=== PATIENT | male | born 1955 | race Caucasian/White ===

== ENCOUNTER 2016-03-10 18:11 | Emergency (ER) | payer OTHER ==
[~2016-03-10] VITALS: Ht 167.6 cm; Wt 107.7 kg
[2016-03-10 18:14] VITALS: TEMP 36.7; Ht 167.6 cm; Wt 107.7 kg
[2016-03-10 19:00] LABS: BASO % 0.3 %; BASO ABS # 0.05 K/uL (0-0.2); COMPLETE YES; EOS % 0.8 %; HEMATOCRIT 40.5 % (42-52); IG% 0.2 %; LYMPH % 10.4 %; LYMPH ABS # 1.52 K/uL (1.2-3.4); MEAN CELL VOLUME 81.7 fL (80-100); MEAN CORPUSCULAR HEMOGLOBIN 29.2 pg (25-34); MEAN CORPUSCULAR HGB CONC 35.8 g/dl (32-36); MONO % 6.9 %; NEUT % 81.4 %; PLATELET COUNT 275 K/uL (130-400); RED BLOOD COUNT 4.96 M/uL (4.7-6.1); WHITE BLOOD COUNT 14.57 K/uL (4.8-10.8)
[2016-03-10 19:16] LABS: CREATININE 1.7 mg/dl (0.60-1.40)
[2016-03-10 19:17] LABS: C-REACTIVE PROTEIN 4.28 mg/dl (0-0.29); CALCIUM 9.1 mg/dl (8.5-10.1); POTASSIUM 4.6 mmol/L (3.5-5.1); URIC ACID 7.7 mg/dl (2.6-7.2)
[2016-03-10] MEDS ORDERED: OXYC-57 PO (19:38)
[2016-03-10] MEDS ORDERED: PERCOCET HOME PACK PO ONE (19:45)
[2016-03-10] MEDS ORDERED: OXYCODONE/ACETAMINOPHEN 5-325 TAB PO ONE (19:45)
--- NOTE | 2016-03-10 19:46 | DIAGNOSTIC IMAGING REPORT ---
RIGHT HAND MIN 3 VIEWS ROUTINE, RIGHT WRIST MIN 3 VIEWS ROUTINE, RIGHT FOREARM 2 VIEWS ROUTINE CLINICAL HISTORY: Right hand, wrist, and forearm pain. COMPARISON STUDY: None. FINDINGS: Soft tissue swelling at the posterior elbow. There does not appear to be a significant elbow effusion. There is also soft tissue swelling at the wrist. 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 No acute fracture or dislocation. There is also soft tissue swelling seen at the dominant and second and third fingers. There is soft tissue swelling at the fifth digit. IMPRESSION: 1. No fracture or dislocation within the right forearm, right wrist, right hand. 2. Soft tissue swelling at the olecranon, wrist, and hand. 3. Moderate degenerative changes. Electronically signed by: Harsha Roberts M.D. 03/10/2016 7:44 PM Dictated Date/Time: 03/10/2016 7:38 PM
[2016-03-10 20:27] VITALS: BP 101/67; PULSE 80; O2SAT 100
[2016-03-10] MEDS ORDERED: NAPR220T PO (22:03)
--- NOTE | 2016-03-11 11:07 | EMERGENCY ROOM VISIT NOTE ---
ED Visit Note First contact with patient: 18:21 Chief Complaint: Right wrist pain and swelling fingers. History of Present Illness: Mr. Moon is a 60-year-old white male who ambulates into the ED accompanied by his son complaining of pain extending from the mid forearm distally to his wrist, hands and fingers. Historically patient was seen in this emergency department on February 02 after 3 -4 days of wrist pain. At that time he denied any specific trauma. This was associated with paresthesias of the finger and he was diagnosed with carpal tunnel syndrome. He was discharged on NSAID medications and encouraged to follow-up with orthopedics. Patient does report he has been taking his NSAID medication without relief of his discomfort but he has not followed up with an sustainability specialist. Currently patient is complaining of a constant sharp pain extending from the mid forearm distally to the fingers in the right upper extremity. He rates his discomfort 10/10. His pain does not radiate superiorly. His pain worsens with palpations, all movements of the wrist and all movements of the MCP joints. He has not identified any alleviating factors related to the pain. As previously noted he reports he has been taken his Naprosyn without relief of his discomfort. Associated with his pain he continues to have paresthesias and weakness in all the fingers and thumb. 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 He denies fevers, chills, sweats, skin eruptions, shoulder pain, neck pain, elbow pain. Review of Systems: As noted above in history of present illness. 5 body systems were reviewed and found to be negative as noted above. Past Medical History: Gout, hypertension. Current Medications: Aleve. Allergies to Medications: Patient denies. Social History: Patient is not currently employed; he feels safe in his home environment; he demised tobacco and alcohol use. Physical Examination: Vital Signs: Date Time Temp Pulse Resp B/P Pulse Ox O2 Delivery O2 Flow Rate FiO2 03/10/16 20:27 80 18 101/67 100 Room Air 03/10/16 18:14 36.7 94 18 158/91 97 Room Air GENERAL: 60-year-old male in mild to moderate distress due to pain, nontoxic- appearing, afebrile and hemodynamically stable. NEUROLOGICAL: Awake, alert and oriented to person, place and time. Answering questions appropriately and following commands. SKIN: Warm, dry and pink. Right Hand: Patient has mild erythema over the posterior aspect of the right hand at the fourth and fifth MCP joints. This area does not appear cellulitic. The skin is not warm to palpation. There is no lymphangitis. RIGHT UPPER EXTREMITY: No gross bony deformity. No tenderness in the shoulder, elbow or proximal forearm. Moderate tenderness starting at the mid forearm and extending throughout the wrist, the hands and fingers. This is associated with mild to moderate swelling that starts at the level of the wrist and proceeds throughout the hand. I do not appreciate any bony crepitus or gross deformities. This entire area is tender to palpation and it is not one specific area. He does have slight prominence of pain over the distal radius and the fourth and fifth MCP joints. Decreased range of motion in pronation and supination of forearm, all movements of the wrist and flexion and extension of all MCP joints due to pain. Throughout the hand the skin was warm and pink and capillary refill was brisk. He was able to distinguish light sensations throughout the hand and fingers but did note there were paresthesias. ED Course: Patient is assessed as noted above. Right Hand X-Rays: Were read by myself and the radiologist showing no acute fractures or dislocations. Moderate osteoarthritis and the DIP and PIP joints with soft tissue swelling at the second, third and fifth fingers. Right Wrist X-Rays: Were read by myself and the radiologist showing no acute fractures or dislocations. There is moderate soft tissue swelling and moderate osteoarthritic changes throughout the wrist. Right Forearm X-Rays: Were read by myself and the radiologist showing no acute fractures or dislocations. Soft tissue swelling at the posterior elbow with no signs of joint effusion. Patient was given ice and one Percocet 5/325 mg tablet by mouth for pain. Patient was placed in an Ortho-Glass splint extending from the upper forearm through the wrist and hand similar to a volar splint. Patient's case was reviewed with Dr. Orta; we agreed on diagnostic approach, treatment, disposition and plan. Patient was educated about tonight's findings and instructed on his treatment plan; he verbalizes understanding and agreement with this plan. Clinical Impression: Right forearm, wrist and hand the pain. Moderate osteoarthritis changes. Decision-Making: Initially my differential diagnosis I considered gout, osteoarthritis, fracture, tendinitis, carpal tunnel syndrome and other causes. Disposition: Patient discharged home in stable condition accompanied by his son ; prior to departure he was reassessed and subjectively reported he was feeling better and rated his discomfort 5/10. Plan: Comfort measures were discussed with the patient including splint use, rest and a sliding pain medication scale of ibuprofen, acetaminophen and Percocet. Patient was encouraged [facility] care and treatment. Patient was encouraged return the ED for worsening/uncontrolled pain, uncontrolled swelling, worsening numbness/tingling, fevers or any new/ concerning symptoms.
== END 2016-03-10 20:28 | disposition home or self-care (01) ==
LOC: C.EDB 18:13 → C.EDD 20:28
DX: M79.631 Pain in right forearm (principal); M79.641 Pain in right hand; M25.531 Pain in right wrist; M19.041 Primary osteoarthritis, right hand; M19.031 Primary osteoarthritis, right wrist; M79.89 Other specified soft tissue disorders; I10 Essential (primary) hypertension

== ENCOUNTER → 2016-04-30 | Outpatient (CLI) | payer OTHER ==
[~2016-04-30] MED LIST: NAPR220T PO; OXYC-57 PO
[2016-04-30 17:25] LABS: BASO % 0.3 %; BASO ABS # 0.03 K/uL (0-0.2); COMPLETE YES; EOS % 1.3 %; HEMATOCRIT 38.6 % (42-52); IG% 0.2 %; LYMPH % 21.5 %; LYMPH ABS # 2.29 K/uL (1.2-3.4); MEAN CELL VOLUME 81.8 fL (80-100); MEAN CORPUSCULAR HEMOGLOBIN 28.4 pg (25-34); MEAN CORPUSCULAR HGB CONC 34.7 g/dl (32-36); MEAN PLATELET VOLUME 10.4 fL (7.4-10.4); MONO % 6.2 %; NEUT % 70.5 %; PLATELET COUNT 344 K/uL (130-400); RED BLOOD COUNT 4.72 M/uL (4.7-6.1); WHITE BLOOD COUNT 10.64 K/uL (4.8-10.8)
[2016-04-30 17:32] LABS: BLOOD UREA NITROGEN 25 mg/dl (7-18); BUN/CREATININE RATIO 14.4 (10-20); GLUCOSE 186 mg/dl (70-99); SODIUM 136 mmol/L (136-145)
[2016-04-30 17:33] LABS: ALT/SGPT 19 U/L (12-78); C-REACTIVE PROTEIN 1.01 mg/dl (0-0.29); CALCIUM 9.2 mg/dl (8.5-10.1); CARBON DIOXIDE 25 mmol/L (21-32); CHLORIDE 103 mmol/L (98-107); POTASSIUM 4.9 mmol/L (3.5-5.1)
[2016-04-30 17:36] LABS: ALB/GLOB RATIO 0.7 (0.9-2); ALKALINE PHOSPHATASE 130 U/L (45-117); AST/SGOT 14 U/L (15-37); CHOLESTEROL 225 mg/dl (0-200); CHOLESTEROL/HDL RATIO 5.6; HDL CHOLESTEROL 40 mg/dl; LDL CHOLESTEROL CALCULATED 122 mg/dl; RHEUMATOID FACTOR < 10.0 U/mL (0-15); TRIGLYCERIDES 313 mg/dl (0-150); VERY LOW DENSITY LIPOPROT CALC 63 mg/dl
[2016-04-30 17:52] LABS: ESTIMATED AVERAGE GLUCOSE 183 mg/dl; HA1C FLAG Normal (Normal)
== END | disposition home or self-care (01) ==
LOC: C.LABBFT 17:57
PROVIDERS: ATTEND Internal Medicine
DX: E78.5 Hyperlipidemia, unspecified (principal); I10 Essential (primary) hypertension; E11.9 Type 2 diabetes mellitus without complications; R70.0 Elevated erythrocyte sedimentation rate; R70.1 Abnormal plasma viscosity

== ENCOUNTER → 2016-05-07 | Outpatient (CLI) | payer OTHER ==
[2016-05-07 12:37] LABS: BASO % 0.1 %; BASO ABS # 0.02 K/uL (0-0.2); COMPLETE YES; EOS % 0.8 %; HEMATOCRIT 36.7 % (42-52); IG% 0.3 %; LYMPH % 11.5 %; LYMPH ABS # 1.56 K/uL (1.2-3.4); MEAN CELL VOLUME 81.2 fL (80-100); MEAN CORPUSCULAR HEMOGLOBIN 28.1 pg (25-34); MEAN CORPUSCULAR HGB CONC 34.6 g/dl (32-36); MEAN PLATELET VOLUME 10.7 fL (7.4-10.4); MONO % 10.1 %; NEUT % 77.2 %; PLATELET COUNT 294 K/uL (130-400); RED BLOOD COUNT 4.52 M/uL (4.7-6.1); WHITE BLOOD COUNT 13.61 K/uL (4.8-10.8)
[2016-05-07 12:42] LABS: BLOOD UREA NITROGEN 15 mg/dl (7-18); BUN/CREATININE RATIO 9.1 (10-20); CARBON DIOXIDE 21 mmol/L (21-32); CHLORIDE 103 mmol/L (98-107); GLUCOSE 254 mg/dl (70-99); PHOSPHORUS 2.9 mg/dl (2.5-4.9); POTASSIUM 4.4 mmol/L (3.5-5.1); SODIUM 135 mmol/L (136-145)
[2016-05-07 12:45] LABS: FERRITIN 261.4 ng/ml (8.0-388.0); TOTAL IRON BINDING CAPACITY 256 mcg/dl (250-450)
[2016-05-08 16:36] LABS: ALBUMIN 3.4 G/DL (3.8-4.8); GAMMA GLOBULIN 1.4 G/DL (0.8-1.7); TOTAL PROTEIN 7.1 G/DL (6.2-8.3)
== END | disposition home or self-care (01) ==
LOC: C.LABBFT 10:32
PROVIDERS: ATTEND Internal Medicine
DX: E11.29 Type 2 diabetes mellitus with other diabetic kidney complication (principal); D64.9 Anemia, unspecified; R77.1 Abnormality of globulin

== ENCOUNTER → 2016-05-08 | Outpatient (CLI) | payer OTHER ==
[2016-05-08 12:24] LABS: URINE APPEARANCE CLEAR (CLEAR); URINE BILIRUBIN NEG (NEG); URINE COLOR YELLOW; URINE NITRITE NEG (NEG); URINE SPECIFIC GRAVITY 1.018 (1.000-1.030); UROBILINOGEN NEG (NEG)
[2016-05-08 12:34] LABS: MANUAL MICROSCOPIC REQUIRED? NO; REVIEW REQ? NO
[2016-05-08 13:03] LABS: URINE TOTAL PROTEIN 165.2 mg/dl (0-11.9)
== END | disposition home or self-care (01) ==
LOC: C.LABBFT 10:19
PROVIDERS: ATTEND Internal Medicine
DX: E11.29 Type 2 diabetes mellitus with other diabetic kidney complication (principal)

== ENCOUNTER → 2016-05-09 | Outpatient (CLI) | payer OTHER ==
[2016-05-09 11:34] LABS: PATIENT HEIGHT 170.2 cm
[2016-05-09 15:50] LABS: CREATININE 1.5 mg/dl (0.6-1.4)
[2016-05-09 16:09] LABS: URINE TOTAL PROTEIN 140.1 mg/dl (0-11.9)
[2016-05-13 06:17] LABS: ALBUMIN % 76.66 %; ALPHA-2-GLOBULIN % 3.46 %; BETA GLOBULIN % 7.98 %; CREATININE UR 124 MG/DL (20-370); GAMMA GLOBULIN % 10.93 %
== END | disposition home or self-care (01) ==
LOC: C.LABBFT 11:24
PROVIDERS: ATTEND Internal Medicine
DX: E11.29 Type 2 diabetes mellitus with other diabetic kidney complication (principal); R77.1 Abnormality of globulin

== ENCOUNTER → 2016-05-19 | Outpatient (CLI) | payer OTHER ==
--- NOTE | 2016-05-19 09:00 | DIAGNOSTIC IMAGING REPORT ---
ULTRASOUND KIDNEYS AND BLADDER CLINICAL HISTORY: Diabetes mellitus. COMPARISON STUDY: Abdominal CT dated 04/05/12. TECHNIQUE: Real-time, grayscale, and color flow sonography of the kidneys and bladder is performed. Images are reviewed in the transverse and longitudinal planes. FINDINGS: Kidneys: The kidneys there is straightening mild cortical atrophy and are normal in echotexture. The right kidney measures 11.3 x 5.5 x 6.1 cm and the left kidney measures 10.3 x 6.1 x 6.0 cm. There is no hydronephrosis. No shadowing renal calculi are identified. 2 right-sided renal cysts measure up to 1.7 cm. There is no sonographic evidence of solid mass lesion. No perinephric fluid is identified. Bladder: The bladder is decompressed. The bladder wall appears thickened and trabeculated suggesting chronic outlet obstruction. There is median lobe hypertrophy of the prostate. Bilateral ureteral jets were seen. Upper abdomen: Survey images of the liver show evidence of steatosis. IMPRESSION: 1. The kidneys demonstrate mild cortical atrophy and are without hydronephrosis. 2. The appearance of the bladder wall suggests chronic outlet obstruction. There is median lobe hypertrophy of the prostate. Electronically signed by: Donnell Daniel M.D. 05/19/2016 8:59 AM Dictated Date/Time: 05/19/2016 8:56 AM
== END | disposition home or self-care (01) ==
LOC: C.ULTR 08:06
PROVIDERS: ATTEND Internal Medicine
DX: E11.29 Type 2 diabetes mellitus with other diabetic kidney complication (principal); E11.65 Type 2 diabetes mellitus with hyperglycemia

== ENCOUNTER → 2016-09-11 | Outpatient (CLI) | payer OTHER ==
[~2016-09-11] MED LIST changes: -OXYC-57 PO
[2016-09-11 12:41] LABS: BASO % 0.6 %; BASO ABS # 0.05 K/uL (0-0.2); COMPLETE YES; HEMATOCRIT 40.3 % (42-52); IG% 0.2 %; LYMPH % 20.6 %; LYMPH ABS # 1.84 K/uL (1.2-3.4); MEAN CELL VOLUME 83.3 fL (80-100); MEAN CORPUSCULAR HEMOGLOBIN 28.1 pg (25-34); MEAN CORPUSCULAR HGB CONC 33.7 g/dl (32-36); MONO % 9.4 %; NEUT % 67.2 %; PLATELET COUNT 272 K/uL (130-400); RED BLOOD COUNT 4.84 M/uL (4.7-6.1); WHITE BLOOD COUNT 8.92 K/uL (4.8-10.8)
[2016-09-11 13:22] LABS: ESTIMATED AVERAGE GLUCOSE 120 mg/dl; HA1C FLAG Normal (Normal)
[2016-09-11 17:27] LABS: BLOOD UREA NITROGEN 20 mg/dl (7-18); BUN/CREATININE RATIO 14.1 (10-20); CALCIUM 9.3 mg/dl (8.5-10.1); CARBON DIOXIDE 25 mmol/L (21-32); CHLORIDE 106 mmol/L (98-107); GLUCOSE 112 mg/dl (70-99); POTASSIUM 4.5 mmol/L (3.5-5.1); SODIUM 138 mmol/L (136-145)
[2016-09-11 17:32] LABS: FERRITIN 190.3 ng/ml (8.0-388.0); TOTAL IRON BINDING CAPACITY 253 mcg/dl (250-450); URIC ACID 7.7 mg/dl (2.6-7.2)
[2016-09-11 18:36] LABS: LYME DISEASE AB IGG NEG (NEG); LYME DISEASE AB IGM NEG (NEG)
== END | disposition home or self-care (01) ==
LOC: C.LABBFT 11:14
PROVIDERS: ATTEND Internal Medicine
DX: N18.2 Chronic kidney disease, stage 2 (mild) (principal); M10.9 Gout, unspecified; M25.442 Effusion, left hand; E11.29 Type 2 diabetes mellitus with other diabetic kidney complication; D64.9 Anemia, unspecified; E55.9 Vitamin D deficiency, unspecified

== ENCOUNTER 2017-06-04 17:03 | Inpatient (IN) | payer OTHER ==
[~2017-06-04] VITALS: Ht 170.2 cm; Wt 102.8 kg
[2017-06-04] MEDS ORDERED: SODIUM CHLORIDE 0.9% 1000ML 1,000 ML IV STA ×2 (17:39→19:12)
[2017-06-04] MEDS ORDERED: ONDANSETRON INJ 2 MG/ML 2 ML VIAL IV STA (17:39)
[2017-06-04 18:24] LABS: BASO % 0.1 %; BASO ABS # 0.02 K/uL (0-0.2); EOS % 0.2 %; EOS ABS # 0.03 K/uL (0-0.5); HEMATOCRIT 35.2 % (42-52); HEMOGLOBIN 12.3 g/dL (14.0-18.0); IG# 0.09 K/uL (0.00-0.02); LYMPH ABS # 0.61 K/uL (1.2-3.4); MEAN CELL VOLUME 80.4 fL (80-100); MEAN CORPUSCULAR HEMOGLOBIN 28.1 pg (25-34); MEAN CORPUSCULAR HGB CONC 34.9 g/dl (32-36); MEAN PLATELET VOLUME 11.1 fL (7.4-10.4); MONO % 7.4 %; MONO ABS # 1.12 K/uL (0.11-0.59); NEUT % 87.7 %; NEUT ABS # 13.27 K/uL (1.4-6.5); PLATELET COUNT 170 K/uL (130-400); RED CELL DISTRIBUTION WIDTH CV 13.5 % (11.5-14.5); RED CELL DISTRIBUTION WIDTH SD 39.7 fL (36.4-46.3); WHITE BLOOD COUNT 15.14 K/uL (4.8-10.8)
--- NOTE | 2017-06-04 18:24 | DIAGNOSTIC IMAGING REPORT ---
CHEST ONE VIEW PORTABLE CLINICAL HISTORY: 62 years-old Male presenting with coarse breath sounds. TECHNIQUE: Portable upright AP view of the chest was obtained. COMPARISON: None. FINDINGS: Atherosclerosis of aortic arch. Cardiac silhouette enlarged. Mild prominence of pulmonary vasculature. Minimal hazy opacity at the right lung base. Small right pleural effusion. No large pneumothorax Osseous structures normal. IMPRESSION: 1. Right basilar infiltrate concerning for pneumonia. 2. Associated small right pleural effusion, possibly parapneumonic effusion. 3. Cardiomegaly with mild volume overload. No parker pulmonary edema. Electronically signed by: Telly Sol M.D. 06/04/2017 6:23 PM Dictated Date/Time: 06/04/2017 6:20 PM
[2017-06-04] MEDS ORDERED: HYDR5SYP11 PO (18:28)
[2017-06-04] MEDS ORDERED: LSN5 PO (18:28)
[2017-06-04] MEDS ORDERED: BXN500 PO (18:28)
[2017-06-04] MEDS ORDERED: ROSU10TA35 PO (18:28)
[2017-06-04] MEDS ORDERED: ALLO100T PO (18:28)
[2017-06-04] MEDS ORDERED: FERR1TAB62 PO (18:28)
[2017-06-04] MEDS ORDERED: AMR2 PO (18:28)
[2017-06-04 18:30] LABS: INR 0.9 (0.9-1.1); PTT PATIENT 32.9 SECONDS (21.0-31.0)
[2017-06-04 18:44] LABS: INFLUENZA B ANTIGEN Neg for Influ B (NEG)
[2017-06-04 19:06] LABS: ALBUMIN 2.2 gm/dl (3.4-5.0); CALCIUM 8.6 mg/dl (8.5-10.1); CREATININE 5.29 mg/dl (0.60-1.40); POTASSIUM 4.4 mmol/L (3.5-5.1); TOTAL PROTEIN 7.5 gm/dl (6.4-8.2)
[2017-06-04] MEDS ORDERED: CEFTRIAXONE SOD INJ 1 GM ADDVIAL IV STA (19:12)
[2017-06-04] MEDS ORDERED: AZITHROMYCIN IV 500 MG in DEXTROSE 5% 250ML 250 ML IV ONE (19:15)
[2017-06-04] MEDS ORDERED: PIPERACILL/TAZOBAC CONSULT ACTIVE PRN (20:15)
[2017-06-04] MEDS ORDERED: ALUMINUM/MAGNESIUM/SIMETH (MAALOX MAX) 30 ML UDC PO PRN (20:15)
[2017-06-04] MEDS ORDERED: MAGNESIUM HYDROXIDE SUSP 30 ML UDC PO PRN (20:15)
[2017-06-04] MEDS ORDERED: POLYETHYLENE (MIRALAX) 17 GM PACK PO PRN (20:15)
[2017-06-04] MEDS ORDERED: ONDANSETRON INJ 2 MG/ML 2 ML VIAL IV PRN (20:15)
[2017-06-04 20:30] VITALS: O2SAT 94; BMI 35.9
--- NOTE | 2017-06-04 20:33 | History and Physical ---
History & Physical Date & Time of Service: Jun 04, 2017 at 20:04 Chief Complaint: Respiratory Issues, Light Headed, Not Eating Primary Care Physician: Jagdeep Turk M.D. History of Present Illness Source: patient, family (niece) 62M with a PMHx of DM2 on oral agents, Gout, HTN p/w worsening fatigue. Pt was diagnosed with pneumonia as outpatient several days ago and was given clarithromycin. Pt states that his fatigue has continued to worsen. Has had poor PO intake for the past few days. Pt is accompanied by niece who says his mental status has slightly decreased from baseline. Pt denies any pain. He has been coughing a lot. A close contact family member was diagnosed two weeks ago with Influenza B. Pt's normal is walking, talking, he helps out his buddies with work projects. ROS: No abdominal pain, no dysuria, no leg pain, no gout attacks, no chest pain , no blurry vision, no N&Tingling, no diarrhea. Did vomit once after coughing so much. PMHx: Gout (no recent attacks). DM2, well controlled on Glimepiride. Denies any history of liver or kidney issues. PT denies liver issues, never had hepatitis. HBA1C was 7's in late 2017. Takes Naproxen. SHx: Does not chew, non smoker, no aclohol, denies all IV drug use. 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 Lives in [place]. Past Medical/Surgical History Medical Problems: (1) Carpal tunnel syndrome of right wrist (2) Cellulitis of hand, right (3) Diabetes mellitus with hyperglycemia Family History Cancer Diabetes mellitus Heart disease Hypertension Kidney disease Kidney stones Social History Smoking Status: Never Smoker Smokeless Tobacco Use: No Alcohol Use: none Drug Use: none Marital Status: single Housing status: lives alone Occupational Status: employed Immunizations History of Influenza Vaccine: Yes History of Tetanus Vaccine?: Yes History of Pneumococcal: Yes History of Hepatitis B Vaccine: No Allergies Coded Allergies: No Known Allergies (Unverified , 06/04/17) Home Medications Scheduled Allopurinol (Zyloprim), 100 MG PO DAILY Clarithromycin (Clarithromycin), 500 MG PO Q12 Ferrous Sulfate (Ferrous Sulfate), 325 MG PO BID Glimepiride (Glimepiride), 2 MG PO DAILY Lisinopril (Lisinopril), 5 MG PO DAILY Rosuvastatin Calcium (Rosuvastatin Calcium), 10 MG PO HS Scheduled PRN Hydrocodone W/ Homatropine (Hycodan 5/1.5MG 5 Ml), 5 ML PO Q4-6HRS PRN for Cough Naproxen Sodium (Aleve), 220 MG PO UD PRN for Pain Review of Systems Respiratory: + cough, + shortness of breath Cardiovascular: No chest pain Abdomen: + vomiting, No pain, No nausea, No diarrhea, No constipation Genitourinary - Male: No hematuria, No dysuria, No urinary frequency Endocrine: + fatigue Integumentary: No rash Physical Exam Vital Signs Date Time Temp Pulse Resp B/P (MAP) Pulse Ox O2 Delivery O2 Flow Rate FiO2 06/04/17 18:33 91 18 95 06/04/17 18:03 92 12 06/04/17 18:00 103 06/04/17 17:50 95 Room Air 06/04/17 17:15 36.7 99 22 90/61 95 Room Air General Appearance: WD/WN, no apparent distress Head: normocephalic, atraumatic Eyes: PERRL Neck: supple, no adenopathy, thyroid normal Respiratory/Chest: chest non-tender, no respiratory distress, no accessory muscle use, + pertinent finding (right and left bibasilar crackles, worse on the right. 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, no motor/sensory deficits, alert, normal mood/affect, normal reflexes, oriented x 3 Skin: normal color, warm/dry, no rash Diagnostics Laboratory Results Results Past 24 Hours Test 06/04/17 17:56 06/04/17 17:59 Range/Units Influenza Type A Antigen Neg for Influ A NEG Influenza Type B Antigen Neg for Influ B NEG White Blood Count 15.14 4.8-10.8 K/uL Red Blood Count 4.38 4.7-6.1 M/uL Hemoglobin 12.3 14.0-18.0 g/dL Hematocrit 35.2 42-52 % Mean Corpuscular Volume 80.4 80-100 fL Mean Corpuscular Hemoglobin 28.1 25-34 pg Mean Corpuscular Hemoglobin Concent 34.9 32-36 g/dl Platelet Count 170 130-400 K/uL Mean Platelet Volume 11.1 7.4-10.4 fL Neutrophils (%) (Auto) 87.7 % Lymphocytes (%) (Auto) 4.0 % Monocytes (%) (Auto) 7.4 % Eosinophils (%) (Auto) 0.2 % Basophils (%) (Auto) 0.1 % Neutrophils # (Auto) 13.27 1.4-6.5 K/uL Lymphocytes # (Auto) 0.61 1.2-3.4 K/uL Monocytes # (Auto) 1.12 0.11-0.59 K/uL Eosinophils # (Auto) 0.03 0-0.5 K/uL Basophils # (Auto) 0.02 0-0.2 K/uL RDW Standard Deviation 39.7 36.4-46.3 fL RDW Coefficient of Variation 13.5 11.5-14.5 % Immature Granulocyte % (Auto) 0.6 % Immature Granulocyte # (Auto) 0.09 0.00-0.02 K/uL Prothrombin Time 9.7 9.0-12.0 SECONDS Prothromb Time International Ratio 0.9 0.9-1.1 Activated Partial Thromboplast Time 32.9 21.0-31.0 SECONDS Partial Thromboplastin Ratio 1.3 Sodium Level 127 136-145 mmol/L Potassium Level 4.4 3.5-5.1 mmol/L Chloride Level 94 98-107 mmol/L Carbon Dioxide Level 23 21-32 mmol/L Anion Gap 10.0 3-11 mmol/L Blood Urea Nitrogen 90 7-18 mg/dl Creatinine 5.29 0.60-1.40 mg/dl Est Creatinine Clear Calc Drug Dose 17.1 ml/min Estimated GFR () 12.6 Estimated GFR (Non- 10.9 BUN/Creatinine Ratio 17.0 10-20 Random Glucose 138 70-99 mg/dl Calcium Level 8.6 8.5-10.1 mg/dl Magnesium Level 2.2 1.8-2.4 mg/dl Total Bilirubin 2.7 0.2-1 mg/dl Direct Bilirubin 1.8 0-0.2 mg/dl Aspartate Amino Transf (AST/SGOT) 48 15-37 U/L Alanine Aminotransferase (ALT/SGPT) 33 12-78 U/L Alkaline Phosphatase 118 45-117 U/L Total Protein 7.5 6.4-8.2 gm/dl Albumin 2.2 3.4-5.0 gm/dl Lipase 68 73-393 U/L Thyroid Stimulating Hormone (TSH) 0.553 0.300-4.500 uIu/ml Diagnostic Radiology CHEST ONE VIEW PORTABLE CLINICAL HISTORY: 62 years-old Male presenting with coarse breath sounds. TECHNIQUE: Portable upright AP view of the chest was obtained. COMPARISON: None. FINDINGS: Atherosclerosis of aortic arch. Cardiac silhouette enlarged. Mild prominence of pulmonary vasculature. Minimal hazy opacity at the right lung base. Small right pleural effusion. No large pneumothorax Osseous structures normal. IMPRESSION: 1. Right basilar infiltrate concerning for pneumonia. 2. Associated small right pleural effusion, possibly parapneumonic effusion. 3. Cardiomegaly with mild volume overload. No parker pulmonary edema. ABD/PELVIS NO IV OR ORAL CONT CLINICAL HISTORY: 62 years-old Male presenting with acute renal failure. TECHNIQUE: Multidetector CT of the abdomen and pelvis was performed without the use of intravenous contrast. IV contrast: None. A dose lowering technique was used consistent with the principles of ALARA (as low as reasonably achievable). COMPARISON: 04/05/2012. CT DOSE (mGy.cm): The estimated cumulative dose is 1120.91 mGy.cm. FINDINGS: Head Of Data topogram: Unremarkable. Lung bases: Extensive solid and groundglass consolidation in the right lower lobe primarily in a central distribution. Is also involves the right middle lobe. Pleural fluid or pleural thickening noted in the right major fissure. Additional more peripheral solid consolidation in the right lower lobe. Less extensive groundglass opacity noted in the left lower lobe as well as a centrally cavitating lesion in the posterior basal segment with a wall that measures approximately 4 mm in thickness (series 3 image 50). Normal heart size. Trace right pleural effusion. Liver: Normal morphology. Density consistent with hepatic steatosis. Biliary: No gross biliary ductal dilatation allowing for noncontrast technique. Gallbladder contains gallstones. Pancreas: Moderate parenchymal atrophy. Spleen: Parenchymal calcifications in the spleen suggest a history of chronic granulomas infection. The spleen is also mildly enlarged. Adrenal glands: Normal noncontrast appearance. Kidneys and ureters: Ill-defined hypodense lesion in the interpolar region of the right kidney is indeterminate. No hydronephrosis. Questionable calcification in the medullary pyramids of the kidneys versus miniscule punctate renal calculi. Ureters normal. Bladder: Circumferential bladder wall thickening likely indicating chronic bladder outlet obstruction. Pelvic organs: Prostate enlargement likely secondary to benign prostatic hyperplasia. Bowel: Postsurgical changes of appendectomy. No bowel obstruction. Peritoneal cavity: No free fluid or intraperitoneal gas. Lymph nodes: No gross lymphadenopathy allowing for noncontrast technique. Vasculature: Atherosclerosis of the normal caliber abdominal aorta. Abdominal wall: Normal. Musculoskeletal: Degenerative changes of the spine. IMPRESSION: 1. Findings consistent with multifocal pneumonia most prominently involving the right lower and right middle lobes. The full extent of the pneumonia is not fully visualized. Small right parapneumonic effusion. 2. Cavitary lesion and limited groundglass opacity in the left lower lobe. This is worrisome for multifocal involvement of infection. Specifically, the cavitary lesion is worrisome for a pulmonary abscess or as a consequence of septic emboli. Full imaging of the chest is recommended with chest CT. Differential considerations for this cavitary lesion are considered less likely but include neoplasm such as squamous cell carcinoma or vasculitis. 3. No acute intra-abdominal pathology. 4. Evidence of chronic bladder outlet obstruction secondary to prostatomegaly. 5. Postsurgical changes of appendectomy. 6. Ill-defined indeterminate right renal lesion, which may represent a cyst as seen on prior ultrasound from 05/19/2016. The report will be called/faxed according to standard departmental protocol. EKG Normal sinus rhythm Possible Left atrial enlargement Possible Anterior infarct (cited on or before 05-APR-2012) Abnormal ECG When compared with ECG of 05-APR-2012 23:15, No significant change was found Impression Assessment and Plan 62M with a PMHx of DM2 on oral agents, Gout, HTN p/w worsening fatigue, dehydration likely secondary to pneumonia and LINDSEY. Not altered. No cardiac history. Giving Zosyn, IVF and checking panels. CT abdo and lactate pending on admission. Pneumonia Crackles in LLL and RLL. Confirmed by X-ray. No chronic pneumonias. Never smoker. CT Abdo showed multifocal pneumonia in the RLL and RML and a worriesome LLL cavitary lesion suggesting abscess or consequence of septic embolic. CT Chest pending - consider Pulmonary consult or thoracic surgery if needed. s/p Ceftriaxone and Azithromycin in the ED. IV Zosyn renally dosed. Will obtain Blood cultures (obtained after Ceftriaxone and Azithromycin given in the ER. FYI.) LINDSEY s/p 2L of NSS in the ER. IVF of 125mls/hr, NSS. Follow up UA and CT Scans. Hyponatremia (127) NSS as above, watch for too rapid correction. Hyperbilirubinemia & Elevated LFTs. Unknown Origin. Will follow up findings from CT Abdo and Pelvis. CMP in AM. Will get Hepatitis Panel, pt denies any Hepatitis History or IV drug use. HLD c/w Rosuvastatin Gout Hold Allopurinol due to LINDSEY Prostatomegaly Incidental finding on CT, consider starting Flomax or putting in a diaz if symptomatic - pt did have trouble producing urine sample in the ER. DVT Proph Hep SQ TID Admit Tele. DIET: NPO after midnight except meds and ice chips and sips. FULL CODE Attending addendum: I have physically seen this patient, have supervised the medical residents activities, and agree with the H&P unless as otherwise noted. Assessment and Plan: Multifocal pneumonia/left lower lobe cavitary lesion-- Given ceftriaxone in the ED, and azithromycin canceled. Vancomycin IV per pharmacokinetic monitoring Zosyn 3.375 mg IV every 8 hours Levofloxacin 500 mg IV every 24 hours Duonebs every 4 hours while awake and every 2 hours when necessary. Solu-Medrol 40 mg IV every 8 hours Guaifenesin extended release 600 mg by mouth twice a day Nasal cannula oxygen titrate to keep pulse ox greater than or equal to 92% Sputum Gram stain and culture Duonebs every 4 hours while awake and every 2 hours when necessary. Acute renal failure/hyponatremia-- Creatinine 5.29 and sodium 127. Received 2 L normal saline in the ED. Place on normal saline at 125 ML's per hour. Serial BMP and magnesium levels. Abnormal LFTs-- Serial chemistry profile Acute hepatitis profile, urine drug screen and alcohol levels. Advanced Directives Existing Advance Directive: No Existing Living Will: No Existing Power of Ramp Agent: No Resuscitation Status VTE Prophylaxis Will order VTE Prophylaxis: Yes Social Service Consult None Apply Resident Involvement: Resident Care Provided Care Provided: Adult Hospital Medicine
--- NOTE | 2017-06-04 20:48 | DIAGNOSTIC IMAGING REPORT ---
ABD/PELVIS NO IV OR ORAL CONT CLINICAL HISTORY: 62 years-old Male presenting with acute renal failure. TECHNIQUE: Multidetector CT of the abdomen and pelvis was performed without the use of intravenous contrast. IV contrast: None. A dose lowering technique was used consistent with the principles of ALARA (as low as reasonably achievable). COMPARISON: 04/05/2012. CT DOSE (mGy.cm): The estimated cumulative dose is 1120.91 mGy.cm. FINDINGS: [employer] Manager topogram: Unremarkable. Lung bases: Extensive solid and groundglass consolidation in the right lower lobe primarily in a central distribution. Is also involves the right middle lobe. Pleural fluid or pleural thickening noted in the right major fissure. Additional more peripheral solid consolidation in the right lower lobe. Less extensive groundglass opacity noted in the left lower lobe as well as a centrally cavitating lesion in the posterior basal segment with a wall that measures approximately 4 mm in thickness (series 3 image 50). Normal heart size. Trace right pleural effusion. Liver: Normal morphology. Density consistent with hepatic steatosis. Biliary: No gross biliary ductal dilatation allowing for noncontrast technique. Gallbladder contains gallstones. Pancreas: Moderate parenchymal atrophy. Spleen: Parenchymal calcifications in the spleen suggest a history of chronic granulomas infection. The spleen is also mildly enlarged. Adrenal glands: Normal noncontrast appearance. Kidneys and ureters: Ill-defined hypodense lesion in the interpolar region of the right kidney is indeterminate. No hydronephrosis. Questionable calcification in the medullary pyramids of the kidneys versus miniscule punctate renal calculi. Ureters normal. Bladder: Circumferential bladder wall thickening likely indicating chronic bladder outlet obstruction. Pelvic organs: Prostate enlargement likely secondary to benign prostatic hyperplasia. Bowel: Postsurgical changes of appendectomy. No bowel obstruction. Peritoneal cavity: No free fluid or intraperitoneal gas. Lymph nodes: No gross lymphadenopathy allowing for noncontrast technique. Vasculature: Atherosclerosis of the normal caliber abdominal aorta. Abdominal wall: Normal. Musculoskeletal: Degenerative changes of the spine. IMPRESSION: 1. Findings consistent with multifocal pneumonia most prominently involving the right lower and right middle lobes. The full extent of the pneumonia is not fully visualized. Small right parapneumonic effusion. 2. Cavitary lesion and limited groundglass opacity in the left lower lobe. This is worrisome for multifocal involvement of infection. Specifically, the cavitary lesion is worrisome for a pulmonary abscess or as a consequence of septic emboli. Full imaging of the chest is recommended with chest CT. Differential considerations for this cavitary lesion are considered less likely but include neoplasm such as squamous cell carcinoma or vasculitis. 3. No acute intra-abdominal pathology. 4. Evidence of chronic bladder outlet obstruction secondary to prostatomegaly. 5. Postsurgical changes of appendectomy. 6. Ill-defined indeterminate right renal lesion, which may represent a cyst as seen on prior ultrasound from 05/19/2016. The report will be called/faxed according to standard departmental protocol. Electronically signed by: Telly Sol M.D. 06/04/2017 8:47 PM Dictated Date/Time: 06/04/2017 8:39 PM
[2017-06-04 21:23] VITALS: BP 127/80; PULSE 89; TEMP 37; O2SAT 94
[2017-06-04] MEDS ORDERED: PIPERACILL/TAZOBAC IV 4.5 GM in DEXTROSE 5% 100ML 100 ML IV ONE (21:30)
[2017-06-04] MEDS ORDERED: NAPR220T PO (22:03)
--- NOTE | 2017-06-04 22:27 | DIAGNOSTIC IMAGING REPORT ---
(CHEST) THORAX WITHOUT CLINICAL HISTORY: 62 years-old Male presenting with Evaluate Multifocal lesions, as seen on CT [place]. TECHNIQUE: Multidetector CT imaging of the chest was performed without the use of intravenous contrast. IV contrast: None. A dose lowering technique was used consistent with the principles of ALARA (as low as reasonably achievable). COMPARISON: Chest x-ray from earlier today. CT DOSE (mGy.cm): The estimated cumulative dose is 791.54 mGy.cm. FINDINGS: [employer] Manager topogram: Right basilar opacity. On soft tissue windows, normal thyroid. Bilateral gynecomastia. Numerous subcentimeter prominent mediastinal lymph nodes likely reactive. Normal aorta. Normal heart size. Small right pleural effusion. Calcified right pleural plaques. Hepatic steatosis. Parenchymal calcifications in the liver and spleen suggest a history of chronic granulomatous infection. On lung windows, extensive solid and groundglass consolidation in the right lower lobe centrally as well as the adjacent posterior central portion of the right middle lobe. Extensive cystic changes evident in the right lower lobe, which may reflect bronchiectasis at least in part. Peripheral consolidation in the right lower lobe. Extensive interlobular septal thickening in the right lower lobe centrally. Consolidation also noted in the superior segment of the left lower lobe. Patchy minimal groundglass opacity in the right upper lobe. Cavitary thick-walled lesion noted in the posterior basal left lower lobe. Minimal aerated secretions or debris within the cavity noted. Central airways patent. On bone windows, degenerative changes of the spine. IMPRESSION: 1. Findings consistent with multifocal pneumonia most prominently involving the right lower lobe. Consolidation involves all but the left upper lobe to varying degrees. Small parapneumonic effusion. 2. The degree of cystic change and/or bronchiectasis in the right lower lobe could suggest chronicity of infection. 3. Cavitary lesion in the left lower lobe. This may also relate to infection although this does raise concern for septic embolus. Given the extent of infection, this is felt less likely to represent neoplasm or vasculitis. 4. Calcified right pleural plaques suggest a history of asbestos exposure. 5. Peripheral consolidation in the right lower lobe could suggest rounded atelectasis, although involvement with infection is also likely. 6. Hepatic steatosis. 7. Evidence of prior granulomatous infection. Electronically signed by: Telly Sol M.D. 06/04/2017 10:25 PM Dictated Date/Time: 06/04/2017 10:15 PM
[2017-06-04 23:11] LABS: HEP C IGG 13 YRS+OLDER_RFLX NEG (NEG)
[2017-06-04 23:12] VITALS: BP 120/72; PULSE 90; TEMP 37.1; O2SAT 92
[2017-06-04] MEDS: SODIUM CHLORIDE 0.9% 1000ML 1,000 ML IV SCH (23:54)
[2017-06-04] MEDS: ACETAMINOPHEN 325 MG TAB PO PRN (23:55)
[2017-06-04] MEDS: HEPARIN SOD 5000 UNIT/0.5 ML CARP SQ SCH (23:59)
[2017-06-05 04:53] VITALS: BP 116/74; PULSE 81; TEMP 36.4; O2SAT 92
[2017-06-05 05:32] LABS: BASO % 0.1 %; BASO ABS # 0.01 K/uL (0-0.2); EOS % 0.8 %; HEMATOCRIT 32.1 % (42-52); HEMOGLOBIN 11.4 g/dL (14.0-18.0); IG# 0.07 K/uL (0.00-0.02); LYMPH % 4.8 %; LYMPH ABS # 0.61 K/uL (1.2-3.4); MEAN CELL VOLUME 79.5 fL (80-100); MEAN CORPUSCULAR HEMOGLOBIN 28.2 pg (25-34); MEAN CORPUSCULAR HGB CONC 35.5 g/dl (32-36); MEAN PLATELET VOLUME 10.5 fL (7.4-10.4); MONO % 8.8 %; MONO ABS # 1.11 K/uL (0.11-0.59); NEUT % 84.9 %; NEUT ABS # 10.76 K/uL (1.4-6.5); PLATELET COUNT 166 K/uL (130-400); RED CELL DISTRIBUTION WIDTH CV 13.5 % (11.5-14.5); RED CELL DISTRIBUTION WIDTH SD 39.1 fL (36.4-46.3); WHITE BLOOD COUNT 12.66 K/uL (4.8-10.8)
[2017-06-05 05:57] LABS: CALCIUM 8.2 mg/dl (8.5-10.1); CREATININE 3.82 mg/dl (0.60-1.40)
[2017-06-05] MEDS: SODIUM CHLORIDE 0.9% 1000ML 1,000 ML IV SCH ×3 (05:58→21:38)
[2017-06-05] MEDS: HEPARIN SOD 5000 UNIT/0.5 ML CARP SQ SCH ×3 (05:59→21:36)
[2017-06-05 06:00] LABS: TOTAL PROTEIN 6.8 gm/dl (6.4-8.2)
[2017-06-05] MEDS ORDERED: PIPERACILL/TAZOBAC IV 4.5 GM in SODIUM CHLORIDE 0.9% 100ML 100 ML IV SCH ×2 (06:00→14:00)
[2017-06-05] MEDS: ACETAMINOPHEN 325 MG TAB PO PRN ×2 (06:02→15:29)
[2017-06-05 07:21] VITALS: BP 127/74; PULSE 92; TEMP 36.7; O2SAT 91
--- NOTE | 2017-06-05 08:59 | Family Medicine Progress Note ---
Progress Note Date of Service Jun 05, 2017. Subjective Pt evaluation today including: conversation w/ patient Found patient resting in bed. Says that his breathing seems to have improved overnight. Only current c/o is a mild generalized headache. Denies any CP, SOB , or abdominal pain. No other acute patient concerns. This afternoon, found patient conversing easily. Says he feels "pretty good", denies a headache, but has his cough with phlegm. Denies any SOB or interval concerns. Constitutional: No fever, No chills Respiratory: + cough, No shortness of breath Cardiovascular: No chest pain, No edema Abdomen: No pain, No nausea, No vomiting Medications Current Inpatient Medications Medications (Trade) Dose Ordered Sig/Camron Route Start Time Stop Time Status Last Admin Dose Admin Heparin Sodium (Porcine) (Heparin Sq 5000 Unit/0.5ml) 5,000 unit Q8 SQ 06/04/17 22:00 07/04/17 21:59 06/05/17 05:59 5,000 UNIT Sodium Chloride 1,000 ml @ 125 mls/hr Q8H IV 06/04/17 21:30 06/06/17 21:29 06/05/17 05:58 125 MLS/HR Acetaminophen (Tylenol Tab) 650 mg Q4H PRN PO 06/04/17 20:15 07/04/17 20:14 06/05/17 06:02 650 MG Al Hydrox/Mg Hydrox/Simethicone (Maalox Max Susp) 15 ml Q4H PRN PO 06/04/17 20:15 07/04/17 20:14 Magnesium Hydroxide (Milk Of Magnesia Susp) 30 ml Q12H PRN PO 06/04/17 20:15 07/04/17 20:14 Ondansetron HCl (Zofran Inj) 4 mg Q6H PRN IV 06/04/17 20:15 07/04/17 20:14 Polyethylene (Miralax Powder Packet) 17 gm DAILY PRN PO 06/04/17 20:15 07/04/17 20:14 Piperacillin Sod/ Tazobactam Sod 4.5 gm/Sodium Chloride 120 ml @ 28.75 mls/ hr Q12H IV 06/05/17 06:00 06/12/17 05:59 06/05/17 05:58 28.75 MLS/HR Miscellaneous Information (Consult) 1 ea UD PRN N/A 06/04/17 20:15 07/04/17 20:14 Objective Vital Signs Date Time Temp Pulse Resp B/P (MAP) Pulse Ox O2 Delivery O2 Flow Rate FiO2 06/05/17 07:21 36.7 92 18 127/74 (91) 91 Room Air 06/05/17 04:53 36.4 81 18 116/74 (88) 92 Room Air 06/05/17 04:05 Room Air 06/05/17 00:05 Room Air 06/04/17 23:12 37.1 90 18 120/72 (88) 92 Room Air 06/04/17 21:23 37.0 89 18 127/80 (96) 94 Room Air 06/04/17 20:59 97 22 144/72 94 06/04/17 20:30 94 Room Air 06/04/17 20:09 97 22 144/72 94 Room Air 06/04/17 18:33 91 18 95 06/04/17 18:03 92 12 06/04/17 18:00 103 06/04/17 17:50 95 Room Air 06/04/17 17:15 36.7 99 22 90/61 95 Room Air Physical Exam Notes: General Appearance: Awake, alert & oriented, comfortable in general, ongoing dry cough, but appears in NAD. CV: +S1S2 RRR, no murmur. No peripheral edema. Pulm: Bilateral basilar crackles. Abdomen: +BS, soft, non-tender, non-distended. Extremities: No pedal edema or calf tenderness. Moving all extremities naturally and easily. Neuro: No gross neuro deficits. Lines: PIV. Laboratory Results 06/05/17 05:14 Red Blood Count 4.04, Mean Corpuscular Volume 79.5, Mean Corpuscular Hemoglobin 28.2, Mean Corpuscular Hemoglobin Concent 35.5, Mean Platelet Volume 10.5, Neutrophils (%) (Auto) 84.9, Lymphocytes (%) (Auto) 4.8, Monocytes (%) (Auto) 8.8, Eosinophils (%) (Auto) 0.8, Basophils (%) (Auto) 0.1, Neutrophils # (Auto) 10.76, Lymphocytes # (Auto) 0.61, Monocytes # (Auto) 1.11, Eosinophils # (Auto) 0.10, Basophils # (Auto) 0.01 06/05/17 05:14 Test 06/04/17 17:56 06/04/17 17:59 06/04/17 20:04 06/04/17 21:40 Influenza Type A Antigen Neg for Influ A (NEG) Influenza Type B Antigen Neg for Influ B (NEG) Prothrombin Time 9.7 SECONDS (9.0-12.0) Prothromb Time International Ratio 0.9 (0.9-1.1) Activated Partial Thromboplast Time 32.9 SECONDS (21.0-31.0) Partial Thromboplastin Ratio 1.3 Magnesium Level 2.2 mg/dl (1.8-2.4) Direct Bilirubin 1.8 mg/dl (0-0.2) Lipase 68 U/L (73-393) Thyroid Stimulating Hormone (TSH) 0.553 uIu/ml (0.300-4.500) Urine Color DK YELLOW Urine Appearance CLOUDY (CLEAR) Urine pH 5.0 (4.5-7.5) Urine Specific Odell 1.019 (1.000-1.030) Urine Protein 1+ (NEG) Urine Glucose (UA) NEG (NEG) Urine Ketones NEG (NEG) Urine Occult Blood 2+ (NEG) Urine Nitrite POS (NEG) Urine Bilirubin NEG (NEG) Urine Urobilinogen NEG (NEG) Urine Leukocyte Esterase TRACE (NEG) Urine WBC (Auto) 10-30 /hpf (0-5) Urine RBC (Auto) 10-30 /hpf (0-4) Urine Hyaline Casts (Auto) 5-10 /lpf (0-5) Urine Epithelial Cells (Auto) 20-30 /lpf (0-5) Urine Bacteria (Auto) 1+ (NEG) Urine Pathogenic Casts 5-10 GRANULAR CASTS /lpf (0) Lactic Acid Level 1.3 mmol/L (0.4-2.0) Hepatitis B Surface Antigen NEG (NEG) Hepatitis C Antibody Screen NEG (NEG) Hepatitis C Antibody NEG (NEG) Test 06/05/17 05:14 White Blood Count 12.66 K/uL (4.8-10.8) Red Blood Count 4.04 M/uL (4.7-6.1) Hemoglobin 11.4 g/dL (14.0-18.0) Hematocrit 32.1 % (42-52) Mean Corpuscular Volume 79.5 fL (80-100) Mean Corpuscular Hemoglobin 28.2 pg (25-34) Mean Corpuscular Hemoglobin Concent 35.5 g/dl (32-36) Platelet Count 166 K/uL (130-400) Mean Platelet Volume 10.5 fL (7.4-10.4) Neutrophils (%) (Auto) 84.9 % Lymphocytes (%) (Auto) 4.8 % Monocytes (%) (Auto) 8.8 % Eosinophils (%) (Auto) 0.8 % Basophils (%) (Auto) 0.1 % Neutrophils # (Auto) 10.76 K/uL (1.4-6.5) Lymphocytes # (Auto) 0.61 K/uL (1.2-3.4) Monocytes # (Auto) 1.11 K/uL (0.11-0.59) Eosinophils # (Auto) 0.10 K/uL (0-0.5) Basophils # (Auto) 0.01 K/uL (0-0.2) RDW Standard Deviation 39.1 fL (36.4-46.3) RDW Coefficient of Variation 13.5 % (11.5-14.5) Immature Granulocyte % (Auto) 0.6 % Immature Granulocyte # (Auto) 0.07 K/uL (0.00-0.02) Anion Gap 9.0 mmol/L (3-11) Est Creatinine Clear Calc Drug Dose 23.6 ml/min Estimated GFR () 18.7 Estimated GFR (Non- 16.1 BUN/Creatinine Ratio 22.0 (10-20) Calcium Level 8.2 mg/dl (8.5-10.1) Total Bilirubin 3.2 mg/dl (0.2-1) Aspartate Amino Transf (AST/SGOT) 39 U/L (15-37) Alanine Aminotransferase (ALT/SGPT) 30 U/L (12-78) Alkaline Phosphatase 111 U/L (45-117) Total Protein 6.8 gm/dl (6.4-8.2) Albumin 2.0 gm/dl (3.4-5.0) Globulin 4.8 gm/dl (2.5-4.0) Albumin/Globulin Ratio 0.4 (0.9-2) Assessment and Plan 62 yo male admitted on [id number] for PNA and acute kidney injury. PMH: DM2 on oral agents, HTN, gout, s/p appendectomy. Multifocal pneumonia: Per patient, diagnosed with PNA around 30Mar, started on clarithromycin. Ongoing cough and fatigue. Negative influenza here. CT chest concerning for multifocal pneumonia of possible chronic nature. Also noted cavitary lesion, possible septic embolus, as well as calcified pleural plaques. Afebrile here, but did get some tylenol. WBC 15 to 12 this am. Lactate 1.3. 05Apr given single-doses of ceftriaxone 2 grams and azithromycin 500 mg in ED. 06Apr started on zosyn 4.5 grams q12h. 05Apr BCx x 2 pending. - Suspect current infection is a CAP that did not fully respond (? resistant) to saul clarithromycin). Will switch coverage from zosyn back to ceftriaxone and azithromycin. - Will add albuterol mdi prn to help encourage some coughing. - Would benefit from follow-up CXR (or even bronchoscopy) in one month, sooner depending on how he continues to respond to the above. Acute kidney injury: Arrival Cr 5.29, down to 3.82 with hydration. No prior lab to compare to in [facility] system. Question of pre-renal on top of some post- renal (prostate) source. On IVF. Question of UTI: UA sample very dirty. 05Apr UCx no growth thus far. Prostatomegaly seen on CT a/p. Record notes difficulty giving urine sample in ED. Hyponatremia: Arrival Na 127, improved to 131 with IVF. Likely due to dehydration. Correcting. Hyperbilirubinemia & Elevated LFTs: AST mildly elevated, but total bili and direct bili also elevated. Lipase normal. Hepatic steatosis seen on CT chest. Gallstones seen on CT a/p. Hepatitis C negative. Hepatitis A and B testing pending. Patient is not symptomatic from a cholelithiasis perspective. May have Gilbert's syndrome vs fatty liver disease to account for lab findings. Indeterminate right renal lesion: Seen on CT a/p, possibly cyst as seen on prior [id number] u/s. Recommended PCM f/u for same. Prior medical issues: - HLD: Continue rosuvastatin. - Gout: Holding allopurinol due to LINDSEY. Code status: Full code. Diet: DM2, renal. DVT prophy: Heparin q8h. PT/OT: Deferred. Dispo: Admit to telemetry, will transfer today to med/surg. Resident Physician Supervision Note: I interviewed and examined the patient. Discussed with Dr. Christiansen and agree with findings and plan as documented in the note. Any exceptions or clarifications are listed here: None Documented By: Michael Huitron feeling better just a cough no significant sob no f/c/s lungs scattered rales no wheeze good air entry, nontoxic appearing. vitals stable pneumonia - multifocal and cavitary, but most likely is partially treated CAP that "smoldered" into current appearance vs less likely septic emboli (blood cultures pending) or pneumonia and malignancy (treat, repeat imaging and bronch if doesn't clear) -- abx. sepsis was present on admission w SIRS being white count and HR - improving. otherwise as above Resident Tracking Resident Involvement: Resident Care Provided Care Provided: Adult Hospital Medicine (inpatient)
[2017-06-05 11:00] VITALS: BP 116/71; PULSE 86; TEMP 36.7; O2SAT 92
[2017-06-05 15:10] VITALS: BP 112/64; PULSE 91; TEMP 37; O2SAT 94
[2017-06-05] MEDS ORDERED: NURSING DECISION MEDICATION ORDER SCH (16:00)
[2017-06-05] MEDS ORDERED: COUGH DROP (SUGAR FREE) LOZ 24 LOZ/1 BOX LOZ PRN (16:00)
[2017-06-05] MEDS: CEFTRIAXONE SOD INJ 1,000 MG in DEXTROSE 5% 50ML 50 ML IV SCH (19:04)
[2017-06-05 19:12] VITALS: BP 149/82; PULSE 91; TEMP 36.8; O2SAT 92
[2017-06-05] MEDS: AZITHROMYCIN IV 500 MG in DEXTROSE 5% 250ML 250 ML IV SCH (19:39)
[2017-06-05 23:36] VITALS: BP 127/69; PULSE 96; TEMP 36.7; O2SAT 92
[2017-06-06] MEDS: SODIUM CHLORIDE 0.9% 1000ML 1,000 ML IV SCH ×2 (05:23→13:40)
[2017-06-06] MEDS: HEPARIN SOD 5000 UNIT/0.5 ML CARP SQ SCH ×3 (05:23→21:09)
[2017-06-06 05:37] LABS: BASO % 0.1 %; BASO ABS # 0.01 K/uL (0-0.2); EOS % 0.6 %; EOS ABS # 0.08 K/uL (0-0.5); HEMATOCRIT 32.4 % (42-52); HEMOGLOBIN 11.6 g/dL (14.0-18.0); IG# 0.11 K/uL (0.00-0.02); LYMPH % 4.9 %; LYMPH ABS # 0.67 K/uL (1.2-3.4); MEAN CELL VOLUME 79.6 fL (80-100); MEAN CORPUSCULAR HEMOGLOBIN 28.5 pg (25-34); MEAN CORPUSCULAR HGB CONC 35.8 g/dl (32-36); MEAN PLATELET VOLUME 10.1 fL (7.4-10.4); MONO % 13.1 %; NEUT % 80.5 %; NEUT ABS # 11.12 K/uL (1.4-6.5); PLATELET COUNT 207 K/uL (130-400); RED CELL DISTRIBUTION WIDTH CV 14.1 % (11.5-14.5); RED CELL DISTRIBUTION WIDTH SD 40.4 fL (36.4-46.3); WHITE BLOOD COUNT 13.79 K/uL (4.8-10.8)
[2017-06-06 06:12] LABS: ALBUMIN 1.9 gm/dl (3.4-5.0); CREATININE 2.26 mg/dl (0.60-1.40); POTASSIUM 4.2 mmol/L (3.5-5.1); TOTAL PROTEIN 6.9 gm/dl (6.4-8.2)
[2017-06-06 07:21] VITALS: BP 153/80; PULSE 104; TEMP 37.3; O2SAT 92
[2017-06-06] MEDS: ALBUTEROL HFA 8 GM INHALER INH PRN (08:18)
[2017-06-06] MEDS: ACETAMINOPHEN 325 MG TAB PO PRN ×2 (08:18→13:43)
[2017-06-06] MEDS: AZITHROMYCIN IV 500 MG in DEXTROSE 5% 250ML 250 ML IV SCH (08:56)
[2017-06-06] MEDS ORDERED: BENZONATATE 100MG CAP PO PRN (09:00)
[2017-06-06 09:04] LABS: HEPATITIS A IGM TC 51813E NON-REACTIVE (NON-REACTIVE); HEPATITIS B CORE IGM TC51854R NON-REACTIVE (NON-REACTIVE)
--- NOTE | 2017-06-06 09:34 | Family Medicine Progress Note ---
Progress Note Date of Service Jun 06, 2017. Subjective Pt evaluation today including: conversation w/ patient This morning, found patient sitting by the side of the bed. Says his breathing overall has improved but he still has the annoying cough. Denies any present CP , SOB, or other acute concerns. This afternoon, again found patient sitting on side of the bed, stating that it is a bit painful to cough. Requested a back heating pad. Was asking again how long he thinks this cough will last. Otherwise no new acute concerns. Constitutional: No fever Respiratory: + cough, + shortness of breath Cardiovascular: No chest pain, No edema Abdomen: No pain, No nausea, No vomiting Additional Comments: General Appearance: Awake, alert & oriented, comfortable in general, ongoing dry cough, but appears in NAD. CV: +S1S2 RRR, no murmur. No peripheral edema. Pulm: Bilateral basilar crackles (a little improved from yesterday). Abdomen: +BS, soft, non-tender, non-distended. Extremities: No pedal edema or calf tenderness. Moving all extremities naturally and easily. Neuro: No gross neuro deficits. Lines: PIV. Medications Current Inpatient Medications Medications (Trade) Dose Ordered Sig/Camron Route Start Time Stop Time Status Last Admin Dose Admin Heparin Sodium (Porcine) (Heparin Sq 5000 Unit/0.5ml) 5,000 unit Q8 SQ 06/04/17 22:00 07/04/17 21:59 06/05/17 21:36 5,000 UNIT Sodium Chloride 1,000 ml @ 125 mls/hr Q8H IV 06/04/17 21:30 06/06/17 21:29 06/06/17 05:23 125 MLS/HR Acetaminophen (Tylenol Tab) 650 mg Q4H PRN PO 06/04/17 20:15 07/04/17 20:14 06/06/17 08:18 650 MG Al Hydrox/Mg Hydrox/Simethicone (Maalox Max Susp) 15 ml Q4H PRN PO 06/04/17 20:15 07/04/17 20:14 Magnesium Hydroxide (Milk Of Magnesia Susp) 30 ml Q12H PRN PO 06/04/17 20:15 07/04/17 20:14 Ondansetron HCl (Zofran Inj) 4 mg Q6H PRN IV 06/04/17 20:15 07/04/17 20:14 Polyethylene (Miralax Powder Packet) 17 gm DAILY PRN PO 06/04/17 20:15 07/04/17 20:14 Menthol (Nice Melida) 1 melida PRN PRN MELIDA 06/05/17 16:00 07/05/17 15:59 06/05/17 17:02 24 MELIDA Azithromycin 500 mg/Dextrose 255 ml @ 125 mls/hr DAILY IV 06/05/17 19:00 06/12/17 18:59 06/06/17 08:56 125 MLS/HR Ceftriaxone Sodium 1000 mg/ Dextrose 60 ml @ 100 mls/hr Q24H IV 06/05/17 19:00 06/12/17 18:59 06/05/17 19:04 100 MLS/HR Albuterol (Ventolin Hfa Inhaler) 2 puffs Q4H PRN INH 06/05/17 18:00 07/05/17 17:59 06/06/17 08:18 2 PUFFS Objective Vital Signs Date Time Temp Pulse Resp B/P (MAP) Pulse Ox O2 Delivery O2 Flow Rate FiO2 06/06/17 07:21 37.3 104 20 153/80 (104) 92 Room Air 06/06/17 00:00 Room Air 06/05/17 23:36 36.7 96 18 127/69 (88) 92 Room Air 06/05/17 19:12 36.8 91 18 149/82 (104) 92 Room Air 06/05/17 16:00 Room Air 06/05/17 15:10 37.0 91 18 112/64 (80) 94 Room Air 06/05/17 12:00 Room Air 06/05/17 11:00 36.7 86 18 116/71 (86) 92 Room Air Physical Exam Notes: General Appearance: Awake, alert & oriented, sitting on the side of the bed, ongoing dry cough, appears in NAD. CV: +S1S2 RRR, no murmur. No peripheral edema. Pulm: Bilateral basilar crackles, perhaps a little improved. Abdomen: +BS, soft, non-tender, non-distended. Extremities: No pedal edema or calf tenderness. Moving all extremities naturally and easily. Neuro: No gross neuro deficits. Lines: PIV. Laboratory Results 06/06/17 05:28 Red Blood Count 4.07, Mean Corpuscular Volume 79.6, Mean Corpuscular Hemoglobin 28.5, Mean Corpuscular Hemoglobin Concent 35.8, Mean Platelet Volume 10.1, Neutrophils (%) (Auto) 80.5, Lymphocytes (%) (Auto) 4.9, Monocytes (%) (Auto) 13.1, Eosinophils (%) (Auto) 0.6, Basophils (%) (Auto) 0.1, Neutrophils # (Auto ) 11.12, Lymphocytes # (Auto) 0.67, Monocytes # (Auto) 1.80, Eosinophils # (Auto ) 0.08, Basophils # (Auto) 0.01 06/06/17 05:28 Test 06/06/17 05:28 06/06/17 07:35 White Blood Count 13.79 K/uL (4.8-10.8) Red Blood Count 4.07 M/uL (4.7-6.1) Hemoglobin 11.6 g/dL (14.0-18.0) Hematocrit 32.4 % (42-52) Mean Corpuscular Volume 79.6 fL (80-100) Mean Corpuscular Hemoglobin 28.5 pg (25-34) Mean Corpuscular Hemoglobin Concent 35.8 g/dl (32-36) Platelet Count 207 K/uL (130-400) Mean Platelet Volume 10.1 fL (7.4-10.4) Neutrophils (%) (Auto) 80.5 % Lymphocytes (%) (Auto) 4.9 % Monocytes (%) (Auto) 13.1 % Eosinophils (%) (Auto) 0.6 % Basophils (%) (Auto) 0.1 % Neutrophils # (Auto) 11.12 K/uL (1.4-6.5) Lymphocytes # (Auto) 0.67 K/uL (1.2-3.4) Monocytes # (Auto) 1.80 K/uL (0.11-0.59) Eosinophils # (Auto) 0.08 K/uL (0-0.5) Basophils # (Auto) 0.01 K/uL (0-0.2) RDW Standard Deviation 40.4 fL (36.4-46.3) RDW Coefficient of Variation 14.1 % (11.5-14.5) Immature Granulocyte % (Auto) 0.8 % Immature Granulocyte # (Auto) 0.11 K/uL (0.00-0.02) Anion Gap 4.0 mmol/L (3-11) Est Creatinine Clear Calc Drug Dose 39.7 ml/min Estimated GFR () 35.2 Estimated GFR (Non- 30.4 BUN/Creatinine Ratio 24.4 (10-20) Calcium Level 8.0 mg/dl (8.5-10.1) Total Bilirubin 5.0 mg/dl (0.2-1) Aspartate Amino Transf (AST/SGOT) 52 U/L (15-37) Alanine Aminotransferase (ALT/SGPT) 36 U/L (12-78) Alkaline Phosphatase 167 U/L (45-117) Total Protein 6.9 gm/dl (6.4-8.2) Albumin 1.9 gm/dl (3.4-5.0) Globulin 5.0 gm/dl (2.5-4.0) Albumin/Globulin Ratio 0.4 (0.9-2) Bedside Glucose 147 mg/dl (70-99) Assessment and Plan 62 yo male admitted on [id number] for PNA and acute kidney injury. PMH: DM2 on oral agents, HTN, gout, s/p appendectomy. Multifocal pneumonia: Per patient, diagnosed with PNA around 30Mar, started on clarithromycin. Ongoing cough and fatigue. CT chest concerning for multifocal pneumonia of possible chronic nature. Also noted cavitary lesion, possible septic embolus, as well as calcified pleural plaques. WBC stable around 13. 05Apr given single-doses of ceftriaxone 2 grams and azithromycin 500 mg in ED. 06Apr started on zosyn 4.5 grams q12h. 05Apr BCx x 2 with no growth to date. Suspect current infection is a CAP that did not fully respond (? resistant) to the clarithromycin). 06Apr switched back to ceftriaxone and azithromycin. Added albuterol mdi prn to help encourage some coughing. - Would benefit from follow-up CXR vs CT chest (or even bronchoscopy) in one month, sooner depending on how he continues to respond to the above. Acute kidney injury: Arrival Cr 5.29, down to 2.2 with hydration. No prior lab to compare to in [facility] system. Question of pre-renal on top of some post-renal ( prostate) source. On IVF. Question of UTI: UA sample very dirty. 05Apr UCx no growth (final). Prostatomegaly seen on CT a/p. Record notes difficulty giving urine sample in ED. Hyponatremia: Arrival Na 127, improved to 135 with IVF. Likely due to dehydration. Hyperbilirubinemia & Elevated LFTs: AST mildly elevated, but total bili and direct bili also elevated. Lipase normal. Hepatic steatosis seen on CT chest. Gallstones seen on CT a/p. Hepatitis C negative. Hepatitis A and B testing pending. Patient is not symptomatic from a cholelithiasis perspective. May have Gilbert's syndrome vs fatty liver disease to account for lab findings. - However, T bili lyla to 5 since yesterday, so will get RUQ u/s for further evaluation. Indeterminate right renal lesion: Seen on CT a/p, possibly cyst as seen on prior [id number] u/s. Recommended PCM f/u for same. Prior medical issues: - HLD: Continue rosuvastatin. - Gout: Holding allopurinol due to LINDSEY. Code status: Full code. Diet: DM2, renal. DVT prophy: Heparin q8h. PT/OT: Deferred. Dispo: Admit on med/surg. Ideally would like to see if Cr normalizes before discharge from hospital. Resident Physician Supervision Note: I interviewed and examined the patient. Discussed with Dr. Christiansen and agree with findings and plan as documented in the note. Any exceptions or clarifications are listed here: None Documented By: Michael Huitron feeling better just a cough no significant sob no f/c/s lungs scattered rales no wheeze good air entry, nontoxic appearing. vitals stable pneumonia - multifocal and cavitary, but most likely is partially treated CAP that "smoldered" into current appearance vs less likely septic emboli (blood cultures negative to date) or pneumonia and malignancy (treat, repeat imaging and bronch if doesn't clear) -- abx. sepsis was present on admission w SIRS being white count and HR - improving. continue current care ARF - due to above, improving with fluids, continue fluids otherwise as above Resident Tracking Resident Involvement: Resident Care Provided Care Provided: Adult Hospital Medicine (inpatient)
[2017-06-06 15:11] VITALS: BP 147/76; PULSE 64; TEMP 36.8; O2SAT 93
[2017-06-06] MEDS: CEFTRIAXONE SOD INJ 1,000 MG in DEXTROSE 5% 50ML 50 ML IV SCH (18:20)
[2017-06-06 20:04] VITALS: BP 158/74; PULSE 93; TEMP 36.8; O2SAT 94
[2017-06-06] MEDS: GUAIFENESIN/CODEINE 100MG/10MG 5ML UDC PO SCH ×2 (21:11→21:13)
--- NOTE | 2017-06-06 21:35 | EMERGENCY ROOM VISIT NOTE ---
History Report prepared by Tim: Jan Hanson Under the Supervision of: Dr. Akbar Pavon M.D. First contact with patient: 17:25 Chief Complaint: DIZZY Stated Complaint: RESPIRATORY ISSUES, LIGHT HEADED, NOT EATING History of Present Illness The patient is a 62 year old white male with a past medical history of diabetes , hypertension, gout, and appendectomy who presents to the Emergency Room with complaints of constant fatigue and shortness of breath that he has been experiencing for the past 3 days. The patient complains of multiple symptoms including dizziness, a dry cough, and lack of appetite. The patient was diagnosed with Pneumonia recently and prescribed Clarithromycin. He denies any recent long travel, sick contacts, or tick bites. Source of History: patient Onset: 3 days Position: chest Quality: other (Shortness of breath) Timing: constant Associated Symptoms: + cough, + fatigue Note: Pt complains of dizziness Review of Systems See HPI for pertinent positives and negatives. A total of ten systems were reviewed and were otherwise negative. Past Medical & Surgical Medical Problems: (1) LINDSEY (acute kidney injury) (2) Hyperbilirubinemia (3) Pneumonia Hx of Diabetes, Hypertension Family History Cancer Diabetes mellitus Heart disease Hypertension Kidney disease Kidney stones Social History Smoking Status: Never Smoker Alcohol Use: none Drug Use: none Marital Status: single Occupation Status: employed Current/Historical Medications Scheduled Allopurinol (Zyloprim), 100 MG PO DAILY Clarithromycin (Clarithromycin), 500 MG PO Q12 Ferrous Sulfate (Ferrous Sulfate), 325 MG PO BID Glimepiride (Glimepiride), 2 MG PO DAILY Lisinopril (Lisinopril), 5 MG PO DAILY Rosuvastatin Calcium (Rosuvastatin Calcium), 10 MG PO HS Scheduled PRN Hydrocodone W/ Homatropine (Hycodan 5/1.5MG 5 Ml), 5 ML PO Q4-6HRS PRN for Cough Naproxen Sodium (Aleve), 220 MG PO UD PRN for Pain Allergies Coded Allergies: No Known Allergies (Unverified , 06/04/17) Physical Exam Vital Signs Date Time Temp Pulse Resp B/P (MAP) Pulse Ox O2 Delivery O2 Flow Rate FiO2 06/04/17 20:09 97 22 144/72 94 Room Air 06/04/17 18:33 91 18 95 06/04/17 18:03 92 12 06/04/17 18:00 103 06/04/17 17:50 95 Room Air 06/04/17 17:15 36.7 99 22 90/61 95 Room Air Physical Exam GENERAL: Awake, alert, mildly ill-appearing, NAD HENT: Normocephalic, atraumatic. EYES: Normal conjunctiva. Sclera non-icteric. NECK: Supple. No nuchal rigidity. FROM. RESPIRATORY: Bibasilar crackles present. Rhonchi throughout, but worst in the right chest. CARDIAC: RRR, no MRG ABDOMEN: Soft, NTND, BS+ MSK: No chest wall TTP, no LE edema NEURO: GCS 15, CN 2-12 intact, moves all 4s on command SKIN: No rash or jaundice noted. Medical Decision & Procedures ER Provider Diagnostic Interpretation: Radiology results as stated below per my review and radiologist interpretation: CHEST ONE VIEW PORTABLE CLINICAL HISTORY: 62 years-old Male presenting with coarse breath sounds. TECHNIQUE: Portable upright AP view of the chest was obtained. COMPARISON: None. FINDINGS: Atherosclerosis of aortic arch. Cardiac silhouette enlarged. Mild prominence of pulmonary vasculature. Minimal hazy opacity at the right lung base. Small right pleural effusion. No large pneumothorax Osseous structures normal. IMPRESSION: 1. Right basilar infiltrate concerning for pneumonia. 2. Associated small right pleural effusion, possibly parapneumonic effusion. 3. Cardiomegaly with mild volume overload. No parker pulmonary edema. Electronically signed by: Telly Sol M.D. 06/04/2017 6:23 PM Dictated Date/Time: 06/04/2017 6:20 PM Laboratory Results Test 06/04/17 17:56 06/04/17 17:59 06/04/17 20:04 Influenza Type A Antigen Neg for Influ A (NEG) Influenza Type B Antigen Neg for Influ B (NEG) Prothrombin Time 9.7 SECONDS (9.0-12.0) Prothromb Time International Ratio 0.9 (0.9-1.1) Activated Partial Thromboplast Time 32.9 SECONDS (21.0-31.0) Partial Thromboplastin Ratio 1.3 Magnesium Level 2.2 mg/dl (1.8-2.4) Lipase 68 U/L (73-393) Thyroid Stimulating Hormone (TSH) 0.553 uIu/ml (0.300-4.500) Urine Color DK YELLOW Urine Appearance CLOUDY (CLEAR) Urine pH 5.0 (4.5-7.5) Urine Specific [place] 1.019 (1.000-1.030) Urine Protein 1+ (NEG) Urine Glucose (UA) NEG (NEG) Urine Ketones NEG (NEG) Urine Occult Blood 2+ (NEG) Urine Nitrite POS (NEG) Urine Bilirubin NEG (NEG) Urine Urobilinogen NEG (NEG) Urine Leukocyte Esterase TRACE (NEG) Urine WBC (Auto) 10-30 /hpf (0-5) Urine RBC (Auto) 10-30 /hpf (0-4) Urine Hyaline Casts (Auto) 5-10 /lpf (0-5) Urine Epithelial Cells (Auto) 20-30 /lpf (0-5) Urine Bacteria (Auto) 1+ (NEG) Urine Pathogenic Casts 5-10 GRANULAR CASTS /lpf (0) Date/Time Source Procedure Growth Status 06/04/17 20:04 Urine , Clean Catch Urine Culture - Final THREE TYPES OF ORGANISMS PRESENT, ALL... Complete Laboratory results reviewed by me Medications Administered Medications (Trade) Dose Ordered Sig/Camron Route Start Time Stop Time Status Last Admin Dose Admin Sodium Chloride 1,000 ml @ 999 mls/hr Q1H1M STAT IV 06/04/17 17:39 06/04/17 18:39 DC 06/04/17 18:11 999 MLS/HR Ondansetron HCl (Zofran Inj) 4 mg NOW STAT IV 06/04/17 17:39 06/04/17 17:40 DC 06/04/17 18:11 4 MG Ceftriaxone Sodium (Rocephin Inj) 2 gm NOW STAT IV 06/04/17 19:12 06/04/17 19:16 DC 06/04/17 19:34 2 GM Sodium Chloride 1,000 ml @ 999 mls/hr Q1H1M STAT IV 06/04/17 19:12 06/04/17 20:12 DC 06/04/17 19:33 999 MLS/HR Acetaminophen (Tylenol Tab) 650 mg Q4H PRN PO 06/04/17 20:15 07/04/17 20:14 06/06/17 13:43 650 MG ECG Per My Interpretation Indication: other (Dizziness) Rate (beats per minute): 92 Rhythm: normal sinus Findings: other (Normal intervals, normal axis, no STS chagnes or TWI) ED Course 1731: The patient was evaluated in room B8. A complete history and physical exam was performed. 1738: Ordered Zofran 4 mg IV, Sodium Chloride 1000 mL @ 999 mL/hr IV. 1911: Ordered Sodium Chloride 1000 mL @ 999 mL/hr IV, Rocephin 2 gm . 1914: Ordered Azithromycin 255 mL @ 125 mL/hr IV. 1940: I discussed the case with Dr. Ivan Low [facility] [place] Resident Hospitalist. He will evaluate the patient for further treatment. Medical Decision The patient is a 62 year old white male with a past medical history of diabetes , hypertension, gout, and appendectomy who presents to the Emergency Room with complaints of constant fatigue that he has been experiencing for the past 3 days. Nursing notes reviewed. Ancillary studies and prior records reviewed. Differential diagnosis: Etiologies such as infections, reactive airway disease, pneumonia, pneumothorax , COPD, CHF, cardiac ischemia, pulmonary embolism, musculoskeletal, gastrointestinal, as well as others were entertained. Patient was seen and evaluated at bedside. Patient states not feeling well, fatigued, lightheaded. Recently seen for PNA and trx'ed w/ clarithromycin. Patient does have coarse breath sounds on exam. Blood work, EKG, trop, CXR, IVF completed. CXR concerning for PNA. Patient given Rocephin/azithro and was appropriate per pharmacy in light of ARF. K WNL. Creat of 5. WBC 15. Sepsis w/ PNA as source. After speaking w/ hospitalist, pseudamonal coverage added. Flu neg. Mild hyperbili. Pending UA. CT A/P added by hospitalist. Admitted for further eval and trx. Medication Reconcilliation Current Medication List: was personally reviewed by me Blood Pressure Screening Patient's blood pressure: Low blood pressure Referred to hospitalist. Consults Time Called: 1940 Consulting Physician: Dr. Ivan Low [facility] [place] Resident Hospitalist Returned Call: 1940 I discussed the [facility] He will evaluate the patient for further treatment. Impression Primary Impression: Pneumonia Additional Impressions: Acute renal failure Anemia Hyperbilirubinemia Scribe Attestation The scribe's documentation has been prepared under my direction and personally reviewed by me in its entirety. I confirm that the note above accurately reflects all work, treatment, procedures, and medical decision making performed by me. Departure Information Dispostion Being Evaluated By Hospitalist Referrals Jagdeep Turk M.D. (PCP) Patient Instructions My [facility] Problem Qualifiers Primary Impression: Pneumonia Pneumonia type: due to unspecified organism Laterality: right Lung location : lower lobe of lung Qualified Codes: J18.1 - Lobar pneumonia, unspecified organism Additional Impressions: Acute renal failure Acute renal failure type: unspecified Qualified Codes: N17.9 - Acute kidney failure, unspecified Anemia Anemia type: unspecified type Qualified Codes: D64.9 - Anemia, unspecified
[2017-06-07 00:20] VITALS: BP 154/77; PULSE 98; TEMP 37.5; O2SAT 91
[2017-06-07 06:00] LABS: HEMATOCRIT 31.9 % (42-52); HEMOGLOBIN 11.1 g/dL (14.0-18.0); MEAN CORPUSCULAR HEMOGLOBIN 28.2 pg (25-34); MEAN CORPUSCULAR HGB CONC 34.8 g/dl (32-36); MEAN PLATELET VOLUME 10.6 fL (7.4-10.4); PLATELET COUNT 242 K/uL (130-400); RED CELL DISTRIBUTION WIDTH CV 14.3 % (11.5-14.5); RED CELL DISTRIBUTION WIDTH SD 42.4 fL (36.4-46.3); WHITE BLOOD COUNT 12.66 K/uL (4.8-10.8)
[2017-06-07] MEDS: HEPARIN SOD 5000 UNIT/0.5 ML CARP SQ SCH ×3 (06:25→21:23)
[2017-06-07 06:40] LABS: ALBUMIN 1.7 gm/dl (3.4-5.0); CALCIUM 7.8 mg/dl (8.5-10.1); CREATININE 1.64 mg/dl (0.60-1.40); POTASSIUM 3.6 mmol/L (3.5-5.1)
[2017-06-07 06:43] LABS: TOTAL PROTEIN 6.6 gm/dl (6.4-8.2)
[2017-06-07 07:10] LABS: BASO % 0.1 %; BASO ABS # 0.01 K/uL (0-0.2); EOS % 0.6 %; EOS ABS # 0.07 K/uL (0-0.5); IG# 0.22 K/uL (0.00-0.02); LYMPH % 5.5 %; LYMPH ABS # 0.69 K/uL (1.2-3.4); MONO % 13.4 %; NEUT % 78.7 %; NEUT ABS # 9.97 K/uL (1.4-6.5)
[2017-06-07 07:14] VITALS: BP 147/78; PULSE 99; TEMP 37.2; O2SAT 91
[2017-06-07] MEDS: AZITHROMYCIN IV 500 MG in DEXTROSE 5% 250ML 250 ML IV SCH (08:51)
--- NOTE | 2017-06-07 08:57 | DIAGNOSTIC IMAGING REPORT ---
BILIARY ULTRASOUND CLINICAL HISTORY: Elevated bilirubin COMPARISON STUDY: CT scan of the abdomen and pelvis dated 4 x 18 FINDINGS: No focal hepatic masses were visualized. There is no ductal dilatation. The common bile duct measures 3 mm. There is no right-sided hydronephrosis. Several gallstones were visualized. Only a small portion of the pancreas was visualized. No abnormalities were delineated. IMPRESSION: 1. Cholelithiasis 2. No ductal dilatation. Electronically signed by: Trino Benz M.D. 06/07/2017 8:56 AM Dictated Date/Time: 06/07/2017 8:54 AM
--- NOTE | 2017-06-07 09:13 | Family Medicine Progress Note ---
Progress Note Date of Service Jun 07, 2017. Subjective Pt evaluation today including: conversation w/ patient Found patient sitting in the bedside chair. Says he has his ongoing cough, perhaps slightly more productive, and that his entire lower chest and abdomen hurt if he has strong coughing spells. Otherwise he denies any focal CP, any SOB, or any focal abdominal pain. Beyond the cough, and perhaps some mild low back pain, he denies any other acute concerns. Constitutional: No fever, No chills Respiratory: + cough Cardiovascular: No chest pain, No edema Abdomen: No pain, No nausea, No vomiting Medications Current Inpatient Medications Medications (Trade) Dose Ordered Sig/Camron Route Start Time Stop Time Status Last Admin Dose Admin Heparin Sodium (Porcine) (Heparin Sq 5000 Unit/0.5ml) 5,000 unit Q8 SQ 06/04/17 22:00 07/04/17 21:59 06/07/17 06:25 5,000 UNIT Acetaminophen (Tylenol Tab) 650 mg Q4H PRN PO 06/04/17 20:15 07/04/17 20:14 06/06/17 13:43 650 MG Al Hydrox/Mg Hydrox/Simethicone (Maalox Max Susp) 15 ml Q4H PRN PO 06/04/17 20:15 07/04/17 20:14 Magnesium Hydroxide (Milk Of Magnesia Susp) 30 ml Q12H PRN PO 06/04/17 20:15 07/04/17 20:14 Ondansetron HCl (Zofran Inj) 4 mg Q6H PRN IV 06/04/17 20:15 07/04/17 20:14 Polyethylene (Miralax Powder Packet) 17 gm DAILY PRN PO 06/04/17 20:15 07/04/17 20:14 Menthol (Nice Melida) 1 melida PRN PRN MELIDA 06/05/17 16:00 07/05/17 15:59 06/05/17 17:02 24 MELIDA Azithromycin 500 mg/Dextrose 255 ml @ 125 mls/hr DAILY IV 06/05/17 19:00 06/12/17 18:59 06/07/17 08:51 125 MLS/HR Ceftriaxone Sodium 1000 mg/ Dextrose 60 ml @ 100 mls/hr Q24H IV 06/05/17 19:00 4/13/18 18:59 06/06/17 18:20 100 MLS/HR Albuterol (Ventolin Hfa Inhaler) 2 puffs Q4H PRN INH 06/05/17 18:00 07/05/17 17:59 06/06/17 08:18 2 PUFFS Codeine Phosphate/ Guaifenesin (Robitussin-AC Sugar Free Syrup) 10 ml HS PO 06/06/17 21:00 07/06/17 20:59 06/06/17 21:13 5 ML Objective Vital Signs Date Time Temp Pulse Resp B/P (MAP) Pulse Ox O2 Delivery O2 Flow Rate FiO2 06/07/17 08:00 Room Air 06/07/17 07:14 37.2 99 18 147/78 (101) 91 06/07/17 00:29 Room Air 06/07/17 00:20 37.5 98 18 154/77 (102) 91 Room Air 06/06/17 20:30 Room Air 06/06/17 20:04 36.8 93 18 158/74 (102) 94 Room Air 06/06/17 16:00 Room Air 06/06/17 15:11 36.8 64 16 147/76 (99) 93 Physical Exam Notes: General Appearance: Awake, alert & oriented, ongoing dry cough, now appears jaundiced, but is in NAD. CV: +S1S2 borderline but regular tachycardia, no murmur. No peripheral edema. Pulm: Bilateral basilar crackles, perhaps a little improved. Abdomen: +BS, soft, non-tender including in RUQ, non-distended. Extremities: Slight pedal edema but no calf tenderness. Moving all extremities naturally and easily. Neuro: No gross neuro deficits. Lines: PIV. Laboratory Results 06/07/17 05:21 Red Blood Count 3.94, Mean Corpuscular Volume 81.0, Mean Corpuscular Hemoglobin 28.2, Mean Corpuscular Hemoglobin Concent 34.8, Mean Platelet Volume 10.6, Neutrophils (%) (Auto) 78.7, Lymphocytes (%) (Auto) 5.5, Monocytes (%) (Auto) 13.4, Eosinophils (%) (Auto) 0.6, Basophils (%) (Auto) 0.1, Neutrophils # (Auto ) 9.97, Lymphocytes # (Auto) 0.69, Monocytes # (Auto) 1.70, Eosinophils # (Auto ) 0.07, Basophils # (Auto) 0.01 06/07/17 05:21 Test 06/06/17 17:52 06/07/17 05:21 Direct Bilirubin 4.3 mg/dl (0-0.2) White Blood Count 12.66 K/uL (4.8-10.8) Red Blood Count 3.94 M/uL (4.7-6.1) Hemoglobin 11.1 g/dL (14.0-18.0) Hematocrit 31.9 % (42-52) Mean Corpuscular Volume 81.0 fL (80-100) Mean Corpuscular Hemoglobin 28.2 pg (25-34) Mean Corpuscular Hemoglobin Concent 34.8 g/dl (32-36) Platelet Count 242 K/uL (130-400) Mean Platelet Volume 10.6 fL (7.4-10.4) Neutrophils (%) (Auto) 78.7 % Lymphocytes (%) (Auto) 5.5 % Monocytes (%) (Auto) 13.4 % Eosinophils (%) (Auto) 0.6 % Basophils (%) (Auto) 0.1 % Neutrophils # (Auto) 9.97 K/uL (1.4-6.5) Lymphocytes # (Auto) 0.69 K/uL (1.2-3.4) Monocytes # (Auto) 1.70 K/uL (0.11-0.59) Eosinophils # (Auto) 0.07 K/uL (0-0.5) Basophils # (Auto) 0.01 K/uL (0-0.2) RDW Standard Deviation 42.4 fL (36.4-46.3) RDW Coefficient of Variation 14.3 % (11.5-14.5) Immature Granulocyte % (Auto) 1.7 % Immature Granulocyte # (Auto) 0.22 K/uL (0.00-0.02) Red Blood Cell Morphology Unremarkable Anion Gap 9.0 mmol/L (3-11) Est Creatinine Clear Calc Drug Dose 54.7 ml/min Estimated GFR () 51.9 Estimated GFR (Non- 44.8 BUN/Creatinine Ratio 23.0 (10-20) Calcium Level 7.8 mg/dl (8.5-10.1) Total Bilirubin 5.9 mg/dl (0.2-1) Aspartate Amino Transf (AST/SGOT) 46 U/L (15-37) Alanine Aminotransferase (ALT/SGPT) 37 U/L (12-78) Alkaline Phosphatase 217 U/L (45-117) Total Protein 6.6 gm/dl (6.4-8.2) Albumin 1.7 gm/dl (3.4-5.0) Globulin 4.9 gm/dl (2.5-4.0) Albumin/Globulin Ratio 0.3 (0.9-2) Assessment and Plan 62 yo male admitted on [id number] for PNA and acute kidney injury. PMH: DM2 on oral agents, HTN, gout, s/p appendectomy. Multifocal pneumonia: Per patient, diagnosed with PNA around 30Mar, started on clarithromycin. Ongoing cough and fatigue. Met sepsis criteria on admission. CT chest concerning for multifocal pneumonia of possible chronic nature. Also noted cavitary lesion, possible septic embolus, as well as calcified pleural plaques. WBC stable around 13. 05Apr given single-doses of ceftriaxone 2 grams and azithromycin 500 mg in ED. 06Apr started on zosyn 4.5 grams q12h. 05Apr BCx x 2 with no growth to date. Suspect current infection is a CAP that did not fully respond (? resistant) to the clarithromycin. 06Apr switched back to ceftriaxone and azithromycin. Added albuterol mdi prn to help encourage some coughing. - Would benefit from follow-up CXR vs CT chest (or even bronchoscopy) in one month, sooner depending on how he continues to respond to the above. Acute kidney injury: Arrival Cr 5.29, down to 1.6 with hydration. Believe his baseline Cr is around 1.3-1.7. Question of pre-renal source on top of some post -renal (prostate) source. On IVF. Question of UTI: UA sample very dirty. 05Apr UCx no growth (final). Prostatomegaly seen on CT a/p. Record notes difficulty giving urine sample in ED. Hyponatremia: Arrival Na 127, improved to 137 with IVF. Likely due to dehydration. Hyperbilirubinemia & Elevated LFTs: AST mildly elevated, but total bili and direct bili also elevated. Lipase normal. Hepatic steatosis seen on CT chest. Gallstones seen on CT a/p. Hepatitis A, B, C negative. Potential sources include elevation from his zosyn, Gilbert's syndrome, or fatty liver disease. However, both total and direct bili continue to rise. 08Apr RUQ u/s showed gallstones without evidence of obstruction. Patient now appears a bit jaundiced but still abdominally asymptomatic. - Discussed the above with patient. Will check labs in the AM. If still rising , would recommend getting GI consult. If improving, may just continue to monitor symptomatically. Indeterminate right renal lesion: Seen on CT a/p, possibly cyst as seen on prior [id number] u/s. Recommended PCM f/u for same. Prior medical issues: - HLD: Continue rosuvastatin. - Gout: Holding allopurinol due to LINDSEY. Code status: Full code. Diet: DM2, renal. DVT prophy: Heparin q8h. PT/OT: Deferred. Dispo: Admit on med/surg. Ideally would like to see if Cr normalizes before discharge from hospital. Resident Physician Supervision Note: I interviewed and examined the patient. Discussed with Dr. Christiansen and agree with findings and plan as documented in the note. Any exceptions or clarifications are listed here: None Documented By: Michael Huitron feeling better overall family present, updated extensively no significant sob no f/c/s lungs scattered rales no wheeze good air entry, nontoxic appearing. vitals stable, jaundiced pneumonia - multifocal and cavitary, but most likely is partially treated CAP that "smoldered" into current appearance vs less likely septic emboli (blood cultures negative to date) or pneumonia and malignancy (treat, repeat imaging and bronch if doesn't clear) -- abx. sepsis was present on admission w SIRS being white count and HR - improving. continue current care, likely home once bili issue settled ARF - due to above, back to baseline jaundice - ?cholestasis from zosyn? no sx, no signs of hepatitis or biliary obstruction. follow - if doesn't crest and trend down by tomorrow will need to consult GI otherwise otherwise as above Resident Tracking Resident Involvement: Resident Care Provided Care Provided: Adult Hospital Medicine (inpatient)
[2017-06-07 16:04] VITALS: BP 115/72; PULSE 95; TEMP 36.8; O2SAT 95
[2017-06-07] MEDS: CEFTRIAXONE SOD INJ 1,000 MG in DEXTROSE 5% 50ML 50 ML IV SCH (18:32)
[2017-06-07] MEDS: GUAIFENESIN/CODEINE 100MG/10MG 5ML UDC PO SCH (21:20)
[2017-06-08 00:17] VITALS: BP 123/72; PULSE 89; TEMP 37; O2SAT 91
[2017-06-08] MEDS: ACETAMINOPHEN 325 MG TAB PO PRN (01:23)
[2017-06-08 04:56] LABS: BASO % 0.2 %; BASO ABS # 0.02 K/uL (0-0.2); EOS ABS # 0.11 K/uL (0-0.5); HEMATOCRIT 29.6 % (42-52); HEMOGLOBIN 10.2 g/dL (14.0-18.0); IG# 0.31 K/uL (0.00-0.02); LYMPH % 9.2 %; LYMPH ABS # 1.06 K/uL (1.2-3.4); MEAN CELL VOLUME 81.8 fL (80-100); MEAN CORPUSCULAR HEMOGLOBIN 28.2 pg (25-34); MEAN CORPUSCULAR HGB CONC 34.5 g/dl (32-36); MEAN PLATELET VOLUME 10.1 fL (7.4-10.4); MONO % 10.4 %; NEUT % 76.5 %; NEUT ABS # 8.86 K/uL (1.4-6.5); PLATELET COUNT 247 K/uL (130-400); RED CELL DISTRIBUTION WIDTH CV 14.3 % (11.5-14.5); RED CELL DISTRIBUTION WIDTH SD 43.1 fL (36.4-46.3); WHITE BLOOD COUNT 11.56 K/uL (4.8-10.8)
[2017-06-08 05:38] LABS: ALBUMIN 1.6 gm/dl (3.4-5.0); CALCIUM 8.1 mg/dl (8.5-10.1); CREATININE 1.61 mg/dl (0.60-1.40); POTASSIUM 3.8 mmol/L (3.5-5.1); TOTAL PROTEIN 6.5 gm/dl (6.4-8.2)
[2017-06-08] MEDS: HEPARIN SOD 5000 UNIT/0.5 ML CARP SQ SCH ×3 (06:03→21:26)
[2017-06-08 07:25] VITALS: BP 126/80; PULSE 85; TEMP 36.9; O2SAT 93
[2017-06-08] MEDS: AZITHROMYCIN IV 500 MG in DEXTROSE 5% 250ML 250 ML IV SCH (08:36)
--- NOTE | 2017-06-08 13:57 | Pulmonary Consultation ---
History General Date of Service: Jun 08, 2017. Stated Complaint: Lamont, Hyperbilirubinemia, Pneumonia HPI The patient is a 62 year old male who presents to [facility] with complaints of Lamont, Hyperbilirubinemia, Pneumonia. The patient's primary care provider is Jagdeep Turk M.D.. 62y/o male admitted 06/04/2017 for pneumonia with failure to respond to outpatient treatment. PmHx: DM2, GOUT, HTN, anemia, protuneria, BPH, CKD and Dyslipidemia. He was seen by his PCP and treated with clarithromycin 50mmg BID for diagnosed with LLL pna. The patient had progression of his fatigue, poor oral intake and possible change in baseline metal status (per family).He also noted coughing with associated vomiting x1 and recent contact with influenza B positive family members. During my exam today the patient notes no dyspnea at rest but notable dyspnea on exertion. He has had increasing dyspnea associated with intermittent coughing and fatigue for the past 3 weeks. Prior to this he notes he was within normal limits. He also admits to being mildly confused but currently denies: Fever, chills, productive cough, hemoptysis, unintentional weight loss, B type symptoms, pleurisy or classic cardiac chest pain. Inpatient Work-Up WBC: 15K---12K PLT: 170K--247K H/H: 12/29 Na: 980863 Cr: 5.291.61 BUN: 9036 T Bili: 2.75.0 D Bili: 1.85.1 Previous Work-UP SED Rate (09/11/2016): >31 24 Hours Urine Pro (05/09/2016): 2312mg/day Serum Ymte-2-Erxmvooj (05/07/2016): >0.6G/DL CRP (04/30/2016) >1.01 Active Problems 1. Acute appendicitis 2. Anemia ( 3. BPH (benign prostatic hyperplasia) 4. Carbuncle 5. Carpal tunnel syndrome 6. Cataract of both eyes 7. Cellulitis of finger 8. Cellulitis of hand 9. Chronic kidney disease, stage II (mild) 10. Diabetes mellitus with renal manifestations, uncontrolled 11. Dyslipidemia 12. Elevated erythrocyte sedimentation rate and abnormality of plasma viscosity 13. Elevated serum globulin level 14. Erectile dysfunction 15. Gout 16. Hypertension 17. Joint pain, knee 18. Proteinuria 19. Vitamin D deficiency Surgical History 1. Appendectomy 2. Incision And Drainage Of Skin Abscess, Complicated Family History 1. Family history of malignant neoplasm (Z80.9) 2. Family history of Family Health Status Of Mother - 3. Denied: Family history of colon cancer (Z80.0) 4. Denied: Family history of colonic polyps 5. Denied: Family history of prostate cancer Social History Denied: History of Alcohol Use (History) Caffeine use (F15.90) Denied: History of Chews tobacco Denied: History of Drug Use Marital History - Single Never smoker Occupation: Single Current Meds 1. Ferrous Sulfate 325 (65 Fe) MG Oral Tablet; TAKE 1 TABLET TWICE DAILY; 2. Glimepiride 2 MG Oral Tablet; Take 1 tablet daily; 3. Rosuvastatin Calcium 10 MG Oral Tablet; TAKE 1 TABLET Bedtime 4. Allopurinol 100 MG Oral Tablet; TAKE 1 TABLET DAILY 5. MethylPREDNISolone 4 MG Oral Tablet Therapy Pack; USE DIRECTED; 6. Lisinopril 5 MG Oral Tablet; Take 1 tablet daily; 7. Vitamin D (Ergocalciferol) 27579 UNIT Oral Capsule; TAKE 1 CAPSULE WEEKLY; Allergies 1. Lipitor TABS 2. Zocor TABS Historian: patient, EMS Review of Systems Constitutional: reports: malaise Eyes: reports: no symptoms ENT: reports: no symptoms Cardiovascular: reports: no symptoms Respiratory: reports: as stated in HPI Gastrointestinal: reports: other (Bloating) Genitourinary - Male: reports: no symptoms Musculoskeletal: reports: myalgias Integumentary: reports: no symptoms Neurologic: reports: as stated in HPI Psychiatric: reports: no symptoms Endocrine: no symptoms Hematologic / Lymphatic: no symptoms Allergic / Immunologic: no symptoms Past Medical History Past Medical History: Please refer to HPI Past Surgical History: Please refer to HPI Family History Cancer Diabetes mellitus Heart disease Hypertension Kidney disease Kidney stones Please refer to HPI Social History Please refer to HPI Hx Tobacco Use In Past Year?: No Smoking Status: Never Smoker Marital status: single Housing status: lives alone Occupational Status: employed Immunizations History of Influenza Vaccine: Yes History of Tetanus Vaccine?: Yes History of Pneumococcal: Yes History of Hepatitis B Vaccine: No History of MDRO History of MDRO: No Allergies Coded Allergies: No Known Allergies (Unverified , 06/04/17) Current Medications Reported Home Medications Medications Dose Route/Sig Max Daily Dose Days Date Category Dose Instructions Glimepiride 2 Mg Tab 2 Mg PO DAILY 06/04/17 Reported Ferrous Sulfate 325 Mg Tab 325 Mg PO BID 06/04/17 Reported Rosuvastatin Calcium 10 Mg Tab 10 Mg PO HS 06/04/17 Reported Zyloprim (Allopurinol) 100 Mg Tab 100 Mg PO DAILY 06/04/17 Reported Lisinopril 5 Mg Tab 5 Mg PO DAILY 06/04/17 Reported Hycodan 5/1.5MG 5 Ml (Hydrocodone W/ Homatropine) 1 Syp Syp 5 Ml PO Q4-6HRS PRN 06/04/17 Reported Clarithromycin 500 Mg Tab 500 Mg PO Q12 7 06/04/17 Reported PRESCRIBED 06/02/2017, TAKE DIRECTED UNTIL GONE Aleve (Naproxen Sodium) 220 Mg Tab 220 Mg PO UD PRN 02/03/16 Reported TAKE PER PACKAGE DIRECTIONS Physical Physical Exam Vital Signs: Date Time Temp Pulse Resp B/P (MAP) Pulse Ox O2 Delivery O2 Flow Rate FiO2 06/08/17 08:00 Room Air 06/08/17 07:25 36.9 85 16 126/80 (95) 93 Room Air 06/08/17 00:17 37.0 89 19 123/72 (89) 91 Room Air 06/08/17 00:05 Room Air 06/07/17 20:05 Room Air 06/07/17 16:04 36.8 95 18 115/72 (86) 95 06/07/17 16:00 Room Air General Appearance: other (Ill appearing male but no apparent distress) Head: NORMOCEPHALIC, ATRAUMATIC Eyes: other (Positive scleral icterus) ENT: NORMAL EAR EXAM, NORMAL NASAL EXAM, other (Signs of jaundice in the sublingual region) Neck: NORMAL RANGE OF MOTION, NO TENDERNESS, TRACHEA MIDLINE, NO STRIDOR Respiratory: other (Bilateral rhonchi best appreciated at the bases with some expiratory wheezing decreased breath sounds) Cardiovasular: other (Distant heart sounds but regular rate and rhythm S1-S2 no murmurs rubs or gallops appreciated) Abdomen: other (Distended with positive bowel sounds soft nontender no hepatosplenomegaly appreciated and no rebound) Genitourinary - Male: EXTERNAL GENITALIA NORMAL Back: NORMAL INSPECTION, NO MIDLINE TENDERNESS, NO CVA TENDERNESS, NO PARAVERTEBRAL TTP Upper Extremities: NO EDEMA, NO DEFORMITY Lower Extremities: edema Edema: Bilateral LE (1+) Pulses: carotid (R) (2+), carotid (L) (2+), dorsalis pedis (R) (2+), dorsalis pedis (L) (2+) Neuro: other (Orientated 3 but notably lethargic) Reflexes: biceps (R) (2+), bicpes (L) (2+), patellar (R) (2+), patellar (L) (2+ ) Babinski Testing: right (downgoing), left (downgoing) Psychiatric: flat affect Diagnostics Labs Results Past 24 Hours Test 06/08/17 04:21 Range/Units White Blood Count 11.56 4.8-10.8 K/uL Red Blood Count 3.62 4.7-6.1 M/uL Hemoglobin 10.2 14.0-18.0 g/dL Hematocrit 29.6 42-52 % Mean Corpuscular Volume 81.8 80-100 fL Mean Corpuscular Hemoglobin 28.2 25-34 pg Mean Corpuscular Hemoglobin Concent 34.5 32-36 g/dl Platelet Count 247 130-400 K/uL Mean Platelet Volume 10.1 7.4-10.4 fL Neutrophils (%) (Auto) 76.5 % Lymphocytes (%) (Auto) 9.2 % Monocytes (%) (Auto) 10.4 % Eosinophils (%) (Auto) 1.0 % Basophils (%) (Auto) 0.2 % Neutrophils # (Auto) 8.86 1.4-6.5 K/uL Lymphocytes # (Auto) 1.06 1.2-3.4 K/uL Monocytes # (Auto) 1.20 0.11-0.59 K/uL Eosinophils # (Auto) 0.11 0-0.5 K/uL Basophils # (Auto) 0.02 0-0.2 K/uL RDW Standard Deviation 43.1 36.4-46.3 fL RDW Coefficient of Variation 14.3 11.5-14.5 % Immature Granulocyte % (Auto) 2.7 % Immature Granulocyte # (Auto) 0.31 0.00-0.02 K/uL Sodium Level 136 136-145 mmol/L Potassium Level 3.8 3.5-5.1 mmol/L Chloride Level 107 98-107 mmol/L Carbon Dioxide Level 23 21-32 mmol/L Anion Gap 6.0 3-11 mmol/L Blood Urea Nitrogen 36 7-18 mg/dl Creatinine 1.61 0.60-1.40 mg/dl Est Creatinine Clear Calc Drug Dose 55.8 ml/min Estimated GFR () 53.1 Estimated GFR (Non- 45.8 BUN/Creatinine Ratio 22.6 10-20 Random Glucose 146 70-99 mg/dl Calcium Level 8.1 8.5-10.1 mg/dl Total Bilirubin 6.6 0.2-1 mg/dl Direct Bilirubin 5.1 0-0.2 mg/dl Aspartate Amino Transf (AST/SGOT) 37 15-37 U/L Alanine Aminotransferase (ALT/SGPT) 34 12-78 U/L Alkaline Phosphatase 243 45-117 U/L Total Protein 6.5 6.4-8.2 gm/dl Albumin 1.6 3.4-5.0 gm/dl Globulin 4.9 2.5-4.0 gm/dl Albumin/Globulin Ratio 0.3 0.9-[address] showing bilateral infiltrative process in the lower lobes and left lower lobe 4-5 mm cavitary nodule EKG Interpretation: NORMAL EKG Impression Assessment and Plan 62-year-old male admitted with bilateral lower lobe infiltrative process and cavitary nodule: #1 Abnormal CAT scan: Patient has notable infiltrative patterns in the bilateral lower lobes with a 45 mm thick rind cavitary nodule. He also has a history of elevated sed rate CRP and proteinuria. Etiology such as vasculitic disease (GPA, SLE, MPA), infections (MSSA, MRSA, TB), aspiration or even malignancy. At this time at like to send off vasculitic panel, obtain 24-hour urine creatinine, send sed rate, CRP, pro-calcitonin and sputum culture. I would like to move forward with a bronchoscopic evaluation of this patient but he is currently having elevated conjugated bilirubin and will monitor his mental status. Patient will most likely require transbronchial biopsy.
[2017-06-08] MEDS ORDERED: PIPERACILL/TAZOBAC CONSULT ACTIVE PRN (14:15)
[2017-06-08 15:01] VITALS: BP 117/73; PULSE 92; TEMP 37; O2SAT 92
[2017-06-08] MEDS ORDERED: PIPERACILL/TAZOBAC IV 4.5 GM in NSS 100 ML IV ONE (16:00)
[2017-06-08] MEDS ORDERED: PIPERACILL/TAZOBAC IV 3.375 GM in DEXTROSE 5% 100ML 100 ML IV ONE (16:00)
--- NOTE | 2017-06-08 17:18 | GASTROINTESTINAL CONSULTATION ---
DATE OF CONSULTATION: 06/08/2017 REASON FOR EVALUATION: Abnormal liver tests. HISTORY OF PRESENT ILLNESS: The patient is a 62-year-old who has been feeling sick for the last 3 weeks with increasing cough, shortness of breath, and fatigue. The patient was seen as an outpatient by his primary care physician and placed on clarithromycin, but he failed to improve and ended up coming in through the ER with bilateral pneumonia. His chest x-ray, chest CT showed bilateral involvement with the cavitation in one of his lungs. Abdominal CT shows fatty liver but a normal-sized bile duct and some small gallstones in his gallbladder. His liver tests were noted to be abnormal with an elevated bilirubin of between 5 and 6 and an elevated alkaline phosphatase of about 240. His aminotransferase levels were normal. The patient is having a little bit of anorexia, but no abdominal pain or prior history of liver disease. He was initially started on Zosyn and then switched to another antibiotic. PAST MEDICAL HISTORY: Remarkable for gout, diabetes, hyperlipidemia. He has had an umbilical hernia repair and appendix removed. MEDICATIONS: Allopurinol, clarithromycin, iron sulfate, glimepiride, lisinopril, rosuvastatin, Aleve, Hycodan. ALLERGIES: None. FAMILY HISTORY: Positive for diabetes, heart disease, hypertension, kidney disease, and cancer. SOCIAL HISTORY: The patient is single, lives alone, is employed, does not smoke. Does drink any alcohol. REVIEW OF SYSTEMS: Positive for weakness, nausea, vomiting, shortness of breath, fatigue. PHYSICAL EXAMINATION: GENERAL: The patient is overweight, in no acute distress. VITAL SIGNS: Blood pressure is 117/73, pulse 92, temperature is 37, O2 saturation is 92% on room air. ABDOMEN: Shows a right lower quadrant and umbilical scar. Bowel sounds are normal. There is no hepatosplenomegaly. No masses or tenderness. IMPRESSION: The patient has abnormal liver tests. I suspect that these are part of a systemic infection rather than an intrinsic specific liver disease. Gilbert's disease rarely goes above a bilirubin of 3 and his bilirubin is currently about 6. It is possible it may be an adverse reaction to his antibiotic, although his antibiotics have not been on board very long. He does have an underlying fatty liver which I am sure predated his current illness. I plan on testing him for some other intrinsic liver diseases including hemochromatosis, alpha 1 antitrypsin deficiency, primary biliary cirrhosis, and hemolysis. I suspect he should be able to proceed with a bronchoscopy to help assess his pulmonary condition. We will continue to follow this patient during his hospital stay.
--- NOTE | 2017-06-08 18:10 | Family Medicine Progress Note ---
Progress Note Date of Service Jun 08, 2017. Subjective Pt evaluation today including: conversation w/ patient, physical exam Pain: Denies pain PO Intake: Tolerating well Voiding: no voiding problems Patient upright and alert this AM. Reports feeling better overall but no real change from yesterday. States he is finally starting to notice yellow hue of skin and whites of eyes Constitutional: No fever, No chills Respiratory: + cough, + sputum, No shortness of breath Abdomen: No pain, No nausea, No vomiting, No diarrhea Skin: + color change, No itch All Other Systems: Reviewed and Negative Medications Current Inpatient Medications Medications (Trade) Dose Ordered Sig/Camron Route Start Time Stop Time Status Last Admin Dose Admin Heparin Sodium (Porcine) (Heparin Sq 5000 Unit/0.5ml) 5,000 unit Q8 SQ 06/04/17 22:00 07/04/17 21:59 06/08/17 13:49 5,000 UNIT Acetaminophen (Tylenol Tab) 650 mg Q4H PRN PO 06/04/17 20:15 07/04/17 20:14 06/08/17 01:23 650 MG Al Hydrox/Mg Hydrox/Simethicone (Maalox Max Susp) 15 ml Q4H PRN PO 06/04/17 20:15 07/04/17 20:14 Magnesium Hydroxide (Milk Of Magnesia Susp) 30 ml Q12H PRN PO 06/04/17 20:15 07/04/17 20:14 Ondansetron HCl (Zofran Inj) 4 mg Q6H PRN IV 06/04/17 20:15 07/04/17 20:14 Polyethylene (Miralax Powder Packet) 17 gm DAILY PRN PO 06/04/17 20:15 07/04/17 20:14 Menthol (Nice Melida) 1 melida PRN PRN MELIDA 06/05/17 16:00 07/05/17 15:59 06/05/17 17:02 24 MELIDA Albuterol (Ventolin Hfa Inhaler) 2 puffs Q4H PRN INH 06/05/17 18:00 07/05/17 17:59 06/06/17 08:18 2 PUFFS Codeine Phosphate/ Guaifenesin (Robitussin-AC Sugar Free Syrup) 10 ml HS PO 06/06/17 21:00 07/06/17 20:59 06/07/17 21:20 10 ML Azithromycin (Zithromax Tab) 500 mg DAILY PO 06/09/17 09:00 06/11/17 08:59 Miscellaneous Information (Consult) 1 ea UD PRN N/A 06/08/17 14:15 07/08/17 14:14 Piperacillin Sod/ Tazobactam Sod 4.5 gm/Sodium Chloride 120 ml @ 30 mls/hr Q8H IV 06/09/17 00:00 06/16/17 00:00 Objective Vital Signs Date Time Temp Pulse Resp B/P (MAP) Pulse Ox O2 Delivery O2 Flow Rate FiO2 06/08/17 15:01 37.0 92 18 117/73 (88) 92 06/08/17 08:00 Room Air 06/08/17 07:25 36.9 85 16 126/80 (95) 93 Room Air 06/08/17 00:17 37.0 89 19 123/72 (89) 91 Room Air 06/08/17 00:05 Room Air 06/07/17 20:05 Room Air Physical Exam General Appearance: WD/WN, no apparent distress, + pertinent finding (Jaundice) Eyes: + abnormal sclerae exam (Icteric sclerae) ENT: hearing grossly normal Respiratory/Chest: chest non-tender, no respiratory distress, no accessory muscle use, + crackles Cardiovascular: regular rate, rhythm, no edema, no murmur Abdomen: normal bowel sounds, non tender, soft, no organomegaly Extremities: normal range of motion, non-tender, normal inspection, no pedal edema, no calf tenderness Neurologic/Psychiatric: no motor/sensory deficits, alert, normal mood/affect Skin: warm/dry, no rash, + jaundice Laboratory Results Last Resulted 06/08/17 04:21 Red Blood Count 3.62, Mean Corpuscular Volume 81.8, Mean Corpuscular Hemoglobin 28.2, Mean Corpuscular Hemoglobin Concent 34.5, Mean Platelet Volume 10.1, Neutrophils (%) (Auto) 76.5, Lymphocytes (%) (Auto) 9.2, Monocytes (%) (Auto) 10.4, Eosinophils (%) (Auto) 1.0, Basophils (%) (Auto) 0.2, Neutrophils # (Auto ) 8.86, Lymphocytes # (Auto) 1.06, Monocytes # (Auto) 1.20, Eosinophils # (Auto ) 0.11, Basophils # (Auto) 0.02 Last Resulted 06/08/17 04:21 Assessment and Plan 62 yo male admitted on [id number] for PNA and acute kidney injury. PMH: DM2 on oral agents, HTN, gout, s/p appendectomy. Sepsis secondary to Multifocal pneumonia: Per patient, diagnosed with PNA around 30Mar, started on clarithromycin. Ongoing cough and fatigue. Met sepsis criteria on admission. CT chest concerning for multifocal pneumonia of possible chronic nature. Also noted cavitary lesion, possible septic embolus, as well as calcified pleural plaques. WBC stable, decreasing to 11.5. 05Apr given single-doses of ceftriaxone 2 grams and azithromycin 500 mg in ED. 06Apr started on zosyn 4.5 grams q12h. 05Apr BCx x 2 with no growth to date. Suspect current infection is a CAP that did not fully respond (? resistant) to the clarithromycin. 06Apr switched back to ceftriaxone and azithromycin. Added albuterol mdi prn to help encourage some coughing. Patient reports he worked in [employer] x 30 years - Would benefit from follow-up CXR vs CT chest (or even bronchoscopy) in one month, sooner depending on how he continues to respond to the above. - Pulm consult: Converted ceftriaxone to zosyn again, continue azithromycin, for bronchoscopy/transbronchial biopsy. TB labs ordered. Vasculitic panel ordered Acute kidney injury: Arrival Cr 5.29, down to 1.6 with hydration. Baseline Cr is around 1.3-1.7. Question of pre-renal source on top of some post-renal ( prostate) source. On IVF. Hyponatremia: Arrival Na 127, improved to 137 with IVF. Likely due to dehydration. Hyperbilirubinemia & Elevated LFTs: AST mildly elevated, but total bili and direct bili also elevated and continue to rise. Lipase normal. Hepatic steatosis seen on CT chest. Gallstones seen on CT a/p. Hepatitis A, B, C negative. Potential sources include elevation from his zosyn, Gilbert's syndrome, or fatty liver disease. However, both total and direct bili continue to rise. 08Apr RUQ u/s showed gallstones without evidence of obstruction. Patient now appears jaundiced but still abdominally asymptomatic. - GI consulted: ordering intrinsic liver labs - Will order coag panel tomorrow am Indeterminate right renal lesion: Seen on CT a/p, possibly cyst as seen on prior [id number] u/s. Recommended PCM f/u for same. Prior medical issues: - HLD: Continue rosuvastatin. - Gout: Holding allopurinol due to LINDSEY. Code status: Full code. Diet: DM2, renal. DVT prophy: Heparin q8h. PT/OT: Deferred. Dispo: Admit on med/surg. Resident Tracking Resident Involvement: Resident Care Provided Care Provided: Adult Hospital Medicine Reviewed: Pt Seen/Exam by Me History breathing is good. appetite has been low. Constitutional: denies: fever Respiratory: negative: short of breath Cardiovascular: denies chest pain General Appearance: no apparent distress Respiratory: lungs clear, no respiratory distress Cardiovascular: regular rate, rhythm Gastrointestinal: soft Neurologic/Psychiatric: alert, oriented x 3 Skin Characteristics: warm/dry Assessment/Plan Resident Physician Supervision Note: I independently interviewed and examined the patient and verified the cervantes history and physical, reviewed labs and image studies, discussed the case with the resident Dr. Hancock and agree with the findings and care plan.
[2017-06-08] MEDS: GUAIFENESIN/CODEINE 100MG/10MG 5ML UDC PO SCH (21:28)
[2017-06-08 22:49] VITALS: BP 118/71; PULSE 93; TEMP 37.2; O2SAT 92
[2017-06-09] MEDS: PIPERACILL/TAZOBAC IV 4.5 GM in NSS 100 ML IV SCH ×4 (00:05→23:44)
[2017-06-09 04:46] LABS: HEMATOCRIT 29.5 % (42-52); HEMOGLOBIN 10.2 g/dL (14.0-18.0); MEAN CELL VOLUME 81.7 fL (80-100); MEAN CORPUSCULAR HEMOGLOBIN 28.3 pg (25-34); MEAN CORPUSCULAR HGB CONC 34.6 g/dl (32-36); PLATELET COUNT 284 K/uL (130-400); RED CELL DISTRIBUTION WIDTH CV 14.5 % (11.5-14.5); RED CELL DISTRIBUTION WIDTH SD 43.5 fL (36.4-46.3); WHITE BLOOD COUNT 14.25 K/uL (4.8-10.8)
[2017-06-09 04:55] LABS: INR 1.1 (0.9-1.1); PTT PATIENT 27.5 SECONDS (21.0-31.0)
[2017-06-09 05:20] LABS: ALBUMIN 1.5 gm/dl (3.4-5.0); CREATININE 1.73 mg/dl (0.60-1.40); TOTAL PROTEIN 6.7 gm/dl (6.4-8.2)
[2017-06-09 05:46] LABS: BASO % 0.1 %; BASO ABS # 0.01 K/uL (0-0.2); EOS % 1.1 %; EOS ABS # 0.16 K/uL (0-0.5); IG# 0.31 K/uL (0.00-0.02); LYMPH ABS # 1.14 K/uL (1.2-3.4); MONO % 7.8 %; MONO ABS # 1.11 K/uL (0.11-0.59); NEUT % 80.8 %; NEUT ABS # 11.52 K/uL (1.4-6.5)
[2017-06-09] MEDS: HEPARIN SOD 5000 UNIT/0.5 ML CARP SQ SCH ×3 (05:51→21:11)
[2017-06-09 07:09] VITALS: BP 99/64; PULSE 93; TEMP 37.4; O2SAT 94
[2017-06-09] MEDS: ACETAMINOPHEN 325 MG TAB PO PRN (08:16)
[2017-06-09] MEDS ORDERED: AZITHROMYCIN 250 MG TAB PO SCH (09:00)
--- NOTE | 2017-06-09 09:10 | Pulmonology Progress Note ---
Pulmonary Progress Note Date of Service Jun 09, 2017. Attending Dr. Mtz Subjective Patient notes his fatigue and coughing if improved over the last 24 hours but continues to have some thick white sputum production Objective Patient sitting up in bed no signs of respiratory insufficiency: Patient notes some mild thick white sputum for suction but denies fever, chills, pleurisy or classic cardiac chest pain Vital signs: Stable on room air Respiratory: Mild rhonchi appreciated at the bases bilaterally Cardiac: S1-S2 regular rate and rhythm Abdomen: Positive bowel sounds HEENT: Scleral icterus [employer]: Cranial nerves II through XII grossly intact, strength 5 out of 5 bilaterally PmHx: DM2, GOUT, HTN, anemia, protuneria, BPH, CKD and Dyslipidemia. He was seen by his PCP and treated with clarithromycin 50mmg BID for diagnosed with LLL pna. Labs WBC: 14K ESR: >90 INR: 1.1 PT: 11.5 aPTT: 27.5 Cr: 5.29---1.61---1.73 T Bili: 6.9 CRP: 16.60 Pro-calcitonin: 2.88 Albumin: 2.21.5 Hepatitis C antibody: Negative Pending Alpha-1 antitrypsin level 24 hour urine protein collection CHANEL screen Antimitochondrial antibody HIV QuantiFERON gold Sputum culture Medications: 1. Azithromycin 500 mg daily 2. Zosyn IV 3. Robitussin-AC 10 mL 4. Ventolin HFA every 4 as needed 5. Heparin subcu 5000 units every 8 hours Assessment & Plan 62-year-old male admitted with bilateral lower lobe infiltrative process and cavitary nodule: #1 Abnormal CAT scan: Serum workup still pending for rheumatologic, vasculitic and infectious etiologies. Will speak to the patient about performing bronchoscopic evaluation to be set up hopefully within the next 24-28 hours. We will repeat coags in the morning as bronchoscopic evaluation may require biopsies. Data Medications: Current Inpatient Medications Medications (Trade) Dose Ordered Sig/Camron Route Start Time Stop Time Status Last Admin Dose Admin Heparin Sodium (Porcine) (Heparin Sq 5000 Unit/0.5ml) 5,000 unit Q8 SQ 06/04/17 22:00 07/04/17 21:59 06/09/17 05:51 5,000 UNIT Acetaminophen (Tylenol Tab) 650 mg Q4H PRN PO 06/04/17 20:15 07/04/17 20:14 06/09/17 08:16 650 MG Al Hydrox/Mg Hydrox/Simethicone (Maalox Max Susp) 15 ml Q4H PRN PO 06/04/17 20:15 07/04/17 20:14 Magnesium Hydroxide (Milk Of Magnesia Susp) 30 ml Q12H PRN PO 06/04/17 20:15 07/04/17 20:14 Ondansetron HCl (Zofran Inj) 4 mg Q6H PRN IV 06/04/17 20:15 07/04/17 20:14 Polyethylene (Miralax Powder Packet) 17 gm DAILY PRN PO 06/04/17 20:15 07/04/17 20:14 Menthol (Nice Melida) 1 melida PRN PRN MELIDA 06/05/17 16:00 07/05/17 15:59 06/05/17 17:02 24 MELIDA Albuterol (Ventolin Hfa Inhaler) 2 puffs Q4H PRN INH 06/05/17 18:00 07/05/17 17:59 06/06/17 08:18 2 PUFFS Codeine Phosphate/ Guaifenesin (Robitussin-AC Sugar Free Syrup) 10 ml HS PO 06/06/17 21:00 07/06/17 20:59 06/08/17 21:28 10 ML Azithromycin (Zithromax Tab) 500 mg DAILY PO 06/09/17 09:00 06/11/17 08:59 06/09/17 08:16 500 MG Miscellaneous Information (Consult) 1 ea UD PRN N/A 06/08/17 14:15 07/08/17 14:14 Piperacillin Sod/ Tazobactam Sod 4.5 gm/Sodium Chloride 120 ml @ 30 mls/hr Q8H IV 06/09/17 00:00 06/16/17 00:00 06/09/17 08:15 30 MLS/HR Vital Signs: Date Time Temp Pulse Resp B/P (MAP) Pulse Ox O2 Delivery O2 Flow Rate FiO2 06/09/17 07:09 37.4 93 16 99/64 (76) 94 Room Air 06/09/17 00:05 Room Air 06/08/17 22:49 37.2 93 18 118/71 (87) 92 Room Air 06/08/17 16:00 Room Air 06/08/17 15:01 37.0 92 18 117/73 (88) 92 Laboratory Results: Last 24 Hours Test 06/08/17 14:15 06/08/17 16:43 06/09/17 04:24 Erythrocyte Sedimentation Rate > 90 mm/hr C-Reactive Protein 16.60 mg/dl Procalcitonin 2.88 ng/ml Iron Level 18 mcg/dl Total Iron Binding Capacity 132 mcg/dl White Blood Count 14.25 K/uL Red Blood Count 3.61 M/uL Hemoglobin 10.2 g/dL Hematocrit 29.5 % Mean Corpuscular Volume 81.7 fL Mean Corpuscular Hemoglobin 28.3 pg Mean Corpuscular Hemoglobin Concent 34.6 g/dl Platelet Count 284 K/uL Mean Platelet Volume 10.0 fL Neutrophils (%) (Auto) 80.8 % Lymphocytes (%) (Auto) 8.0 % Monocytes (%) (Auto) 7.8 % Eosinophils (%) (Auto) 1.1 % Basophils (%) (Auto) 0.1 % Neutrophils # (Auto) 11.52 K/uL Lymphocytes # (Auto) 1.14 K/uL Monocytes # (Auto) 1.11 K/uL Eosinophils # (Auto) 0.16 K/uL Basophils # (Auto) 0.01 K/uL RDW Standard Deviation 43.5 fL RDW Coefficient of Variation 14.5 % Immature Granulocyte % (Auto) 2.2 % Immature Granulocyte # (Auto) 0.31 K/uL Prothrombin Time 11.5 SECONDS Prothromb Time International Ratio 1.1 Activated Partial Thromboplast Time 27.5 SECONDS Partial Thromboplastin Ratio 1.1 Sodium Level 133 mmol/L Potassium Level 4.0 mmol/L Chloride Level 104 mmol/L Carbon Dioxide Level 23 mmol/L Anion Gap 6.0 mmol/L Blood Urea Nitrogen 34 mg/dl Creatinine 1.73 mg/dl Est Creatinine Clear Calc Drug Dose 51.9 ml/min Estimated GFR () 48.7 Estimated GFR (Non- 42.0 BUN/Creatinine Ratio 19.9 Random Glucose 144 mg/dl Calcium Level 8.0 mg/dl Total Bilirubin 6.9 mg/dl Aspartate Amino Transf (AST/SGOT) 40 U/L Alanine Aminotransferase (ALT/SGPT) 35 U/L Alkaline Phosphatase 307 U/L Total Protein 6.7 gm/dl Albumin 1.5 gm/dl Globulin 5.2 gm/dl Albumin/Globulin Ratio 0.3
--- NOTE | 2017-06-09 13:12 | ECHOCARDIOGRAM REPORT ---
*NOTICE TO RECEIVING REPUBLICAN AGENCY This information is strictly Confidential and protected under [place] law. [place] law prohibits you from making any further disclosure of this information unless further disclosure is expressly permitted by the written consent of the person to whom it pertains or is authorized by law. A general authorization for the release of medical or other information is not sufficient for this purpose. Hospital accepts no responsibility if the information is made available to any other person, INCLUDING THE PATIENT. Interpretation Summary * Name: JYOTI HARRISON Study Date: 06/09/2017 10:41 AM BP: 99/64 mmHg * Patient Location: [facility]\S\N288\S\2 HR: 85 * : 1955 (M/d/yyyy) Gender: Male Height: 67 in * Age: 62 yrs Ethnicity: [place] Weight: 226 lb * Ordering Physician: Ramón Wu * Referring Physician: Self, Referred * Performed By: Kiersten Kent RCS * * Reason For Study: ENDOCARDITIS * BSA: 2.1 m2 * -- Conclusions -- * 1. Normal LV size. Mild concentric LVH. * 2. Normal LV systolic function. LVEF 60-65%. No regional wall motion abnormalities. * 3. Mildly dilated RA. Mildly dilated RV. Normal RV function. * 4. No significant valvular pathology. No clear vegetations noted. * 5. Normal estimated PA and RA pressures. * 6. Doppler suggests left to right interatrial shunt. * 7. No prior studies for comparison. Procedure Details * A complete two-dimensional transthoracic echocardiogram was performed (2D, M-mode, Doppler and color flow Doppler). Left Ventricle * The left ventricle is grossly normal size. * There is mild concentric left ventricular hypertrophy. * Ejection Fraction = 60-65%. * No regional wall motion abnormalities noted. Right Ventricle * The right ventricle is mildly dilated. * The right ventricular systolic function is normal as assessed by tricuspid annular plane systolic excursion (TAPSE) (normal >1.5 cm). Atria * The left atrial size is normal. * The right atrium is mildly dilated. * Doppler suggests left to right interatrial shunt. Mitral Valve * The mitral valve is grossly normal. * There is no vegetation seen on the mitral valve. * There is no mitral valve stenosis. * Significant mitral regurgitation is absent. Tricuspid Valve * The tricuspid valve is not well visualized, but is grossly normal. * There is no tricuspid valve vegetation. * There is trace tricuspid regurgitation. Aortic Valve * The aortic valve opens well. * No hemodynamically significant valvular aortic stenosis. * There is no significant aortic regurgitation. Great Vessels * The aortic root and proximal ascending aorta are normal sized. Pericardium/Pleural * There is no pericardial effusion. Great Vessels * Normal inferior vena cava size and collapsability with sniff indicates a normal right atrial pressure of 3 mmHg MMode 2D Measurements and Calculations IVSd 1.4 cm IVSs 1.7 cm LVIDd 4.9 cm LVIDs 3.0 cm LVPWd 1.2 cm LVPWs 1.7 cm IVS/LVPW 1.2 FS 38.2 % EDV(Teich) 113.1 ml ESV(Teich) 36.0 ml EF(Teich) 68.2 % EDV(cubed) 118.1 ml ESV(cubed) 27.9 ml EF(cubed) 76.4 % % IVS thick 18.2 % % LVPW thick 38.4 % LV mass(C)d 261.9 grams LV mass(C)dI 123.0 grams/m\S\2 LV mass(C)s 197.1 grams LV mass(C)sI 92.5 grams/m\S\2 SV(Teich) 77.2 ml SI(Teich) 36.2 ml/m\S\2 SV(cubed) 90.2 ml SI(cubed) 42.3 ml/m\S\2 Ao root diam 3.3 cm Ao root area 8.4 cm\S\2 LVOT diam 2.0 cm LVOT area 3.2 cm\S\2 Doppler Measurements and Calculations MV E max jose 88.4 cm/sec MV A max jose 69.6 cm/sec MV E/A 1.3 MV P1/2t max jose 89.7 cm/sec MV P1/2t 70.5 msec MVA(P1/2t) 3.1 cm\S\2 MV dec slope 372.7 cm/sec\S\2 MV dec time 0.18 sec Ao V2 max 122.5 cm/sec Ao max PG 6.0 mmHg Ao max PG (full) 0.85 mmHg BRENDA(V,A) 3.0 cm\S\2 BRENDA(V,D) 3.0 cm\S\2 LV V1 max PG 5.2 mmHg LV V1 max 113.5 cm/sec PA V2 max 109.6 cm/sec PA max PG 4.8 mmHg
[2017-06-09 13:57] VITALS: BP 106/67; PULSE 84
--- NOTE | 2017-06-09 15:29 | Anesthesiology Progress Note ---
Anesthesia Progress Note Date of Service Jun 09, 2017. Progress Notes This is a 62 y/o obese w male w/ a multifocal pneumonia presenting for an EBUS and flexible bronchoscopy.PMHx is sig. for ASCVD,HTN,Hyperlipidemia,NIDDM,Gout, and ARF on admission.PT is jaundiced secondary to increased LFT's and is severely hypoalbuminemic. Discussed anesthesia w/ pt. ,risks vs benefits,all questions answered.Informed consent obtained. ASA 4
[2017-06-09 15:32] VITALS: BP 114/67; PULSE 90; TEMP 36.9; O2SAT 93
--- NOTE | 2017-06-09 15:52 | Family Medicine Progress Note ---
Progress Note Date of Service Jun 09, 2017. Subjective Pt evaluation today including: conversation w/ patient, physical exam, chart review, lab review Pain: Continues to deny pain PO Intake: Tolerating well Voiding: no voiding problems Patient reports no change to symptoms from yesterday. Continues to feel a bit "wheezy". Constitutional: + fatigue, No fever, No chills Eyes: + problem reported (scleral icterus) Respiratory: + cough, + sputum, + wheezing, No dyspnea at rest Cardiovascular: No chest pain Abdomen: No nausea, No vomiting, No diarrhea, No constipation Musculoskeletal: No joint pain Heme: No abnormal bleeding/bruising Skin: + color change All Other Systems: Reviewed and Negative Medications Current Inpatient Medications Medications (Trade) Dose Ordered Sig/Camron Route Start Time Stop Time Status Last Admin Dose Admin Heparin Sodium (Porcine) (Heparin Sq 5000 Unit/0.5ml) 5,000 unit Q8 SQ 06/04/17 22:00 07/04/17 21:59 06/09/17 14:00 5,000 UNIT Acetaminophen (Tylenol Tab) 650 mg Q4H PRN PO 06/04/17 20:15 07/04/17 20:14 06/09/17 08:16 650 MG Al Hydrox/Mg Hydrox/Simethicone (Maalox Max Susp) 15 ml Q4H PRN PO 06/04/17 20:15 07/04/17 20:14 Magnesium Hydroxide (Milk Of Magnesia Susp) 30 ml Q12H PRN PO 06/04/17 20:15 07/04/17 20:14 Ondansetron HCl (Zofran Inj) 4 mg Q6H PRN IV 06/04/17 20:15 07/04/17 20:14 Polyethylene (Miralax Powder Packet) 17 gm DAILY PRN PO 06/04/17 20:15 07/04/17 20:14 Menthol (Nice Melida) 1 melida PRN PRN MELIDA 06/05/17 16:00 07/05/17 15:59 06/05/17 17:02 24 MELIDA Albuterol (Ventolin Hfa Inhaler) 2 puffs Q4H PRN INH 06/05/17 18:00 07/05/17 17:59 06/06/17 08:18 2 PUFFS Codeine Phosphate/ Guaifenesin (Robitussin-AC Sugar Free Syrup) 10 ml HS PO 06/06/17 21:00 07/06/17 20:59 06/08/17 21:28 10 ML Azithromycin (Zithromax Tab) 500 mg DAILY PO 06/09/17 09:00 06/11/17 08:59 06/09/17 08:16 500 MG Miscellaneous Information (Consult) 1 ea UD PRN N/A 06/08/17 14:15 07/08/17 14:14 Piperacillin Sod/ Tazobactam Sod 4.5 gm/Sodium Chloride 120 ml @ 30 mls/hr Q8H IV 06/09/17 00:00 06/16/17 00:00 06/09/17 08:15 30 MLS/HR Objective Vital Signs Date Time Temp Pulse Resp B/P (MAP) Pulse Ox O2 Delivery O2 Flow Rate FiO2 06/09/17 13:57 84 106/67 (80) 06/09/17 08:00 Room Air 06/09/17 07:09 37.4 93 16 99/64 (76) 94 Room Air 06/09/17 00:05 Room Air 06/08/17 22:49 37.2 93 18 118/71 (87) 92 Room Air 06/08/17 16:00 Room Air Physical Exam General Appearance: WD/WN, no apparent distress Eyes: + abnormal sclerae exam (icteric) ENT: hearing grossly normal Respiratory/Chest: no respiratory distress, no accessory muscle use, + decreased breath sounds Cardiovascular: regular rate, rhythm, no edema, no murmur Abdomen: normal bowel sounds, non tender, no organomegaly Extremities: normal inspection, no pedal edema, no calf tenderness 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, no motor/sensory deficits, alert, normal mood/affect, oriented x 3 Skin: + jaundice Laboratory Results Last Resulted 06/09/17 04:24 Red Blood Count 3.61, Mean Corpuscular Volume 81.7, Mean Corpuscular Hemoglobin 28.3, Mean Corpuscular Hemoglobin Concent 34.6, Mean Platelet Volume 10.0, Neutrophils (%) (Auto) 80.8, Lymphocytes (%) (Auto) 8.0, Monocytes (%) (Auto) 7.8, Eosinophils (%) (Auto) 1.1, Basophils (%) (Auto) 0.1, Neutrophils # (Auto) 11.52, Lymphocytes # (Auto) 1.14, Monocytes # (Auto) 1.11, Eosinophils # (Auto) 0.16, Basophils # (Auto) 0.01 Last Resulted 06/09/17 04:24 Past 24 Hours Test 06/09/17 04:24 Range/Units Prothromb Time International Ratio 1.1 0.9-1.1 Prothrombin Time 11.5 9.0-12.0 SECONDS Assessment and Plan 62 yo male admitted on [id number] for sepsis 2/2 multifocal PNA with cavitary lesion unresponsive to outpatient therapy and acute kidney injury. Admission has been complicated by Hyperbilirubinemia/abnormal LFTs. PMH includes T2DM on oral agents, HTN, gout, s/p appendectomy. Sepsis secondary to Multifocal pneumonia: - Per patient, diagnosed with PNA around 30Mar, started on clarithromycin, but had ongoing cough and fatigue. - CT chest showed multifocal pneumonia, cavitary lesion, possible septic embolus , as well as calcified pleural plaques. - Current antibiotics include: zosyn day #4. Azithromycin held today for potential contribution to abnormal LFTs - Negative blood cultures. - Pulm consult: for bronchoscopy/transbronchial biopsy in next 24-48 hrs. TB labs ordered. Vasculitic panel ordered - Would benefit from follow-up CXR vs CT chest (or even bronchoscopy) in one month from discharge, sooner depending on how he continues to respond to the above. Hyperbilirubinemia & Elevated LFTs: -AST mildly elevated, but tbili and dbili also elevated and continue to rise. Lipase normal. Hepatitis A, B, C negative. Coags normal -Hepatic steatosis seen on CT chest. Gallstones seen on CT a/p. -Patient appears jaundiced but still abdominally asymptomatic. -GI consulted: ordering intrinsic liver labs -Echo ordered, ruled out vegetations as possible source of emboli -Potential sources include elevation from his zosyn, Gilbert's syndrome, or fatty liver disease. RUQ u/s showed gallstones without evidence of obstruction. -Other probable cause includes adverse reaction to macrolide antibiotics Acute kidney injury, resolved - Arrival Cr 5.29, down to 1.6 with hydration. Baseline Cr is around 1.3-1.7. Question of pre-renal source on top of some post-renal (prostate) source. Hyponatremia, resolved - Arrival Na 127, improved to 137 with IVF. Likely due to dehydration. Indeterminate right renal lesion: S -Seen on CT a/p, possibly cyst as seen on prior [id number] u/s. Recommended PCP f/u for same. HLD: Continue rosuvastatin. Gout: Holding allopurinol due to LINDSEY. Code: Full code. DVTP: Heparin q8h. Dispo: med/surg. Resident Tracking Resident Involvement: Resident Care Provided Care Provided: Adult Hospital Medicine Reviewed: Pt Seen/Exam by Me History no concerns. Constitutional: denies: fever Respiratory: negative: short of breath Cardiovascular: denies chest pain General Appearance: no apparent distress Respiratory: lungs clear, no respiratory distress Cardiovascular: regular rate, rhythm Gastrointestinal: soft Neurologic/Psychiatric: alert, oriented x 3 Skin Characteristics: jaundice Assessment/Plan Resident Physician Supervision Note: I independently interviewed and examined the patient and verified the cervantes history and physical, reviewed labs and image studies, discussed the case with the resident Dr. Hancock and agree with the findings and care plan.
--- NOTE | 2017-06-09 17:41 | GASTROENTEROLOGY PROGRESS NOTE ---
DATE: 06/09/2017 Chart reviewed, patient examined. Patient was seen by Dr. Domingo yesterday in consultation for abnormal liver tests in the setting of acute pneumonia. Patient's abdominal CT showed a fatty liver but no evidence for bile duct dilation. Cholelithiasis was present. The patient although having normal transaminases and elevated bilirubin and mild elevation in alkaline phosphatase. Several chronic liver markers were obtained, currently many of these are pending. However, to date, there is no evidence for acute hepatitis A or acute B. Hepatitis C antibody is negative. Other markers including TB testing, HIV status are pending, CHANEL and antimitochondrial are pending as well as alpha 1 antitrypsin. MEDICATIONS: Reviewed and include Zosyn, albuterol, heparin subQ q. 8, mag ox. IMAGING: CT imaging suggests a right lower lobe pneumonia as well as in the left lower lobe and right middle lobe. There is also a cavitating lesion in the left lower lobe. REVIEW OF SYSTEMS: Otherwise noncontributory based on 13-point exam except for mentioned above. PHYSICAL EXAMINATION: VITAL SIGNS: Afebrile at 36.9, blood pressure 114/67, respirations 18, heart rate 93% on room air. HEART: Normal S1, S2. LUNGS: Show decreased breath sounds at both bases, anteriorly the upper half of the lung hicks are normal, without wheezes or rhonchi. ABDOMEN: Soft, obese, nontender, nondistended with positive bowel sounds. There is no rebound or guarding. There is no evidence of ascites or shifting dullness. EXTREMITIES: With trace to +1 edema bilaterally. RECTAL: Deferred. Patient's liver test panel shows a total bilirubin today of 6.9, AST 40, ALT 35 and alkaline phosphatase of 307. This is slightly higher than yesterday at bilirubin of 6.6 and direct of 5.1. Alkaline phosphatase is also up from 243 although transaminases were normal. IMPRESSION: Source of the patient's liver tests at this point are unclear and may reflect a multifactorial source including the antibiotics use, the right lower lobe pneumonia which can sometimes cause elevations in liver tests, particularly alkaline phosphatase and bilirubin. This is mostly a direct hyperbilirubinemia without evidence of biliary ductal dilatation. Would follow LFTs serially. Patient was treated initially for pneumonia as an outpatient with clarithromycin several days prior to admission. There is no report of use of Augmentin or a sulfa agent. We will follow with you. Further recommendations once additional blood tests are available as well. Patient encouraged to ambulate as much as tolerated and could consider incentive spirometry if not currently being performed. MTDD
[2017-06-09 19:41] VITALS: BP 111/69; PULSE 92; TEMP 37; O2SAT 93
[2017-06-09] MEDS: GUAIFENESIN/CODEINE 100MG/10MG 5ML UDC PO SCH (21:05)
[2017-06-09 23:40] VITALS: BP 111/68; PULSE 91; TEMP 37.4; O2SAT 90
[2017-06-10] VITALS (10 sets, daily range): BP systolic 114–134; BP diastolic 68–81; PULSE 81–99; TEMP 36.6–37.3; O2SAT 90–98
[2017-06-10] MEDS: HEPARIN SOD 5000 UNIT/0.5 ML CARP SQ SCH ×2 (05:54→20:35)
[2017-06-10 07:38] LABS: HEMATOCRIT 28.8 % (42-52); HEMOGLOBIN 9.9 g/dL (14.0-18.0); MEAN CELL VOLUME 81.4 fL (80-100); MEAN CORPUSCULAR HGB CONC 34.4 g/dl (32-36); MEAN PLATELET VOLUME 9.3 fL (7.4-10.4); PLATELET COUNT 337 K/uL (130-400); RED CELL DISTRIBUTION WIDTH CV 14.5 % (11.5-14.5); RED CELL DISTRIBUTION WIDTH SD 43.3 fL (36.4-46.3); WHITE BLOOD COUNT 18.25 K/uL (4.8-10.8)
[2017-06-10 08:14] LABS: ALBUMIN 1.4 gm/dl (3.4-5.0); CALCIUM 7.9 mg/dl (8.5-10.1); CREATININE 1.83 mg/dl (0.60-1.40); POTASSIUM 3.9 mmol/L (3.5-5.1); TOTAL PROTEIN 6.6 gm/dl (6.4-8.2)
[2017-06-10] MEDS ORDERED: FENTANYL CITRATE INJ 50 MCG/1 ML 2 ML VIAL IV PRN (08:45)
[2017-06-10] MEDS ORDERED: LABETALOL HCL IV 5 MG/ML 20ML IV PRN (08:45)
[2017-06-10] MEDS ORDERED: EpHEDrine SULFATE INJ 50 MG/ML AMP IV PRN (08:45)
[2017-06-10] MEDS ORDERED: ONDANSETRON INJ 2 MG/ML 2 ML VIAL IV PRN (08:45)
[2017-06-10] MEDS ORDERED: NALOXONE HCL 0.4 MG/1 ML VIAL/CARP IV PRN (08:45)
[2017-06-10] MEDS ORDERED: FLUMAZENIL 0.1 MG/1 ML 10 ML VIAL IV PRN (08:45)
[2017-06-10] MEDS ORDERED: PHENYLEPHRINE 100MCG/ML 5ML SYR IV PRN (08:45)
[2017-06-10] MEDS ORDERED: ATROPINE SULFATE 0.1 MG/ML 5ML SYR IV PRN (08:45)
[2017-06-10] MEDS ORDERED: HYDROmorphone INJ 2 MG/ML SYR/VIAL IV PRN (08:45)
[2017-06-10] MEDS ORDERED: MEPERIDINE HCL 25 MG/ML CARP IV PRN (08:45)
[2017-06-10] MEDS: PIPERACILL/TAZOBAC IV 4.5 GM in NSS 100 ML IV SCH ×2 (08:57→16:27)
[2017-06-10] MEDS ORDERED: GLYCOPYRROLATE INJ 0.2 MG/ML VIAL ONE (10:03)
[2017-06-10] MEDS ORDERED: MIDAZOLAM HCL 1 MG/ML 2ML VIAL ONE (10:03)
[2017-06-10] MEDS ORDERED: DEXAMETHASONE SOD INJ 4 MG/ML VIAL ONE (10:03)
[2017-06-10] MEDS ORDERED: ONDANSETRON INJ 2 MG/ML 2 ML VIAL ONE (10:03)
[2017-06-10] MEDS ORDERED: EpHEDrine SULFATE INJ 50 MG/ML AMP ONE (10:03)
[2017-06-10] MEDS ORDERED: PROPOFOL IV EMULSION 10 MG/ML 20 ML VIAL IV ONE ×2 (10:03→12:19)
[2017-06-10] MEDS ORDERED: FENTANYL CITRATE INJ 50 MCG/1 ML 2 ML VIAL ONE (10:03)
[2017-06-10] MEDS ORDERED: SUCCINYLCHOLINE CHLORIDE 20 MG/ML 10 ML VIAL IV ONE ×2 (10:03→10:28)
[2017-06-10] MEDS ORDERED: NEOSTIGMINE METHYLSULFATE 5 MG/5 ML SYR ONE (10:03)
[2017-06-10] MEDS ORDERED: LIDOCAINE HCL 2% 2 ML VIAL (20MG/ML) ONE (10:03)
[2017-06-10] MEDS ORDERED: PHENYLEPHRINE HCL INJ 10 MG/ML VIAL ONE (10:03)
[2017-06-10] MEDS ORDERED: ROCURONIUM BROMIDE 10 MG/ML 5 ML VIAL IV ONE (10:06)
--- NOTE | 2017-06-10 11:50 | History & Physical Bridge Note ---
H&P Re-Evaluation Bridge Note: I have examined the patient, reviewed the History & Physical and in the interval since the performance of the History & Physical I have noted the following changes of clinical significance: No changes noted
--- NOTE | 2017-06-10 12:48 | Bronchoscopy Procedure Note ---
Bronchoscopy Procedure Note Procedure: Flexible-Bronchoscopy, EBUS, FNA, BAL Consent: Obtained through the patient placed into the chart Pre-Procedural Dx: Bilateral necrotizing pneumonia Post-Procedural Dx: Aspiration pneumonia Analgesia: GETA Sedation: GETA Procedure: The Olympus video bronchoscope and EBUS scope were used for this procedure Initially the flexible bronchoscope was used for evaluation of the airways. The ET tube was notably 5cm above the level of the sunshine. Trachea: Visualized portion of the trachea was anatomically within normal limits , gastric secretions noted Sunshine: Anatomically within normal limits, gastric secretions noted Right bronchial tree: Right mainstem bronchus: Anatomically within normal limits Right upper lobe: Anatomically within normal limits Bronchus intermedius: Anatomically within normal limits Right middle lobe: Anatomically within normal limits Right lower lobe: Anatomically within normal limits Findings: Gastric secretions noted Left bronchial tree: Left mainstem bronchus: Anatomically within normal limits Left upper lobe: Anatomically within normal limits Lingula: Anatomically within normal limits Left lower lobe: Anatomically within normal limits Findings: Gastric secretions noted EBUS/OTIS: FNA Valerie Stations: 7: # of passes 3 11L: # of passes 3 BAL: Left lower and right lower lobe EBL: None Complications: None Follow-up: PACU
[2017-06-10 13:45] LABS: QUANTIF MITOGEN-NIL 1.58 IU/ML; QUANTIFERON NEGATIVE (NEGATIVE); QUANTIFERON NIL 0.04 IU/ML
--- NOTE | 2017-06-10 13:47 | Anesthesiology Progress Note ---
Anesthesia Post Op Note Date & Time Jun 10, 2017 at 13:47 Vital Signs Pain Intensity: 0 Vital Signs Past 12 Hours Date Time Temp Pulse Resp B/P (MAP) Pulse Ox O2 Delivery O2 Flow Rate FiO2 06/10/17 13:40 36.4 88 16 128/72 96 Nasal Cannula 3 06/10/17 13:30 93 16 122/74 96 Nasal Cannula 3 06/10/17 13:20 95 16 134/69 96 Nasal Cannula 3 06/10/17 13:10 92 16 118/68 94 Nasal Cannula 3 06/10/17 13:00 90 16 107/62 96 Oxymask 5 06/10/17 12:53 36.6 91 17 113/75 95 Oxymask 10 06/10/17 08:00 Room Air 06/10/17 07:16 37.3 94 20 119/76 (90) 90 Room Air Notes Mental Status: alert / awake / arousable, participated in evaluation Pt Amnestic to Procedure: Yes Nausea / Vomiting: adequately controlled Pain: adequately controlled Airway Patency, RR, SpO2: stable & adequate BP & HR: stable & adequate Hydration State: stable & adequate Anesthetic Complications: no major complications apparent
[2017-06-10 13:56] LABS: HAPTOGLOBIN TC 45427W 380 MG/DL (43-212)
--- NOTE | 2017-06-10 17:39 | GASTROENTEROLOGY PROGRESS NOTE ---
DATE: 06/10/2017 HISTORY OF PRESENT ILLNESS: Chart reviewed, patient examined. The patient underwent EBUS today for multifocal pneumonia and cavitating lesion. Specimens pending. Lymph nodes were sampled today along with bronchial washing. The patient's liver tests show a mixed pattern of changes. His white count is up to 18.25 today with a hemoglobin of 9.9, MCV 81. His serum chemistry, BUN and creatinine are 34 and 1.83, potassium 3.9, AST 39, ALT 33, and bilirubin is down to 5.7 from 6.9 yesterday. However, alkaline phosphatase is slightly elevated at 335. Alpha 1 antitrypsin is elevated at 379 which is satisfactory. His other serologies show a negative hepatitis C antibody, B surface antigen, and TB testing was negative. Antimitochondrial antibody was less than 120. CHANEL pending. MEDICATIONS: Include Zosyn, Robitussin-AC, albuterol, menthol Tylenol, Zofran. ALLERGIES: No known drug allergies. REVIEW OF SYSTEMS: Otherwise noncontributory based on 13-point exam except for mentioned above. PHYSICAL EXAMINATION: VITAL SIGNS: Today, the patient is afebrile at 36.8, blood pressure 114/70, respirations 18, heart rate 89 and 94% on room air. GENERAL: The patient is awake, alert and oriented x3, sitting comfortably in the bed. EYES: Sclerae mildly icteric, conjunctivae moist. HEART: Normal S1, S2. LUNGS: Overall clear to auscultation without wheezes. ABDOMEN: Soft, flat, nontender, nondistended with good bowel sounds. EXTREMITIES: With trace edema. RECTAL: Deferred. IMPRESSION AND PLAN: A mixed pattern changes of his liver function tests with a slow decline in bilirubin, essentially normal transaminases, but a mild increase from yesterday's alkaline phosphatase which is now at 335. This may reflect the right lower lobe pneumonic process. Would continue to follow his LFTs serially. Imaging has not identified any abnormalities in the hepatobiliary system otherwise. Await bronchial washing and lymph node biopsies.
--- NOTE | 2017-06-10 20:11 | Family Medicine Progress Note ---
Progress Note Date of Service Jun 10, 2017. Subjective Pt evaluation today including: conversation w/ patient, physical exam, review of studies Pain: Denies pain PO Intake: NPO for procedure Voiding: no voiding problems Patient states he is feeling a little better compared to yesterday. Is anxious about bronchoscopy Constitutional: No fever, No chills Respiratory: + cough, + sputum, + wheezing Abdomen: No pain, No nausea, No vomiting All Other Systems: Reviewed and Negative Medications Current Inpatient Medications Medications (Trade) Dose Ordered Sig/Camron Route Start Time Stop Time Status Last Admin Dose Admin Heparin Sodium (Porcine) (Heparin Sq 5000 Unit/0.5ml) 5,000 unit Q8 SQ 06/04/17 22:00 07/04/17 21:59 Future hold 06/09/17 21:11 5,000 UNIT Acetaminophen (Tylenol Tab) 650 mg Q4H PRN PO 06/04/17 20:15 07/04/17 20:14 06/09/17 08:16 650 MG Al Hydrox/Mg Hydrox/Simethicone (Maalox Max Susp) 15 ml Q4H PRN PO 06/04/17 20:15 07/04/17 20:14 Magnesium Hydroxide (Milk Of Magnesia Susp) 30 ml Q12H PRN PO 06/04/17 20:15 07/04/17 20:14 Ondansetron HCl (Zofran Inj) 4 mg Q6H PRN IV 06/04/17 20:15 07/04/17 20:14 Polyethylene (Miralax Powder Packet) 17 gm DAILY PRN PO 06/04/17 20:15 07/04/17 20:14 Menthol (Nice Melida) 1 melida PRN PRN MELIDA 06/05/17 16:00 07/05/17 15:59 06/05/17 17:02 24 MELIDA Albuterol (Ventolin Hfa Inhaler) 2 puffs Q4H PRN INH 06/05/17 18:00 07/05/17 17:59 06/06/17 08:18 2 PUFFS Codeine Phosphate/ Guaifenesin (Robitussin-AC Sugar Free Syrup) 10 ml HS PO 06/06/17 21:00 07/06/17 20:59 06/09/17 21:05 10 ML Azithromycin (Zithromax Tab) 500 mg DAILY PO 06/09/17 09:00 06/11/17 08:59 Future Hold 06/09/17 08:16 500 MG Miscellaneous Information (Consult) 1 ea UD PRN N/A 06/08/17 14:15 07/08/17 14:14 Piperacillin Sod/ Tazobactam Sod 4.5 gm/Sodium Chloride 120 ml @ 30 mls/hr Q8H IV 06/09/17 00:00 06/16/17 00:00 06/10/17 16:27 30 MLS/HR Objective Vital Signs Current Inpatient Medications Medications (Trade) Dose Ordered Sig/Camron Route Start Time Stop Time Status Last Admin Dose Admin Heparin Sodium (Porcine) (Heparin Sq 5000 Unit/0.5ml) 5,000 unit Q8 SQ 06/04/17 22:00 07/04/17 21:59 Future hold 06/09/17 21:11 5,000 UNIT Acetaminophen (Tylenol Tab) 650 mg Q4H PRN PO 06/04/17 20:15 07/04/17 20:14 06/09/17 08:16 650 MG Al Hydrox/Mg Hydrox/Simethicone (Maalox Max Susp) 15 ml Q4H PRN PO 06/04/17 20:15 07/04/17 20:14 Magnesium Hydroxide (Milk Of Magnesia Susp) 30 ml Q12H PRN PO 06/04/17 20:15 07/04/17 20:14 Ondansetron HCl (Zofran Inj) 4 mg Q6H PRN IV 06/04/17 20:15 07/04/17 20:14 Polyethylene (Miralax Powder Packet) 17 gm DAILY PRN PO 06/04/17 20:15 07/04/17 20:14 Menthol (Nice Melida) 1 melida PRN PRN MELIDA 06/05/17 16:00 07/05/17 15:59 06/05/17 17:02 24 MELIDA Albuterol (Ventolin Hfa Inhaler) 2 puffs Q4H PRN INH 06/05/17 18:00 07/05/17 17:59 06/06/17 08:18 2 PUFFS Codeine Phosphate/ Guaifenesin (Robitussin-AC Sugar Free Syrup) 10 ml HS PO 06/06/17 21:00 07/06/17 20:59 06/09/17 21:05 10 ML Azithromycin (Zithromax Tab) 500 mg DAILY PO 06/09/17 09:00 06/11/17 08:59 Future Hold 06/09/17 08:16 500 MG Miscellaneous Information (Consult) 1 ea UD PRN N/A 06/08/17 14:15 07/08/17 14:14 Piperacillin Sod/ Tazobactam Sod 4.5 gm/Sodium Chloride 120 ml @ 30 mls/hr Q8H IV 06/09/17 00:00 06/16/17 00:00 06/10/17 16:27 30 MLS/HR Physical Exam General Appearance: WD/WN, no apparent distress Eyes: PERRL, + abnormal sclerae exam (icteric) ENT: hearing grossly normal Respiratory/Chest: no respiratory distress, + wheezing (expiratory ) Cardiovascular: no edema, no JVD, no murmur Abdomen: non tender, soft Extremities: non-tender, normal inspection, no pedal edema, no calf tenderness Neurologic/Psychiatric: no motor/sensory deficits, alert, normal mood/affect, oriented x 3 Skin: + jaundice Laboratory Results Last Resulted 06/10/17 07:04 Last Resulted 06/10/17 07:04 Assessment and Plan 62 yo male admitted on [id number] for sepsis 2/2 multifocal PNA with cavitary lesion unresponsive to outpatient therapy and acute kidney injury. Admission has been complicated by Hyperbilirubinemia/abnormal LFTs. PMH includes T2DM on oral agents, HTN, gout, s/p appendectomy. Sepsis secondary to Multifocal pneumonia: - Per patient, diagnosed with PNA around 30Mar, started on clarithromycin, but had ongoing cough and fatigue. - CT chest showed multifocal pneumonia, cavitary lesion, possible septic embolus , as well as calcified pleural plaques. - Current antibiotics include: zosyn day #5. Azithromycin held today for potential contribution to abnormal LFTs - Negative blood cultures. - Pulm consult: bronch showed aspiration of gastric contents. Speech eval ordered. - TB labs negative. Vasculitic panel ordered - Would benefit from follow-up CXR vs CT chest (or even bronchoscopy) in one month from discharge, sooner depending on how he continues to respond to the above. Hyperbilirubinemia & Elevated LFTs: -AST mildly elevated, but tbili and dbili also elevated. Lipase normal. Hepatitis A, B, C negative. Coags normal -Hepatic steatosis seen on CT chest. Gallstones seen on CT a/p. -Patient appears jaundiced but still abdominally asymptomatic. -GI consulted: ordering intrinsic liver labs -Echo ordered, ruled out vegetations as possible source of emboli -Potential sources include elevation from his zosyn, Gilbert's syndrome, or fatty liver disease. RUQ u/s showed gallstones without evidence of obstruction. -Other possible cause includes adverse reaction to macrolide antibiotics Acute kidney injury, - Arrival Cr 5.29, decreased to baseline with hydration, however slight bump in Cr to 1.8 today - Baseline Cr is around 1.3-1.7. Question of pre-renal source due to hypovolemia on top of some post-renal (prostate) source. Hyponatremia, resolved - Arrival Na 127, improved to 137 with IVF. Likely due to dehydration. Indeterminate right renal lesion: -Seen on CT a/p, possibly cyst as seen on prior [id number] u/s. Recommended PCP f/u for same. HLD: Continue rosuvastatin. Gout: Holding allopurinol due to LINDSEY. Code: Full code. DVTP: Heparin q8h. Dispo: med/surg. Resident Tracking Resident Involvement: Resident Care Provided Care Provided: Adult Hospital Medicine Reviewed: Pt Seen/Exam by Me History decreased appetite Constitutional: denies: fever Respiratory: negative: short of breath Cardiovascular: denies chest pain Gastrointestinal/Abdominal: negative: abdominal pain General Appearance: no apparent distress Respiratory: lungs clear, no respiratory distress Cardiovascular: regular rate, rhythm Gastrointestinal: normal bowel sounds, non tender, soft Neurologic/Psychiatric: alert, oriented x 3 Skin Characteristics: jaundice Assessment/Plan Resident Physician Supervision Note: I independently interviewed and examined the patient and verified the cervantes history and physical, reviewed labs and image studies, discussed the case with the resident Dr. Hancock and agree with the findings and care plan.
[2017-06-10] MEDS: GUAIFENESIN/CODEINE 100MG/10MG 5ML UDC PO SCH (20:34)
[2017-06-10] MEDS ORDERED: INSULIN HUMAN REGULAR PER UNIT 8 UNITS in SYRINGE 7.92 ML IV ONE (23:15)
[2017-06-11] VITALS: O2SAT 96
[2017-06-11] MEDS: PIPERACILL/TAZOBAC IV 4.5 GM in NSS 100 ML IV SCH ×3 (00:19→16:28)
[2017-06-11] MEDS: INSULIN ASPART 100 UNITS/ML 3 ML PEN SC SCH ×5 (00:26→20:47)
[2017-06-11 06:03] LABS: BASO % 0.1 %; BASO ABS # 0.01 K/uL (0-0.2); HEMATOCRIT 27.3 % (42-52); HEMOGLOBIN 9.4 g/dL (14.0-18.0); IG# 0.26 K/uL (0.00-0.02); LYMPH % 4.2 %; LYMPH ABS # 0.71 K/uL (1.2-3.4); MEAN CELL VOLUME 80.8 fL (80-100); MEAN CORPUSCULAR HEMOGLOBIN 27.8 pg (25-34); MEAN CORPUSCULAR HGB CONC 34.4 g/dl (32-36); MEAN PLATELET VOLUME 9.5 fL (7.4-10.4); MONO % 2.8 %; MONO ABS # 0.46 K/uL (0.11-0.59); NEUT % 91.3 %; NEUT ABS # 15.28 K/uL (1.4-6.5); PLATELET COUNT 384 K/uL (130-400); RED CELL DISTRIBUTION WIDTH CV 14.5 % (11.5-14.5); RED CELL DISTRIBUTION WIDTH SD 42.8 fL (36.4-46.3); WHITE BLOOD COUNT 16.72 K/uL (4.8-10.8)
[2017-06-11] MEDS: HEPARIN SOD 5000 UNIT/0.5 ML CARP SQ SCH ×3 (06:26→20:48)
[2017-06-11 06:49] LABS: ALBUMIN 1.4 gm/dl (3.4-5.0); CALCIUM 7.8 mg/dl (8.5-10.1); CREATININE 1.96 mg/dl (0.60-1.40); POTASSIUM 4.5 mmol/L (3.5-5.1); TOTAL PROTEIN 7.1 gm/dl (6.4-8.2)
[2017-06-11 07:23] VITALS: BP 147/81; PULSE 78; TEMP 36.3; O2SAT 94
[2017-06-11] MEDS ORDERED: GLUCOSE 40% GEL 15 GM TUBE PO PRN (09:00)
[2017-06-11] MEDS ORDERED: GLUCOSE 10 TABS/TUBE PO PRN (09:00)
[2017-06-11] MEDS ORDERED: GLUCAGON FOR INJ 1 MG VIAL SQ PRN (09:00)
[2017-06-11] MEDS ORDERED: DEXTROSE 50% 50 ML SYR IV PRN (09:00)
--- NOTE | 2017-06-11 11:21 | Nephrology Consultation ---
Nephrology Consultation Date & Providers Date of Consultation: Jun 11, 2017. Primary Care Provider: Jagdeep Turk M.D. Referring Provider: Reason for Consultation LINDSEY / CKD History of Present Illness Mr. Moon is a 62 year old white male who is seen at the request of Dr. Wu for evaluation of acute on chronic kidney injury. Medical records in the EMR were reviewed and are summarized as follows: Mr. Moon has CKD w/ basline creatinine 1.6. Previous Nephrology evaluation revealed proteinuria 2.2 g / day. UIEP negative. Renal US w/ mild asymmetry and simple renal cysts. Bladder wall was thick c/w chronic RODRIGUEZ. Mr. Moon was only seen once in the Nephrology office in 06/16. He was then lost to follow up. PMH is significant for AODM > 10 years without retinopathy, HTN, gout, vitamin D deficiency, iron deficiency anemia, BPH w/ RODRIGUEZ. Mr. Moon was admitted to the hospital 06/04/17 due to mental status changes and weakness. Evaluation has revealed RML, RLL consolidation and LLL cavitary lesion. Bronchoscopy 06/10/17 was c/w aspiration pneumonia. He is now on broad spectrum antibiotic therapy. Patient has been jaundiced. Hepatitis studies are pending. Bilirubin is trending down off statin therapy. Serum creatinine was 5.2 on admission. This has improved to 1.9 with IV hydration and antibiotic therapy. Urinalysis shows hematuria and granular casts. Serum sodium has been gradually trending down. Past Medical/Surgical History Medical: # AODM > 10 years without retinopathy # HTN # Gout # Vitamin D deficiency # Iron deficiency anemia # BPH w/ RODRIGUEZ. Allergies Coded Allergies: No Known Allergies (Unverified , 06/04/17) Inpatient Medications Current Inpatient Medications Medications (Trade) Dose Ordered Sig/Camron Route Start Time Stop Time Status Last Admin Dose Admin Heparin Sodium (Porcine) (Heparin Sq 5000 Unit/0.5ml) 5,000 unit Q8 SQ 06/04/17 22:00 07/04/17 21:59 Future hold 06/11/17 06:26 5,000 UNIT Acetaminophen (Tylenol Tab) 650 mg Q4H PRN PO 06/04/17 20:15 07/04/17 20:14 06/09/17 08:16 650 MG Al Hydrox/Mg Hydrox/Simethicone (Maalox Max Susp) 15 ml Q4H PRN PO 06/04/17 20:15 07/04/17 20:14 Magnesium Hydroxide (Milk Of Magnesia Susp) 30 ml Q12H PRN PO 06/04/17 20:15 07/04/17 20:14 Ondansetron HCl (Zofran Inj) 4 mg Q6H PRN IV 06/04/17 20:15 07/04/17 20:14 Polyethylene (Miralax Powder Packet) 17 gm DAILY PRN PO 06/04/17 20:15 07/04/17 20:14 Menthol (Nice Melida) 1 melida PRN PRN MELIDA 06/05/17 16:00 07/05/17 15:59 06/05/17 17:02 24 MELIDA Albuterol (Ventolin Hfa Inhaler) 2 puffs Q4H PRN INH 06/05/17 18:00 07/05/17 17:59 06/06/17 08:18 2 PUFFS Codeine Phosphate/ Guaifenesin (Robitussin-AC Sugar Free Syrup) 10 ml HS PO 06/06/17 21:00 07/06/17 20:59 06/10/17 20:34 10 ML Miscellaneous Information (Consult) 1 ea UD PRN N/A 06/08/17 14:15 07/08/17 14:14 Piperacillin Sod/ Tazobactam Sod 4.5 gm/Sodium Chloride 120 ml @ 30 mls/hr Q8H IV 06/09/17 00:00 06/16/17 00:00 06/11/17 07:58 30 MLS/HR Insulin Aspart (novoLOG ASPART) SLIDING SCALE G... ACHS SC 06/10/17 23:15 07/10/17 23:14 06/11/17 08:53 12 UNITS Glucose (Glucose 40% Gel) 15-30 GRAMS 15 GRAMS... UD PRN PO 06/11/17 09:00 07/11/17 08:59 Glucose (Glucose Chew Tab) 4-8 Tablets 4 Tabl... UD PRN PO 06/11/17 09:00 07/11/17 08:59 Dextrose (Dextrose 50% 50ML Syringe) 25-50ML OF 50% DW IV FOR... UD PRN IV 06/11/17 09:00 07/11/17 08:59 Glucagon (Glucagon Inj) 1 mg UD PRN SQ 06/11/17 09:00 07/11/17 08:59 Family History Cancer Diabetes mellitus Heart disease Hypertension Kidney disease Kidney stones Negative for CKD/ESRD Social History Smoking Status: Never Smoker Smokeless Tobacco Use: No Alcohol Use: none Drug Use: none Marital Status: single Housing Status: lives alone Occupation: employed Single. 3 sons in good health. Unemployed. Previously worked in [employer]. Denies tobacco or alcohol use. Review of Systems Constitutional: No fever Respiratory: No cough, No sputum Cardiovascular: No chest pain Abdomen: No pain, No nausea, No vomiting Genitourinary - Male: + urinary hesitancy, No dysuria A complete review of systems was performed. Pertinent positives are noted above. All other systems are negative. Physical Exam Date Time Temp Pulse Resp B/P (MAP) Pulse Ox O2 Delivery O2 Flow Rate FiO2 06/11/17 08:00 Room Air 06/11/17 07:23 36.3 78 18 147/81 (103) 94 Room Air 06/11/17 00:00 96 Room Air 06/10/17 22:52 36.6 84 20 115/68 (84) 92 Room Air 06/10/17 17:30 36.7 89 20 125/76 (92) 93 Room Air 06/10/17 16:30 36.9 81 20 126/76 (93) 91 Room Air 06/10/17 16:00 Room Air 06/10/17 15:30 36.8 89 18 114/70 (85) 94 Room Air 06/10/17 15:10 36.6 93 18 117/68 (84) 92 Room Air 06/10/17 14:50 96 Room Air 06/10/17 14:30 37.0 99 20 134/81 (98) 92 Room Air 06/10/17 14:06 98 Nasal Cannula 4.0 06/10/17 14:05 36.9 88 16 128/73 (91) 98 Nasal Cannula 4.0 06/10/17 13:40 36.4 88 16 128/72 96 Nasal Cannula 3 06/10/17 13:30 93 16 122/74 96 Nasal Cannula 3 06/10/17 13:20 95 16 134/69 96 Nasal Cannula 3 06/10/17 13:10 92 16 118/68 94 Nasal Cannula 3 06/10/17 13:00 90 16 107/62 96 Oxymask 5 06/10/17 12:53 36.6 91 17 113/75 95 Oxymask 10 General Appearance: no apparent distress, + obese Head: normocephalic, atraumatic Eyes: PERRL, EOMI Neck: no adenopathy Respiratory/Chest: + rales (bilaterally) Cardiovascular: regular rate, rhythm Abdomen/GI: normal bowel sounds, non tender, soft, + distended Extremities/Musculoskelatal: no pedal edema Neurologic/Psych: alert, oriented x 3 Laboratory Results Last 24 Hours Test 06/10/17 13:21 06/10/17 16:48 06/10/17 20:22 06/10/17 22:23 Bedside Glucose 99 mg/dl 193 mg/dl 373 mg/dl 396 mg/dl Test 06/11/17 00:21 06/11/17 05:18 06/11/17 07:36 06/11/17 10:40 Bedside Glucose 360 mg/dl 227 mg/dl White Blood Count 16.72 K/uL Red Blood Count 3.38 M/uL Hemoglobin 9.4 g/dL Hematocrit 27.3 % Mean Corpuscular Volume 80.8 fL Mean Corpuscular Hemoglobin 27.8 pg Mean Corpuscular Hemoglobin Concent 34.4 g/dl Platelet Count 384 K/uL Mean Platelet Volume 9.5 fL Neutrophils (%) (Auto) 91.3 % Lymphocytes (%) (Auto) 4.2 % Monocytes (%) (Auto) 2.8 % Eosinophils (%) (Auto) 0.0 % Basophils (%) (Auto) 0.1 % Neutrophils # (Auto) 15.28 K/uL Lymphocytes # (Auto) 0.71 K/uL Monocytes # (Auto) 0.46 K/uL Eosinophils # (Auto) 0.00 K/uL Basophils # (Auto) 0.01 K/uL RDW Standard Deviation 42.8 fL RDW Coefficient of Variation 14.5 % Immature Granulocyte % (Auto) 1.6 % Immature Granulocyte # (Auto) 0.26 K/uL Sodium Level 128 mmol/L Potassium Level 4.5 mmol/L Chloride Level 101 mmol/L Carbon Dioxide Level 20 mmol/L Anion Gap 7.0 mmol/L Blood Urea Nitrogen 45 mg/dl Creatinine 1.96 mg/dl Est Creatinine Clear Calc Drug Dose 45.8 ml/min Estimated GFR () 41.8 Estimated GFR (Non- 36.1 BUN/Creatinine Ratio 23.0 Random Glucose 228 mg/dl Calcium Level 7.8 mg/dl Total Bilirubin 3.9 mg/dl Direct Bilirubin 3.0 mg/dl Aspartate Amino Transf (AST/SGOT) 31 U/L Alanine Aminotransferase (ALT/SGPT) 34 U/L Alkaline Phosphatase 342 U/L Total Protein 7.1 gm/dl Albumin 1.4 gm/dl Impression (1) LINDSEY (acute kidney injury) (2) Chronic kidney disease, stage 3 (moderate) (3) Pneumonia (4) Hyponatremia (5) Hyperbilirubinemia (6) Anemia (7) Diabetes mellitus with hyperglycemia (8) Proteinuria Recommendations ACUTE KIDNEY INJURY: -- Kidney function recovering with medical management (IV antibiotics and hydration). Electrolyte balance is acceptable. No acute indication for HD -- Pulmonology has ordered immunologic testing. Hepatitis/HIV/TB are negative. CHANEL is pending. Will add ANCA and AGBM. -- Abdominal CT 06/04/17 negative for obstruction. Patient may have renal cysts. Cysts were noted on previous renal US studies -- Monitor serial PRP CHRONIC KIDNEY DISEASE: -- Baseline creatinine has been ~ 1.6. Patient likely has underlying diabetic nephropathy HYPONATREMIA: -- Clinically euvolemic. Will check serum and urine osmolality. Monitor PRP. May have an element of SIADH associated w/ pulmonary infection PULMONARY: -- RML, RLL consolidation and LLL cavitary lesion. Possible aspiration pneumonia. Currently on Zosyn therapy. Pulmonology is managing
--- NOTE | 2017-06-11 12:19 | Pulmonology Progress Note ---
Pulmonary Progress Note Date of Service Jun 11, 2017. Attending Dr. Mtz Subjective Patient sitting up in chair doing well today with only mild/minimally productive sputum. Objective Patient sitting up in a chair with no signs of respiratory insufficiency: mild/ minimal sputum production for suction but denies fever, chills, pleurisy or classic cardiac chest pain Vital signs: Stable on room air Respiratory: Mild rhonchi appreciated at the bases bilaterally Cardiac: S1-S2 regular rate and rhythm Abdomen: Positive bowel sounds HEENT: Scleral icterus [employer] INSPECTOR: Cranial nerves II through XII grossly intact, strength 5 out of 5 bilaterally PmHx: DM2, GOUT, HTN, anemia, protuneria, BPH, CKD and Dyslipidemia. He was seen by his PCP and treated with clarithromycin 50mmg BID for diagnosed with LLL pna. Work-Up WBC: 16K ESR: >90 Cr: 5.29---1.61---1.731.96 T Bili: 6.93.9 CRP: 16.60 Pro-calcitonin: 2.88 Albumin: 2.21.4 Hepatitis C antibody: Negative Haptaglobin: >380 Alpha-1 antitrypsin level: >379 Anti-Aftab: <1:20 24 hour urine protein: 1140 mg/24hrs QuantiFERON gold: Negative Pending: CHANEL screen HIV Sputum culture Medications: -1-.- - - -[id number]-c-i-n- -5-0-0- -m-g- -d-a-i-l-y- 2. Zosyn IV 3. Robitussin-AC 10 mL 4. Ventolin HFA every 4 as needed 5. Heparin subcu 5000 units every 8 hours Assessment & Plan 62-year-old male admitted with bilateral lower lobe infiltrative process and cavitary nodule: 1. Aspiration Pna: Flexible/EBUS bronchoscopy is consistent with aspiration pna but the microbiology also notes Staph Aureus with cultures pending. At this time I suggest Vancomycin is added until the Staph resistance comes back. I also agree with a swallow study. I suggest a 10 day course of abx for the patient's aspiration as there are some cavitary changes which can be completed with Augmentin. Pulmonary will sign-off at this time Data Medications: Current Inpatient Medications Medications (Trade) Dose Ordered Sig/Camron Route Start Time Stop Time Status Last Admin Dose Admin Heparin Sodium (Porcine) (Heparin Sq 5000 Unit/0.5ml) 5,000 unit Q8 SQ 06/04/17 22:00 07/04/17 21:59 Future hold 06/11/17 06:26 5,000 UNIT Acetaminophen (Tylenol Tab) 650 mg Q4H PRN PO 06/04/17 20:15 07/04/17 20:14 06/09/17 08:16 650 MG Al Hydrox/Mg Hydrox/Simethicone (Maalox Max Susp) 15 ml Q4H PRN PO 06/04/17 20:15 07/04/17 20:14 Magnesium Hydroxide (Milk Of Magnesia Susp) 30 ml Q12H PRN PO 06/04/17 20:15 07/04/17 20:14 Ondansetron HCl (Zofran Inj) 4 mg Q6H PRN IV 06/04/17 20:15 07/04/17 20:14 Polyethylene (Miralax Powder Packet) 17 gm DAILY PRN PO 06/04/17 20:15 07/04/17 20:14 Menthol (Nice Melida) 1 melida PRN PRN MELIDA 06/05/17 16:00 07/05/17 15:59 06/05/17 17:02 24 MELIDA Albuterol (Ventolin Hfa Inhaler) 2 puffs Q4H PRN INH 06/05/17 18:00 07/05/17 17:59 06/06/17 08:18 2 PUFFS Codeine Phosphate/ Guaifenesin (Robitussin-AC Sugar Free Syrup) 10 ml HS PO 06/06/17 21:00 07/06/17 20:59 06/10/17 20:34 10 ML Miscellaneous Information (Consult) 1 ea UD PRN N/A 06/08/17 14:15 07/08/17 14:14 Piperacillin Sod/ Tazobactam Sod 4.5 gm/Sodium Chloride 120 ml @ 30 mls/hr Q8H IV 06/09/17 00:00 06/16/17 00:00 06/11/17 07:58 30 MLS/HR Insulin Aspart (novoLOG ASPART) SLIDING SCALE G... ACHS SC 06/10/17 23:15 07/10/17 23:14 06/11/17 08:53 12 UNITS Glucose (Glucose 40% Gel) 15-30 GRAMS 15 GRAMS... UD PRN PO 06/11/17 09:00 07/11/17 08:59 Glucose (Glucose Chew Tab) 4-8 Tablets 4 Tabl... UD PRN PO 06/11/17 09:00 07/11/17 08:59 Dextrose (Dextrose 50% 50ML Syringe) 25-50ML OF 50% DW IV FOR... UD PRN IV 06/11/17 09:00 07/11/17 08:59 Glucagon (Glucagon Inj) 1 mg UD PRN SQ 06/11/17 09:00 07/11/17 08:59 Vital Signs: Date Time Temp Pulse Resp B/P (MAP) Pulse Ox O2 Delivery O2 Flow Rate FiO2 06/11/17 08:00 Room Air 06/11/17 07:23 36.3 78 18 147/81 (103) 94 Room Air 06/11/17 00:00 96 Room Air 06/10/17 22:52 36.6 84 20 115/68 (84) 92 Room Air 06/10/17 17:30 36.7 89 20 125/76 (92) 93 Room Air 06/10/17 16:30 36.9 81 20 126/76 (93) 91 Room Air 06/10/17 16:00 Room Air 06/10/17 15:30 36.8 89 18 114/70 (85) 94 Room Air 06/10/17 15:10 36.6 93 18 117/68 (84) 92 Room Air 06/10/17 14:50 96 Room Air 06/10/17 14:30 37.0 99 20 134/81 (98) 92 Room Air 06/10/17 14:06 98 Nasal Cannula 4.0 06/10/17 14:05 36.9 88 16 128/73 (91) 98 Nasal Cannula 4.0 06/10/17 13:40 36.4 88 16 128/72 96 Nasal Cannula 3 06/10/17 13:30 93 16 122/74 96 Nasal Cannula 3 06/10/17 13:20 95 16 134/69 96 Nasal Cannula 3 06/10/17 13:10 92 16 118/68 94 Nasal Cannula 3 06/10/17 13:00 90 16 107/62 96 Oxymask 5 06/10/17 12:53 36.6 91 17 113/75 95 Oxymask 10 Laboratory Results: Last 24 Hours Test 06/10/17 13:21 06/10/17 16:48 06/10/17 20:22 06/10/17 22:23 Bedside Glucose 99 mg/dl 193 mg/dl 373 mg/dl 396 mg/dl Test 06/11/17 00:21 06/11/17 05:18 06/11/17 07:36 06/11/17 10:40 Bedside Glucose 360 mg/dl 227 mg/dl White Blood Count 16.72 K/uL Red Blood Count 3.38 M/uL Hemoglobin 9.4 g/dL Hematocrit 27.3 % Mean Corpuscular Volume 80.8 fL Mean Corpuscular Hemoglobin 27.8 pg Mean Corpuscular Hemoglobin Concent 34.4 g/dl Platelet Count 384 K/uL Mean Platelet Volume 9.5 fL Neutrophils (%) (Auto) 91.3 % Lymphocytes (%) (Auto) 4.2 % Monocytes (%) (Auto) 2.8 % Eosinophils (%) (Auto) 0.0 % Basophils (%) (Auto) 0.1 % Neutrophils # (Auto) 15.28 K/uL Lymphocytes # (Auto) 0.71 K/uL Monocytes # (Auto) 0.46 K/uL Eosinophils # (Auto) 0.00 K/uL Basophils # (Auto) 0.01 K/uL RDW Standard Deviation 42.8 fL RDW Coefficient of Variation 14.5 % Immature Granulocyte % (Auto) 1.6 % Immature Granulocyte # (Auto) 0.26 K/uL Sodium Level 128 mmol/L Potassium Level 4.5 mmol/L Chloride Level 101 mmol/L Carbon Dioxide Level 20 mmol/L Anion Gap 7.0 mmol/L Blood Urea Nitrogen 45 mg/dl Creatinine 1.96 mg/dl Est Creatinine Clear Calc Drug Dose 45.8 ml/min Estimated GFR () 41.8 Estimated GFR (Non- 36.1 BUN/Creatinine Ratio 23.0 Random Glucose 228 mg/dl Calcium Level 7.8 mg/dl Total Bilirubin 3.9 mg/dl Direct Bilirubin 3.0 mg/dl Aspartate Amino Transf (AST/SGOT) 31 U/L Alanine Aminotransferase (ALT/SGPT) 34 U/L Alkaline Phosphatase 342 U/L Total Protein 7.1 gm/dl Albumin 1.4 gm/dl Osmolality 298 mOsm/kg Test 06/11/17 11:35 06/11/17 11:49 Urine Color DK YELLOW Urine Appearance CLEAR Urine pH 5.0 Urine Specific [place] 1.021 Urine Protein 1+ Urine Glucose (UA) NEG Urine Ketones NEG Urine Occult Blood NEG Urine Nitrite NEG Urine Bilirubin 1+ Urine Urobilinogen NEG Urine Leukocyte Esterase NEG Urine WBC (Auto) 1-5 /hpf Urine RBC (Auto) 10-30 /hpf Urine Hyaline Casts (Auto) 1-5 /lpf Urine Epithelial Cells (Auto) 5-10 /lpf Urine Bacteria (Auto) NEG Urine Osmolality 422 mOms/kg Bedside Glucose 317 mg/dl
[2017-06-11] MEDS ORDERED: VANCOMYCIN IV 2,500 MG in SODIUM CHLORIDE 0.9% 500ML 500 ML IV ONE (13:15)
[2017-06-11] MEDS ORDERED: VANCOMYCIN CONSULT ACTIVE PRN (13:15)
--- NOTE | 2017-06-11 13:52 | Pharmacy Progress Note ---
Pharmacy Antibiotic Consult Date of Service: Jun 11, 2017. Pharmacy Dosing Scope Pharmacy is consulted to initiate vancomycin IV dosing therapy, order appropriate labs and adjust drug dose/frequency. Subjective The patient is a 62 year old male admitted on Jun 04, 2017 at 20:19. Objective Height (Feet): 5 Height (Inches): 7.00 Weight (Kilograms): 102.800 Lab Results (24hrs): Test 06/11/17 05:18 06/11/17 07:36 06/11/17 10:40 06/11/17 11:35 White Blood Count 16.72 K/uL (4.8-10.8) Red Blood Count 3.38 M/uL (4.7-6.1) Hemoglobin 9.4 g/dL (14.0-18.0) Hematocrit 27.3 % (42-52) Mean Corpuscular Volume 80.8 fL (80-100) Mean Corpuscular Hemoglobin 27.8 pg (25-34) Mean Corpuscular Hemoglobin Concent 34.4 g/dl (32-36) Platelet Count 384 K/uL (130-400) Mean Platelet Volume 9.5 fL (7.4-10.4) Neutrophils (%) (Auto) 91.3 % Lymphocytes (%) (Auto) 4.2 % Monocytes (%) (Auto) 2.8 % Eosinophils (%) (Auto) 0.0 % Basophils (%) (Auto) 0.1 % Neutrophils # (Auto) 15.28 K/uL (1.4-6.5) Lymphocytes # (Auto) 0.71 K/uL (1.2-3.4) Monocytes # (Auto) 0.46 K/uL (0.11-0.59) Eosinophils # (Auto) 0.00 K/uL (0-0.5) Basophils # (Auto) 0.01 K/uL (0-0.2) RDW Standard Deviation 42.8 fL (36.4-46.3) RDW Coefficient of Variation 14.5 % (11.5-14.5) Immature Granulocyte % (Auto) 1.6 % Immature Granulocyte # (Auto) 0.26 K/uL (0.00-0.02) Sodium Level 128 mmol/L (136-145) Potassium Level 4.5 mmol/L (3.5-5.1) Chloride Level 101 mmol/L (98-107) Carbon Dioxide Level 20 mmol/L (21-32) Anion Gap 7.0 mmol/L (3-11) Blood Urea Nitrogen 45 mg/dl (7-18) Creatinine 1.96 mg/dl (0.60-1.40) Est Creatinine Clear Calc Drug Dose 45.8 ml/min Estimated GFR () 41.8 Estimated GFR (Non- 36.1 BUN/Creatinine Ratio 23.0 (10-20) Random Glucose 228 mg/dl (70-99) Calcium Level 7.8 mg/dl (8.5-10.1) Total Bilirubin 3.9 mg/dl (0.2-1) Direct Bilirubin 3.0 mg/dl (0-0.2) Aspartate Amino Transf (AST/SGOT) 31 U/L (15-37) Alanine Aminotransferase (ALT/SGPT) 34 U/L (12-78) Alkaline Phosphatase 342 U/L (45-117) Total Protein 7.1 gm/dl (6.4-8.2) Albumin 1.4 gm/dl (3.4-5.0) Bedside Glucose 227 mg/dl (70-99) Osmolality 298 mOsm/kg (280-300) Urine Color DK YELLOW Urine Appearance CLEAR (CLEAR) Urine pH 5.0 (4.5-7.5) Urine Specific [place] 1.021 (1.000-1.030) Urine Protein 1+ (NEG) Urine Glucose (UA) NEG (NEG) Urine Ketones NEG (NEG) Urine Occult Blood NEG (NEG) Urine Nitrite NEG (NEG) Urine Bilirubin 1+ (NEG) Urine Urobilinogen NEG (NEG) Urine Leukocyte Esterase NEG (NEG) Urine WBC (Auto) 1-5 /hpf (0-5) Urine RBC (Auto) 10-30 /hpf (0-4) Urine Hyaline Casts (Auto) 1-5 /lpf (0-5) Urine Epithelial Cells (Auto) 5-10 /lpf (0-5) Urine Bacteria (Auto) NEG (NEG) Urine Osmolality 422 mOms/kg (500-800) Test 06/11/17 11:49 Bedside Glucose 317 mg/dl (70-99) Micro Results: Date/Time Source Procedure Growth Status 06/04/17 21:45 Blood Blood Culture - Final NO GROWTH Complete 06/04/17 21:40 Blood Blood Culture - Final NO GROWTH Complete 06/10/17 12:16 Bronchial Washings Right Lower Lobe Fungal Smear - Final Resulted 06/10/17 12:16 Bronchial Washings Right Lower Lobe Fungal Culture Pending Resulted 06/10/17 12:16 Bronchial Washings Right Lower Lobe Acid Fast Stain Pending Received 06/10/17 12:16 Bronchial Washings Right Lower Lobe Mycobacterial Culture Pending Received 06/10/17 12:16 Bronchial Washings Right Lower Lobe Gram Stain - Final Resulted 06/10/17 12:16 Bronchoalveolar Lavage Culture - Preliminary Staphylococcus Aureus Resulted 06/09/17 06:00 Sputum Expectorated Sputum Acid Fast Stain - Final Resulted 06/09/17 06:00 Sputum Expectorated Sputum Mycobacterial Culture Pending Resulted 06/09/17 06:00 Sputum Expectorated Sputum Gram Stain - Final Complete 06/09/17 06:00 Sputum Expectorated Sputum Sputum Culture - Final LIGHT NORMAL MARTHA. Complete 06/04/17 20:04 Urine , Clean Catch Urine Culture - Final THREE TYPES OF ORGANISMS PRESENT, ALL... Complete Assessment & Plan Assessment: 62 yo male admitted with bilateral pneumonia and cavitary nodule WBC 17/ Afebrile, Procal on 06/08 2.88 Bronchoscopy on 06/10 growing S. aureus Starting vancomycin until sensitivities result, patient also on zosyn Plan: Loading dose: 2500 mg (25 mg/kg) IV X 1 dose then: 1250 mg IV every 20 hours. Population PK: SCr 1.96, CrCl 45.8, Ke 0.042, T1/2~ 16 hours Lower mg/kg given patients risk of accumulation with BMI >35 Goal trough level estimate: between 15-20 mcg/mL. Will wait to order trough pending continuation/renal function. Pharmacy will continue to follow and will adjust dose/frequency as necessary. Thank you
--- NOTE | 2017-06-11 14:12 | Anesthesiology Progress Note ---
Anesthesia Post Op Note Date & Time Jun 11, 2017 at 14:12 Vital Signs Pain Intensity: 0.0 Vital Signs Past 12 Hours Date Time Temp Pulse Resp B/P (MAP) Pulse Ox O2 Delivery O2 Flow Rate FiO2 06/11/17 08:00 Room Air 06/11/17 07:23 36.3 78 18 147/81 (103) 94 Room Air Notes Mental Status: alert / awake / arousable, participated in evaluation Pt Amnestic to Procedure: Yes Nausea / Vomiting: adequately controlled Pain: adequately controlled Airway Patency, RR, SpO2: stable & adequate BP & HR: stable & adequate Hydration State: stable & adequate Anesthetic Complications: no major complications apparent
[2017-06-11 14:21] VITALS: BP 118/70; PULSE 72; TEMP 37.2; O2SAT 92
[2017-06-11 15:02] VITALS: Ht 170.2 cm; Wt 102.8 kg
--- NOTE | 2017-06-11 18:12 | GASTROENTEROLOGY PROGRESS NOTE ---
DATE: 06/11/2017 HISTORY OF PRESENT ILLNESS: Chart reviewed, patient examined. The patient underwent bronchoscopy EBUS yesterday with FNA of lymph nodes which showed no malignant cells seen with lymph node tissue identified. Second lymph node sampling showed no malignant cells and mostly bloody. There were numerous inflammatory cells seen on bronchial washings, but no malignant cells seen. The patient actually is clinically feeling better without chest pain, shortness of breath. CURRENT MEDICATIONS: Include vancomycin, insulin, Zosyn, p.r.n. meds, albuterol inhaler p.r.n. ALLERGIES: No known drug allergies. PHYSICAL EXAMINATION: VITAL SIGNS: Today afebrile 37.2, heart rate 72, respirations 18, blood pressure 118/70, room air 92%. REVIEW OF SYSTEMS: Otherwise noncontributory based on 13-point exam. The patient has no abdominal pain, is tolerating oral intake well and did not have a bowel movement yesterday, but had a loose stool the day before that was nonbloody. PHYSICAL EXAMINATION: GENERAL: The patient is awake, alert and oriented x3. Sclerae are minimally icteric. HEART: Normal S1, S2. LUNGS: Clear to auscultation with decreased breath sounds noted at both bases. ABDOMEN: Soft, nontender, nondistended with good bowel sounds. EXTREMITIES: With trace edema. RECTAL: Deferred. IMPRESSION AND PLAN: The patient's laboratory studies today show a decreasing white count down to 16.7 from 18.2, hemoglobin remained stable at 9.4, although MCV is slightly low. Serum chemistries show that the bilirubin is decreasing and is down to 3.9 with direct of 3.0, AST 31, ALT 34, both normal, although alkaline phosphatase has slightly increased to 342 from 335 yesterday. Blood sugars remain elevated in the 200-300 range. BUN and creatinine 45 and 1.96. To-date AMA has been negative. CHANEL is pending. TB test negative. PLAN: The patient's liver tests are trending down over all with no specific chronic metabolic disorder identified or marker of viral infection to-date. I suspect that this is related to the patient's lower lobe pneumonia as well as his infectious state and would continue to observe these over time. Presently, there is no evidence to suggest biliary obstruction by way of abdominal pain, nausea, vomiting and imaging studies since admission failed to demonstrate ductal dilation. There are gallstones; however. Acute cholecystitis; however, is not suspected. Would follow LFTs daily for trend and we will follow with you. All questions answered.
--- NOTE | 2017-06-11 18:40 | Family Medicine Progress Note ---
Progress Note Date of Service Jun 11, 2017. Subjective Pt evaluation today including: conversation w/ patient, conversation w/ family , physical exam, chart review, lab review, review of studies Pain: Denies pain PO Intake: Toelrating well Voiding: no voiding problems Patient reports he is feeling much better today. He is sitting up, conversing with his brother and states he feels his energy is returning to him. He also notes he believes his jaundice is improving Constitutional: No fever, No chills Respiratory: + cough, + sputum, + wheezing Cardiovascular: No chest pain Abdomen: No pain, No nausea, No vomiting Neurologic: No memory loss All Other Systems: Reviewed and Negative Medications Current Inpatient Medications Medications (Trade) Dose Ordered Sig/Camron Route Start Time Stop Time Status Last Admin Dose Admin Heparin Sodium (Porcine) (Heparin Sq 5000 Unit/0.5ml) 5,000 unit Q8 SQ 06/04/17 22:00 07/04/17 21:59 Future hold 06/11/17 14:59 5,000 UNIT Acetaminophen (Tylenol Tab) 650 mg Q4H PRN PO 06/04/17 20:15 07/04/17 20:14 06/09/17 08:16 650 MG Al Hydrox/Mg Hydrox/Simethicone (Maalox Max Susp) 15 ml Q4H PRN PO 06/04/17 20:15 07/04/17 20:14 Magnesium Hydroxide (Milk Of Magnesia Susp) 30 ml Q12H PRN PO 06/04/17 20:15 07/04/17 20:14 Ondansetron HCl (Zofran Inj) 4 mg Q6H PRN IV 06/04/17 20:15 07/04/17 20:14 Polyethylene (Miralax Powder Packet) 17 gm DAILY PRN PO 06/04/17 20:15 07/04/17 20:14 06/11/17 17:23 17 GM Menthol (Nice Melida) 1 melida PRN PRN MELIDA 06/05/17 16:00 07/05/17 15:59 06/05/17 17:02 24 MELIDA Albuterol (Ventolin Hfa Inhaler) 2 puffs Q4H PRN INH 06/05/17 18:00 07/05/17 17:59 06/06/17 08:18 2 PUFFS Codeine Phosphate/ Guaifenesin (Robitussin-AC Sugar Free Syrup) 10 ml HS PO 06/06/17 21:00 07/06/17 20:59 06/10/17 20:34 10 ML Miscellaneous Information (Consult) 1 ea UD PRN N/A 06/08/17 14:15 07/08/17 14:14 Insulin Aspart (novoLOG ASPART) SLIDING SCALE G... ACHS SC 06/10/17 23:15 07/10/17 23:14 06/11/17 17:26 23 UNITS Glucose (Glucose 40% Gel) 15-30 GRAMS 15 GRAMS... UD PRN PO 06/11/17 09:00 07/11/17 08:59 Glucose (Glucose Chew Tab) 4-8 Tablets 4 Tabl... UD PRN PO 06/11/17 09:00 07/11/17 08:59 Dextrose (Dextrose 50% 50ML Syringe) 25-50ML OF 50% DW IV FOR... UD PRN IV 06/11/17 09:00 07/11/17 08:59 Glucagon (Glucagon Inj) 1 mg UD PRN SQ 06/11/17 09:00 07/11/17 08:59 Miscellaneous Information (Consult) 1 ea UD PRN N/A 06/11/17 13:15 07/11/17 13:14 Vancomycin HCl 1250 mg/Sodium Chloride 275 ml @ 125 mls/hr Q20H IV 06/12/17 07:00 06/19/17 06:59 Insulin Glargine (Lantus Solostar Pen) 15 units BID SC 06/11/17 20:00 07/11/17 19:59 UNV Amoxicillin/ Clavulanate Potassium (Augmentin Tab) 875 mg BIDM PO 06/12/17 08:00 06/19/17 07:59 UNV Objective Vital Signs Date Time Temp Pulse Resp B/P (MAP) Pulse Ox O2 Delivery O2 Flow Rate FiO2 06/11/17 15:30 Room Air 06/11/17 14:21 37.2 72 18 118/70 (86) 92 Room Air 06/11/17 08:00 Room Air 06/11/17 07:23 36.3 78 18 147/81 (103) 94 Room Air 06/11/17 00:00 96 Room Air 06/10/17 22:52 36.6 84 20 115/68 (84) 92 Room Air Physical Exam General Appearance: WD/WN, no apparent distress Eyes: PERRL, + abnormal sclerae exam (icterus) ENT: hearing grossly normal Respiratory/Chest: lungs clear, normal breath sounds, no respiratory distress Cardiovascular: regular rate, rhythm, no murmur Abdomen: normal bowel sounds, non tender, soft Extremities: normal range of motion, non-tender, normal inspection, no pedal edema Neurologic/Psychiatric: paper supervisor II-XII nml as tested, no motor/sensory deficits, alert, normal mood/affect, oriented x 3 Skin: + jaundice Laboratory Results Last Resulted 06/11/17 05:18 Red Blood Count 3.38, Mean Corpuscular Volume 80.8, Mean Corpuscular Hemoglobin 27.8, Mean Corpuscular Hemoglobin Concent 34.4, Mean Platelet Volume 9.5, Neutrophils (%) (Auto) 91.3, Lymphocytes (%) (Auto) 4.2, Monocytes (%) (Auto) 2.8, Eosinophils (%) (Auto) 0.0, Basophils (%) (Auto) 0.1, Neutrophils # (Auto) 15.28, Lymphocytes # (Auto) 0.71, Monocytes # (Auto) 0.46, Eosinophils # (Auto) 0.00, Basophils # (Auto) 0.01 Last Resulted 06/11/17 05:18 Assessment and Plan 62 yo male admitted on [id number] for sepsis 2/2 multifocal PNA with cavitary lesion unresponsive to outpatient therapy and acute kidney injury. Admission has been complicated by Hyperbilirubinemia/abnormal LFTs. PMH includes T2DM on oral agents, HTN, gout, s/p appendectomy. Sepsis secondary to Multifocal pneumonia: - Per patient, diagnosed with PNA around 30Mar, started on clarithromycin, but had ongoing cough and fatigue. - CT chest showed multifocal pneumonia, cavitary lesion, possible septic embolus , as well as calcified pleural plaques. - 6 days of zosyn completed. Azithromycin held for potential contribution to abnormal LFTs - Negative blood cultures. - Pulm consult: bronch showed aspiration of gastric contents. Speech eval ordered and normal. - Aspiration contents growing S. aureus-->started on Vancomycin until resistance is resulted. - 10 day course of augmentin to start tomorrow - Would benefit from follow-up CXR vs CT chest (or even bronchoscopy) in one month from discharge, sooner depending on how he continues to respond to the above. - TB labs negative. Vasculitic panel ordered Hyperbilirubinemia & Elevated LFTs: -AST mildly elevated, but tbili and dbili also elevated. Lipase normal. Hepatitis A, B, C negative. Coags normal -Hepatic steatosis seen on CT chest. Gallstones seen on CT a/p. -Patient appears jaundiced but still abdominally asymptomatic. -GI consulted: ordering intrinsic liver labs -Echo ordered, ruled out vegetations as possible source of emboli -Potential sources include elevation from his zosyn, Gilbert's syndrome, or fatty liver disease. RUQ u/s showed gallstones without evidence of obstruction. -Other possible cause includes adverse reaction to macrolide antibiotics Acute kidney injury, - Arrival Cr 5.29, decreased to baseline with hydration, however slight bump in Cr to 1.9 today - Baseline Cr is around 1.3-1.7. Question of pre-renal source due to hypovolemia on top of some post-renal (prostate) source. - Nephro consulted: Will add ANCA and AGBM. Patient may have renal cysts. Cysts were noted on previous renal US studies - Monitor serial PRP Hyponatremia, resolved - Arrival Na 127, improved to 137 with IVF. Likely due to dehydration. - Clinically euvolemic. Will check serum and urine osmolality. Monitor PRP. May have an element of SIADH associated w/ pulmonary infection Indeterminate right renal lesion: -Seen on CT a/p, possibly cyst as seen on prior [id number] u/s. Recommended PCP f/u for same. HLD: Continue rosuvastatin. Gout: Holding allopurinol due to LINDSEY. Code: Full code. DVTP: Heparin q8h. Dispo: med/surg. Resident Tracking Resident Involvement: Resident Care Provided Care Provided: Adult Hospital Medicine Reviewed: Pt Seen/Exam by Me History no new concerns Constitutional: denies: fever Respiratory: negative: short of breath Cardiovascular: denies chest pain Gastrointestinal/Abdominal: negative: abdominal pain General Appearance: no apparent distress Respiratory: lungs clear, no respiratory distress Cardiovascular: regular rate, rhythm Gastrointestinal: normal bowel sounds, non tender, soft Skin Characteristics: jaundice Assessment/Plan Resident Physician Supervision Note: I independently interviewed and examined the patient and verified the cervantes history and physical, reviewed labs and image studies, discussed the case with the resident Dr. Hancock and agree with the findings and care plan.
[2017-06-11] MEDS: AMOXICILLIN/CLAVULANATE TAB 875 MG TAB PO SCH (19:00)
[2017-06-11] MEDS: INSULIN GLARGINE SOLOSTAR 100 UNITS/ML 3 ML PEN SC SCH (20:46)
[2017-06-11] MEDS: GUAIFENESIN/CODEINE 100MG/10MG 5ML UDC PO SCH (20:51)
[2017-06-11 22:31] LABS: ANA SCREEN TC 249X POSITIVE (NEGATIVE)
[2017-06-11 23:14] VITALS: BP 149/76; PULSE 72; TEMP 36.5; O2SAT 94
[2017-06-12] MEDS: ACETAMINOPHEN 325 MG TAB PO PRN (02:17)
[2017-06-12] MEDS: HEPARIN SOD 5000 UNIT/0.5 ML CARP SQ SCH ×2 (05:36→15:13)
[2017-06-12 05:56] LABS: BASO % 0.1 %; BASO ABS # 0.02 K/uL (0-0.2); EOS % 0.3 %; EOS ABS # 0.05 K/uL (0-0.5); HEMATOCRIT 29.5 % (42-52); IG# 0.25 K/uL (0.00-0.02); LYMPH % 8.5 %; LYMPH ABS # 1.28 K/uL (1.2-3.4); MEAN CELL VOLUME 81.5 fL (80-100); MEAN CORPUSCULAR HEMOGLOBIN 27.6 pg (25-34); MEAN CORPUSCULAR HGB CONC 33.9 g/dl (32-36); MEAN PLATELET VOLUME 9.5 fL (7.4-10.4); MONO ABS # 0.76 K/uL (0.11-0.59); NEUT % 84.4 %; NEUT ABS # 12.76 K/uL (1.4-6.5); PLATELET COUNT 452 K/uL (130-400); RED CELL DISTRIBUTION WIDTH CV 14.5 % (11.5-14.5); RED CELL DISTRIBUTION WIDTH SD 43.4 fL (36.4-46.3); WHITE BLOOD COUNT 15.12 K/uL (4.8-10.8)
[2017-06-12 06:26] LABS: ALBUMIN 1.6 gm/dl (3.4-5.0); CALCIUM 7.6 mg/dl (8.5-10.1); CREATININE 1.97 mg/dl (0.60-1.40); POTASSIUM 4.5 mmol/L (3.5-5.1)
[2017-06-12 07:03] VITALS: BP 150/94; PULSE 72; TEMP 36.5; O2SAT 95
[2017-06-12] MEDS: AMOXICILLIN/CLAVULANATE TAB 875 MG TAB PO SCH (07:43)
[2017-06-12] MEDS: ALBUTEROL HFA 8 GM INHALER INH PRN (07:43)
[2017-06-12] MEDS: VANCOMYCIN IV 1,250 MG in SODIUM CHLORIDE 0.9% 250ML 250 ML IV SCH ×2 (07:43→08:14)
[2017-06-12] MEDS: INSULIN GLARGINE SOLOSTAR 100 UNITS/ML 3 ML PEN SC SCH (07:44)
[2017-06-12] MEDS: INSULIN ASPART 100 UNITS/ML 3 ML PEN SC SCH ×2 (08:15→12:20)
--- NOTE | 2017-06-12 10:03 | Nephrology Progress Note ---
Nephrology Progress Note Date of Service Jun 12, 2017. Chief Complaint LINDSEY / CKD Subjective Mr. Moon was seen & examined in his hospital room this morning. He reports that his cough and breathing are subjectively improved. He has been transitioned to an oral antibiotic and hopes to be discharged home soon. He voices no new medical concerns. Review of Systems Constitutional: No fever Cardiovascular: No chest pain Respiratory: No dyspnea at rest Abdomen: No pain, No nausea, No vomiting Extremities: No leg edema A complete review of systems was performed. Pertinent positives are noted above. All other systems are negative. Vital Signs Last 8 Hrs Date Time Temp Pulse Resp B/P (MAP) Pulse Ox O2 Delivery O2 Flow Rate FiO2 06/12/17 09:39 Room Air 06/12/17 07:03 36.5 72 20 150/94 (112) 95 Room Air Last Recorded Weight Weight (Kilograms): 102.800 Physical Exam General Appearance: no apparent distress Head: normocephalic, atraumatic Eyes: PERRL, EOMI Neck: no adenopathy Respiratory/Chest: + crackles Cardiovascular: regular rate, rhythm Abdomen/GI: normal bowel sounds, non tender, soft Extremities/Musculoskelatal: no calf tenderness, no pedal edema Neurologic/Psych: alert, oriented x 3 Family History Cancer Diabetes mellitus Heart disease Hypertension Kidney disease Kidney stones Negative for CKD/ESRD Social History Smoking Status: Never smoker Smokeless Tobacco Use: No Alcohol Use: none Drug Use: none Marital Status: single Housing Status: lives alone Occupation: employed Single. 3 sons in good health. Unemployed. 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 Denies tobacco or alcohol use. Laboratory Results Past 24 Hours 06/12/17 05:23 Red Blood Count 3.62, Mean Corpuscular Volume 81.5, Mean Corpuscular Hemoglobin 27.6, Mean Corpuscular Hemoglobin Concent 33.9, Mean Platelet Volume 9.5, Neutrophils (%) (Auto) 84.4, Lymphocytes (%) (Auto) 8.5, Monocytes (%) (Auto) 5.0, Eosinophils (%) (Auto) 0.3, Basophils (%) (Auto) 0.1, Neutrophils # (Auto) 12.76, Lymphocytes # (Auto) 1.28, Monocytes # (Auto) 0.76, Eosinophils # (Auto) 0.05, Basophils # (Auto) 0.02 06/12/17 05:23 Test 06/11/17 10:40 06/11/17 11:35 06/11/17 11:49 06/11/17 16:28 Osmolality 298 mOsm/kg (280-300) Urine Color DK YELLOW Urine Appearance CLEAR (CLEAR) Urine pH 5.0 (4.5-7.5) Urine Specific [place] 1.021 (1.000-1.030) Urine Protein 1+ (NEG) Urine Glucose (UA) NEG (NEG) Urine Ketones NEG (NEG) Urine Occult Blood NEG (NEG) Urine Nitrite NEG (NEG) Urine Bilirubin 1+ (NEG) Urine Urobilinogen NEG (NEG) Urine Leukocyte Esterase NEG (NEG) Urine WBC (Auto) 1-5 /hpf (0-5) Urine RBC (Auto) 10-30 /hpf (0-4) Urine Hyaline Casts (Auto) 1-5 /lpf (0-5) Urine Epithelial Cells (Auto) 5-10 /lpf (0-5) Urine Bacteria (Auto) NEG (NEG) Urine Osmolality 422 mOms/kg (500-800) Bedside Glucose 317 mg/dl (70-99) 276 mg/dl (70-99) Test 06/11/17 20:24 06/12/17 05:23 06/12/17 07:32 Bedside Glucose 191 mg/dl (70-99) 133 mg/dl (70-99) White Blood Count 15.12 K/uL (4.8-10.8) Red Blood Count 3.62 M/uL (4.7-6.1) Hemoglobin 10.0 g/dL (14.0-18.0) Hematocrit 29.5 % (42-52) Mean Corpuscular Volume 81.5 fL (80-100) Mean Corpuscular Hemoglobin 27.6 pg (25-34) Mean Corpuscular Hemoglobin Concent 33.9 g/dl (32-36) Platelet Count 452 K/uL (130-400) Mean Platelet Volume 9.5 fL (7.4-10.4) Neutrophils (%) (Auto) 84.4 % Lymphocytes (%) (Auto) 8.5 % Monocytes (%) (Auto) 5.0 % Eosinophils (%) (Auto) 0.3 % Basophils (%) (Auto) 0.1 % Neutrophils # (Auto) 12.76 K/uL (1.4-6.5) Lymphocytes # (Auto) 1.28 K/uL (1.2-3.4) Monocytes # (Auto) 0.76 K/uL (0.11-0.59) Eosinophils # (Auto) 0.05 K/uL (0-0.5) Basophils # (Auto) 0.02 K/uL (0-0.2) RDW Standard Deviation 43.4 fL (36.4-46.3) RDW Coefficient of Variation 14.5 % (11.5-14.5) Immature Granulocyte % (Auto) 1.7 % Immature Granulocyte # (Auto) 0.25 K/uL (0.00-0.02) Anion Gap 5.0 mmol/L (3-11) Est Creatinine Clear Calc Drug Dose 45.6 ml/min Estimated GFR () 41.6 Estimated GFR (Non- 35.9 BUN/Creatinine Ratio 24.6 (10-20) Calcium Level 7.6 mg/dl (8.5-10.1) Total Bilirubin 2.6 mg/dl (0.2-1) Direct Bilirubin 1.9 mg/dl (0-0.2) Aspartate Amino Transf (AST/SGOT) 48 U/L (15-37) Alanine Aminotransferase (ALT/SGPT) 46 U/L (12-78) Alkaline Phosphatase 386 U/L (45-117) Total Protein 7.0 gm/dl (6.4-8.2) Albumin 1.6 gm/dl (3.4-5.0) Allergies Coded Allergies: No Known Allergies (Unverified , 06/04/17) Medications Current Inpatient Medications Medications (Trade) Dose Ordered Sig/Camron Route Start Time Stop Time Status Last Admin Dose Admin Heparin Sodium (Porcine) (Heparin Sq 5000 Unit/0.5ml) 5,000 unit Q8 SQ 06/04/17 22:00 07/04/17 21:59 Future hold 06/12/17 05:36 5,000 UNIT Acetaminophen (Tylenol Tab) 650 mg Q4H PRN PO 06/04/17 20:15 07/04/17 20:14 06/12/17 02:17 650 MG Al Hydrox/Mg Hydrox/Simethicone (Maalox Max Susp) 15 ml Q4H PRN PO 06/04/17 20:15 07/04/17 20:14 Magnesium Hydroxide (Milk Of Magnesia Susp) 30 ml Q12H PRN PO 06/04/17 20:15 07/04/17 20:14 Ondansetron HCl (Zofran Inj) 4 mg Q6H PRN IV 06/04/17 20:15 07/04/17 20:14 Polyethylene (Miralax Powder Packet) 17 gm DAILY PRN PO 06/04/17 20:15 07/04/17 20:14 06/11/17 17:23 17 GM Menthol (Nice Melida) 1 melida PRN PRN MELIDA 06/05/17 16:00 07/05/17 15:59 06/05/17 17:02 24 MELIDA Albuterol (Ventolin Hfa Inhaler) 2 puffs Q4H PRN INH 06/05/17 18:00 07/05/17 17:59 06/12/17 07:43 2 PUFFS Codeine Phosphate/ Guaifenesin (Robitussin-AC Sugar Free Syrup) 10 ml HS PO 06/06/17 21:00 07/06/17 20:59 06/10/17 20:34 10 ML Insulin Aspart (novoLOG ASPART) SLIDING SCALE G... ACHS SC 06/10/17 23:15 07/10/17 23:14 06/12/17 08:15 13 UNITS Glucose (Glucose 40% Gel) 15-30 GRAMS 15 GRAMS... UD PRN PO 06/11/17 09:00 07/11/17 08:59 Glucose (Glucose Chew Tab) 4-8 Tablets 4 Tabl... UD PRN PO 06/11/17 09:00 07/11/17 08:59 Dextrose (Dextrose 50% 50ML Syringe) 25-50ML OF 50% DW IV FOR... UD PRN IV 06/11/17 09:00 07/11/17 08:59 Glucagon (Glucagon Inj) 1 mg UD PRN SQ 06/11/17 09:00 07/11/17 08:59 Insulin Glargine (Lantus Solostar Pen) 15 units BID SC 06/11/17 20:00 07/11/17 19:59 06/12/17 07:44 15 UNITS Amoxicillin/ Clavulanate Potassium (Augmentin Tab) 875 mg BIDM PO 06/11/17 19:00 06/18/17 18:59 06/12/17 07:43 875 MG Impression (1) LINDSEY (acute kidney injury) (2) Chronic kidney disease, stage 3 (moderate) (3) Pneumonia (4) Hyponatremia (5) Hyperbilirubinemia (6) Anemia (7) Diabetes mellitus with hyperglycemia (8) Proteinuria Recommendations ACUTE KIDNEY INJURY: -- Kidney function recovering with medical management (IV antibiotics and hydration). Electrolyte balance is acceptable. No acute indication for HD -- Pulmonology has ordered immunologic testing. Hepatitis/HIV/TB are negative. CHANEL is positive. Titer is pending. Will add ANCA and AGBM. -- Abdominal CT 06/04/17 negative for obstruction. Patient may have renal cysts. Cysts were noted on previous renal US studies -- Monitor serial PRP CHRONIC KIDNEY DISEASE: -- Baseline creatinine has been ~ 1.6. Patient likely has underlying diabetic nephropathy -- 24 hour urine protein 1400 mg. UIEP was negative for monoclonal band HYPONATREMIA: -- Clinically euvolemic. Elevated urine osmolality. Serum sodium is gradually correcting. May have an element of SIADH associated w/ pulmonary infection PULMONARY: -- RML, RLL consolidation and LLL cavitary lesion. Possible aspiration pneumonia. Currently on Zosyn therapy. Pulmonology is managing No further Nephrology evaluation indicated at this time. Will sign off. Please call if further Nephrology assistance is needed. Patient has not kept outpatient Nephrology appointments. Outpatient follow up can be provided by PCP.
[2017-06-12 11:24] LABS: ANA TITER > OR = 1:1280 TITER (<1:40)
[2017-06-12] MEDS ORDERED: AMOX1TAB43 PO (11:59)
--- NOTE | 2017-06-12 15:07 | Discharge Instructions ---
Discharge Instructions Date of Service Jun 12, 2017. Admission Reason for Admission: [place], Hyperbilirubinemia, Pneumonia Discharge Discharge Diagnosis / Problem: Pneumonia Discharge Goals Goal(s): Improve function, Improve disease control, Therapeutic intervention Activity Recommendations Activity Limitations: per Instructions/Follow-up section . Instructions / Follow-Up Instructions / Follow-Up During this admission you were treated for severe pneumonia. It was found that the source of your pneumonia may have been gastric contents that traveled to your lung, possibly when you had vomited about a month ago. You will need to take an antibiotic, augmentin, twice a day for 10 days. Please take the entire course of the antibiotic. This has been sent to your preferred pharmacy. Your primary care physician will help set up an appointment to have a chest xray performed in about 1 month While in the hospital you developed irritation to your liver, causing your skin to turn a yellow hue. The cause of this is unknown at this time, but may be related to the proximity of the pneumonia to your liver. Your primary care physician will determine if you need any further follow up with the gastroenterology doctors. While in hospital, you also showed some signs of irritation to your kidneys. You will need to have some labwork done, which your primary care doctor will set up. Continue all of your home medications as prescribed, but do not take the remaining clarithromycin that was prescribed to you prior to admission. You will have a new antibiotic as mentioned above. Please call your family doctor KELLY to set up an appointment with him in 7-10 days If your symptoms worsen or return, please see your PCP or return to the ED. Current Hospital Diet Patient's current hospital diet: Diabetes Type 2 Diet, Renal Diet Discharge Diet Recommended Diet: Diabetes Type 2 Diet, Renal Diet Procedures Procedures Performed: Flexible bronchoscopy,Endobronchial Ultrasound; fine needle aspiration, bronchial lavage Pending Studies Studies pending at discharge: no Medical Emergencies . Who to Call and When: Medical Emergencies: If at any time you feel your situation is an emergency, please call 911 immediately. . Non-Emergent Contact Non-Emergency issues call your: Primary Care Provider . . "Provider Documentation" section prepared by Inga Hancock. .
[2017-06-12 15:20] VITALS: BP 150/94; PULSE 72; TEMP 36.5; O2SAT 95
--- NOTE | 2017-06-12 19:59 | Discharge Summary ---
Discharge Summary Date of Service Jun 12, 2017. Discharge Summary Admission Date: Jun 04, 2017 at 20:19 Discharge Date: Jun 12, 2017 Discharge Disposition: Home Principal Diagnosis: Multifocal pneumonia Problems/Secondary Diagnoses: T2DM on oral agents HTN Sepsis secondary to Multifocal pneumonia Hyperbilirubinemia & Elevated LFTs Acute kidney injury Hyponatremia Indeterminate right renal lesion HLD Gout Immunizations: Have You Had Influenza Vaccine: Yes History of Tetanus Vaccine?: Yes History of Pneumococcal: Yes History of Hepatitis B Vaccine: No Procedures: Bronchoscopy Consultations: Pulmonology Nephrology Gastroenterology Medication Reconciliation New Medications: Amoxicillin & Pot Clavulanate (Amoxicillin/Clavulanate P) 1 Tab Tab 875 MG PO BIDM for 10 Days, #20 TAB Continued Medications: Allopurinol (Zyloprim) 100 Mg Tab 100 MG PO DAILY Ferrous Sulfate (Ferrous Sulfate) 325 Mg Tab 325 MG PO BID Glimepiride (Glimepiride) 2 Mg Tab 2 MG PO DAILY Hydrocodone W/ Homatropine (Hycodan 5/1.5MG 5 Ml) 1 Syp Syp 5 ML PO Q4-6HRS PRN for Cough Lisinopril (Lisinopril) 5 Mg Tab 5 MG PO DAILY Naproxen Sodium (Aleve) 220 Mg Tab 220 MG PO UD PRN for Pain, TAB TAKE PER PACKAGE DIRECTIONS Rosuvastatin Calcium (Rosuvastatin Calcium) 10 Mg Tab 10 MG PO HS Discontinued Medications: Clarithromycin (Clarithromycin) 500 Mg Tab 500 MG PO Q12 for 7 Days PRESCRIBED 06/02/2017, TAKE DIRECTED UNTIL GONE Discharge Exam Review of Systems: Constitutional: No fever, No chills Respiratory: + cough Abdomen: No pain, No nausea, No vomiting Integumentary: No itch Physical Exam: General Appearance: WD/WN, no apparent distress Eyes: PERRL, EOMI, + abnormal sclerae exam (Resolving icterus) ENT: hearing grossly normal Respiratory/Chest: normal breath sounds, no respiratory distress, no accessory muscle use Cardiovascular: regular rate, rhythm, no murmur Abdomen / GI: normal bowel sounds, non tender, soft Extremities: normal inspection, normal range of motion, + pedal edema (1-2+ Bilaterally) Neurologic/Psychiatric: hollock maker II-XII nml as tested, no motor/sensory deficits , alert, normal mood/affect, oriented x 3 Skin: + jaundice Hospital Course 62 yo male admitted on [id number] for sepsis 2/2 multifocal PNA with cavitary lesion unresponsive to outpatient therapy, and acute kidney injury. Admission was complicated by Hyperbilirubinemia/abnormal LFTs. PMH includes T2DM on oral agents, HTN, gout, s/p appendectomy. Sepsis secondary to Multifocal pneumonia: - Per patient, diagnosed with PNA around 30Mar, started on clarithromycin, but had ongoing cough and fatigue. - CT chest showed multifocal pneumonia, cavitary lesion, possible septic embolus , as well as calcified pleural plaques. - Azithromycin held for potential contribution to abnormal LFTs - Negative blood cultures. TB labs negative. Vasculitic panel ordered - Pulm consult: bronch showed aspiration of gastric contents. Speech eval ordered and normal. Patient reports some vomiting about 1 month ago. - Aspiration contents growing S. aureus, not MRSA, covered with augmentin on discharge - 10 day course of augmentin BID - Would benefit from follow-up CXR in approximately 1 month Hyperbilirubinemia & Elevated LFTs: -AST mildly elevated, but tbili and dbili also elevated. Lipase normal. Hepatitis A, B, C negative. Coags normal -Hepatic steatosis seen on CT chest. Gallstones seen on CT a/p. -Patient appears jaundiced but still abdominally asymptomatic. -GI consulted--possibly related to proximity to pneumonia in RLL -Echo ordered, ruled out vegetations as possible source of emboli -Potential sources include elevation from his zosyn, Gilbert's syndrome, or fatty liver disease. RUQ u/s showed gallstones without evidence of obstruction. -Other possible cause includes adverse reaction to macrolide antibiotics -Recomend follow up labwork (CMP/liver panel) and referral to GI as outpatient as needed Acute kidney injury, - Arrival Cr 5.29, decreased to baseline with hydration, however slight bump in Cr to 1.9 prior to discharge - Baseline Cr is around 1.3-1.7. Question of pre-renal source due to hypovolemia on top of some post-renal (prostate) source. - Nephro consulted: Pending ANCA and AGBM. Patient may have renal cysts. Cysts were noted on previous renal US studies - Recommend follow up BMP. Patient has reportedly been set up with nephrology in past and was lost to follow up. Hyponatremia, resolved - Likely due to dehydration. - Clinically euvolemic. May have had an element of SIADH associated w/ pulmonary infection Indeterminate right renal lesion: -Seen on CT a/p, possibly cyst as seen on prior [id number] u/s. -Recommended PCP f/u for same. HLD: Continue rosuvastatin. Gout: Holding allopurinol due to LINDSEY. Code: Full code. Total Time Spent: Greater than 30 minutes This includes examination of the patient, discharge planning, medication reconciliation, and communication with other providers. Discharge Instructions Please refer to the electronic Patient Visit Report (Discharge Instructions) for additional information. Additional Copies To Jagdeep Turk M.D. Resident Tracking Resident Involvement: Resident Care Provided Care Provided: Adult [facility] Medicine Reviewed: Pt Seen/Exam by Me History no concerns eating well. Constitutional: denies: fever Respiratory: negative: short of breath Cardiovascular: denies chest pain General Appearance: no apparent distress Respiratory: lungs clear, no respiratory distress Cardiovascular: regular rate, rhythm Neurologic/Psychiatric: alert, oriented x 3 Skin Characteristics: jaundice (improving) Assessment/Plan Resident Physician Supervision Note: I independently interviewed and examined the patient and verified the cervantes history and physical, reviewed labs and image studies, discussed the case with the resident Dr. Hancock and agree with the findings and care plan. Time spent in discharge 35 min
== END 2017-06-12 16:01 | disposition home or self-care (01) | DRG 853 ==
LOC: C.EDB 17:05 → C.MED 20:19 → ENRESERV 20:43 → C.4E 06-10 11:09 → CANBEDREQ 06-10 13:28
PROVIDERS: ADMIT Hospitalist; ATTEND Family Medicine
PROC: 0B9J8ZZ Drainage of Left Lower Lung Lobe, Via Natural or Artificial Opening Endoscopic (ICD-10-PCS; principal; 2017-06-10 11:00)
PROC: 07B74ZX Excision of Thorax Lymphatic, Percutaneous Endoscopic Approach, Diagnostic (ICD-10-PCS; principal; 2017-06-10 11:00)
PROC: 0B9F8ZZ Drainage of Right Lower Lung Lobe, Via Natural or Artificial Opening Endoscopic (ICD-10-PCS; principal; 2017-06-10 11:00)
DX: A41.9 Sepsis, unspecified organism (principal); J69.0 Pneumonitis due to inhalation of food and vomit; I26.90 Septic pulmonary embolism without acute cor pulmonale; N17.9 Acute kidney failure, unspecified; E22.2 Syndrome of inappropriate secretion of antidiuretic hormone; B95.61 Methicillin susceptible Staphylococcus aureus infection as the cause of diseases classified elsewhere; E80.6 Other disorders of bilirubin metabolism; N28.1 Cyst of kidney, acquired; R74.8 Abnormal levels of other serum enzymes; E11.22 Type 2 diabetes mellitus with diabetic chronic kidney disease; E11.21 Type 2 diabetes mellitus with diabetic nephropathy; I12.9 Hypertensive chronic kidney disease with stage 1 through stage 4 chronic kidney disease, or unspecified chronic kidney disease; N18.3 Chronic kidney disease, stage 3 (moderate); M10.9 Gout, unspecified; D50.9 Iron deficiency anemia, unspecified; N40.0 Benign prostatic hyperplasia without lower urinary tract symptoms; K76.0 Fatty (change of) liver, not elsewhere classified; E78.5 Hyperlipidemia, unspecified; E55.9 Vitamin D deficiency, unspecified; Z51.81 Encounter for therapeutic drug level monitoring; Z79.899 Other long term (current) drug therapy; Z79.84 Long term (current) use of oral hypoglycemic drugs; Z88.8 Allergy status to other drugs, medicaments and biological substances; Z83.3 Family history of diabetes mellitus; Z82.49 Family history of ischemic heart disease and other diseases of the circulatory system; Z84.1 Family history of disorders of kidney and ureter

== ENCOUNTER → 2017-06-18 | Outpatient (CLI) | payer OTHER ==
[~2017-06-18] MED LIST changes: +ALLO100T PO; +AMOX1TAB43 PO; +AMR2 PO; +ERGO500037 PO; +FERR1TAB62 PO; +HYDR5SYP11 PO; +LSN5 PO; +ONDA4TAB46 PO; +PANT40TA PO; +ROSU10TA35 PO
[2017-06-18 17:48] LABS: BASO % 0.1 %; BASO ABS # 0.01 K/uL (0-0.2); EOS % 0.4 %; EOS ABS # 0.05 K/uL (0-0.5); HEMATOCRIT 29.4 % (42-52); HEMOGLOBIN 9.4 g/dL (14.0-18.0); IG# 0.08 K/uL (0.00-0.02); LYMPH % 8.4 %; LYMPH ABS # 0.98 K/uL (1.2-3.4); MEAN CELL VOLUME 85.7 fL (80-100); MEAN CORPUSCULAR HEMOGLOBIN 27.4 pg (25-34); MEAN PLATELET VOLUME 9.3 fL (7.4-10.4); MONO % 4.9 %; MONO ABS # 0.57 K/uL (0.11-0.59); NEUT % 85.5 %; NEUT ABS # 10.03 K/uL (1.4-6.5); PLATELET COUNT 715 K/uL (130-400); RED CELL DISTRIBUTION WIDTH CV 14.9 % (11.5-14.5); RED CELL DISTRIBUTION WIDTH SD 46.7 fL (36.4-46.3); WHITE BLOOD COUNT 11.72 K/uL (4.8-10.8)
[2017-06-18 18:10] LABS: ALBUMIN 1.6 gm/dl (3.4-5.0); ALT/SGPT 51 U/L (12-78); AST/SGOT 37 U/L (15-37); BLOOD UREA NITROGEN 27 mg/dl (7-18); CARBON DIOXIDE 21 mmol/L (21-32); CREATININE 1.77 mg/dl (0.60-1.40); GLUCOSE 142 mg/dl (70-99); POTASSIUM 4.4 mmol/L (3.5-5.1); SODIUM 135 mmol/L (136-145)
[2017-06-18 18:20] LABS: ALKALINE PHOSPHATASE 466 U/L (45-117); TOTAL PROTEIN 7.6 gm/dl (6.4-8.2)
[2017-06-19 06:45] LABS: HEMOGLOBIN A1C 6.4 % (4.5-5.6)
== END | disposition home or self-care (01) ==
LOC: C.LABBFT 15:17
PROVIDERS: ATTEND Internal Medicine
DX: D64.9 Anemia, unspecified (principal); N52.9 Male erectile dysfunction, unspecified; E11.29 Type 2 diabetes mellitus with other diabetic kidney complication; E55.9 Vitamin D deficiency, unspecified; J18.9 Pneumonia, unspecified organism; E80.6 Other disorders of bilirubin metabolism

== ENCOUNTER 2017-06-21 10:01 | Emergency (ER) | payer OTHER ==
[~2017-06-21 10:01] MED LIST changes: -ERGO500037 PO; -ONDA4TAB46 PO; -PANT40TA PO
[2017-06-21 10:15] VITALS: Ht 170.2 cm
[2017-06-21 10:45] VITALS: O2SAT 96
--- NOTE | 2017-06-21 10:56 | EMERGENCY ROOM VISIT NOTE ---
History Report prepared by Tim: Lakshmi Marcos Under the Supervision of: Dr. Akbar Pavon M.D. First contact with patient: 10:31 Chief Complaint: ABDOMINAL PAIN Stated Complaint: STOMACH PAIN WAS IN HOSPTIAL FOR 8 DAYS Nursing Triage Summary: pt c/o vomiting after coughing since yesterday, has had cough for a while. Denies Diarrhea. Cough is productive. Pt c/o pain in lower mid abdomen all the way up to throat, acid coming up and he's spitting it out. Rash all over since Thursday, doesn't itch or hurt per patient. Pt discharged from [facility] on 06/12/14, had a cough while hospitalized. Had pneumonia. Also had liver and kidney problems with jaundice. History of Present Illness The patient is a 62 year old white male with a past medical history of Hyperbilirubinemia and Chronic kidney disease who presents to the ED with a cc of waxing and waning lower to mid abdominal pain beginning yesterday. Positive productive cough, swollen feet, acid reflux, and rash. The rash is on his arms, back, and legs. Negative urinary symptoms or diarrhea. He states lying down is a worsening factor and describes his pain as "burning." He was recently admitted and discharged on June 12, for pneumonia, ARF, and hyperbilirubinemia. Source of History: patient Onset: yesterday Position: abdomen (lower to mid) Quality: burning Modifying Factors (Worsening): other (lying down) Associated Symptoms: + cough (productive), No diarrhea, No urinary symptoms Note: Positive swollen feet, acid reflux, and rash. Review of Systems See HPI for pertinent positives and negatives. A total of ten systems were reviewed and were otherwise negative. Past Medical & Surgical Medical Problems: (1) LINDSEY (acute kidney injury) (2) Chronic kidney disease (CKD) stage G3b/A3, moderately decreased glomerular filtration rate (GFR) between 30-44 mL/min/1.73 square meter and albuminuria creatinine ratio greater than 300 mg/g (3) Chronic kidney disease, stage 3 (moderate) (4) Hyperbilirubinemia (5) Hyponatremia (6) Pneumonia (7) Proteinuria Family History Cancer Diabetes mellitus Heart disease Hypertension Kidney disease Kidney stones Social History Smoking Status: Never Smoker Alcohol Use: none Drug Use: none Marital Status: single Occupation Status: employed Current/Historical Medications Scheduled Allopurinol (Zyloprim), 100 MG PO DAILY Amoxicillin & Pot Clavulanate (Amoxicillin/Clavulanate P), 875 MG PO BIDM Ergocalciferol (Vitamin D 55813 Unit), 50,000 UNIT PO WK Ferrous Sulfate (Ferrous Sulfate), 325 MG PO BID Glimepiride (Glimepiride), 2 MG PO DAILY Lisinopril (Lisinopril), 5 MG PO DAILY Pantoprazole (Protonix), 40 MG PO DAILY Rosuvastatin Calcium (Rosuvastatin Calcium), 10 MG PO HS Scheduled PRN Ondansetron Hcl (Zofran), 4 MG PO Q8H PRN for Nausea Allergies Coded Allergies: Codeine (Unverified Adverse Reaction, Intermediate, Nausea, 06/21/17) Physical Exam Vital Signs Date Time Temp Pulse Resp B/P (MAP) Pulse Ox O2 Delivery O2 Flow Rate FiO2 06/21/17 14:51 36.6 96 26 185/92 95 06/21/17 14:01 95 189/89 94 06/21/17 13:31 95 192/87 94 06/21/17 13:21 99 06/21/17 13:01 97 192/109 92 06/21/17 12:31 91 30 173/97 93 06/21/17 12:16 182/99 06/21/17 12:15 97 18 182/99 92 Room Air 06/21/17 12:01 97 92 06/21/17 11:49 200/89 06/21/17 11:31 92 95 06/21/17 11:01 95 22 96 06/21/17 10:45 96 Room Air 06/21/17 10:38 95 06/21/17 10:15 36.6 100 16 161/81 97 Room Air Physical Exam GENERAL: Awake, alert, well-appearing, NAD. Obese. HENT: Normocephalic, atraumatic. EYES: Normal conjunctiva. Sclera non-icteric. NECK: Supple. No nuchal rigidity. FROM. RESPIRATORY: CTAB, no rhonchi, wheezing, crackles CARDIAC: RRR, no MRG ABDOMEN: Soft, NTND, BS+ MSK: No chest wall TTP, no LE edema NEURO: GCS 15, CN 2-12 intact, moves all 4s on command SKIN: Nonblanching macular rash that is not confluent over the bilateral lower extremities, bilateral upper extremities Medical Decision & Procedures Laboratory Results 06/21/17 12:35 Red Blood Count 3.54, Mean Corpuscular Volume 83.9, Mean Corpuscular Hemoglobin 27.4, Mean Corpuscular Hemoglobin Concent 32.7, Mean Platelet Volume 8.6, Neutrophils (%) (Auto) 86.1, Lymphocytes (%) (Auto) 8.5, Monocytes (%) (Auto) 4.3, Eosinophils (%) (Auto) 0.4, Basophils (%) (Auto) 0.2, Neutrophils # (Auto) 8.05, Lymphocytes # (Auto) 0.80, Monocytes # (Auto) 0.40, Eosinophils # (Auto) 0.04, Basophils # (Auto) 0.02 06/21/17 12:35 Test 06/21/17 12:00 06/21/17 12:35 Urine Color HEATHER Urine Appearance CLOUDY (CLEAR) Urine pH 5.0 (4.5-7.5) Urine Specific [place] 1.020 (1.000-1.030) Urine Protein 3+ (NEG) Urine Glucose (UA) NEG (NEG) Urine Ketones NEG (NEG) Urine Occult Blood 3+ (NEG) Urine Nitrite NEG (NEG) Urine Bilirubin NEG (NEG) Urine Urobilinogen NEG (NEG) Urine Leukocyte Esterase SMALL (NEG) Urine WBC (Auto) 10-30 /hpf (0-5) Urine RBC (Auto) >30 /hpf (0-4) Urine Hyaline Casts (Auto) 1-5 /lpf (0-5) Urine Epithelial Cells (Auto) >30 /lpf (0-5) Urine Bacteria (Auto) NEG (NEG) Urine Renal Epithelial Cells /lpf (0-5) Urine Pathogenic Casts /lpf (0) White Blood Count 9.36 K/uL (4.8-10.8) Red Blood Count 3.54 M/uL (4.7-6.1) Hemoglobin 9.7 g/dL (14.0-18.0) Hematocrit 29.7 % (42-52) Mean Corpuscular Volume 83.9 fL (80-100) Mean Corpuscular Hemoglobin 27.4 pg (25-34) Mean Corpuscular Hemoglobin Concent 32.7 g/dl (32-36) Platelet Count 593 K/uL (130-400) Mean Platelet Volume 8.6 fL (7.4-10.4) Neutrophils (%) (Auto) 86.1 % Lymphocytes (%) (Auto) 8.5 % Monocytes (%) (Auto) 4.3 % Eosinophils (%) (Auto) 0.4 % Basophils (%) (Auto) 0.2 % Neutrophils # (Auto) 8.05 K/uL (1.4-6.5) Lymphocytes # (Auto) 0.80 K/uL (1.2-3.4) Monocytes # (Auto) 0.40 K/uL (0.11-0.59) Eosinophils # (Auto) 0.04 K/uL (0-0.5) Basophils # (Auto) 0.02 K/uL (0-0.2) RDW Standard Deviation 44.2 fL (36.4-46.3) RDW Coefficient of Variation 14.2 % (11.5-14.5) Immature Granulocyte % (Auto) 0.5 % Immature Granulocyte # (Auto) 0.05 K/uL (0.00-0.02) Prothrombin Time 10.8 SECONDS (9.0-12.0) Prothromb Time International Ratio 1.0 (0.9-1.1) Activated Partial Thromboplast Time 26.3 SECONDS (21.0-31.0) Partial Thromboplastin Ratio 1.0 Anion Gap 7.0 mmol/L (3-11) Estimated GFR () 32.8 Estimated GFR (Non- 28.3 BUN/Creatinine Ratio 14.4 (10-20) Calcium Level 8.1 mg/dl (8.5-10.1) Total Bilirubin 1.5 mg/dl (0.2-1) Direct Bilirubin 0.9 mg/dl (0-0.2) Aspartate Amino Transf (AST/SGOT) 24 U/L (15-37) Alanine Aminotransferase (ALT/SGPT) 30 U/L (12-78) Alkaline Phosphatase 403 U/L (45-117) Total Protein 7.7 gm/dl (6.4-8.2) Albumin 1.6 gm/dl (3.4-5.0) Lipase 203 U/L (73-393) Laboratory results reviewed by me Medications Administered Medications (Trade) Dose Ordered Sig/Camron Route Start Time Stop Time Status Last Admin Dose Admin Miscellaneous Medication (Gi Cocktail) 24 ml ONE STAT PO 06/21/17 10:57 06/21/17 10:58 DC 06/21/17 10:57 24 ML Famotidine (Pepcid Tab) 40 mg NOW ONCE PO 06/21/17 11:00 06/21/17 11:01 DC 06/21/17 11:07 40 MG Lidocaine HCl (Viscous Lidocaine 2% Soln) 20 ml STK-MED ONCE .ROUTE 06/21/17 11:05 06/21/17 11:06 DC 06/21/17 11:07 20 ML Al Hydroxide/Mg Hydroxide (Maalox Susp) 30 ml STK-MED ONCE .ROUTE 06/21/17 11:05 06/21/17 11:06 DC 06/21/17 11:07 30 ML Ondansetron HCl (Zofran Odt) 4 mg NOW STAT PO 06/21/17 13:12 06/21/17 13:13 DC 06/21/17 13:39 4 MG Calcium Carbonate (Tums Chew Tab) 1,500 mg ONE STAT PO 06/21/17 13:16 06/21/17 13:17 DC 06/21/17 13:38 1,500 MG ED Course 1047: The patient was evaluated in room C8. A complete history and physical exam was performed. 1427: I checked on the patient at this time. I reevaluated the patient. Discussed results and discharge instructions: He verbalized understanding and agreement. The patient is ready for discharge. Medical Decision The patient is a 62 year old white male with a past medical history of Hyperbilirubinemia and Chronic kidney disease who presents to the ED with a cc of waxing and waning lower to mid abdominal pain beginning yesterday. Positive productive cough, acid reflux, and rash. Negative diarrhea. Nursing notes reviewed. Ancillary studies and prior records reviewed. Differential diagnosis: Etiologies such as appendicitis, diverticulitis, PUD, biliary pathology, UTI, pancreatitis, obstruction, mesenteric ischemia, aortic pathology, infections, inflammatory bowel disease, renal colic, rash, cellulitis, abscess, MRSA infection, DVT, necrotizing fasciitis, dermatitis, drug eruption, as well as others were entertained. Patient was seen and evaluated the bedside. Patient did have a recent admission and discharge for acute renal failure, pneumonia, and hyperbilirubinemia. Patient was discharged several days prior. Patient was presenting with some GI upset, reflux symptoms as well as a rash. Patient was still taking some Augmentin which she been discharged on for 10 day course. Patient did only recently noticed his skin rash. Patient denies any recent changes in creams detergents or lotions. The antibiotics are new. The patient denies any itchiness. Patient did have blood work completed, and he was given medications for symptom control. Patient's blood work showed normal white blood cell count. At 9000. Patient does have chronic but stable anemia. Patient has some thrombocytosis and some mild kidney dysfunction compared to baseline likely related to some dehydration. Patient did tolerate p.o. without issue. Patient does have elevated LFTs but they are essentially the same during his prior discharge. Upon reassessment the patient is feeling improved. Given the patient's recent rash this may be a delayed drug eruption to the patient was told to stop taking this medicine. Patient was told to follow-up as an outpatient. This may be a vasculitic type rash given that it is nonblanching however less likely ITP or TTP given the patient's relatively normal chronic anemia, chronic kidney dysfunction, and lack of thrombocytopenia. Given the patient's reflux type symptoms the patient was told to continue a PPI , bland diet, clear liquids for his dehydration as well as his reflux type symptoms. Patient was deemed suitable for outpatient follow-up and treatment at this time. Patient was given strict follow-up, discharge, and return precautions. All questions were answered. Patient was deemed suitable for outpatient follow- up at this time. Patient agreed with the plan of care and was safely discharged home. Medication Reconcilliation Current Medication List: was personally reviewed by me Blood Pressure Screening Patient's blood pressure: Elevated blood pressure Blood pressure disposition: Referred to PCP Impression Primary Impression: GERD (gastroesophageal reflux disease) Additional Impressions: CKD (chronic kidney disease) Anemia Hyperbilirubinemia Scribe Attestation The scribe's documentation has been prepared under my direction and personally reviewed by me in its entirety. I confirm that the note above accurately reflects all work, treatment, procedures, and medical decision making performed by me. Departure Information Dispostion Home / Self-Care Prescriptions Ondansetron Hcl (ZOFRAN) 4 Mg Tab 4 MG PO Q8H Y for Nausea, #12 TAB Prov: Akbar Pavon M.D. 06/21/17 Pantoprazole (Protonix) 40 Mg Tab 40 MG PO DAILY for 30 Days, #30 TAB Prov: Akbar Pavon M.D. 06/21/17 Referrals No Doctor, Assigned (PCP) Patient Instructions ED GERD, My Tosha Quiñones, [facility] Additional Instructions Please return to the emergency department if you have worsening or recurrent symptoms not amenable to at-home treatment. Please call for a follow-up appointment with her primary care physician. Please take your medications as prescribed. If you have other concerns and/or complaints please feel free to also call your primary care physician's office or return the ED for further evaluation, management, and treatment. You were found to have an elevated blood pressure today (>120 sytolic or >90 diastolic). Per medicare guidelines, you need to follow up with this blood pressure screening with your Primary Care Physician (PCP). For a new PCP call [phone]. To help with your reflux type symptoms please consider smaller more frequent meals. Please do not lay down after eating. Consider avoiding spicy, citrus, peppermint, chocolate. Consider taking a PPI or an antihistamine like Zantac or Pepcid to help with your discomfort. Please stop taking your antibiotic medication. Please monitor your rash and make a follow-up appointment with your primary care physician. Re-return if your symptoms worsen. You have been examined and treated today on an emergency basis only. This is not a substitute for, or an effort to provide, complete comprehensive medical care. It is impossible to recognize and treat all injuries or illnesses in a single emergency department visit. It is therefore important that you follow up closely with [facility], your PCP, and/or your specialist(s). Call as soon as possible for an appointment. Thank you for your time and consideration. I look forward to speaking with you again soon. Please don't hesitate to call us if you have any questions. Problem Qualifiers Primary Impression: GERD (gastroesophageal reflux disease) Esophagitis presence: esophagitis presence not specified Qualified Codes: K21.9 - Gastro-esophageal reflux disease without esophagitis Additional Impressions: CKD (chronic kidney disease) Chronic kidney disease stage: stage 3 (moderate) Qualified Codes: N18.3 - Chronic kidney disease, stage 3 (moderate) Anemia Anemia type: unspecified type Qualified Codes: D64.9 - Anemia, unspecified
[2017-06-21] MEDS ORDERED: GI COCKTAIL PO STA (10:57)
[2017-06-21] MEDS ORDERED: FAMOTIDINE 20 MG TAB PO ONE (11:00)
[2017-06-21] MEDS ORDERED: ALUMINUM/MAGNESIUM SUSP 30 ML UDC ONE (11:05)
[2017-06-21] MEDS ORDERED: LIDOCAINE HCL 2% VISC SOLN 20 ML UDC ONE (11:05)
[2017-06-21] MEDS ORDERED: ERGO500037 PO (11:21)
[2017-06-21 12:45] LABS: BASO % 0.2 %; BASO ABS # 0.02 K/uL (0-0.2); EOS % 0.4 %; EOS ABS # 0.04 K/uL (0-0.5); HEMATOCRIT 29.7 % (42-52); HEMOGLOBIN 9.7 g/dL (14.0-18.0); IG# 0.05 K/uL (0.00-0.02); LYMPH % 8.5 %; MEAN CELL VOLUME 83.9 fL (80-100); MEAN CORPUSCULAR HEMOGLOBIN 27.4 pg (25-34); MEAN CORPUSCULAR HGB CONC 32.7 g/dl (32-36); MEAN PLATELET VOLUME 8.6 fL (7.4-10.4); MONO % 4.3 %; NEUT % 86.1 %; NEUT ABS # 8.05 K/uL (1.4-6.5); PLATELET COUNT 593 K/uL (130-400); RED CELL DISTRIBUTION WIDTH CV 14.2 % (11.5-14.5); RED CELL DISTRIBUTION WIDTH SD 44.2 fL (36.4-46.3); WHITE BLOOD COUNT 9.36 K/uL (4.8-10.8)
[2017-06-21 12:56] LABS: PTT PATIENT 26.3 SECONDS (21.0-31.0)
[2017-06-21 13:01] LABS: ALBUMIN 1.6 gm/dl (3.4-5.0); ALT/SGPT 30 U/L (12-78); AST/SGOT 24 U/L (15-37); BLOOD UREA NITROGEN 35 mg/dl (7-18); CALCIUM 8.1 mg/dl (8.5-10.1); CARBON DIOXIDE 25 mmol/L (21-32); GLUCOSE 114 mg/dl (70-99); LIPASE 203 U/L (73-393); POTASSIUM 4.7 mmol/L (3.5-5.1); SODIUM 138 mmol/L (136-145)
[2017-06-21 13:04] LABS: ALKALINE PHOSPHATASE 403 U/L (45-117); TOTAL PROTEIN 7.7 gm/dl (6.4-8.2)
[2017-06-21] MEDS ORDERED: ONDANSETRON 4MG OD TAB PO STA (13:12)
[2017-06-21] MEDS ORDERED: CALCIUM CARBONATE 500 MG CHEWABLE PO STA (13:16)
[2017-06-21] MEDS ORDERED: ONDA4TAB46 PO (14:22)
[2017-06-21] MEDS ORDERED: PANT40TA PO (14:22)
[2017-06-21 14:51] VITALS: BP 185/92; PULSE 96; TEMP 36.6; O2SAT 95
== END 2017-06-21 14:52 | disposition home or self-care (01) ==
LOC: C.EDB 10:02 → C.EDC 14:52
DX: R10.30 Lower abdominal pain, unspecified (principal); R21 Rash and other nonspecific skin eruption; N18.3 Chronic kidney disease, stage 3 (moderate); K21.9 Gastro-esophageal reflux disease without esophagitis; E80.6 Other disorders of bilirubin metabolism; D64.9 Anemia, unspecified; E86.0 Dehydration; R03.0 Elevated blood-pressure reading, without diagnosis of hypertension; E66.9 Obesity, unspecified; Z87.01 Personal history of pneumonia (recurrent); Z88.6 Allergy status to analgesic agent

== ENCOUNTER 2020-04-08 21:08 | Inpatient (IN) ==
[2020-04-08] MEDS ORDERED: NITROGLYCERIN 2% OINTMENT 30GM TUBE EXT STA ×2 (21:18→23:20)
[2020-04-08] MEDS ORDERED: ACETAMINOPHEN 1000 MG/100 ML IV IV STA (21:18)
[2020-04-08] MEDS ORDERED: CEFEPIME 2,000 MG/20 ML VIAL IV STA (21:21)
--- NOTE | 2020-04-08 21:26 | Emergency Department Note ---
Impression & Plan Hypoxia, ARF (acute renal failure), Fluid overload, Respiratory distress, Acidosis, Hypocalcemia, COVID-19, Anemia ED Provider Note NAME: JYOTI HARRISON AGE: 64 SEX: M : 1955 ARRIVES VIA: Ambulance INFORMANT: [Patient][ems] ED PROVIDER(S): [Donnell Hilliard MD] CHIEF COMPLAINT: Shortness of breath HISTORY OF PRESENT ILLNESS: The patient is a 64-year-old male who states he ran of his meds about a week ago. He has noticed for over a week that he has been increasingly short of breath. He has been coughing. He has felt lousy and today, going up the stairs, became very short of breath and developed moderate chest discomfort. The patient received nitroglycerin x2, he was given oral aspirin, he was placed on CPAP. He does feel improved and his chest pain has been relieved. The patient did not notice a fever at home, he was noted by our nursing staff to be febrile at around 38 degrees. Patient states that he had no known Covid or influenza exposures. No one sick at his home. The patient has noticed increasing edema of his legs. Patient states he is urinating at least 3 times a day, no burning to urinate. He states he has no known lung or heart disease. He is diabetic and has a history of hypertension. REVIEW OF SYSTEMS: See HPI for pertinent positives and negatives. A total of ten systems were reviewed and were otherwise negative. PMHx/PSHx: See Below SOCIAL HISTORY: See Below. PHYSICAL EXAM: GENERAL: Patient is in moderate respiratory distress. HEENT: No acute trauma, normocephalic atraumatic, mucous membranes moist, no nasal congestion, no scleral icterus. NECK: No stridor, no adenopathy, no meningismus, trachea is midline. LUNGS: Coarse breath sounds bilaterally, crackles heard bilaterally. No wheezing. Increased respiratory rate, moderate respiratory distress. HEART: Mildly tachycardic, regular rhythm, no obvious murmur although, it is hard to hear the heart tones because of the lung sounds. ABDOMEN: Soft, nontender, bowel sounds positive, no hernias, no peritonitis. EXTREMITIES: No cyanosis, significant bilateral pedal edema, full range of motion of all the joints without pain or difficulty, no signs for acute trauma. NEUROLOGIC: Oriented x 3, no acute motor or sensory deficits, no focal weakness. SKIN: No rash, no jaundice, no diaphoresis. DIFFERENTIAL DIAGNOSIS: Sepsis, UTI, pneumonia, COVID-19, influenza, CHF, renal failure, fluid overload, metabolic abnormality, electrolyte abnormalities, cardiac sources, cellulitis, UTI, bacteremia, intracerebral event, toxicologic etiology, neurologic event, as well as other pathologies. EMERGENCY DEPARTMENT COURSE/PROCEDURES: ECG: Indication was chest pain and shortness of breath. The ECG shows a sinus rhythm with some PACs. The rate is 100. There is some baseline artifact. The QTc is 497. There is some subtle ST depression laterally. No ST elevation, no PVCs. Compared to an ECG from 04 June 2017, PACs are now present, the ST change is now present. Continuous Cardiac Monitoring: An order was placed for continuous cardiac monitoring. The monitor shows a rate of 97 with sinus rhythm with PACs. Critical Care Note: I have personally spent 54 minutes of critical care time in the direct management of this patient. This includes bedside care, interpretation of diagnostic studies, and testing, discussion with consultants, patient, and family members, and other required patient management activities. This 54 minutes is in excess of all separately billable procedures. MEDICAL DECISION MAKING: There is a mild leukocytosis, this could be consistent with infection. The patient is quite anemic with a hemoglobin of 7. This is a significant drop for him. Platelet count was normal. No concerning coagulopathy. ABG shows a metabolic acidosis with a pH of 7.28. The bicarb was 14. No hypoxia. Renal panel testing showed a normal potassium however, the creatinine was quite high at 16. BUN was high at 125. There was an anion gap of 19 and a CO2 of 15. Lactic acid level was not elevated making sepsis less likely. Calcium was critically low at 5.3. Magnesium was low at 1.6. Alk phos was elevated at 481, the remaining liver enzymes were unremarkable. BNP was quite elevated at 16,000, consistent with fluid overload. Procalcitonin level was elevated at 1.15. Chest film showed fluid overload/CHF plus bilateral infiltrates consistent with potential viral pneumonia. ECG showed a sinus rhythm with PACs, no acute ischemia. Cardiac troponin was somewhat elevated at 0.060, consistent with cardiac injury or strain. Covid testing returned positive. Chest and abdominal CT scans are pending. The patient presented in respiratory distress. He was reportedly hypoxic. He had noted chest pain earlier which had resolved after nitroglycerin administered by EMS. The patient was aggressively managed. He was given 2 inches of nitroglycerin paste which was eventually increased to 3 inches. He received 40 mg of IV Lasix, he was maintained on BiPAP. He received 6 mg of Decadron IV as he was hypoxic with Covid pneumonia. He was given IV cefepime as empiric antibiotic coverage. He received IV Tylenol for his fever. After discussing his renal panel results with nephrology, he received a dose of IV calcium gluconate, IV sodium bicarbonate, 4 mg of IV Bumex. The patient had a [place] catheter placed to monitor his urine output. The patient feels markedly improved. He looks better. His heart rate has decreased, his blood pressure is improved, his oxygenation is adequate on BiPAP, his respiratory rate has decreased and he no longer seems to be in respiratory distress. The patient is going to be hospitalized in our ICU. He may require dialysis in the morning if things are not improving overnight. He has multiple issues found on work-up that explain his presentation. I did discuss my findings with him. I did speak with case management. The on-call hospitalist was consulted. The ICU physician was consulted. Past Med/Surg History Medical History LINDSEY (acute kidney injury) Diabetes mellitus with hyperglycemia Surgical History (Updated 07/04/19 @ 14:15 by Anne Roman LPN) History of appendectomy History of incision and drainage Family History (Updated 06/13/19 @ 13:41 by Donna Kay MA) Mother Cancer Denies family history of Ovarian cancer Prostate cancer Myocardial infarction Breast cancer Colorectal cancer Social History Smoking Status: Never smoker Hx Alcohol Use: No Preferred Language: Indonesian marital status: single current occupational status: employed Feels Safe at Home: Yes Allergies Allergies Allergy/AdvReac Type Severity Reaction Status Date / Time atorvastatin [From Lipitor] Allergy Verified 06/13/19 13:35 simvastatin [From Zocor] Allergy Verified 06/13/19 13:35 codeine AdvReac Intermediate Nausea Unverified 11/13/17 13:04 Home Meds Home Medications Medication Instructions Recorded Confirmed ferrous sulfate 325 mg (65 mg 325 mg PO tab 06/13/19 06/13/19 iron) tablet pantoprazole 40 mg tablet,delayed 40 mg PO tab 06/13/19 06/13/19 release Previous Rx's Medication Instructions Recorded indomethacin 50 mg PO BID #10 cap 11/13/17 rosuvastatin 10 mg tablet 10 mg PO DAILY #30 tab 11/03/18 glimepiride 2 mg tablet 2 mg PO QAM #30 tab 06/03/19 lisinopril 5 mg tablet 5 mg PO DAILY #30 tab 06/03/19 allopurinol 100 mg tablet 100 mg PO DAILY #30 tab 06/06/19 Results & Data (ED) Vital Signs Vital Signs - 24 hr 04/08/20 21:17 04/08/20 21:25 04/08/20 21:30 Temperature 38.1 C H Temperature Source Oral Pulse Rate 103 H 103 H 97 H Pulse Rate from SpO2 Sensor 99 H Respiratory Rate 30 H 33 H 37 H Respiratory Effort / Characteristics Short of Breath Spontaneous Short of Breath SOB on Exertion Spontaneous Respiratory Depth Deep Deep Respiratory Pattern Tachypnea Blood Pressure 227/112 H 220/102 H Blood Pressure Mean 150 141 Pulse Oximetry 100 100 100 Oxygen Delivery Method BiPAP BiPAP Fraction of Inspired Oxygen 40 40 Sepsis Recent Fever Within 48 Hours Yes Sepsis New/Unexplained Change in Mental Status No Sepsis Action Taken by Nursing Physician Notified 04/08/20 21:34 04/08/20 21:45 04/08/20 21:50 Temperature Temperature Source Pulse Rate 96 H Pulse Rate from SpO2 Sensor 96 H Respiratory Rate 30 H Respiratory Effort / Characteristics Spontaneous Respiratory Depth Respiratory Pattern Blood Pressure 207/107 H Blood Pressure Mean 140 Pulse Oximetry 100 Oxygen Delivery Method BiPAP BiPAP BiPAP Fraction of Inspired Oxygen Sepsis Recent Fever Within 48 Hours Sepsis New/Unexplained Change in Mental Status Sepsis Action Taken by Nursing 04/08/20 22:00 04/08/20 22:15 04/08/20 22:20 Temperature Temperature Source Pulse Rate 92 H 90 Pulse Rate from SpO2 Sensor 92 H 90 Respiratory Rate 22 25 H Respiratory Effort / Characteristics Spontaneous Respiratory Depth Respiratory Pattern Blood Pressure 205/96 H 197/92 H Blood Pressure Mean 132 127 Pulse Oximetry 100 100 Oxygen Delivery Method BiPAP BiPAP BiPAP Fraction of Inspired Oxygen Sepsis Recent Fever Within 48 Hours Sepsis New/Unexplained Change in Mental Status Sepsis Action Taken by Nursing 04/08/20 22:30 04/08/20 22:45 04/08/20 23:00 Temperature Temperature Source Pulse Rate 87 85 87 Pulse Rate from SpO2 Sensor 87 86 87 Respiratory Rate 28 H 23 20 Respiratory Effort / Characteristics Spontaneous Spontaneous Respiratory Depth Respiratory Pattern Blood Pressure 188/94 H 177/88 H 196/97 H Blood Pressure Mean 125 117 130 Pulse Oximetry 100 100 100 Oxygen Delivery Method BiPAP BiPAP BiPAP Fraction of Inspired Oxygen Sepsis Recent Fever Within 48 Hours Sepsis New/Unexplained Change in Mental Status Sepsis Action Taken by Nursing 04/08/20 23:15 04/08/20 23:30 04/08/20 23:45 Temperature Temperature Source Pulse Rate 83 86 84 Pulse Rate from SpO2 Sensor 83 87 84 Respiratory Rate 25 H 31 H 28 H Respiratory Effort / Characteristics Spontaneous Respiratory Depth Respiratory Pattern Blood Pressure 179/99 H 200/104 H 201/112 H Blood Pressure Mean 125 136 141 Pulse Oximetry 100 100 100 Oxygen Delivery Method BiPAP BiPAP BiPAP Fraction of Inspired Oxygen Sepsis Recent Fever Within 48 Hours Sepsis New/Unexplained Change in Mental Status Sepsis Action Taken by Nursing 04/09/20 00:00 Temperature Temperature Source Pulse Rate 84 Pulse Rate from SpO2 Sensor 84 Respiratory Rate 23 Respiratory Effort / Characteristics Spontaneous Respiratory Depth Respiratory Pattern Blood Pressure 203/98 H Blood Pressure Mean 133 Pulse Oximetry 100 Oxygen Delivery Method BiPAP Fraction of Inspired Oxygen Sepsis Recent Fever Within 48 Hours Sepsis New/Unexplained Change in Mental Status Sepsis Action Taken by [facility]irement Medications Current Medication List: was personally reviewed by me Laboratory Data Attestation: I reviewed the patient's lab results. Result diagrams: 04/08/20 21:49 04/08/20 21:49 Lab Results 04/08/20 04/08/20 04/08/20 Range/Units 21:49 21:49 21:49 WBC 11.33 H (4.8-10.8) K/uL RBC 2.55 L (4.7-6.1) M/uL Hgb 7.1 L (14.0-18.0) g/dL Hct 21.5 L (42-52) % MCV 84.3 (80-100) fL MCH 27.8 (25-34) pg MCHC 33.0 (32-36) g/dL RDW Std Deviation 46.1 (36.4-46.3) fL RDW Coeff of Inderjit 14.8 H (11.5-14.5) % Plt Count 247 (130-400) K/uL MPV 9.2 (7.4-10.4) fL Immature Gran % (Auto) 0.4 % Neut % (Auto) 89.2 % Lymph % (Auto) 4.9 % [place] % (Auto) 4.8 % Eos % (Auto) 0.6 % Baso % (Auto) 0.1 % Neut # (Auto) 10.11 H (1.4-6.5) K/uL Lymph # (Auto) 0.56 L (1.2-3.4) K/uL [place] # (Auto) 0.54 (0.11-0.59) K/uL Eos # (Auto) 0.07 (0-0.5) K/uL Baso # (Auto) 0.01 (0-0.2) K/uL Immature Gran # (Auto) 0.04 H (0.00-0.02) K/uL RBC Morphology Unremarkable PT (9.0-12.0) Seconds INR (0.9-1.1) APTT (21.0-31.0) Seconds PTT Ratio ABG pH (7.35-7.45) ABG pCO2 (35-46) mmHg ABG pO2 (80-95) mmHg ABG HCO3 (19-24) mmol/L ABG O2 Saturation (90-95) % ABG Base Excess (-9-1.8) mEq/L Kennedy Test (Pos) Barometric Pressure mm/Hg Oxygen Given Sodium 136 (136-145) mmol/L Potassium 4.7 (3.5-5.1) mmol/L Chloride 101 (98-107) mmol/L Carbon Dioxide 15 L (21-32) mmol/L Anion Gap 19.0 H (3-11) BUN 125 H (7-18) mg/dl Creatinine 16.10 H* (0.6-1.4) mg/dl Est Cr Clr Drug Dosing 6.0 ml/min Est GFR ( Amer) 3.2 Est GFR (Non-Af Amer) 2.8 BUN/Creatinine Ratio 7.6 L (10-20) Glucose 176 H (70-99) mg/dl Lactate (0.4-2.0) mmol/L Calcium 5.3 L* (8.5-10.1) mg/dl Magnesium 1.6 L (1.8-2.4) mg/dl Total Bilirubin 0.4 (0.2-1) mg/dl AST 22 (15-37) U/L ALT 26 (12-78) U/L Alkaline Phosphatase 481 H (45-117) U/L Troponin I 0.060 H* (0-0.045) ng/ml NT-Pro-B Natriuret Pep 68263 H (0-900) pg/ml Total Protein 6.5 (6.4-8.2) gm/dl Albumin 2.1 L (3.4-5.0) gm/dl Globulin 4.4 H (2.5-4.0) gm/dl Albumin/Globulin Ratio 0.5 L (0.9-2) Procalcitonin 1.15 H (0-0.5) ng/ml Urine Color Urine Appearance (Clear) Urine pH (4.5-7.5) Ur Specific Cobb (1.000-1.030) Urine Protein (Negative) Urine Glucose (UA) (Negative) Urine Ketones (Negative) Urine Blood (Negative) Urine Nitrite (Negative) Urine Bilirubin (Negative) Urine Urobilinogen (Negative) Ur Leukocyte Esterase (Negative) Urine WBC (Auto) (0-5) /hpf Urine RBC (Auto) (0-4) /hpf U Hyaline Cast (Auto) (0-5) /lpf U Epithel Cells (Auto) (0-5) /lpf Urine Bacteria (Auto) (Negative) Ur Renal Epithelial Cell (0-5) /lpf Amorphous Sediment (None Prsent) COVID-19 Eval Order SARS-CoV-2 (PCR) (Negative) Influenza Type A (PCR) (Neg) Influenza Type B (PCR) (Neg) RSV (RT-PCR) (Neg) Blood Type Antibody Screen Crossmatch 04/08/20 04/08/20 04/08/20 Range/Units 21:49 21:49 21:53 WBC (4.8-10.8) K/uL RBC (4.7-6.1) M/uL Hgb (14.0-18.0) g/dL Hct (42-52) % MCV (80-100) fL MCH (25-34) pg MCHC (32-36) g/dL RDW Std Deviation (36.4-46.3) fL RDW Coeff of Inderjit (11.5-14.5) % Plt Count (130-400) K/uL MPV (7.4-10.4) fL Immature Gran % (Auto) % Neut % (Auto) % Lymph % (Auto) % [place] % (Auto) % Eos % (Auto) % Baso % (Auto) % Neut # (Auto) (1.4-6.5) K/uL Lymph # (Auto) (1.2-3.4) K/uL [place] # (Auto) (0.11-0.59) K/uL Eos # (Auto) (0-0.5) K/uL Baso # (Auto) (0-0.2) K/uL Immature Gran # (Auto) (0.00-0.02) K/uL RBC Morphology PT 11.9 (9.0-12.0) Seconds INR 1.2 H (0.9-1.1) APTT 28.9 (21.0-31.0) Seconds PTT Ratio 1.1 ABG pH (7.35-7.45) ABG pCO2 (35-46) mmHg ABG pO2 (80-95) mmHg ABG HCO3 (19-24) mmol/L ABG O2 Saturation (90-95) % ABG Base Excess (-9-1.8) mEq/L Kennedy Test (Pos) Barometric Pressure mm/Hg Oxygen Given Sodium (136-145) mmol/L Potassium (3.5-5.1) mmol/L Chloride (98-107) mmol/L Carbon Dioxide (21-32) mmol/L Anion Gap (3-11) BUN (7-18) mg/dl Creatinine (0.6-1.4) mg/dl Est Cr Clr Drug Dosing ml/min Est GFR ( Amer) Est GFR (Non-Af Amer) BUN/Creatinine Ratio (10-20) Glucose (70-99) mg/dl Lactate 0.7 (0.4-2.0) mmol/L Calcium (8.5-10.1) mg/dl Magnesium (1.8-2.4) mg/dl Total Bilirubin (0.2-1) mg/dl AST (15-37) U/L ALT (12-78) U/L Alkaline Phosphatase (45-117) U/L Troponin I (0-0.045) ng/ml NT-Pro-B Natriuret Pep (0-900) pg/ml Total Protein (6.4-8.2) gm/dl Albumin (3.4-5.0) gm/dl Globulin (2.5-4.0) gm/dl Albumin/Globulin Ratio (0.9-2) Procalcitonin (0-0.5) ng/ml Urine Color Urine Appearance (Clear) Urine pH (4.5-7.5) Ur Specific Cobb (1.000-1.030) Urine Protein (Negative) Urine Glucose (UA) (Negative) Urine Ketones (Negative) Urine Blood (Negative) Urine Nitrite (Negative) Urine Bilirubin (Negative) Urine Urobilinogen (Negative) Ur Leukocyte Esterase (Negative) Urine WBC (Auto) (0-5) /hpf Urine RBC (Auto) (0-4) /hpf U Hyaline Cast (Auto) (0-5) /lpf U Epithel Cells (Auto) (0-5) /lpf Urine Bacteria (Auto) (Negative) Ur Renal Epithelial Cell (0-5) /lpf Amorphous Sediment (None Prsent) COVID-19 Eval Order CovFluRsv at [facility] SARS-CoV-2 (PCR) (Negative) Influenza Type A (PCR) (Neg) Influenza Type B (PCR) (Neg) RSV (RT-PCR) (Neg) Blood Type Antibody Screen Crossmatch 04/08/20 04/08/20 04/08/20 Range/Units 21:53 22:41 22:41 WBC (4.8-10.8) K/uL RBC (4.7-6.1) M/uL Hgb (14.0-18.0) g/dL Hct (42-52) % MCV (80-100) fL MCH (25-34) pg MCHC (32-36) g/dL RDW Std Deviation (36.4-46.3) fL RDW Coeff of Inderjit (11.5-14.5) % Plt Count (130-400) K/uL MPV (7.4-10.4) fL Immature Gran % (Auto) % Neut % (Auto) % Lymph % (Auto) % [place] % (Auto) % Eos % (Auto) % Baso % (Auto) % Neut # (Auto) (1.4-6.5) K/uL Lymph # (Auto) (1.2-3.4) K/uL [place] # (Auto) (0.11-0.59) K/uL Eos # (Auto) (0-0.5) K/uL Baso # (Auto) (0-0.2) K/uL Immature Gran # (Auto) (0.00-0.02) K/uL RBC Morphology PT (9.0-12.0) Seconds INR (0.9-1.1) APTT (21.0-31.0) Seconds PTT Ratio ABG pH 7.28 L (7.35-7.45) ABG pCO2 30 L (35-46) mmHg ABG pO2 156 H (80-95) mmHg ABG HCO3 14 L (19-24) mmol/L ABG O2 Saturation 97.7 H (90-95) % ABG Base Excess -12.1 L (-9-1.8) mEq/L Kennedy Test Pos (Pos) Barometric Pressure 736.1 mm/Hg Oxygen Given FIO2 40% Sodium (136-145) mmol/L Potassium (3.5-5.1) mmol/L Chloride (98-107) mmol/L Carbon Dioxide (21-32) mmol/L Anion Gap (3-11) BUN (7-18) mg/dl Creatinine (0.6-1.4) mg/dl Est Cr Clr Drug Dosing ml/min Est GFR ( Amer) Est GFR (Non-Af Amer) BUN/Creatinine Ratio (10-20) Glucose (70-99) mg/dl Lactate (0.4-2.0) mmol/L Calcium (8.5-10.1) mg/dl Magnesium (1.8-2.4) mg/dl Total Bilirubin (0.2-1) mg/dl AST (15-37) U/L ALT (12-78) U/L Alkaline Phosphatase (45-117) U/L Troponin I (0-0.045) ng/ml NT-Pro-B Natriuret Pep (0-900) pg/ml Total Protein (6.4-8.2) gm/dl Albumin (3.4-5.0) gm/dl Globulin (2.5-4.0) gm/dl Albumin/Globulin Ratio (0.9-2) Procalcitonin (0-0.5) ng/ml Urine Color Urine Appearance (Clear) Urine pH (4.5-7.5) Ur Specific [place] (1.000-1.030) Urine Protein (Negative) Urine Glucose (UA) (Negative) Urine Ketones (Negative) Urine Blood (Negative) Urine Nitrite (Negative) Urine Bilirubin (Negative) Urine Urobilinogen (Negative) Ur Leukocyte Esterase (Negative) Urine WBC (Auto) (0-5) /hpf Urine RBC (Auto) (0-4) /hpf U Hyaline Cast (Auto) (0-5) /lpf U Epithel Cells (Auto) (0-5) /lpf Urine Bacteria (Auto) (Negative) Ur Renal Epithelial Cell (0-5) /lpf Amorphous Sediment (None Prsent) COVID-19 Eval Order SARS-CoV-2 (PCR) POSITIVE A* (Negative) Influenza Type A (PCR) Negative (Neg) Influenza Type B (PCR) Negative (Neg) RSV (RT-PCR) Negative (Neg) Blood Type O Positive Antibody Screen NEGATIVE Crossmatch See Detail 04/08/20 Range/Units 23:37 WBC (4.8-10.8) K/uL RBC (4.7-6.1) M/uL Hgb (14.0-18.0) g/dL Hct (42-52) % MCV (80-100) fL MCH (25-34) pg MCHC (32-36) g/dL RDW Std Deviation (36.4-46.3) fL RDW Coeff of Inderjit (11.5-14.5) % Plt Count (130-400) K/uL MPV (7.4-10.4) fL Immature Gran % (Auto) % Neut % (Auto) % Lymph % (Auto) % [place] % (Auto) % Eos % (Auto) % Baso % (Auto) % Neut # (Auto) (1.4-6.5) K/uL Lymph # (Auto) (1.2-3.4) K/uL [place] # (Auto) (0.11-0.59) K/uL Eos # (Auto) (0-0.5) K/uL Baso # (Auto) (0-0.2) K/uL Immature Gran # (Auto) (0.00-0.02) K/uL RBC Morphology PT (9.0-12.0) Seconds INR (0.9-1.1) APTT (21.0-31.0) Seconds PTT Ratio ABG pH (7.35-7.45) ABG pCO2 (35-46) mmHg ABG pO2 (80-95) mmHg ABG HCO3 (19-24) mmol/L ABG O2 Saturation (90-95) % ABG Base Excess (-9-1.8) mEq/L Kennedy Test (Pos) Barometric Pressure mm/Hg Oxygen Given Sodium (136-145) mmol/L Potassium (3.5-5.1) mmol/L Chloride (98-107) mmol/L Carbon Dioxide (21-32) mmol/L Anion Gap (3-11) BUN (7-18) mg/dl Creatinine (0.6-1.4) mg/dl Est Cr Clr Drug Dosing ml/min Est GFR ( Amer) Est GFR (Non-Af Amer) BUN/Creatinine Ratio (10-20) Glucose (70-99) mg/dl Lactate (0.4-2.0) mmol/L Calcium (8.5-10.1) mg/dl Magnesium (1.8-2.4) mg/dl Total Bilirubin (0.2-1) mg/dl AST (15-37) U/L ALT (12-78) U/L Alkaline Phosphatase (45-117) U/L Troponin I (0-0.045) ng/ml NT-Pro-B Natriuret Pep (0-900) pg/ml Total Protein (6.4-8.2) gm/dl Albumin (3.4-5.0) gm/dl Globulin (2.5-4.0) gm/dl Albumin/Globulin Ratio (0.9-2) Procalcitonin (0-0.5) ng/ml Urine Color Yellow Urine Appearance Cloudy A (Clear) Urine pH 5.5 (4.5-7.5) Ur Specific [place] 1.020 (1.000-1.030) Urine Protein 4+ H (Negative) Urine Glucose (UA) 1+ H (Negative) Urine Ketones Negative (Negative) Urine Blood 2+ H (Negative) Urine Nitrite Negative (Negative) Urine Bilirubin Negative (Negative) Urine Urobilinogen Negative (Negative) Ur Leukocyte Esterase Trace H (Negative) Urine WBC (Auto) 10-30 H (0-5) /hpf Urine RBC (Auto) >30 H (0-4) /hpf U Hyaline Cast (Auto) 0 (0-5) /lpf U Epithel Cells (Auto) >30 H (0-5) /lpf Urine Bacteria (Auto) Negative (Negative) Ur Renal Epithelial Cell 0-5 (0-5) /lpf Amorphous Sediment Present A (None Prsent) COVID-19 Eval Order SARS-CoV-2 (PCR) (Negative) Influenza Type A (PCR) (Neg) Influenza Type B (PCR) (Neg) RSV (RT-PCR) (Neg) Blood Type Antibody Screen Crossmatch Administered Medications Discontinued Medications Acetaminophen (Acetaminophen 1000 Mg/100 Ml Iv) 1,000 mg IV NOW STA Stop: 04/08/20 21:19 Last Admin: 04/08/20 21:44 Dose: 1,000 mg Documented by: [id number] Dexamethasone (Dexamethasone Sod Inj 10 Mg/Ml Vial) 6 mg IV NOW ONE Stop: 04/08/20 22:32 Last Admin: 04/08/20 22:49 Dose: 6 mg Documented by: [id number] Furosemide (Furosemide 40 Mg/4 Ml Vial) 40 mg IV NOW STA Stop: 04/08/20 22:30 Last Admin: 04/08/20 22:50 Dose: 40 mg Documented by: [id number] Cefepime HCl (Maxipime) 2,000 mg in 20 mls @ 5 mls/min IV NOW STA; Protocol Stop: 04/08/20 21:24 Last Admin: 04/08/20 22:13 Dose: 5 mls/min Documented by: [id number] Calcium Gluconate () 1,000 mg in 60 mls @ 240 mls/hr IV NOW STA Stop: 04/08/20 23:31 Last Infusion: 04/09/20 00:02 Dose: 0 mls/hr Documented by: [id number] Admin: 04/08/20 23:47 Dose: 240 mls/hr Documented by: [id number] Bumetanide 4 mg/ Syringe 16 mls @ 4 mls/min IV ONE ONE Stop: 04/08/20 23:20 Last Admin: 04/08/20 23:39 Dose: 4 mls/min Documented by: [id number] Nitroglycerin (Nitroglycerin 2% Ointment 30gm Tube) 2 inch EXT NOW STA Stop: 04/08/20 21:19 Last Admin: 04/08/20 21:43 Dose: 2 inch Documented by: [id number] Nitroglycerin (Nitroglycerin 2% Ointment 30gm Tube) 3 inch EXT NOW STA Stop: 04/08/20 23:21 Last Admin: 04/08/20 23:41 Dose: 3 inch Documented by: [id number] Sodium Bicarbonate (Sodium Bicarbonate 8.4% Inj 50 Meq/50 Ml Vial) 50 meq IV NOW STA Stop: 04/08/20 23:18 Last Admin: 04/08/20 23:45 Dose: Not Given Documented by: [id number] Sodium Bicarbonate (Sodium Bicarb 8.4% Inj 50 Meq/50 Ml Syr) Confirm Administered Dose 50 meq IV .STK-MED ONE Stop: 04/08/20 23:36 Last Admin: 04/08/20 23:44 Dose: 50 meq Documented by: [id number] Imaging Data Attestation: I personally reviewed and interpreted this imaging study as follows: My Impression: Chest ray: There are bilateral pulmonary infiltrates consistent with a viral pneumonia. CHF is present, cardiomegaly was noted. No pneumothorax. Radiologist's Impression: Chest and abdominal CT scans without contrast are pending. Discharge Plan Visit Data Chief Complaint: Shortness of Breath/Dyspnea Stated Complaint: SOB, HTN ED Provider: Donnell Hilliard Discharge Problem: Hypoxia, ARF (acute renal failure), Fluid overload, Respiratory distress, Acidosis, Hypocalcemia, COVID-19, Anemia Patient Disposition: Admitted As Inpatient Condition: Serious Forms Stand Alone Forms: My [facility] Prescriptions Prescriptions: No Action rosuvastatin [Crestor] 10 mg tablet 10 mg PO DAILY Qty: 30 RF: 5 glimepiride [Amaryl] 2 mg tablet 2 mg PO QAM Qty: 30 RF: 5 lisinopril [Zestril] 5 mg tablet 5 mg PO DAILY Qty: 30 RF: 5 allopurinol [Zyloprim] 100 mg tablet 100 mg PO DAILY Qty: 30 RF: 1 pantoprazole 40 mg tablet,delayed release (DR/EC) 40 mg PO RF: 0 ferrous sulfate 325 mg (65 mg iron) tablet 325 mg PO RF: 0 indomethacin 50 mg capsule 50 mg PO BID Qty: 10 RF: 0 Referrals Referrals: Martín Turk MD [Primary Care Provider] - Discharge Problem: ARF (acute renal failure) Qualifiers: Acute renal failure type: unspecified Qualified Code(s): N17.9 - Acute kidney failure, unspecified Fluid overload Qualifiers: Hypervolemia type: unspecified Qualified Code(s): E87.70 - Fluid overload, unspecified Anemia Qualifiers: Anemia type: unspecified type Qualified Code(s): D64.9 - Anemia, unspecified
[2020-04-08 22:13] LABS: Basophils # (auto) 0.01 K/uL (0-0.2); Basophils % (auto) 0.1 %; Eosinophils # (auto) 0.07 K/uL (0-0.5); Eosinophils % (auto) 0.6 %; Hematocrit (blood only) 21.5 % (42-52); Hemoglobin 7.1 g/dL (14.0-18.0); Immature Granulocytes # (auto) 0.04 K/uL (0.00-0.02); Immature Granulocytes % (auto) 0.4 %; Lymphocytes # (auto) 0.56 K/uL (1.2-3.4); Lymphocytes % (auto) 4.9 %; Mean Corpuscular Hemoglobin 27.8 pg (25-34); Mean Corpuscular Volume 84.3 fL (80-100); Mean Platelet Volume 9.2 fL (7.4-10.4); Monocytes # (auto) 0.54 K/uL (0.11-0.59); Monocytes % (auto) 4.8 %; Neutrophils # (auto) 10.11 K/uL (1.4-6.5); Neutrophils % (auto) 89.2 %; Platelet Count 247 K/uL (130-400); RDW Coefficient of Variation 14.8 % (11.5-14.5); RDW Standard Deviation 46.1 fL (36.4-46.3); Red Blood Count 2.55 M/uL (4.7-6.1); White Blood Count 11.33 K/uL (4.8-10.8)
[2020-04-08] MEDS ORDERED: SODIUM CHLORIDE 0.9% 250 ML IV PRN (22:16)
[2020-04-08 22:24] LABS: INR 1.2 (0.9-1.1); Partial Thromboplastin Ratio 1.1; Partial Thromboplastin Time 28.9 Seconds (21.0-31.0); Prothrombin Time 11.9 Seconds (9.0-12.0)
[2020-04-08] MEDS ORDERED: FUROSEMIDE 40 MG/4 ML VIAL IV STA (22:29)
[2020-04-08] MEDS ORDERED: DEXAMETHASONE SOD INJ 10 MG/ML VIAL IV ONE (22:31)
[2020-04-08 22:36] LABS: RBC Morphology Unremarkable
[2020-04-08 22:46] LABS: Albumin Globulin Ratio 0.5 (0.9-2); Albumin Level 2.1 gm/dl (3.4-5.0); BUN Creatinine Ratio 7.6 (10-20); Bilirubin,Total 0.4 mg/dl (0.2-1); Calcium 5.3 mg/dl (8.5-10.1); Est GFR (African American) 3.2; Est GFR (Non-African American) 2.8; Globulin 4.4 gm/dl (2.5-4.0); Magnesium 1.6 mg/dl (1.8-2.4); Potassium 4.7 mmol/L (3.5-5.1); Total Protein 6.5 gm/dl (6.4-8.2); Troponin I 0.06 ng/ml (0-0.045)
[2020-04-08 22:53] LABS: Base Excess ABG -12.1 mEq/L (-9-1.8); HCO3 ABG 14 mmol/L (19-24); Oxygen Saturation ABG 97.7 % (90-95); PCO2 ABG 30 mmHg (35-46); PO2 ABG 156 mmHg (80-95); pH ABG 7.28 (7.35-7.45)
[2020-04-08 22:54] LABS: Allen Test Pos (Pos)
[2020-04-08 22:58] LABS: Influenza A virus by PCR Negative (Neg); Influenza B virus by PCR Negative (Neg); RSV by PCR Negative (Neg)
[2020-04-08 23:06] LABS: SARS CoV2 RNA(COVID-19) InHosp POSITIVE (Negative)
[2020-04-08] MEDS ORDERED: BUMETANIDE 4 MG in SYRINGE 0 ML IV ONE (23:17)
[2020-04-08] MEDS ORDERED: SODIUM BICARBONATE 8.4% INJ 50 MEQ/50 ML VIAL IV STA (23:17)
[2020-04-08] MEDS ORDERED: CALCIUM GLUCONATE 1,000 MG/60 ML BAG IV STA (23:17)
[2020-04-08] MEDS ORDERED: SODIUM BICARB 8.4% INJ 50 MEQ/50 ML SYR IV ONE (23:35)
[2020-04-09 00:01] LABS: Appearance Urine Cloudy (Clear); Bacteria Urine Automated Negative (Negative); Bilirubin Urine Negative (Negative); Blood Urine 2+ (Negative); Color Urine Yellow; Epithelial Cell Urine Auto >30 /lpf (0-5); Glucose Urine UA 1+ (Negative); Ketones Urine Negative (Negative); Leukocyte Esterase Urine Trace (Negative); Nitrite Urine Negative (Negative); Protein Urine 4+ (Negative); RBC Urine Automated >30 /hpf (0-4); Urobilinogen Urine Negative (Negative); pH Urine 5.5 (4.5-7.5)
[2020-04-09 00:21] LABS: Amorphous Sediment Urine Present (None Prsent); Cast Urine Automated 0 /lpf (0-5); Renal Epithelial Cells Urine 0-5 /lpf (0-5)
[2020-04-09] MEDS ORDERED: GLUCOSE 10 TABS/TUBE PO PRN (01:58)
[2020-04-09] MEDS ORDERED: GLUCAGON FOR INJ 1 MG VIAL SQ PRN (01:58)
[2020-04-09] MEDS ORDERED: CARBOHYDRATES FOR HYPOGLYCEMIA PO PRN (01:58)
[2020-04-09] MEDS ORDERED: MAGNESIUM HYDROXIDE SUSP 30 ML UDC PO PRN (01:58)
[2020-04-09] MEDS ORDERED: GLUCOSE 40% GEL 15 GM TUBE PO PRN (01:58)
[2020-04-09] MEDS ORDERED: DEXTROSE 50% 50 ML SYRINGE IV PRN (01:58)
[2020-04-09] MEDS ORDERED: INFLUENZA VIRUS QUAD VACCINE 0.5 ML SYR IM ONE (02:44)
[2020-04-09] MEDS ORDERED: INFLUENZA ADMINISTRATION CHARGE ONE (02:44)
[2020-04-09] MEDS ORDERED: FUROSEMIDE 80 MG in SYRINGE 0 ML IV ONE (03:03)
--- NOTE | 2020-04-09 04:35 | History & Physical Report ---
Date of Service April 09, 2020 Assessment & Plan (1) Pneumonia due to COVID-19 virus: Pneumonia due to COVID-19 virus with hypoxia- Continue BiPAP, titrate downward as symptoms improve Dexamethasone 6 mg IV every morning Zinc sulfate 2020 mg p.o. every morning Duonebs every 4 hours while awake and every 2 hours when necessary. Azithromycin 500 mg IV daily Zosyn 3.375 mg IV every 12 hours Present on Admission?: Yes (2) Hypoxia: See above Present on Admission?: Yes (3) ARF (acute renal failure): Creatinine 16.10, calcium 5.3, magnesium 1.6 and BUN 125 upon admission. Consult nephrology Dr. Pinon, or probable dialysis in the a.m. Follow serial laboratories Present on Admission?: Yes (4) Diabetes mellitus with hyperglycemia: Hold glimepiride Placed on Accu-Cheks before meals and at bedtime with NovoLog coverage per scale check hemoglobin A1c Present on Admission?: Yes (5) Hypocalcemia: See above Given calcium gluconate 1 g IV in the ED Present on Admission?: Yes (6) Hypomagnesemia: See above Present on Admission?: Yes (7) Elevated troponin I level: The patient will be admitted to telemetry for serial cardiac enzymes, serial EKG's, cardiac rhythm monitoring and a 2-D echocardiogram with Dopplers. Likely type II TX, supply demand mismatch Present on Admission?: Yes (8) Hypoalbuminemia: Albumin IV to help with fluid balance in combination with Lasix IV Present on Admission?: Yes Admission and Anticipated Discharge Date Admission Date: April 09, 2020 History of Present Illness Chief Complaint: The patient presents to the emergency department with complaint of feeling generally weak, short of breath, coughing, generalized myalgias and arthralgias over the past few weeks, and developed chest discomfort with shortness of breath going up the stairs at home. Primary Care Provider: Jagdeep Turk MD The patient is a 64-year-old male with a past medical history including diabetes mellitus, right carpal tunnel syndrome, right hand cellulitis, CKD stage III, hyperbilirubinemia, hyponatremia, pneumonia, proteinuria, gout, iron deficiency, GERD, morbid obesity and hyperlipidemia. In addition to the symptoms noted above, patient reports that he remembers medications at least a week ago. Significant laboratories in the ED: Calcium 5.3, magnesium 1.6, troponin 0 0.06, BNP 20467, albumin 2.1, pro-Victor Manuel 1.15, BUN 125 and creatinine 16.10. COVID-19 test was positive. Chest x-ray showed ARDS/viral pneumonia picture. Patient arrived to the ED on CPAP due to severe hypoxia in the field, and was changed to BiPAP upon arrival. Allergies Allergy/AdvReac Type Severity Reaction Status Date / Time atorvastatin [From Lipitor] Allergy Unknown Verified 04/09/20 01:01 simvastatin [From Zocor] Allergy Unknown Verified 04/09/20 01:01 codeine AdvReac Intermediate Nausea Unverified 04/09/20 01:01 Home Medications Medication Instructions Recorded Confirmed Type rosuvastatin 10 mg tablet 10 mg PO DAILY #30 tab 11/03/18 Rx glimepiride 2 mg tablet 2 mg PO QAM #30 tab 06/03/19 Rx lisinopril 5 mg tablet 5 mg PO DAILY #30 tab 06/03/19 Rx allopurinol 100 mg tablet 100 mg PO DAILY #30 tab 06/06/19 Rx ferrous sulfate 325 mg (65 mg 325 mg PO UD tab 06/13/19 04/09/20 History iron) tablet pantoprazole 40 mg tablet,delayed 40 mg PO tab 06/13/19 06/13/19 History release Past Med/Surg History Medical History LINDSEY (acute kidney injury) Diabetes mellitus with hyperglycemia Surgical History (Updated 07/04/19 @ 14:15 by Anne Roman LPN) History of appendectomy History of incision and drainage Family History (Updated 06/13/19 @ 13:41 by Donna Kay MA) Mother Cancer Denies family history of Ovarian cancer Prostate cancer Myocardial infarction Breast cancer Colorectal cancer Social History Smoking Status: Never smoker Second Hand Exposure: Yes; Do You Dip or Chew Tobacco: No; Tobacco Cessation Education Requested by Patient: No Hx Alcohol Use: No Hx Substance Use: No Preferred Language: Mauritian Communication Ability: Effective Exterminator Required: No Beliefs That Will Affect Care: None marital status: single Current Living Situation: Family current occupational status: employed Other Information That Helps Us Care for You: No Feels Safe at Home: Yes Safety Concerns: Feels Safe At This Time Assistive Devices: None Review of Systems Review of Systems: The patient denies palpitations, lower extremity swelling, sore throat, fevers, chills, sweats, nausea, vomiting, diarrhea , constipation, abdominal pain, pelvic pain, blood in urine or stool, dysuria, urinary frequency or urgency, lightheadedness, dizziness, headache, memory loss, loss of consciousness, rash, abnormal bruising or bleeding, imbalance, focal weakness, numbness or tingling in arms or legs, back or neck pain, or night sweats. The review of systems is otherwise negative other than for that already noted above, and at least 10 systems have been reviewed. Physical Exam Physical Exam: The patient is awake, alert and oriented 3, well developed and well nourished, normocephalic and atraumatic, lying in bed and in mild to moderate distress, improving on BiPAP HEENT--PERRL, EOMI, mucous membranes and oropharynx dry. Neck--supple. No JVD. No bruits. Thyroid normal, trachea midline, no adenopathy. Heart--normal S1 and S2. No murmurs, rubs or gallops. Lungs--coarse breath sounds bilaterally. Mild to moderate respiratory distress, no accessory muscle use. Abdomen--normal bowel sounds and soft. Nontender. Nondistended. Morbid obesity Extremities--no cyanosis or clubbing. No edema. Dermatologic--normal skin turgor, normal color, no abnormal lymph nodes, no rash. Neurologic--cranial nerves II through XII grossly intact. Rheumatologic--limited exam due to respiratory status Psychiatric--normal affect. Results & Data Results & Data ([facility]) Vital Signs (Past 12 Hours) Vital Signs Temp Pulse Pulse Pulse Resp BP BP 04/09/20 04:02 97.7 F 80 22 04/09/20 03:12 83 04/09/20 02:31 85 16 04/09/20 02:05 98.4 F 88 22 191/110 H 04/09/20 01:00 84 25 H 04/09/20 00:45 82 21 193/96 H 04/09/20 00:30 85 27 H 201/96 H 04/09/20 00:26 89 23 208/100 H 04/09/20 00:00 84 23 203/98 H 04/08/20 23:45 84 28 H 201/112 H 04/08/20 23:30 86 31 H 200/104 H 04/08/20 23:15 83 25 H 179/99 H 04/08/20 23:00 87 20 196/97 H 04/08/20 22:45 85 23 177/88 H 04/08/20 22:30 87 28 H 188/94 H 04/08/20 22:15 90 25 H 197/92 H 04/08/20 22:00 92 H 22 205/96 H 04/08/20 21:45 96 H 30 H 207/107 H 04/08/20 21:30 97 H 37 H 220/102 H 04/08/20 21:25 103 H 33 H 04/08/20 21:17 100.6 F H 103 H 30 H 227/112 H BP Pulse Ox 04/09/20 04:02 181/98 H 98 04/09/20 03:12 04/09/20 02:31 97 04/09/20 02:05 100 04/09/20 01:00 99 04/09/20 00:45 100 04/09/20 00:30 100 04/09/20 00:26 100 04/09/20 00:00 100 04/08/20 23:45 100 04/08/20 23:30 100 04/08/20 23:15 100 04/08/20 23:00 100 04/08/20 22:45 100 04/08/20 22:30 100 04/08/20 22:15 100 04/08/20 22:00 100 04/08/20 21:45 100 04/08/20 21:30 100 04/08/20 21:25 100 04/08/20 21:17 100 Laboratory Results Laboratory Results WBC 11.33 K/uL (4.8-10.8) H 04/08/20 21:49 RBC 2.55 M/uL (4.7-6.1) L 04/08/20 21:49 Hgb 7.1 g/dL (14.0-18.0) L 04/08/20 21:49 Hct 21.5 % (42-52) L 04/08/20 21:49 MCV 84.3 fL (80-100) 04/08/20 21:49 MCH 27.8 pg (25-34) 04/08/20 21:49 MCHC 33.0 g/dL (32-36) 04/08/20 21:49 RDW Std Deviation 46.1 fL (36.4-46.3) 04/08/20 21:49 RDW Coeff of Inderjit 14.8 % (11.5-14.5) H 04/08/20 21:49 Plt Count 247 K/uL (130-400) 04/08/20 21:49 MPV 9.2 fL (7.4-10.4) 04/08/20 21:49 Immature Gran % (Auto) 0.4 % 04/08/20 21:49 Neut % (Auto) 89.2 % 04/08/20 21:49 Lymph % (Auto) 4.9 % 04/08/20 21:49 [place] % (Auto) 4.8 % 04/08/20 21:49 Eos % (Auto) 0.6 % 04/08/20 21:49 Baso % (Auto) 0.1 % 04/08/20 21:49 Neut # (Auto) 10.11 K/uL (1.4-6.5) H 04/08/20 21:49 Lymph # (Auto) 0.56 K/uL (1.2-3.4) L 04/08/20 21:49 [place] # (Auto) 0.54 K/uL (0.11-0.59) 04/08/20 21:49 Eos # (Auto) 0.07 K/uL (0-0.5) 04/08/20 21:49 Baso # (Auto) 0.01 K/uL (0-0.2) 04/08/20 21:49 Immature Gran # (Auto) 0.04 K/uL (0.00-0.02) H 04/08/20 21:49 RBC Morphology Unremarkable 04/08/20 21:49 PT 11.9 Seconds (9.0-12.0) 04/08/20 21:49 INR 1.2 (0.9-1.1) H 04/08/20 21:49 APTT 28.9 Seconds (21.0-31.0) 04/08/20 21:49 PTT Ratio 1.1 04/08/20 21:49 ABG pH 7.28 (7.35-7.45) L 04/08/20 22:41 ABG pCO2 30 mmHg (35-46) L 04/08/20 22:41 ABG pO2 156 mmHg (80-95) H 04/08/20 22:41 ABG HCO3 14 mmol/L (19-24) L 04/08/20 22:41 ABG O2 Saturation 97.7 % (90-95) H 04/08/20 22:41 ABG Base Excess -12.1 mEq/L (-9-1.8) L 04/08/20 22:41 Kennedy Test Pos (Pos) 04/08/20 22:41 Barometric Pressure 736.1 mm/Hg 04/08/20 22:41 Oxygen Given FIO2 40% 04/08/20 22:41 Sodium 136 mmol/L (136-145) 04/08/20 21:49 Potassium 4.7 mmol/L (3.5-5.1) 04/08/20 21:49 Chloride 101 mmol/L (98-107) 04/08/20 21:49 Carbon Dioxide 15 mmol/L (21-32) L 04/08/20 21:49 Anion Gap 19.0 (3-11) H 04/08/20 21:49 BUN 125 mg/dl (7-18) H 04/08/20 21:49 Creatinine 16.10 mg/dl (0.6-1.4) H* 04/08/20 21:49 Est Cr Clr Drug Dosing 6.0 ml/min 04/08/20 21:49 Est GFR ( Amer) 3.2 04/08/20 21:49 Est GFR (Non-Af Amer) 2.8 04/08/20 21:49 BUN/Creatinine Ratio 7.6 (10-20) L 04/08/20 21:49 Glucose 176 mg/dl (70-99) H 04/08/20 21:49 Lactate 0.7 mmol/L (0.4-2.0) 04/08/20 21:49 Calcium 5.3 mg/dl (8.5-10.1) L* 04/08/20 21:49 Magnesium 1.6 mg/dl (1.8-2.4) L 04/08/20 21:49 Total Bilirubin 0.4 mg/dl (0.2-1) 02/07/21 21:49 AST 22 U/L (15-37) 04/08/20 21:49 ALT 26 U/L (12-78) 04/08/20 21:49 Alkaline Phosphatase 481 U/L (45-117) H 04/08/20 21:49 Troponin I 0.060 ng/ml (0-0.045) H* 04/08/20 21:49 NT-Pro-B Natriuret Pep 03325 pg/ml (0-900) H 04/08/20 21:49 Total Protein 6.5 gm/dl (6.4-8.2) 04/08/20 21:49 Albumin 2.1 gm/dl (3.4-5.0) L 04/08/20 21:49 Globulin 4.4 gm/dl (2.5-4.0) H 04/08/20 21:49 Albumin/Globulin Ratio 0.5 (0.9-2) L 04/08/20 21:49 Procalcitonin 1.15 ng/ml (0-0.5) H 04/08/20 21:49 Urine Color Yellow 04/08/20 23:37 Urine Appearance Cloudy (Clear) A 04/08/20 23:37 Urine pH 5.5 (4.5-7.5) 04/08/20 23:37 Ur Specific [place] 1.020 (1.000-1.030) 04/08/20 23:37 Urine Protein 4+ (Negative) H 04/08/20 23:37 Urine Glucose (UA) 1+ (Negative) H 04/08/20 23:37 Urine Ketones Negative (Negative) 04/08/20 23:37 Urine Blood 2+ (Negative) H 04/08/20 23:37 Urine Nitrite Negative (Negative) 04/08/20 23:37 Urine Bilirubin Negative (Negative) 04/08/20 23:37 Urine Urobilinogen Negative (Negative) 04/08/20 23:37 Ur Leukocyte Esterase Trace (Negative) H 04/08/20 23:37 Urine WBC (Auto) 10-30 /hpf (0-5) H 04/08/20 23:37 Urine RBC (Auto) >30 /hpf (0-4) H 04/08/20 23:37 U Hyaline Cast (Auto) 0 /lpf (0-5) 04/08/20 23:37 U Epithel Cells (Auto) >30 /lpf (0-5) H 04/08/20 23:37 Urine Bacteria (Auto) Negative (Negative) 04/08/20 23:37 Ur Renal Epithelial Cell 0-5 /lpf (0-5) 04/08/20 23:37 Amorphous Sediment Present (None Prsent) A 04/08/20 23:37 COVID-19 Eval Order CovFluRsv at [facility] 04/08/20 21:53 SARS-CoV-2 (PCR) POSITIVE (Negative) A* 04/08/20 21:53 Influenza Type A (PCR) Negative (Neg) 04/08/20 21:53 Influenza Type B (PCR) Negative (Neg) 04/08/20 21:53 RSV (RT-PCR) Negative (Neg) 04/08/20 21:53 Blood Type O Positive 04/08/20 22:41 Blood Type Recheck O Positive 04/08/20 22:42 Antibody Screen NEGATIVE 04/08/20 22:41 Crossmatch See Detail 04/08/20 22:41 Diagnostic Findings [facility] Patient: JYOTI HARRISON (Male) : 59 Status: ER Date: 04/09/20 00:48 Room #: History: POSSIBLE HYDRONEPHROSIS, COVID+ Slices: [phone] Priors: Tech: Luba Dipesh @ [phone] Exams: CT ABDOMEN & PELVIS Without Contrast Contrast: Accession Numbers: [id number] Preliminary Findings Only See Final Report For Complete Findings CT ABDOMEN & PELVIS Without Contrast: Liver appears normal. There are splenic calcifications suggesting old granulomas. Pancreas appears normal. There is cholelithiasis. Stomach, small bowel, colon appear normal. The adrenals and kidneys and ureters appear normal. There is a [place] catheter in the bladder. Prostate appears normal. Vascular structures appear normal. There is no free peritoneal air or fluid Radiologist: Luis Rivas MD Study ready at 00:51 and initial results transmitted at 00:56 *This report constitutes a preliminary interpretation only. Non-acute findings felt to be unrelated to the clinical presentation may not be discussed in this report. The study will be interpreted and a final report will be generated by the local Radiologist the following shift. To reach the hospital radiology department call [phone]. If a discrepancy is found between the preliminary and final interpretations of this study, please notify us via our Client Portal at [email or web address], under QA Exams.You can also fax this report with a description of the discrepancy, or include the final report, to our daytime fax number [phone].If faxing, please indicate the severity of discrepancy using one of the following categories: [ ] 1 - Agree/Informational [ ] 2 - Unlikely to Affect Management [ ] 3 - Possible Eventual Change of Management [ ] 4 - Probable Immediate Change of Management For all other patient related information, please fax us at [phone]. [id number] [facility] Patient: JYOTI HARRISON (Male) : 59 Status: ER Date: 04/09/20 00:43 Room #: History: SOB, COVID + Slices: [phone] Priors: Tech: Luba Dipesh @ [phone] Exams: CT CHEST Without Contrast Contrast: Accession Numbers: [id number] Preliminary Findings Only See Final Report For Complete Findings ADDENDUM - Added by Luis Rivas MD on 04/09/2020 12:58 AM (-08:00) There are some calcifications in the right hemidiaphragm likely related to previous trauma or inflammation CT CHEST Without Contrast: Heart is normal in size. There is some left ventricular distention. Thoracic aorta appears normal. Thoracic esophagus appears normal. There are enlarged mediastinal lymph nodes. The largest node is in the right paratracheal space measuring 13 x 13 mm. There are multifocal areas of airspace consolidation and groundglass density. There are bilateral pleural fluid collections. The left pleural fluid collection as a lobulated contour suggesting areas of loculation. Impression: Multifocal pneumonia with pleural fluid collections and mediastinal lymph node enlargement Radiologist: Luis Rivas MD Study ready at 00:49 and initial results transmitted at 00:53 *This report constitutes a preliminary interpretation only. Non-acute findings felt to be unrelated to the clinical presentation may not be discussed in this report. The study will be interpreted and a final report will be generated by the local Radiologist the following shift. To reach the hospital radiology department call [phone]. If a discrepancy is found between the preliminary and final interpretations of this study, please notify us via our Client Portal at [email or web address], under QA Exams.You can also fax this report with a description of the discrepancy, or include the final report, to our daytime fax number [phone].If faxing, please indicate the severity of discrepancy using one of the following categories: [ ] 1 - Agree/Informational [ ] 2 - Unlikely to Affect Management [ ] 3 - Possible Eventual Change of Management [ ] 4 - Probable Immediate Change of Management For all other patient related information, please fax us at [phone]. [id number] Code Status & VTE Plan Code Status Full code VTE Prophylaxis Plan VTE Prophylaxis will be ordered: Yes Critical Care Time Critical Care Time: Yes Total Critical Care Time: 40 PG Care Time/CCT Total # of Minutes Spent Total Time Spent with Patient: Total time spent is greater than 50% in coordination of care (as documented) at patient's floor/unit and/or counseling patient: Critical Care Time: Yes Total Critical Care Time: 40 Coding Level of Care Code 63206 Initial Inpt Care Lvl 3 Diagnoses Pneumonia due to COVID-19 virus U07.1; J12.82 Hypoxia R09.02 ARF (acute renal failure) N17.9 Acute renal failure type: unspecified Diabetes mellitus with hyperglycemia E11.65 Hypocalcemia E83.51 Hypomagnesemia E83.42 Elevated troponin I level R77.8 Hypoalbuminemia E88.09 Additional Codes Critical Care Time - Critical Care Time: Yes ([id number]) Time Spent (min) 40 (1) ARF (acute renal failure) Acute renal failure type: unspecified Qualified Code(s): N17.9 - Acute kidney failure, unspecified
[2020-04-09] MEDS: ALBUMIN 25% 12.5 GM/50 ML VIAL IV SCH ×2 (04:37→05:36)
[2020-04-09] MEDS: hydrALAZINE HCL 20 MG/ML VIAL IV PRN ×3 (04:40→19:37)
[2020-04-09] MEDS ORDERED: PIPERACILL/TAZOBAC CONSULT ACTIVE PRN (04:54)
[2020-04-09] MEDS: HEPARIN SOD 5,000 UNIT/0.5 ML VIAL SQ SCH ×3 (05:47→22:18)
[2020-04-09] MEDS: METOPROLOL TARTRATE 1 MG/ML VIAL IV PRN ×2 (06:00→20:17)
[2020-04-09] MEDS ORDERED: PIPERACILLIN/TAZOBACTAM 4.5 GM in DEXTROSE 5% 100 ML IV SCH (06:00)
[2020-04-09] MEDS ORDERED: ALBUT/IPRATROP 3MG/0.5MG NEB 3 ML VIAL NEB SCH (07:00)
[2020-04-09] MEDS: NITROGLYCERIN 2% OINTMENT 30GM TUBE EXT SCH ×3 (07:46→18:07)
[2020-04-09 07:47] LABS: Hematocrit (blood only) 20.9 % (42-52); Mean Corpuscular Hgb Conc 33.5 g/dL (32-36); Mean Corpuscular Volume 83.6 fL (80-100); Mean Platelet Volume 9.4 fL (7.4-10.4); Platelet Count 228 K/uL (130-400); RDW Coefficient of Variation 14.8 % (11.5-14.5); RDW Standard Deviation 46.3 fL (36.4-46.3); White Blood Count 8.21 K/uL (4.8-10.8)
[2020-04-09 07:50] LABS: Echinocytes 1+; Immature Granulocytes # (auto) 0.04 K/uL (0.00-0.02); Immature Granulocytes % (auto) 0.5 %; Lymphocytes # (auto) 0.28 K/uL (1.2-3.4); Lymphocytes % (auto) 3.4 %; Monocytes # (auto) 0.08 K/uL (0.11-0.59); Neutrophils # (auto) 7.81 K/uL (1.4-6.5); Neutrophils % (auto) 95.1 %; Schistocytes 1+; Tear Drop Cells 1+
[2020-04-09 07:55] LABS: Albumin Globulin Ratio 0.5 (0.9-2); Albumin Level 2.3 gm/dl (3.4-5.0); Bilirubin,Total 0.4 mg/dl (0.2-1); Calcium 5.5 mg/dl (8.5-10.1); Creatinine Clr Calc Pharmacy 5.8 ml/min; Est GFR (African American) 3.2; Est GFR (Non-African American) 2.8; Globulin 4.3 gm/dl (2.5-4.0); Magnesium 1.7 mg/dl (1.8-2.4); Total Protein 6.6 gm/dl (6.4-8.2); Troponin I 0.112 ng/ml (0-0.045)
--- NOTE | 2020-04-09 07:59 | CT Scan Report ---
CT SCAN OF THE ABDOMEN AND PELVIS WITHOUT IV CONTRAST CLINICAL HISTORY: Covid. Renal insufficiency. COMPARISON STUDY: Abdominal CT dated 06/04/2017. TECHNIQUE: CT scan of the abdomen and pelvis is performed from the lung bases to the proximal femora. Images are reviewed in the axial, sagittal, and coronal planes. IV contrast was not administered for this examination. A dose lowering technique was utilized adhering to the principles of ALARA. CT DOSE: 1025.62 mGycm FINDINGS: Lung bases: The heart is normal in size and without pericardial effusion. Calcified pleural plaque is seen in the right lung base. There are left larger than right pleural effusions. Patchy airspace con solidation is seen at both lung bases. There is a small hiatal hernia. Liver: The unenhanced liver is cirrhotic in morphology and heterogeneous in attenuation. There is nod ularity of the hepatic surface contour. There is no intrahepatic biliary ductal dilatation. Gallbladder: There are calcified gallstones with no CT evidence of acute cholecystitis. Spleen: Calcification of the splenic capsule may be related to remote trauma. There are numerous calc ified splenic granulomas. The spleen is mildly enlarged measuring 13.7 cm in length. Pancreas: The unenhanced pancreas is grossly unremarkable. Adrenal glands: Unremarkable. Kidneys: The unenhanced kidneys are atrophic and without hydronephrosis. There are no renal calculi i dentified. There is no evidence of contour deforming renal mass lesion. Abdominal vasculature: The abdominal aorta is normal in course and caliber noting moderate to advance d atherosclerotic calcification. Bowel: There is no bowel obstruction. The appendix is not visualized. Postoperative change in the ri ght lower quadrant suggests previous appendectomy. Peritoneum: There is no intraperitoneal free air or abdominal ascites. There is a small fat-containin g umbilical hernia. Lymphadenopathy: None. Pelvic viscera: The bladder is decompressed around a [place] catheter and not well evaluated. Intralumi nal gas is likely related to recent segmentation. The prostate and seminal vesicles are normal as alice ged. There are small bilateral fat-containing inguinal hernias. Skeletal structures: No lytic or blastic lesions are seen. There is mild to moderate lumbosacral spon dylosis. Degenerative change is also seen in the sacroiliac joints and pubic symphysis. Soft tissues: There is body wall edema. IMPRESSION: 1. There are left larger right pleural effusions with bibasilar patchy airspace consolidation. This i s consistent with the reported history of a viral pneumonia. Radiographic follow-up to resolution is recommended. 2. No acute infectious or inflammatory findings are seen in the abdomen or pelvis. 3. Cirrhotic liver morphology. 4. Mild splenomegaly. 5. The kidneys are atrophic and without hydronephrosis. 6. Cholelithiasis. 7. There is anasarca of the body wall. 8. Additional findings as above. ACT 112: Negative or not required by law. Electronically signed by: Donnell Daniel M.D. 04/09/2020 7:58 AM
[2020-04-09] MEDS: ROSUVASTATIN CALCIUM 10 MG TAB PO SCH (08:25)
[2020-04-09] MEDS: PANTOprazole 40 MG TAB PO SCH (08:25)
[2020-04-09] MEDS: FERROUS SULFATE 325 MG TAB PO SCH (08:25)
--- NOTE | 2020-04-09 08:25 | XRay Report ---
XR chest 1V portable HISTORY: SEPSIS COMPARISON: Chest 07/03/2017. FINDINGS: No pneumothorax. Small bilateral pleural effusions. The heart remains enlarged. There are n ear diffuse bilateral airspace opacities, right greater than left. This favors a pneumonia. Right bas ilar calcified pleural plaques. IMPRESSION: 1. Near diffuse bilateral airspace opacities likely representing a viral pneumonia. 2. Small bilateral pleural effusions. 3. Stable cardiomegaly. ACT 112: Negative or not required by law. Electronically signed by: Harsha Roberts M.D. 04/09/2020 8:24 AM
[2020-04-09] MEDS: ZINC SULFATE 220 MG CAPSULE PO SCH (08:26)
[2020-04-09] MEDS: AZITHROMYCIN 500 MG in DEXTROSE 5% 250 ML IV SCH (08:26)
[2020-04-09] MEDS: INSULIN ASPART 100 UNITS/ML 3 ML PEN SC SCH ×4 (08:27→20:36)
--- NOTE | 2020-04-09 08:33 | CT Scan Report ---
CT OF THE CHEST WITHOUT IV CONTRAST CLINICAL HISTORY: Infiltrates. Shortness of breath. COMPARISON STUDY: Chest CT June 04, 2017. Chest radiograph April 08, 2020. CT DOSE: 694.07 mGycm TECHNIQUE: Axial images of the chest were obtained without IV contrast. Images were reviewed in the axial, sagittal, and coronal planes. IV contrast was not administered for this examination. Automat ed exposure control was utilized for the study. A dose lowering technique was utilized adhering to t he principles of ALARA. FINDINGS: Bilateral gynecomastia is noted. Note is made of mildly enlarged bilateral axillary lymph nodes. There are also mildly enlarged mediastinal lymph nodes. The heart is mildly enlarged. There is no pericardial effusion. Small to moderate left pleural effusion is noted. There is a trace right pl eural effusion. The central airways are patent. Extensive multifocal consolidation with adjacent grou ndglass opacity is present throughout the lungs. There is no cavitation. There is no pneumothorax. No acute fracture or suspicious lesion is identified within the bony thorax. The abdomen and pelvis sarah l be reported separately. Anasarca is noted. IMPRESSION: 1. Extensive multifocal consolidation with adjacent groundglass opacities within the lungs. The findi ngs are consistent with an infectious process. 2. Small to moderate left and small right pleural effusions. 3. Mildly enlarged mediastinal and bilateral axillary lymph nodes. These are likely reactive. ACT 112: Negative or not required by law. Electronically signed by: Amos Pedraza M.D. 04/09/2020 8:32 AM
[2020-04-09] MEDS: allopurinoL 100 MG TAB PO SCH (08:40)
[2020-04-09] MEDS ORDERED: ALBUT/IPRATROP 3MG/0.5MG NEB 3 ML VIAL NEB PRN (08:46)
--- NOTE | 2020-04-09 09:02 | Electrocardiogram Report ---
Test Reason : Blood Pressure : / mmHG Vent. Rate : 100 BPM Atrial Rate : 100 BPM P-R Int : 116 ms QRS Dur : 084 ms QT Int : 386 ms P-R-T Axes : 037 036 060 degrees QTc Int : 497 ms Poor data quality, interpretation may be adversely affected Sinus rhythm with Premature atrial complexes Prolonged QT Abnormal ECG When compared with ECG of 04-JUN-2017 17:54, Premature atrial complexes are now Present Confirmed by Que May ([id number]) on 04/09/2020 9:02:14 AM Referred By: REFERRED SELF Confirmed By:Que May
[2020-04-09] MEDS: dexAMETHasone 6 MG in SYRINGE 0 ML IV SCH (09:25)
[2020-04-09] MEDS ORDERED: SODIUM CHLORIDE 0.9% 250 ML IV PRN (10:00)
--- NOTE | 2020-04-09 11:18 | Critical Care Consultation ---
Date of Consultation April 09, 2020 Assessment & Plan (1) ARF (acute renal failure): Impression: 64-year-old male presenting with acute renal failure. He is in need of dialysis catheter placement and is appropriate for temporary HD cath. He has no bleeding diathesis. Recommendations: 1. The patient will undergo ultrasound-guided right internal jugular dual-lumen hemodialysis catheter placement. Follow-up chest x-ray. Management will be per nephrology and the primary service. We will sign off once line is placed. Feel free to contact us if we can be of additional assistance. History of Present Illness Attending Physician: Emelyn Hilliard DO History of Present Illness Asked by carbon blocks press operator to provide temporary hemodialysis access in this patient admitted with acute on chronic kidney disease. History is obtained from review the medical record and discussion with the patient. The patient is a 64-year-old male who presented to the emergency room last night complaining of weakness shortness of breath cough and generalized myalgias. He does have baseline chronic kidney disease. He was noted to have a markedly elevated creatinine at 16. Nephrology was consulted. Initially consulted vascular surgery for placement of a tunneled catheter however due to the patient's Covid status it was elected to proceed with a temporary catheter placement for now. The patient does not report fevers chills or night sweats. Is never had a bleeding issue. He was consented to line placement Allergies Allergy/AdvReac Type Severity Reaction Status Date / Time atorvastatin [From Lipitor] Allergy Unknown Verified 04/09/20 01:01 simvastatin [From Zocor] Allergy Unknown Verified 04/09/20 01:01 codeine AdvReac Intermediate Nausea Unverified 04/09/20 01:01 Home Medications Medication Instructions Recorded Confirmed Type rosuvastatin 10 mg tablet 10 mg PO DAILY #30 tab 11/03/18 Rx glimepiride 2 mg tablet 2 mg PO QAM #30 tab 06/03/19 Rx lisinopril 5 mg tablet 5 mg PO DAILY #30 tab 06/03/19 Rx allopurinol 100 mg tablet 100 mg PO DAILY #30 tab 06/06/19 Rx ferrous sulfate 325 mg (65 mg 325 mg PO UD tab 06/13/19 04/09/20 History iron) tablet pantoprazole 40 mg tablet,delayed 40 mg PO tab 06/13/19 06/13/19 History release Patient History Medical History LINDSEY (acute kidney injury) Diabetes mellitus with hyperglycemia Surgical History (Updated 07/04/19 @ 14:15 by Anne Roman LPN) History of appendectomy History of incision and drainage Family History (Updated 06/13/19 @ 13:41 by Donna Kay MA) Mother Cancer Denies family history of Ovarian cancer Prostate cancer Myocardial infarction Breast cancer Colorectal cancer Social History Smoking Status: Never smoker Second Hand Exposure: Yes; Do You Dip or Chew Tobacco: No; Tobacco Cessation Education Requested by Patient: No Hx Alcohol Use: No Hx Substance Use: No Preferred Language: Uzbek Communication Ability: Effective Director Of Home 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 No additions or deletions Physical Exam Physical Exam: The patient is awake, alert and oriented 3, well developed and well nourished, normocephalic and atraumatic, lying in bed and in mild to moderate distress, improving on BiPAP HEENT--PERRL, EOMI, mucous membranes and oropharynx dry. Neck--supple. No JVD. No bruits. Thyroid normal, trachea midline, no adenopathy. Heart--normal S1 and S2. No murmurs, rubs or gallops. Lungs--coarse breath sounds bilaterally. Mild to moderate respiratory distress, no accessory muscle use. Abdomen--normal bowel sounds and soft. Nontender. Nondistended. Morbid obesity Extremities--no cyanosis or clubbing. No edema. Dermatologic--normal skin turgor, normal color, no abnormal lymph nodes, no rash. Neurologic--cranial nerves II through XII grossly intact. Rheumatologic--limited exam due to respiratory status Psychiatric--normal affect. Results & Data Results & Data ([facility]) Vital Signs (Past 12 Hours) Vital Signs Temp Pulse Pulse Pulse Resp BP BP 04/09/20 11:04 36.4 C L 80 23 04/09/20 07:40 36.6 C 79 20 04/09/20 07:27 67 04/09/20 07:15 74 20 04/09/20 06:00 82 196/102 H 04/09/20 04:02 36.5 C 80 22 04/09/20 03:12 83 04/09/20 02:31 85 16 04/09/20 02:05 36.9 C 88 22 191/110 H 04/09/20 01:00 84 25 H 04/09/20 00:45 82 21 193/96 H 04/09/20 00:30 85 27 H 201/96 H 04/09/20 00:26 89 23 208/100 H 04/09/20 00:00 84 23 203/98 H 04/08/20 23:45 84 28 H 201/112 H 04/08/20 23:30 86 31 H 200/104 H 04/08/20 23:15 83 25 H 179/99 H BP Pulse Ox 04/09/20 11:04 140/78 94 04/09/20 07:40 198/101 H 97 04/09/20 07:27 04/09/20 07:15 100 04/09/20 06:00 04/09/20 04:02 181/98 H 98 04/09/20 03:12 04/09/20 02:31 97 04/09/20 02:05 100 04/09/20 01:00 99 04/09/20 00:45 100 04/09/20 00:30 100 04/09/20 00:26 100 04/09/20 00:00 100 04/08/20 23:45 100 04/08/20 23:30 100 04/08/20 23:15 100 Laboratory Results 04/09/20 06:09 04/09/20 06:[address] of the chest from 04/09/2020 was reviewed. Bilateral pleural effusions are no tish with compressive basilar atelectasis as well as patchy parenchymal airspace opacities. Coding Level of Care Code 52532 Inpt Consult Level 3 Diagnoses ARF (acute renal failure) N17.9 Acute renal failure type: unspecified (1) ARF (acute renal failure) Acute renal failure type: unspecified Qualified Code(s): N17.9 - Acute kidney failure, unspecified
--- NOTE | 2020-04-09 11:21 | Procedure Note ---
Procedure Note Date of Service April 09, 2020 CENTRAL LINE PROCEDURE NOTE: Procedure: Central Line Placement/hemodialysis catheter Provider: Alfonso Mayberry MD Indication: Central Drug Administration, Poor Venous Access, Multiple Lab Draws Necessary, etc. Anesthesia: 5 ML lidocaine 1% Site: Right internal jugular Consent was signed and placed on the chart prior to procedure. Indication, risks, and benefits were explained at length. A time-out was completed verifying correct patient, procedure, site, positioning, and implants(s) or special equipment if applicable. Patients right neck was cleansed and draped in the typical sterile fashion using Chloraprep. The Internal Jugular Vein and Carotid Artery were identified using ultrasound. The superficial tissue was anesthetized using 5 mL of 1% lidocaine without epinephrine under direct visualization with the ultrasound. After adequate anesthetization was achieved, the Internal Jugular vein was cannulated under direct ultrasound guidance using an introducer needle on a syringe. Good venous blood return was maintained prior to removal of syringe from introducer needle. Using Seldinger Technique, a guide wire was advanced through the introducer needle without resistance. The introducer needle was removed and ultrasound images were obtained of the guide wire within the Internal Jugular Vein and saved to the patients medical record. A small incision was made in penetrating fashion at the guide wire insertion site utilizing an 11 blade scalpel. The dilator was advanced to the vessel without resistance. The dilator was exchanged for the triple lumen catheter which was advanced into the vessel without resistance. The guide wire was removed intact from the catheter without issue. Claves were placed on each catheter tip with confirmation of good blood flow from each lumen. Each port was easily flushed with sterile saline. The catheter was placed at 20 cm and sutured in place. BioPatch was applied to the catheter and a sterile Tegaderm dressing was applied over the catheter with careful attention to sterility. Patient tolerated procedure well. No immediate complications were met. Post procedure x-ray was ordered and is currently pending Images were not saved due to technical issues and the patient being on the [facility] unit. Coding CPT Codes Tubes, Drains, and Vasc Access - Tubes, Drains, and Vasc Access: [id number] Insertion of cannula for hemodialysis ([id number]) Tubes, Drains, and Vasc Access - Tubes, Drains, and Vasc Access: [id number] Ultrasound Guidance For Vascular ([id number]) [facility] [place] Procedure Codes (Charges) Tubes, Drains, and Vasc Access Procedure 1: Tubes, Drains, and Vasc Access: [id number] Insertion of cannula for hemodialysis Procedure 2: Tubes, Drains, and Vasc Access: [id number] Ultrasound Guidance For Vascular
--- NOTE | 2020-04-09 11:34 | Nephrology Consultation ---
Date of Consultation April 09, 2020 Assessment & Plan (1) ESRD needing dialysis: 64 y o m with history of baseline advanced CKD, admitted with COVID-19 pneumonia, generalized volume overload, LINDSEY, anemia and multiple critical electrolyte abnormality. With underlying baseline advanced CKD, anemia, hypocalcemia and electrolyte abnormality, all points towards end-stage renal disease instead of LINDSEY. Advanced CKD, end-stage renal disease most likely secondary to diabetic and hypertensive nephropathy, which progressively worsened rather rapidly as patient has been off of any medical care or medication for last more than a year. --discussed in detail with the patient regarding the current status of his kidney function and and other critical abnormalities including anemia and electrolyte abnormality. Recommended to start on dialysis. Considering COVID pneumonia, will have to go with temporary dialysis catheter at this time. After detailed discussion patient was agreeable to start on dialysis. Requested acquisition manager to help with temporary dialysis catheter placement. After 10 days, temporary dialysis catheter can be removed and a tunneled dialysis catheter can be placed. Eventually will need to evaluate for AV fistula. Will request social service to start preparation for outpatient dialysis placement at [facility]. --will plan for 2 hours dialysis with low blood flow this afternoon, will transfuse 1 unit PRBC --check iron study, PTH, phosphate --dose medications for GFR less than 10, left arm nephrology precaution for future AV fistula Will follow Thank you for allowing me to participate in your patient's care. It was a pleasure to see Librado (2) Acidosis: (3) Hypocalcemia: (4) Fluid overload: (5) Pneumonia due to COVID-19 virus: (6) Proteinuria: History of Present Illness Reason for Consultation: End-stage renal disease, volume overload, anemia Attending Physician: Emelyn Hilliard DO History of Present Illness Mr. Moon is a 64-year-old male admitted to the hospital with COVID pneumonia, LINDSEY and anemia. Nephrology consult was requested to evaluate for need for emergency dialysis. Electronic medical records are reviewed in detail during patient's visit. Librado has presented to the ER yesterday with 1 week history of progressive shortness of breath, cough, fever, generalized fatigue and weakness. She also noticed progressive lower extremity edema over last 2-3 weeks. In ER he was found to have hypertensive urgency and volume overload. COVID-19 rapid test was positive. Lab showed AK with creatinine 15, BUN 128, metabolic acidosis, hypocalcemia and anemia. Was given nitroglycerin x2 and was placed on CPAP. Respiratory status slightly improved. Given Bumex 4 mg IV with increased urine output and improvement in respiratory status. Hemoglobin was found to be 7.1, no history of any GI bleeding or hematuria. He reports voiding normally at home. Was given dexamethasone, empiric antibiotic. Record review shows he has advanced CKD, baseline creatinine around 2 with some variability. Urinalysis showed proteinuria and hematuria. CT abdomen pelvis was negative for hydronephrosis. He has history of hypertension and diabetes however he reports not taking any medication for last more than a year as he did not have any insurance, denied taking NSAID recently. No history of retinopathy. No known history of coronary artery disease or CHF. No family history of chronic kidney disease or end-stage renal disease. Allergies Allergy/AdvReac Type Severity Reaction Status Date / Time atorvastatin [From Lipitor] Allergy Unknown Verified 04/09/20 01:01 simvastatin [From Zocor] Allergy Unknown Verified 04/09/20 01:01 codeine AdvReac Intermediate Nausea Unverified 04/09/20 01:01 Home Medications Medication Instructions Recorded Confirmed Type rosuvastatin 10 mg tablet 10 mg PO DAILY #30 tab 11/03/18 Rx glimepiride 2 mg tablet 2 mg PO QAM #30 tab 06/03/19 Rx lisinopril 5 mg tablet 5 mg PO DAILY #30 tab 06/03/19 Rx allopurinol 100 mg tablet 100 mg PO DAILY #30 tab 06/06/19 Rx ferrous sulfate 325 mg (65 mg 325 mg PO UD tab 06/13/19 04/09/20 History iron) tablet pantoprazole 40 mg tablet,delayed 40 mg PO tab 06/13/19 06/13/19 History release Patient History Medical History LINDSEY (acute kidney injury) Diabetes mellitus with hyperglycemia Surgical History (Updated 07/04/19 @ 14:15 by Anne Roman LPN) History of appendectomy History of incision and drainage Family History (Updated 06/13/19 @ 13:41 by Donna Kay MA) Mother Cancer Denies family history of Ovarian cancer Prostate cancer Myocardial infarction Breast cancer Colorectal cancer Social History Smoking Status: Never smoker Second Hand Exposure: Yes; Do You Dip or Chew Tobacco: No; Tobacco Cessation Education Requested by Patient: No Hx Alcohol Use: No Hx Substance Use: No Preferred Language: Guamanian Communication Ability: Effective 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 Beliefs That Will Affect Care: None marital status: single Current Living Situation: Family current occupational status: employed Other Information That Helps Us Care for You: No Feels Safe at Home: Yes Safety Concerns: Feels Safe At This Time Assistive Devices: None Review of Systems Review of Systems: All systems reviewed & are unremarkable except as noted in Subjective Physical Exam Constitutional: WD/WN, vitals as above + ill appearing; no acute distress Eyes: PERRL, conjunctivae normal, anicteric sclerae ENMT: external ear and nose normal, oropharynx normal Ears: no hearing impairment Pallor Neck: normal visual inspection and trachea midline Respiratory: normal respiratory effort, lungs clear to auscultation + cough Auscultation: + crackles and + rales Cardiovascular: Rate/Rhythm: regular rate and regular rhythm Heart Sounds: normal S1 and normal S2 Extremities: + edema Gastrointestinal (Abdomen): normal bowel sounds, soft, nontender, no hepatosplenomegaly Inspection/Auscultation: normal bowel sounds and + abdominal edema Percussion/Palpation: abdomen soft; abdomen nontender, no guarding and abdomen not rigid Musculoskeletal: Head/Neck/Chest: head atraumatic Extremities: extremities normal to inspection Gait: normal gait Skin: no rashes, warm and dry Neurologic: moves all extremities and awake; no focal motor deficits and not confused Psychiatric: A+Ox3, euthymic affect Results & Data ([facility]) Vital Signs (Past 12 Hours) Vital Signs Temp Pulse Pulse Pulse Resp BP BP 04/09/20 11:04 36.4 C L 80 23 04/09/20 07:40 36.6 C 79 20 04/09/20 07:27 67 04/09/20 07:15 74 20 04/09/20 06:00 82 196/102 H 04/09/20 04:02 36.5 C 80 22 04/09/20 03:12 83 04/09/20 02:31 85 16 04/09/20 02:05 36.9 C 88 22 191/110 H 04/09/20 01:00 84 25 H 04/09/20 00:45 82 21 193/96 H 04/09/20 00:30 85 27 H 201/96 H 04/09/20 00:26 89 23 208/100 H 04/09/20 00:00 84 23 203/98 H 04/08/20 23:45 84 28 H 201/112 H 04/08/20 23:30 86 31 H 200/104 H BP Pulse Ox 04/09/20 11:04 140/78 94 04/09/20 07:40 198/101 H 97 04/09/20 07:27 04/09/20 07:15 100 04/09/20 06:00 04/09/20 04:02 181/98 H 98 04/09/20 03:12 04/09/20 02:31 97 04/09/20 02:05 100 04/09/20 01:00 99 04/09/20 00:45 100 04/09/20 00:30 100 04/09/20 00:26 100 04/09/20 00:00 100 04/08/20 23:45 100 04/08/20 23:30 100 PG Care Time/CCT Total # of Minutes Spent Total Time Spent with Patient: Total time spent is greater than 50% in coordination of care (as documented) at patient's floor/unit and/or counseling patient: Coding Level of Care Code 30863 Inpt Consult Level 5 Diagnoses ESRD needing dialysis N18.6; Z99.2 Acidosis E87.2 Hypocalcemia E83.51 Fluid overload E87.70 Hypervolemia type: unspecified Pneumonia due to COVID-19 virus U07.1; J12.82 Proteinuria R80.9 (1) Fluid overload Hypervolemia type: unspecified Qualified Code(s): E87.70 - Fluid overload, unspecified
[2020-04-09] MEDS: amLODIPine BESYLATE 5 MG TAB PO SCH (11:47)
--- NOTE | 2020-04-09 11:49 | XRay Report ---
XR chest 1V portable CLINICAL HISTORY: line placement COMPARISON STUDY: Chest radiograph April 08, 2020. Chest CT April 09, 2020. FINDINGS: There is no pneumothorax placement of a right internal jugular central line. Catheter tip p rojects over the cavoatrial junction and is partially obscured on this examination. Extensive bilater al airspace opacities have progressed since prior chest CT. Bilateral pleural effusions have increase d. Cardiomediastinal silhouette is stable. IMPRESSION: 1. No pneumothorax following placement of a right internal jugular central line. 2. Progression of extensive bilateral airspace opacities consistent with an infectious process. 3. Slight increase in bilateral pleural effusions, left larger than right. ACT 112: Negative or not required by law. Electronically signed by: Amos Pedraza M.D. 04/09/2020 11:47 AM
[2020-04-09 12:28] LABS: Hepatitis B Surface Ab Quant < 3.10 mIU/mL (>or=10mIU/mL Immune); Hepatitis B Surface Antibody Non-Immune
[2020-04-09 12:39] LABS: Hepatitis B Surf Ag Rflx Conf Neg (Neg)
--- NOTE | 2020-04-09 12:57 | Hospitalist Progress Note ---
Date of Service April 09, 2020 Assessment & Plan (1) Pneumonia due to COVID-19 virus: Pneumonia due to COVID-19 virus with hypoxia- Continue BiPAP, titrate downward as symptoms improve Dexamethasone 6 mg IV every morning Zinc sulfate 2020 mg p.o. every morning Duonebs every 4 hours while awake and every 2 hours when necessary. Azithromycin 500 mg IV daily Zosyn 3.375 mg IV every 12 hours (2) Hypoxia: See above (3) ARF (acute renal failure): Creatinine 16.10, calcium 5.3, magnesium 1.6 and BUN 125 upon admission. Consult nephrology Dr. Pinon, or probable dialysis in the a.m. Follow serial laboratories (4) Diabetes mellitus with hyperglycemia: Hold glimepiride Placed on Accu-Cheks before meals and at bedtime with NovoLog coverage per scale check hemoglobin A1c (5) Hypocalcemia: See above Given calcium gluconate 1 g IV in the ED As per renal (6) Hypomagnesemia: See above As per renal (7) Elevated troponin I level: The patient will be admitted to telemetry for serial cardiac enzymes, serial EKG's, cardiac rhythm monitoring and a 2-D echocardiogram with Dopplers. Likely type II TX, supply demand mismatch Repeat is minimally elevated over initial ECHO pending (8) Hypoalbuminemia: Albumin IV to help with fluid balance in combination with Lasix IV Admission and Anticipated Discharge Date Admission Date: April 09, 2020 Subjective Pt states he still feels SOB with ambulation. He is better at rest as long as he has on O2. No chest pain. Tolerating PO without issue. Pt denies fever, abd pain, n/v/c/d, LE pain or swelling. Review of Systems Review of Systems: Pertinent positives and negatives reviewed in HPI--all others negative Physical Exam Constitutional: WD/WN, vitals as above Eyes: normal visual hicks by confrontation and + anicteric sclerae Neck: normal visual inspection and trachea midline Respiratory: normal respiratory effort; no respiratory distress Auscultation: + crackles (with coarse lung sounds); no wheezes Cardiovascular: Rate/Rhythm: regular rate and regular rhythm Gastrointestinal (Abdomen): Inspection/Auscultation: abdomen not distended Percussion/Palpation: abdomen soft; abdomen nontender Musculoskeletal: Head/Neck/Chest: normocephalic and head atraumatic negative for edema, peripheral pulses intact Skin: no rashes, warm and dry Neurologic: awake; not confused Speech / Cognition: normal speech Psychiatric: A+Ox3, euthymic affect Results & Data Results & Data ([facility]) Vital Signs (Past 12 Hours) Vital Signs Temp Pulse Pulse Pulse Resp BP BP 04/09/20 11:04 36.4 C L 80 23 04/09/20 07:40 36.6 C 79 20 04/09/20 07:27 67 04/09/20 07:15 74 20 04/09/20 06:00 82 196/102 H 04/09/20 04:02 36.5 C 80 22 04/09/20 03:12 83 04/09/20 02:31 85 16 04/09/20 02:05 36.9 C 88 22 191/110 H 04/09/20 01:00 84 25 H BP Pulse Ox 04/09/20 11:04 140/78 94 04/09/20 07:40 198/101 H 97 04/09/20 07:27 04/09/20 07:15 100 04/09/20 06:00 04/09/20 04:02 181/98 H 98 04/09/20 03:12 04/09/20 02:31 97 04/09/20 02:05 100 04/09/20 01:00 99 PG Care Time/CCT Total # of Minutes Spent Total Time Spent with Patient: Total time spent is greater than 50% in coordination of care (as documented) at patient's floor/unit and/or counseling patient: Coding Level of Care Code 36450 Subseq Hosp Care Lvl 3 Diagnoses Pneumonia due to COVID-19 virus U07.1; J12.82 Hypoxia R09.02 ARF (acute renal failure) N17.9 Acute renal failure type: unspecified Diabetes mellitus with hyperglycemia E11.65 Hypocalcemia E83.51 Hypomagnesemia E83.42 Elevated troponin I level R77.8 Hypoalbuminemia E88.09 (1) ARF (acute renal failure) Acute renal failure type: unspecified Qualified Code(s): N17.9 - Acute kidney failure, unspecified
[2020-04-09 13:11] LABS: Phosphorus 12.2 mg/dl (2.5-4.9)
[2020-04-09] MEDS: PIPERACILLIN/TAZOBACTAM 4.5 GM in DEXTROSE 5% 100 ML IV SCH (14:47)
[2020-04-10] MEDS: NITROGLYCERIN 2% OINTMENT 30GM TUBE EXT SCH ×5 (00:24→23:45)
[2020-04-10] MEDS: PIPERACILLIN/TAZOBACTAM 4.5 GM in DEXTROSE 5% 100 ML IV SCH ×2 (01:53→14:10)
[2020-04-10 06:44] LABS: Hematocrit (blood only) 21.3 % (42-52); Hemoglobin 7.2 g/dL (14.0-18.0); Immature Granulocytes # (auto) 0.02 K/uL (0.00-0.02); Immature Granulocytes % (auto) 0.2 %; Lymphocytes # (auto) 0.71 K/uL (1.2-3.4); Lymphocytes % (auto) 7.5 %; Mean Corpuscular Hemoglobin 27.3 pg (25-34); Mean Corpuscular Hgb Conc 33.8 g/dL (32-36); Mean Corpuscular Volume 80.7 fL (80-100); Mean Platelet Volume 9.5 fL (7.4-10.4); Monocytes # (auto) 0.04 K/uL (0.11-0.59); Monocytes % (auto) 0.4 %; Neutrophils # (auto) 8.71 K/uL (1.4-6.5); Neutrophils % (auto) 91.9 %; Platelet Count 237 K/uL (130-400); RDW Coefficient of Variation 15.6 % (11.5-14.5); RDW Standard Deviation 46.6 fL (36.4-46.3); Red Blood Count 2.64 M/uL (4.7-6.1); White Blood Count 9.48 K/uL (4.8-10.8)
[2020-04-10 07:16] LABS: Tear Drop Cells 1+
[2020-04-10] MEDS: HEPARIN SOD 5,000 UNIT/0.5 ML VIAL SQ SCH ×3 (07:25→21:01)
[2020-04-10 07:27] LABS: Albumin Globulin Ratio 0.5 (0.9-2); BUN Creatinine Ratio 8.7 (10-20); Bilirubin,Total 0.3 mg/dl (0.2-1); Calcium 5.5 mg/dl (8.5-10.1); Est GFR (Non-African American) 3.5; Globulin 3.9 gm/dl (2.5-4.0); Magnesium 1.9 mg/dl (1.8-2.4); Total Protein 5.9 gm/dl (6.4-8.2)
[2020-04-10] MEDS ORDERED: SODIUM CHLORIDE 0.9% 250 ML IV PRN (08:12)
[2020-04-10] MEDS: INSULIN ASPART 100 UNITS/ML 3 ML PEN SC SCH ×4 (08:30→21:08)
[2020-04-10] MEDS ORDERED: CALCIUM GLUCONATE 10% 2,000 MG in SODIUM CHLORIDE 0.9% 50 ML IV ONE (08:30)
[2020-04-10 09:51] LABS: Folate (Folic Acid) 6.9 ng/ml (>5.38)
--- NOTE | 2020-04-10 10:27 | Nephrology Progress Note ---
Date of Service April 10, 2020 Assessment & Plan (1) ESRD needing dialysis: 64 y o m with history of baseline advanced CKD, admitted with COVID-19 pneumonia, generalized volume overload, LINDSEY, anemia and multiple critical electrolyte abnormality. With underlying baseline advanced CKD, anemia, hypocalcemia and electrolyte abnormality, all points towards end-stage renal disease instead of LINDSEY. Advanced CKD, end-stage renal disease most likely secondary to diabetic and hypertensive nephropathy, which progressively worsened rather rapidly as patient has been off of any medical care or medication for last more than a year. Started on hemodialysis on 04/09/2020 via temporary dialysis catheter considering COVID-19 pneumonia. --continue dialysis, 3 hours today via temporary dialysis catheter at this time. After detailed discussion patient was agreeable to start on dialysis. After 10 days, temporary dialysis catheter can be removed and a tunneled dialysis catheter can be placed. Eventually will need to evaluate for AV fistula. Requested social service to start preparation for outpatient dialysis placement at [facility]. --will transfuse 2 units PRBC today, Epogen 18138 units x 1 dose, start on Venofer 200 mg IV for total 5 doses. Check B12, folate, fecal occult blood test for any evidence of GI blood loss --start on Renvela 1 tab with each meal as phosphate binder --dose medications for GFR less than 10, left arm nephrology precaution for future AV fistula Will follow (2) Acidosis: (3) Hypocalcemia: (4) Fluid overload: (5) Pneumonia due to COVID-19 virus: (6) Proteinuria: Admission and Anticipated Discharge Date Admission Date: April 09, 2020 Subjective Ilbrado was seen and examined in his room this morning. He continues to feel tired and shortness of breath with activity but much better compared to prior to admission. Appetite still low but started to improve. Urine output has been low. Has been tolerating dialysis. Currently getting 2nd dialysis treatment for 3 hours. Hemoglobin remain low despite receiving 1 unit of blood transfusion yesterday. Review of Systems Review of Systems: All systems reviewed & are unremarkable except as noted in Subjective Physical Exam Constitutional: WD/WN, vitals as above + ill appearing; no acute distress Eyes: Pallor ENMT: external ear and nose normal, oropharynx normal Ears: no hearing impairment Neck: normal visual inspection and trachea midline Respiratory: normal respiratory effort, lungs clear to auscultation + cough Cardiovascular: Rate/Rhythm: regular rate and regular rhythm Heart Sounds: normal S1 and normal S2 Extremities: + edema Skin: no rashes, warm and dry Neurologic: moves all extremities and awake; no focal motor deficits and not confused Psychiatric: A+Ox3, euthymic affect Results & Data ([facility]) Vital Signs (Past 12 Hours) Vital Signs Temp Pulse Pulse Pulse Resp BP BP 04/10/20 10:00 36.6 C 85 16 171/86 H 04/10/20 09:53 36.6 C 81 16 151/78 H 04/10/20 09:40 80 159/70 H 04/10/20 09:20 81 159/79 H 04/10/20 09:08 36.6 C 82 04/10/20 07:32 36.6 C 73 20 143/73 H 04/10/20 07:15 77 04/10/20 03:54 37.0 C 79 20 145/79 H 04/09/20 23:32 36.9 C 76 19 157/74 H Pulse Ox 04/10/20 10:00 04/10/20 09:53 94 04/10/20 09:40 04/10/20 09:20 04/10/20 09:08 04/10/20 07:32 95 04/10/20 07:15 04/10/20 03:54 93 04/09/20 23:32 92 PG Care Time/CCT Total # of Minutes Spent Total Time Spent with Patient: Total time spent is greater than 50% in coordination of care (as documented) at patient's floor/unit and/or counseling patient: Coding Level of Care Code 56250 Subseq Hosp Care Lvl 3 Diagnoses ESRD needing dialysis N18.6; Z99.2 Acidosis E87.2 Hypocalcemia E83.51 Fluid overload E87.70 Hypervolemia type: unspecified Pneumonia due to COVID-19 virus U07.1; J12.82 Proteinuria R80.9 (1) Fluid overload Hypervolemia type: unspecified Qualified Code(s): E87.70 - Fluid overload, unspecified
[2020-04-10] MEDS: AZITHROMYCIN 500 MG in DEXTROSE 5% 250 ML IV SCH (10:29)
[2020-04-10] MEDS: FERROUS SULFATE 325 MG TAB PO SCH (10:30)
[2020-04-10] MEDS: ROSUVASTATIN CALCIUM 10 MG TAB PO SCH (10:30)
[2020-04-10] MEDS: allopurinoL 100 MG TAB PO SCH (10:30)
[2020-04-10] MEDS: ZINC SULFATE 220 MG CAPSULE PO SCH (10:30)
[2020-04-10] MEDS: PANTOprazole 40 MG TAB PO SCH (10:30)
[2020-04-10] MEDS: dexAMETHasone 6 MG in SYRINGE 0 ML IV SCH (10:31)
[2020-04-10] MEDS: amLODIPine BESYLATE 5 MG TAB PO SCH ×2 (10:31→12:42)
[2020-04-10] MEDS ORDERED: EPOETIN ALFA 40,000 UNITS/ML VIAL IV ONE (10:45)
[2020-04-10] MEDS: IRON SUCROSE 200 MG in 0.9 % SODIUM CHLORIDE 100 ML IV SCH (11:25)
[2020-04-10] MEDS: SEVELAMER HCL 800 MG TABLET PO SCH ×2 (12:38→17:30)
[2020-04-10] MEDS: ONDANSETRON INJ 2 MG/ML 2 ML VIAL IV PRN ×2 (13:58→21:01)
--- NOTE | 2020-04-10 15:48 | Hospitalist Progress Note ---
Date of Service April 10, 2020 Assessment & Plan (1) ESRD needing dialysis: Presented with a creatinine of 16, BUN 125 With a history of CKD stage IV-V in the past and no ongoing medical care for the last year due to having no insurance Had temporary dialysis catheter placed on 04/09 by cane stripper Has received hemodialysis on 04/09, and 04/10 Electrolytes are improving, remains hypertensive and volume overloaded with hypoxia and pulmonary edema. Remains with metabolic acidosis, hypocalcemia, and severe anemia as below. Appreciate nephrology consultation Plan for hemodialysis again tomorrow and has outpatient referrals to set up outpatient hemodialysis Follow renal panel in the morning along with CBC Continue sevelamer, start Nephrocaps, receiving IV iron and Epogen -Renally dose medications (2) Anemia: Hemoglobin remains at 7.2 despite 1 unit PRBCs on 04/09 No gross bleeding from anywhere. Most likely secondary to anemia of chronic kidney disease Transferrin saturation 20% B12 is normal, folate low normal at 6 Nephrology ordered 5 doses of IV Venofer Continue p.o. ferrous sulfate Transfused 2 more units of PRBCs with dialysis on 04/10 Hemoccult stool pending Start Nephrocaps with folate Follow CBC in the morning (3) Pneumonia due to COVID-19 virus: Pneumonia due to COVID-19 virus with hypoxia-initially required BiPAP and is now weaned down to 3 L nasal cannula after volume removal with IV Lasix as well as hemodialysis and starting dexamethasone Continue dexamethasone 6 mg IV every morning x10-day course Continue Duonebs every 4 hours while awake and every 2 hours when necessary. Procalcitonin was elevated at 1.1 so may be secondary bacterial involvement Continue azithromycin but reduce dose to 250 mg IV daily x5-day course Continue Zosyn x7-day course Follow chest x-ray to resolution (4) Hypoxia: See above, secondary to volume overload from renal failure as well as Covid-19 pneumonia Improving (5) Hypocalcemia: Calcium level severely low today at 5.5 however corrected for hypoalbuminemia is 7.1 Giving calcium gluconate 2 g IV today Follow calcium and albumin levels in the morning (6) Diabetes mellitus with hyperglycemia: Hold glimepiride from home Blood sugars are better controlled today Placed on Accu-Cheks before meals and at bedtime with NovoLog coverage per scale-we will lower goal range and tighten down correction factor check hemoglobin [id number] (7) Ileus: With mild abdominal distention today and some nausea with vomiting. He is passing flatus but has not moved his bowels in 2 days Likely secondary to uremia Antiemetics as needed for nausea Reduce diet down to clear liquids only If abdomen still distended in the morning, check KUB (8) Elevated troponin I level: Troponin mildly elevated at 0.06/0.112 Repeat is minimally elevated over initial He has no chest pain, ECG was without ischemic changes Most likely myocardial demand ischemia in the setting of renal failure and Covid-19 with profound hypoxia Cannot get echo and less urgent as he is a Covid patient and I do not feel this is urgent (9) Hypoalbuminemia: Albumin is 2.0 Secondary to acute illness and poor nutrition He was given IV albumin initially upon admission (10) Homelessness: He mostly lives out of his truck but does sleep at his sister's house although he reports his sister officially evicted him today while he was in the hospital Case management is involved (11) Hypomagnesemia: Replaced Resolved (12) GERD (gastroesophageal reflux disease): No acute issues Continue home Protonix (13) DVT prophylaxis: Heparin SQ Disposition-continued stay on PCU Admission and Anticipated Discharge Date Admission Date: April 09, 2020 Subjective Patient reports he had nausea and vomiting after dialysis today. But he was currently sleeping when I saw him and said that he was feeling better after he woke up. He denies any chest pain. He does feel short of breath at times. No abdominal pains. Telemetry with normal sinus rhythm with rates in the 70s to 80s with PACs Review of Systems Review of Systems: All systems reviewed & are unremarkable except as noted in HPI & below Physical Exam Constitutional: WD/WN, vitals as above + ill appearing; no acute distress Eyes: + anicteric sclerae Neck: trachea midline, no thyromegaly Respiratory: normal respiratory effort Auscultation: + crackles (At the bases) and + rhonchi; no wheezes Cardiovascular: Rate/Rhythm: regular rate and regular rhythm Heart Sounds: no murmur Extremities: + edema (1+ pitting edema of the legs bilaterally) and + vascular access device (Right IJ catheter without surrounding erythema) Chest (Breasts): Chest: normal inspection of chest Gastrointestinal (Abdomen): Inspection/Auscultation: + abdomen distended (Mildly) and normal bowel sounds Percussion/Palpation: abdomen soft; abdomen nontender Musculoskeletal: Extremities: extremities normal to inspection; no cyanosis and no clubbing Skin: no rashes, warm and dry Neurologic: moves all extremities and awake; no focal motor deficits Psychiatric: A+Ox3, euthymic affect Lymphatic: no lymphedema Results & Data Results & Data ([facility]) Vital Signs (Past 12 Hours) Vital Signs Temp Pulse Pulse Pulse Pulse Resp BP 04/10/20 15:18 36.7 C 89 87 22 04/10/20 12:20 36.7 C 81 04/10/20 12:00 86 167/90 H 04/10/20 11:40 87 178/85 H 04/10/20 11:20 36.7 C 82 16 180/93 H 04/10/20 11:00 36.7 C 89 16 170/88 H 04/10/20 10:53 36.7 C 81 16 158/80 H 04/10/20 10:40 89 160/78 H 04/10/20 10:20 36.6 C 82 16 114/53 L 04/10/20 10:00 36.6 C 85 16 171/86 H 04/10/20 09:53 36.6 C 81 16 151/78 H 04/10/20 09:40 80 159/70 H 04/10/20 09:20 81 159/79 H 04/10/20 09:08 36.6 C 82 04/10/20 07:32 36.6 C 73 20 04/10/20 07:15 77 04/10/20 03:54 37.0 C 79 20 BP Pulse Ox 04/10/20 15:18 184/93 H 93 04/10/20 12:20 172/86 H 04/10/20 12:00 04/10/20 11:40 04/10/20 11:20 94 04/10/20 11:00 94 04/10/20 10:53 04/10/20 10:40 04/10/20 10:20 04/10/20 10:00 04/10/20 09:53 94 04/10/20 09:40 04/10/20 09:20 04/10/20 09:08 04/10/20 07:32 143/73 H 95 04/10/20 07:15 04/10/20 03:54 145/79 H 93 Laboratory Results 04/10/20 04/10/20 04/10/20 Range/Units 16:18 12:01 08:43 WBC (4.8-10.8) K/uL RBC (4.7-6.1) M/uL Hgb (14.0-18.0) g/dL Hct (42-52) % MCV (80-100) fL MCH (25-34) pg MCHC (32-36) g/dL RDW Std Deviation (36.4-46.3) fL RDW Coeff of Inderjit (11.5-14.5) % Plt Count (130-400) K/uL MPV (7.4-10.4) fL Immature Gran % (Auto) % Neut % (Auto) % Lymph % (Auto) % Coffee % (Auto) % Eos % (Auto) % Baso % (Auto) % Neut # (Auto) (1.4-6.5) K/uL Lymph # (Auto) (1.2-3.4) K/uL Coffee # (Auto) (0.11-0.59) K/uL Eos # (Auto) (0-0.5) K/uL Baso # (Auto) (0-0.2) K/uL Immature Gran # (Auto) (0.00-0.02) K/uL Tear Drop Cells Sodium (136-145) mmol/L Potassium (3.5-5.1) mmol/L Chloride (98-107) mmol/L Carbon Dioxide (21-32) mmol/L Anion Gap (3-11) BUN (7-18) mg/dl Creatinine (0.6-1.4) mg/dl Est Cr Clr Drug Dosing ml/min Est GFR ( Amer) Est GFR (Non-Af Amer) BUN/Creatinine Ratio (10-20) Glucose (70-99) mg/dl POC Glucose 147 H 171 H (70-99) mg/dl Calcium (8.5-10.1) mg/dl Magnesium (1.8-2.4) mg/dl Total Bilirubin (0.2-1) mg/dl AST (15-37) U/L ALT (12-78) U/L Alkaline Phosphatase (45-117) U/L Total Protein (6.4-8.2) gm/dl Albumin (3.4-5.0) gm/dl Globulin (2.5-4.0) gm/dl Albumin/Globulin Ratio (0.9-2) Vitamin B12 651 (193-986) pg/ml Folate 6.90 (>5.38) ng/ml Blood Type Antibody Screen Crossmatch 04/10/20 04/10/20 04/10/20 Range/Units 07:55 05:58 05:58 WBC 9.48 (4.8-10.8) K/uL RBC 2.64 L (4.7-6.1) M/uL Hgb 7.2 L (14.0-18.0) g/dL Hct 21.3 L (42-52) % MCV 80.7 (80-100) fL MCH 27.3 (25-34) pg MCHC 33.8 (32-36) g/dL RDW Std Deviation 46.6 H (36.4-46.3) fL RDW Coeff of Inderjit 15.6 H (11.5-14.5) % Plt Count 237 (130-400) K/uL MPV 9.5 (7.4-10.4) fL Immature Gran % (Auto) 0.2 % Neut % (Auto) 91.9 % Lymph % (Auto) 7.5 % Coffee % (Auto) 0.4 % Eos % (Auto) 0.0 % Baso % (Auto) 0.0 % Neut # (Auto) 8.71 H (1.4-6.5) K/uL Lymph # (Auto) 0.71 L (1.2-3.4) K/uL Coffee # (Auto) 0.04 L (0.11-0.59) K/uL Eos # (Auto) 0.00 (0-0.5) K/uL Baso # (Auto) 0.00 (0-0.2) K/uL Immature Gran # (Auto) 0.02 (0.00-0.02) K/uL Tear Drop Cells 1+ Sodium 137 (136-145) mmol/L Potassium 4.0 D (3.5-5.1) mmol/L Chloride 101 (98-107) mmol/L Carbon Dioxide 19 L (21-32) mmol/L Anion Gap 17.0 H (3-11) BUN 116 H (7-18) mg/dl Creatinine 13.40 H* D (0.6-1.4) mg/dl Est Cr Clr Drug Dosing 7.0 ml/min Est GFR ( Amer) 4.0 Est GFR (Non-Af Amer) 3.5 BUN/Creatinine Ratio 8.7 L (10-20) Glucose 160 H (70-99) mg/dl POC Glucose 169 H (70-99) mg/dl Calcium 5.5 L* (8.5-10.1) mg/dl Magnesium 1.9 (1.8-2.4) mg/dl Total Bilirubin 0.3 (0.2-1) mg/dl AST 18 (15-37) U/L ALT 19 (12-78) U/L Alkaline Phosphatase 305 H (45-117) U/L Total Protein 5.9 L (6.4-8.2) gm/dl Albumin 2.0 L (3.4-5.0) gm/dl Globulin 3.9 (2.5-4.0) gm/dl Albumin/Globulin Ratio 0.5 L (0.9-2) Vitamin B12 (193-986) pg/ml Folate (>5.38) ng/ml Blood Type Antibody Screen Crossmatch 04/09/20 04/09/20 04/08/20 Range/Units 21:56 20:21 22:41 WBC (4.8-10.8) K/uL RBC (4.7-6.1) M/uL Hgb (14.0-18.0) g/dL Hct (42-52) % MCV (80-100) fL MCH (25-34) pg MCHC (32-36) g/dL RDW Std Deviation (36.4-46.3) fL RDW Coeff of Inderjit (11.5-14.5) % Plt Count (130-400) K/uL MPV (7.4-10.4) fL Immature Gran % (Auto) % Neut % (Auto) % Lymph % (Auto) % Coffee % (Auto) % Eos % (Auto) % Baso % (Auto) % Neut # (Auto) (1.4-6.5) K/uL Lymph # (Auto) (1.2-3.4) K/uL Coffee # (Auto) (0.11-0.59) K/uL Eos # (Auto) (0-0.5) K/uL Baso # (Auto) (0-0.2) K/uL Immature Gran # (Auto) (0.00-0.02) K/uL Tear Drop Cells Sodium (136-145) mmol/L Potassium (3.5-5.1) mmol/L Chloride (98-107) mmol/L Carbon Dioxide (21-32) mmol/L Anion Gap (3-11) BUN (7-18) mg/dl Creatinine (0.6-1.4) mg/dl Est Cr Clr Drug Dosing ml/min Est GFR ( Amer) Est GFR (Non-Af Amer) BUN/Creatinine Ratio (10-20) Glucose (70-99) mg/dl POC Glucose 240 H 257 H (70-99) mg/dl Calcium (8.5-10.1) mg/dl Magnesium (1.8-2.4) mg/dl Total Bilirubin (0.2-1) mg/dl AST (15-37) U/L ALT (12-78) U/L Alkaline Phosphatase (45-117) U/L Total Protein (6.4-8.2) gm/dl Albumin (3.4-5.0) gm/dl Globulin (2.5-4.0) gm/dl Albumin/Globulin Ratio (0.9-2) Vitamin B12 (193-986) pg/ml Folate (>5.38) ng/ml Blood Type O Positive Antibody Screen NEGATIVE Crossmatch See Detail PG Care Time/CCT Total # of Minutes Spent Total Time Spent with Patient: Total time spent is greater than 50% in coordination of care (as documented) at patient's floor/unit and/or counseling patient: Coding Level of Care Code 66833 Subseq Hosp Care Lvl 3 Diagnoses ESRD needing dialysis N18.6; Z99.2 Anemia D64.9 Anemia type: unspecified type Pneumonia due to COVID-19 virus U07.1; J12.82 Hypoxia R09.02 Hypocalcemia E83.51 Diabetes mellitus with hyperglycemia E11.65 Ileus K56.7 Elevated troponin I level R77.8 Hypoalbuminemia E88.09 Homelessness Z59.0 Hypomagnesemia E83.42 GERD (gastroesophageal reflux disease) K21.9 DVT prophylaxis Z29.9 (1) Anemia Anemia type: unspecified type Qualified Code(s): D64.9 - Anemia, unspecified
[2020-04-10] MEDS: METOPROLOL TARTRATE 1 MG/ML VIAL IV PRN (17:25)
[2020-04-11] MEDS: METOPROLOL TARTRATE 1 MG/ML VIAL IV PRN ×3 (00:55→22:45)
[2020-04-11] MEDS: PIPERACILLIN/TAZOBACTAM 4.5 GM in DEXTROSE 5% 100 ML IV SCH ×2 (01:00→14:27)
[2020-04-11 04:27] LABS: HA1C 5.4 (<5.7)
[2020-04-11] MEDS: HEPARIN SOD 5,000 UNIT/0.5 ML VIAL SQ SCH ×3 (05:18→21:00)
[2020-04-11] MEDS: NITROGLYCERIN 2% OINTMENT 30GM TUBE EXT SCH (05:20)
[2020-04-11 06:17] LABS: Basophils # (auto) 0.01 K/uL (0-0.2); Basophils % (auto) 0.1 %; Hematocrit (blood only) 29.4 % (42-52); Immature Granulocytes # (auto) 0.05 K/uL (0.00-0.02); Immature Granulocytes % (auto) 0.4 %; Lymphocytes % (auto) 2.5 %; Mean Corpuscular Hemoglobin 28.2 pg (25-34); Mean Corpuscular Volume 83.1 fL (80-100); Mean Platelet Volume 9.1 fL (7.4-10.4); Monocytes # (auto) 0.64 K/uL (0.11-0.59); Monocytes % (auto) 5.4 %; Neutrophils # (auto) 10.84 K/uL (1.4-6.5); Neutrophils % (auto) 91.6 %; Platelet Count 219 K/uL (130-400); RDW Coefficient of Variation 15.3 % (11.5-14.5); RDW Standard Deviation 46.7 fL (36.4-46.3); Red Blood Count 3.54 M/uL (4.7-6.1); White Blood Count 11.84 K/uL (4.8-10.8)
[2020-04-11 07:11] LABS: Albumin Globulin Ratio 0.4 (0.9-2); Albumin Level 1.9 gm/dl (3.4-5.0); Bilirubin,Total 0.4 mg/dl (0.2-1); Calcium 6.2 mg/dl (8.5-10.1); Creatinine Clr Calc Pharmacy 8.9 ml/min; Est GFR (African American) 5.5; Est GFR (Non-African American) 4.7; Globulin 4.4 gm/dl (2.5-4.0); Magnesium 1.8 mg/dl (1.8-2.4); Potassium 3.7 mmol/L (3.5-5.1); Total Protein 6.3 gm/dl (6.4-8.2)
[2020-04-11] MEDS ORDERED: MAGNESIUM SULFATE / D5W 1 GM/100 ML BAG IV ONE (07:37)
[2020-04-11] MEDS ORDERED: CALCIUM GLUCONATE 10% 1,000 MG in SODIUM CHLORIDE 0.9% 50 ML IV ONE (07:45)
[2020-04-11] MEDS: INSULIN ASPART 100 UNITS/ML 3 ML PEN SC SCH ×4 (08:25→21:05)
[2020-04-11] MEDS: dexAMETHasone 6 MG in SYRINGE 0 ML IV SCH (08:31)
[2020-04-11] MEDS: NEPHROCAPS PO SCH (08:31)
[2020-04-11] MEDS: SEVELAMER HCL 800 MG TABLET PO SCH ×3 (08:32→17:14)
[2020-04-11] MEDS: allopurinoL 100 MG TAB PO SCH (08:32)
[2020-04-11] MEDS: ROSUVASTATIN CALCIUM 10 MG TAB PO SCH (08:32)
[2020-04-11] MEDS: FERROUS SULFATE 325 MG TAB PO SCH (08:33)
[2020-04-11] MEDS: PANTOprazole 40 MG TAB PO SCH (08:34)
[2020-04-11] MEDS: ONDANSETRON INJ 2 MG/ML 2 ML VIAL IV PRN (09:20)
[2020-04-11] MEDS: IRON SUCROSE 200 MG in 0.9 % SODIUM CHLORIDE 100 ML IV SCH (09:20)
[2020-04-11] MEDS: AZITHROMYCIN 250 MG in DEXTROSE 5% 250 ML IV SCH (09:20)
[2020-04-11] MEDS: CALCITRIOL 0.25 MCG CAPSULE PO SCH (09:37)
[2020-04-11] MEDS: amLODIPine BESYLATE 5 MG TAB PO SCH ×2 (10:05→23:05)
--- NOTE | 2020-04-11 10:09 | Nephrology Progress Note ---
Date of Service April 11, 2020 Assessment & Plan (1) ESRD needing dialysis: 64 y o m with history of baseline advanced CKD, admitted with COVID-19 pneumonia, generalized volume overload, LINDSEY, anemia and multiple critical electrolyte abnormality. With underlying baseline advanced CKD, anemia, hypocalcemia and electrolyte abnormality, all points towards end-stage renal disease instead of LINDSEY. Advanced CKD, end-stage renal disease most likely secondary to diabetic and hypertensive nephropathy, which progressively worsened rather rapidly as patient has been off of any medical care or medication for last more than a year. Started on hemodialysis on 04/09/2020 via temporary dialysis catheter considering COVID-19 pneumonia. --continue dialysis, 4 hours today via temporary dialysis catheter at this time. Consulted Dr. Mayo, plan for TDC on Thursday04/13/20, keep NPO post midnight T hursday. Eventually will need to evaluate for AV fistula. Requested social service to start preparation for outpatient dialysis placement at [facility], but initially he will need to go to Isolation clinic at [place]. -- Epogen 23366 units given on 04/10/20, on Venofer 200 mg IV for total 5 doses, s/p 3 PRBC --start Calcitriol, on Renvela 1 tab with each meal as phosphate binder --dose medications for GFR less than 10, left arm nephrology precaution for future AV fistula Will follow (2) Acidosis: (3) Hypocalcemia: (4) Fluid overload: (5) Pneumonia due to COVID-19 virus: (6) Proteinuria: Admission and Anticipated Discharge Date Admission Date: April 09, 2020 Subjective Librado was seen and examined in his room this morning. He continues to feel tired and shortness of breath with activity but much better compared to prior to admission. Appetite still low but started to improve. Urine output has been low. Has been tolerating dialysis. Currently getting 2nd dialysis treatment for 3 hours. Hemoglobin remain low despite receiving 1 unit of blood transfusion yesterday. Review of Systems Review of Systems: All systems reviewed & are unremarkable except as noted in Subjective Physical Exam Constitutional: WD/WN, vitals as above + ill appearing; no acute distress Respiratory: normal respiratory effort, lungs clear to auscultation Cardiovascular: Rate/Rhythm: regular rate and regular rhythm Heart Sounds: normal S1 and normal S2 Extremities: + edema Skin: no rashes, warm and dry Neurologic: moves all extremities and awake; no focal motor deficits and not confused Psychiatric: A+Ox3, euthymic affect Results & Data ([facility]) Vital Signs (Past 12 Hours) Vital Signs Temp Pulse Pulse Resp BP BP Pulse Ox 04/11/20 07:26 36.7 C 73 22 152/83 H 93 04/11/20 05:27 64 137/78 04/11/20 05:19 77 162/84 H 04/11/20 03:16 72 153/80 H 93 04/11/20 03:01 36.8 C 78 24 163/71 H 93 04/11/20 01:10 70 146/76 H 04/11/20 01:05 69 139/78 04/11/20 01:00 69 144/87 H 04/11/20 00:55 81 156/79 H 04/11/20 00:54 81 156/79 H 04/10/20 23:42 36.7 C 80 24 152/77 H 93 04/10/20 23:11 82 PG Care Time/CCT Total # of Minutes Spent Total Time Spent with Patient: Total time spent is greater than 50% in coordination of care (as documented) at patient's floor/unit and/or counseling patient: Coding Level of Care Code 62451 Subseq Hosp Care Lvl 3 Diagnoses ESRD needing dialysis N18.6; Z99.2 Acidosis E87.2 Hypocalcemia E83.51 Fluid overload E87.70 Hypervolemia type: unspecified Pneumonia due to COVID-19 virus U07.1; J12.82 Proteinuria R80.9 (1) Fluid overload Hypervolemia type: unspecified Qualified Code(s): E87.70 - Fluid overload, unspecified
--- NOTE | 2020-04-11 10:46 | Hospitalist Progress Note ---
Date of Service April 11, 2020 Assessment & Plan (1) ESRD needing dialysis: Presented with a creatinine of 16, BUN 125 With a history of CKD stage IV-V in the past and no ongoing medical care for the last year due to having no insurance Had temporary dialysis catheter placed on 04/09 by studio sales associate Has received hemodialysis on 04/09, and 04/10 and will again today on 04/11 Electrolytes are improving, remains hypertensive and volume overloaded with hypoxia and pulmonary edema. Presented with metabolic acidosis, hypocalcemia, and severe anemia as below. All now improving Appreciate nephrology consultation Plan for hemodialysis again today and then will start 3 times a week- has outpatient referrals to set up outpatient hemodialysis -Plan for PermCath placement on Thursday with vascular surgery-make n.p.o. after midnight night Follow renal panel in the morning along with CBC Continue sevelamer, started Nephrocaps, receiving IV iron and Epogen -Started calcitriol today -Renally dose medications (2) Pneumonia due to COVID-19 virus: Pneumonia due to COVID-19 virus with hypoxia-initially required BiPAP and is now weaned down to 3 L nasal cannula after volume removal with IV Lasix as well as hemodialysis and starting dexamethasone Continue dexamethasone 6 mg IV every morning x10-day course Continue Duonebs every 4 hours while awake and every 2 hours when necessary. Procalcitonin was elevated at 1.1 so may be secondary bacterial involvement Continue azithromycin 250 mg IV daily x5-day course Continue Zosyn x7-day course Follow chest x-ray to resolution (3) Vertigo: With intermittent vertigo causing nausea and vomiting which comes on with changes in position. He reports this is a chronic issue May be worsened by volume overload currently -Give IV Benadryl as needed for nausea and vertigo Would avoid benzodiazepines given severe renal failure Antiemetics with Zofran as needed -We will discontinue Nitropaste in case this is contributing (4) Hypoxia: See above, secondary to volume overload from renal failure as well as Covid-19 pneumonia Improving (5) Nausea & vomiting: As above, likely secondary to BPPV as well as uremia and Covid-19 Ondansetron, Benadryl as needed Continue on clear liquids diet for today (6) Anemia: Hemoglobin remained at 7.2 despite 1 unit PRBCs on 04/09, but is now up to 10 after 2 more units of PRBCs on 04/10 No gross bleeding from anywhere. Most likely secondary to anemia of chronic kidney disease Transferrin saturation 20% B12 is normal, folate low normal at 6 Nephrology ordered 5 doses of IV Venofer Continue p.o. ferrous sulfate Hemoccult stool pending Started Nephrocaps with folate Follow CBC in the morning (7) Hypocalcemia: Calcium level severely low here but improved today and corrected calcium for hypoalbuminemia is up to 8.0 This is secondary to severe renal failure Giving calcium gluconate 1 g IV today Follow calcium and albumin levels in the morning (8) Diabetes mellitus with hyperglycemia: Hold glimepiride from home Blood sugars are better controlled today but still with some hyperglycemia Continue Accu-Cheks before meals and at bedtime with NovoLog coverage per scale- we will lower goal range again today and tighten down correction factor as well as carb ratio today Hemoglobin A1c 5.4% but is likely inaccurate in the setting of severe anemia and renal failure (9) Ileus: With mild abdominal distention here and nausea/vomiting Abdominal distention is now improved, moving his bowels Likely secondary to uremia Antiemetics as needed for nausea Continue clear liquids only (10) Elevated troponin I level: Troponin mildly elevated at 0.06/0.112 Repeat is minimally elevated over initial He has no chest pain, ECG was without ischemic changes Most likely myocardial demand ischemia in the setting of renal failure and Covid-19 with profound hypoxia Cannot get echo and less urgent as he is a Covid patient and I do not feel this is urgent (11) Hypoalbuminemia: Albumin is 2.0 Secondary to acute illness and poor nutrition He was given IV albumin initially upon admission (12) Homelessness: He mostly lives out of his truck but does sleep at his sister's house although he reports his sister officially evicted him today while he was in the hospital Case management is involved (13) Hypomagnesemia: Replaced Resolved (14) GERD (gastroesophageal reflux disease): No acute issues Continue home Protonix (15) Hypertension: Blood pressures remain quite elevated secondary to renal failure Continue amlodipine, IV hydralazine as needed Discontinue Nitropaste as may be causing dizziness (16) Elevated alkaline phosphatase level: Alkaline phosphatase is elevated at 278 but is down from 400 previously This is likely secondary to renal osteodystrophy Starting calcitriol, phosphate binders Follow LFTs (17) DVT prophylaxis: Heparin SQ Disposition-continued stay on PCU Admission and Anticipated Discharge Date Admission Date: April 09, 2020 Subjective Patient denies shortness of breath. He continues to have some nausea with vomiting and vertigo-like symptoms with the room spinning especially with changes in position. He did report a history of vertigo in the past as well. He denies any abdominal pain and feels his abdominal distention is improving. He had a large bowel movement this morning. Denies chest pain He was awaiting getting hemodialysis today when I saw him. I discussed his care with nephrology Telemetry with normal sinus rhythm with rates in the 70s Review of Systems Review of Systems: All systems reviewed & are unremarkable except as noted in HPI & below Physical Exam Constitutional: WD/WN, vitals as above + ill appearing; no acute distress Eyes: + anicteric sclerae Neck: trachea midline, no thyromegaly Respiratory: normal respiratory effort Auscultation: + crackles (At the bases) and + rhonchi; no wheezes Cardiovascular: Rate/Rhythm: regular rate and regular rhythm Heart Sounds: no murmur Extremities: + edema (1+ pitting edema of the legs bilaterally) and + vascular access device (Right IJ catheter without surrounding erythema) Chest (Breasts): Chest: normal inspection of chest Gastrointestinal (Abdomen): Inspection/Auscultation: + abdomen distended (Mildly but improved from yesterday) and normal bowel sounds Percussion/Palpation: abdomen soft; abdomen nontender Musculoskeletal: Extremities: extremities normal to inspection; no cyanosis and no clubbing Skin: no rashes, warm and dry Neurologic: CN's II-XI intact bilaterally, moves all extremities and awake; no focal motor deficits and not confused Cranial Nerves: no nystagmus Psychiatric: A+Ox3, euthymic affect Lymphatic: no lymphedema Results & Data Results & Data ([facility]) Vital Signs (Past 12 Hours) Vital Signs Temp Pulse Pulse Resp BP BP Pulse Ox 04/11/20 07:26 36.7 C 73 22 152/83 H 93 04/11/20 05:27 64 137/78 04/11/20 05:19 77 162/84 H 04/11/20 03:16 72 153/80 H 93 04/11/20 03:01 36.8 C 78 24 163/71 H 93 04/11/20 01:10 70 146/76 H 04/11/20 01:05 69 139/78 04/11/20 01:00 69 144/87 H 04/11/20 00:55 81 156/79 H 04/11/20 00:54 81 156/79 H 04/10/20 23:42 36.7 C 80 24 152/77 H 93 04/10/20 23:11 82 Laboratory Results 04/11/20 04/11/20 04/11/20 Range/Units 20:39 16:24 11:29 WBC (4.8-10.8) K/uL RBC (4.7-6.1) M/uL Hgb (14.0-18.0) g/dL Hct (42-52) % MCV (80-100) fL MCH (25-34) pg MCHC (32-36) g/dL RDW Std Deviation (36.4-46.3) fL RDW Coeff of Inderjit (11.5-14.5) % Plt Count (130-400) K/uL MPV (7.4-10.4) fL Immature Gran % (Auto) % Neut % (Auto) % Lymph % (Auto) % Swain % (Auto) % Eos % (Auto) % Baso % (Auto) % Neut # (Auto) (1.4-6.5) K/uL Lymph # (Auto) (1.2-3.4) K/uL Swain # (Auto) (0.11-0.59) K/uL Eos # (Auto) (0-0.5) K/uL Baso # (Auto) (0-0.2) K/uL Immature Gran # (Auto) (0.00-0.02) K/uL Sodium (136-145) mmol/L Potassium (3.5-5.1) mmol/L Chloride (98-107) mmol/L Carbon Dioxide (21-32) mmol/L Anion Gap (3-11) BUN (7-18) mg/dl Creatinine (0.6-1.4) mg/dl Est Cr Clr Drug Dosing ml/min Est GFR ( Amer) Est GFR (Non-Af Amer) BUN/Creatinine Ratio (10-20) Glucose (70-99) mg/dl POC Glucose 180 H 199 H 166 H (70-99) mg/dl Estimated Ave Glu mmol/L (calc) Estimated Ave Glu mg/dL (calc) Hemoglobin A1c (<5.7) Calcium (8.5-10.1) mg/dl Magnesium (1.8-2.4) mg/dl Total Bilirubin (0.2-1) mg/dl AST (15-37) U/L ALT (12-78) U/L Alkaline Phosphatase (45-117) U/L Total Protein (6.4-8.2) gm/dl Albumin (3.4-5.0) gm/dl Globulin (2.5-4.0) gm/dl Albumin/Globulin Ratio (0.9-2) 04/11/20 04/11/20 04/11/20 Range/Units 07:29 06:00 06:00 WBC 11.84 H (4.8-10.8) K/uL RBC 3.54 L (4.7-6.1) M/uL Hgb 10.0 L (14.0-18.0) g/dL Hct 29.4 L (42-52) % MCV 83.1 (80-100) fL MCH 28.2 (25-34) pg MCHC 34.0 (32-36) g/dL RDW Std Deviation 46.7 H (36.4-46.3) fL RDW Coeff of Inderjit 15.3 H (11.5-14.5) % Plt Count 219 (130-400) K/uL MPV 9.1 (7.4-10.4) fL Immature Gran % (Auto) 0.4 % Neut % (Auto) 91.6 % Lymph % (Auto) 2.5 % Swain % (Auto) 5.4 % Eos % (Auto) 0.0 % Baso % (Auto) 0.1 % Neut # (Auto) 10.84 H (1.4-6.5) K/uL Lymph # (Auto) 0.30 L (1.2-3.4) K/uL Swain # (Auto) 0.64 H (0.11-0.59) K/uL Eos # (Auto) 0.00 (0-0.5) K/uL Baso # (Auto) 0.01 (0-0.2) K/uL Immature Gran # (Auto) 0.05 H (0.00-0.02) K/uL Sodium 137 (136-145) mmol/L Potassium 3.7 (3.5-5.1) mmol/L Chloride 99 (98-107) mmol/L Carbon Dioxide 22 (21-32) mmol/L Anion Gap 16.0 H (3-11) BUN 84 H (7-18) mg/dl Creatinine 10.40 H* D (0.6-1.4) mg/dl Est Cr Clr Drug Dosing 8.9 ml/min Est GFR ( Amer) 5.5 Est GFR (Non-Af Amer) 4.7 BUN/Creatinine Ratio 8.0 L (10-20) Glucose 135 H (70-99) mg/dl POC Glucose 125 H (70-99) mg/dl Estimated Ave Glu mmol/L (calc) Estimated Ave Glu mg/dL (calc) Hemoglobin A1c (<5.7) Calcium 6.2 L (8.5-10.1) mg/dl Magnesium 1.8 (1.8-2.4) mg/dl Total Bilirubin 0.4 (0.2-1) mg/dl AST 26 (15-37) U/L ALT 20 (12-78) U/L Alkaline Phosphatase 278 H (45-117) U/L Total Protein 6.3 L (6.4-8.2) gm/dl Albumin 1.9 L (3.4-5.0) gm/dl Globulin 4.4 H (2.5-4.0) gm/dl Albumin/Globulin Ratio 0.4 L (0.9-2) 04/09/20 Range/Units 06:09 WBC (4.8-10.8) K/uL RBC (4.7-6.1) M/uL Hgb (14.0-18.0) g/dL Hct (42-52) % MCV (80-100) fL MCH (25-34) pg MCHC (32-36) g/dL RDW Std Deviation (36.4-46.3) fL RDW Coeff of Inderjit (11.5-14.5) % Plt Count (130-400) K/uL MPV (7.4-10.4) fL Immature Gran % (Auto) % Neut % (Auto) % Lymph % (Auto) % Swain % (Auto) % Eos % (Auto) % Baso % (Auto) % Neut # (Auto) (1.4-6.5) K/uL Lymph # (Auto) (1.2-3.4) K/uL Swain # (Auto) (0.11-0.59) K/uL Eos # (Auto) (0-0.5) K/uL Baso # (Auto) (0-0.2) K/uL Immature Gran # (Auto) (0.00-0.02) K/uL Sodium (136-145) mmol/L Potassium (3.5-5.1) mmol/L Chloride (98-107) mmol/L Carbon Dioxide (21-32) mmol/L Anion Gap (3-11) BUN (7-18) mg/dl Creatinine (0.6-1.4) mg/dl Est Cr Clr Drug Dosing ml/min Est GFR ( Amer) Est GFR (Non-Af Amer) BUN/Creatinine Ratio (10-20) Glucose (70-99) mg/dl POC Glucose (70-99) mg/dl Estimated Ave Glu mmol/L 6.0 (calc) Estimated Ave Glu mg/dL 108 (calc) Hemoglobin A1c 5.4 (<5.7) Calcium (8.5-10.1) mg/dl Magnesium (1.8-2.4) mg/dl Total Bilirubin (0.2-1) mg/dl AST (15-37) U/L ALT (12-78) U/L Alkaline Phosphatase (45-117) U/L Total Protein (6.4-8.2) gm/dl Albumin (3.4-5.0) gm/dl Globulin (2.5-4.0) gm/dl Albumin/Globulin Ratio (0.9-2) PG Care Time/CCT Total # of Minutes Spent Total Time Spent with Patient: Total time spent is greater than 50% in coordination of care (as documented) at patient's floor/unit and/or counseling patient: Coding Level of Care Code 92044 Subseq Hosp Care Lvl 3 Diagnoses ESRD needing dialysis N18.6; Z99.2 Pneumonia due to COVID-19 virus U07.1; J12.82 Vertigo R42 Hypoxia R09.02 Nausea & vomiting R11.2 Anemia D64.9 Anemia type: unspecified type Hypocalcemia E83.51 Diabetes mellitus with hyperglycemia E11.65 Ileus K56.7 Elevated troponin I level R77.8 Hypoalbuminemia E88.09 Homelessness Z59.0 Hypomagnesemia E83.42 GERD (gastroesophageal reflux disease) K21.9 Hypertension I10 Elevated alkaline phosphatase level R74.8 DVT prophylaxis Z29.9 (1) Anemia Anemia type: unspecified type Qualified Code(s): D64.9 - Anemia, unspecified
[2020-04-11] MEDS: diphenhydrAMINE 50 MG/ML VIAL IV PRN (11:16)
--- NOTE | 2020-04-11 11:59 | Communication Note ---
Date of Service: April 11, 2020 Will plan on permcath insertion in am on Thursday.
[2020-04-12] MEDS: PIPERACILLIN/TAZOBACTAM 4.5 GM in DEXTROSE 5% 100 ML IV SCH ×2 (01:20→14:04)
[2020-04-12] MEDS: HEPARIN SOD 5,000 UNIT/0.5 ML VIAL SQ SCH ×3 (05:56→20:23)
[2020-04-12 06:29] LABS: Basophils # (auto) 0.01 K/uL (0-0.2); Basophils % (auto) 0.1 %; Hematocrit (blood only) 30.6 % (42-52); Hemoglobin 10.3 g/dL (14.0-18.0); Immature Granulocytes % (auto) 0.9 %; Lymphocytes % (auto) 5.6 %; Mean Corpuscular Hemoglobin 28.3 pg (25-34); Mean Corpuscular Hgb Conc 33.7 g/dL (32-36); Mean Corpuscular Volume 84.1 fL (80-100); Mean Platelet Volume 9.9 fL (7.4-10.4); Monocytes # (auto) 0.64 K/uL (0.11-0.59); Neutrophils # (auto) 9.32 K/uL (1.4-6.5); Neutrophils % (auto) 87.4 %; Platelet Count 219 K/uL (130-400); RDW Coefficient of Variation 15.2 % (11.5-14.5); Red Blood Count 3.64 M/uL (4.7-6.1); White Blood Count 10.67 K/uL (4.8-10.8)
[2020-04-12 07:36] LABS: Albumin Globulin Ratio 0.5 (0.9-2); BUN Creatinine Ratio 6.4 (10-20); Bilirubin,Total 0.5 mg/dl (0.2-1); Creatinine Clr Calc Pharmacy 13.8 ml/min; Est GFR (African American) 9.4; Est GFR (Non-African American) 8.1; Globulin 4.2 gm/dl (2.5-4.0); Magnesium 2.1 mg/dl (1.8-2.4); Potassium 3.6 mmol/L (3.5-5.1); Total Protein 6.2 gm/dl (6.4-8.2)
[2020-04-12] MEDS: INSULIN ASPART 100 UNITS/ML 3 ML PEN SC SCH ×4 (09:03→21:24)
[2020-04-12] MEDS: CALCITRIOL 0.25 MCG CAPSULE PO SCH (09:05)
[2020-04-12] MEDS: ROSUVASTATIN CALCIUM 10 MG TAB PO SCH (09:05)
[2020-04-12] MEDS: FERROUS SULFATE 325 MG TAB PO SCH (09:06)
[2020-04-12] MEDS: allopurinoL 100 MG TAB PO SCH (09:06)
[2020-04-12] MEDS: NEPHROCAPS PO SCH (09:07)
[2020-04-12] MEDS: SEVELAMER HCL 800 MG TABLET PO SCH ×3 (09:07→17:47)
[2020-04-12] MEDS: amLODIPine BESYLATE 5 MG TAB PO SCH (09:07)
[2020-04-12] MEDS: dexAMETHasone 6 MG in SYRINGE 0 ML IV SCH (09:08)
[2020-04-12] MEDS: AZITHROMYCIN 250 MG in DEXTROSE 5% 250 ML IV SCH (09:11)
--- NOTE | 2020-04-12 10:30 | Nephrology Progress Note ---
Date of Service April 12, 2020 Assessment & Plan (1) ESRD needing dialysis: 64 y o m with history of baseline advanced CKD, admitted with COVID-19 pneumonia, generalized volume overload, LINDSEY, anemia and multiple critical electrolyte abnormality. With underlying baseline advanced CKD, anemia, hypocalcemia and electrolyte abnormality, all points towards end-stage renal disease instead of LINDSEY. Advanced CKD, end-stage renal disease most likely secondary to diabetic and hypertensive nephropathy, which progressively worsened rather rapidly as patient has been off of any medical care or medication for last more than a year. Started on hemodialysis on 04/09/2020 via temporary dialysis catheter considering COVID-19 pneumonia. --plan for tunneled dialysis catheter today tomorrow and removal of IgE temporary catheter. Dialysis tomorrow after tunneled dialysis catheter placement and then continue on intermittent dialysis -- Epogen [id number] units given on 04/10/20, on Venofer 200 mg IV for total 5 doses, s/p 3 PRBC --continue Calcitriol, on Renvela 1 tab with each meal as phosphate binder --dose medications for GFR less than 10, left arm nephrology precaution for future AV fistula Will follow (2) Acidosis: (3) Hypocalcemia: (4) Fluid overload: (5) Pneumonia due to COVID-19 virus: (6) Proteinuria: Admission and Anticipated Discharge Date Admission Date: April 09, 2020 Guilherme Pavon was seen and examined in his room this morning. He he is feeling better, denies any significant shortness of breath or chest pain. Appetite has been improving Urine output has been low. Has been tolerating dialysis. Hemoglobin improved. Had 4 hours dialysis treatment, tolerated well. Blood pressure remained elevated. Review of Systems Review of Systems: All systems reviewed & are unremarkable except as noted in Subjective Physical Exam Constitutional: WD/WN, vitals as above + ill appearing; no acute distress Respiratory: normal respiratory effort, lungs clear to auscultation + cough Auscultation: + crackles and + rales Cardiovascular: Rate/Rhythm: regular rate and regular rhythm Heart Sounds: normal S1 and normal S2 Extremities: + edema Skin: no rashes, warm and dry Neurologic: moves all extremities and awake; no focal motor deficits and not confused Psychiatric: A+Ox3, euthymic affect Results & Data ([facility]) Vital Signs (Past 12 Hours) Vital Signs Temp Pulse Pulse Resp BP BP Pulse Ox 04/12/20 09:57 86 04/12/20 06:50 36.8 C 82 23 178/85 H 92 04/12/20 04:18 78 159/81 H 04/12/20 03:23 37.2 C 81 23 167/85 H 94 04/12/20 03:00 75 158/87 H 04/12/20 01:20 78 160/85 H 04/12/20 00:40 80 04/11/20 23:43 36.6 C 77 19 181/92 H 96 04/11/20 22:55 36.5 C 62 24 172/83 H 96 04/11/20 22:50 64 170/94 H 04/11/20 22:45 78 185/94 H PG Care Time/CCT Total # of Minutes Spent Total Time Spent with Patient: Total time spent is greater than 50% in coordination of care (as documented) at patient's floor/unit and/or counseling patient: Coding Level of Care Code 99620 Subseq Hosp Care Lvl 3 Diagnoses ESRD needing dialysis N18.6; Z99.2 Acidosis E87.2 Hypocalcemia E83.51 Fluid overload E87.70 Hypervolemia type: unspecified Pneumonia due to COVID-19 virus U07.1; J12.82 Proteinuria R80.9 (1) Fluid overload Hypervolemia type: unspecified Qualified Code(s): E87.70 - Fluid overload, unspecified
[2020-04-12] MEDS: PANTOprazole 40 MG TAB PO SCH (11:33)
[2020-04-12] MEDS: IRON SUCROSE 200 MG in 0.9 % SODIUM CHLORIDE 100 ML IV SCH (11:33)
[2020-04-12] MEDS ORDERED: amLODIPine BESYLATE 5 MG TAB PO ONE (19:33)
--- NOTE | 2020-04-12 19:34 | Hospitalist Progress Note ---
Date of Service April 12, 2020 Assessment & Plan (1) ESRD needing dialysis: Presented with a creatinine of 16, BUN 125 With a history of CKD stage IV-V in the past and no ongoing medical care for the last year due to having no insurance Had temporary dialysis catheter placed on 04/09 by birthing nurse Has received hemodialysis on 04/09, and 04/10 and on 04/11-tolerated well except was having some nausea and vomiting Electrolytes are all much improved, remains hypertensive and volume overloaded w ith hypoxia and pulmonary edema but is also improving. Presented with metabolic acidosis, hypocalcemia, and severe anemia as below. All now improving Appreciate nephrology consultation Plan for hemodialysis tomorrow after PermCath placement and then to continue 3 times a week- has outpatient referrals to set up outpatient hemodialysis -Plan for PermCath placement tomorrow with vascular surgery-make n.p.o. after midnight night Follow renal panel in the morning along with CBC Continue sevelamer, started Nephrocaps, receiving IV iron and Epogen -Started calcitriol -Renally dose medications for GFR less than 10 (2) Pneumonia due to COVID-19 virus: Pneumonia due to COVID-19 virus with hypoxia-initially required BiPAP and is now weaned down to 2 L nasal cannula after volume removal with IV Lasix as well as hemodialysis and starting dexamethasone Continue dexamethasone 6 mg IV every morning x10-day course-last dose will be 04/17/2020 Continue Duonebs every 4 hours while awake and every 2 hours when necessary. Procalcitonin was elevated at 1.1 so may be secondary bacterial involvement Continue azithromycin 250 mg IV daily x5-day course-last dose will be 04/13 Continue Zosyn x7-day course-last dose will be 04/15 Follow chest x-ray to resolution as an outpatient (3) Vertigo: With intermittent vertigo causing nausea and vomiting which comes on with changes in position. He reports this is a chronic issue May be worsened by volume overload Now much improved, received 1 dose of IV Benadryl and stopped Nitropaste -Continue IV Benadryl as needed for nausea and vertigo Would avoid benzodiazepines given severe renal failure Antiemetics with Zofran as needed (4) Hypoxia: With acute respiratory failure with hypoxia See above, secondary to volume overload from renal failure as well as Covid-19 pneumonia Improving (5) Nausea & vomiting: As above, likely secondary to BPPV as well as uremia and Covid-19 Now much improved Ondansetron, Benadryl as needed Okay to advance back to regular diet (6) Anemia: Hemoglobin remained at 7.2 despite 1 unit PRBCs on 04/09, but is now up to 10 and stable after 2 more units of PRBCs on 04/10 No gross bleeding from anywhere. Most likely secondary to anemia of chronic kidney disease Transferrin saturation 20% B12 is normal, folate low normal at 6 Nephrology ordered 5 doses of IV Venofer Continue p.o. ferrous sulfate Hemoccult stool pending Started Nephrocaps with folate Follow CBC in the morning (7) Hypocalcemia: Calcium level severely low at 5.5 on admission here but now normal after several days of correction with IV calcium gluconate-corrected calcium for hypoalbuminemia today is up to 8.6 which is normal This is secondary to severe renal failure Follow calcium and albumin levels in the morning (8) Diabetes mellitus with hyperglycemia: Hold glimepiride from home Blood sugars were better controlled but now worsening hyperglycemia now that he is eating more and on dexamethasone Continue Accu-Cheks before meals and at bedtime with NovoLog coverage per scale -Add Lantus 5 units nightly Hemoglobin A1c 5.4% but is likely inaccurate in the setting of severe anemia and renal failure (9) Ileus: With mild abdominal distention here and nausea/vomiting which is now resolved Abdominal distention is now improved, moving his bowels Likely secondary to uremia Antiemetics as needed for nausea Advance diet to regular (10) Elevated troponin I level: Troponin mildly elevated at 0.06/0.112 Repeat is minimally elevated over initial He has no chest pain, ECG was without ischemic changes Most likely myocardial demand ischemia in the setting of renal failure and Covid-19 with profound hypoxia Cannot get echo and less urgent as he is a Covid patient and I do not feel this is urgent (11) Hypoalbuminemia: Albumin is stable at 2.0 Secondary to acute illness and poor nutrition He was given IV albumin initially upon admission (12) Homelessness: He mostly lives out of his truck but does sleep at his sister's house although he reports his sister officially evicted him today while he was in the hospital Case management is involved (13) Hypomagnesemia: Replaced Resolved (14) GERD (gastroesophageal reflux disease): No acute issues Continue home Protonix (15) Hypertension: Blood pressures remain quite elevated secondary to renal failure Continue amlodipine, IV hydralazine as needed Discontinued Nitropaste as may have been contributing to dizziness Will increase amlodipine to 10 mg (16) Elevated alkaline phosphatase level: Alkaline phosphatase is elevated at 245 but is down from 400 previously This is likely secondary to renal osteodystrophy, plus may have some fatty liver Started calcitriol, phosphate binders Follow LFTs (17) DVT prophylaxis: Heparin SQ Disposition-continued stay on PCU, slowly improving, expect discharge possibly to rehab after the weekend Admission and Anticipated Discharge Date Admission Date: April 09, 2020 Subjective Patient feeling much better today. He is out of bed to chair. He only had one short episode of dizziness today but reports the nausea and vomiting is much improved. He is ready to advance his diet. He is weaned down to 2 L nasal cannula and has a pulse ox of 97% when I saw him. He denies any shortness of breath and his cough is improved. He denies chest pain. He moved his bowels again today. He denies abdominal pain. Telemetry with normal sinus rhythm with rates in the 70s to 80s. Review of Systems Review of Systems: All systems reviewed & are unremarkable except as noted in HPI & below Physical Exam Constitutional: WD/WN, vitals as above + obese; no acute distress Eyes: + anicteric sclerae ENMT: Ears: no hearing impairment Nose: no external nose abnormality Neck: trachea midline, no thyromegaly Respiratory: normal respiratory effort Auscultation: + crackles (Mild at the bases, improved); no rhonchi and no wheezes Cardiovascular: Rate/Rhythm: regular rate and regular rhythm Heart Sounds: no murmur Extremities: + edema (1+ pitting edema of the legs bilaterally) and + vascular access device (Right IJ catheter without surrounding erythema) Chest (Breasts): Chest: normal inspection of chest Gastrointestinal (Abdomen): Inspection/Auscultation: + abdomen distended (Mildly but improved from yesterday) and normal bowel sounds Percussion/Palpation: abdomen soft; abdomen nontender Musculoskeletal: Extremities: extremities normal to inspection; no cyanosis and no clubbing Skin: no rashes, warm and dry Neurologic: moves all extremities and awake; no focal motor deficits and not confused Cranial Nerves: no nystagmus Psychiatric: A+Ox3, euthymic affect Genitourinary: [place] catheter in place draining clear yellow urine Results & Data Results & Data ([facility]) Vital Signs (Past 12 Hours) Vital Signs Temp Pulse Pulse Resp BP Pulse Ox Pulse Ox 04/12/20 15:32 36.9 C 85 20 172/90 H 95 04/12/20 12:08 96 04/12/20 11:31 36.9 C 79 20 153/86 H 95 04/12/20 09:57 86 Pulse Ox Pulse Ox 04/12/20 15:32 04/12/20 12:08 94 90 04/12/20 11:31 04/12/20 09:57 Laboratory Results 04/12/20 04/12/20 04/12/20 Range/Units 16:49 11:54 07:39 WBC (4.8-10.8) K/uL RBC (4.7-6.1) M/uL Hgb (14.0-18.0) g/dL Hct (42-52) % MCV (80-100) fL MCH (25-34) pg MCHC (32-36) g/dL RDW Std Deviation (36.4-46.3) fL RDW Coeff of Inderjit (11.5-14.5) % Plt Count (130-400) K/uL MPV (7.4-10.4) fL Immature Gran % (Auto) % Neut % (Auto) % Lymph % (Auto) % Greer % (Auto) % Eos % (Auto) % Baso % (Auto) % Neut # (Auto) (1.4-6.5) K/uL Lymph # (Auto) (1.2-3.4) K/uL Greer # (Auto) (0.11-0.59) K/uL Eos # (Auto) (0-0.5) K/uL Baso # (Auto) (0-0.2) K/uL Immature Gran # (Auto) (0.00-0.02) K/uL Sodium (136-145) mmol/L Potassium (3.5-5.1) mmol/L Chloride (98-107) mmol/L Carbon Dioxide (21-32) mmol/L Anion Gap (3-11) BUN (7-18) mg/dl Creatinine (0.6-1.4) mg/dl Est Cr Clr Drug Dosing ml/min Est GFR ( Amer) Est GFR (Non-Af Amer) BUN/Creatinine Ratio (10-20) Glucose (70-99) mg/dl POC Glucose 215 H 176 H 132 H (70-99) mg/dl Calcium (8.5-10.1) mg/dl Magnesium (1.8-2.4) mg/dl Total Bilirubin (0.2-1) mg/dl AST (15-37) U/L ALT (12-78) U/L Alkaline Phosphatase (45-117) U/L Total Protein (6.4-8.2) gm/dl Albumin (3.4-5.0) gm/dl Globulin (2.5-4.0) gm/dl Albumin/Globulin Ratio (0.9-2) 04/12/20 04/12/20 04/11/20 Range/Units 06:04 06:04 20:39 WBC 10.67 (4.8-10.8) K/uL RBC 3.64 L (4.7-6.1) M/uL Hgb 10.3 L (14.0-18.0) g/dL Hct 30.6 L (42-52) % MCV 84.1 (80-100) fL MCH 28.3 (25-34) pg MCHC 33.7 (32-36) g/dL RDW Std Deviation 47.0 H (36.4-46.3) fL RDW Coeff of Inderjit 15.2 H (11.5-14.5) % Plt Count 219 (130-400) K/uL MPV 9.9 (7.4-10.4) fL Immature Gran % (Auto) 0.9 % Neut % (Auto) 87.4 % Lymph % (Auto) 5.6 % Greer % (Auto) 6.0 % Eos % (Auto) 0.0 % Baso % (Auto) 0.1 % Neut # (Auto) 9.32 H (1.4-6.5) K/uL Lymph # (Auto) 0.60 L (1.2-3.4) K/uL Greer # (Auto) 0.64 H (0.11-0.59) K/uL Eos # (Auto) 0.00 (0-0.5) K/uL Baso # (Auto) 0.01 (0-0.2) K/uL Immature Gran # (Auto) 0.10 H (0.00-0.02) K/uL Sodium 137 (136-145) mmol/L Potassium 3.6 (3.5-5.1) mmol/L Chloride 99 (98-107) mmol/L Carbon Dioxide 27 (21-32) mmol/L Anion Gap 11.0 (3-11) BUN 43 H (7-18) mg/dl Creatinine 6.69 H* D (0.6-1.4) mg/dl Est Cr Clr Drug Dosing 13.8 ml/min Est GFR ( Amer) 9.4 Est GFR (Non-Af Amer) 8.1 BUN/Creatinine Ratio 6.4 L (10-20) Glucose 117 H (70-99) mg/dl POC Glucose 180 H (70-99) mg/dl Calcium 7.0 L (8.5-10.1) mg/dl Magnesium 2.1 (1.8-2.4) mg/dl Total Bilirubin 0.5 (0.2-1) mg/dl AST 27 (15-37) U/L ALT 22 (12-78) U/L Alkaline Phosphatase 245 H (45-117) U/L Total Protein 6.2 L (6.4-8.2) gm/dl Albumin 2.0 L (3.4-5.0) gm/dl Globulin 4.2 H (2.5-4.0) gm/dl Albumin/Globulin Ratio 0.5 L (0.9-2) PG Care Time/CCT Total # of Minutes Spent Total Time Spent with Patient: Total time spent is greater than 50% in coordination of care (as documented) at patient's floor/unit and/or counseling patient: Coding Level of Care Code 96787 Subseq Hosp Care Lvl 3 Diagnoses ESRD needing dialysis N18.6; Z99.2 Pneumonia due to COVID-19 virus U07.1; J12.82 Vertigo R42 Hypoxia R09.02 Nausea & vomiting R11.2 Anemia D64.9 Anemia type: unspecified type Hypocalcemia E83.51 Diabetes mellitus with hyperglycemia E11.65 Ileus K56.7 Elevated troponin I level R77.8 Hypoalbuminemia E88.09 Homelessness Z59.0 Hypomagnesemia E83.42 GERD (gastroesophageal reflux disease) K21.9 Hypertension I10 Elevated alkaline phosphatase level R74.8 DVT prophylaxis Z29.9 (1) Anemia Anemia type: unspecified type Qualified Code(s): D64.9 - Anemia, unspecified
[2020-04-12] MEDS ORDERED: INSULIN GLARGINE SOLOSTAR 100 UNITS/ML 3 ML PEN SC SCH (21:00)
[2020-04-13] MEDS: PIPERACILLIN/TAZOBACTAM 4.5 GM in DEXTROSE 5% 100 ML IV SCH ×2 (01:45→15:26)
[2020-04-13] MEDS: HEPARIN SOD 5,000 UNIT/0.5 ML VIAL SQ SCH ×3 (05:52→20:46)
[2020-04-13 07:06] LABS: Basophils # (auto) 0.01 K/uL (0-0.2); Basophils % (auto) 0.1 %; Hematocrit (blood only) 30.5 % (42-52); Hemoglobin 10.3 g/dL (14.0-18.0); Immature Granulocytes # (auto) 0.14 K/uL (0.00-0.02); Immature Granulocytes % (auto) 1.5 %; Lymphocytes % (auto) 5.3 %; Mean Corpuscular Hemoglobin 28.5 pg (25-34); Mean Corpuscular Hgb Conc 33.8 g/dL (32-36); Mean Corpuscular Volume 84.3 fL (80-100); Mean Platelet Volume 9.7 fL (7.4-10.4); Monocytes # (auto) 0.83 K/uL (0.11-0.59); Monocytes % (auto) 8.8 %; Neutrophils # (auto) 7.95 K/uL (1.4-6.5); Neutrophils % (auto) 84.3 %; Nucleated RBC # (auto) 0.04 K/uL (0-0); Nucleated RBC % (auto) 0.4 %; Platelet Count 185 K/uL (130-400); RDW Coefficient of Variation 14.5 % (11.5-14.5); RDW Standard Deviation 44.7 fL (36.4-46.3); Red Blood Count 3.62 M/uL (4.7-6.1); White Blood Count 9.43 K/uL (4.8-10.8)
[2020-04-13] MEDS ORDERED: HEPARIN SOD (PORCINE) 5,000 UNITS/ML VIAL ONE (07:56)
[2020-04-13] MEDS ORDERED: LIDOCAINE HCL 1% 20 ML VIAL ONE (07:57)
[2020-04-13 08:08] LABS: Albumin Globulin Ratio 0.5 (0.9-2); Albumin Level 1.8 gm/dl (3.4-5.0); BUN Creatinine Ratio 6.6 (10-20); Bilirubin,Total 0.4 mg/dl (0.2-1); Creatinine Clr Calc Pharmacy 11.5 ml/min; Est GFR (African American) 7.5; Est GFR (Non-African American) 6.5; Magnesium 2.1 mg/dl (1.8-2.4); Potassium 3.3 mmol/L (3.5-5.1); Total Protein 5.8 gm/dl (6.4-8.2)
--- NOTE | 2020-04-13 08:09 | Communication Note ---
Date of Service: April 13, 2020 Patient did not have his temporary dialysis catheter removed yesterday. Will have to have it removed on Thursday and will place a permcath Thursday in am.
[2020-04-13] MEDS: dexAMETHasone 6 MG in SYRINGE 0 ML IV SCH (09:03)
[2020-04-13] MEDS: CALCITRIOL 0.25 MCG CAPSULE PO SCH (09:04)
[2020-04-13] MEDS: ROSUVASTATIN CALCIUM 10 MG TAB PO SCH (09:04)
[2020-04-13] MEDS: PANTOprazole 40 MG TAB PO SCH (09:06)
[2020-04-13] MEDS: amLODIPine BESYLATE 5 MG TAB PO SCH (09:06)
[2020-04-13] MEDS: FERROUS SULFATE 325 MG TAB PO SCH (09:06)
[2020-04-13] MEDS: allopurinoL 100 MG TAB PO SCH (09:07)
[2020-04-13] MEDS: SEVELAMER HCL 800 MG TABLET PO SCH ×3 (09:08→16:31)
[2020-04-13] MEDS: NEPHROCAPS PO SCH (09:08)
[2020-04-13] MEDS: INSULIN ASPART 100 UNITS/ML 3 ML PEN SC SCH ×4 (09:09→20:30)
[2020-04-13] MEDS: AZITHROMYCIN 250 MG in DEXTROSE 5% 250 ML IV SCH (09:16)
[2020-04-13] MEDS: IRON SUCROSE 200 MG in 0.9 % SODIUM CHLORIDE 100 ML IV SCH (09:16)
--- NOTE | 2020-04-13 11:56 | Nephrology Progress Note ---
Date of Service April 13, 2020 Assessment & Plan (1) ESRD needing dialysis: 64 y o m with history of baseline advanced CKD, admitted with COVID-19 pneumonia, generalized volume overload, LINDSEY, anemia and multiple critical electrolyte abnormality. With underlying baseline advanced CKD, anemia, hypocalcemia and electrolyte abnormality, all points towards end-stage renal disease instead of LINDSEY. Advanced CKD, end-stage renal disease most likely secondary to diabetic and hypertensive nephropathy, which progressively worsened rather rapidly as patient has been off of any medical care or medication for last more than a year. Started on hemodialysis on 04/09/2020 via temporary dialysis catheter considering COVID-19 pneumonia. --plan to remove temporary dialysis catheter on Thursday and tunnel catheter placement Thursday morning. Plan for dialysis Thursday after tunneled dialysis catheter placement however if volume status and electrolyte acceptable he can be discharged after tunneled catheter placement on Thursday and have dialysis Thursday at the [facility] clinic considering COVID -- Epogen 37770 units given on 04/10/20, on Venofer 200 mg IV for total 5 doses, s/p 3 PRBC --continue Calcitriol, on Renvela 1 tab with each meal as phosphate binder --dose medications for GFR less than 10, left arm nephrology precaution for future AV fistula Will follow (2) Acidosis: (3) Hypocalcemia: (4) Fluid overload: (5) Pneumonia due to COVID-19 virus: (6) Proteinuria: Admission and Anticipated Discharge Date Admission Date: April 09, 2020 Guilherme Pavon was seen and examined in his room this morning. Overall he is doing well, denies any specific symptoms, denies any pain. No shortness of breath or chest pain. Currently tolerating dialysis, tolerating ultrafiltration, blood pressure stable. Review of Systems Review of Systems: All systems reviewed & are unremarkable except as noted in Subjective Physical Exam Constitutional: WD/WN, vitals as above + ill appearing; no acute distress Neck: normal visual inspection and trachea midline Respiratory: normal respiratory effort, lungs clear to auscultation + cough Cardiovascular: Rate/Rhythm: regular rate and regular rhythm Heart Sounds: normal S1 and normal S2 Extremities: + edema Gastrointestinal (Abdomen): normal bowel sounds, soft, nontender, no hepatosplenomegaly Inspection/Auscultation: normal bowel sounds and + abdominal edema Percussion/Palpation: abdomen soft; abdomen nontender, no guarding and abdomen not rigid Musculoskeletal: Head/Neck/Chest: head atraumatic Extremities: extremities normal to inspection Gait: normal gait Results & Data ([facility]) Vital Signs (Past 12 Hours) Vital Signs Temp Pulse Pulse Pulse Resp BP BP 04/13/20 11:40 84 144/91 H 04/13/20 11:20 83 130/79 04/13/20 11:00 86 154/81 H 04/13/20 10:40 84 144/83 H 04/13/20 10:20 90 138/78 04/13/20 10:00 81 153/85 H 04/13/20 09:40 72 150/78 H 04/13/20 09:20 82 133/79 04/13/20 09:10 36.7 C 77 04/13/20 08:49 72 04/13/20 08:02 36.8 C 76 19 167/85 H 04/13/20 04:35 36.8 C 69 16 BP Pulse Ox 04/13/20 11:40 04/13/20 11:20 04/13/20 11:00 04/13/20 10:40 04/13/20 10:20 04/13/20 10:00 04/13/20 09:40 04/13/20 09:20 04/13/20 09:10 04/13/20 08:49 04/13/20 08:02 97 04/13/20 04:35 156/84 H 93 PG Care Time/CCT Total # of Minutes Spent Total Time Spent with Patient: Total time spent is greater than 50% in coordination of care (as documented) at patient's floor/unit and/or counseling patient: Coding Level of Care Code 43384 Subseq Hosp Care Lvl 3 Diagnoses ESRD needing dialysis N18.6; Z99.2 Acidosis E87.2 Hypocalcemia E83.51 Fluid overload E87.70 Hypervolemia type: unspecified Pneumonia due to COVID-19 virus U07.1; J12.82 Proteinuria R80.9 (1) Fluid overload Hypervolemia type: unspecified Qualified Code(s): E87.70 - Fluid overload, unspecified
--- NOTE | 2020-04-13 17:13 | Hospitalist Progress Note ---
Date of Service April 13, 2020 Assessment & Plan (1) ESRD needing dialysis: Presented with a creatinine of 16, BUN 125 With a history of CKD stage IV-V in the past and no ongoing medical care for the last year due to having no insurance Had temporary dialysis catheter placed on 04/09 by general technician Has received hemodialysis on 04/09, and 04/10, 04/11, and 04/12-tolerated well except was having some nausea and vomiting initially now resolved Electrolytes are all much improved, remains hypertensive and volume overloaded with hypoxia and pulmonary edema but is also improving. Presented with metabolic acidosis, hypocalcemia, and severe anemia as below. All now improving Appreciate nephrology consultation PermCath placement pushed back till Thursday now -will continue on HD 3 times a week starting Thursday- has outpatient referrals to set up outpatient hemodialysis -needs to be NPO after midnight on Thursday for surgery Thursday Follow renal panel in the morning along with CBC Continue sevelamer, started Nephrocaps, receiving IV iron and Epogen -Started calcitriol -Renally dose medications for GFR less than 10 (2) Pneumonia due to COVID-19 virus: Pneumonia due to COVID-19 virus with hypoxia-initially required BiPAP and is now weaned down to 1 L nasal cannula after volume removal with IV Lasix as well as hemodialysis and starting dexamethasone Continue dexamethasone 6 mg IV every morning x10-day course-last dose will be 04/17/2020 Continue Duonebs every 4 hours while awake and every 2 hours when necessary. Procalcitonin was elevated at 1.1 so may be secondary bacterial involvement Continue azithromycin 250 mg IV daily x5-day course-last dose will be 04/13 Continue Zosyn x7-day course-last dose will be 04/15 Follow chest x-ray to resolution as an outpatient (3) Vertigo: With intermittent vertigo causing nausea and vomiting which comes on with changes in position. He reports this is a chronic issue May be worsened by volume overload Now resolved, received 1 dose of IV Benadryl and stopped Nitropaste -Continue IV Benadryl as needed for nausea and vertigo Would avoid benzodiazepines given severe renal failure Antiemetics with Zofran as needed (4) Hypoxia: With acute respiratory failure with hypoxia See above, secondary to volume overload from renal failure as well as Covid-19 pneumonia Improving (5) Nausea & vomiting: As above, likely secondary to BPPV as well as uremia and Covid-19 Now resolved, lauryn reg diet (6) Anemia: Hemoglobin remained at 7.2 despite 1 unit PRBCs on 04/09, but is now up to 10 and stable after 2 more units of PRBCs on 04/10 No gross bleeding from anywhere. Most likely secondary to anemia of chronic kidney disease Transferrin saturation 20% B12 is normal, folate low normal at 6 Nephrology ordered 5 doses of IV Venofer Continue p.o. ferrous sulfate Hemoccult stool pending Started Nephrocaps with folate Follow CBC in the morning (7) Hypocalcemia: Calcium level severely low at 5.5 on admission here but now normal after several days of correction with IV calcium gluconate-corrected calcium for hypoalbuminemia today is up to 8.8 which is normal This is secondary to severe renal failure Follow calcium and albumin levels in the morning (8) Diabetes mellitus with hyperglycemia: Hold glimepiride from home Blood sugars were better controlled but now worsening hyperglycemia now that he is eating more and on dexamethasone, persists today Continue Accu-Cheks before meals and at bedtime with NovoLog coverage per scale -Added Lantus and will increase to 10 units tonight and tighten down Novolog SSI Hemoglobin A1c 5.4% but is likely inaccurate in the setting of severe anemia and renal failure (9) Ileus: With mild abdominal distention here and nausea/vomiting which is now resolved Abdominal distention is now improved, moving his bowels Likely secondary to uremia Now lauryn reg diet (10) Elevated troponin I level: Troponin mildly elevated at 0.06/0.112 Repeat is minimally elevated over initial He has no chest pain, ECG was without ischemic changes Most likely myocardial demand ischemia in the setting of renal failure and Covid-19 with profound hypoxia Cannot get echo and less urgent as he is a Covid patient and I do not feel this is urgent (11) Hypoalbuminemia: Albumin is stable at 2.0 Secondary to acute illness and poor nutrition He was given IV albumin initially upon admission (12) Homelessness: He mostly lives out of his truck but does sleep at his sister's house although he reports his sister officially evicted him today while he was in the hospital Case management is involved (13) Hypomagnesemia: Replaced Resolved (14) GERD (gastroesophageal reflux disease): No acute issues Continue home Protonix (15) Hypertension: Blood pressures remained quite elevated secondary to renal failure and volume overload--> NOW much improved Continue amlodipine, IV hydralazine as needed -continue increased dose of amlodipine to 10 mg (16) Elevated alkaline phosphatase level: Alkaline phosphatase is elevated at 232 but is down from 400 previously This is likely secondary to renal osteodystrophy, plus may have some fatty liver Started calcitriol, phosphate binders Follow LFTs (17) DVT prophylaxis: Heparin SQ Disposition-continued stay on PCU, slowly improving, expect discharge possibly to rehab on Thursday after perm cath placemetn and HD on Thursday Admission and Anticipated Discharge Date Admission Date: April 09, 2020 Subjective Pt feeling better, not SOB, was ambulating in the room today, is weaned to 1 LNC. No further nausea or vomiting and is eating regular food. Has a low grade temp but no headache. No abd pain and had one loose stool today. Had HD today and removed 3 L Perm cath placement cancelled today as temp HD catheter not removed yesterday as ordered by Vascular [facility]. Plan to do now on Thursday Review of Systems Review of Systems: All systems reviewed & are unremarkable except as noted in HPI & below Physical Exam Constitutional: WD/WN, vitals as above + obese; no acute distress Eyes: + anicteric sclerae ENMT: Ears: no hearing impairment Nose: no external nose abnormality Neck: trachea midline, no thyromegaly Respiratory: normal respiratory effort Auscultation: + crackles (Mild at the bases, improved); no rhonchi and no wheezes Cardiovascular: Rate/Rhythm: regular rate and regular rhythm Heart Sounds: no murmur Extremities: + edema (1+ pitting edema of the legs bilaterally) and + vascular access device (Right IJ catheter without surrounding erythema) Chest (Breasts): Chest: normal inspection of chest Gastrointestinal (Abdomen): Inspection/Auscultation: + abdomen distended (Mildly but improved from yesterday) and normal bowel sounds Percussion/Palpation: abdomen soft; abdomen nontender Musculoskeletal: Extremities: extremities normal to inspection; no cyanosis and no clubbing Skin: no rashes, warm and dry Neurologic: moves all extremities and awake; no focal motor deficits and not confused Psychiatric: A+Ox3, euthymic affect Lymphatic: no lymphedema Results & Data Results & Data ([facility]) Vital Signs (Past 12 Hours) Vital Signs Temp Pulse Pulse Pulse Resp BP BP 04/13/20 16:12 97 H 04/13/20 15:53 37.2 C 83 21 04/13/20 13:24 36.6 C 90 04/13/20 13:00 97 H 138/82 04/13/20 12:40 104 H 127/85 04/13/20 12:20 91 H 117/99 04/13/20 12:00 54 L 110/87 04/13/20 11:40 84 144/91 H 04/13/20 11:20 83 130/79 04/13/20 11:00 86 154/81 H 04/13/20 10:40 84 144/83 H 04/13/20 10:20 90 138/78 04/13/20 10:00 81 153/85 H 04/13/20 09:40 72 150/78 H 04/13/20 09:20 82 133/79 04/13/20 09:10 36.7 C 77 04/13/20 08:49 72 04/13/20 08:02 36.8 C 76 19 167/85 H BP Pulse Ox 04/13/20 16:12 04/13/20 15:53 139/68 96 04/13/20 13:24 145/88 H 04/13/20 13:00 04/13/20 12:40 04/13/20 12:20 04/13/20 12:00 04/13/20 11:40 04/13/20 11:20 04/13/20 11:00 04/13/20 10:40 04/13/20 10:20 04/13/20 10:00 04/13/20 09:40 04/13/20 09:20 04/13/20 09:10 04/13/20 08:49 04/13/20 08:02 97 Laboratory Results 04/13/20 04/13/20 04/13/20 Range/Units 16:33 11:30 07:19 WBC (4.8-10.8) K/uL RBC (4.7-6.1) M/uL Hgb (14.0-18.0) g/dL Hct (42-52) % MCV (80-100) fL MCH (25-34) pg MCHC (32-36) g/dL RDW Std Deviation (36.4-46.3) fL RDW Coeff of Inderjit (11.5-14.5) % Plt Count (130-400) K/uL MPV (7.4-10.4) fL Immature Gran % (Auto) % Neut % (Auto) % Lymph % (Auto) % [place] % (Auto) % Eos % (Auto) % Baso % (Auto) % Neut # (Auto) (1.4-6.5) K/uL Lymph # (Auto) (1.2-3.4) K/uL [place] # (Auto) (0.11-0.59) K/uL Eos # (Auto) (0-0.5) K/uL Baso # (Auto) (0-0.2) K/uL Immature Gran # (Auto) (0.00-0.02) K/uL Absolute Nucleated RBC (0-0) K/uL Nucleated RBC % (auto) % Sodium (136-145) mmol/L Potassium (3.5-5.1) mmol/L Chloride (98-107) mmol/L Carbon Dioxide (21-32) mmol/L Anion Gap (3-11) BUN (7-18) mg/dl Creatinine (0.6-1.4) mg/dl Est Cr Clr Drug Dosing ml/min Est GFR ( Amer) Est GFR (Non-Af Amer) BUN/Creatinine Ratio (10-20) Glucose (70-99) mg/dl POC Glucose 211 H 151 H 141 H (70-99) mg/dl Calcium (8.5-10.1) mg/dl Magnesium (1.8-2.4) mg/dl Total Bilirubin (0.2-1) mg/dl AST (15-37) U/L ALT (12-78) U/L Alkaline Phosphatase (45-117) U/L Total Protein (6.4-8.2) gm/dl Albumin (3.4-5.0) gm/dl Globulin (2.5-4.0) gm/dl Albumin/Globulin Ratio (0.9-2) 04/13/20 04/13/20 04/12/20 Range/Units 06:06 06:06 20:36 WBC 9.43 (4.8-10.8) K/uL RBC 3.62 L (4.7-6.1) M/uL Hgb 10.3 L (14.0-18.0) g/dL Hct 30.5 L (42-52) % MCV 84.3 (80-100) fL MCH 28.5 (25-34) pg MCHC 33.8 (32-36) g/dL RDW Std Deviation 44.7 (36.4-46.3) fL RDW Coeff of Inderjit 14.5 (11.5-14.5) % Plt Count 185 (130-400) K/uL MPV 9.7 (7.4-10.4) fL Immature Gran % (Auto) 1.5 % Neut % (Auto) 84.3 % Lymph % (Auto) 5.3 % [place] % (Auto) 8.8 % Eos % (Auto) 0.0 % Baso % (Auto) 0.1 % Neut # (Auto) 7.95 H (1.4-6.5) K/uL Lymph # (Auto) 0.50 L (1.2-3.4) K/uL [place] # (Auto) 0.83 H (0.11-0.59) K/uL Eos # (Auto) 0.00 (0-0.5) K/uL Baso # (Auto) 0.01 (0-0.2) K/uL Immature Gran # (Auto) 0.14 H (0.00-0.02) K/uL Absolute Nucleated RBC 0.04 H (0-0) K/uL Nucleated RBC % (auto) 0.4 % Sodium 135 L (136-145) mmol/L Potassium 3.3 L (3.5-5.1) mmol/L Chloride 98 (98-107) mmol/L Carbon Dioxide 28 (21-32) mmol/L Anion Gap 9.0 (3-11) BUN 53 H (7-18) mg/dl Creatinine 8.02 H* D (0.6-1.4) mg/dl Est Cr Clr Drug Dosing 11.5 ml/min Est GFR ( Amer) 7.5 Est GFR (Non-Af Amer) 6.5 BUN/Creatinine Ratio 6.6 L (10-20) Glucose 127 H (70-99) mg/dl POC Glucose 228 H (70-99) mg/dl Calcium 7.0 L (8.5-10.1) mg/dl Magnesium 2.1 (1.8-2.4) mg/dl Total Bilirubin 0.4 (0.2-1) mg/dl AST 23 (15-37) U/L ALT 21 (12-78) U/L Alkaline Phosphatase 232 H (45-117) U/L Total Protein 5.8 L (6.4-8.2) gm/dl Albumin 1.8 L (3.4-5.0) gm/dl Globulin 4.0 (2.5-4.0) gm/dl Albumin/Globulin Ratio 0.5 L (0.9-2) PG Care Time/CCT Total # of Minutes Spent Total Time Spent with Patient: Total time spent is greater than 50% in coordination of care (as documented) at patient's floor/unit and/or counseling patient: Coding Level of Care Code 49429 Subseq Hosp Care Lvl 3 Diagnoses ESRD needing dialysis N18.6; Z99.2 Pneumonia due to COVID-19 virus U07.1; J12.82 Vertigo R42 Hypoxia R09.02 Nausea & vomiting R11.2 Anemia D64.9 Anemia type: unspecified type Hypocalcemia E83.51 Diabetes mellitus with hyperglycemia E11.65 Ileus K56.7 Elevated troponin I level R77.8 Hypoalbuminemia E88.09 Homelessness Z59.0 Hypomagnesemia E83.42 GERD (gastroesophageal reflux disease) K21.9 Hypertension I10 Elevated alkaline phosphatase level R74.8 DVT prophylaxis Z29.9 (1) Anemia Anemia type: unspecified type Qualified Code(s): D64.9 - Anemia, unspecified
[2020-04-13] MEDS: INSULIN GLARGINE SOLOSTAR 100 UNITS/ML 3 ML PEN SC SCH (20:30)
[2020-04-14] MEDS: PIPERACILLIN/TAZOBACTAM 4.5 GM in DEXTROSE 5% 100 ML IV SCH ×2 (00:58→13:30)
[2020-04-14] MEDS: METOPROLOL TARTRATE 1 MG/ML VIAL IV PRN (03:59)
[2020-04-14 06:09] LABS: Basophils # (auto) 0.01 K/uL (0-0.2); Basophils % (auto) 0.1 %; Eosinophils # (auto) 0.01 K/uL (0-0.5); Eosinophils % (auto) 0.1 %; Hematocrit (blood only) 31.2 % (42-52); Hemoglobin 10.4 g/dL (14.0-18.0); Immature Granulocytes # (auto) 0.28 K/uL (0.00-0.02); Immature Granulocytes % (auto) 2.5 %; Lymphocytes # (auto) 0.45 K/uL (1.2-3.4); Mean Corpuscular Hemoglobin 28.3 pg (25-34); Mean Corpuscular Hgb Conc 33.3 g/dL (32-36); Mean Corpuscular Volume 84.8 fL (80-100); Monocytes # (auto) 1.07 K/uL (0.11-0.59); Monocytes % (auto) 9.6 %; Neutrophils % (auto) 83.7 %; Nucleated RBC # (auto) 0.06 K/uL (0-0); Nucleated RBC % (auto) 0.6 %; Platelet Count 188 K/uL (130-400); RDW Coefficient of Variation 14.3 % (11.5-14.5); RDW Standard Deviation 44.7 fL (36.4-46.3); Red Blood Count 3.68 M/uL (4.7-6.1); White Blood Count 11.12 K/uL (4.8-10.8)
[2020-04-14] MEDS: HEPARIN SOD 5,000 UNIT/0.5 ML VIAL SQ SCH ×3 (06:25→21:34)
[2020-04-14 07:07] LABS: Albumin Globulin Ratio 0.5 (0.9-2); Albumin Level 1.9 gm/dl (3.4-5.0); BUN Creatinine Ratio 6.3 (10-20); Bilirubin,Total 0.6 mg/dl (0.2-1); Calcium 6.9 mg/dl (8.5-10.1); Creatinine Clr Calc Pharmacy 15.3 ml/min; Est GFR (African American) 10.8; Est GFR (Non-African American) 9.3; Globulin 4.1 gm/dl (2.5-4.0); Magnesium 1.9 mg/dl (1.8-2.4); Potassium 3.4 mmol/L (3.5-5.1)
[2020-04-14] MEDS: INSULIN ASPART 100 UNITS/ML 3 ML PEN SC SCH ×4 (08:36→21:27)
[2020-04-14] MEDS: SEVELAMER HCL 800 MG TABLET PO SCH (08:39)
[2020-04-14] MEDS: amLODIPine BESYLATE 5 MG TAB PO SCH (08:39)
[2020-04-14] MEDS: FERROUS SULFATE 325 MG TAB PO SCH (08:40)
[2020-04-14] MEDS: CALCITRIOL 0.25 MCG CAPSULE PO SCH (08:40)
[2020-04-14] MEDS: PANTOprazole 40 MG TAB PO SCH (08:40)
[2020-04-14] MEDS: allopurinoL 100 MG TAB PO SCH (08:41)
[2020-04-14] MEDS: ROSUVASTATIN CALCIUM 10 MG TAB PO SCH (08:41)
[2020-04-14] MEDS: NEPHROCAPS PO SCH (08:41)
[2020-04-14] MEDS: dexAMETHasone 6 MG in SYRINGE 0 ML IV SCH (08:42)
[2020-04-14] MEDS ORDERED: CALCIUM GLUCONATE 10% 1,000 MG in SODIUM CHLORIDE 0.9% 50 ML IV ONE (08:45)
[2020-04-14] MEDS: IRON SUCROSE 200 MG in 0.9 % SODIUM CHLORIDE 100 ML IV SCH (08:48)
--- NOTE | 2020-04-14 11:45 | Nephrology Progress Note ---
Date of Service April 14, 2020 Assessment & Plan (1) ESRD needing dialysis: Adequate clearance with HD yesterday. Volume status acceptable. Next anticipated dialysis treatment would be Thursday. Started on hemodialysis on 04/09/2020 via temporary dialysis catheter. Permcath placement scheduled with Dr. Mayo for Thursday. Due to COVID+, isolation precautions in place for 14 days post +test. This would require HD at isolation unit in [facility] if discharged prior. Otherwise, Librado plans to start HD at [facility] post discharge. Medications are appropriately dosed for kidney function. (2) Anemia: s/p PRBC transfusion support x 3 u. Venofer 200 mg IV x 5 doses completed. Epogen 64161 units given on 04/10/20. (3) Hypocalcemia: CKD/MBD with sPTH. Additional IV calcium provided this AM. Corrected calcium >8.5. Non calcium based PO4 binder switched to calcium acetate this AM. Calcitriol 0.5 QAM. Repeat metabolic profile + PO4 in the AM. (4) Fluid overload: Improving with HD. Low sodium diet and fluid restriction <1.5 L/d. (5) Pneumonia due to COVID-19 virus: Discharge planning considerations discussed with primary team. Admission and Anticipated Discharge Date Admission Date: April 09, 2020 Subjective No acute events overnight. Plan of care discussed with Dr. Romo and Dr. Mayo this AM. Tolerated HD yesterday without complications. Net UF 3 L. Edema improving. Dyspnea improving. Review of Systems Review of Systems: All systems reviewed & are unremarkable except as noted in HPI & below Physical Exam Physical Exam: Deferred due to COVID. Results & Data ([facility]) Vital Signs (Past 12 Hours) Vital Signs Temp Pulse Pulse Pulse Resp BP Pulse Ox 04/14/20 11:03 37.0 C 82 19 154/80 H 92 04/14/20 07:38 36.8 C 79 20 164/86 H 96 04/14/20 07:00 73 04/14/20 04:30 168/91 H 04/14/20 03:58 191/81 H 04/14/20 03:32 36.6 C 84 22 177/85 H 95 04/14/20 02:25 78 Laboratory Results Laboratory Results - last 24 hr 02/12/21 02/12/21 02/13/21 16:33 20:13 05:39 WBC 11.12 H RBC 3.68 L Hgb 10.4 L Hct 31.2 L MCV 84.8 MCH 28.3 MCHC 33.3 RDW Std Deviation 44.7 RDW Coeff of Inderjit 14.3 Plt Count 188 MPV 10.0 Immature Gran % (Auto) 2.5 Neut % (Auto) 83.7 Lymph % (Auto) 4.0 [place] % (Auto) 9.6 Eos % (Auto) 0.1 Baso % (Auto) 0.1 Neut # (Auto) 9.30 H Lymph # (Auto) 0.45 L [place] # (Auto) 1.07 H Eos # (Auto) 0.01 Baso # (Auto) 0.01 Immature Gran # (Auto) 0.28 H Absolute Nucleated RBC 0.06 H Nucleated RBC % (auto) 0.6 Sodium Potassium Chloride Carbon Dioxide Anion Gap BUN Creatinine Est Cr Clr Drug Dosing Est GFR ( Amer) Est GFR (Non-Af Amer) BUN/Creatinine Ratio Glucose POC Glucose 211 H 260 H Calcium Magnesium Total Bilirubin AST ALT Alkaline Phosphatase Total Protein Albumin Globulin Albumin/Globulin Ratio 04/14/20 04/14/20 05:39 08:12 WBC RBC Hgb Hct MCV MCH MCHC RDW Std Deviation RDW Coeff of Inderjit Plt Count MPV Immature Gran % (Auto) Neut % (Auto) Lymph % (Auto) [place] % (Auto) Eos % (Auto) Baso % (Auto) Neut # (Auto) Lymph # (Auto) [place] # (Auto) Eos # (Auto) Baso # (Auto) Immature Gran # (Auto) Absolute Nucleated RBC Nucleated RBC % (auto) Sodium 133 L Potassium 3.4 L Chloride 97 L Carbon Dioxide 28 Anion Gap 8.0 BUN 36 H Creatinine 5.95 H* D Est Cr Clr Drug Dosing 15.3 Est GFR ( Amer) 10.8 Est GFR (Non-Af Amer) 9.3 BUN/Creatinine Ratio 6.3 L Glucose 160 H POC Glucose 170 H Calcium 6.9 L Magnesium 1.9 Total Bilirubin 0.6 AST 34 ALT 35 Alkaline Phosphatase 292 H Total Protein 6.0 L Albumin 1.9 L Globulin 4.1 H Albumin/Globulin Ratio 0.5 L PG Care Time/CCT Total # of Minutes Spent Total Time Spent with Patient: Total time spent is greater than 50% in coordination of care (as documented) at patient's floor/unit and/or counseling patient: Coding Level of Care Code 76233 Subseq Hosp Care Lvl 3 Diagnoses ESRD needing dialysis N18.6; Z99.2 Anemia D64.9 Anemia type: unspecified type Hypocalcemia E83.51 Fluid overload E87.70 Hypervolemia type: unspecified Pneumonia due to COVID-19 virus U07.1; J12.82 (1) Fluid overload Hypervolemia type: unspecified Qualified Code(s): E87.70 - Fluid overload, unspecified (2) Anemia Anemia type: unspecified type Qualified Code(s): D64.9 - Anemia, unspecified
[2020-04-14] MEDS: CALCIUM ACETATE 667 MG CAP/TAB PO SCH ×2 (13:30→17:26)
--- NOTE | 2020-04-14 19:41 | Hospitalist Progress Note ---
Date of Service April 14, 2020 Assessment & Plan (1) ESRD needing dialysis: Presented with a creatinine of 16, BUN 125 with severe volume overload and respiratory failure as well as hypertensive urgency With a history of CKD stage IV-V in the past and no ongoing medical care for the last year due to having no insurance Had temporary dialysis catheter placed on 04/09 by daytime caregiver Has received hemodialysis on 04/09, and 04/10, 04/11, and 04/12-tolerated well except was having some nausea and vomiting initially now resolved Electrolytes are all much improved, remains hypertensive but much improved, volume overload also much improved -Hypoxia resolved and pulmonary edema much improved on examination Presented with metabolic acidosis, hypocalcemia, and severe anemia as below. All now improving Appreciate nephrology consultation PermCath placement pushed back till Thursday -will continue on HD 3 times a week starting Thursday- has outpatient referrals to set up outpatient hemodialysis -needs to be NPO after midnight on Thursday for surgery Thursday Follow renal panel in the morning along with CBC Due to hypocalcemia, nephrology changed sevelamer to PhosLo instead -Started Nephrocaps, receiving IV iron and Epogen -Started calcitriol 0.5 mcg once daily -Renally dose medications for GFR less than 10 He will need his temporary dialysis catheter removed on Thursday (2) Pneumonia due to COVID-19 virus: Pneumonia due to COVID-19 virus with hypoxia-initially required BiPAP and is now weaned to room air on 04/14 after volume removal with IV Lasix as well as hemodialysis and starting dexamethasone Continue dexamethasone 6 mg IV every morning x10-day course-last dose will be 04/17/2020 Continue Duonebs every 4 hours while awake and every 2 hours when necessary. Procalcitonin was elevated at 1.1 so may be secondary bacterial involvement- repeat procalcitonin in the morning Completed a 5-day course of azithromycin Continue Zosyn x7-day course-last dose will be 04/15 Follow chest x-ray to resolution as an outpatient (3) Vertigo: With intermittent vertigo causing nausea and vomiting which comes on with changes in position. He reports this is a chronic issue May be worsened by volume overload Now resolved, received 1 dose of IV Benadryl and stopped Nitropaste -Continue IV Benadryl as needed for nausea and vertigo Would avoid benzodiazepines given severe renal failure Antiemetics with Zofran as needed (4) Hypoxia: With acute respiratory failure with hypoxia See above, secondary to volume overload from renal failure as well as Covid-19 pneumonia Resolved (5) Nausea & vomiting: As above, likely secondary to BPPV as well as uremia and Covid-19 Now resolved, lauryn reg diet (6) Anemia: Hemoglobin remained at 7.2 despite 1 unit PRBCs on 04/09, but is now up to 10.4 and stable after 2 more units of PRBCs on 04/10 and IV iron as well as Epogen No gross bleeding from anywhere. Most likely secondary to anemia of chronic kidney disease Transferrin saturation 20% B12 is normal, folate low normal at 6 Nephrology ordered 5 doses of IV Venofer Continue p.o. ferrous sulfate Hemoccult stool pending Started Nephrocaps with folate Follow CBC in the morning (7) Hypocalcemia: Calcium level severely low at 5.5 on admission here but now normal after several days of correction with IV calcium gluconate Mildly low again today-give another gram of IV calcium gluconate Changing sevelamer to PhosLo which has calcium in it This is secondary to severe renal failure Follow calcium and albumin levels in the morning (8) Diabetes mellitus with hyperglycemia: Hold glimepiride from home and would not restart in the setting of ESRD Blood sugars were better controlled but now worsening hyperglycemia now that he is eating more and on dexamethasone, persists today despite adding Lantus Continue Accu-Cheks before meals and at bedtime with NovoLog coverage per scale -Continue Lantus 10 units at bedtime and tighten down Novolog SSI again today Hemoglobin A1c 5.4% but is likely inaccurate in the setting of severe anemia and renal failure (9) Ileus: With mild abdominal distention here and nausea/vomiting which is now resolved Abdominal distention is now improved, moving his bowels Likely secondary to uremia Now lauryn reg diet (10) Elevated troponin I level: Troponin mildly elevated at 0.06/0.112 Repeat is minimally elevated over initial He has no chest pain, ECG was without ischemic changes Most likely myocardial demand ischemia in the setting of renal failure and Covid-19 with profound hypoxia Cannot get echo and less urgent as he is a Covid patient and I do not feel this is urgent (11) Hypoalbuminemia: Albumin is stable at 1.9 Secondary to acute illness and poor nutrition He was given IV albumin initially upon admission (12) Homelessness: He mostly lives out of his truck but does sleep at his sister's house although he reports his sister officially evicted him today while he was in the hospital Case management is involved and he has been given information on emergency housing after discharge (13) Hypomagnesemia: Replaced Resolved (14) GERD (gastroesophageal reflux disease): No acute issues Continue home Protonix (15) Hypertension: Blood pressures were quite elevated secondary to renal failure and volume overload--> NOW much improved Continue amlodipine, IV hydralazine as needed -continue increased dose of amlodipine to 10 mg (16) Elevated alkaline phosphatase level: Alkaline phosphatase is elevated at 232 but is down from 400 previously This is likely secondary to renal osteodystrophy, plus may have some fatty liver Started calcitriol, phosphate binders Follow LFTs (17) DVT prophylaxis: Heparin SQ Disposition-continued stay on PCU, slowly improving, expect discharge possibly to rehab on Thursday after perm cath placemetn and HD on Thursday Admission and Anticipated Discharge Date Admission Date: April 09, 2020 Subjective Patient feels tired today, but no nausea or vomiting. He is tolerating p.o. He has a persistent cough and does not feel like he can get his mucus out. Denies chest pains or shortness of breath. He has been weaned to room air. The overnight nurse last night shaved his whole cruz off and he feels really good about that. He is moving his bowels and making urine. Telemetry with normal sinus rhythm and a 6-second run of SVT overnight I discussed his case with nephrology Review of Systems Review of Systems: All systems reviewed & are unremarkable except as noted in HPI & below Physical Exam Constitutional: WD/WN, vitals as above + obese; no acute distress Eyes: + anicteric sclerae ENMT: Ears: no hearing impairment Nose: no external nose abnormality Neck: trachea midline, no thyromegaly Respiratory: normal respiratory effort Auscultation: + rhonchi (A few scattered bibasilar); no crackles and no wheezes Cardiovascular: Rate/Rhythm: regular rate and regular rhythm Heart Sounds: no murmur Extremities: + edema (2+ pitting edema of the legs bilaterally to the knees) and + vascular access device (Right IJ catheter without surrounding erythema but dressing is falling off) Chest (Breasts): Chest: normal inspection of chest Gastrointestinal (Abdomen): normal bowel sounds, soft, nontender, no hepatosplenomegaly Musculoskeletal: Extremities: no cyanosis and no clubbing Skin: no rashes, warm and dry Neurologic: moves all extremities and awake; no focal motor deficits and not confused Psychiatric: A+Ox3, euthymic affect Genitourinary: [place] catheter in place Results & Data Results & Data ([facility]) Vital Signs (Past 12 Hours) Vital Signs Temp Pulse Pulse Resp BP Pulse Ox 04/14/20 15:09 36.7 C 79 18 141/70 H 96 04/14/20 15:00 75 04/14/20 11:03 37.0 C 82 19 154/80 H 92 Laboratory Results 04/14/20 04/14/20 04/14/20 Range/Units 16:37 11:47 08:12 WBC (4.8-10.8) K/uL RBC (4.7-6.1) M/uL Hgb (14.0-18.0) g/dL Hct (42-52) % MCV (80-100) fL MCH (25-34) pg MCHC (32-36) g/dL RDW Std Deviation (36.4-46.3) fL RDW Coeff of Inderjit (11.5-14.5) % Plt Count (130-400) K/uL MPV (7.4-10.4) fL Immature Gran % (Auto) % Neut % (Auto) % Lymph % (Auto) % [place] % (Auto) % Eos % (Auto) % Baso % (Auto) % Neut # (Auto) (1.4-6.5) K/uL Lymph # (Auto) (1.2-3.4) K/uL [place] # (Auto) (0.11-0.59) K/uL Eos # (Auto) (0-0.5) K/uL Baso # (Auto) (0-0.2) K/uL Immature Gran # (Auto) (0.00-0.02) K/uL Absolute Nucleated RBC (0-0) K/uL Nucleated RBC % (auto) % Sodium (136-145) mmol/L Potassium (3.5-5.1) mmol/L Chloride (98-107) mmol/L Carbon Dioxide (21-32) mmol/L Anion Gap (3-11) BUN (7-18) mg/dl Creatinine (0.6-1.4) mg/dl Est Cr Clr Drug Dosing ml/min Est GFR ( Amer) Est GFR (Non-Af Amer) BUN/Creatinine Ratio (10-20) Glucose (70-99) mg/dl POC Glucose 228 H 179 H 170 H (70-99) mg/dl Calcium (8.5-10.1) mg/dl Magnesium (1.8-2.4) mg/dl Total Bilirubin (0.2-1) mg/dl AST (15-37) U/L ALT (12-78) U/L Alkaline Phosphatase (45-117) U/L Total Protein (6.4-8.2) gm/dl Albumin (3.4-5.0) gm/dl Globulin (2.5-4.0) gm/dl Albumin/Globulin Ratio (0.9-2) 04/14/20 04/14/20 04/13/20 Range/Units 05:39 05:39 20:13 WBC 11.12 H (4.8-10.8) K/uL RBC 3.68 L (4.7-6.1) M/uL Hgb 10.4 L (14.0-18.0) g/dL Hct 31.2 L (42-52) % MCV 84.8 (80-100) fL MCH 28.3 (25-34) pg MCHC 33.3 (32-36) g/dL RDW Std Deviation 44.7 (36.4-46.3) fL RDW Coeff of Inderjit 14.3 (11.5-14.5) % Plt Count 188 (130-400) K/uL MPV 10.0 (7.4-10.4) fL Immature Gran % (Auto) 2.5 % Neut % (Auto) 83.7 % Lymph % (Auto) 4.0 % [place] % (Auto) 9.6 % Eos % (Auto) 0.1 % Baso % (Auto) 0.1 % Neut # (Auto) 9.30 H (1.4-6.5) K/uL Lymph # (Auto) 0.45 L (1.2-3.4) K/uL [place] # (Auto) 1.07 H (0.11-0.59) K/uL Eos # (Auto) 0.01 (0-0.5) K/uL Baso # (Auto) 0.01 (0-0.2) K/uL Immature Gran # (Auto) 0.28 H (0.00-0.02) K/uL Absolute Nucleated RBC 0.06 H (0-0) K/uL Nucleated RBC % (auto) 0.6 % Sodium 133 L (136-145) mmol/L Potassium 3.4 L (3.5-5.1) mmol/L Chloride 97 L (98-107) mmol/L Carbon Dioxide 28 (21-32) mmol/L Anion Gap 8.0 (3-11) BUN 36 H (7-18) mg/dl Creatinine 5.95 H* D (0.6-1.4) mg/dl Est Cr Clr Drug Dosing 15.3 ml/min Est GFR ( Amer) 10.8 Est GFR (Non-Af Amer) 9.3 BUN/Creatinine Ratio 6.3 L (10-20) Glucose 160 H (70-99) mg/dl POC Glucose 260 H (70-99) mg/dl Calcium 6.9 L (8.5-10.1) mg/dl Magnesium 1.9 (1.8-2.4) mg/dl Total Bilirubin 0.6 (0.2-1) mg/dl AST 34 (15-37) U/L ALT 35 (12-78) U/L Alkaline Phosphatase 292 H (45-117) U/L Total Protein 6.0 L (6.4-8.2) gm/dl Albumin 1.9 L (3.4-5.0) gm/dl Globulin 4.1 H (2.5-4.0) gm/dl Albumin/Globulin Ratio 0.5 L (0.9-2) PG Care Time/CCT Total # of Minutes Spent Total Time Spent with Patient: Total time spent is greater than 50% in coordination of care (as documented) at patient's floor/unit and/or counseling patient: Coding Level of Care Code 85921 Subseq Hosp Care Lvl 3 Diagnoses ESRD needing dialysis N18.6; Z99.2 Pneumonia due to COVID-19 virus U07.1; J12.82 Vertigo R42 Hypoxia R09.02 Nausea & vomiting R11.2 Anemia D64.9 Anemia type: unspecified type Hypocalcemia E83.51 Diabetes mellitus with hyperglycemia E11.65 Ileus K56.7 Elevated troponin I level R77.8 Hypoalbuminemia E88.09 Homelessness Z59.0 Hypomagnesemia E83.42 GERD (gastroesophageal reflux disease) K21.9 Hypertension I10 Elevated alkaline phosphatase level R74.8 DVT prophylaxis Z29.9 (1) Anemia Anemia type: unspecified type Qualified Code(s): D64.9 - Anemia, unspecified
[2020-04-14] MEDS: INSULIN GLARGINE SOLOSTAR 100 UNITS/ML 3 ML PEN SC SCH (21:26)
[2020-04-15] MEDS: PIPERACILLIN/TAZOBACTAM 4.5 GM in DEXTROSE 5% 100 ML IV SCH ×2 (02:58→14:20)
[2020-04-15 06:13] LABS: Hematocrit (blood only) 29.4 % (42-52); Hemoglobin 9.9 g/dL (14.0-18.0); Mean Corpuscular Hemoglobin 28.5 pg (25-34); Mean Corpuscular Hgb Conc 33.7 g/dL (32-36); Mean Corpuscular Volume 84.7 fL (80-100); Mean Platelet Volume 10.7 fL (7.4-10.4); Nucleated RBC # (auto) 0.05 K/uL (0-0); Nucleated RBC % (auto) 0.4 %; Platelet Count 213 K/uL (130-400); RDW Coefficient of Variation 14.4 % (11.5-14.5); RDW Standard Deviation 44.3 fL (36.4-46.3); Red Blood Count 3.47 M/uL (4.7-6.1); White Blood Count 13.21 K/uL (4.8-10.8)
[2020-04-15 06:56] LABS: Albumin Level 1.8 gm/dl (3.4-5.0); Calcium 7.2 mg/dl (8.5-10.1); Creatinine Clr Calc Pharmacy 12.9 ml/min; Est GFR (African American) 8.8; Est GFR (Non-African American) 7.6; Potassium 3.1 mmol/L (3.5-5.1)
[2020-04-15] MEDS: INSULIN ASPART 100 UNITS/ML 3 ML PEN SC SCH ×4 (08:41→20:52)
[2020-04-15] MEDS: guaiFENesin/DEXTROM SYRUP 100MG/10MG 5ML UDC PO PRN ×2 (08:46→19:51)
[2020-04-15] MEDS: HEPARIN SOD 5,000 UNIT/0.5 ML VIAL SQ SCH ×3 (08:47→21:36)
[2020-04-15] MEDS: dexAMETHasone 6 MG in SYRINGE 0 ML IV SCH (08:47)
[2020-04-15] MEDS: PANTOprazole 40 MG TAB PO SCH (08:58)
[2020-04-15] MEDS: ROSUVASTATIN CALCIUM 10 MG TAB PO SCH (08:58)
[2020-04-15] MEDS: CALCIUM ACETATE 667 MG CAP/TAB PO SCH ×3 (08:58→17:44)
[2020-04-15] MEDS: amLODIPine BESYLATE 5 MG TAB PO SCH (08:58)
[2020-04-15] MEDS: NEPHROCAPS PO SCH (08:58)
[2020-04-15] MEDS: CALCITRIOL 0.25 MCG CAPSULE PO SCH (08:58)
[2020-04-15] MEDS: allopurinoL 100 MG TAB PO SCH (08:58)
[2020-04-15] MEDS: FERROUS SULFATE 325 MG TAB PO SCH (08:58)
--- NOTE | 2020-04-15 12:23 | Nephrology Progress Note ---
Date of Service April 15, 2020 Assessment & Plan (1) ESRD needing dialysis: Volume status acceptable. Next anticipated dialysis treatment would be Thursday. Started on hemodialysis on 04/09/2020 via temporary dialysis catheter. Temporary catheter to be removed today for Permcath placement scheduled with Dr. Mayo for tomorrow. Due to COVID+, isolation precautions in place for 14 days post +test. This would require HD at isolation unit in [facility] if discharged prior. Otherwise, L[facility]ado plans to start HD at [facility] post discharge. Medications are appropriately dosed for kidney function. (2) Anemia: s/p PRBC transfusion support x 3 u. Venofer 200 mg IV x 5 doses completed. Epogen 80599 units given on 04/10/20. (3) Hypocalcemia: CKD/MBD with sPTH. Additional IV calcium provided this AM. Corrected calcium >8.5. Non calcium based PO4 binder switched to calcium acetate this AM. Calcitriol 0.5 QAM. Repeat metabolic profile + PO4 in the AM. (4) Fluid overload: Improving with HD. Low sodium diet and fluid restriction <1.5 L/d. (5) Pneumonia due to COVID-19 virus: Discharge planning considerations discussed with primary team. Admission and Anticipated Discharge Date Admission Date: April 09, 2020 Subjective No acute events overnight. Plan of care reviewed with Dr. Romo. Labs and records reviewed but patient not seen personally due to COVID. Physical Exam Physical Exam: Deferred due to COVID. Results & Data ([facility]) Vital Signs (Past 12 Hours) Vital Signs Temp Pulse Pulse Pulse Resp BP Pulse Ox 04/15/20 10:53 36.7 C 89 20 172/79 H 93 04/15/20 08:00 103 H 04/15/20 07:17 37.2 C 96 H 20 169/86 H 92 04/15/20 03:47 36.9 C 80 18 157/80 H 92 Laboratory Results Laboratory Results - last 24 hr 04/14/20 04/14/20 04/15/20 16:37 20:39 05:34 WBC RBC Hgb Hct MCV MCH MCHC RDW Std Deviation RDW Coeff of Inderjit Plt Count MPV Absolute Nucleated RBC Nucleated RBC % (auto) Sodium 133 L Potassium 3.1 L Chloride 94 L Carbon Dioxide 25 Anion Gap 14.0 H BUN 49 H Creatinine 7.05 H* D Est Cr Clr Drug Dosing 12.9 Est GFR ( Amer) 8.8 Est GFR (Non-Af Amer) 7.6 BUN/Creatinine Ratio 7.0 L Glucose 139 H POC Glucose 228 H 187 H Calcium 7.2 L Phosphorus 3.0 Albumin 1.8 L Procalcitonin 04/15/20 04/15/20 04/15/20 05:34 05:34 07:29 WBC 13.21 H RBC 3.47 L Hgb 9.9 L Hct 29.4 L MCV 84.7 MCH 28.5 MCHC 33.7 RDW Std Deviation 44.3 RDW Coeff of Inderjit 14.4 Plt Count 213 MPV 10.7 H Absolute Nucleated RBC 0.05 H Nucleated RBC % (auto) 0.4 Sodium Potassium Chloride Carbon Dioxide Anion Gap BUN Creatinine Est Cr Clr Drug Dosing Est GFR ( Amer) Est GFR (Non-Af Amer) BUN/Creatinine Ratio Glucose POC Glucose 145 H Calcium Phosphorus Albumin Procalcitonin 1.92 H 04/15/20 11:17 WBC RBC Hgb Hct MCV MCH MCHC RDW Std Deviation RDW Coeff of Inderjit Plt Count MPV Absolute Nucleated RBC Nucleated RBC % (auto) Sodium Potassium Chloride Carbon Dioxide Anion Gap BUN Creatinine Est Cr Clr Drug Dosing Est GFR ( Amer) Est GFR (Non-Af Amer) BUN/Creatinine Ratio Glucose POC Glucose 192 H Calcium Phosphorus Albumin Procalcitonin PG Care Time/CCT Total # of Minutes Spent Total Time Spent with Patient: Total time spent is greater than 50% in coordination of care (as documented) at patient's floor/unit and/or counseling patient: Coding Level of Care Code 92566 Subseq Hosp Care Lvl 2 Diagnoses ESRD needing dialysis N18.6; Z99.2 Anemia D64.9 Anemia type: unspecified type Hypocalcemia E83.51 Fluid overload E87.70 Hypervolemia type: unspecified Pneumonia due to COVID-19 virus U07.1; J12.82 (1) Anemia Anemia type: unspecified type Qualified Code(s): D64.9 - Anemia, unspecified (2) Fluid overload Hypervolemia type: unspecified Qualified Code(s): E87.70 - Fluid overload, unspecified
[2020-04-15] MEDS ORDERED: POTASSIUM CHLORIDE CRTAB 20 MEQ TABCR PO STA (17:03)
[2020-04-15] MEDS ORDERED: PHARMACY GLYCEMIC MGMT CONSULT PRN (17:13)
[2020-04-15] MEDS ORDERED: INSULIN HUMAN REGULAR PER UNIT 10 UNITS in SYRINGE 9.9 ML IV ONE (17:15)
--- NOTE | 2020-04-15 17:46 | Hospitalist Progress Note ---
Date of Service April 15, 2020 Assessment & Plan (1) ESRD needing dialysis: Presented with a creatinine of 16, BUN 125 with severe volume overload and respiratory failure as well as hypertensive urgency With a history of CKD stage IV-V in the past and no ongoing medical care for the last year due to having no insurance Had temporary dialysis catheter placed on 04/09 by telecommunications cable jointer Has received hemodialysis on 04/09, and 04/10, 04/11, and 04/12-tolerated well except was having some nausea and vomiting initially which is now resolved Electrolytes are all much improved, remains hypertensive but much improved, volume overload also much improved but persists with 2+ pitting edema of lower extremities and abdominal distention -Hypoxia resolved and pulmonary edema much improved on examination Presented with metabolic acidosis, hypocalcemia, and severe anemia as below. All now improving Appreciate nephrology consultation PermCath placement pushed back till Thursday with vascular surgery -will continue on HD 3 times a week starting Thursday- has outpatient referrals to set up outpatient hemodialysis -needs to be NPO after midnight on Thursday for surgery Thursday Follow renal panel in the morning along with CBC Due to hypocalcemia, nephrology changed sevelamer to PhosLo instead -Started Nephrocaps, receiving IV iron x5 doses and Epogen x1 -Started calcitriol 0.5 mcg once daily -Renally dose medications for GFR less than 10 -Temporary dialysis catheter was removed on 04/15 in preparation for tunneled dialysis catheter on 04/16 -Renal diet, fluid restrict to 1500 mL/day (2) Pneumonia due to COVID-19 virus: Pneumonia due to COVID-19 virus with hypoxia-initially required BiPAP and is now weaned to room air on 04/14 after volume removal with IV Lasix as well as hemodialysis and starting dexamethasone Continue dexamethasone 6 mg IV every morning x10-day course-last dose will be 04/17/2020-if has persistent severe hyperglycemia, may discontinue early He still has a mild cough at times but is improving. Remains afebrile. With leukocytosis secondary to steroid use at this point Continue Duonebs every 4 hours while awake and every 2 hours when necessary. Procalcitonin was elevated at 1.1 so may be secondary bacterial involvement- repeat procalcitonin on 04/15 remains elevated but may be due to renal failure. Clinically improved and can discontinue antibiotics Completed a 5-day course of azithromycin Completed Zosyn x7-day course-last dose on 04/15 Follow chest x-ray to resolution as an outpatient -Continue guaifenesin DM as needed for cough (3) Hypoxia: With acute respiratory failure with hypoxia See above, secondary to volume overload from renal failure as well as Covid-19 pneumonia Resolved (4) Hypokalemia: Potassium down to 3.1 today in the setting of increasing amounts of insulin use for hyperglycemia We will cautiously replace with 20 mEq of KCl in the setting of ESRD Check stat BMP this afternoon as giving IV insulin for glucose greater than 400 Follow BMP, magnesium in the morning (5) Diabetes mellitus with hyperglycemia: Hold glimepiride from home and would not restart in the setting of ESRD Blood sugars were better controlled but now with significantly worsening hyperglycemia now that he is eating more and on dexamethasone, persists despite adding Lantus Continue Accu-Cheks before meals and at bedtime with NovoLog coverage per scale Hemoglobin A1c 5.4% but is likely inaccurate in the setting of severe anemia and renal failure Glucose now 400 on the afternoon of 04/15-give regular insulin 10 units IV x1, potassium chloride 20 mill equivalents p.o. x1 as above, and consult pharmacy glycemic management-discussed care with pharmacist Continue basal and bolus insulin -Consider discontinuing dexamethasone if this persists (6) Anemia: Hemoglobin remained at 7.2 despite 1 unit PRBCs on 04/09, but is now up to 9-10 and stable after 2 more units of PRBCs on 04/10 and IV iron as well as Epogen No gross bleeding from anywhere. Most likely secondary to anemia of chronic kidney disease Transferrin saturation 20% B12 is normal, folate low normal at 6 Nephrology ordered 5 doses of IV Venofer Continue p.o. ferrous sulfate Hemoccult stool pending/not collected Started Nephrocaps with folate Follow CBC in the morning (7) Hypocalcemia: Calcium level severely low at 5.5 on admission here but now normal after several days of correction with IV calcium gluconate Changed sevelamer to PhosLo which has calcium in it This is secondary to severe renal failure Follow calcium and albumin levels in the morning (8) Nausea & vomiting: As above, likely secondary to BPPV as well as uremia and Covid-19 Now resolved, lauryn reg diet (9) Ileus: With mild abdominal distention here and nausea/vomiting which is now resolved Abdominal distention is now improved, moving his bowels Likely secondary to uremia Now lauryn reg diet (10) Elevated troponin I level: Troponin mildly elevated at 0.06/0.112 Repeat is minimally elevated over initial He has no chest pain, ECG was without ischemic changes Most likely myocardial demand ischemia in the setting of renal failure and Co vid-19 with profound hypoxia Cannot get echo and less urgent as he is a Covid patient and I do not feel this is urgent (11) Hypoalbuminemia: Albumin is stable at 1.9 Secondary to acute illness and poor nutrition He was given IV albumin initially upon admission (12) Homelessness: He mostly lives out of his truck but does sleep at his sister's house although he reports his sister officially evicted him today while he was in the hospital Case management is involved and he has been given information on emergency housing after discharge (13) Hypomagnesemia: Replaced Resolved (14) GERD (gastroesophageal reflux disease): No acute issues Continue home Protonix (15) Hypertension: Blood pressures were quite elevated secondary to renal failure and volume overload--> NOW much improved Continue amlodipine, IV hydralazine as needed -continue increased dose of amlodipine to 10 mg -Continue hemodialysis scheduled Thursday (16) Elevated alkaline phosphatase level: Alkaline phosphatase is elevated at 232 but is down from 400 previously This is likely secondary to renal osteodystrophy, plus may have some fatty liver Started calcitriol, phosphate binders Follow LFTs (17) Vertigo: With intermittent vertigo causing nausea and vomiting which comes on with changes in position. He reports this is a chronic issue May be worsened by volume overload Now resolved, received 1 dose of IV Benadryl and stopped Nitropaste -Continue IV Benadryl as needed for nausea and vertigo-has not needed any in many days Would avoid benzodiazepines given severe renal failure Antiemetics with Zofran as needed (18) DVT prophylaxis: Heparin SQ Disposition-continued stay on PCU, slowly improving, expect discharge possibly to rehab on Thursday after perm cath placement and HD on Thursday. Case management is following. Admission and Anticipated Discharge Date Admission Date: April 09, 2020 Subjective Patient feeling well today. Has no complaints. He is eating and drinking and moving his bowels, known nausea. Denies chest pain or shortness of breath and is weaned off oxygen to room air. His blood sugars have spiked up to 400 this afternoon as he is eating more and on steroids. Telemetry with normal sinus rhythm, rates in the 70s to 80s with a brief burst of atrial tachycardia Review of Systems Review of Systems: All systems reviewed & are unremarkable except as noted in HPI & below Still with leg swelling Was ambulating around the room without dyspnea or weakness Physical Exam Constitutional: WD/WN, vitals as above + obese; no acute distress Eyes: + anicteric sclerae ENMT: Ears: no hearing impairment Nose: no external nose abnormality Neck: trachea midline, no thyromegaly Respiratory: normal respiratory effort Auscultation: + rhonchi (A few scattered bibasilar); no crackles and no wheezes Cardiovascular: Rate/Rhythm: regular rate and regular rhythm Heart Sounds: no murmur Extremities: + edema (2+ pitting edema of the legs bilaterally to the knees); no vascular access device (Right IJ site removed and dressing clean and dry, no hematoma) Chest (Breasts): Chest: normal inspection of chest Gastrointestinal (Abdomen): normal bowel sounds, soft, nontender, no hepatosplenomegaly Inspection/Auscultation: + abdomen distended (Mild) Musculoskeletal: Extremities: + hand abnormality Right (Missing third finger middle and distal phalanges); no cyanosis and no clubbing Skin: no rashes, warm and dry Neurologic: moves all extremities and awake; no focal motor deficits and not confused Psychiatric: A+Ox3, euthymic affect Genitourinary: [place] catheter in place Results & Data Results & Data ([facility]) Vital Signs (Past 12 Hours) Vital Signs Temp Pulse Pulse Resp BP BP Pulse Ox 04/15/20 16:42 85 156/91 H 04/15/20 16:30 83 152/84 H 04/15/20 16:15 87 158/76 H 04/15/20 16:04 83 04/15/20 16:00 83 165/78 H 04/15/20 15:52 88 18 148/78 H 98 04/15/20 15:05 36.6 C 105 H 20 146/86 H 95 04/15/20 10:53 36.7 C 89 20 172/79 H 93 04/15/20 08:00 103 H 04/15/20 07:17 37.2 C 96 H 20 169/86 H 92 Laboratory Results 04/15/20 04/15/20 04/15/20 Range/Units 17:26 16:45 16:44 WBC (4.8-10.8) K/uL RBC (4.7-6.1) M/uL Hgb (14.0-18.0) g/dL Hct (42-52) % MCV (80-100) fL MCH (25-34) pg MCHC (32-36) g/dL RDW Std Deviation (36.4-46.3) fL RDW Coeff of Inderjit (11.5-14.5) % Plt Count (130-400) K/uL MPV (7.4-10.4) fL Absolute Nucleated RBC (0-0) K/uL Nucleated RBC % (auto) % Sodium Pending (136-145) mmol/L Potassium Pending (3.5-5.1) mmol/L Chloride Pending (98-107) mmol/L Carbon Dioxide Pending (21-32) mmol/L Anion Gap Pending (3-11) BUN Pending (7-18) mg/dl Creatinine Pending (0.6-1.4) mg/dl Est Cr Clr Drug Dosing Pending ml/min Est GFR ( Amer) Pending Est GFR (Non-Af Amer) Pending BUN/Creatinine Ratio Pending (10-20) Glucose Pending (70-99) mg/dl POC Glucose 381 H* 409 H* (70-99) mg/dl Calcium Pending (8.5-10.1) mg/dl Phosphorus (2.5-4.9) mg/dl Albumin (3.4-5.0) gm/dl Procalcitonin (0-0.5) ng/ml 04/15/20 04/15/20 04/15/20 Range/Units 11:17 07:29 05:34 WBC (4.8-10.8) K/uL RBC (4.7-6.1) M/uL Hgb (14.0-18.0) g/dL Hct (42-52) % MCV (80-100) fL MCH (25-34) pg MCHC (32-36) g/dL RDW Std Deviation (36.4-46.3) fL RDW Coeff of Inderjit (11.5-14.5) % Plt Count (130-400) K/uL MPV (7.4-10.4) fL Absolute Nucleated RBC (0-0) K/uL Nucleated RBC % (auto) % Sodium (136-145) mmol/L Potassium (3.5-5.1) mmol/L Chloride (98-107) mmol/L Carbon Dioxide (21-32) mmol/L Anion Gap (3-11) BUN (7-18) mg/dl Creatinine (0.6-1.4) mg/dl Est Cr Clr Drug Dosing ml/min Est GFR ( Amer) Est GFR (Non-Af Amer) BUN/Creatinine Ratio (10-20) Glucose (70-99) mg/dl POC Glucose 192 H 145 H (70-99) mg/dl Calcium (8.5-10.1) mg/dl Phosphorus (2.5-4.9) mg/dl Albumin (3.4-5.0) gm/dl Procalcitonin 1.92 H (0-0.5) ng/ml 04/15/20 04/15/20 04/14/20 Range/Units 05:34 05:34 20:39 WBC 13.21 H (4.8-10.8) K/uL RBC 3.47 L (4.7-6.1) M/uL Hgb 9.9 L (14.0-18.0) g/dL Hct 29.4 L (42-52) % MCV 84.7 (80-100) fL MCH 28.5 (25-34) pg MCHC 33.7 (32-36) g/dL RDW Std Deviation 44.3 (36.4-46.3) fL RDW Coeff of Inderjit 14.4 (11.5-14.5) % Plt Count 213 (130-400) K/uL MPV 10.7 H (7.4-10.4) fL Absolute Nucleated RBC 0.05 H (0-0) K/uL Nucleated RBC % (auto) 0.4 % Sodium 133 L (136-145) mmol/L Potassium 3.1 L (3.5-5.1) mmol/L Chloride 94 L (98-107) mmol/L Carbon Dioxide 25 (21-32) mmol/L Anion Gap 14.0 H (3-11) BUN 49 H (7-18) mg/dl Creatinine 7.05 H* D (0.6-1.4) mg/dl Est Cr Clr Drug Dosing 12.9 ml/min Est GFR ( Amer) 8.8 Est GFR (Non-Af Amer) 7.6 BUN/Creatinine Ratio 7.0 L (10-20) Glucose 139 H (70-99) mg/dl POC Glucose 187 H (70-99) mg/dl Calcium 7.2 L (8.5-10.1) mg/dl Phosphorus 3.0 (2.5-4.9) mg/dl Albumin 1.8 L (3.4-5.0) gm/dl Procalcitonin (0-0.5) ng/ml PG Care Time/CCT Total # of Minutes Spent Total Time Spent with Patient: Total time spent is greater than 50% in coordination of care (as documented) at patient's floor/unit and/or counseling patient: Coding Level of Care Code 99753 Subseq Hosp Care Lvl 3 Diagnoses ESRD needing dialysis N18.6; Z99.2 Pneumonia due to COVID-19 virus U07.1; J12.82 Hypoxia R09.02 Hypokalemia E87.6 Diabetes mellitus with hyperglycemia E11.65 Anemia D64.9 Anemia type: unspecified type Hypocalcemia E83.51 Nausea & vomiting R11.2 Ileus K56.7 Elevated troponin I level R77.8 Hypoalbuminemia E88.09 Homelessness Z59.0 Hypomagnesemia E83.42 GERD (gastroesophageal reflux disease) K21.9 Hypertension I10 Elevated alkaline phosphatase level R74.8 Vertigo R42 DVT prophylaxis Z29.9 (1) Anemia Anemia type: unspecified type Qualified Code(s): D64.9 - Anemia, unspecified
[2020-04-15 18:11] LABS: BUN Creatinine Ratio 7.5 (10-20); Calcium 7.2 mg/dl (8.5-10.1); Creatinine Clr Calc Pharmacy 11.7 ml/min; Est GFR (African American) 7.8; Est GFR (Non-African American) 6.7; Potassium 3.3 mmol/L (3.5-5.1)
[2020-04-15 18:22] LABS: Beta-Hydroxybutyrate 0.99 mg/dl (0.2-2.81)
[2020-04-15] MEDS: INSULIN GLARGINE SOLOSTAR 100 UNITS/ML 3 ML PEN SC SCH (20:51)
[2020-04-16] MEDS ORDERED: INSULIN ASPART 100 UNITS/ML 3 ML PEN SC SCH ×2
[2020-04-16] MEDS: INSULIN ASPART 100 UNITS/ML 3 ML PEN SC SCH ×6 (00:06→21:18)
[2020-04-16] MEDS: hydrALAZINE HCL 20 MG/ML VIAL IV PRN (00:13)
[2020-04-16] MEDS: PIPERACILLIN/TAZOBACTAM 4.5 GM in DEXTROSE 5% 100 ML IV SCH (02:23)
[2020-04-16] MEDS: HEPARIN SOD 5,000 UNIT/0.5 ML VIAL SQ SCH ×3 (05:01→21:15)
[2020-04-16 06:26] LABS: Hematocrit (blood only) 30.5 % (42-52); Hemoglobin 10.4 g/dL (14.0-18.0); Mean Corpuscular Hemoglobin 28.3 pg (25-34); Mean Corpuscular Hgb Conc 34.1 g/dL (32-36); Mean Corpuscular Volume 83.1 fL (80-100); Mean Platelet Volume 10.1 fL (7.4-10.4); Nucleated RBC # (auto) 0.03 K/uL (0-0); Nucleated RBC % (auto) 0.2 %; Platelet Count 225 K/uL (130-400); RDW Coefficient of Variation 14.5 % (11.5-14.5); RDW Standard Deviation 43.4 fL (36.4-46.3); Red Blood Count 3.67 M/uL (4.7-6.1); White Blood Count 14.94 K/uL (4.8-10.8)
[2020-04-16 07:01] LABS: Basophils # (auto) 0.02 K/uL (0-0.2); Basophils % (auto) 0.1 %; Eosinophils # (auto) 0.23 K/uL (0-0.5); Eosinophils % (auto) 1.5 %; Immature Granulocytes # (auto) 0.78 K/uL (0.00-0.02); Immature Granulocytes % (auto) 5.2 %; Lymphocytes # (auto) 1.06 K/uL (1.2-3.4); Lymphocytes % (auto) 7.1 %; Monocytes # (auto) 1.29 K/uL (0.11-0.59); Monocytes % (auto) 8.6 %; Neutrophils # (auto) 11.56 K/uL (1.4-6.5); Neutrophils % (auto) 77.5 %
[2020-04-16 07:16] LABS: Albumin Globulin Ratio 0.5 (0.9-2); Albumin Level 1.7 gm/dl (3.4-5.0); BUN Creatinine Ratio 7.7 (10-20); Bilirubin,Total 0.6 mg/dl (0.2-1); Calcium 7.1 mg/dl (8.5-10.1); Globulin 3.6 gm/dl (2.5-4.0); Magnesium 1.9 mg/dl (1.8-2.4); Potassium 3.1 mmol/L (3.5-5.1); Total Protein 5.3 gm/dl (6.4-8.2)
--- NOTE | 2020-04-16 08:15 | Consultation ---
Date of Consultation April 16, 2020 Assessment & Plan (1) ESRD (end stage renal disease) on dialysis: Insertion of a PermCath was recommended. I have discussed the risks options and benefits of the procedure with the patient. The patient understands the risks options and benefits and agrees to the procedure. History of Present Illness Reason for Consultation: Acute kidney injury Attending Physician: Luther Orpoeza DO History of Present Illness This is a 64-year-old male who was developed acute kidney injury. He has been admitted with pneumonia and positive Covid. He was placed on dialysis using a temporary catheter. He now needs a PermCath inserted for long-term dialysis at the time of discharge. Allergies Allergy/AdvReac Type Severity Reaction Status Date / Time atorvastatin [From Lipitor] Allergy Unknown Verified 04/09/20 01:01 simvastatin [From Zocor] Allergy Unknown Verified 04/09/20 01:01 codeine AdvReac Intermediate Nausea Unverified 04/09/20 01:01 Home Medications Medication Instructions Recorded Confirmed Type rosuvastatin 10 mg tablet 10 mg PO DAILY #30 tab 11/03/18 Rx glimepiride 2 mg tablet 2 mg PO QAM #30 tab 06/03/19 Rx lisinopril 5 mg tablet 5 mg PO DAILY #30 tab 06/03/19 Rx allopurinol 100 mg tablet 100 mg PO DAILY #30 tab 06/06/19 Rx ferrous sulfate 325 mg (65 mg 325 mg PO UD tab 06/13/19 04/09/20 History iron) tablet pantoprazole 40 mg tablet,delayed 40 mg PO tab 06/13/19 06/13/19 History release Patient History Medical History LINDSEY (acute kidney injury) Anemia Diabetes mellitus with hyperglycemia Elevated alkaline phosphatase level ESRD needing dialysis GERD (gastroesophageal reflux disease) Hypertension Vertigo Surgical History History of appendectomy History of incision and drainage Family History Mother Cancer Denies family history of Ovarian cancer Prostate cancer Myocardial infarction Breast cancer Colorectal cancer Social History Smoking Status: Never smoker Second Hand Exposure: Yes; Do You Dip or Chew Tobacco: No; Tobacco Cessation Education Requested by Patient: No Hx Alcohol Use: No Hx Substance Use: No Preferred Language: Citizen Of [place] Communication Ability: Effective Brush Filler Hand Required: No Beliefs That Will Affect Care: None marital status: single Current Living Situation: Family current occupational status: employed Other Information That Helps Us Care for You: No Feels Safe at Home: Yes Safety Concerns: Feels Safe At This Time Assistive Devices: None and Denture - Lower Review of Systems Review of Systems: All systems reviewed & are unremarkable except as noted in HPI & below Physical Exam Constitutional: well developed and well nourished Respiratory: normal respiratory effort Auscultation: + rhonchi Gastrointestinal (Abdomen): Inspection/Auscultation: abdomen normal to inspection Percussion/Palpation: abdomen soft; abdomen nontender Neurologic: CN's II-XI intact bilaterally, normal sensation to monofilament and moves all extremities Psychiatric: Orientation: alert and oriented x 3 Results & Data ([facility]) Vital Signs (Past 12 Hours) Vital Signs Temp Pulse Pulse Pulse Resp BP Pulse Ox 04/16/20 07:30 36.5 C 96 H 18 166/92 H 95 04/16/20 04:12 36.5 C 105 H 20 135/79 95 04/15/20 23:58 36.8 C 92 H 94 H 20 174/84 H 96 04/15/20 21:00 Pulse Ox 04/16/20 07:30 04/16/20 04:12 04/15/20 23:58 04/15/20 21:00 97
[2020-04-16] MEDS: CALCITRIOL 0.25 MCG CAPSULE PO SCH (08:52)
[2020-04-16] MEDS: ROSUVASTATIN CALCIUM 10 MG TAB PO SCH (08:52)
[2020-04-16] MEDS: NEPHROCAPS PO SCH (08:52)
[2020-04-16] MEDS: dexAMETHasone 6 MG in SYRINGE 0 ML IV SCH (08:52)
[2020-04-16] MEDS: allopurinoL 100 MG TAB PO SCH (08:52)
[2020-04-16] MEDS: PANTOprazole 40 MG TAB PO SCH (08:52)
[2020-04-16] MEDS: FERROUS SULFATE 325 MG TAB PO SCH (08:52)
[2020-04-16] MEDS: amLODIPine BESYLATE 5 MG TAB PO SCH (08:52)
[2020-04-16] MEDS: CALCIUM ACETATE 667 MG CAP/TAB PO SCH ×3 (08:52→18:14)
[2020-04-16] MEDS ORDERED: LIDOCAINE HCL 1% 20 ML VIAL ONE (09:27)
[2020-04-16] MEDS ORDERED: HEPARIN SOD (PORCINE) 5,000 UNITS/ML VIAL ONE (09:28)
[2020-04-16] MEDS ORDERED: MIDAZOLAM HCL 1 MG/ML 2ML VIAL ONE (09:30)
[2020-04-16] MEDS ORDERED: fentaNYL citrate 100 MCG/2 ML VIAL ONE (09:30)
--- NOTE | 2020-04-16 09:34 | Nephrology Progress Note ---
Date of Service April 16, 2020 Assessment & Plan (1) ESRD needing dialysis: Orders for HD today entered into EMR and reviewed with HD nurse. 3.5 hrs, 4 K bath for low potassium, 2-3 L UF (as tolerated). Started on hemodialysis on 04/09/[address] catheter[address]. Mayo to place permcath this AM. Due to COVID+, isolation precautions in place for 14 days post +test. This would require HD at isolation unit in [facility] if discharged prior. Otherwise, Librado plans to start HD at [facility] post discharge. Medications are appropriately dosed for kidney function. (2) Anemia: s/p PRBC transfusion support x 3 u. Venofer 200 mg IV x 5 doses completed. Epogen 75528 units given on 04/10/20. Additional Epogen 4000 units today. (3) Hypocalcemia: CKD/MBD with sPTH. Calcium acetate QAC for hyperphos. Calcitriol 0.5 QAM. (4) Fluid overload: Improving with HD. Low sodium diet and fluid restriction <1.5 L/d. (5) Pneumonia due to COVID-19 virus: Discharge planning considerations discussed with primary team. Admission and Anticipated Discharge Date Admission Date: April 09, 2020 Subjective No acute events overnight. Librado was taken to OR this AM for permcath placement. Patient was not personally seen this AM due to COVID pandemic. Review of Systems Review of Systems: All systems reviewed & are unremarkable except as noted in HPI & below Physical Exam Physical Exam: Deferred due to COVID. Results & Data ([facility]) Vital Signs (Past 12 Hours) Vital Signs Temp Pulse Pulse Pulse Pulse Resp BP 04/16/20 08:00 110 H 04/16/20 07:30 36.5 C 96 H 18 166/92 H 04/16/20 04:12 36.5 C 105 H 20 135/79 04/15/20 23:58 36.8 C 92 H 94 H 20 174/84 H Pulse Ox 04/16/20 08:00 04/16/20 07:30 95 04/16/20 04:12 95 04/15/20 23:58 96 Laboratory Results Laboratory Results - last 24 hr 04/15/20 04/15/20 04/15/20 11:17 16:44 16:45 WBC RBC Hgb Hct MCV MCH MCHC RDW Std Deviation RDW Coeff of Inderjit Plt Count MPV Immature Gran % (Auto) Neut % (Auto) Lymph % (Auto) [place] % (Auto) Eos % (Auto) Baso % (Auto) Neut # (Auto) Lymph # (Auto) [place] # (Auto) Eos # (Auto) Baso # (Auto) Immature Gran # (Auto) Absolute Nucleated RBC Nucleated RBC % (auto) Sodium Potassium Chloride Carbon Dioxide Anion Gap BUN Creatinine Est Cr Clr Drug Dosing Est GFR ( Amer) Est GFR (Non-Af Amer) BUN/Creatinine Ratio Glucose POC Glucose 192 H 409 H* 381 H* Calcium Magnesium Total Bilirubin AST ALT Alkaline Phosphatase Total Protein Albumin Globulin Albumin/Globulin Ratio Beta-Hydroxybutyric Acd 04/15/20 04/15/20 04/15/20 17:26 20:11 23:57 WBC RBC Hgb Hct MCV MCH MCHC RDW Std Deviation RDW Coeff of Inderjit Plt Count MPV Immature Gran % (Auto) Neut % (Auto) Lymph % (Auto) [place] % (Auto) Eos % (Auto) Baso % (Auto) Neut # (Auto) Lymph # (Auto) [place] # (Auto) Eos # (Auto) Baso # (Auto) Immature Gran # (Auto) Absolute Nucleated RBC Nucleated RBC % (auto) Sodium 129 L Potassium 3.3 L Chloride 92 L Carbon Dioxide 23 Anion Gap 14.0 H BUN 59 H Creatinine 7.81 H* D Est Cr Clr Drug Dosing 11.7 Est GFR ( Amer) 7.8 Est GFR (Non-Af Amer) 6.7 BUN/Creatinine Ratio 7.5 L Glucose 341 H* POC Glucose 244 H 160 H Calcium 7.2 L Magnesium Total Bilirubin AST ALT Alkaline Phosphatase Total Protein Albumin Globulin Albumin/Globulin Ratio Beta-Hydroxybutyric Acd 0.99 04/16/20 04/16/20 04/16/20 04:12 05:33 05:33 WBC 14.94 H RBC 3.67 L Hgb 10.4 L Hct 30.5 L MCV 83.1 MCH 28.3 MCHC 34.1 RDW Std Deviation 43.4 RDW Coeff of Inderjit 14.5 Plt Count 225 MPV 10.1 Immature Gran % (Auto) 5.2 Neut % (Auto) 77.5 Lymph % (Auto) 7.1 [place] % (Auto) 8.6 Eos % (Auto) 1.5 Baso % (Auto) 0.1 Neut # (Auto) 11.56 H Lymph # (Auto) 1.06 L [place] # (Auto) 1.29 H Eos # (Auto) 0.23 Baso # (Auto) 0.02 Immature Gran # (Auto) 0.78 H Absolute Nucleated RBC 0.03 H Nucleated RBC % (auto) 0.2 Sodium 132 L Potassium 3.1 L Chloride 95 L Carbon Dioxide 21 Anion Gap 15.0 H BUN 66 H Creatinine 8.53 H* D Est Cr Clr Drug Dosing 11.0 Est GFR ( Amer) 7.0 Est GFR (Non-Af Amer) 6.0 BUN/Creatinine Ratio 7.7 L Glucose 106 H POC Glucose 126 H Calcium 7.1 L Magnesium 1.9 Total Bilirubin 0.6 AST 42 H ALT 56 Alkaline Phosphatase 292 H Total Protein 5.3 L Albumin 1.7 L Globulin 3.6 Albumin/Globulin Ratio 0.5 L Beta-Hydroxybutyric Acd 04/16/20 07:32 WBC RBC Hgb Hct MCV MCH MCHC RDW Std Deviation RDW Coeff of Inderjit Plt Count MPV Immature Gran % (Auto) Neut % (Auto) Lymph % (Auto) [place] % (Auto) Eos % (Auto) Baso % (Auto) Neut # (Auto) Lymph # (Auto) [place] # (Auto) Eos # (Auto) Baso # (Auto) Immature Gran # (Auto) Absolute Nucleated RBC Nucleated RBC % (auto) Sodium Potassium Chloride Carbon Dioxide Anion Gap BUN Creatinine Est Cr Clr Drug Dosing Est GFR ( Amer) Est GFR (Non-Af Amer) BUN/Creatinine Ratio Glucose POC Glucose 98 Calcium Magnesium Total Bilirubin AST ALT Alkaline Phosphatase Total Protein Albumin Globulin Albumin/Globulin Ratio Beta-Hydroxybutyric Acd PG Care Time/CCT Total # of Minutes Spent Total Time Spent with Patient: Total time spent is greater than 50% in coordination of care (as documented) at patient's floor/unit and/or counseling patient: Coding Level of Care Code 77623 Subseq Hosp Care Lvl 3 Diagnoses ESRD needing dialysis N18.6; Z99.2 Anemia D64.9 Anemia type: unspecified type Hypocalcemia E83.51 Fluid overload E87.70 Hypervolemia type: unspecified Pneumonia due to COVID-19 virus U07.1; J12.82 (1) Anemia Anemia type: unspecified type Qualified Code(s): D64.9 - Anemia, unspecified (2) Fluid overload Hypervolemia type: unspecified Qualified Code(s): E87.70 - Fluid overload, unspecified
[2020-04-16] MEDS ORDERED: EPOETIN ALFA 4,000 UNIT/ML VIAL IV ONE (10:00)
--- NOTE | 2020-04-16 10:28 | Pre Anesthesia Assessment ---
Date of Service April 16, 2020 Pre Sedation Assessment Vital Signs Temp Pulse Pulse Pulse Pulse Resp BP 04/16/20 10:23 90 14 04/16/20 10:18 81 14 04/16/20 10:13 95 H 14 04/16/20 10:07 97 H 14 04/16/20 08:00 110 H 04/16/20 07:30 36.5 C 96 H 18 04/16/20 04:12 36.5 C 105 H 20 04/15/20 23:58 36.8 C 92 H 94 H 20 04/15/20 21:00 04/15/20 19:17 36.8 C 87 22 04/15/20 16:42 85 156/91 H 04/15/20 16:30 83 152/84 H 04/15/20 16:15 87 158/76 H 04/15/20 16:04 83 04/15/20 16:00 83 165/78 H 04/15/20 15:52 88 18 04/15/20 15:05 36.6 C 105 H 20 146/86 H 04/15/20 10:53 36.7 C 89 20 172/79 H BP Pulse Ox Pulse Ox 04/16/20 10:23 135/78 100 04/16/20 10:18 152/88 H 100 04/16/20 10:13 162/74 H 100 04/16/20 10:07 165/92 H 99 04/16/20 08:00 04/16/20 07:30 166/92 H 95 04/16/20 04:12 135/79 95 04/15/20 23:58 174/84 H 96 04/15/20 21:00 97 04/15/20 19:17 172/86 H 94 04/15/20 16:42 04/15/20 16:30 04/15/20 16:15 04/15/20 16:04 04/15/20 16:00 04/15/20 15:52 148/78 H 98 04/15/20 15:05 95 04/15/20 10:53 93 Cardiovascular RRR, no murmur, no edema Respiratory normal respiratory effort, lungs clear to auscultation Pre-Sedation Airway Assessment Smoking Status: Never smoker Hx Sleep Apnea: No Short, Thick Neck: No Thyromental Distance: > or= 3.5 Finger Breadths Oral Cavity: + WNL Mallampati Class: II ASA: ASA3 NPO Status Date of Last Intake of Fluids: 04/15/20 Time of Last Intake of Fluids: 07:00 Date of Last Intake of Solid Food: 04/15/20 Time of Last Intake of Solid Foods: 18:00 Procedure Planning Contraindications for Sedation: none Current Medications Reviewed: Yes Notes The planned sedation has been discussed with the patient. Informed Consent was obtained. I have identified the patient, determined the appropriateness of sedation and have assessed the patient immediately prior to the procedure. All medicine(s) and interventions are by my order.
--- NOTE | 2020-04-16 10:35 | Post Anesthesia Assessment ---
Date of Service April 16, 2020 Post Sedation Assessment Vital Signs Temp Pulse Pulse Pulse Pulse Resp BP 04/16/20 10:32 98 H 15 04/16/20 10:27 92 H 14 04/16/20 10:23 90 14 04/16/20 10:18 81 14 04/16/20 10:13 95 H 14 04/16/20 10:07 97 H 14 04/16/20 08:00 110 H 04/16/20 07:30 36.5 C 96 H 18 04/16/20 04:12 36.5 C 105 H 20 04/15/20 23:58 36.8 C 92 H 94 H 20 04/15/20 21:00 04/15/20 19:17 36.8 C 87 22 04/15/20 16:42 85 156/91 H 04/15/20 16:30 83 152/84 H 04/15/20 16:15 87 158/76 H 04/15/20 16:04 83 04/15/20 16:00 83 165/78 H 04/15/20 15:52 88 18 04/15/20 15:05 36.6 C 105 H 20 146/86 H 04/15/20 10:53 36.7 C 89 20 172/79 H BP Pulse Ox Pulse Ox 04/16/20 10:32 152/90 H 94 04/16/20 10:27 159/92 H 95 04/16/20 10:23 135/78 100 04/16/20 10:18 152/88 H 100 04/16/20 10:13 162/74 H 100 04/16/20 10:07 165/92 H 99 04/16/20 08:00 04/16/20 07:30 166/92 H 95 04/16/20 04:12 135/79 95 04/15/20 23:58 174/84 H 96 04/15/20 21:00 97 04/15/20 19:17 172/86 H 94 04/15/20 16:42 04/15/20 16:30 04/15/20 16:15 04/15/20 16:04 04/15/20 16:00 04/15/20 15:52 148/78 H 98 04/15/20 15:05 95 04/15/20 10:53 93 Recovery Score Activity: Moves 4 extremities Respiration: Deep Breath/Cough Circulation: +/-20% PreAnes Value Consciousness: Fully Awake Oxygen Saturation: > 92% On Room Air Post Anesthesia Score: 10 Discharge Sedation Level of Care: Fast Track Phase II Post Sedation Plan On clinical assessment, the patient appears to have tolerated the sedation without complications. Patient is recovering as anticipated. Patient will continue to be monitored by nursing and may be discharged when sedation discharge criteria are met per below protocol. Upon Completions of procedure up to 15 minutes continue every 5 minute vital signs and the P.A.R. score; then discharge to a Phase I or Fast Track to Phase II per the following guidelines: * Discharge Patient to appropriate Phase II area if PAR is 8 or greater or return to pre- procedure baseline. The post - procedure orders will be as directed. * If PAR score is less than 8 or not return to pre-procedure baseline then patie nt will follow Phase I monitoring till PAR is reached for Phase II. The Phase I may be done in procedure room or may call to secure a Phase I area. * If naloxone or flumazenil are used for reversal, hold in Phase I for continued monitoring from when last reversal dose was given for a minimum of 60 minutes or longer pending the nurse and/or physician discretion of patient condition before discharge to Phase II. Please call the Sedation Physician to re-evaluate and complete post-note for discharge to Phase II area. Do NOT discharge from procedure sedation or Phase 1 until post- sedation ev aluation note is complete by procedure /sedation MD Sedation Discharge Instructions to be given to the patient at discharge to home.
--- NOTE | 2020-04-16 10:35 | Operative Report ---
Post Operative Report Pre & Post Diagnosis Operation Date: 04/16/20 09:20 Pre-Op Diagnosis: acute kidney injury Post-Op Diagnosis: acute kidney injury I identified the patient and participated in the time-out.: Yes Procedure Operation Date: 04/16/20 09:20 Actual Procedures p Insertion Of Perm Cathter, Right Internal Jugular Approach, Ultrasound Loca lization Of Right Internal Jugular Vein, Moderate Concious Sedation 1013 to 1032(Right) - Miah Mayo MD Surgeon Miah Mayo MD Wire Threader none Estimated Blood Loss 0 Findings Consistent with Post-Op Diagnosis Specimens none Anesthesia Type RN Sedation Complications none Disposition Accompanied Patient To Recovery: No Disposition: Surgical ICU Indications This is a 64-year-old gentleman who is on dialysis via temporary catheter and was discontinued yesterday. He is still requiring dialysis. PermCath was recommended. I have discussed the risks options and benefits of the procedure with the patient. The patient understands the risks options and benefits and agrees to the procedure. Description of Procedure Patient was taken to the angio suite and placed in the supine position. The right side of the neck and chest wall were prepped and draped in a sterile manner. The patient was identified and a timeout performed. Local anesthesia was then administered to the appropriate areas of the neck and chest wall. Ultrasound was then used to locate the right internal jugular vein. The vein compressed easily, had no filing defects, and was patent. The vein was then punctured under direct ultrasound imaging. A guidewire was then passed centrally under fluoroscopic imaging. A stab wound was then made in the anterior chest wall and a 19 cm permcath was passed from the stab wound on the chest wall to the puncture site on the neck. The puncture site was then dilated till the 14Fr peel away sheath was inserted. The permcath was then inserted through the sheath to a central position in the distal superior vena cava. The peel away sheath was then removed. The catheter was then sutured in place using nylon sutures. The puncture was then closed using a 4-0 Vicryl subcuticular suture. Dermabond was used for a dressing on the puncture site. Both ports aspirated and flushed easily and were then packed with heparin. A sterile dressing was applied to the catheter. The patient left the operation room in satisfactory condition and tolerated the procedure well. All needle and sponge counts were correct at the end of the procedure. I attest to the content of the Intraoperative Record and any orders documented therein. Any exceptions are noted below.
--- NOTE | 2020-04-16 11:57 | Hospitalist Progress Note ---
Date of Service April 16, 2020 Assessment & Plan (1) ESRD needing dialysis: Presented with a creatinine of 16, BUN 125 with severe volume overload and respiratory failure as well as hypertensive urgency With a history of CKD stage IV-V in the past and no ongoing medical care for the last year due to having no insurance Had temporary dialysis catheter placed on 04/09 by pbx inspector Has received hemodialysis on 04/09, and 04/10, 04/11, and 04/12-tolerated well Electrolytes are all much improved, remains hypertensive but much improved, volume overload also much improved but persists with 2+ pitting edema of lower extremities and abdominal distention -Hypoxia resolved and pulmonary edema much improved on examination Presented with metabolic acidosis, hypocalcemia, and severe anemia as below. All now improving Appreciate nephrology consultation PermCath placement today, 04/16 -had HD afterwards, tolerated well Due to hypocalcemia, nephrology changed sevelamer to PhosLo instead -Started Nephrocaps, receiving IV iron x5 doses and Epogen x1 -Started calcitriol 0.5 mcg once daily -Renally dose medications for GFR less than 10 -Renal diet, fluid restrict to 1500 mL/day difficult social situation, he is essentially homeless, need to determine living arrangements prior to outpatient HD (2) Pneumonia due to COVID-19 virus: Pneumonia due to COVID-19 virus with hypoxia-initially required BiPAP and is now weaned to room air on 04/14 after volume removal with IV Lasix as well as hemodialysis and starting dexamethasone Continue dexamethasone 6 mg IV every morning x10-day course-last dose will be 04/17/2020 He still has a mild cough at times but is improving. Remains afebrile. With leukocytosis secondary to steroid use at this point Continue Duonebs every 4 hours while awake and every 2 hours when necessary. Procalcitonin was elevated at 1.1 so may be secondary bacterial involvement- repeat procalcitonin on 04/15 remains elevated but may be due to renal failure. Clinically improved and can discontinue antibiotics Completed a 5-day course of azithromycin Completed Zosyn x7-day course-last dose on 04/15 Follow chest x-ray to resolution as an outpatient -Continue guaifenesin DM as needed for cough (3) Hypoxia: With acute respiratory failure with hypoxia See above, secondary to volume overload from renal failure as well as Covid-19 pneumonia Resolved (4) Hypokalemia: Potassium slightly low will treat with HD with low K bath (5) Diabetes mellitus with hyperglycemia: Hold glimepiride from home and would not restart in the setting of ESRD Blood sugars were better controlled but now with significantly worsening hyperglycemia now that he is eating more and on dexamethasone, persists despite adding Lantus Continue Accu-Cheks before meals and at bedtime with NovoLog coverage per scale Hemoglobin A1c 5.4% but is likely inaccurate in the setting of severe anemia and renal failure Glucose better controlled today (6) Anemia: Hemoglobin remained at 7.2 despite 1 unit PRBCs on 04/09, but is now up to 9-10 and stable after 2 more units of PRBCs on 04/10 and IV iron as well as Epogen No gross bleeding from anywhere. Most likely secondary to anemia of chronic kidney disease Transferrin saturation 20% B12 is normal, folate low normal at 6 Nephrology ordered 5 doses of IV Venofer Continue p.o. ferrous sulfate Hemoccult stool pending/not collected Started Nephrocaps with folate Follow CBC in the morning (7) Hypocalcemia: Calcium level severely low at 5.5 on admission here but now normal after several days of correction with IV calcium gluconate Changed sevelamer to PhosLo which has calcium in it This is secondary to severe renal failure Follow calcium and albumin levels (8) Nausea & vomiting: As above, likely secondary to BPPV as well as uremia and Covid-19 Now resolved, lauryn reg diet (9) Ileus: With mild abdominal distention here and nausea/vomiting which is now resolved Abdominal distention is now improved, moving his bowels Likely secondary to uremia Now lauryn reg diet (10) Elevated troponin I level: Troponin mildly elevated at 0.06/0.112 Repeat is minimally elevated over initial He has no chest pain, ECG was without ischemic changes Most likely myocardial demand ischemia in the setting of renal failure and Covid-19 with profound hypoxia Cannot get echo and less urgent as he is a Covid patient and I do not feel this is urgent (11) Hypoalbuminemia: Secondary to acute illness and poor nutrition He was given IV albumin initially upon admission (12) Homelessness: He mostly lives out of his truck but does sleep at his sister's house although he reports his sister officially evicted him today while he was in the hospital Case management is involved and he has been given information on emergency housing after discharge (13) Hypomagnesemia: Replaced Resolved (14) GERD (gastroesophageal reflux disease): No acute issues Continue home Protonix (15) Hypertension: Blood pressures were quite elevated secondary to renal failure and volume overload--> NOW much improved Continue amlodipine, IV hydralazine as needed -continue increased dose of amlodipine to 10 mg -Continue hemodialysis scheduled Thursday (16) Elevated alkaline phosphatase level: Alkaline phosphatase is elevated at 232 but is down from 400 previously This is likely secondary to renal osteodystrophy, plus may have some fatty liver Started calcitriol, phosphate binders Follow LFTs (17) Vertigo: With intermittent vertigo causing nausea and vomiting which comes on with changes in position. He reports this is a chronic issue May be worsened by volume overload Now resolved, received 1 dose of IV Benadryl and stopped Nitropaste -Continue IV Benadryl as needed for nausea and vertigo-has not needed any in many days Would avoid benzodiazepines given severe renal failure Antiemetics with Zofran as needed (18) DVT prophylaxis: Heparin SQ Disposition-continued stay on PCU, slowly improving, expect discharge possibly to rehab on Thursday after perm cath placement and HD on Thursday. Case management is following. Admission and Anticipated Discharge Date Admission Date: April 09, 2020 Subjective patient feels great, a little drowsy and hungry but otherwise great had permanent HD catheter placed this morning with Dr. Mayo, some oozing from site, no major complications reviewed chart, reviewed labs plan for HD this afternoon, he is planning on eating lunch first d/w infection control, he can be removed from isolation precautions discussed with extension service specialist in charge, will move to medical status patient denies fever/chills, chest pain, dyspnea, GI symptoms very complicated social situation, he is essentially homeless CM working on temporary/emergency housing options but not promising he needs rehab but would need insurance authorization and would need outpatient HD set up anticipate this taking several days to work out Review of Systems Review of Systems: All systems reviewed & are unremarkable except as noted in Subjective Physical Exam Constitutional: WD/WN, vitals as above + overweight Neck: trachea midline, no thyromegaly Respiratory: normal respiratory effort, lungs clear to auscultation Cardiovascular: RRR, no murmur, no edema Gastrointestinal (Abdomen): normal bowel sounds, soft, nontender, no hepatosplenomegaly Musculoskeletal: no cyanosis or clubbing, extremities motor strength 5/5 Skin: no rashes, warm and dry Neurologic: patellar DTR's 2+ bilat, sensation intact and PERRL, EOMI, accommodation nl, no face palsy, no dysarthria Psychiatric: A+Ox3, euthymic affect Lymphatic: no cervical or axillary lymphadenopathy Results & Data Results & Data ([facility]) Vital Signs (Past 12 Hours) Vital Signs Temp Pulse Pulse Pulse Pulse Resp BP 04/16/20 11:45 36.6 C 04/16/20 11:30 87 18 148/76 H 04/16/20 11:15 98 H 18 140/87 04/16/20 10:56 36.6 C 94 H 20 113/74 04/16/20 10:32 98 H 15 04/16/20 10:27 92 H 14 04/16/20 10:23 90 14 04/16/20 10:18 81 14 04/16/20 10:13 95 H 14 04/16/20 10:07 97 H 14 04/16/20 08:00 110 H 04/16/20 07:30 36.5 C 96 H 18 04/16/20 04:12 36.5 C 105 H 20 04/15/20 23:58 36.8 C 92 H 94 H 20 BP Pulse Ox 04/16/20 11:45 04/16/20 11:30 92 04/16/20 11:15 96 04/16/20 10:56 130/82 94 04/16/20 10:32 152/90 H 94 04/16/20 10:27 159/92 H 95 04/16/20 10:23 135/78 100 04/16/20 10:18 152/88 H 100 04/16/20 10:13 162/74 H 100 04/16/20 10:07 165/92 H 99 04/16/20 08:00 04/16/20 07:30 166/92 H 95 04/16/20 04:12 135/79 95 04/15/20 23:58 174/84 H 96 Laboratory Results Laboratory Results - last 24 hr 04/15/20 04/15/20 04/15/20 16:44 16:45 17:26 WBC RBC Hgb Hct MCV MCH MCHC RDW Std Deviation RDW Coeff of Inderjit Plt Count MPV Immature Gran % (Auto) Neut % (Auto) Lymph % (Auto) [place] % (Auto) Eos % (Auto) Baso % (Auto) Neut # (Auto) Lymph # (Auto) [place] # (Auto) Eos # (Auto) Baso # (Auto) Immature Gran # (Auto) Absolute Nucleated RBC Nucleated RBC % (auto) Sodium 129 L Potassium 3.3 L Chloride 92 L Carbon Dioxide 23 Anion Gap 14.0 H BUN 59 H Creatinine 7.81 H* D Est Cr Clr Drug Dosing 11.7 Est GFR ( Amer) 7.8 Est GFR (Non-Af Amer) 6.7 BUN/Creatinine Ratio 7.5 L Glucose 341 H* POC Glucose 409 H* 381 H* Calcium 7.2 L Magnesium Total Bilirubin AST ALT Alkaline Phosphatase Total Protein Albumin Globulin Albumin/Globulin Ratio Beta-Hydroxybutyric Acd 0.99 04/15/20 04/15/20 04/16/20 20:11 23:57 04:12 WBC RBC Hgb Hct MCV MCH MCHC RDW Std Deviation RDW Coeff of Inderjit Plt Count MPV Immature Gran % (Auto) Neut % (Auto) Lymph % (Auto) [place] % (Auto) Eos % (Auto) Baso % (Auto) Neut # (Auto) Lymph # (Auto) [place] # (Auto) Eos # (Auto) Baso # (Auto) Immature Gran # (Auto) Absolute Nucleated RBC Nucleated RBC % (auto) Sodium Potassium Chloride Carbon Dioxide Anion Gap BUN Creatinine Est Cr Clr Drug Dosing Est GFR ( Amer) Est GFR (Non-Af Amer) BUN/Creatinine Ratio Glucose POC Glucose 244 H 160 H 126 H Calcium Magnesium Total Bilirubin AST ALT Alkaline Phosphatase Total Protein Albumin Globulin Albumin/Globulin Ratio Beta-Hydroxybutyric Acd 04/16/20 04/16/20 04/16/20 05:33 05:33 07:32 WBC 14.94 H RBC 3.67 L Hgb 10.4 L Hct 30.5 L MCV 83.1 MCH 28.3 MCHC 34.1 RDW Std Deviation 43.4 RDW Coeff of Inderjit 14.5 Plt Count 225 MPV 10.1 Immature Gran % (Auto) 5.2 Neut % (Auto) 77.5 Lymph % (Auto) 7.1 [place] % (Auto) 8.6 Eos % (Auto) 1.5 Baso % (Auto) 0.1 Neut # (Auto) 11.56 H Lymph # (Auto) 1.06 L [place] # (Auto) 1.29 H Eos # (Auto) 0.23 Baso # (Auto) 0.02 Immature Gran # (Auto) 0.78 H Absolute Nucleated RBC 0.03 H Nucleated RBC % (auto) 0.2 Sodium 132 L Potassium 3.1 L Chloride 95 L Carbon Dioxide 21 Anion Gap 15.0 H BUN 66 H Creatinine 8.53 H* D Est Cr Clr Drug Dosing 11.0 Est GFR ( Amer) 7.0 Est GFR (Non-Af Amer) 6.0 BUN/Creatinine Ratio 7.7 L Glucose 106 H POC Glucose 98 Calcium 7.1 L Magnesium 1.9 Total Bilirubin 0.6 AST 42 H ALT 56 Alkaline Phosphatase 292 H Total Protein 5.3 L Albumin 1.7 L Globulin 3.6 Albumin/Globulin Ratio 0.5 L Beta-Hydroxybutyric Acd 04/16/20 11:35 WBC RBC Hgb Hct MCV MCH MCHC RDW Std Deviation RDW Coeff of Inderjit Plt Count MPV Immature Gran % (Auto) Neut % (Auto) Lymph % (Auto) [place] % (Auto) Eos % (Auto) Baso % (Auto) Neut # (Auto) Lymph # (Auto) [place] # (Auto) Eos # (Auto) Baso # (Auto) Immature Gran # (Auto) Absolute Nucleated RBC Nucleated RBC % (auto) Sodium Potassium Chloride Carbon Dioxide Anion Gap BUN Creatinine Est Cr Clr Drug Dosing Est GFR ( Amer) Est GFR (Non-Af Amer) BUN/Creatinine Ratio Glucose POC Glucose 125 H Calcium Magnesium Total Bilirubin AST ALT Alkaline Phosphatase Total Protein Albumin Globulin Albumin/Globulin Ratio Beta-Hydroxybutyric Acd Medications Administered Current Inpatient Medications Acetaminophen (Acetaminophen 325 Mg Tab) 650 mg PO Q4H PRN PRN Reason: Pain or Fever Stop: 05/09/20 01:57 Albuterol (Albut/Ipratrop 3mg/0.5mg Neb 3 Ml Vial) 3 ml NEB Q4R PRN PRN Reason: Shortness Of Breath Or Wheezing Stop: 05/09/20 08:45 Allopurinol (Allopurinol 100 Mg Tab) 100 mg PO DAILY ELENI Stop: 05/09/20 08:59 Last Admin: 04/16/20 08:52 Dose: 100 mg Documented by: Amlodipine Besylate (Amlodipine Besylate 5 Mg Tab) 10 mg PO QAM ELENI Stop: 05/13/20 08:59 Last Admin: 04/16/20 08:52 Dose: 10 mg Documented by: Calcitriol (Calcitriol 0.25 Mcg Capsule) 0.5 mcg PO QAM ELENI Stop: 05/11/20 08:59 Last Admin: 04/16/20 08:52 Dose: 0.5 mcg Documented by: Calcium Acetate (Calcium Acetate 667 Mg Cap/Tab) 667 mg PO TIDM ELENI Stop: 05/14/20 11:59 Last Admin: 04/16/20 08:52 Dose: 667 mg Documented by: Dextrose (Dextrose 50% 50 Ml Syringe) 25 - 50 ml IV UD PRN; Protocol PRN Reason: Hypoglycemia Protocol Stop: 05/09/20 01:57 Diphenhydramine HCl (Diphenhydramine 50 Mg/Ml Vial) 12.5 mg IV Q6 PRN PRN Reason: nausea,vertigo Stop: 05/11/20 10:42 Last Admin: 04/11/20 11:16 Dose: 12.5 mg Documented by: Ferrous Sulfate (Ferrous Sulfate 325 Mg Tab) 325 mg PO DAILY ELENI Stop: 05/09/20 08:59 Last Admin: 04/16/20 08:52 Dose: 325 mg Documented by: Glucagon (Glucagon For Inj 1 Mg Vial) 1 mg SQ UD PRN; Protocol PRN Reason: Hypoglycemia Protocol Stop: 05/09/20 01:57 Glucose (Glucose 10 Tabs/Tube) 4 - 8 tabs PO UD PRN; Protocol PRN Reason: Hypoglycemia Protocol Stop: 05/09/20 01:57 Glucose (Glucose 40% Gel 15 Gm Tube) 15 - 30 gm PO UD PRN; Protocol PRN Reason: Hypoglycemia Protocol Stop: 05/09/20 01:57 Guaifenesin/Dextromethorphan (Guaifenesin/Dextrom Syrup 100mg/10mg 5ml Udc) 5 ml PO Q6H PRN PRN Reason: Cough Stop: 05/14/20 22:17 Last Admin: 04/15/20 19:51 Dose: 5 ml Documented by: Heparin Sodium (Porcine) (Heparin Sod 5,000 Unit/0.5 Ml Vial) 7,500 units SQ Q8 ELENI Stop: 05/09/20 05:59 Last Admin: 04/16/20 05:01 Dose: 7,500 units Documented by: Hydralazine HCl (Hydralazine Hcl 20 Mg/Ml Vial) 10 mg IV Q4H PRN PRN Reason: Blood Pressure - High Stop: 05/09/20 03:02 Last Admin: 04/16/20 00:13 Dose: 10 mg Documented by: Dexamethasone 6 mg/ Syringe 1.5 mls @ 1 mls/min IV QAM [facility] Stop: 04/18/20 09:02 Last Admin: 04/16/20 08:52 Dose: 1 mls/min Documented by: Piperacillin Sod/Tazobactam (Sod 4.5 gm/ Dextrose) 120 mls @ 30 mls/hr IV Q12H [facility] Stop: 04/16/20 13:59 Last Infusion: 04/16/20 06:25 Dose: Infused Documented by: Insulin Aspart (Insulin Aspart 100 Units/Ml 3 Ml Pen) 0 units SC Q4 [facility] Stop: 05/16/20 00:00 Last Admin: 04/16/20 08:54 Dose: Not Given Documented by: Insulin Glargine (Insulin Glargine Solostar 100 Units/Ml 3 Ml Pen) 10 units SC HS [facility] Stop: 05/13/20 20:59 Last Admin: 04/15/20 20:51 Dose: 10 units Documented by: Magnesium Hydroxide (Magnesium Hydroxide Susp 30 Ml Udc) 30 ml PO Q12H PRN PRN Reason: Constipation Stop: 05/09/20 01:57 Metoprolol Tartrate (Metoprolol Tartrate 1 Mg/Ml Vial) 5 mg IV Q4 PRN PRN Reason: Blood Pressure - High Stop: 05/09/20 03:59 Last Admin: 04/14/20 03:59 Dose: 5 mg Documented by: Miscellaneous (Carbohydrates For Hypoglycemia ) 15 - 30 gm PO UD PRN PRN Reason: Hypoglycemia Protocol Stop: 05/09/20 01:57 Miscellaneous Information (Piperacill/Tazobac Consult Active) 1 ea N/A UD PRN PRN Reason: Consult Stop: 04/16/20 13:59 Miscellaneous Information (Pharmacy Glycemic Mgmt Consult) 1 ea N/A UD PRN PRN Reason: Consult Stop: 05/15/20 17:12 Ondansetron HCl (Ondansetron Inj 2 Mg/Ml 2 Ml Vial) 4 mg IV Q6H PRN PRN Reason: Nausea Stop: 05/09/20 01:57 Last Admin: 04/11/20 09:20 Dose: 4 mg Documented by: Pantoprazole Sodium (Pantoprazole 40 Mg Tab) 40 mg PO DAILY [facility] Stop: 05/09/20 08:59 Last Admin: 04/16/20 08:52 Dose: 40 mg Documented by: Rosuvastatin Calcium (Rosuvastatin Calcium 10 Mg Tab) 10 mg PO DAILY ELENI Stop: 05/09/20 08:59 Last Admin: 04/16/20 08:52 Dose: 10 mg Documented by: Vitamin B Complex/Folic Acid (Nephrocaps) 1 cap PO QAM ELENI Stop: 05/11/20 08:59 Last Admin: 04/16/20 08:52 Dose: 1 cap Documented by: PG Care Time/CCT Total # of Minutes Spent Total Time Spent with Patient: Total time spent is greater than 50% in coordination of care (as documented) at patient's floor/unit and/or counseling patient: Coding Level of Care Code 53340 Subseq Hosp Care Lvl 2 Diagnoses ESRD needing dialysis N18.6; Z99.2 Pneumonia due to COVID-19 virus U07.1; J12.82 Hypoxia R09.02 Hypokalemia E87.6 Diabetes mellitus with hyperglycemia E11.65 Anemia D64.9 Anemia type: unspecified type Hypocalcemia E83.51 Nausea & vomiting R11.2 Ileus K56.7 Elevated troponin I level R77.8 Hypoalbuminemia E88.09 Homelessness Z59.0 Hypomagnesemia E83.42 GERD (gastroesophageal reflux disease) K21.9 Hypertension I10 Elevated alkaline phosphatase level R74.8 Vertigo R42 DVT prophylaxis Z29.9 (1) Anemia Anemia type: unspecified type Qualified Code(s): D64.9 - Anemia, unspecified
--- NOTE | 2020-04-16 14:48 | Pharmacy Report ---
Pharmacy Glycemic Short Note 2 - Date of Service April 16, 2020 - Glycemic Short BSG Results (Last 24 hours): 04/15/20 04/15/20 04/15/20 16:44 16:45 17:26 Glucose 341 H* POC Glucose 409 H* 381 H* 04/15/20 04/15/20 04/16/20 20:11 23:57 04:12 Glucose POC Glucose 244 H 160 H 126 H 04/16/20 04/16/20 04/16/20 05:33 07:32 11:35 Glucose 106 H POC Glucose 98 125 H OUTPATIENT ANTIDIABETIC REGIMEN: * Glimepiride 2mg daily ASSESSMENT: * Patient with COVID-19 pneumonia experiencing likely steroid induced hyperglycemia. Day 9 of dexamethasone. BSGs had been reasonable until yesterday at dinner time. Novolog changed to q4 and tightened. Given fasting excellent this morning, will continue with current basal regimen. Of note patient was NPO this morning until lunchtime and did receive HD today. PLAN FOR INPATIENT GLYCEMIC CONTROL: * Hold outpatient oral diabetes medications * Basal insulin * Lantus 10 units SQ HS * Bolus insulin * NovoLog per scale ACHS or Q4h * Goal Range: Low 120 mg/dL - High 150 mg/dL * Correction Factor: 20 mg/dL/unit * Nutritional / Prandial insulin per carb ratio of 1 unit per 6 grams CHO consumed
[2020-04-16] MEDS: INSULIN GLARGINE SOLOSTAR 100 UNITS/ML 3 ML PEN SC SCH (21:15)
[2020-04-16] MEDS: ACETAMINOPHEN 325 MG TAB PO PRN (23:09)
[2020-04-16] MEDS: guaiFENesin/DEXTROM SYRUP 100MG/10MG 5ML UDC PO PRN (23:10)
[2020-04-17] MEDS: INSULIN ASPART 100 UNITS/ML 3 ML PEN SC SCH ×6 (04:05→21:41)
[2020-04-17] MEDS: HEPARIN SOD 5,000 UNIT/0.5 ML VIAL SQ SCH ×3 (05:23→21:43)
[2020-04-17] MEDS: ACETAMINOPHEN 325 MG TAB PO PRN (08:15)
[2020-04-17] MEDS: amLODIPine BESYLATE 5 MG TAB PO SCH (08:17)
[2020-04-17] MEDS: CALCITRIOL 0.25 MCG CAPSULE PO SCH (08:18)
[2020-04-17] MEDS: NEPHROCAPS PO SCH (08:18)
[2020-04-17] MEDS: FERROUS SULFATE 325 MG TAB PO SCH (08:18)
[2020-04-17] MEDS: ROSUVASTATIN CALCIUM 10 MG TAB PO SCH (08:18)
[2020-04-17] MEDS: CALCIUM ACETATE 667 MG CAP/TAB PO SCH ×3 (08:19→18:14)
[2020-04-17] MEDS: PANTOprazole 40 MG TAB PO SCH (08:20)
[2020-04-17] MEDS: allopurinoL 100 MG TAB PO SCH (08:20)
[2020-04-17] MEDS: dexAMETHasone 6 MG in SYRINGE 0 ML IV SCH (08:22)
[2020-04-17] MEDS: diphenhydrAMINE 50 MG/ML VIAL IV PRN (08:24)
--- NOTE | 2020-04-17 12:02 | Nephrology Progress Note ---
Date of Service April 17, 2020 Assessment & Plan (1) ESRD needing dialysis: HD MWF schedule. Tolerating treatment well. Started on hemodialysis on 04/09/[address] catheter[address] Dr. Mayo placed permcath 04/16. Due to COVID+, isolation precautions in place for 14-21 days post +test. Special consideration will be necessary for coordinating continued isolation for IHD post discharge. I discussed the plan of care with Dr. Oropeza this AM. Medications are appropriately dosed for kidney function. (2) Anemia: s/p PRBC transfusion support x 3 u. Venofer 200 mg IV x 5 doses completed. Epogen 66293 units given on 04/10. Additional Epogen 4000 units 04/16. (3) Hypocalcemia: CKD/MBD with sPTH. Calcium acetate QAC for hyperphos. Calcitriol 0.5 QAM. (4) Fluid overload: Improving with HD. Low sodium diet and fluid restriction <1.5 L/d. (5) Pneumonia due to COVID-19 virus: Discharge planning considerations discussed with primary team. Admission and Anticipated Discharge Date Admission Date: April 09, 2020 Subjective No acute events overnight. No complaints this morning. Tolerated HD well yesterday without complications. Review of Systems Constitutional: no weight loss, no weight gain and no problem reported Eyes: no problem reported Ear, Nose, Mouth, Throat: no problem reported Respiratory: no problem reported Cardiovascular: no problem reported Gastrointestinal: no problem reported Musculoskeletal: no problem reported Integumentary: no problem reported Neurologic: no problem reported Psychiatric: no problem reported Endocrine: no problem reported Hematologic / Lymphatic: no problem reported Physical Exam Constitutional: well developed; no acute distress Eyes: no scleral abnormality and no corneal abnormality ENMT: Mouth: no oral mucosal abnormality and oral mucous membranes not dry Neck: normal visual inspection and trachea midline Respiratory: normal respiratory effort Auscultation: lungs clear to auscultation bilaterally Cardiovascular: Rate/Rhythm: regular rate Heart Sounds: normal S1 and normal S2 Extremities: no edema Musculoskeletal: Extremities: no cyanosis and no clubbing Skin: normal turgor; no lesions Neurologic: Motor/Sensory: no tremor and no asterixis Psychiatric: Orientation: alert and oriented x 3 Results & Data ([facility]) Vital Signs (Past 12 Hours) Vital Signs Temp Pulse Pulse Resp BP Pulse Ox 04/17/20 11:22 36.7 C 84 20 129/65 96 04/17/20 07:13 36.5 C 87 16 159/76 H 95 04/17/20 03:48 37 C 86 16 159/78 H 92 Laboratory Results Laboratory Results - last 24 hr 04/16/20 04/16/20 04/16/20 16:51 20:26 23:51 POC Glucose 193 H 276 H 201 H 04/17/20 04/17/20 03:50 08:15 POC Glucose 138 H 94 PG Care Time/CCT Total # of Minutes Spent Total Time Spent with Patient: Total time spent is greater than 50% in coordination of care (as documented) at patient's floor/unit and/or counseling patient: Coding Level of Care Code 34936 Subseq Hosp Care Lvl 3 Diagnoses ESRD needing dialysis N18.6; Z99.2 Anemia D64.9 Anemia type: unspecified type Hypocalcemia E83.51 Fluid overload E87.70 Hypervolemia type: unspecified Pneumonia due to COVID-19 virus U07.1; J12.82 (1) Anemia Anemia type: unspecified type Qualified Code(s): D64.9 - Anemia, unspecified (2) Fluid overload Hypervolemia type: unspecified Qualified Code(s): E87.70 - Fluid overload, unspecified
[2020-04-17] MEDS: traMADol HCL 50 MG TABLET PO PRN (13:01)
--- NOTE | 2020-04-17 15:55 | Hospitalist Progress Note ---
Date of Service April 17, 2020 Assessment & Plan (1) ESRD needing dialysis: Presented with a creatinine of 16, BUN 125 with severe volume overload and respiratory failure as well as hypertensive urgency With a history of CKD stage IV-V in the past and no ongoing medical care for the last year due to having no insurance Had temporary dialysis catheter placed on 04/09 by mercury cracking tester received hemodialysis on 04/09, and 04/10, 04/11, and 04/12-tolerated well Electrolytes are all much improved, remains hypertensive but much improved, volume overload also much improved but persists with 2+ pitting edema of lower extremities and abdominal distention -Hypoxia resolved and pulmonary edema much improved on examination Presented with metabolic acidosis, hypocalcemia, and severe anemia as below. All now improving/resolved Appreciate nephrology consultation PermCath placement on 04/[address] Mayo -had HD afterwards, tolerated well plan for HD tomorrow Due to hypocalcemia, nephrology changed sevelamer to PhosLo instead -Started Nephrocaps, receiving IV iron x5 doses and Epogen x1 -Started calcitriol 0.5 mcg once daily -Renally dose medications for GFR less than 10 -Renal diet, fluid restrict to 1500 mL/day difficult social situation, he is essentially homeless, need to determine living arrangements prior to outpatient HD plan to go to [facility], will get transport to outpatient HD clinic and then will transfer up to [facility] for continued rehab [facility] will help with trying to set up housing (2) Pneumonia due to COVID-19 virus: Pneumonia due to COVID-19 virus with hypoxia-initially required BiPAP and is now weaned to room air on 04/14 after volume removal with IV Lasix as well as hemodialysis and starting dexamethasone Continue dexamethasone 6 mg IV every morning x10-day course-last dose will be 04/17/2020 (today) He still has a mild cough at times but is improving. Remains afebrile. With leukocytosis secondary to steroid use at this point Continue Duonebs every 4 hours while awake and every 2 hours when necessary. Procalcitonin was elevated at 1.1 so may be secondary bacterial involvement- repeat procalcitonin on 04/15 remains elevated but may be due to renal failure. Clinically improved and can discontinue antibiotics Completed a 5-day course of azithromycin Completed Zosyn x7-day course-last dose on 04/15 Follow chest x-ray to resolution as an outpatient -Continue guaifenesin DM as needed for cough (3) Hypoxia: With acute respiratory failure with hypoxia See above, secondary to volume overload from renal failure as well as Covid-19 pneumonia Resolved, breathing room air well (4) Hypokalemia: Potassium slightly low will treat with HD with low K bath (5) Diabetes mellitus with hyperglycemia: Hold glimepiride from home and would not restart in the setting of ESRD Blood sugars were better controlled but now with significantly worsening hyperglycemia now that he is eating more and on dexamethasone, persists despite adding Lantus Continue Accu-Cheks before meals and at bedtime with NovoLog coverage per scale Hemoglobin A1c 5.4% but is likely inaccurate in the setting of severe anemia and renal failure Glucose better controlled past few days (6) Anemia: Hemoglobin remained at 7.2 despite 1 unit PRBCs on 04/09, but is now up to 9-10 and stable after 2 more units of PRBCs on 04/10 and IV iron as well as Epogen No gross bleeding from anywhere. Most likely secondary to anemia of chronic kid elena disease Transferrin saturation 20% B12 is normal, folate low normal at 6 Nephrology ordered 5 doses of IV Venofer Continue p.o. ferrous sulfate Hemoccult stool pending/not collected Started Nephrocaps with folate Follow CBC in the morning (7) Hypocalcemia: Calcium level severely low at 5.5 on admission here but now normal after several days of correction with IV calcium gluconate Changed sevelamer to PhosLo which has calcium in it This is secondary to severe renal failure Follow calcium and albumin levels (8) Nausea & vomiting: As above, likely secondary to BPPV as well as uremia and Covid-19 Now resolved, lauryn reg diet (9) Ileus: With mild abdominal distention here and nausea/vomiting which is now resolved Abdominal distention is now improved, moving his bowels Likely secondary to uremia Now lauryn reg diet (10) Elevated troponin I level: Troponin mildly elevated at 0.06/0.112 Repeat is minimally elevated over initial He has no chest pain, ECG was without ischemic changes Most likely myocardial demand ischemia in the setting of renal failure and Covid-19 with profound hypoxia Cannot get echo and less urgent as he is a Covid patient and I do not feel this is urgent (11) Hypoalbuminemia: Secondary to acute illness and poor nutrition He was given IV albumin initially upon admission (12) Homelessness: He mostly lives out of his truck but does sleep at his sister's house although he reports his sister officially evicted him today while he was in the hospital Case management is involved and he has been given information on emergency housing after discharge (13) Hypomagnesemia: Replaced Resolved (14) GERD (gastroesophageal reflux disease): No acute issues Continue home Protonix (15) Hypertension: Blood pressures were quite elevated secondary to renal failure and volume overload--> NOW much improved Continue amlodipine, IV hydralazine as needed -continue increased dose of amlodipine to 10 mg -Continue hemodialysis scheduled Thursday (16) Elevated alkaline phosphatase level: Alkaline phosphatase is elevated at 232 but is down from 400 previously This is likely secondary to renal osteodystrophy, plus may have some fatty liver Started calcitriol, phosphate binders Follow LFTs (17) Vertigo: With intermittent vertigo causing nausea and vomiting which comes on with changes in position. He reports this is a chronic issue May be worsened by volume overload Now resolved, received 1 dose of IV Benadryl and stopped Nitropaste -Continue IV Benadryl as needed for nausea and vertigo-has not needed any in many days Would avoid benzodiazepines given severe renal failure Antiemetics with Zofran as needed (18) DVT prophylaxis: Heparin SQ Disposition-continued stay on PCU, slowly improving, expect discharge possibly to rehab on Thursday after perm cath placement and HD on Thursday. Case management is following. Admission and Anticipated Discharge Date Admission Date: April 09, 2020 Subjective patient had some pain in right neck associated with the tunneled permacath, better after Ultram he is eating well, no fever, no chills, no chest pain he has some edema in his legs discussed d/c plans with CM, as of right now plan to go to [facility] in [place] for rehab, will transport to HD issue is that he cannot start new HD on Thursday and their clinic is Thu so will likely be here until Thursday he is on board with plan Review of Systems Review of Systems: All systems reviewed & are unremarkable except as noted in Subjective Cardiovascular: + edema and + problem reported (pain with right sided permacath) Physical Exam Constitutional: WD/WN, vitals as above + overweight Neck: trachea midline, no thyromegaly Respiratory: normal respiratory effort, lungs clear to auscultation Cardiovascular: Rate/Rhythm: regular rate and regular rhythm Heart Sounds: normal S1 and normal S2; no murmur Vessels: no JVD Extremities: normal capillary refill and + edema Gastrointestinal (Abdomen): normal bowel sounds, soft, nontender, no hepatosplenomegaly Musculoskeletal: no cyanosis or clubbing, extremities motor strength 5/5 Skin: no rashes, warm and dry Neurologic: patellar DTR's 2+ bilat, sensation intact and PERRL, EOMI, accommodation nl, no face palsy, no dysarthria Psychiatric: A+Ox3, euthymic affect Lymphatic: no cervical or axillary lymphadenopathy Results & Data Results & Data ([facility]) Vital Signs (Past 12 Hours) Vital Signs Temp Pulse Pulse Resp BP Pulse Ox 04/17/20 15:20 36.6 C 79 20 143/72 H 96 04/17/20 11:22 36.7 C 84 20 129/65 96 04/17/20 07:13 36.5 C 87 16 159/76 H 95 04/17/20 03:48 37 C 86 16 159/78 H 92 Laboratory Results Laboratory Results - last 24 hr 04/16/20 04/16/20 04/16/20 16:51 20:26 23:51 POC Glucose 193 H 276 H 201 H 04/17/20 04/17/20 04/17/20 03:50 08:15 12:00 POC Glucose 138 H 94 246 H Medications Administered Current Inpatient Medications Acetaminophen (Acetaminophen 325 Mg Tab) 650 mg PO Q4H PRN PRN Reason: Pain or Fever Stop: 05/09/20 01:57 Last Admin: 04/17/20 08:15 Dose: 650 mg Documented by: Albuterol (Albut/Ipratrop 3mg/0.5mg Neb 3 Ml Vial) 3 ml NEB Q4R PRN PRN Reason: Shortness Of Breath Or Wheezing Stop: 05/09/20 08:45 Allopurinol (Allopurinol 100 Mg Tab) 100 mg PO DAILY [facility] Stop: 05/09/20 08:59 Last Admin: 04/17/20 08:20 Dose: 100 mg Documented by: Amlodipine Besylate (Amlodipine Besylate 5 Mg Tab) 10 mg PO QAM [facility] Stop: 05/13/20 08:59 Last Admin: 04/17/20 08:17 Dose: 10 mg Documented by: Calcitriol (Calcitriol 0.25 Mcg Capsule) 0.5 mcg PO QAM [facility] Stop: 05/11/20 08:59 Last Admin: 04/17/20 08:18 Dose: 0.5 mcg Documented by: Calcium Acetate (Calcium Acetate 667 Mg Cap/Tab) 667 mg PO TIDM [facility] Stop: 05/14/20 11:59 Last Admin: 04/17/20 12:40 Dose: 667 mg Documented by: Dextrose (Dextrose 50% 50 Ml Syringe) 25 - 50 ml IV UD PRN; Protocol PRN Reason: Hypoglycemia Protocol Stop: 05/09/20 01:57 Diphenhydramine HCl (Diphenhydramine 50 Mg/Ml Vial) 12.5 mg IV Q6 PRN PRN Reason: nausea,vertigo Stop: 05/11/20 10:42 Last Admin: 04/17/20 08:24 Dose: 12.5 mg Documented by: Ferrous Sulfate (Ferrous Sulfate 325 Mg Tab) 325 mg PO DAILY [facility] Stop: 05/09/20 08:59 Last Admin: 04/17/20 08:18 Dose: 325 mg Documented by: Glucagon (Glucagon For Inj 1 Mg Vial) 1 mg SQ UD PRN; Protocol PRN Reason: Hypoglycemia Protocol Stop: 05/09/20 01:57 Glucose (Glucose 10 Tabs/Tube) 4 - 8 tabs PO UD PRN; Protocol PRN Reason: Hypoglycemia Protocol Stop: 05/09/20 01:57 Glucose (Glucose 40% Gel 15 Gm Tube) 15 - 30 gm PO UD PRN; Protocol PRN Reason: Hypoglycemia Protocol Stop: 05/09/20 01:57 Guaifenesin/Dextromethorphan (Guaifenesin/Dextrom Syrup 100mg/10mg 5ml Udc) 5 ml PO Q6H PRN PRN Reason: Cough Stop: 05/14/20 22:17 Last Admin: 04/16/20 23:10 Dose: 5 ml Documented by: Heparin Sodium (Porcine) (Heparin Sod 5,000 Unit/0.5 Ml Vial) 7,500 units SQ Q8 [facility] Stop: 05/09/20 05:59 Last Admin: 04/17/20 13:02 Dose: 7,500 units Documented by: Hydralazine HCl (Hydralazine Hcl 20 Mg/Ml Vial) 10 mg IV Q4H PRN PRN Reason: Blood Pressure - High Stop: 05/09/20 03:02 Last Admin: 04/16/20 00:13 Dose: 10 mg Documented by: Dexamethasone 6 mg/ Syringe 1.5 mls @ 1 mls/min IV QAM [facility] Stop: 04/18/20 09:02 Last Admin: 04/17/20 08:22 Dose: 1 mls/min Documented by: Insulin Aspart (Insulin Aspart 100 Units/Ml 3 Ml Pen) 0 units SC ACHS [facility] Stop: 05/16/20 00:00 Last Admin: 04/17/20 12:44 Dose: 10 units Documented by: Insulin Glargine (Insulin Glargine Solostar 100 Units/Ml 3 Ml Pen) 10 units SC HS [facility] Stop: 05/13/20 20:59 Last Admin: 04/16/20 21:15 Dose: 10 units Documented by: Magnesium Hydroxide (Magnesium Hydroxide Susp 30 Ml Udc) 30 ml PO Q12H PRN PRN Reason: Constipation Stop: 05/09/20 01:57 Metoprolol Tartrate (Metoprolol Tartrate 1 Mg/Ml Vial) 5 mg IV Q4 PRN PRN Reason: Blood Pressure - High Stop: 05/09/20 03:59 Last Admin: 04/14/20 03:59 Dose: 5 mg Documented by: Miscellaneous (Carbohydrates For Hypoglycemia ) 15 - 30 gm PO UD PRN PRN Reason: Hypoglycemia Protocol Stop: 05/09/20 01:57 Miscellaneous Information (Pharmacy Glycemic Mgmt Consult) 1 ea N/A UD PRN PRN Reason: Consult Stop: 05/15/20 17:12 Ondansetron HCl (Ondansetron Inj 2 Mg/Ml 2 Ml Vial) 4 mg IV Q6H PRN PRN Reason: Nausea Stop: 05/09/20 01:57 Last Admin: 04/11/20 09:20 Dose: 4 mg Documented by: Pantoprazole Sodium (Pantoprazole 40 Mg Tab) 40 mg PO DAILY [facility] Stop: 05/09/20 08:59 Last Admin: 04/17/20 08:20 Dose: 40 mg Documented by: Rosuvastatin Calcium (Rosuvastatin Calcium 10 Mg Tab) 10 mg PO DAILY [facility] Stop: 05/09/20 08:59 Last Admin: 04/17/20 08:18 Dose: 10 mg Documented by: Tramadol HCl (Tramadol Hcl 50 Mg Tablet) 50 mg PO Q4H PRN PRN Reason: Pain Stop: 05/17/20 11:23 Last Admin: 04/17/20 13:01 Dose: 50 mg Documented by: Vitamin B Complex/Folic Acid (Nephrocaps) 1 cap PO QAM [facility] Stop: 05/11/20 08:59 Last Admin: 04/17/20 08:18 Dose: 1 cap Documented by: PG Care Time/CCT Total # of Minutes Spent Total Time Spent with Patient: Total time spent is greater than 50% in coordination of care (as documented) at patient's floor/unit and/or counseling patient: Coding Level of Care Code 26006 Subseq Hosp Care Lvl 2 Diagnoses ESRD needing dialysis N18.6; Z99.2 Pneumonia due to COVID-19 virus U07.1; J12.82 Hypoxia R09.02 Hypokalemia E87.6 Diabetes mellitus with hyperglycemia E11.65 Anemia D64.9 Anemia type: unspecified type Hypocalcemia E83.51 Nausea & vomiting R11.2 Ileus K56.7 Elevated troponin I level R77.8 Hypoalbuminemia E88.09 Homelessness Z59.0 Hypomagnesemia E83.42 GERD (gastroesophageal reflux disease) K21.9 Hypertension I10 Elevated alkaline phosphatase level R74.8 Vertigo R42 DVT prophylaxis Z29.9 (1) Anemia Anemia type: unspecified type Qualified Code(s): D64.9 - Anemia, unspecified
[2020-04-17] MEDS: INSULIN GLARGINE SOLOSTAR 100 UNITS/ML 3 ML PEN SC SCH (21:40)
[2020-04-17] MEDS: guaiFENesin/DEXTROM SYRUP 100MG/10MG 5ML UDC PO PRN (22:14)
[2020-04-18] MEDS: HEPARIN SOD 5,000 UNIT/0.5 ML VIAL SQ SCH ×3 (05:28→21:23)
[2020-04-18 07:30] LABS: Hematocrit (blood only) 29.3 % (42-52); Hemoglobin 9.8 g/dL (14.0-18.0)
[2020-04-18 08:09] LABS: Albumin Globulin Ratio 0.5 (0.9-2); Albumin Level 1.9 gm/dl (3.4-5.0); BUN Creatinine Ratio 6.4 (10-20); Bilirubin,Total 0.5 mg/dl (0.2-1); Calcium 7.4 mg/dl (8.5-10.1); Creatinine Clr Calc Pharmacy 11.2 ml/min; Est GFR (African American) 7.1; Est GFR (Non-African American) 6.2; Globulin 3.8 gm/dl (2.5-4.0); Phosphorus 4.5 mg/dl (2.5-4.9); Potassium 3.3 mmol/L (3.5-5.1); Total Protein 5.7 gm/dl (6.4-8.2)
[2020-04-18] MEDS: amLODIPine BESYLATE 5 MG TAB PO SCH ×2 (08:17→13:30)
[2020-04-18] MEDS: INSULIN ASPART 100 UNITS/ML 3 ML PEN SC SCH ×4 (08:24→21:22)
[2020-04-18] MEDS: FERROUS SULFATE 325 MG TAB PO SCH (08:26)
[2020-04-18] MEDS: CALCITRIOL 0.25 MCG CAPSULE PO SCH (08:26)
[2020-04-18] MEDS: CALCIUM ACETATE 667 MG CAP/TAB PO SCH ×3 (08:27→18:17)
[2020-04-18] MEDS: ROSUVASTATIN CALCIUM 10 MG TAB PO SCH (08:27)
[2020-04-18] MEDS: NEPHROCAPS PO SCH (08:27)
[2020-04-18] MEDS: allopurinoL 100 MG TAB PO SCH (08:27)
[2020-04-18] MEDS: PANTOprazole 40 MG TAB PO SCH (08:28)
[2020-04-18] MEDS: dexAMETHasone 6 MG in SYRINGE 0 ML IV SCH (08:28)
--- NOTE | 2020-04-18 10:43 | Nephrology Progress Note ---
Date of Service April 18, 2020 Assessment & Plan (1) ESRD needing dialysis: Orders for HD today entered into EMR and reviewed with HD nurse. Librado was evaluated during HD. Qb at goal. BP acceptable. UF goal 2 L. Started on hemodialysis on 04/09/2020 via temporary dialysis catheter. Dr. Mayo placed permcath 04/16. Due to COVID+, isolation precautions in place for 14-21 days post +test. Special consideration will be necessary for coordinating continued isolation for IHD post discharge. Card coordination notes reviewed. I have been in contact with [facility] regarding anticipated outpatient needs. Medications are appropriately dosed for kidney function. (2) Anemia: s/p PRBC transfusion support x 3 u. Venofer 200 mg IV x 5 doses completed. Epogen 18403 units given on 04/10. Additional Epogen 4000 units 04/16. (3) Hypocalcemia: CKD/MBD with sPTH. Calcium acetate QAC for hyperphos. Calcitriol 0.5 QAM. (4) Fluid overload: Improving with HD. Low sodium diet and fluid restriction <1.5 L/d. (5) Pneumonia due to COVID-19 virus: Discharge planning considerations discussed with primary team. Admission and Anticipated Discharge Date Admission Date: April 09, 2020 Subjective Some discomfort and bleeding from permcath exit site overnight. Pressure dressing applied. Librado was seen and evaluated prior to and during HD this AM. He feels otherwise well. Tolerating HD without issues. Review of Systems Review of Systems: All systems reviewed & are unremarkable except as noted in HPI & below Physical Exam Physical Exam: Deferred due to COVID. Constitutional: well developed; no acute distress Eyes: no scleral abnormality and no corneal abnormality ENMT: Mouth: no oral mucosal abnormality and oral mucous membranes not dry Neck: normal visual inspection and trachea midline Respiratory: normal respiratory effort Auscultation: lungs clear to auscultation bilaterally Cardiovascular: Rate/Rhythm: regular rate Heart Sounds: normal S1 and normal S2 Extremities: no edema Musculoskeletal: Extremities: no cyanosis and no clubbing Skin: normal turgor; no lesions Neurologic: Motor/Sensory: no tremor and no asterixis Psychiatric: Orientation: alert and oriented x 3 Results & Data ([facility]) Vital Signs (Past 12 Hours) Vital Signs Temp Pulse Pulse Pulse Resp BP BP 04/18/20 10:20 78 140/82 04/18/20 10:00 93 H 162/102 H 04/18/20 09:40 85 143/77 H 04/18/20 09:20 88 134/84 04/18/20 09:04 36.5 C 94 H 94 H 179/87 H 04/18/20 07:39 36.6 C 82 18 139/68 Pulse Ox 04/18/20 10:20 04/18/20 10:00 04/18/20 09:40 04/18/20 09:20 04/18/20 09:04 04/18/20 07:39 96 Laboratory Results Laboratory Results - last 24 hr 04/17/20 04/17/20 04/17/20 12:00 17:07 20:33 Hgb Hct Sodium Potassium Chloride Carbon Dioxide Anion Gap BUN Creatinine Est Cr Clr Drug Dosing Est GFR ( Amer) Est GFR (Non-Af Amer) BUN/Creatinine Ratio Glucose POC Glucose 246 H 192 H 273 H Calcium Phosphorus Total Bilirubin AST ALT Alkaline Phosphatase Total Protein Albumin Globulin Albumin/Globulin Ratio 04/18/20 04/18/20 04/18/20 06:28 06:28 08:14 Hgb 9.8 L Hct 29.3 L Sodium 133 L Potassium 3.3 L Chloride 96 L Carbon Dioxide 23 Anion Gap 13.0 H BUN 53 H Creatinine 8.37 H* Est Cr Clr Drug Dosing 11.2 Est GFR ( Amer) 7.1 Est GFR (Non-Af Amer) 6.2 BUN/Creatinine Ratio 6.4 L Glucose 145 H POC Glucose 138 H Calcium 7.4 L Phosphorus 4.5 Total Bilirubin 0.5 AST 54 H ALT 78 Alkaline Phosphatase 302 H Total Protein 5.7 L Albumin 1.9 L Globulin 3.8 Albumin/Globulin Ratio 0.5 L PG Care Time/CCT Total # of Minutes Spent Total Time Spent with Patient: Total time spent is greater than 50% in coordination of care (as documented) at patient's floor/unit and/or counseling patient: Coding Level of Care Code 62553 Subseq Hosp Care Lvl 3 Diagnoses ESRD needing dialysis N18.6; Z99.2 Anemia D64.9 Anemia type: unspecified type Hypocalcemia E83.51 Fluid overload E87.70 Hypervolemia type: unspecified Pneumonia due to COVID-19 virus U07.1; J12.82 (1) Anemia Anemia type: unspecified type Qualified Code(s): D64.9 - Anemia, unspecified (2) Fluid overload Hypervolemia type: unspecified Qualified Code(s): E87.70 - Fluid overload, unspecified
--- NOTE | 2020-04-18 11:59 | Pharmacy Report ---
Pharmacy Glycemic Short Note 2 - Date of Service April 18, 2020 - Glycemic Short BSG Results (Last 24 hours): 04/17/20 04/17/20 04/17/20 12:00 17:07 20:33 Glucose POC Glucose 246 H 192 H 273 H 04/18/20 04/18/20 06:28 08:14 Glucose 145 H POC Glucose 138 H OUTPATIENT ANTIDIABETIC REGIMEN: * Glimepiride 2mg daily ASSESSMENT: Librado received a total of 44 units of insulin yesterday with poor BSG control (10 units basal and 34 units of bolus) * Fasting BSG of 138 mg/dL this morning is acceptable. Will continue Lantus 10 units tonight, then d/c on 04/19. Uncertain if patient will require basal insulin once off steroids. * Post prandial BSGs remain elevated due to steroids for COVID-19. Today is patient's last day of dexamethasone. I anticipate significant improvement once dex has worn off. I will tighten carb coverage for today only, then loosen both correction and prandial insulin on 04/19. PLAN FOR INPATIENT GLYCEMIC CONTROL: * Hold outpatient oral diabetes medications * Basal insulin * Continue Lantus 10 units SQ HS - will d/c on 04/19 * Bolus insulin * NovoLog per scale ACHS or Q4h * Goal Range: Low 120 mg/dL - High 150 mg/dL * Correction Factor: 20 mg/dL/unit * Nutritional / Prandial insulin per carb ratio of 1 unit per 5 grams CHO consumed * Starting 04/19: * Loosen correction factor to 25 mg/dL/unit * Loosen carb ratio to 1 unit per 9 grams CHO
[2020-04-18] MEDS ORDERED: PNEUMOCOCCAL ADMINISTRATION CHARGE ONE (15:05)
[2020-04-18] MEDS ORDERED: PNEUMOCOCCAL POLYSACCHARIDES 25 MCG/0.5 ML VIAL/SYR IM ONE (15:05)
--- NOTE | 2020-04-18 16:02 | Hospitalist Progress Note ---
Date of Service April 18, 2020 Assessment & Plan (1) ESRD needing dialysis: Presented with a creatinine of 16, BUN 125 with severe volume overload and respiratory failure as well as hypertensive urgency With a history of CKD stage IV-V in the past and no ongoing medical care for the last year due to having no insurance Had temporary dialysis catheter placed on 04/09 by milk receiver received hemodialysis on 04/09, and 04/10, 04/11, and 04/12-tolerated well Electrolytes are all much improved, remains hypertensive but much improved, volume overload also much improved but persists with 2+ pitting edema of lower extremities and abdominal distention -Hypoxia resolved and pulmonary edema much improved on examination Presented with metabolic acidosis, hypocalcemia, and severe anemia as below. All now improving/resolved Appreciate nephrology consultation PermCath placement on 04/[address] Mayo -had HD afterwards, tolerated well HD today, no issues Due to hypocalcemia, nephrology changed sevelamer to PhosLo instead -Started Nephrocaps, receiving IV iron x5 doses and Epogen x1 -Started calcitriol 0.5 mcg once daily -Renally dose medications for GFR less than 10 -Renal diet, fluid restrict to 1500 mL/day difficult social situation, he is essentially homeless, need to determine living arrangements prior to outpatient HD plan to go to [facility], will get transport to outpatient HD clinic and then will transfer up to [facility] for continued rehab office of aging will help with trying to set up housing plan for d/c on Thursday, will get HD on Thursday (2) Pneumonia due to COVID-19 virus: Pneumonia due to COVID-19 virus with hypoxia-initially required BiPAP and is now weaned to room air on 04/14 after volume removal with IV Lasix as well as hemodialysis and starting dexamethasone Continue dexamethasone 6 mg IV every morning x10-day course-last dose will be 04/17/2020 (today) He still has a mild cough at times but is improving. Remains afebrile. With leukocytosis secondary to steroid use at this point Continue Duonebs every 4 hours while awake and every 2 hours when necessary. Procalcitonin was elevated at 1.1 so may be secondary bacterial involvement- repeat procalcitonin on 04/15 remains elevated but may be due to renal failure. Clinically improved and can discontinue antibiotics Completed a 5-day course of azithromycin Completed Zosyn x7-day course-last dose on 04/15 Follow chest x-ray to resolution as an outpatient -Continue guaifenesin DM as needed for cough (3) Hypoxia: With acute respiratory failure with hypoxia See above, secondary to volume overload from renal failure as well as Covid-19 pneumonia Resolved, breathing room air well for several days (4) Hypokalemia: Potassium slightly low will treat with HD with low K bath allow more K in diet (5) Diabetes mellitus with hyperglycemia: Hold glimepiride from home and would not restart in the setting of ESRD Blood sugars were better controlled but now with significantly worsening hyperglycemia now that he is eating more and on dexamethasone, persists despite adding Lantus Continue Accu-Cheks before meals and at bedtime with NovoLog coverage per scale Hemoglobin A1c 5.4% but is likely inaccurate in the setting of severe anemia and renal failure Glucose better controlled past few days (6) Anemia: Hemoglobin remained at 7.2 despite 1 unit PRBCs on 04/09, but is now up to 9.9 and stable after 2 more units of PRBCs on 04/10 and IV iron as well as Epogen No gross bleeding from anywhere. Most likely secondary to anemia of chronic kidney disease Transferrin saturation 20% B12 is normal, folate low normal at 6 Nephrology ordered 5 doses of IV Venofer Continue p.o. ferrous sulfate Hemoccult stool pending/not collected Started Nephrocaps with folate (7) Hypocalcemia: Calcium level severely low at 5.5 on admission here but now normal after several days of correction with IV calcium gluconate Changed sevelamer to PhosLo which has calcium in it This is secondary to severe renal failure Follow calcium and albumin levels (8) Nausea & vomiting: As above, likely secondary to BPPV as well as uremia and Covid-19 Now resolved, lauryn reg diet (9) Hypoalbuminemia: Secondary to acute illness and poor nutrition He was given IV albumin initially upon admission (10) Homelessness: He mostly lives out of his truck but does sleep at his sister's house although he reports his sister officially evicted him today while he was in the hospital Case management is involved and he has been given information on emergency housing after discharge will go to SNF for rehab and outpatient HD services area office of aging will help with living situation (11) Hypomagnesemia: Replaced Resolved (12) GERD (gastroesophageal reflux disease): No acute issues Continue home Protonix (13) Hypertension: Blood pressures were quite elevated secondary to renal failure and volume overload--> NOW much improved Continue amlodipine, IV hydralazine as needed -continue increased dose of amlodipine to 10 mg -Continue hemodialysis scheduled Thursday (14) Vertigo: With intermittent vertigo causing nausea and vomiting which comes on with changes in position. He reports this is a chronic issue May be worsened by volume overload Now resolved, received 1 dose of IV Benadryl and stopped Nitropaste -Continue IV Benadryl as needed for nausea and vertigo-has not needed any in many days Would avoid benzodiazepines given severe renal failure Antiemetics with Zofran as needed (15) DVT prophylaxis: Heparin SQ Disposition-continued stay on PCU, slowly improving, expect discharge possibly to rehab on Thursday after perm cath placement and HD on Thursday. Case management is following. Admission and Anticipated Discharge Date Admission Date: April 09, 2020 Subjective patient tolerated HD today, no issues eating well, no nausea, moving his bowels still with lower extremity edema no dyspnea, occasional cough (dry), no chest pain, no fever Review of Systems Review of Systems: All systems reviewed & are unremarkable except as noted in Subjective Cardiovascular: + edema Physical Exam Constitutional: WD/WN, vitals as above + overweight Neck: trachea midline, no thyromegaly Respiratory: normal respiratory effort, lungs clear to auscultation Cardiovascular: RRR, no murmur, no edema Rate/Rhythm: regular rate and regular rhythm Heart Sounds: normal S1 and normal S2; no murmur Vessels: no JVD Extremities: normal capillary refill and + edema Gastrointestinal (Abdomen): normal bowel sounds, soft, nontender, no hepatosplenomegaly Musculoskeletal: no cyanosis or clubbing, extremities motor strength 5/5 Skin: no rashes, warm and dry Neurologic: patellar DTR's 2+ bilat, sensation intact and PERRL, EOMI, accommodation nl, no face palsy, no dysarthria Psychiatric: A+Ox3, euthymic affect Lymphatic: no cervical or axillary lymphadenopathy Results & Data Results & Data ([facility]) Vital Signs (Past 12 Hours) Vital Signs Temp Pulse Pulse Pulse Pulse Resp BP 04/18/20 15:54 36.8 C 83 16 04/18/20 12:55 37.0 C 87 16 04/18/20 12:35 36.5 C 83 83 153/83 H 04/18/20 12:20 79 142/73 H 04/18/20 12:00 79 156/79 H 04/18/20 11:40 86 165/77 H 04/18/20 11:20 84 155/86 H 04/18/20 11:00 87 147/78 H 04/18/20 10:40 86 135/73 04/18/20 10:20 78 140/82 04/18/20 10:00 93 H 162/102 H 04/18/20 09:40 85 143/77 H 04/18/20 09:20 88 134/84 04/18/20 09:04 36.5 C 94 H 94 H 179/87 H 04/18/20 07:39 36.6 C 82 18 BP BP Pulse Ox 04/18/20 15:54 158/72 H 96 04/18/20 12:55 160/70 H 95 04/18/20 12:35 153/83 H 04/18/20 12:20 04/18/20 12:00 04/18/20 11:40 04/18/20 11:20 04/18/20 11:00 04/18/20 10:40 04/18/20 10:20 04/18/20 10:00 04/18/20 09:40 04/18/20 09:20 04/18/20 09:04 04/18/20 07:39 139/68 96 Laboratory Results Laboratory Results - last 24 hr 04/17/20 04/17/20 04/18/20 17:07 20:33 06:28 Hgb 9.8 L Hct 29.3 L Sodium Potassium Chloride Carbon Dioxide Anion Gap BUN Creatinine Est Cr Clr Drug Dosing Est GFR ( Amer) Est GFR (Non-Af Amer) BUN/Creatinine Ratio Glucose POC Glucose 192 H 273 H Calcium Phosphorus Total Bilirubin AST ALT Alkaline Phosphatase Total Protein Albumin Globulin Albumin/Globulin Ratio 04/18/20 04/18/20 04/18/20 06:28 08:14 12:55 Hgb Hct Sodium 133 L Potassium 3.3 L Chloride 96 L Carbon Dioxide 23 Anion Gap 13.0 H BUN 53 H Creatinine 8.37 H* Est Cr Clr Drug Dosing 11.2 Est GFR ( Amer) 7.1 Est GFR (Non-Af Amer) 6.2 BUN/Creatinine Ratio 6.4 L Glucose 145 H POC Glucose 138 H 162 H Calcium 7.4 L Phosphorus 4.5 Total Bilirubin 0.5 AST 54 H ALT 78 Alkaline Phosphatase 302 H Total Protein 5.7 L Albumin 1.9 L Globulin 3.8 Albumin/Globulin Ratio 0.5 L Medications Administered Current Inpatient Medications Acetaminophen (Acetaminophen 325 Mg Tab) 650 mg PO Q4H PRN PRN Reason: Pain or Fever Stop: 05/09/20 01:57 Last Admin: 04/17/20 08:15 Dose: 650 mg Documented by: Albuterol (Albut/Ipratrop 3mg/0.5mg Neb 3 Ml Vial) 3 ml NEB Q4R PRN PRN Reason: Shortness Of Breath Or Wheezing Stop: 05/09/20 08:45 Allopurinol (Allopurinol 100 Mg Tab) 100 mg PO DAILY [facility] Stop: 05/09/20 08:59 Last Admin: 04/18/20 08:27 Dose: 100 mg Documented by: Amlodipine Besylate (Amlodipine Besylate 5 Mg Tab) 10 mg PO QAM [facility] Stop: 05/13/20 08:59 Last Admin: 04/18/20 13:30 Dose: 10 mg Documented by: Calcitriol (Calcitriol 0.25 Mcg Capsule) 0.5 mcg PO QAM [facility] Stop: 05/11/20 08:59 Last Admin: 04/18/20 08:26 Dose: 0.5 mcg Documented by: Calcium Acetate (Calcium Acetate 667 Mg Cap/Tab) 667 mg PO TIDM [facility] Stop: 05/14/20 11:59 Last Admin: 04/18/20 08:27 Dose: 667 mg Documented by: Dextrose (Dextrose 50% 50 Ml Syringe) 25 - 50 ml IV UD PRN; Protocol PRN Reason: Hypoglycemia Protocol Stop: 05/09/20 01:57 Diphenhydramine HCl (Diphenhydramine 50 Mg/Ml Vial) 12.5 mg IV Q6 PRN PRN Reason: nausea,vertigo Stop: 05/11/20 10:42 Last Admin: 04/17/20 08:24 Dose: 12.5 mg Documented by: Ferrous Sulfate (Ferrous Sulfate 325 Mg Tab) 325 mg PO DAILY [facility] Stop: 05/09/20 08:59 Last Admin: 04/18/20 08:26 Dose: 325 mg Documented by: Glucagon (Glucagon For Inj 1 Mg Vial) 1 mg SQ UD PRN; Protocol PRN Reason: Hypoglycemia Protocol Stop: 05/09/20 01:57 Glucose (Glucose 10 Tabs/Tube) 4 - 8 tabs PO UD PRN; Protocol PRN Reason: Hypoglycemia Protocol Stop: 05/09/20 01:57 Glucose (Glucose 40% Gel 15 Gm Tube) 15 - 30 gm PO UD PRN; Protocol PRN Reason: Hypoglycemia Protocol Stop: 05/09/20 01:57 Guaifenesin/Dextromethorphan (Guaifenesin/Dextrom Syrup 100mg/10mg 5ml Udc) 5 ml PO Q6H PRN PRN Reason: Cough Stop: 05/14/20 22:17 Last Admin: 04/17/20 22:14 Dose: 5 ml Documented by: Heparin Sodium (Porcine) (Heparin Sod 5,000 Unit/0.5 Ml Vial) 7,500 units SQ Q8 [facility] Stop: 05/09/20 05:59 Last Admin: 04/18/20 13:30 Dose: 7,500 units Documented by: Hydralazine HCl (Hydralazine Hcl 20 Mg/Ml Vial) 10 mg IV Q4H PRN PRN Reason: Blood Pressure - High Stop: 05/09/20 03:02 Last Admin: 04/16/20 00:13 Dose: 10 mg Documented by: Insulin Aspart (Insulin Aspart 100 Units/Ml 3 Ml Pen) 0 units SC [facility] Stop: 04/18/20 23:59 Last Admin: 04/18/20 13:31 Dose: 10 units Documented by: Insulin Aspart (Insulin Aspart 100 Units/Ml 3 Ml Pen) 0 units SC ACHS [facility] Stop: 05/19/20 07:29 Insulin Glargine (Insulin Glargine Solostar 100 Units/Ml 3 Ml Pen) 10 units SC [facility] Stop: 04/18/20 23:59 Last Admin: 04/17/20 21:40 Dose: 10 units Documented by: Magnesium Hydroxide (Magnesium Hydroxide Susp 30 Ml Udc) 30 ml PO Q12H PRN PRN Reason: Constipation Stop: 05/09/20 01:57 Metoprolol Tartrate (Metoprolol Tartrate 1 Mg/Ml Vial) 5 mg IV Q4 PRN PRN Reason: Blood Pressure - High Stop: 05/09/20 03:59 Last Admin: 04/14/20 03:59 Dose: 5 mg Documented by: Miscellaneous (Carbohydrates For Hypoglycemia ) 15 - 30 gm PO UD PRN PRN Reason: Hypoglycemia Protocol Stop: 05/09/20 01:57 Miscellaneous Information (Pharmacy Glycemic Mgmt Consult) 1 ea N/A UD PRN PRN Reason: Consult Stop: 05/15/20 17:12 Ondansetron HCl (Ondansetron Inj 2 Mg/Ml 2 Ml Vial) 4 mg IV Q6H PRN PRN Reason: Nausea Stop: 05/09/20 01:57 Last Admin: 04/11/20 09:20 Dose: 4 mg Documented by: Pantoprazole Sodium (Pantoprazole 40 Mg Tab) 40 mg PO DAILY [facility] Stop: 05/09/20 08:59 Last Admin: 04/18/20 08:28 Dose: 40 mg Documented by: Rosuvastatin Calcium (Rosuvastatin Calcium 10 Mg Tab) 10 mg PO DAILY [facility] Stop: 05/09/20 08:59 Last Admin: 04/18/20 08:27 Dose: 10 mg Documented by: Tramadol HCl (Tramadol Hcl 50 Mg Tablet) 50 mg PO Q4H PRN PRN Reason: Pain Stop: 05/17/20 11:23 Last Admin: 04/17/20 13:01 Dose: 50 mg Documented by: Vitamin B Complex/Folic Acid (Nephrocaps) 1 cap PO QAM [facility] Stop: 05/11/20 08:59 Last Admin: 04/18/20 08:27 Dose: 1 cap Documented by: PG Care Time/CCT Total # of Minutes Spent Total Time Spent with Patient: Total time spent is greater than 50% in coordination of care (as documented) at patient's floor/unit and/or counseling patient: Coding Level of Care Code 79410 Subseq Hosp Care Lvl 2 Diagnoses ESRD needing dialysis N18.6; Z99.2 Pneumonia due to COVID-19 virus U07.1; J12.82 Hypoxia R09.02 Hypokalemia E87.6 Diabetes mellitus with hyperglycemia E11.65 Anemia D64.9 Anemia type: unspecified type Hypocalcemia E83.51 Nausea & vomiting R11.2 Hypoalbuminemia E88.09 Homelessness Z59.0 Hypomagnesemia E83.42 GERD (gastroesophageal reflux disease) K21.9 Hypertension I10 Vertigo R42 DVT prophylaxis Z29.9 (1) Anemia Anemia type: unspecified type Qualified Code(s): D64.9 - Anemia, unspecified
[2020-04-18] MEDS: INSULIN GLARGINE SOLOSTAR 100 UNITS/ML 3 ML PEN SC SCH (21:20)
[2020-04-19] MEDS: HEPARIN SOD 5,000 UNIT/0.5 ML VIAL SQ SCH ×3 (05:08→21:19)
[2020-04-19] MEDS: ROSUVASTATIN CALCIUM 10 MG TAB PO SCH (08:19)
[2020-04-19] MEDS: PANTOprazole 40 MG TAB PO SCH (08:19)
[2020-04-19] MEDS: allopurinoL 100 MG TAB PO SCH (08:19)
[2020-04-19] MEDS: CALCIUM ACETATE 667 MG CAP/TAB PO SCH ×3 (08:19→17:23)
[2020-04-19] MEDS: amLODIPine BESYLATE 5 MG TAB PO SCH (08:19)
[2020-04-19] MEDS: NEPHROCAPS PO SCH (08:19)
[2020-04-19] MEDS: CALCITRIOL 0.25 MCG CAPSULE PO SCH (08:20)
[2020-04-19] MEDS: FERROUS SULFATE 325 MG TAB PO SCH (08:20)
[2020-04-19] MEDS: INSULIN ASPART 100 UNITS/ML 3 ML PEN SC SCH ×4 (08:26→21:24)
[2020-04-19] MEDS: ACETAMINOPHEN 325 MG TAB PO PRN ×2 (10:41→19:33)
[2020-04-19] MEDS: guaiFENesin/DEXTROM SYRUP 100MG/10MG 5ML UDC PO PRN ×2 (11:48→19:33)
--- NOTE | 2020-04-19 11:59 | Nephrology Progress Note ---
Date of Service April 19, 2020 Assessment & Plan (1) ESRD needing dialysis: Next anticipated HD tomorrow. Potential discharge to [facility] this weekend. Plan to start HD at [facility] in isolation unit next week. Librado was evaluated during HD. Qb at goal. BP acceptable. Started on hemodialysis on 04/09/[address] dialysis catheter[address] Dr. Mayo placed permcath 04/16. Medications are appropriately dosed for kidney function. (2) Anemia: s/p PRBC transfusion support x 3 u. Venofer 200 mg IV x 5 doses completed. Epogen 12892 units given on 04/10. Additional Epogen 4000 units 04/16. (3) Hypocalcemia: CKD/MBD with sPTH. Calcium acetate QAC for hyperphos. Calcitriol 0.5 QAM. (4) Fluid overload: Improving with HD. Low sodium diet and fluid restriction <1.5 L/d. (5) Pneumonia due to COVID-19 virus: Discharge plan discussed with Dr. Oropeza this AM. Admission and Anticipated Discharge Date Admission Date: April 09, 2020 Subjective No acute events overnight. Librado feels well this AM. HD completed yesterday without complications. Review of Systems Review of Systems: All systems reviewed & are unremarkable except as noted in HPI & below Physical Exam Constitutional: well developed; no acute distress Eyes: no scleral abnormality and no corneal abnormality ENMT: Mouth: no oral mucosal abnormality and oral mucous membranes not dry Neck: normal visual inspection and trachea midline Respiratory: normal respiratory effort Auscultation: lungs clear to auscultation bilaterally Cardiovascular: Rate/Rhythm: regular rate Heart Sounds: normal S1 and normal S2 Extremities: no edema Musculoskeletal: Extremities: no cyanosis and no clubbing Skin: normal turgor; no lesions Neurologic: Motor/Sensory: no tremor and no asterixis Psychiatric: Orientation: alert and oriented x 3 Results & Data ([facility]) Vital Signs (Past 12 Hours) Vital Signs Temp Pulse Resp BP Pulse Ox 04/19/20 08:26 36.6 C 92 H 18 172/87 H 91 Laboratory Results Laboratory Results - last 24 hr 04/18/20 04/18/20 04/18/20 12:55 16:55 17:01 POC Glucose 162 H 316 H* 269 H Stool Occult Bld Scrn 04/18/20 04/18/20 04/18/20 17:03 20:09 20:34 POC Glucose 272 H 197 H Stool Occult Bld Scrn Negative 04/19/20 08:16 POC Glucose 136 H Stool Occult Bld Scrn PG Care Time/CCT Total # of Minutes Spent Total Time Spent with Patient: Total time spent is greater than 50% in coordination of care (as documented) at patient's floor/unit and/or counseling patient: Coding Level of Care Code 12339 Subseq Hosp Care Lvl 3 Diagnoses ESRD needing dialysis N18.6; Z99.2 Anemia D64.9 Anemia type: unspecified type Hypocalcemia E83.51 Fluid overload E87.70 Hypervolemia type: unspecified Pneumonia due to COVID-19 virus U07.1; J12.82 (1) Anemia Anemia type: unspecified type Qualified Code(s): D64.9 - Anemia, unspecified (2) Fluid overload Hypervolemia type: unspecified Qualified Code(s): E87.70 - Fluid overload, unspecified
--- NOTE | 2020-04-19 14:12 | Hospitalist Progress Note ---
Date of Service April 19, 2020 Assessment & Plan (1) ESRD needing dialysis: Presented with a creatinine of 16, BUN 125 with severe volume overload and respiratory failure as well as hypertensive urgency With a history of CKD stage IV-V in the past and no ongoing medical care for the last year due to having no insurance Had temporary dialysis catheter placed on 04/09 by police booking officer received hemodialysis on 04/09, and 04/10, 04/11, and 04/12-tolerated well Electrolytes are all much improved, remains hypertensive but much improved, volume overload also much improved but persists with 2+ pitting edema of lower extremities and abdominal distention -Hypoxia resolved and pulmonary edema much improved on examination Presented with metabolic acidosis, hypocalcemia, and severe anemia as below. All now improving/resolved Appreciate nephrology consultation PermCath placement on 04/[address] Mayo HD on 04/16, 04/18 and plan for tomorrow with discharge on Thursday Due to hypocalcemia, nephrology changed sevelamer to PhosLo instead -Started Nephrocaps, receiving IV iron x5 doses and Epogen x1 -Started calcitriol 0.5 mcg once daily -Renally dose medications for GFR less than 10 -Renal diet, fluid restrict to 1500 mL/day difficult social situation, he is essentially homeless, need to determine living arrangements prior to outpatient HD plan to go to [facility], will get transport to outpatient HD clinic and then will transfer up to [facility] for continued rehab office of aging will help with trying to set up housing plan for d/c on Thursday, will get HD on Thursday (2) Pneumonia due to COVID-19 virus: Pneumonia due to COVID-19 virus with hypoxia-initially required BiPAP and is now weaned to room air on 04/14 after volume removal with IV Lasix as well as hemodialysis and starting dexamethasone Continue dexamethasone 6 mg IV every morning [id number], completed on 04/17/2020 breathing well, no cough Completed a 5-day course of azithromycin Completed Zosyn x7-day course-last dose on 04/15 (3) Hypoxia: With acute respiratory failure with hypoxia See above, secondary to volume overload from renal failure as well as Covid-19 pneumonia Resolved, breathing room air well for several days (4) Hypokalemia: Potassium slightly low allow more K in diet (5) Diabetes mellitus with hyperglycemia: Hold glimepiride from home and would not restart in the setting of ESRD Blood sugars were better controlled but now with significantly worsening hyperglycemia now that he is eating more and on dexamethasone, persists despite adding Lantus Continue Accu-Cheks before meals and at bedtime with NovoLog coverage per scale Hemoglobin A1c 5.4% but is likely inaccurate in the setting of severe anemia and renal failure some hyperglycemia today, on Lantus 10 and Novolog SS (6) Anemia: Hemoglobin remained at 7.2 despite 1 unit PRBCs on 04/09, but is now up to 9.9 on 04/18 and stable after 2 more units of PRBCs on 04/10 and IV iron as well as Epogen No gross bleeding from anywhere. Most likely secondary to anemia of chronic kidney disease Transferrin saturation 20% B12 is normal, folate low normal at 6 Nephrology ordered 5 doses of IV Venofer Continue p.o. ferrous sulfate Hemoccult stool pending/not collected Started Nephrocaps with folate (7) Hypocalcemia: Calcium level severely low at 5.5 on admission here but now normal after several days of correction with IV calcium gluconate Changed sevelamer to PhosLo which has calcium in it This is secondary to severe renal failure Follow calcium and albumin levels (8) Nausea & vomiting: As above, likely secondary to BPPV as well as uremia and Covid-19 Now resolved, lauryn reg diet (9) Hypoalbuminemia: Secondary to acute illness and poor nutrition He was given IV albumin initially upon admission (10) Homelessness: He mostly lives out of his truck but does sleep at his sister's house although he reports his sister officially evicted him today while he was in the hospital Case management is involved and he has been given information on emergency housing after discharge will go to SNF for rehab and outpatient HD services area office of aging will help with living situation (11) Hypomagnesemia: Replaced Resolved (12) GERD (gastroesophageal reflux disease): No acute issues Continue home Protonix (13) Hypertension: Blood pressures were quite elevated secondary to renal failure and volume overload--> NOW much improved Continue amlodipine, IV hydralazine as needed -continue increased dose of amlodipine to 10 mg -Continue hemodialysis scheduled Thursday (14) Vertigo: With intermittent vertigo causing nausea and vomiting which comes on with changes in position. He reports this is a chronic issue May be worsened by volume overload Now resolved, received 1 dose of IV Benadryl and stopped Nitropaste -Continue IV Benadryl as needed for nausea and vertigo-has not needed any in many days Would avoid benzodiazepines given severe renal failure Antiemetics with Zofran as needed (15) DVT prophylaxis: Heparin SQ Disposition-continued stay on PCU, slowly improving, expect discharge possibly to rehab on Thursday after perm cath placement and HD on Thursday. Case management is following. Admission and Anticipated Discharge Date Admission Date: April 09, 2020 Subjective patient doing well, eating well, no dyspnea c/o lower extremity edema no other issues Review of Systems Review of Systems: All systems reviewed & are unremarkable except as noted in Subjective Constitutional: no fever, no fatigue and no weakness Respiratory: no cough and no dyspnea Cardiovascular: + edema; no chest pain Physical Exam Constitutional: WD/WN, vitals as above + overweight Neck: trachea midline, no thyromegaly Respiratory: normal respiratory effort, lungs clear to auscultation Cardiovascular: RRR, no murmur, no edema Rate/Rhythm: regular rate and regular rhythm Heart Sounds: normal S1 and normal S2; no murmur Vessels: no JVD Extremities: normal capillary refill and + edema Gastrointestinal (Abdomen): normal bowel sounds, soft, nontender, no hepatosplenomegaly Musculoskeletal: no cyanosis or clubbing, extremities motor strength 5/5 Skin: no rashes, warm and dry Neurologic: patellar DTR's 2+ bilat, sensation intact and PERRL, EOMI, accommodation nl, no face palsy, no dysarthria Psychiatric: A+Ox3, euthymic affect Lymphatic: no cervical or axillary lymphadenopathy Results & Data Results & Data ([facility]) Vital Signs (Past 12 Hours) Vital Signs Temp Pulse Resp BP Pulse Ox 04/19/20 08:26 36.6 C 92 H 18 172/87 H 91 Laboratory Results Laboratory Results - last 24 hr 04/18/20 04/18/20 04/18/20 16:55 17:01 17:03 POC Glucose 316 H* 269 H 272 H Stool Occult Bld Scrn 04/18/20 04/18/20 04/19/20 20:09 20:34 08:16 POC Glucose 197 H 136 H Stool Occult Bld Scrn Negative 04/19/20 11:58 POC Glucose 162 H Stool Occult Bld Scrn Medications Administered Current Inpatient Medications Acetaminophen (Acetaminophen 325 Mg Tab) 650 mg PO Q4H PRN PRN Reason: Pain or Fever Stop: 05/09/20 01:57 Last Admin: 04/19/20 10:41 Dose: 650 mg Documented by: Albuterol (Albut/Ipratrop 3mg/0.5mg Neb 3 Ml Vial) 3 ml NEB Q4R PRN PRN Reason: Shortness Of Breath Or Wheezing Stop: 05/09/20 08:45 Allopurinol (Allopurinol 100 Mg Tab) 100 mg PO DAILY [facility] Stop: 05/09/20 08:59 Last Admin: 04/19/20 08:19 Dose: 100 mg Documented by: Amlodipine Besylate (Amlodipine Besylate 5 Mg Tab) 10 mg PO QAM [facility] Stop: 05/13/20 08:59 Last Admin: 04/19/20 08:19 Dose: 10 mg Documented by: Calcitriol (Calcitriol 0.25 Mcg Capsule) 0.5 mcg PO QAM ELENI Stop: 05/11/20 08:59 Last Admin: 04/19/20 08:20 Dose: 0.5 mcg Documented by: Calcium Acetate (Calcium Acetate 667 Mg Cap/Tab) 667 mg PO TIDM ELENI Stop: 05/14/20 11:59 Last Admin: 04/19/20 11:49 Dose: 667 mg Documented by: Dextrose (Dextrose 50% 50 Ml Syringe) 25 - 50 ml IV UD PRN; Protocol PRN Reason: Hypoglycemia Protocol Stop: 05/09/20 01:57 Diphenhydramine HCl (Diphenhydramine 50 Mg/Ml Vial) 12.5 mg IV Q6 PRN PRN Reason: nausea,vertigo Stop: 05/11/20 10:42 Last Admin: 04/17/20 08:24 Dose: 12.5 mg Documented by: Ferrous Sulfate (Ferrous Sulfate 325 Mg Tab) 325 mg PO DAILY ELENI Stop: 05/09/20 08:59 Last Admin: 04/19/20 08:20 Dose: 325 mg Documented by: Glucagon (Glucagon For Inj 1 Mg Vial) 1 mg SQ UD PRN; Protocol PRN Reason: Hypoglycemia Protocol Stop: 05/09/20 01:57 Glucose (Glucose 10 Tabs/Tube) 4 - 8 tabs PO UD PRN; Protocol PRN Reason: Hypoglycemia Protocol Stop: 05/09/20 01:57 Glucose (Glucose 40% Gel 15 Gm Tube) 15 - 30 gm PO UD PRN; Protocol PRN Reason: Hypoglycemia Protocol Stop: 05/09/20 01:57 Guaifenesin/Dextromethorphan (Guaifenesin/Dextrom Syrup 100mg/10mg 5ml Udc) 5 ml PO Q6H PRN PRN Reason: Cough Stop: 05/14/20 22:17 Last Admin: 04/19/20 11:48 Dose: 5 ml Documented by: Heparin Sodium (Porcine) (Heparin Sod 5,000 Unit/0.5 Ml Vial) 7,500 units SQ Q8 ELENI Stop: 05/09/20 05:59 Last Admin: 04/19/20 12:45 Dose: 7,500 units Documented by: Hydralazine HCl (Hydralazine Hcl 20 Mg/Ml Vial) 10 mg IV Q4H PRN PRN Reason: Blood Pressure - High Stop: 05/09/20 03:02 Last Admin: 04/16/20 00:13 Dose: 10 mg Documented by: Insulin Aspart (Insulin Aspart 100 Units/Ml 3 Ml Pen) 0 units SC ACHS [facility] Stop: 05/19/20 07:29 Last Admin: 04/19/20 12:43 Dose: 9 units Documented by: Magnesium Hydroxide (Magnesium Hydroxide Susp 30 Ml Udc) 30 ml PO Q12H PRN PRN Reason: Constipation Stop: 05/09/20 01:57 Metoprolol Tartrate (Metoprolol Tartrate 1 Mg/Ml Vial) 5 mg IV Q4 PRN PRN Reason: Blood Pressure - High Stop: 05/09/20 03:59 Last Admin: 04/14/20 03:59 Dose: 5 mg Documented by: Miscellaneous (Carbohydrates For Hypoglycemia ) 15 - 30 gm PO UD PRN PRN Reason: Hypoglycemia Protocol Stop: 05/09/20 01:57 Miscellaneous Information (Pharmacy Glycemic Mgmt Consult) 1 ea N/A UD PRN PRN Reason: Consult Stop: 05/15/20 17:12 Ondansetron HCl (Ondansetron Inj 2 Mg/Ml 2 Ml Vial) 4 mg IV Q6H PRN PRN Reason: Nausea Stop: 05/09/20 01:57 Last Admin: 02/10/21 09:20 Dose: 4 mg Documented by: Pantoprazole Sodium (Pantoprazole 40 Mg Tab) 40 mg PO DAILY [facility] Stop: 05/09/20 08:59 Last Admin: 04/19/20 08:19 Dose: 40 mg Documented by: Rosuvastatin Calcium (Rosuvastatin Calcium 10 Mg Tab) 10 mg PO DAILY [facility] Stop: 05/09/20 08:59 Last Admin: 04/19/20 08:19 Dose: 10 mg Documented by: Tramadol HCl (Tramadol Hcl 50 Mg Tablet) 50 mg PO Q4H PRN PRN Reason: Pain Stop: 05/17/20 11:23 Last Admin: 04/17/20 13:01 Dose: 50 mg Documented by: Vitamin B Complex/Folic Acid (Nephrocaps) 1 cap PO QAM [facility] Stop: 05/11/20 08:59 Last Admin: 04/19/20 08:19 Dose: 1 cap Documented by: PG Care Time/CCT Total # of Minutes Spent Total Time Spent with Patient: Total time spent is greater than 50% in coordination of care (as documented) at patient's floor/unit and/or counseling patient: Coding Level of Care Code 31583 Subseq Hosp Care Lvl 2 Diagnoses ESRD needing dialysis N18.6; Z99.2 Pneumonia due to COVID-19 virus U07.1; J12.82 Hypoxia R09.02 Hypokalemia E87.6 Diabetes mellitus with hyperglycemia E11.65 Anemia D64.9 Anemia type: unspecified type Hypocalcemia E83.51 Nausea & vomiting R11.2 Hypoalbuminemia E88.09 Homelessness Z59.0 Hypomagnesemia E83.42 GERD (gastroesophageal reflux disease) K21.9 Hypertension I10 Vertigo R42 DVT prophylaxis Z29.9 (1) Anemia Anemia type: unspecified type Qualified Code(s): D64.9 - Anemia, unspecified
[2020-04-20] MEDS: guaiFENesin/DEXTROM SYRUP 100MG/10MG 5ML UDC PO PRN ×2 (05:31→21:05)
[2020-04-20] MEDS: HEPARIN SOD 5,000 UNIT/0.5 ML VIAL SQ SCH ×3 (05:31→20:42)
[2020-04-20 07:03] LABS: Hemoglobin 9.3 g/dL (14.0-18.0)
[2020-04-20 07:43] LABS: BUN Creatinine Ratio 7.3 (10-20); Calcium 7.2 mg/dl (8.5-10.1); Creatinine Clr Calc Pharmacy 11.3 ml/min; Est GFR (African American) 7.4; Est GFR (Non-African American) 6.4; Potassium 4.5 mmol/L (3.5-5.1)
[2020-04-20] MEDS: CALCIUM ACETATE 667 MG CAP/TAB PO SCH ×3 (08:20→17:32)
[2020-04-20] MEDS: FERROUS SULFATE 325 MG TAB PO SCH (08:20)
[2020-04-20] MEDS: amLODIPine BESYLATE 5 MG TAB PO SCH (08:21)
[2020-04-20] MEDS: CALCITRIOL 0.25 MCG CAPSULE PO SCH (08:22)
[2020-04-20] MEDS: ROSUVASTATIN CALCIUM 10 MG TAB PO SCH (08:22)
[2020-04-20] MEDS: NEPHROCAPS PO SCH (08:22)
[2020-04-20] MEDS: PANTOprazole 40 MG TAB PO SCH (08:22)
[2020-04-20] MEDS: allopurinoL 100 MG TAB PO SCH (08:23)
[2020-04-20] MEDS: INSULIN ASPART 100 UNITS/ML 3 ML PEN SC SCH ×4 (08:26→21:13)
--- NOTE | 2020-04-20 14:55 | Hospitalist Progress Note ---
Date of Service April 20, 2020 Assessment & Plan (1) ESRD needing dialysis: Presented with a creatinine of 16, BUN 125 with severe volume overload and respiratory failure as well as hypertensive urgency With a history of CKD stage IV-V in the past and no ongoing medical care for the last year due to having no insurance Had temporary dialysis catheter placed on 04/09 by rubber mill operator received hemodialysis on 04/09, and 04/10, 04/11, and 04/12-tolerated well Electrolytes are all much improved, remains hypertensive but much improved, volume overload also much improved but persists with 2+ pitting edema of lower extremities and abdominal distention -Hypoxia resolved and pulmonary edema much improved on examination Presented with metabolic acidosis, hypocalcemia, and severe anemia as below. All now improving/resolved Appreciate nephrology consultation PermCath placement on 04/[address] Mayo HD on 04/16, 04/18 and 04/20 Due to hypocalcemia, nephrology changed sevelamer to PhosLo instead -Started Nephrocaps, receiving IV iron x5 doses and Epogen x1 -Started calcitriol 0.5 mcg once daily -Renally dose medications for GFR less than 10 -Renal diet, fluid restrict to 1500 mL/day difficult social situation, he is essentially homeless, need to determine living arrangements prior to outpatient HD [place] [facility] [place], will get transport to outpatient HD clinic and then will transfer up to [facility] for continued rehab office of aging will help with trying to set up housing plan for d/c on Thursday, will get HD on Monday 04/24 in [place] dialysis unit (2) Pneumonia due to COVID-19 virus: Pneumonia due to COVID-19 virus with hypoxia-initially required BiPAP and is now weaned to room air on 04/14 after volume removal with IV Lasix as well as hemodialysis and starting dexamethasone Continue dexamethasone 6 mg IV every morning [id number], completed on 04/17/2020 breathing well, no cough Completed a 5-day course of azithromycin Completed Zosyn x7-day course-last dose on 04/15 (3) Hypoxia: With acute respiratory failure with hypoxia See above, secondary to volume overload from renal failure as well as Covid-19 pneumonia Resolved, breathing room air for the past week (4) Hypokalemia: Potassium 4.5 today prior to HD allow more K in diet (5) Diabetes mellitus with hyperglycemia: Hold glimepiride from home and would not restart in the setting of ESRD Blood sugars were better controlled but now with significantly worsening hyperglycemia now that he is eating more and on dexamethasone, persists despite adding Lantus Continue Accu-Cheks before meals and at bedtime with NovoLog coverage per scale Hemoglobin A1c 5.4% but is likely inaccurate in the setting of severe anemia and renal failure sugars well controlled all day (6) Anemia: Hemoglobin remained at 7.2 despite 1 unit PRBCs on 04/09, but is now up to 9.9 on 04/18 and stable after 2 more units of PRBCs on 04/10 and IV iron as well as Epogen No gross bleeding from anywhere. Most likely secondary to anemia of chronic kidney disease Transferrin saturation 20% B12 is normal, folate low normal at 6 Nephrology ordered 5 doses of IV Venofer Continue p.o. ferrous sulfate Started Nephrocaps with folate (7) Hypocalcemia: Calcium level severely low at 5.5 on admission here but now normal after several days of correction with IV calcium gluconate Changed sevelamer to PhosLo which has calcium in it This is secondary to severe renal failure Follow calcium and albumin levels (8) Nausea & vomiting: As above, likely secondary to BPPV as well as uremia and Covid-19 Now resolved, lauryn reg diet (9) Hypoalbuminemia: Secondary to acute illness and poor nutrition He was given IV albumin initially upon admission (10) Homelessness: He mostly lives out of his truck but does sleep at his sister's house although he reports his sister officially evicted him today while he was in the hospital Case management is involved and he has been given information on emergency housing after discharge will go to SNF for rehab and outpatient HD services area office of aging will help with living situation (11) Hypomagnesemia: Replaced Resolved (12) GERD (gastroesophageal reflux disease): No acute issues Continue home Protonix (13) Hypertension: Blood pressures were quite elevated secondary to renal failure and volume overload--> NOW much improved Continue amlodipine, IV hydralazine as needed -continue increased dose of amlodipine to 10 mg -add Hydralazine 25mg TID starting today, may titrate up as needed (14) Vertigo: With intermittent vertigo causing nausea and vomiting which comes on with changes in position. He reports this is a chronic issue May be worsened by volume overload Now resolved, received 1 dose of IV Benadryl and stopped Nitropaste -Continue IV Benadryl as needed for nausea and vertigo-has not needed any in many days Would avoid benzodiazepines given severe renal failure Antiemetics with Zofran as needed (15) DVT prophylaxis: Heparin SQ Disposition-continued stay on PCU, slowly improving, expect discharge possibly to rehab on Thursday after perm cath placement and HD on Thursday. Case management is following. Admission and Anticipated Discharge Date Admission Date: April 09, 2020 Subjective patient feels well, completed HD this morning, edema in legs is decreased no dyspnea, no cough, no GI symptoms BP is elevated, 170-180 systolic will add Hydralazine 25mg TID, can titrate up as needed plan is to go to SNF on Thursday, he understands and agrees no other complaints Review of Systems Review of Systems: All systems reviewed & are unremarkable except as noted in Subjective Physical Exam Constitutional: WD/WN, vitals as above + overweight Neck: trachea midline, no thyromegaly Respiratory: normal respiratory effort, lungs clear to auscultation Cardiovascular: RRR, no murmur, no edema Rate/Rhythm: regular rate and regular rhythm Heart Sounds: normal S1 and normal S2; no murmur Vessels: no JVD Extremities: normal capillary refill and + edema Gastrointestinal (Abdomen): normal bowel sounds, soft, nontender, no hepatosplenomegaly Musculoskeletal: no cyanosis or clubbing, extremities motor strength 5/5 Skin: no rashes, warm and dry Neurologic: patellar DTR's 2+ bilat, sensation intact and PERRL, EOMI, accommodation nl, no face palsy, no dysarthria Psychiatric: A+Ox3, euthymic affect Lymphatic: no cervical or axillary lymphadenopathy Results & Data Results & Data ([facility]) Vital Signs (Past 12 Hours) Vital Signs Temp Pulse Pulse Pulse Resp BP BP 04/20/20 14:30 04/20/20 13:30 37.1 C 89 04/20/20 13:25 36.6 C 99 H 16 187/75 H 04/20/20 13:00 94 H 164/82 H 04/20/20 12:40 93 H 157/83 H 04/20/20 12:20 92 H 158/77 H 04/20/20 12:00 100 H 149/77 H 04/20/20 11:40 97 H 144/75 H 04/20/20 11:20 98 H 148/77 H 04/20/20 11:00 97 H 150/78 H 04/20/20 10:40 99 H 135/74 04/20/20 10:20 100 H 131/68 04/20/20 10:00 96 H 138/70 04/20/20 09:40 92 H 168/71 H 04/20/20 09:32 37.2 C 99 H 04/20/20 07:48 37.3 C 99 H 18 171/86 H BP Pulse Ox 04/20/20 14:30 174/82 H 04/20/20 13:30 174/83 H 04/20/20 13:25 95 04/20/20 13:00 04/20/20 12:40 04/20/20 12:20 04/20/20 12:00 04/20/20 11:40 04/20/20 11:20 04/20/20 11:00 04/20/20 10:40 04/20/20 10:20 04/20/20 10:00 04/20/20 09:40 04/20/20 09:32 04/20/20 07:48 93 Laboratory Results Laboratory Results - last 24 hr 04/19/20 04/19/20 04/20/20 17:07 20:30 06:21 Hgb 9.3 L Hct 28.0 L Sodium Potassium Chloride Carbon Dioxide Anion Gap BUN Creatinine Est Cr Clr Drug Dosing Est GFR ( Amer) Est GFR (Non-Af Amer) BUN/Creatinine Ratio Glucose POC Glucose 125 H 118 H Calcium 04/20/20 04/20/20 04/20/20 06:21 08:19 13:26 Hgb Hct Sodium 136 Potassium 4.5 D Chloride 102 Carbon Dioxide 21 Anion Gap 13.0 H BUN 60 H Creatinine 8.11 H* Est Cr Clr Drug Dosing 11.3 Est GFR ( Amer) 7.4 Est GFR (Non-Af Amer) 6.4 BUN/Creatinine Ratio 7.3 L Glucose 112 H POC Glucose 103 H 127 H Calcium 7.2 L Medications Administered Current Inpatient Medications Acetaminophen (Acetaminophen 325 Mg Tab) 650 mg PO Q4H PRN PRN Reason: Pain or Fever Stop: 05/09/20 01:57 Last Admin: 04/19/20 19:33 Dose: 650 mg Documented by: Albuterol (Albut/Ipratrop 3mg/0.5mg Neb 3 Ml Vial) 3 ml NEB Q4R PRN PRN Reason: Shortness Of Breath Or Wheezing Stop: 05/09/20 08:45 Allopurinol (Allopurinol 100 Mg Tab) 100 mg PO DAILY [facility], [facility]1983 Stop: 05/09/20 08:59 Last Admin: 04/20/20 08:23 Dose: 100 mg Documented by: Amlodipine Besylate (Amlodipine Besylate 5 Mg Tab) 10 mg PO QAM [facility], [facility]1983 Stop: 05/13/20 08:59 Last Admin: 04/20/20 08:21 Dose: Not Given Documented by: Calcitriol (Calcitriol 0.25 Mcg Capsule) 0.5 mcg PO QAM [facility], [facility]1983 Stop: 05/11/20 08:59 Last Admin: 04/20/20 08:22 Dose: 0.5 mcg Documented by: Calcium Acetate (Calcium Acetate 667 Mg Cap/Tab) 667 mg PO TIDM [facility], [facility]1983 Stop: 05/14/20 11:59 Last Admin: 04/20/20 11:52 Dose: Not Given Documented by: Dextrose (Dextrose 50% 50 Ml Syringe) 25 - 50 ml IV UD PRN; Protocol PRN Reason: Hypoglycemia Protocol Stop: 05/09/20 01:57 Diphenhydramine HCl (Diphenhydramine 50 Mg/Ml Vial) 12.5 mg IV Q6 PRN PRN Reason: nausea,vertigo Stop: 05/11/20 10:42 Last Admin: 04/17/20 08:24 Dose: 12.5 mg Documented by: Ferrous Sulfate (Ferrous Sulfate 325 Mg Tab) 325 mg PO DAILY [facility]1983 Stop: 05/09/20 08:59 Last Admin: 04/20/20 08:20 Dose: 325 mg Documented by: Glucagon (Glucagon For Inj 1 Mg Vial) 1 mg SQ UD PRN; Protocol PRN Reason: Hypoglycemia Protocol Stop: 05/09/20 01:57 Glucose (Glucose 10 Tabs/Tube) 4 - 8 tabs PO UD PRN; Protocol PRN Reason: Hypoglycemia Protocol Stop: 05/09/20 01:57 Glucose (Glucose 40% Gel 15 Gm Tube) 15 - 30 gm PO UD PRN; Protocol PRN Reason: Hypoglycemia Protocol Stop: 05/09/20 01:57 Guaifenesin/Dextromethorphan (Guaifenesin/Dextrom Syrup 100mg/10mg 5ml Udc) 5 ml PO Q6H PRN PRN Reason: Cough Stop: 05/14/20 22:17 Last Admin: 04/20/20 05:31 Dose: 5 ml Documented by: Heparin Sodium (Porcine) (Heparin Sod 5,000 Unit/0.5 Ml Vial) 7,500 units SQ Q8 ELENI Stop: 05/09/20 05:59 Last Admin: 04/20/20 13:14 Dose: Not Given Documented by: Hydralazine HCl (Hydralazine Hcl 20 Mg/Ml Vial) 10 mg IV Q4H PRN PRN Reason: Blood Pressure - High Stop: 05/09/20 03:02 Last Admin: 04/16/20 00:13 Dose: 10 mg Documented by: Hydralazine HCl (Hydralazine Hcl 25 Mg Tab) 25 mg PO TID [facility], [facility] Stop: 05/20/20 14:44 Insulin Aspart (Insulin Aspart 100 Units/Ml 3 Ml Pen) 0 units SC ACHS [facility], [facility] Stop: 05/19/20 07:29 Last Admin: 04/20/20 11:52 Dose: Not Given Documented by: Magnesium Hydroxide (Magnesium Hydroxide Susp 30 Ml Udc) 30 ml PO Q12H PRN PRN Reason: Constipation Stop: 05/09/20 01:57 Metoprolol Tartrate (Metoprolol Tartrate 1 Mg/Ml Vial) 5 mg IV Q4 PRN PRN Reason: Blood Pressure - High Stop: 05/09/20 03:59 Last Admin: 04/14/20 03:59 Dose: 5 mg Documented by: Miscellaneous (Carbohydrates For Hypoglycemia ) 15 - 30 gm PO UD PRN PRN Reason: Hypoglycemia Protocol Stop: 05/09/20 01:57 Miscellaneous Information (Pharmacy Glycemic Mgmt Consult) 1 ea N/A UD PRN PRN Reason: Consult Stop: 05/15/20 17:12 Ondansetron HCl (Ondansetron Inj 2 Mg/Ml 2 Ml Vial) 4 mg IV Q6H PRN PRN Reason: Nausea Stop: 05/09/20 01:57 Last Admin: 04/11/20 09:20 Dose: 4 mg Documented by: Pantoprazole Sodium (Pantoprazole 40 Mg Tab) 40 mg PO DAILY ELENI Stop: 05/09/20 08:59 Last Admin: 04/20/20 08:22 Dose: 40 mg Documented by: Rosuvastatin Calcium (Rosuvastatin Calcium 10 Mg Tab) 10 mg PO DAILY ELENI Stop: 05/09/20 08:59 Last Admin: 04/20/20 08:22 Dose: 10 mg Documented by: Tramadol HCl (Tramadol Hcl 50 Mg Tablet) 50 mg PO Q4H PRN PRN Reason: Pain Stop: 05/17/20 11:23 Last Admin: 04/17/20 13:01 Dose: 50 mg Documented by: Vitamin B Complex/Folic Acid (Nephrocaps) 1 cap PO QAM ELENI Stop: 05/11/20 08:59 Last Admin: 04/20/20 08:22 Dose: 1 cap Documented by: PG Care Time/CCT Total # of Minutes Spent Total Time Spent with Patient: Total time spent is greater than 50% in coordination of care (as documented) at patient's floor/unit and/or counseling patient: Coding Level of Care Code 63690 Subseq Hosp Care Lvl 2 Diagnoses ESRD needing dialysis N18.6; Z99.2 Pneumonia due to COVID-19 virus U07.1; J12.82 Hypoxia R09.02 Hypokalemia E87.6 Diabetes mellitus with hyperglycemia E11.65 Anemia D64.9 Anemia type: unspecified type Hypocalcemia E83.51 Nausea & vomiting R11.2 Hypoalbuminemia E88.09 Homelessness Z59.0 Hypomagnesemia E83.42 GERD (gastroesophageal reflux disease) K21.9 Hypertension I10 Vertigo R42 DVT prophylaxis Z29.9 (1) Anemia Anemia type: unspecified type Qualified Code(s): D64.9 - Anemia, unspecified
[2020-04-20] MEDS: hydrALAZINE HCL 25 MG TAB PO SCH ×2 (14:56→20:37)
--- NOTE | 2020-04-20 16:04 | Nephrology Progress Note ---
Date of Service April 20, 2020 Assessment & Plan (1) ESRD needing dialysis: HD MWF. Orders for today's treatment reviewed with HD nurse. Librado was evaluated during HD. Qb at goal. BP acceptable. Potential discharge to [facility] this or Thursday. Plan to start HD at [facility] in isolation unit next week. Started on hemodialysis on 04/09/[address] via temporary dialysis catheter. Dr. Mayo placed permcath 04/16. Medications are appropriately dosed for kidney function. (2) Anemia: s/p PRBC transfusion support x 3 u. Venofer 200 mg IV x 5 doses completed. Epogen 41810 units given on 04/10. Additional Epogen 4000 units 04/16. (3) Hypocalcemia: CKD/MBD with sPTH. Calcium acetate QAC for hyperphos. Calcitriol 0.5 QAM. (4) Fluid overload: Improving with HD. Low sodium diet and fluid restriction <1.5 L/d. (5) Pneumonia due to COVID-19 virus: Will require HD at [facility] in isolation for 21 days post + swab on 04/05. Admission and Anticipated Discharge Date Admission Date: April 09, 2020 Subjective No acute events overnight. Librado was seen and evaluated in his hospital room this AM. No complaints. I also reviewed potential discharge plan with the outpa tient [facility] unit in [place]. Review of Systems Review of Systems: All systems reviewed & are unremarkable except as noted in HPI & below Physical Exam Constitutional: well developed; no acute distress Eyes: no scleral abnormality and no corneal abnormality ENMT: Mouth: no oral mucosal abnormality and oral mucous membranes not dry Neck: normal visual inspection and trachea midline Respiratory: normal respiratory effort Auscultation: lungs clear to auscultation bilaterally Cardiovascular: Rate/Rhythm: regular rate Heart Sounds: normal S1 and normal S2 Extremities: no edema Musculoskeletal: Extremities: no cyanosis and no clubbing Skin: normal turgor; no lesions Neurologic: Motor/Sensory: no tremor and no asterixis Psychiatric: Orientation: alert and oriented x 3 Results & Data ([facility]) Vital Signs (Past 12 Hours) Vital Signs Temp Pulse Pulse Pulse Resp BP BP 04/20/20 15:26 37 C 98 H 18 147/62 H 04/20/20 14:30 04/20/20 13:30 37.1 C 89 04/20/20 13:25 36.6 C 99 H 16 187/75 H 04/20/20 13:00 94 H 164/82 H 04/20/20 12:40 93 H 157/83 H 04/20/20 12:20 92 H 158/77 H 04/20/20 12:00 100 H 149/77 H 04/20/20 11:40 97 H 144/75 H 04/20/20 11:20 98 H 148/77 H 04/20/20 11:00 97 H 150/78 H 04/20/20 10:40 99 H 135/74 04/20/20 10:20 100 H 131/68 04/20/20 10:00 96 H 138/70 04/20/20 09:40 92 H 168/71 H 04/20/20 09:32 37.2 C 99 H 04/20/20 07:48 37.3 C 99 H 18 171/86 H BP Pulse Ox 04/20/20 15:26 95 04/20/20 14:30 174/82 H 04/20/20 13:30 174/83 H 04/20/20 13:25 95 04/20/20 13:00 04/20/20 12:40 04/20/20 12:20 04/20/20 12:00 04/20/20 11:40 04/20/20 11:20 04/20/20 11:00 04/20/20 10:40 04/20/20 10:20 04/20/20 10:00 04/20/20 09:40 04/20/20 09:32 04/20/20 07:48 93 Laboratory Results Laboratory Results - last 24 hr 04/19/20 04/19/20 04/20/20 17:07 20:30 06:21 Hgb 9.3 L Hct 28.0 L Sodium Potassium Chloride Carbon Dioxide Anion Gap BUN Creatinine Est Cr Clr Drug Dosing Est GFR ( Amer) Est GFR (Non-Af Amer) BUN/Creatinine Ratio Glucose POC Glucose 125 H 118 H Calcium 04/20/20 04/20/20 04/20/20 06:21 08:19 13:26 Hgb Hct Sodium 136 Potassium 4.5 D Chloride 102 Carbon Dioxide 21 Anion Gap 13.0 H BUN 60 H Creatinine 8.11 H* Est Cr Clr Drug Dosing 11.3 Est GFR ( Amer) 7.4 Est GFR (Non-Af Amer) 6.4 BUN/Creatinine Ratio 7.3 L Glucose 112 H POC Glucose 103 H 127 H Calcium 7.2 L PG Care Time/CCT Total # of Minutes Spent Total Time Spent with Patient: Total time spent is greater than 50% in coordination of care (as documented) at patient's floor/unit and/or counseling patient: Coding Level of Care Code 93258 Subseq Hosp Care Lvl 3 Diagnoses ESRD needing dialysis N18.6; Z99.2 Anemia D64.9 Anemia type: unspecified type Hypocalcemia E83.51 Fluid overload E87.70 Hypervolemia type: unspecified Pneumonia due to COVID-19 virus U07.1; J12.82 (1) Anemia Anemia type: unspecified type Qualified Code(s): D64.9 - Anemia, unspecified (2) Fluid overload Hypervolemia type: unspecified Qualified Code(s): E87.70 - Fluid overload, unspecified
[2020-04-20] MEDS: ACETAMINOPHEN 325 MG TAB PO PRN (20:41)
[2020-04-21] MEDS: HEPARIN SOD 5,000 UNIT/0.5 ML VIAL SQ SCH ×3 (06:07→21:22)
[2020-04-21] MEDS: guaiFENesin/DEXTROM SYRUP 100MG/10MG 5ML UDC PO PRN ×3 (06:09→21:20)
[2020-04-21] MEDS: traMADol HCL 50 MG TABLET PO PRN ×2 (06:10→21:20)
[2020-04-21] MEDS: CALCITRIOL 0.25 MCG CAPSULE PO SCH (08:12)
[2020-04-21] MEDS: amLODIPine BESYLATE 5 MG TAB PO SCH (08:13)
[2020-04-21] MEDS: NEPHROCAPS PO SCH (08:13)
[2020-04-21] MEDS: ROSUVASTATIN CALCIUM 10 MG TAB PO SCH (08:13)
[2020-04-21] MEDS: FERROUS SULFATE 325 MG TAB PO SCH (08:13)
[2020-04-21] MEDS: CALCIUM ACETATE 667 MG CAP/TAB PO SCH ×3 (08:13→17:33)
[2020-04-21] MEDS: allopurinoL 100 MG TAB PO SCH (08:13)
[2020-04-21] MEDS: PANTOprazole 40 MG TAB PO SCH (08:13)
[2020-04-21] MEDS: hydrALAZINE HCL 25 MG TAB PO SCH ×3 (08:13→21:21)
[2020-04-21] MEDS: INSULIN ASPART 100 UNITS/ML 3 ML PEN SC SCH ×4 (09:24→20:56)
--- NOTE | 2020-04-21 10:08 | Nephrology Progress Note ---
Date of Service April 21, 2020 Assessment & Plan (1) ESRD needing dialysis: * Potential discharge to [facility] this or Thursday. Plan to start HD at [facility] in isolation unit next week. * Started on hemodialysis on 04/09/2020 via temporary dialysis catheter. Dr. Leonel parks placed permcath 04/16. (2) Anemia: * s/p 3 units PRBC this hospitalization * Venofer 200 mg IV x 5 doses recently completed * Epogen 58047 units given on 04/10. Additional Epogen 4000 units 04/16 (3) Hypocalcemia: * CKD/MBD with sPTH * Started Ca Acetate qAC for treatment of hyperphosphatemia * Started Calcitriol 0.5 QAM (4) Fluid overload: * Improving with HD * Recommend low sodium/HD diet and fluid restriction <1.5 L/d (5) Pneumonia due to COVID-19 virus: * Will require HD at [facility] in isolation for 21 days post + swab on 04/05 Admission and Anticipated Discharge Date Admission Date: April 09, 2020 Subjective Mr. Moon was seen & examined in his hospital room this morning. He is br eathing comfortably on room air. His only complaint is mild fatigue. Mr. Moon's last HD treatment was yesterday via IJ THC. There were no complications. 2 L UF obtained. Review of Systems Constitutional: + weakness; no fever Eyes: no problem reported Ear, Nose, Mouth, Throat: no problem reported Respiratory: no cough and no dyspnea Cardiovascular: + edema; no chest pain and no palpitations Gastrointestinal: no abdominal pain, no nausea and no diarrhea/loose stools Musculoskeletal: no back pain Integumentary: no rash Neurologic: no confusion Physical Exam Constitutional: no acute distress Eyes: no scleral abnormality and no corneal abnormality ENMT: Mouth: no oral mucosal abnormality and oral mucous membranes not dry Neck: normal visual inspection and trachea midline Respiratory: normal respiratory effort Auscultation: lungs clear to auscultation bilaterally Cardiovascular: Rate/Rhythm: regular rate Heart Sounds: normal S1 and normal S2 Extremities: + edema (1+ pretibial pitting edema) Psychiatric: Orientation: alert and oriented x 3 Results & Data ([facility]) Vital Signs (Past 12 Hours) Vital Signs Temp Pulse Resp BP Pulse Ox 04/21/20 07:15 36.7 C 96 H 18 130/71 95 04/20/20 22:39 36.9 C 89 18 129/71 97 PG Care Time/CCT Total # of Minutes Spent Total Time Spent with Patient: Total time spent is greater than 50% in coordination of care (as documented) at patient's floor/unit and/or counseling patient: Coding Level of Care Code 18608 Subseq Hosp Care Lvl 3 Diagnoses ESRD needing dialysis N18.6; Z99.2 Anemia D64.9 Anemia type: unspecified type Hypocalcemia E83.51 Fluid overload E87.70 Hypervolemia type: unspecified Pneumonia due to COVID-19 virus U07.1; J12.82 (1) Anemia Anemia type: unspecified type Qualified Code(s): D64.9 - Anemia, unspecified (2) Fluid overload Hypervolemia type: unspecified Qualified Code(s): E87.70 - Fluid overload, unspecified
--- NOTE | 2020-04-21 11:21 | Pharmacy Report ---
Pharmacy Glycemic Short Note 2 - Date of Service April 21, 2020 - Glycemic Short BSG Results (Last 24 hours): 04/20/20 04/20/20 04/20/20 13:26 16:57 20:32 POC Glucose 127 H 138 H 127 H 04/21/20 08:15 POC Glucose 110 H OUTPATIENT ANTIDIABETIC REGIMEN: * Glimepiride 2mg daily ASSESSMENT: 04/21/20 * Since dexamethasone discontinued, patient has required only prandial coverage. * Fasting BSG is 110 mg/dL which is within goal range. Continue no basal. * All BSGs below 140 mg/dL continue current Novolog. PLAN FOR INPATIENT GLYCEMIC CONTROL: * Hold outpatient oral diabetes medications * Bolus insulin * NovoLog per scale ACHS or Q4h * Goal Range: Low 110 mg/dL - High 140 mg/dL * Correction Factor: 25 mg/dL/unit * Nutritional / Prandial insulin per carb ratio of 1 unit per 8 grams CHO consumed Recommendations for discharge * Patient is on hemodialysis as an outpatient so HbA1C is not always indicative of true glycemic control. * Recommend monitoring BSGs as an outpatient and then adjusting regimen as appropriate.
--- NOTE | 2020-04-21 13:37 | Hospitalist Progress Note ---
Date of Service April 21, 2020 Assessment & Plan (1) ESRD needing dialysis: Presented with a creatinine of 16, BUN 125 with severe volume overload and respiratory failure as well as hypertensive urgency With a history of CKD stage IV-V in the past and no ongoing medical care for the last year due to having no insurance Had temporary dialysis catheter placed on 04/09 by cutter barrel drum received hemodialysis on 04/09, and 04/10, 04/11, and 04/12-tolerated well Electrolytes are all much improved, remains hypertensive but much improved, volume overload also much improved but persists with 2+ pitting edema of lower extremities and abdominal distention -Hypoxia resolved and pulmonary edema much improved on examination Presented with metabolic acidosis, hypocalcemia, and severe anemia as below. All now improving/resolved Appreciate nephrology consultation PermCath placement on 04/[address] Mayo HD on 04/16, 04/18 and 04/20 Due to hypocalcemia, nephrology changed sevelamer to PhosLo instead -Started Nephrocaps, receiving IV iron x5 doses and Epogen x1 -Started calcitriol 0.5 mcg once daily -Renally dose medications for GFR less than 10 -Renal diet, fluid restrict to 1500 mL/day difficult social situation, he is essentially homeless, need to determine living arrangements prior to outpatient HD plan to go to [facility], will get transport to outpatient HD clinic and then will transfer up to [facility] for continued rehab office of aging will help with trying to set up housing plan for d/c on Thursday, will get HD on Monday 04/24 in [facility] unit (2) Pneumonia due to COVID-19 virus: Pneumonia due to COVID-19 virus with hypoxia-initially required BiPAP and is now weaned to room air on 04/14 after volume removal with IV Lasix as well as hemodialysis and starting dexamethasone Continue dexamethasone 6 mg IV every morning [id number], completed on 04/17/2020 breathing well, no cough Completed a 5-day course of azithromycin Completed Zosyn x7-day course-last dose on 04/15 (3) Hypoxia: With acute respiratory failure with hypoxia See above, secondary to volume overload from renal failure as well as Covid-19 pneumonia Resolved, breathing room air for the past week (4) Hypokalemia: Potassium 4.5 yesterday allow more K in diet (5) Diabetes mellitus with hyperglycemia: Hold glimepiride from home and would not restart in the setting of ESRD Blood sugars were better controlled but now with significantly worsening hyperglycemia now that he is eating more and on dexamethasone, persists despite adding Lantus Continue Accu-Cheks before meals and at bedtime with NovoLog coverage per scale Hemoglobin A1c 5.4% but is likely inaccurate in the setting of severe anemia and renal failure sugars well controlled today (6) Anemia: Hemoglobin remained at 7.2 despite 1 unit PRBCs on 04/09, but is now up to 9.9 on 04/18 and stable after 2 more units of PRBCs on 04/10 and IV iron as well as Epogen No gross bleeding from anywhere. Most likely secondary to anemia of chronic kidney disease Transferrin saturation 20% B12 is normal, folate low normal at 6 Nephrology ordered 5 doses of IV Venofer Continue p.o. ferrous sulfate Started Nephrocaps with folate (7) Hypocalcemia: Calcium level severely low at 5.5 on admission here but now normal after several days of correction with IV calcium gluconate Changed sevelamer to PhosLo which has calcium in it This is secondary to severe renal failure Follow calcium and albumin levels (8) Nausea & vomiting: As above, likely secondary to BPPV as well as uremia and Covid-19 Now resolved, lauryn reg diet (9) Hypoalbuminemia: Secondary to acute illness and poor nutrition He was given IV albumin initially upon admission (10) Homelessness: He mostly lives out of his truck but does sleep at his sister's house although he reports his sister officially evicted him today while he was in the hospital Case management is involved and he has been given information on emergency housing after discharge will go to SNF for rehab and outpatient HD services area office of aging will help with living situation (11) Hypomagnesemia: Replaced Resolved (12) GERD (gastroesophageal reflux disease): No acute issues Continue home Protonix (13) Hypertension: Blood pressures were quite elevated secondary to renal failure and volume overload--> NOW much improved Continue amlodipine, IV hydralazine as needed -continue increased dose of amlodipine to 10 mg -add Hydralazine 25mg TID, good response today, continue on discharge (14) Vertigo: With intermittent vertigo causing nausea and vomiting which comes on with changes in position. He reports this is a chronic issue May be worsened by volume overload Now resolved, received 1 dose of IV Benadryl and stopped Nitropaste -Continue IV Benadryl as needed for nausea and vertigo-has not needed any in many days Would avoid benzodiazepines given severe renal failure Antiemetics with Zofran as needed (15) DVT prophylaxis: Heparin SQ Disposition-continued stay on PCU, slowly improving, expect discharge possibly to rehab on Thursday after perm cath placement and HD on Thursday. Case management is following. Admission and Anticipated Discharge Date Admission Date: April 09, 2020 Subjective no issues, resting comfortably awaiting discharge to SNF tomorrow Review of Systems Review of Systems: All systems reviewed & are unremarkable except as noted in Subjective Cardiovascular: + edema Physical Exam Constitutional: WD/WN, vitals as above + overweight Neck: trachea midline, no thyromegaly Respiratory: normal respiratory effort, lungs clear to auscultation Cardiovascular: RRR, no murmur, no edema Rate/Rhythm: regular rate and regular rhythm Heart Sounds: normal S1 and normal S2; no murmur Vessels: no JVD Extremities: normal capillary refill and + edema Gastrointestinal (Abdomen): normal bowel sounds, soft, nontender, no hepatosplenomegaly Musculoskeletal: no cyanosis or clubbing, extremities motor strength 5/5 Skin: no rashes, warm and dry Neurologic: patellar DTR's 2+ bilat, sensation intact and PERRL, EOMI, accommodation nl, no face palsy, no dysarthria Psychiatric: A+Ox3, euthymic affect Lymphatic: no cervical or axillary lymphadenopathy Results & Data Results & [facility] ([facility]) Vital Signs (Past 12 Hours) Vital Signs Temp Pulse Resp BP Pulse Ox 04/21/20 07:15 36.7 C 96 H 18 130/71 95 Laboratory Results Laboratory Results - last 24 hr 04/20/20 04/20/20 04/21/20 16:57 20:32 08:15 POC Glucose 138 H 127 H 110 H 04/21/20 11:57 POC Glucose 149 H Medications Administered Current Inpatient Medications Acetaminophen (Acetaminophen 325 Mg Tab) 650 mg PO Q4H PRN PRN Reason: Pain or Fever Stop: 05/09/20 01:57 Last Admin: 04/20/20 20:41 Dose: 650 mg Documented by: Albuterol (Albut/Ipratrop 3mg/0.5mg Neb 3 Ml Vial) 3 ml NEB Q4R PRN PRN Reason: Shortness Of Breath Or Wheezing Stop: 05/09/20 08:45 Allopurinol (Allopurinol 100 Mg Tab) 100 mg PO DAILY [facility] Stop: 05/09/20 08:59 Last Admin: 04/21/20 08:13 Dose: 100 mg Documented by: Amlodipine Besylate (Amlodipine Besylate 5 Mg Tab) 10 mg PO QAM [facility] Stop: 05/13/20 08:59 Last Admin: 04/21/20 08:13 Dose: 10 mg Documented by: Calcitriol (Calcitriol 0.25 Mcg Capsule) 0.5 mcg PO QAM [facility] Stop: 05/11/20 08:59 Last Admin: 04/21/20 08:12 Dose: 0.5 mcg Documented by: Calcium Acetate (Calcium Acetate 667 Mg Cap/Tab) 667 mg PO TIDM [facility] Stop: 05/14/20 11:59 Last Admin: 04/21/20 13:06 Dose: 667 mg Documented by: Dextrose (Dextrose 50% 50 Ml Syringe) 25 - 50 ml IV UD PRN; Protocol PRN Reason: Hypoglycemia Protocol Stop: 05/09/20 01:57 Diphenhydramine HCl (Diphenhydramine 50 Mg/Ml Vial) 12.5 mg IV Q6 PRN PRN Reason: nausea,vertigo Stop: 05/11/20 10:42 Last Admin: 04/17/20 08:24 Dose: 12.5 mg Documented by: Ferrous Sulfate (Ferrous Sulfate 325 Mg Tab) 325 mg PO DAILY [facility] Stop: 05/09/20 08:59 Last Admin: 04/21/20 08:13 Dose: 325 mg Documented by: Glucagon (Glucagon For Inj 1 Mg Vial) 1 mg SQ UD PRN; Protocol PRN Reason: Hypoglycemia Protocol Stop: 05/09/20 01:57 Glucose (Glucose 10 Tabs/Tube) 4 - 8 tabs PO UD PRN; Protocol PRN Reason: Hypoglycemia Protocol Stop: 05/09/20 01:57 Glucose (Glucose 40% Gel 15 Gm Tube) 15 - 30 gm PO UD PRN; Protocol PRN Reason: Hypoglycemia Protocol Stop: 05/09/20 01:57 Guaifenesin/Dextromethorphan (Guaifenesin/Dextrom Syrup 100mg/10mg 5ml Udc) 5 ml PO Q6H PRN PRN Reason: Cough Stop: 05/14/20 22:17 Last Admin: 04/21/20 06:09 Dose: 5 ml Documented by: Heparin Sodium (Porcine) (Heparin Sod 5,000 Unit/0.5 Ml Vial) 7,500 units SQ Q8 [facility] Stop: 05/09/20 05:59 Last Admin: 04/21/20 13:09 Dose: 7,500 units Documented by: Hydralazine HCl (Hydralazine Hcl 20 Mg/Ml Vial) 10 mg IV Q4H PRN PRN Reason: Blood Pressure - High Stop: 05/09/20 03:02 Last Admin: 04/16/20 00:13 Dose: 10 mg Documented by: Hydralazine HCl (Hydralazine Hcl 25 Mg Tab) 25 mg PO TID [facility] Stop: 05/20/20 14:44 Last Admin: 04/21/20 13:06 Dose: 25 mg Documented by: Insulin Aspart (Insulin Aspart 100 Units/Ml 3 Ml Pen) 0 units SC ACHS [facility] Stop: 05/19/20 07:29 Last Admin: 04/21/20 13:12 Dose: 11 units Documented by: Magnesium Hydroxide (Magnesium Hydroxide Susp 30 Ml Udc) 30 ml PO Q12H PRN PRN Reason: Constipation Stop: 05/09/20 01:57 Metoprolol Tartrate (Metoprolol Tartrate 1 Mg/Ml Vial) 5 mg IV Q4 PRN PRN Reason: Blood Pressure - High Stop: 05/09/20 03:59 Last Admin: 04/14/20 03:59 Dose: 5 mg Documented by: Miscellaneous (Carbohydrates For Hypoglycemia ) 15 - 30 gm PO UD PRN PRN Reason: Hypoglycemia Protocol Stop: 05/09/20 01:57 Miscellaneous Information (Pharmacy Glycemic Mgmt Consult) 1 ea N/A UD PRN PRN Reason: Consult Stop: 05/15/20 17:12 Ondansetron HCl (Ondansetron Inj 2 Mg/Ml 2 Ml Vial) 4 mg IV Q6H PRN PRN Reason: Nausea Stop: 05/09/20 01:57 Last Admin: 04/11/20 09:20 Dose: 4 mg Documented by: Pantoprazole Sodium (Pantoprazole 40 Mg Tab) 40 mg PO DAILY [facility] Stop: 05/09/20 08:59 Last Admin: 04/21/20 08:13 Dose: 40 mg Documented by: Rosuvastatin Calcium (Rosuvastatin Calcium 10 Mg Tab) 10 mg PO DAILY [facility] Stop: 05/09/20 08:59 Last Admin: 04/21/20 08:13 Dose: 10 mg Documented by: Tramadol HCl (Tramadol Hcl 50 Mg Tablet) 50 mg PO Q4H PRN PRN Reason: Pain Stop: 05/17/20 11:23 Last Admin: 04/21/20 06:10 Dose: 50 mg Documented by: Vitamin B Complex/Folic Acid (Nephrocaps) 1 cap PO QAM [facility] Stop: 05/11/20 08:59 Last Admin: 04/21/20 08:13 Dose: 1 cap Documented by: PG Care Time/CCT Total # of Minutes Spent Total Time Spent with Patient: Total time spent is greater than 50% in coordination of care (as documented) at patient's floor/unit and/or counseling patient: Coding Level of Care Code 11439 Subseq Hosp Care Lvl 2 Diagnoses ESRD needing dialysis N18.6; Z99.2 Pneumonia due to COVID-19 virus U07.1; J12.82 Hypoxia R09.02 Hypokalemia E87.6 Diabetes mellitus with hyperglycemia E11.65 Anemia D64.9 Anemia type: unspecified type Hypocalcemia E83.51 Nausea & vomiting R11.2 Hypoalbuminemia E88.09 Homelessness Z59.0 Hypomagnesemia E83.42 GERD (gastroesophageal reflux disease) K21.9 Hypertension I10 Vertigo R42 DVT prophylaxis Z29.9 (1) Anemia Anemia type: unspecified type Qualified Code(s): D64.9 - Anemia, unspecified
[2020-04-21] MEDS: ACETAMINOPHEN 325 MG TAB PO PRN (22:40)
[2020-04-21] MEDS ORDERED: FUROSEMIDE 20 MG in SYRINGE 0 ML IV ONE (23:46)
[2020-04-21] MEDS ORDERED: MoRPHine SULFATE 2 MG/ML CARP IV ONE (23:47)
--- NOTE | 2020-04-21 23:58 | Communication Note ---
Date of Service: April 21, 2020 message from nursing regarding patient: increased swelling in legs bilaterally with pain 5/10 and fever >38 X2 given Tylenol. I ordered a CXR, UA, blood cx. and gave Lasix and Morphine. I will continue to follow the vital signs and go to see the patient if he does not improve.
[2020-04-22 00:44] LABS: Appearance Urine Clear (Clear); Bacteria Urine Automated Negative (Negative); Bilirubin Urine Negative (Negative); Blood Urine 2+ (Negative); Color Urine Yellow; Epithelial Cell Urine Auto >30 /lpf (0-5); Glucose Urine UA Trace (Negative); Ketones Urine Negative (Negative); Leukocyte Esterase Urine 1+ (Negative); Nitrite Urine Negative (Negative); Protein Urine 4+ (Negative); Specific Gravity Urine 1.017 (1.000-1.030); Urobilinogen Urine Negative (Negative); WBC Urine Automated >30 /hpf (0-5)
[2020-04-22 05:53] LABS: Hematocrit (blood only) 25.3 % (42-52); Hemoglobin 8.1 g/dL (14.0-18.0); Mean Corpuscular Hemoglobin 28.7 pg (25-34); Mean Corpuscular Volume 89.7 fL (80-100); Mean Platelet Volume 9.1 fL (7.4-10.4); Platelet Count 168 K/uL (130-400); RDW Coefficient of Variation 17.8 % (11.5-14.5); RDW Standard Deviation 55.7 fL (36.4-46.3); Red Blood Count 2.82 M/uL (4.7-6.1); White Blood Count 10.23 K/uL (4.8-10.8)
[2020-04-22] MEDS: HEPARIN SOD 5,000 UNIT/0.5 ML VIAL SQ SCH ×3 (06:01→21:18)
[2020-04-22] MEDS: guaiFENesin/DEXTROM SYRUP 100MG/10MG 5ML UDC PO PRN ×2 (06:03→16:25)
[2020-04-22 06:49] LABS: BUN Creatinine Ratio 8.2 (10-20); Calcium 7.3 mg/dl (8.5-10.1); Est GFR (African American) 7.2; Est GFR (Non-African American) 6.2; Potassium 5.3 mmol/L (3.5-5.1)
--- NOTE | 2020-04-22 08:34 | XRay Report ---
XR chest 1V portable CLINICAL HISTORY: fever COMPARISON STUDY: Chest CT and chest radiograph April 09, 2020. FINDINGS: A right internal jugular dual lumen catheter remains in place. Cardiomegaly is unchanged. S mall to moderate left and small right pleural effusions are noted. Left pleural effusion has slightly decreased. Interstitial thickening is again noted. Bilateral airspace opacities have significantly i mproved since exam of April 09, 2020. There is no pneumothorax. IMPRESSION: 1. Significant interval improvement in airspace opacities since chest radiograph of April 09, 2020. 2. Persistent interstitial thickening which may reflect pulmonary edema or infectious process. 3. Small to moderate left and small right pleural effusions, slightly decreased. ACT 112: Negative or not required by law. Electronically signed by: Amos Pedraza M.D. 04/22/2020 8:32 AM
[2020-04-22] MEDS: hydrALAZINE HCL 25 MG TAB PO SCH ×3 (08:35→21:18)
[2020-04-22] MEDS: amLODIPine BESYLATE 5 MG TAB PO SCH (08:35)
[2020-04-22] MEDS: PANTOprazole 40 MG TAB PO SCH (08:35)
[2020-04-22] MEDS: CALCITRIOL 0.25 MCG CAPSULE PO SCH (08:35)
[2020-04-22] MEDS: ROSUVASTATIN CALCIUM 10 MG TAB PO SCH (08:35)
[2020-04-22] MEDS: CALCIUM ACETATE 667 MG CAP/TAB PO SCH ×3 (08:35→17:38)
[2020-04-22] MEDS: FERROUS SULFATE 325 MG TAB PO SCH (08:35)
[2020-04-22] MEDS: NEPHROCAPS PO SCH (08:35)
[2020-04-22] MEDS: allopurinoL 100 MG TAB PO SCH (08:35)
[2020-04-22] MEDS: INSULIN ASPART 100 UNITS/ML 3 ML PEN SC SCH ×4 (08:40→21:28)
[2020-04-22] MEDS ORDERED: SODIUM CHLORIDE 0.9% 1000ML 1,000 ML IV PRN (08:59)
[2020-04-22] MEDS ORDERED: EPOETIN ALFA 10,000 UNITS/ML VIAL IV SCH (09:00)
[2020-04-22] MEDS ORDERED: HEPARIN SOD (PORCINE) 1000 UNIT/ML IV SCH (09:00)
--- NOTE | 2020-04-22 10:12 | Nephrology Progress Note ---
Date of Service April 22, 2020 Assessment & Plan (1) ESRD needing dialysis: * Potential discharge to [facility] on Thursday. Plan to start HD at [facility] in isolation unit next week. * Started on hemodialysis on 04/09/[address] catheter[address]. Mayo placed permcath 04/16 * Will provide 2 hour HD treatment today to correct serum potassium (2K bath, 0 UF) (2) Anemia: * s/p 3 units PRBC this hospitalization * Venofer 200 mg IV x 5 doses recently completed * Epogen 69818 units given on 04/10. Additional Epogen 4000 units 04/16 (3) Hypocalcemia: * CKD/MBD with sPTH * Started Ca Acetate qAC for treatment of hyperphosphatemia * Started Calcitriol 0.5 QAM (4) Fluid overload: * Improving with HD * Recommend low sodium/HD diet and fluid restriction <1.5 L/d (5) Pneumonia due to COVID-19 virus: * Will require HD at [facility] in isolation for 21 days post + swab on 04/05 * Low grade fever overnight * WBC # trending down Admission and Anticipated Discharge Date Admission Date: April 09, 2020 Subjective Slept poorly last night. Low grade fever overnight. Currently denies dyspnea, angina or uremic symptoms Review of Systems Constitutional: + weakness; no fever Eyes: no worsening vision Respiratory: no cough and no dyspnea Cardiovascular: + edema; no chest pain and no palpitations Gastrointestinal: no abdominal pain, no vomiting and no diarrhea/loose stools Physical Exam Constitutional: no acute distress Eyes: PERRL, conjunctivae normal, anicteric sclerae Neck: trachea midline, no thyromegaly Respiratory: normal respiratory effort, lungs clear to auscultation Cardiovascular: Rate/Rhythm: regular rate and regular rhythm Extremities: + edema (1+ pretibial pitting edema) Gastrointestinal (Abdomen): normal bowel sounds, soft, nontender, no hepatosplenomegaly Skin: no rashes, warm and dry Results & Data ([facility]) Vital Signs (Past 12 Hours) Vital Signs Temp Pulse Resp BP BP Pulse Ox 04/22/20 07:45 37.2 C 102 H 18 126/97 96 04/22/20 06:03 36.8 C 04/22/20 00:42 37.8 C H 109 H 20 154/69 H 93 04/21/20 23:33 38.1 C H 04/21/20 22:34 37.6 C H 109 H 18 147/70 H 93 Laboratory Tests 04/22/20 04/22/20 05:39 05:39 WBC 10.23 Hgb 8.1 L Hct 25.3 L Plt Count 168 Sodium 136 Potassium 5.3 H D Chloride 105 Carbon Dioxide 23 BUN 67 H Creatinine 8.30 H* Glucose 79 PG Care Time/CCT Total # of Minutes Spent Total Time Spent with Patient: Total time spent is greater than 50% in coordination of care (as documented) at patient's floor/unit and/or counseling patient: Coding Level of Care Code 25302 Subseq Hosp Care Lvl 3 Diagnoses ESRD needing dialysis N18.6; Z99.2 Anemia D64.9 Anemia type: unspecified type Hypocalcemia E83.51 Fluid overload E87.70 Hypervolemia type: unspecified Pneumonia due to COVID-19 virus U07.1; J12.82 (1) Anemia Anemia type: unspecified type Qualified Code(s): D64.9 - Anemia, unspecified (2) Fluid overload Hypervolemia type: unspecified Qualified Code(s): E87.70 - Fluid overload, unspecified
--- NOTE | 2020-04-22 10:54 | Hospitalist Progress Note ---
Date of Service April 22, 2020 Assessment & Plan (1) ESRD needing dialysis: Presented with a creatinine of 16, BUN 125 with severe volume overload and respiratory failure as well as hypertensive urgency With a history of CKD stage IV-V in the past and no ongoing medical care for the last year due to having no insurance Had temporary dialysis catheter placed on 04/09 by vulnerability researcher received hemodialysis on 04/09, and 04/10, 04/11, and 04/12-tolerated well Electrolytes are all much improved, remains hypertensive but much improved, volume overload also much improved but persists with 2+ pitting edema of lower extremities and abdominal distention -Hypoxia resolved and pulmonary edema much improved on examination Presented with metabolic acidosis, hypocalcemia, and severe anemia as below. All now improving/resolved Appreciate nephrology consultation PermCath placement on 04/[address] Mayo HD on 04/16, 04/18 and 04/20 -Nephrocaps - PhosLo calcitriol 0.5 mcg once daily -Renally dose medications for GFR less than 10 -Renal diet, fluid restrict to 1500 mL/day difficult social situation, he is essentially homeless plan to go to [facility], will get transport to outpatient HD clinic and then will transfer up to [facility] for continued rehab office of aging will help with trying to set up housing once he is back in [place] plan for d/c on Thursday04/23/20, will get HD on Monday 04/24 in [place] dialysis unit (2) Pneumonia due to COVID-19 virus: Pneumonia due to COVID-19 virus with hypoxia-initially required BiPAP and is now weaned to room air on 04/14 after volume removal with IV Lasix as well as hemodialysis and starting dexamethasone Continue dexamethasone 6 mg IV every morning [id number], completed on 04/17/2020 breathing well, no cough, no hypoxia on room air Completed a 5-day course of azithromycin Completed Zosyn x7-day course-last dose on 04/15 (3) Hypoxia: With acute respiratory failure with hypoxia See above, secondary to volume overload from renal failure as well as Covid-19 pneumonia Resolved, breathing room air for the past week (4) Hypokalemia: Potassium 4.5 on 04/20 (5) Diabetes mellitus with hyperglycemia: Hold glimepiride from home and would not restart in the setting of ESRD Blood sugars were better controlled but now with significantly worsening hyperglycemia now that he is eating more and on dexamethasone, persists despite adding Lantus Continue Accu-Cheks before meals and at bedtime with NovoLog coverage per scale Hemoglobin A1c 5.4% but is likely inaccurate in the setting of severe anemia and renal failure sugars well controlled (6) Anemia: Hemoglobin remained at 7.2 despite 1 unit PRBCs on 04/09, but is now up to 9.9 on 04/18 and stable after 2 more units of PRBCs on 04/10 and IV iron as well as Epogen No gross bleeding from anywhere. Most likely secondary to anemia of chronic kidney disease Transferrin saturation 20% B12 is normal, folate low normal at 6 Nephrology ordered 5 doses of IV Venofer Continue p.o. ferrous sulfate Started Nephrocaps with folate (7) Hypocalcemia: Calcium level was low at 5.5 on admission here but now normal after several days of correction with IV calcium gluconate Changed sevelamer to PhosLo which has calcium in it This is secondary to severe renal failure Follow calcium and albumin levels (8) Nausea & vomiting: As above, likely secondary to BPPV as well as uremia and Covid-19 Now resolved, lauryn reg diet (9) Hypoalbuminemia: Secondary to acute illness and poor nutrition He was given IV albumin initially upon admission (10) Homelessness: He mostly lives out of his truck but does sleep at his sister's house although he reports his sister officially evicted him today while he was in the hospital Case management is involved and he has been given information on emergency housing after discharge will go to SNF for rehab and outpatient HD services area office of aging will help with living situation (11) Hypomagnesemia: Replaced Resolved (12) GERD (gastroesophageal reflux disease): No acute issues Continue home Protonix (13) Hypertension: Blood pressures were quite elevated secondary to renal failure and volume overload--> NOW much improved Continue amlodipine, IV hydralazine as needed -continue increased dose of amlodipine to 10 mg -add Hydralazine 25mg TID, good response, continue on discharge would hold anti-hypertensives in morning prior to HD as he tends to have low normal BP (14) Vertigo: With intermittent vertigo causing nausea and vomiting which comes on with changes in position. He reports this is a chronic issue May be worsened by volume overload Now resolved, will get PT/OT at SNF (15) DVT prophylaxis: Heparin SQ Disposition- will go to SNF on Sunday 04/23 with plans for HD on 04/24 in [place] HD clinic Admission and Anticipated Discharge Date Admission Date: April 09, 2020 Subjective patient doing well, no acute issues, breathing easy, eating well d/w CM, the insurance auth for SNF is effective tomorrow, so will discharge in the morning Review of Systems Review of Systems: All systems reviewed & are unremarkable except as noted in Subjective Cardiovascular: + edema Physical Exam Constitutional: WD/WN, vitals as above + overweight Neck: trachea midline, no thyromegaly Respiratory: normal respiratory effort, lungs clear to auscultation Cardiovascular: RRR, no murmur, no edema Rate/Rhythm: regular rate and regular rhythm Heart Sounds: normal S1 and normal S2; no murmur Vessels: no JVD Extremities: normal capillary refill and + edema Gastrointestinal (Abdomen): normal bowel sounds, soft, nontender, no hepatosplenomegaly Musculoskeletal: no cyanosis or clubbing, extremities motor strength 5/5 Skin: no rashes, warm and dry Neurologic: patellar DTR's 2+ bilat, sensation intact and PERRL, EOMI, accommodation nl, no face palsy, no dysarthria Psychiatric: A+Ox3, euthymic affect Lymphatic: no cervical or axillary lymphadenopathy Results & Data Results & Data ([facility]) Vital Signs (Past 12 Hours) Vital Signs Temp Pulse Resp BP BP Pulse Ox 04/22/20 07:45 37.2 C 102 H 18 126/97 96 04/22/20 06:03 36.8 C 04/22/20 00:42 37.8 C H 109 H 20 154/69 H 93 04/21/20 23:33 38.1 C H Medications Administered Current Inpatient Medications Acetaminophen (Acetaminophen 325 Mg Tab) 650 mg PO Q4H PRN PRN Reason: Pain or Fever Stop: 05/09/20 01:57 Last Admin: 04/21/20 22:40 Dose: 650 mg Documented by: Albuterol (Albut/Ipratrop 3mg/0.5mg Neb 3 Ml Vial) 3 ml NEB Q4R PRN PRN Reason: Shortness Of Breath Or Wheezing Stop: 05/09/20 08:45 Allopurinol (Allopurinol 100 Mg Tab) 100 mg PO DAILY [facility] Stop: 05/09/20 08:59 Last Admin: 04/22/20 08:35 Dose: 100 mg Documented by: Amlodipine Besylate (Amlodipine Besylate 5 Mg Tab) 10 mg PO QAM [facility] Stop: 05/13/20 08:59 Last Admin: 04/22/20 08:35 Dose: 10 mg Documented by: Calcitriol (Calcitriol 0.25 Mcg Capsule) 0.5 mcg PO QAM [facility] Stop: 05/11/20 08:59 Last Admin: 04/22/20 08:35 Dose: 0.5 mcg Documented by: Calcium Acetate (Calcium Acetate 667 Mg Cap/Tab) 667 mg PO TIDM [facility] Stop: 05/14/20 11:59 Last Admin: 04/22/20 08:35 Dose: 667 mg Documented by: Dextrose (Dextrose 50% 50 Ml Syringe) 25 - 50 ml IV UD PRN; Protocol PRN Reason: Hypoglycemia Protocol Stop: 05/09/20 01:57 Diphenhydramine HCl (Diphenhydramine 50 Mg/Ml Vial) 12.5 mg IV Q6 PRN PRN Reason: nausea,vertigo Stop: 05/11/20 10:42 Last Admin: 04/17/20 08:24 Dose: 12.5 mg Documented by: Epoetin Tristan (Epoetin Tristan 10,000 Units/Ml Vial) 10,000 units IV TODAY@0900 [facility] Stop: 04/22/20 23:59 Ferrous Sulfate (Ferrous Sulfate 325 Mg Tab) 325 mg PO DAILY [facility] Stop: 05/09/20 08:59 Last Admin: 04/22/20 08:35 Dose: 325 mg Documented by: Glucagon (Glucagon For Inj 1 Mg Vial) 1 mg SQ UD PRN; Protocol PRN Reason: Hypoglycemia Protocol Stop: 05/09/20 01:57 Glucose (Glucose 10 Tabs/Tube) 4 - 8 tabs PO UD PRN; Protocol PRN Reason: Hypoglycemia Protocol Stop: 05/09/20 01:57 Glucose (Glucose 40% Gel 15 Gm Tube) 15 - 30 gm PO UD PRN; Protocol PRN Reason: Hypoglycemia Protocol Stop: 05/09/20 01:57 Guaifenesin/Dextromethorphan (Guaifenesin/Dextrom Syrup 100mg/10mg 5ml Udc) 5 ml PO Q6H PRN PRN Reason: Cough Stop: 05/14/20 22:17 Last Admin: 04/22/20 06:03 Dose: 5 ml Documented by: Heparin Sodium (Porcine) (Heparin Sod 5,000 Unit/0.5 Ml Vial) 7,500 units SQ Q8 [facility] Stop: 05/09/20 05:59 Last Admin: 04/22/20 06:01 Dose: 7,500 units Documented by: Heparin Sodium (Porcine) (Heparin Sod (Porcine) 1000 Unit/Ml 10 Ml Vial) 2,000 units IV TODAY@0900 [facility] Stop: 04/22/20 23:59 Hydralazine HCl (Hydralazine Hcl 20 Mg/Ml Vial) 10 mg IV Q4H PRN PRN Reason: Blood Pressure - High Stop: 05/09/20 03:02 Last Admin: 04/16/20 00:13 Dose: 10 mg Documented by: Hydralazine HCl (Hydralazine Hcl 25 Mg Tab) 25 mg PO TID [facility] Stop: 05/20/20 14:44 Last Admin: 04/22/20 08:35 Dose: 25 mg Documented by: Sodium Chloride (Nss 1000ml) 1,000 mls @ 0 mls/hr IV .Q0M PRN PRN Reason: For Hemodialysis Use ONLY Stop: 04/22/20 14:58 Insulin Aspart (Insulin Aspart 100 Units/Ml 3 Ml Pen) 0 units SC ACHS [facility] Stop: 05/19/20 07:29 Last Admin: 04/22/20 08:40 Dose: 1 units Documented by: Magnesium Hydroxide (Magnesium Hydroxide Susp 30 Ml Udc) 30 ml PO Q12H PRN PRN Reason: Constipation Stop: 05/09/20 01:57 Metoprolol Tartrate (Metoprolol Tartrate 1 Mg/Ml Vial) 5 mg IV Q4 PRN PRN Reason: Blood Pressure - High Stop: 05/09/20 03:59 Last Admin: 04/14/20 03:59 Dose: 5 mg Documented by: Miscellaneous (Carbohydrates For Hypoglycemia ) 15 - 30 gm PO UD PRN PRN Reason: Hypoglycemia Protocol Stop: 05/09/20 01:57 Miscellaneous Information (Pharmacy Glycemic Mgmt Consult) 1 ea N/A UD PRN PRN Reason: Consult Stop: 05/15/20 17:12 Ondansetron HCl (Ondansetron Inj 2 Mg/Ml 2 Ml Vial) 4 mg IV Q6H PRN PRN Reason: Nausea Stop: 05/09/20 01:57 Last Admin: 04/11/20 09:20 Dose: 4 mg Documented by: Pantoprazole Sodium (Pantoprazole 40 Mg Tab) 40 mg PO DAILY [facility] Stop: 05/09/20 08:59 Last Admin: 04/22/20 08:35 Dose: 40 mg Documented by: Rosuvastatin Calcium (Rosuvastatin Calcium 10 Mg Tab) 10 mg PO DAILY [facility] Stop: 05/09/20 08:59 Last Admin: 04/22/20 08:35 Dose: 10 mg Documented by: Tramadol HCl (Tramadol Hcl 50 Mg Tablet) 50 mg PO Q4H PRN PRN Reason: Pain Stop: 05/17/20 11:23 Last Admin: 04/21/20 21:20 Dose: 50 mg Documented by: Vitamin B Complex/Folic Acid (Nephrocaps) 1 cap PO QAM [facility] Stop: 05/11/20 08:59 Last Admin: 04/22/20 08:35 Dose: 1 cap Documented by: PG Care Time/CCT Total # of Minutes Spent Total Time Spent with Patient: Total time spent is greater than 50% in coordination of care (as documented) at patient's floor/unit and/or counseling patient: Coding Level of Care Code 39594 Subseq Hosp Care Lvl 2 Diagnoses ESRD needing dialysis N18.6; Z99.2 Pneumonia due to COVID-19 virus U07.1; J12.82 Hypoxia R09.02 Hypokalemia E87.6 Diabetes mellitus with hyperglycemia E11.65 Anemia D64.9 Anemia type: unspecified type Hypocalcemia E83.51 Nausea & vomiting R11.2 Hypoalbuminemia E88.09 Homelessness Z59.0 Hypomagnesemia E83.42 GERD (gastroesophageal reflux disease) K21.9 Hypertension I10 Vertigo R42 DVT prophylaxis Z29.9 (1) Anemia Anemia type: unspecified type Qualified Code(s): D64.9 - Anemia, unspecified
[2020-04-22] MEDS: traMADol HCL 50 MG TABLET PO PRN (16:25)
[2020-04-22] MEDS: ACETAMINOPHEN 325 MG TAB PO PRN ×2 (17:45→22:23)
[2020-04-23] MEDS: HEPARIN SOD 5,000 UNIT/0.5 ML VIAL SQ SCH ×3 (05:46→21:20)
[2020-04-23] MEDS: guaiFENesin/DEXTROM SYRUP 100MG/10MG 5ML UDC PO PRN ×2 (05:54→17:21)
[2020-04-23] MEDS: traMADol HCL 50 MG TABLET PO PRN ×4 (05:54→20:19)
[2020-04-23 07:38] LABS: BUN Creatinine Ratio 7.9 (10-20); Creatinine Clr Calc Pharmacy 11.7 ml/min; Est GFR (African American) 7.3; Est GFR (Non-African American) 6.3; Potassium 4.7 mmol/L (3.5-5.1)
[2020-04-23] MEDS: ACETAMINOPHEN 325 MG TAB PO PRN (07:42)
--- NOTE | 2020-04-23 08:51 | Nephrology Progress Note ---
Date of Service April 23, 2020 Assessment & Plan (1) ESRD needing dialysis: * Potential discharge to [facility] soon. Plan to start HD at [facility] in isolation unit on TTS schedule. * Started on hemodialysis on 04/09/[address] catheter[address] Dr. Mayo placed permcath 04/16 * Potassium has corrected. No acute indication for HD today * Low grade fever overnight. WBC# wnl yesterday. Recent COVID infection. If patient remains hospitalized for ongoing evaluation, will provide inpatient HD tomorrow (2) Anemia: * s/p 3 units PRBC this hospitalization * Venofer 200 mg IV x 5 doses recently completed * ESTEVAN is being given w/ HD (3) Hypocalcemia: * CKD/MBD with sPTH * On Ca Acetate qAC for treatment of hyperphosphatemia * On Calcitriol 0.5 QAM (4) Fluid overload: * Improving with HD * Recommend low sodium/HD diet and fluid restriction <1.5 L/d (5) Pneumonia due to COVID-19 virus: * Will require HD at [facility] in isolation for 21 days post + swab on 04/05 * Low grade fever overnight * WBC # trending down Admission and Anticipated Discharge Date Admission Date: April 09, 2020 Subjective Mr. Moon was seen & examined in his hospital room this morning. He had a low grade fever overnight but currently denies dyspnea, angina or uremic symptoms Review of Systems Constitutional: + weakness; no fever Eyes: no problem reported Ear, Nose, Mouth, Throat: no problem reported Respiratory: no cough and no dyspnea Cardiovascular: + edema; no chest pain and no palpitations Gastrointestinal: no abdominal pain, no nausea and no diarrhea/loose stools Neurologic: no problem reported Physical Exam Constitutional: no acute distress Eyes: PERRL, conjunctivae normal, anicteric sclerae Neck: trachea midline, no thyromegaly Respiratory: normal respiratory effort, lungs clear to auscultation Cardiovascular: Rate/Rhythm: regular rate and regular rhythm Extremities: + edema (1+ pretibial pitting edema) Gastrointestinal (Abdomen): normal bowel sounds, soft, nontender, no hepatosplenomegaly Skin: no rashes, warm and dry Results & Data ([facility]) Vital Signs (Past 12 Hours) Vital Signs Temp Pulse Resp BP BP Pulse Ox 04/23/20 07:23 37.1 C 107 H 18 95/66 L 92 04/22/20 23:33 37.3 C 04/22/20 22:13 38.4 C H 112 H 16 115/52 L 92 04/22/20 21:18 171/69 H Laboratory Tests 04/23/20 06:14 Sodium 135 L Potassium 4.7 Chloride 103 Carbon Dioxide 22 BUN 65 H Creatinine 8.23 H* Glucose 84 Calcium 8.0 L PG Care Time/CCT Total # of Minutes Spent Total Time Spent with Patient: Total time spent is greater than 50% in coordination of care (as documented) at patient's floor/unit and/or counseling patient: Coding Level of Care Code 11687 Subseq Hosp Care Lvl 3 Diagnoses ESRD needing dialysis N18.6; Z99.2 Anemia D64.9 Anemia type: unspecified type Hypocalcemia E83.51 Fluid overload E87.70 Hypervolemia type: unspecified Pneumonia due to COVID-19 virus U07.1; J12.82 (1) Anemia Anemia type: unspecified type Qualified Code(s): D64.9 - Anemia, unspecified (2) Fluid overload Hypervolemia type: unspecified Qualified Code(s): E87.70 - Fluid overload, unspecified
[2020-04-23] MEDS: ROSUVASTATIN CALCIUM 10 MG TAB PO SCH (09:06)
[2020-04-23] MEDS: CALCITRIOL 0.25 MCG CAPSULE PO SCH (09:06)
[2020-04-23] MEDS: PANTOprazole 40 MG TAB PO SCH (09:06)
[2020-04-23] MEDS: NEPHROCAPS PO SCH (09:06)
[2020-04-23] MEDS: FERROUS SULFATE 325 MG TAB PO SCH (09:07)
[2020-04-23] MEDS: hydrALAZINE HCL 25 MG TAB PO SCH ×3 (09:07→20:19)
[2020-04-23] MEDS: amLODIPine BESYLATE 5 MG TAB PO SCH (09:07)
[2020-04-23] MEDS: allopurinoL 100 MG TAB PO SCH (09:07)
[2020-04-23] MEDS: CALCIUM ACETATE 667 MG CAP/TAB PO SCH ×3 (09:08→17:23)
[2020-04-23] MEDS: INSULIN ASPART 100 UNITS/ML 3 ML PEN SC SCH ×4 (09:19→20:33)
--- NOTE | 2020-04-23 10:55 | Pharmacy Report ---
Pharmacy Glycemic Sign Off Nt - Date of Service April 23, 2020 - Assessment & Plan ASSESSMENT: * Pharmacy was consulted by Dr Romo on 04/12/2020 for glycemic control and to write orders per [facility] inpatient glycemic control protocol. * Major changes made by pharmacy to antidiabetic regimen include: * initiation of Novolog * initiation and then subsequent cessation of basal insulin with steroids * Patient has been receiving/requiring 12 units of insulin per day for adequate glycemic control * BSGs ranging 84 - 127 mg/dl * Regimen has only required minor adjustments over the past 48hrs to achieve this level of control * Do not anticipate further changes in patient status that would quickly deteriorate glycemic control (i.e. patient to be NPO for upcoming procedure, steroids tapering, starting tube feedings, etc). * Please see recommendations for outpatient antidiabetic regimen below. PLAN FOR INPATIENT GLYCEMIC CONTROL: No changes needed to current regimen. * Continue NovoLog per scale ACHS/Q6hrs while NPO * Goal range = 110- 140 mg/dl * CF = 25 mg/dl/unit * CR = 1 unit for ever 9 g CHO consumed * Pharmacy is signing off of glycemic consult and will no longer be making adjustments to inpatient regimen. Please feel free to re-consult if needed. Thank you. DISCHARGE RECOMMENDATIONS: * A1c 5.4 % on 04/29/20 * Patient is a new start hemodialysis patient. * Amaryl is not the desired agent for hemodialysis. In renal impairment recommend glipizide. Could consider transitioning to this agent. * Recommend monitoring blood sugars as an outpatient as HbA1C may overestimate degree of hyperglycemia.
--- NOTE | 2020-04-23 11:57 | Hospitalist Progress Note ---
Date of Service April 23, 2020 Assessment & Plan (1) ESRD needing dialysis: Presented with a creatinine of 16, BUN 125 with severe volume overload and respiratory failure as well as hypertensive urgency With a history of CKD stage IV-V in the past and no ongoing medical care for the last year due to having no insurance Had temporary dialysis catheter placed on 04/09 by building code administrator received hemodialysis multiple times throughout his stay-tolerated well Electrolytes are all much improved, remains hypertensive but significantly improved, volume overload also much improved-persists with some trace pitting edema of the lower extremities -Hypoxia resolved and pulmonary edema much improved on examination Presented with metabolic acidosis, hypocalcemia, and severe anemia as below. All now improving/resolved Appreciate nephrology consultation PermCath placement on 04/[address] Mayo -Nephrocaps - PhosLo calcitriol 0.5 mcg once daily -Renally dose medications for GFR less than 10 -Renal diet, fluid restrict to 1500 mL/day difficult social situation, he is essentially homeless plan to go to [facility], will get transport to outpatient HD clinic and then will transfer up to [facility] for continued rehab office of aging will help with trying to set up housing once he is back in [place] Discharge canceled for today due to fevers as below (2) Knee pain: Developed severe acute right knee pain on 04/22. Also with fevers for the last 2 days Knee does not appear septic on examination but with severely limited range of motion, positive tenderness to palpation Suspect possible gout flare -Check x-rays Start prednisone 20 mg p.o. twice daily and observe for improvement Check uric acid level -Ortho consult (3) Fever: Since the evening of 04/21 Repeat chest x-ray at that time not worse than previous, UA seems contaminated but urine culture has pinpoint growth although he has no urinary symptoms His tunneled dialysis catheter does not appear infected He does have a cough and wheezing but this does not seem worse than his usual Possible that right knee pain and either gout versus less likely infected knee joint causing the fevers Blood cultures-no growth to date (4) Pneumonia due to COVID-19 virus: Pneumonia due to COVID-19 virus with hypoxia-initially required BiPAP and is now weaned to room air on 04/14 after volume removal with IV Lasix as well as hemodialysis and starting dexamethasone Continue dexamethasone 6 mg IV every morning [id number], completed on 04/17/2020 breathing well, no cough, no hypoxia on room air Completed a 5-day course of azithromycin Completed Zosyn x7-day course-last dose on 04/15 -Add on scheduled albuterol HFA for diffuse wheezing and history of smoking (5) Hypoxia: With acute respiratory failure with hypoxia See above, secondary to volume overload from renal failure as well as Covid-19 pneumonia Resolved, breathing room air for the past week (6) Hypokalemia: Resolved (7) Diabetes mellitus with hyperglycemia: Hold glimepiride from home and would not restart in the setting of ESRD Blood sugars were better controlled but now with significantly worsening hyperglycemia now that he is eating more and on dexamethasone, persists despite adding Lantus Continue Accu-Cheks before meals and at bedtime with NovoLog coverage per scale Hemoglobin A1c 5.4% but is likely inaccurate in the setting of severe anemia and renal failure sugars well controlled-appreciate glycemic control from pharmacist (8) Anemia: Hemoglobin remained at 7.2 despite 1 unit PRBCs on 04/09, but is now up to 9.9 on 04/18 and stable after 2 more units of PRBCs on 04/10 and IV iron as well as Epogen No gross bleeding from anywhere. Most likely secondary to anemia of chronic kidney disease Transferrin saturation 20% B12 is normal, folate low normal at 6 Nephrology ordered 5 doses of IV Venofer Continue p.o. ferrous sulfate Started Nephrocaps with folate Hemoglobin slowly trending back down to 8.4 on 04/22 Follow CBC in the morning (9) Hypocalcemia: Calcium level was low at 5.5 on admission here but now normal after several days of correction with IV calcium gluconate Changed sevelamer to PhosLo which has calcium in it This is secondary to severe renal failure Follow calcium and albumin levels (10) Nausea & vomiting: As above, likely secondary to BPPV as well as uremia and Covid-19 Now resolved, lauryn reg diet (11) Hypoalbuminemia: Secondary to acute illness and poor nutrition He was given IV albumin initially upon admission (12) Homelessness: He mostly lives out of his truck but does sleep at his sister's house although he reports his sister officially evicted him today while he was in the hospital Case management is involved and he has been given information on emergency housing after discharge will go to SNF for rehab and outpatient HD services area office of aging will help with living situation (13) Hypomagnesemia: Replaced Resolved (14) GERD (gastroesophageal reflux disease): No acute issues Continue home Protonix (15) Hypertension: Blood pressures were quite elevated secondary to renal failure and volume overload--> NOW much improved Continue amlodipine -continue increased dose of amlodipine to 10 mg -added Hydralazine 25mg TID, good response, continue on discharge would hold anti-hypertensives in morning prior to HD as he tends to have low normal BP (16) Vertigo: With intermittent vertigo causing nausea and vomiting which comes on with changes in position. He reports this is a chronic issue May be worsened by volume overload Now resolved, will get PT/OT at SNF (17) DVT prophylaxis: Heparin SQ Disposition- will go to SNF after fevers resolved-most likely now on Thursday and will receive hemodialysis here on Thursday Admission and Anticipated Discharge Date Admission Date: April 09, 2020 Subjective Patient complaining of severe right knee pain today especially on the lateral side. Is also been coughing a lot he thinks a little bit more in the last 2 days and it hurts to cough. He thinks that he has had gout in the past. He denies joint pains anywhere else. Has been having 3 loose stools a day but none so far today. No dysuria, no abdominal pain or nausea except when the pain in the knee is so bad it makes him nauseated. Review of Systems Review of Systems: All systems reviewed & are unremarkable except as noted in HPI & below Physical Exam Constitutional: WD/WN, vitals as above + obese; no acute distress Eyes: + anicteric sclerae ENMT: Ears: no hearing impairment Nose: no external nose abnormality Neck: trachea midline, no thyromegaly Respiratory: normal respiratory effort Auscultation: + rhonchi (A few scattered bibasilar) and + wheezes (Diffuse expiratory); no crackles Cardiovascular: Rate/Rhythm: regular rate and regular rhythm Heart Sounds: no murmur Extremities: + edema (Trace pitting edema of the legs bilaterally to the knees much improved); no vascular access device (Right tunneled dialysis catheter-ecchymosis but no erythema surrounding) Chest (Breasts): Chest: normal inspection of chest Gastrointestinal (Abdomen): normal bowel sounds, soft, nontender, no hepatosplenomegaly Musculoskeletal: Extremities: no cyanosis and no clubbing Knee: + effusion (Moderate on the right), + limited ROM of knee, + joint line tenderness (LJLT greater than MJLT) and + valgus alignment (20-90 degrees ROM on right knee); no skin erythema and no ecchymosis Skin: no rashes, warm and dry Neurologic: moves all extremities and awake; no focal motor deficits and not confused Psychiatric: A+Ox3, euthymic affect Results & Data Results & Data ([facility]) Vital Signs (Past 12 Hours) Vital Signs Temp Pulse Pulse Resp BP BP Pulse Ox 04/23/20 09:05 103 H 143/68 H 04/23/20 07:23 37.1 C 107 H 18 95/66 L 92 Laboratory Results 04/23/20 04/23/20 04/23/20 Range/Units 11:44 08:11 06:14 Sodium 135 L (136-145) mmol/L Potassium 4.7 (3.5-5.1) mmol/L Chloride 103 (98-107) mmol/L Carbon Dioxide 22 (21-32) mmol/L Anion Gap 11.0 (3-11) BUN 65 H (7-18) mg/dl Creatinine 8.23 H* (0.6-1.4) mg/dl Est Cr Clr Drug Dosing 11.7 ml/min Est GFR ( Amer) 7.3 Est GFR (Non-Af Amer) 6.3 BUN/Creatinine Ratio 7.9 L (10-20) Glucose 84 (70-99) mg/dl POC Glucose 115 H 89 (70-99) mg/dl Calcium 8.0 L (8.5-10.1) mg/dl 04/22/20 04/22/20 Range/Units 20:28 17:19 Sodium (136-145) mmol/L Potassium (3.5-5.1) mmol/L Chloride (98-107) mmol/L Carbon Dioxide (21-32) mmol/L Anion Gap (3-11) BUN (7-18) mg/dl Creatinine (0.6-1.4) mg/dl Est Cr Clr Drug Dosing ml/min Est GFR ( Amer) Est GFR (Non-Af Amer) BUN/Creatinine Ratio (10-20) Glucose (70-99) mg/dl POC Glucose 127 H 122 H (70-99) mg/dl Calcium (8.5-10.1) mg/dl PG Care Time/CCT Total # of Minutes Spent Total Time Spent with Patient: Total time spent is greater than 50% in coordination of care (as documented) at patient's floor/unit and/or counseling patient: Coding Level of Care Code 15021 Subseq Hosp Care Lvl 3 Diagnoses ESRD needing dialysis N18.6; Z99.2 Knee pain M25.569 Fever R50.9 Pneumonia due to COVID-19 virus U07.1; J12.82 Hypoxia R09.02 Hypokalemia E87.6 Diabetes mellitus with hyperglycemia E11.65 Anemia D64.9 Anemia type: unspecified type Hypocalcemia E83.51 Nausea & vomiting R11.2 Hypoalbuminemia E88.09 Homelessness Z59.0 Hypomagnesemia E83.42 GERD (gastroesophageal reflux disease) K21.9 Hypertension I10 Vertigo R42 DVT prophylaxis Z29.9 (1) Anemia Anemia type: unspecified type Qualified Code(s): D64.9 - Anemia, unspecified
--- NOTE | 2020-04-23 12:37 | Pharmacy Report ---
Pharmacy Glycemic Short Note 2 - Date of Service April 23, 2020 - Glycemic Short BSG Results (Last 24 hours): 04/22/20 04/22/20 04/23/20 17:19 20:28 06:14 Glucose 84 POC Glucose 122 H 127 H 04/23/20 04/23/20 08:11 11:44 Glucose POC Glucose 89 115 H OUTPATIENT ANTIDIABETIC REGIMEN: * Glimepiride 2mg daily ASSESSMENT: 04/22/20 * Patient started on prednisone 20 mg PO BID for gout flare. Pharmacy reconsulted. * When previously on steroids of dexamethasone 6 mg IV daily, he was receiving Lantus 10 units daily (with well controlled fastings) plus Novolog CF 20 CR 5. Dexamethasone 6 mg IV is equivalent to prednisone 20 mg PO. * Since the patient is now on prednisone 20 mg twice daily, it is reasonable to consider the above regimen as he will be receiving half the steroid dose twice a day. So will start with Novolog CF 15 CR 5. Consider tightening to CR of 4 if dinnertime BSG trends upwards significantly. * Will hold off on NPH at this point. Want to see if patient retains ability to correct himself overnight (added overnight checks to see how BSGs trend). 04/21/20 * Since dexamethasone discontinued, patient has required only prandial coverage. * Fasting BSG is 110 mg/dL which is within goal range. Continue no basal. * All BSGs below 140 mg/dL continue current Novolog. PLAN FOR INPATIENT GLYCEMIC CONTROL: * Hold outpatient oral diabetes medications * Bolus insulin * NovoLog per scale ACHS or Q4h * Goal Range: Low 110 mg/dL - High 140 mg/dL * Correction Factor: 15 mg/dL/unit * Nutritional / Prandial insulin per carb ratio of 1 unit per 5 grams CHO consumed Recommendations for discharge * Patient is on hemodialysis as an outpatient so HbA1C is not always indicative of true glycemic control. * Recommend monitoring BSGs as an outpatient and then adjusting regimen as appropriate.
[2020-04-23] MEDS: DICLOFENAC SOD 1% GEL 100 GM TUBE EXT SCH ×3 (12:38→20:20)
[2020-04-23] MEDS: predniSONE 20 MG TAB PO SCH ×2 (12:38→20:20)
[2020-04-23] MEDS: ALBUTEROL HFA 8 GM INHALER INH SCH ×2 (13:18→19:11)
--- NOTE | 2020-04-23 13:27 | XRay Report ---
XR knee RT 3V HISTORY: 64 years-old Male right knee pain,effusion acute right knee pain with reported joint effusi on COMPARISON: None TECHNIQUE: 3 views of the right knee FINDINGS: Moderate joint effusion. Mild lateral tilt of the patella within the trochlear groove. Moderate media l with mild to moderate lateral and patellofemoral compartment osteoarthritis. No dislocation or intr a-articular loose body. Linear lucency with subtle cortical irregularity involves the lateral tibial spine. Circumferential soft tissue swelling of the knee. IMPRESSION: 1. Mild cortical irregularity with linear lucency involves the lateral tibial spine suggestive of an age-indeterminate fracture. 2. Soft tissue swelling with moderate joint effusion. ACT 112: Negative or not required by law. The above report was generated using voice recognition software. It may contain grammatical, syntax o r spelling errors. Electronically signed by: Param Elizondo M.D. 04/23/2020 1:26 PM
--- NOTE | 2020-04-23 16:27 | Orthopedic Consultation ---
Date of Service April 23, 2020 Assessment & Plan (1) Knee pain: I did recommend aspirating the right knee today and will send this fluid off. I was only able to get about 5 mL of bloody fluid out of the knee. We will send this off for stat Gram stain, aerobic and anaerobic cultures, cell count with a differential, and crystal analysis. History of Present Illness Reason for Consultation: . Right knee pain Requesting Physician: . Attending Physician: Ivy Romo MD . Librado is a 64-year-old gentleman with multiple medical comorbidities including diabetes and end-stage renal disease, who was admitted on 04/08/2020 with pneumonia due to COVID-19. We were consulted for evaluation of acute knee pain which he states began yesterday. No specific injury just started hurting some throughout the day. He did have a fever over the last couple of days. He has a history of gout which has affected his ankles and knees in the past and had his knee aspirated many years ago he said. He denies any history of any knee surgery. He has been having some left knee pain as well but not but not as bad as the right knee. Allergies Allergy/AdvReac Type Severity Reaction Status Date / Time atorvastatin [From Lipitor] Allergy Unknown Verified 04/09/20 01:01 simvastatin [From Zocor] Allergy Unknown Verified 04/09/20 01:01 codeine AdvReac Intermediate Nausea Unverified 04/09/20 01:01 Home Medications Medication Instructions Recorded Confirmed Type rosuvastatin 10 mg tablet 10 mg PO DAILY #30 tab 11/03/18 Rx glimepiride 2 mg tablet 2 mg PO QAM #30 tab 06/03/19 Rx lisinopril 5 mg tablet 5 mg PO DAILY #30 tab 06/03/19 Rx allopurinol 100 mg tablet 100 mg PO DAILY #30 tab 06/06/19 Rx ferrous sulfate 325 mg (65 mg 325 mg PO UD tab 06/13/19 04/09/20 History iron) tablet pantoprazole 40 mg tablet,delayed 40 mg PO tab 06/13/19 06/13/19 History release Past Med/Surg History Medical History LINDSEY (acute kidney injury) Anemia Diabetes mellitus with hyperglycemia Elevated alkaline phosphatase level ESRD needing dialysis GERD (gastroesophageal reflux disease) Hypertension Vertigo Surgical History History of appendectomy History of incision and drainage Family History Mother Cancer Denies family history of Ovarian cancer Prostate cancer Myocardial infarction Breast cancer Colorectal cancer Social History Smoking Status: Never smoker Second Hand Exposure: Yes; Do You Dip or Chew Tobacco: No; Tobacco Cessation Education Requested by Patient: No Hx Alcohol Use: No Hx Substance Use: No Preferred Language: Pashto Communication Ability: Effective Dining Room Attendant Required: No Beliefs That Will Affect Care: None marital status: single Current Living Situation: Family current occupational status: employed Other Information That Helps Us Care for You: No Feels Safe at Home: Yes Safety Concerns: Feels Safe At This Time Assistive Devices: None Review of Systems All systems reviewed & are unremarkable except as noted in HPI & below. Physical Exam . Constitutional + obese; no acute distress Respiratory normal respiratory effort and + cough Musculoskeletal On exam of bilateral knees today he has small knee effusions. He is not able do a straight leg raise with the right leg on his own but if I passively lift his leg for me is able to hold it up some. He is able to do slightly better straight leg raise with the left leg. He has generalized tenderness palpation around his knees although he does have some scratches on his lower leg. Skin is intact around the knees. He has painful flexion and only flexes to about 90 degrees today. Psychiatric Orientation: alert and oriented x 3 Results & Data Results & Data Laboratory Results . Diagnostic Findings . X-rays of the right knee were reviewed which does show some DJD and a knee effusion, there is a lucency through the lateral tibial spine. PG Care Time/CCT Total # of Minutes Spent Total Time Spent with Patient: Total time spent is greater than 50% in coordination of care (as documented) at patient's floor/unit and/or counseling patient: Coding Level of Care Code 37142 Inpt Consult Level 3 Diagnoses Knee pain M25.569
[2020-04-23 17:28] LABS: Appearance Synovial Fluid BLOODY; Color Synovial Fluid RED; Mononuclear WBC Synovial 3.7 %; Polynuclear WBC Synovial 96.3 %; RBC Synovial Fluid (A) 174000 /uL; Source Synovial Fluid KNEE; WBC Synovial Fluid (A) 10744 /ul (0-200)
--- NOTE | 2020-04-23 19:57 | Procedure Note ---
Procedure Note Date of Service April 23, 2020 Note Right knee was sterilely prepped with alcohol and using aseptic technique approx 5ml of bloody fluid was aspirated from the right knee. He tolerated the procedure well. No complications. The fluid was sent for crystal analysis, cell count with diff, gram stain, aerobic and anaerobic cultures. Coding
[2020-04-24] MEDS: ALBUTEROL HFA 8 GM INHALER INH SCH ×4 (00:24→19:29)
[2020-04-24] MEDS: INSULIN ASPART 100 UNITS/ML 3 ML PEN SC SCH ×6 (00:35→21:20)
[2020-04-24] MEDS: HEPARIN SOD 5,000 UNIT/0.5 ML VIAL SQ SCH ×3 (06:20→21:16)
[2020-04-24] MEDS ORDERED: EPOETIN ALFA 10,000 UNITS/ML VIAL IV ONE (07:00)
[2020-04-24] MEDS ORDERED: SODIUM CHLORIDE 0.9% 1000ML 1,000 ML IV PRN (07:00)
[2020-04-24] MEDS ORDERED: HEPARIN SOD (PORCINE) 1000 UNIT/ML IV ONE (07:00)
[2020-04-24 07:26] LABS: Hematocrit (blood only) 24.5 % (42-52); Hemoglobin 7.8 g/dL (14.0-18.0); Mean Corpuscular Hgb Conc 31.8 g/dL (32-36); Mean Corpuscular Volume 91.1 fL (80-100); Mean Platelet Volume 9.7 fL (7.4-10.4); Platelet Count 251 K/uL (130-400); RDW Coefficient of Variation 17.7 % (11.5-14.5); RDW Standard Deviation 57.9 fL (36.4-46.3); Red Blood Count 2.69 M/uL (4.7-6.1); White Blood Count 10.01 K/uL (4.8-10.8)
[2020-04-24] MEDS: FERROUS SULFATE 325 MG TAB PO SCH (07:47)
[2020-04-24] MEDS: CALCITRIOL 0.25 MCG CAPSULE PO SCH (07:47)
[2020-04-24] MEDS: CALCIUM ACETATE 667 MG CAP/TAB PO SCH ×3 (07:48→18:05)
[2020-04-24] MEDS: NEPHROCAPS PO SCH (07:49)
[2020-04-24] MEDS: predniSONE 20 MG TAB PO SCH ×2 (07:49→21:15)
[2020-04-24] MEDS: allopurinoL 100 MG TAB PO SCH (07:49)
[2020-04-24] MEDS: DICLOFENAC SOD 1% GEL 100 GM TUBE EXT SCH ×4 (07:50→21:21)
[2020-04-24] MEDS: hydrALAZINE HCL 25 MG TAB PO SCH ×3 (08:00→21:14)
[2020-04-24] MEDS: amLODIPine BESYLATE 5 MG TAB PO SCH (08:00)
[2020-04-24 08:04] LABS: BUN Creatinine Ratio 7.9 (10-20); Calcium 8.2 mg/dl (8.5-10.1); Creatinine Clr Calc Pharmacy 9.6 ml/min; Est GFR (African American) 5.9; Est GFR (Non-African American) 5.1; Potassium 4.4 mmol/L (3.5-5.1)
--- NOTE | 2020-04-24 09:02 | Pharmacy Report ---
Pharmacy Glycemic Short Note 2 - Date of Service April 24, 2020 - Glycemic Short BSG Results (Last 24 hours): 04/23/20 04/23/20 04/23/20 11:44 16:56 20:32 Glucose POC Glucose 115 H 136 H 137 H 04/24/20 04/24/20 04/24/20 00:29 03:39 06:56 Glucose 155 H POC Glucose 151 H 131 H 04/24/20 07:59 Glucose POC Glucose 184 H OUTPATIENT ANTIDIABETIC REGIMEN: * Glimepiride 2mg daily ASSESSMENT: 04/24/20 * BSGs well controlled yesterday despite initiation of prednisone * 89, 115, 137, 137, 151 mg/dL * Fasting BSG of 184 mg/dL this morning * Patient previously controlled with Lantus 10 units SC daily while on IV dexamethasone 6 mg daily * Will give 5 units SC BID dosed with each dose of prednisone 04/23/20 * Patient started on prednisone 20 mg PO BID for gout flare. Pharmacy reconsulted. * When previously on steroids of dexamethasone 6 mg IV daily, he was receiving Lantus 10 units daily (with well controlled fastings) plus Novolog CF 20 CR 5. Dexamethasone 6 mg IV is equivalent to prednisone 20 mg PO. * Since the patient is now on prednisone 20 mg twice daily, it is reasonable to consider the above regimen as he will be receiving half the steroid dose twice a day. So will start with Novolog CF 15 CR 5. Consider tightening to CR of 4 if dinnertime BSG trends upwards significantly. * Will hold off on NPH at this point. Want to see if patient retains ability to correct himself overnight (added overnight checks to see how BSGs trend). PLAN FOR INPATIENT GLYCEMIC CONTROL: * Hold outpatient oral diabetes medications * Basal insulin - restart basal insulin with prednisone * Lantus 5 units SC BID * Bolus insulin - continue * NovoLog per scale ACHS or Q4h * Goal Range: Low 110 mg/dL - High 140 mg/dL * Correction Factor: 15 mg/dL/unit * Nutritional / Prandial insulin per carb ratio of 1 unit per 5 grams CHO consumed Recommendations for discharge * Patient is on hemodialysis as an outpatient so HbA1C is not always indicative of true glycemic control. * Recommend monitoring BSGs as an outpatient and then adjusting regimen as appropriate.
--- NOTE | 2020-04-24 10:06 | Nephrology Progress Note ---
Date of Service April 24, 2020 Assessment & Plan (1) ESRD needing dialysis: * Potential discharge to [facility] soon. Plan to start HD at [facility] in isolation unit on TTS schedule. * Started on hemodialysis on 04/09/[address] via [address] dialysis catheter. Dr. Mayo placed permcath 04/16 * HD today for correction of azotemia. Will attempt 3 L UF (2) Anemia: * s/p 3 units PRBC this hospitalization * Venofer 200 mg IV x 5 doses recently completed * ESTEVAN is being given w/ HD (3) Hypocalcemia: * CKD/MBD with sPTH * On Ca Acetate qAC for treatment of hyperphosphatemia * On Calcitriol 0.5 QAM (4) Fluid overload: * Improving with HD * Recommend low sodium/HD diet and fluid restriction <1.5 L/d (5) Pneumonia due to COVID-19 virus: * Will require HD at [facility] in isolation for 21 days post + swab on 04/05 * Low grade fever overnight * WBC # trending down Admission and Anticipated Discharge Date Admission Date: April 09, 2020 Subjective Mr. Moon was seen & examined in his hospital room this morning. He was afebrile overnight. R knee was aspirtated by Orthopedics. GS revealed WBC's. Culture is pending Review of Systems Constitutional: + weakness; no fever Eyes: no problem reported Ear, Nose, Mouth, Throat: no problem reported Respiratory: no cough and no dyspnea Cardiovascular: + edema; no chest pain and no palpitations Gastrointestinal: no abdominal pain, no nausea and no diarrhea/loose stools Neurologic: no problem reported Physical Exam Constitutional: no acute distress Eyes: PERRL, conjunctivae normal, anicteric sclerae Neck: trachea midline, no thyromegaly Respiratory: normal respiratory effort, lungs clear to auscultation Cardiovascular: Rate/Rhythm: regular rate and regular rhythm Extremities: + edema (1+ pretibial pitting edema) Gastrointestinal (Abdomen): normal bowel sounds, soft, nontender, no hepatosplenomegaly Skin: no rashes, warm and dry Results & Data ([facility]) Vital Signs (Past 12 Hours) Vital Signs Temp Pulse Pulse Resp BP Pulse Ox 04/24/20 07:50 36.5 C 94 H 18 118/70 94 04/24/20 07:00 101 H 16 93 04/24/20 02:49 37.4 C 100 H 18 173/91 H 94 04/24/20 00:26 101 H 24 93 04/23/20 23:10 37.2 C 101 H 24 114/65 93 Laboratory Tests 04/24/20 04/24/20 06:56 06:56 WBC 10.01 Hgb 7.8 L Hct 24.5 L Plt Count 251 Sodium 137 Potassium 4.4 Chloride 102 Carbon Dioxide 19 L BUN 77 H Creatinine 9.83 H* D Glucose 155 H Calcium 8.2 L PG Care Time/CCT Total # of Minutes Spent Total Time Spent with Patient: Total time spent is greater than 50% in coordination of care (as documented) at patient's floor/unit and/or counseling patient: Coding Level of Care Code 97277 Subseq Hosp Care Lvl 3 Diagnoses ESRD needing dialysis N18.6; Z99.2 Anemia D64.9 Anemia type: unspecified type Hypocalcemia E83.51 Fluid overload E87.70 Hypervolemia type: unspecified Pneumonia due to COVID-19 virus U07.1; J12.82 (1) Anemia Anemia type: unspecified type Qualified Code(s): D64.9 - Anemia, unspecified (2) Fluid overload Hypervolemia type: unspecified Qualified Code(s): E87.70 - Fluid overload, unspecified
[2020-04-24] MEDS: HEPARIN SOD (PORCINE) 1000 UNIT/ML IV SCH (10:46)
[2020-04-24] MEDS: INSULIN GLARGINE SOLOSTAR 100 UNITS/ML 3 ML PEN SC SCH ×2 (13:48→21:21)
[2020-04-24] MEDS: traMADol HCL 50 MG TABLET PO PRN (13:55)
[2020-04-24] MEDS: ROSUVASTATIN CALCIUM 10 MG TAB PO SCH (13:56)
[2020-04-24] MEDS: PANTOprazole 40 MG TAB PO SCH (13:56)
--- NOTE | 2020-04-24 14:33 | Orthopedic Progress Note ---
Date of Service April 24, 2020 Assessment & Plan (1) Gout: I reviewed the evaluation and assessment by the physician market research assistant from yesterday. I also evaluate the labs. I explained to Mr. Moon that his clinical course and the aspirated fluid shows that he did have a likely gout attack in that right knee. I agree with the management with prednisone for now. I would assume that nonsteroidal anti- inflammatory medication would be contraindicated in him. I do not see any benefit to an intra-articular dose of steroid at this point. He does seem to be doing better compared to yesterday's reports. He should follow-up with his primary care with regard to the diagnosis of gout. Okay to taper the steroid after resolution of his pain. Contact with further questions. Subjective Librado reports that his knee pain is noticeably better today. He was able to ambulate to the bathroom and could stand to put some weight on it. This is dramatically improved from yesterday. He has no further complaints. He does reiterate that he thought that he had gout and previous episodes. He is not sure if the steroid is working yet and he understands it may take time. Review of Systems All systems reviewed & are unremarkable except as noted in HPI & below. Physical Exam Right knee: The right knee has a trace palpable effusion. There is no erythema or warmth. He can fully extend and is neurovascularly intact distally. He has diffuse tenderness remains on the condylar surfaces and joint lines. Constitutional WD/WN, vitals as above no acute distress and not intoxicated appearing Respiratory normal respiratory effort; no labored breathing Cardiovascular Extremities: normal capillary refill Results & Data Results & Data Laboratory Results H & H 04/08/20 04/09/20 04/10/20 Range/Units 21:49 06:09 05:58 Hgb 7.1 L 7.0 L 7.2 L (14.0-18.0) g/dL Hct 21.5 L 20.9 L* 21.3 L (42-52) % 04/11/20 04/12/20 04/13/20 Range/Units 06:00 06:04 06:06 Hgb 10.0 L 10.3 L 10.3 L (14.0-18.0) g/dL Hct 29.4 L 30.6 L 30.5 L (42-52) % 0204/15/20 04/16/20 Range/Units 05:39 05:34 05:33 Hgb 10.4 L 9.9 L 10.4 L (14.0-18.0) g/dL Hct 31.2 L 29.4 L 30.5 L (42-52) % 04/18/20 04/20/20 04/22/20 Range/Units 06:28 06:21 05:39 Hgb 9.8 L 9.3 L 8.1 L (14.0-18.0) g/dL Hct 29.3 L 28.0 L 25.3 L (42-52) % 04/24/20 Range/Units 06:56 Hgb 7.8 L (14.0-18.0) g/dL Hct 24.5 L (42-52) % Coagulation 04/08/20 Range/Units 21:49 INR 1.2 H (0.9-1.1) Laboratory Tests 04/23/20 04/23/20 Unknown Unknown Synovial Appearance BLOODY Synovial WBC 79610 H Synovial Polynuclear % 96.3 Synovial Crystals positive for monosodium urate crystals Diagnostic Findings . PG Care Time/CCT Total # of Minutes Spent Total Time Spent with Patient: Total time spent is greater than 50% in coordination of care (as documented) at patient's floor/unit and/or counseling patient: Coding Level of Care Code 17332 Subseq Hosp Care Lvl 3 Diagnoses Gout M10.9
--- NOTE | 2020-04-24 15:40 | Orthopedic Progress Note ---
Date of Service April 24, 2020 Assessment & Plan (1) Gout of knee: He was seen and examined by Dr. Campo today. His crystal analysis shows gout. He is improved today and is on prednisone. No further intervention at this time. He can continue with PT and is WBAT. Subjective . 64 year old male whom I saw yesterday and aspirated his right knee. The crystal analysis shows gout, gram stain showed no organisms and culture is no growth to date. His knee's are feeling better today. He has been up ambulating some. His right knee hurts him some but improved. Review of Systems All systems reviewed & are unremarkable except as noted in HPI & below. Physical Exam .Alert and oriented, sitting in chair at the bedside. On exam of bilateral knees: Small knee effusions bilaterally. Skin intact around his knees. He can actively extend both knees. Results & Data Results & Data Laboratory Results . Gram stain: no organisms, many polys culture no growth to date. crystal analysis: positive for gout Diagnostic Findings . PG Care Time/CCT Total # of Minutes Spent Total Time Spent with Patient: Total time spent is greater than 50% in coordination of care (as documented) at patient's floor/unit and/or counseling patient: Coding Level of Care Code 64335 Subseq Hosp Care Lvl 1 Diagnoses Gout of knee M10.9
[2020-04-24] MEDS: guaiFENesin/DEXTROM SYRUP 100MG/10MG 5ML UDC PO PRN (21:22)
--- NOTE | 2020-04-24 21:51 | Hospitalist Progress Note ---
Date of Service April 24, 2020 Assessment & Plan (1) ESRD needing dialysis: Presented with a creatinine of 16, BUN 125 with severe volume overload and respiratory failure as well as hypertensive urgency With a history of CKD stage IV-V in the past and no ongoing medical care for the last year due to having no insurance Had temporary dialysis catheter placed on 04/09 by hole puncher strap received hemodialysis multiple times throughout his stay-continues to tolerate well-will now be on a Thursday//Thursday schedule Electrolytes are all much improved, hypertension is now much improved, volume overload also much improved-persists with some trace pitting edema of the lower extremities -Hypoxia resolved and pulmonary edema much improved on examination Presented with metabolic acidosis, hypocalcemia, and severe anemia as below. All now resolved Appreciate nephrology consultation PermCath placement on 04/[address] Mayo -Nephrocaps - PhosLo calcitriol 0.5 mcg once daily -Renally dose medications for GFR less than 10 -Renal and low-sodium diet, fluid restrict to 1500 mL/day difficult social situation, he is essentially homeless plan to go to [facility], will get transport to outpatient HD clinic and then will transfer up to [facility] for continued rehab office of aging will help with trying to set up housing once he is back in [place] (2) Knee pain: Developed severe acute right knee pain on 04/22. Also with fevers for the previous 2 days which are now resolved Knee does not appear septic on examination but with severely limited range of motion, positive tenderness to palpation Suspect possible gout flare-orthopedics aspirated the knee and he does indeed have gout crystals upon examination X-ray show possible tibial plateau fracture? Moderate effusion, and arthritis Synovial fluid culture-no growth to date Knee is significantly improved as far as reduced pain and increased range of motion after 24 hours on high-dose prednisone Uric acid level in the serum is normal at 6.0 -Continue prednisone 20 mg p.o. twice daily and taper down over the next 7 days -Ortho consult [id number] as tolerated and follow-up as needed (3) Fever: Started evening of 04/21 and none further since 04/23 Repeat chest x-ray at that time not worse than previous, UA seems contaminated but urine culture has pinpoint growth although he has no urinary symptoms His tunneled dialysis catheter does not appear infected He does have a cough and wheezing but this does not seem worse than his usual Blood cultures-no growth to date Knee aspiration without evidence of infection thus far Most likely fevers were secondary to acute gout flare which is now improving on prednisone (4) Pneumonia due to COVID-19 virus: Pneumonia due to COVID-19 virus with hypoxia-initially required BiPAP and is now weaned to room air on 04/14 after volume removal with IV Lasix as well as hemodialysis and starting dexamethasone Continue dexamethasone 6 mg IV every morning [id number], completed on 04/17/2020 breathing well, no cough, no hypoxia on room air Completed a 5-day course of azithromycin Completed Zosyn x7-day course-last dose on 04/15 -Add on scheduled albuterol HFA for diffuse wheezing and history of smoking (5) Hypoxia: With acute respiratory failure with hypoxia See above, secondary to volume overload from renal failure as well as Covid-19 pneumonia Resolved, breathing room air for the past week (6) Hypokalemia: Resolved (7) Diabetes mellitus with hyperglycemia: Hold glimepiride from home and would not restart in the setting of ESRD Blood sugars were better controlled but now with significantly worsening hyperglycemia now that he is eating more and on dexamethasone, persists despite adding Lantus Continue Accu-Cheks before meals and at bedtime with NovoLog coverage per scale Hemoglobin A1c 5.4% but is likely inaccurate in the setting of severe anemia and renal failure sugars well controlled-appreciate glycemic control from pharmacist (8) Anemia: Hemoglobin remained at 7.2 despite 1 unit PRBCs on 04/09, but then was up to 9.9 on 04/18 and stable after 2 more units of PRBCs on 04/10 and IV iron as well as Epogen No gross bleeding from anywhere. Most likely secondary to anemia of chronic kidney disease Transferrin saturation 20% B12 is normal, folate low normal at 6 Nephrology ordered 5 doses of IV Venofer which has been completed Hemoglobin low again today at 7.8 Continue p.o. ferrous sulfate Started Nephrocaps with folate Follow CBC in the morning and Epogen to be given at nephrology's discretion No transfusion for today (9) Hypocalcemia: Calcium level was low at 5.5 on admission here but now normal after several days of correction with IV calcium gluconate Changed sevelamer to PhosLo which has calcium in it This is secondary to severe renal failure Follow calcium and albumin levels (10) Nausea & vomiting: As above, likely secondary to BPPV as well as uremia and Covid-19 Now resolved, lauryn reg diet (11) Hypoalbuminemia: Secondary to acute illness and poor nutrition He was given IV albumin initially upon admission (12) Homelessness: He mostly lives out of his truck but does sleep at his sister's house although he reports his sister officially evicted him today while he was in the hospital Case management is involved and he has been given information on emergency housing after discharge will go to SNF for rehab and outpatient HD services area office of aging will help with living situation (13) Hypomagnesemia: Replaced Resolved (14) GERD (gastroesophageal reflux disease): No acute issues Continue home Protonix (15) Hypertension: Blood pressures were quite elevated secondary to renal failure and volume overload--> NOW much improved Continue amlodipine -continue increased dose of amlodipine to 10 mg -added Hydralazine 25mg TID, good response, continue on discharge would hold anti-hypertensives in morning prior to HD as he tends to have low normal BP (16) Vertigo: With intermittent vertigo causing nausea and vomiting which comes on with changes in position. He reports this is a chronic issue May be worsened by volume overload Now resolved, will get PT/OT at SNF (17) Gout: As above in the right knee (18) DVT prophylaxis: Heparin SQ Disposition- will go to SNF tomorrow as fevers have resolved and gout is improved Admission and Anticipated Discharge Date Admission Date: April 09, 2020 Subjective Patient feels significantly improved with the pain in his right knee today and he was able to ambulate around the room more. He also had dialysis today which he tolerated well. He denies chest pains or shortness of breath. Still has a cough but it is also improving. His appetite is good and he is eating well. He is anxious for discharge from the hospital. Review of Systems Review of Systems: All systems reviewed & are unremarkable except as noted in HPI & below Physical Exam Constitutional: WD/WN, vitals as above + obese; no acute distress Eyes: + anicteric sclerae ENMT: Ears: no hearing impairment Nose: no external nose abnormality Neck: trachea midline, no thyromegaly Respiratory: normal respiratory effort Auscultation: + rhonchi (A few scattered bibasilar); no crackles and no wheezes Cardiovascular: Rate/Rhythm: regular rate and regular rhythm Heart Sounds: no murmur Extremities: + edema (Trace pitting edema of the legs bilaterally to the knees much improved); no vascular access device (Right tunneled dialysis catheter-ecchymosis but no erythema surrounding) Chest (Breasts): Chest: normal inspection of chest Gastrointestinal (Abdomen): normal bowel sounds, soft, nontender, no hepatosplenomegaly Musculoskeletal: Extremities: no cyanosis and no clubbing Knee: + effusion (Only small on the right-improved), + limited ROM of knee (Right knee but significantly improved from previous, 0-100 degrees) and + joint line tenderness (LJLT greater than MJLT improved from previous); no skin erythema and no ecchymosis Skin: no rashes, warm and dry Neurologic: moves all extremities and awake; no focal motor deficits and not confused Psychiatric: A+Ox3, euthymic affect Results & Data Results & Data ([facility]) Vital Signs (Past 12 Hours) Vital Signs Temp Pulse Pulse Pulse Pulse Resp BP 04/24/20 21:12 36.7 C 93 H 19 04/24/20 19:31 87 16 04/24/20 15:16 36.8 C 94 H 18 04/24/20 13:20 36.6 C 81 04/24/20 13:00 93 H 134/74 04/24/20 12:40 95 H 130/73 04/24/20 12:20 94 H 140/79 04/24/20 12:00 92 H 131/74 04/24/20 11:40 91 H 130/77 04/24/20 11:20 91 H 132/75 04/24/20 11:00 92 H 124/89 04/24/20 10:40 92 H 124/89 04/24/20 10:20 92 H 124/89 04/24/20 10:00 93 H 128/75 BP BP Pulse Ox 04/24/20 21:12 125/76 93 04/24/20 19:31 97 04/24/20 15:16 127/72 94 04/24/20 13:20 133/75 04/24/20 13:00 04/24/20 12:40 04/24/20 12:20 04/24/20 12:00 04/24/20 11:40 04/24/20 11:20 04/24/20 11:00 04/24/20 10:40 04/24/20 10:20 04/24/20 10:00 Laboratory Results 04/24/20 04/24/20 04/24/20 Range/Units 20:52 17:00 13:23 WBC (4.8-10.8) K/uL RBC (4.7-6.1) M/uL Hgb (14.0-18.0) g/dL Hct (42-52) % MCV (80-100) fL MCH (25-34) pg MCHC (32-36) g/dL RDW Std Deviation (36.4-46.3) fL RDW Coeff of Inderjit (11.5-14.5) % Plt Count (130-400) K/uL MPV (7.4-10.4) fL Sodium (136-145) mmol/L Potassium (3.5-5.1) mmol/L Chloride (98-107) mmol/L Carbon Dioxide (21-32) mmol/L Anion Gap (3-11) BUN (7-18) mg/dl Creatinine (0.6-1.4) mg/dl Est Cr Clr Drug Dosing ml/min Est GFR ( Amer) Est GFR (Non-Af Amer) BUN/Creatinine Ratio (10-20) Glucose (70-99) mg/dl POC Glucose 137 H 160 H 151 H (70-99) mg/dl Calcium (8.5-10.1) mg/dl Synovial Crystals 04/24/20 04/24/20 04/24/20 Range/Units 07:59 06:56 06:56 WBC 10.01 (4.8-10.8) K/uL RBC 2.69 L (4.7-6.1) M/uL Hgb 7.8 L (14.0-18.0) g/dL Hct 24.5 L (42-52) % MCV 91.1 (80-100) fL MCH 29.0 (25-34) pg MCHC 31.8 L (32-36) g/dL RDW Std Deviation 57.9 H (36.4-46.3) fL RDW Coeff of Inderjit 17.7 H (11.5-14.5) % Plt Count 251 (130-400) K/uL MPV 9.7 (7.4-10.4) fL Sodium 137 (136-145) mmol/L Potassium 4.4 (3.5-5.1) mmol/L Chloride 102 (98-107) mmol/L Carbon Dioxide 19 L (21-32) mmol/L Anion Gap 16.0 H (3-11) BUN 77 H (7-18) mg/dl Creatinine 9.83 H* D (0.6-1.4) mg/dl Est Cr Clr Drug Dosing 9.6 ml/min Est GFR ( Amer) 5.9 Est GFR (Non-Af Amer) 5.1 BUN/Creatinine Ratio 7.9 L (10-20) Glucose 155 H (70-99) mg/dl POC Glucose 184 H (70-99) mg/dl Calcium 8.2 L (8.5-10.1) mg/dl Synovial Crystals 04/24/20 04/24/20 04/23/20 Range/Units 03:39 00:29 Unknown WBC (4.8-10.8) K/uL RBC (4.7-6.1) M/uL Hgb (14.0-18.0) g/dL Hct (42-52) % MCV (80-100) fL MCH (25-34) pg MCHC (32-36) g/dL RDW Std Deviation (36.4-46.3) fL RDW Coeff of Inderjit (11.5-14.5) % Plt Count (130-400) K/uL MPV (7.4-10.4) fL Sodium (136-145) mmol/L Potassium (3.5-5.1) mmol/L Chloride (98-107) mmol/L Carbon Dioxide (21-32) mmol/L Anion Gap (3-11) BUN (7-18) mg/dl Creatinine (0.6-1.4) mg/dl Est Cr Clr Drug Dosing ml/min Est GFR ( Amer) Est GFR (Non-Af Amer) BUN/Creatinine Ratio (10-20) Glucose (70-99) mg/dl POC Glucose 131 H 151 H (70-99) mg/dl Calcium (8.5-10.1) mg/dl Synovial Crystals Synovial fluid with birefringent crystals consistent with uric acid Synovial fluid culture-no growth to date PG Care Time/CCT Total # of Minutes Spent Total Time Spent with Patient: Total time spent is greater than 50% in coordination of care (as documented) at patient's floor/unit and/or counseling patient: Coding Level of Care Code 34769 Subseq Hosp Care Lvl 2 Diagnoses ESRD needing dialysis N18.6; Z99.2 Knee pain M25.569 Fever R50.9 Pneumonia due to COVID-19 virus U07.1; J12.82 Hypoxia R09.02 Hypokalemia E87.6 Diabetes mellitus with hyperglycemia E11.65 Anemia D64.9 Anemia type: unspecified type Hypocalcemia E83.51 Nausea & vomiting R11.2 Hypoalbuminemia E88.09 Homelessness Z59.0 Hypomagnesemia E83.42 GERD (gastroesophageal reflux disease) K21.9 Hypertension I10 Vertigo R42 Gout M10.9 DVT prophylaxis Z29.9 (1) Anemia Anemia type: unspecified type Qualified Code(s): D64.9 - Anemia, unspecified
[2020-04-25] MEDS: ALBUTEROL HFA 8 GM INHALER INH SCH ×2 (00:54→07:26)
[2020-04-25] MEDS: HEPARIN SOD 5,000 UNIT/0.5 ML VIAL SQ SCH (05:44)
[2020-04-25 07:02] LABS: Hematocrit (blood only) 25.2 % (42-52); Hemoglobin 8.1 g/dL (14.0-18.0); Immature Granulocytes # (auto) 0.03 K/uL (0.00-0.02); Immature Granulocytes % (auto) 0.4 %; Lymphocytes # (auto) 0.62 K/uL (1.2-3.4); Mean Corpuscular Hemoglobin 29.2 pg (25-34); Mean Corpuscular Hgb Conc 32.1 g/dL (32-36); Mean Platelet Volume 9.3 fL (7.4-10.4); Monocytes # (auto) 0.36 K/uL (0.11-0.59); Monocytes % (auto) 4.7 %; Neutrophils % (auto) 86.9 %; Platelet Count 257 K/uL (130-400); RDW Coefficient of Variation 17.9 % (11.5-14.5); RDW Standard Deviation 58.4 fL (36.4-46.3); Red Blood Count 2.77 M/uL (4.7-6.1); White Blood Count 7.71 K/uL (4.8-10.8)
[2020-04-25] MEDS: guaiFENesin/DEXTROM SYRUP 100MG/10MG 5ML UDC PO PRN (07:33)
[2020-04-25 07:39] LABS: BUN Creatinine Ratio 8.2 (10-20); Creatinine Clr Calc Pharmacy 13.5 ml/min; Est GFR (African American) 9.3; Est GFR (Non-African American) 8.1; Potassium 4.4 mmol/L (3.5-5.1)
[2020-04-25] MEDS ORDERED: ALBUTEROL HFA 8 GM INHALER INH PRN (08:02)
--- NOTE | 2020-04-25 08:24 | Nephrology Progress Note ---
Date of Service April 25, 2020 Assessment & Plan (1) ESRD needing dialysis: * Potential discharge to [facility] soon. Plan to start HD at [facility] in isolation unit on TTS schedule. * Started on hemodialysis on 04/09/[address] catheter[address] Mayo placed permcath 04/16 * No acute indication for HD today. Will reassess in am if patient is still hospitalized (2) Anemia: * s/p 3 units PRBC this hospitalization * Venofer 200 mg IV x 5 doses recently completed * ESTEVAN is being given w/ HD (3) Hypocalcemia: * CKD/MBD with sPTH * On Ca Acetate qAC for treatment of hyperphosphatemia * On Calcitriol 0.5 QAM (4) Fluid overload: * Improving with HD * Recommend low sodium/HD diet and fluid restriction <1.5 L/d (5) Pneumonia due to COVID-19 virus: * Will require HD at [facility] in isolation for 21 days post + swab on 04/08 * Fever resolved, WBC # now wnl. Patient has occasional cough but denies dyspnea Admission and Anticipated Discharge Date Admission Date: April 09, 2020 Subjective Mr. Moon was seen & examined in his hospital room this morning. He was afebrile overnight. He reports that R knee pain is improved. HD was provided yesterday for 4 hours w/ 3 L UF. No complications. IJ THC ran well A-->A. Review of Systems Constitutional: + weakness; no fever Eyes: no problem reported Ear, Nose, Mouth, Throat: no problem reported Respiratory: no cough and no dyspnea Cardiovascular: + edema; no chest pain and no palpitations Gastrointestinal: no abdominal pain, no nausea and no diarrhea/loose stools Neurologic: no problem reported Physical Exam Constitutional: no acute distress Eyes: PERRL, conjunctivae normal, anicteric sclerae Neck: trachea midline, no thyromegaly Respiratory: normal respiratory effort, lungs clear to auscultation Cardiovascular: Rate/Rhythm: regular rate and regular rhythm Extremities: + edema (1+ pretibial pitting edema) Gastrointestinal (Abdomen): normal bowel sounds, soft, nontender, no hepatosplenomegaly Skin: no rashes, warm and dry Results & Data ([facility]) Vital Signs (Past 12 Hours) Vital Signs Temp Pulse Pulse Pulse Resp BP BP 04/25/20 07:26 97 H 18 04/25/20 06:58 36.8 C 95 H 20 132/63 04/25/20 00:54 88 20 04/24/20 22:59 36.6 C 88 20 144/75 H 04/24/20 21:12 36.7 C 93 H 19 125/76 Pulse Ox 04/25/20 07:26 95 04/25/20 06:58 94 04/25/20 00:54 93 04/24/20 22:59 94 04/24/20 21:12 93 Laboratory Tests 11/13/17 04/23/20 04/25/20 12:35 12:08 06:18 WBC 7.71 Hgb 8.1 L Hct 25.2 L Plt Count 257 Sodium Potassium Chloride Carbon Dioxide BUN Creatinine Glucose Uric Acid 8.0 H 6.4 04/25/20 06:18 WBC Hgb Hct Plt Count Sodium 133 L Potassium 4.4 Chloride 100 Carbon Dioxide 24 BUN 55 H Creatinine 6.70 H* D Glucose 168 H Uric Acid PG Care Time/CCT Total # of Minutes Spent Total Time Spent with Patient: Total time spent is greater than 50% in coordination of care (as documented) at patient's floor/unit and/or counseling patient: Coding Level of Care Code 46900 Subseq Hosp Care Lvl 3 Diagnoses ESRD needing dialysis N18.6; Z99.2 Anemia D64.9 Anemia type: unspecified type Hypocalcemia E83.51 Fluid overload E87.70 Hypervolemia type: unspecified Pneumonia due to COVID-19 virus U07.1; J12.82 (1) Anemia Anemia type: unspecified type Qualified Code(s): D64.9 - Anemia, unspecified (2) Fluid overload Hypervolemia type: unspecified Qualified Code(s): E87.70 - Fluid overload, unspecified
[2020-04-25] MEDS ORDERED: INSULIN GLARGINE SOLOSTAR 100 UNITS/ML 3 ML PEN SC SCH (09:00)
[2020-04-25] MEDS: INSULIN ASPART 100 UNITS/ML 3 ML PEN SC SCH ×2 (09:17→11:37)
[2020-04-25] MEDS: FERROUS SULFATE 325 MG TAB PO SCH (09:20)
[2020-04-25] MEDS: PANTOprazole 40 MG TAB PO SCH (09:20)
[2020-04-25] MEDS: CALCITRIOL 0.25 MCG CAPSULE PO SCH (09:20)
[2020-04-25] MEDS: predniSONE 20 MG TAB PO SCH (09:20)
[2020-04-25] MEDS: hydrALAZINE HCL 25 MG TAB PO SCH (09:20)
[2020-04-25] MEDS: ROSUVASTATIN CALCIUM 10 MG TAB PO SCH (09:21)
[2020-04-25] MEDS: amLODIPine BESYLATE 5 MG TAB PO SCH (09:21)
[2020-04-25] MEDS: allopurinoL 100 MG TAB PO SCH (09:21)
[2020-04-25] MEDS: NEPHROCAPS PO SCH (09:21)
[2020-04-25] MEDS: CALCIUM ACETATE 667 MG CAP/TAB PO SCH ×2 (09:22→11:39)
[2020-04-25] MEDS: DICLOFENAC SOD 1% GEL 100 GM TUBE EXT SCH (09:22)
[2020-04-25] MEDS: ACETAMINOPHEN 325 MG TAB PO PRN (10:42)
--- NOTE | 2020-04-25 11:41 | Pharmacy Report ---
Pharmacy Glycemic Short Note 2 - Date of Service April 25, 2020 - Glycemic Short BSG Results (Last 24 hours): 04/24/20 04/24/20 04/24/20 13:23 17:00 20:52 Glucose POC Glucose 151 H 160 H 137 H 04/25/20 04/25/20 04/25/20 06:18 07:47 11:20 Glucose 168 H POC Glucose 185 H 210 H OUTPATIENT ANTIDIABETIC REGIMEN: * Glimepiride 2mg daily ASSESSMENT: 04/25/20 * BSGs reasonably well controlled yesterday despite initiation of prednisone * 184, 151, 160, and 137 mg/dL * Fasting BSG of 185 mg/dL this morning * Will increase basal insulin today to combat hyperglycemic effects of prednisone 04/23/20 * Patient started on prednisone 20 mg PO BID for gout flare. Pharmacy reconsulted. * When previously on steroids of dexamethasone 6 mg IV daily, he was receiving Lantus 10 units daily (with well controlled fastings) plus Novolog CF 20 CR 5. Dexamethasone 6 mg IV is equivalent to prednisone 20 mg PO. * Since the patient is now on prednisone 20 mg twice daily, it is reasonable to consider the above regimen as he will be receiving half the steroid dose twice a day. So will start with Novolog CF 15 CR 5. Consider tightening to CR of 4 if dinnertime BSG trends upwards significantly. * Will hold off on NPH at this point. Want to see if patient retains ability to correct himself overnight (added overnight checks to see how BSGs trend). PLAN FOR INPATIENT GLYCEMIC CONTROL: * Hold outpatient oral diabetes medications * Basal insulin - increase * 10 units SC this morning, plan for Lantus scale this evening if remains in patient * Bolus insulin - continue * NovoLog per scale ACHS or Q4h * Goal Range: Low 110 mg/dL - High 140 mg/dL * Correction Factor: 15 mg/dL/unit * Nutritional / Prandial insulin per carb ratio of 1 unit per 5 grams CHO consumed Recommendations for discharge * Patient is on hemodialysis as an outpatient so HbA1C is not always indicative of true glycemic control. * Recommend monitoring BSGs as an outpatient and then adjusting regimen as appropriate. * Glimepiride is not a recommended treatment in patients requiring hemodialysis, but may be reasonable to continue if not experiencing hypoglycemia * Otherwise, may be reasonable to switch to glipizide 2.5 mg PO daily (preferred sulfonylurea in patients with renal impairment)
--- NOTE | 2020-04-25 12:18 | Discharge Summary ---
Date of Service April 25, 2020 Admission HPI Per Admitting Provider The patient is a 64-year-old male with a past medical history including diabetes mellitus, right carpal tunnel syndrome, right hand cellulitis, CKD stage III, hyperbilirubinemia, hyponatremia, pneumonia, proteinuria, gout, iron deficiency, GERD, morbid obesity and hyperlipidemia. In addition to the symptoms noted above, patient reports that he remembers medications at least a week ago. Significant laboratories in the ED: Calcium 5.3, magnesium 1.6, troponin 0 0.06, BNP 86704, albumin 2.1, pro-Victor Manuel 1.15, BUN 125 and creatinine 16.10. COVID-19 test was positive. Chest x-ray showed ARDS/viral pneumonia picture. Patient arrived to the ED on CPAP due to severe hypoxia in the field, and was changed to BiPAP upon arrival. Principal Diagnosis Covid-19 pneumonia, acute respiratory failure with hypoxia, end-stage renal disease requiring dialysis, severe anemia, acute gout right knee Discharge Exam Constitutional WD/WN, vitals as above + obese; no acute distress Eyes + anicteric sclerae ENMT Ears: no hearing impairment Nose: no external nose abnormality Neck trachea midline, no thyromegaly Respiratory normal respiratory effort Auscultation: + rhonchi (A few scattered bibasilar); no crackles and no wheezes Cardiovascular Rate/Rhythm: regular rate and regular rhythm Heart Sounds: no murmur Extremities: + edema (1+ pitting edema of the legs bilaterally to the knees much improved) and + vascular access device (Right tunneled dialysis catheter- ecchymosis but no erythema surrounding) Chest (Breasts) Chest: normal inspection of chest Gastrointestinal (Abdomen) normal bowel sounds, soft, nontender, no hepatosplenomegaly Musculoskeletal Extremities: no cyanosis and no clubbing Knee: + effusion (Only small on the right-improved), + limited ROM of knee (Right knee but significantly improved from previous, 0-100 degrees) and + joint line tenderness (LJLT greater than MJLT improved from previous); no skin erythema and no ecchymosis Skin no rashes, warm and dry Neurologic moves all extremities and awake; no focal motor deficits and not confused Cranial Nerves: no nystagmus Psychiatric A+Ox3, euthymic affect Lymphatic no lymphedema Discharge Data Allergies Allergy/AdvReac Type Severity Reaction Status Date / Time atorvastatin [From Lipitor] Allergy Unknown Verified 04/09/20 01:01 simvastatin [From Zocor] Allergy Unknown Verified 04/09/20 01:01 codeine AdvReac Intermediate Nausea Unverified 04/09/20 01:01 Consultations 04/08/20 23:38 ED Decision to Admit Stat 04/09/20 01:58 Consult Case Management - Discharge Planning Routine Consult Nephrology Routine 04/09/20 10:03 Consult Knowledge Management Consultant Routine 04/09/20 11:59 Consult Case Management - Discharge Planning Routine 04/11/20 10:09 Consult Vascular Surgery Routine 04/23/20 11:52 Consult Orthopedic Surgery Routine 04/24/20 21:42 Consult Case Management - Discharge Planning Routine Procedures Performed Operation Date: 04/16/20 09:20 Actual Procedures p Insertion Of Perm Cathter, Right Internal Jugular Approach, Ultrasound Localization Of Right Internal Jugular Vein, Moderate Concious Sedation 1013 to 1032(Right) - Miah Mayo MD Ordered Studies 04/08/20 23:20 CT abd pelvis wo con Urgent CT chest diagnostic wo con Urgent 04/16/20 07:25 EV cvc insrt tunnel wo prt/survey statistician Routine US EV guide vascular access Routine Knee x-ray Chest x-ray x3 Hospital Course (1) ESRD needing dialysis: Presented with a creatinine of 16, BUN 125 with severe volume overload and respiratory failure as well as hypertensive urgency With a history of CKD stage IV-V in the past and no ongoing medical care for the last year due to having no insurance Had temporary dialysis catheter placed on 04/09 by winder contort operator received hemodialysis multiple times throughout his stay-continues to tolerate well-will now be on a Thursday//Thursday schedule Electrolytes are all much improved, hypertension is now much improved, volume overload also much improved-persists with some trace pitting edema of the lower extremities -Hypoxia resolved and pulmonary edema much improved on examination Presented with metabolic acidosis, hypocalcemia, and severe anemia as below. All now resolved Appreciate nephrology consultation PermCath placement on 04/[address] Mayo -Nephrocaps - PhosLo calcitriol 0.5 mcg once daily -Renally dose medications for GFR less than 10 -Renal and low-sodium diet, fluid restrict to 1500 mL/day difficult social situation, he is essentially homeless plan to go to [facility], will get transport to outpatient HD clinic and then will transfer up to [facility] for continued rehab office of aging will help with trying to set up housing once he is back in [place] (2) Knee pain: Developed severe acute right knee pain on 04/22. Also with fevers for the previous 2 days which are now resolved since 04/23 Knee does not appear septic on examination but with severely limited range of motion, positive tenderness to palpation-all now significantly improved since starting prednisone Suspect possible gout flare-orthopedics aspirated the knee and he does indeed have gout crystals upon examination X-ray show possible tibial plateau fracture? Moderate effusion, and arthritis Synovial fluid culture-no growth to date Knee is significantly improved as far as reduced pain and increased range of motion after 24 hours on high-dose prednisone Uric acid level in the serum is normal at 6.0 but this is dialyzed off -Continue prednisone 20 mg p.o. twice daily for total of 7 days and then stop -Ortho consult [id number] as tolerated and follow-up as needed Fortunately, in the future he will not likely have issues with gout as uric acid is dialyzable. No need to continue on allopurinol (3) Fever: Started evening of 04/21 and none further since 04/23 Repeat chest x-ray at that time not worse than previous, UA seems contaminated but urine culture has pinpoint growth although he has no urinary symptoms His tunneled dialysis catheter does not appear infected He does have a cough and wheezing but this does not seem worse than his usual Blood cultures-no growth to date Knee aspiration without evidence of infection thus far Most likely fevers were secondary to acute gout flare which is now improving on prednisone (4) Pneumonia due to COVID-19 virus: Pneumonia due to COVID-19 virus with hypoxia-initially required BiPAP and is now weaned to room air on 04/14 after volume removal with IV Lasix as well as hemodialysis and starting dexamethasone Continue dexamethasone 6 mg IV every morning [id number], completed on 04/17/2020 breathing well, no cough, no hypoxia on room air Completed a 5-day course of azithromycin Completed Zosyn x7-day course-last dose on 04/15 -Continue albuterol HFA as needed (5) Hypoxia: With acute respiratory failure with hypoxia See above, secondary to volume overload from renal failure as well as Covid-19 pneumonia Resolved, breathing room air for the past week (6) Hypokalemia: Resolved (7) Diabetes mellitus with hyperglycemia: Discontinue glimepiride from home and would not restart in the setting of ESRD Blood sugars were better controlled after having hyperglycemia while on dexamethasone Continue Accu-Cheks before meals and at bedtime with NovoLog coverage per scale Continue Lantus 8 units once daily upon discharge and adjust as needed Hemoglobin A1c 5.4% but is likely inaccurate in the setting of severe anemia and renal failure sugars well controlled-appreciate glycemic control from pharmacist (8) Anemia: Hemoglobin remained at 7.2 despite 1 unit PRBCs on 04/09, but then was up to 9.9 on 04/18 and stable after 2 more units of PRBCs on 04/10 and IV iron as well as Epogen No gross bleeding from anywhere. Most likely secondary to anemia of chronic kidney disease Transferrin saturation 20% B12 is normal, folate low normal at 6 Nephrology ordered 5 doses of IV Venofer which has been completed Hemoglobin low but stable at 8.1 Continue p.o. ferrous sulfate Started Nephrocaps with folate Follow CBC at dialysis and Epogen to be given at nephrology's discretion (9) Hypocalcemia: Calcium level was low at 5.5 on admission here but now normal after several days of correction with IV calcium gluconate Changed sevelamer to PhosLo which has calcium in it This is secondary to severe renal failure Follow calcium and albumin levels (10) Nausea & vomiting: As above, likely secondary to BPPV as well as uremia and Covid-19 Now resolved, lauryn reg diet (11) Hypoalbuminemia: Secondary to acute illness and poor nutrition He was given IV albumin initially upon admission (12) Homelessness: He mostly lives out of his truck but does sleep at his sister's house although he reports his sister officially evicted him today while he was in the hospital Case management is involved and he has been given information on emergency housing after discharge will go to SNF for rehab and outpatient HD services area office of aging will help with living situation (13) Hypomagnesemia: Replaced Resolved (14) GERD (gastroesophageal reflux disease): No acute issues Continue home Protonix (15) Hypertension: Blood pressures were quite elevated secondary to renal failure and volume overload--> NOW much improved -continue amlodipine to 10 mg -added Hydralazine 25mg TID, good response, continue on discharge would hold anti-hypertensives in morning prior to HD as he tends to have low normal BP (16) Vertigo: With intermittent vertigo causing nausea and vomiting which comes on with changes in position. He reports this is a chronic issue May be worsened by volume overload Now resolved, will get PT/OT at SNF (17) Gout: As above in the right knee, now much improved (18) DVT prophylaxis: Heparin SQ Disposition- will go to SNF today continue dialysis as an outpatient Total Time Total Time Spent Total Time Spent (In Minutes): 35 minutes Total Time Includes: Examination of the Patient, Discharge Planning, Medication Reconciliation and Communication With Other Providers (Nephrology) Discharge Plan Discharge Items Patient Disposition: Transfer [facility] Fac Reason For Visit: ARF, COVID-19 Discharge Diagnosis: End-stage renal disease, Covid-19 pneumonia, acute respiratory failure with hypoxia, right knee gout flare Condition on Discharge: Fair Activity: As commented below Bathing Comment: Keep tunneled dialysis catheter dry and clean Exercise/Sports: Gradually increase as tolerated Exercise Comment: With physical and Occupational Therapy Non-emergency contact: Primary Care Provider and Vending Machine Technician Call non-emergency contact if: you have any medication questions, your symptoms worsen, your pain is not controlled and you have a fever Follow-up/Referrals: Martín Turk MD [Primary Care Provider] - (Please follow-up within 2 weeks after discharge from rehab) Diet: Carb Consistent or DM2, Dialysis Renal and Low Sodium (2gm) Addtl Attending Provider Instructions: You were admitted for worsening kidney failure, severe anemia, and Covid-19 pneumonia with low oxygen levels. You were started on dialysis and had improvement in your condition. You will continue on dialysis on a Thursday//Thursday schedule. You did not need any oxygen at the time of discharge and you are recovering from your Covid-19 pneumonia. Please continue the albuterol inhaler as needed for cough or wheezing, cough syrup as needed. You were started on new blood pressure medicines and insulin for your diabetes. You were transfused red blood cells as well for your severe anemia. You had a flare of gout in the right knee which was much improved with prednisone-please finish out the course of prednisone over the next 5 days and then stop. You are also started on vitamins and medications that will help your bones stay strong while on dialysis. It was a pleasure taking care of you. Best wishes on your continued recovery. -Ivy Romo MD Pending Studies at Discharge: No Stand-Alone Forms: My [facility] Skilled Items Patient informed of condition?: Yes DNR: No Discharge Level of Care: Skilled Communicable Disease: Yes Discharge Prognosis: Improving Lines: None Urinary Catheter: No Medications and DC Order Prescriptions: New albuterol sulfate [Ventolin HFA] 90 mcg/actuation Hfa Aerosol Inhaler 2 puff inhalation Q6R PRN (Reason: shortness of breath or wheezing) Qty: 18 RF: 0 amlodipine 10 mg tablet 10 mg PO DAILY Qty: 30 RF: 0 hydralazine 25 mg Tablet 25 mg PO TID Qty: 90 RF: 0 diclofenac sodium [Voltaren] 1 % Gel 4 g EXT QID 7 Days Qty: 100 RF: 0 calcium acetate(phosphat bind) 667 mg Capsule 667 mg PO TIDM Qty: 90 RF: 0 insulin aspart U-100 [Novolog Flexpen U-100 Insulin] 100 unit/mL (3 mL) Insulin Pen 1 unit SC ACHS Qty: 15 RF: 0 Lantus Solostar U-100 Insulin 100 unit/mL (3 mL) Insulin Pen 8 unit SC DAILY Qty: 3 RF: 0 prednisone 20 mg Tablet 20 mg PO BID 5 Days Qty: 10 RF: 0 dextromethorphan-guaifenesin 10-100 mg/5 mL Syrup 5 ml PO Q6H PRN (Reason: cough) Qty: 237 RF: 0 Renal Caps 1 mg Capsule 1 cap PO QAM Qty: 30 RF: 0 calcitriol 0.5 mcg capsule 0.5 mcg PO DAILY Qty: 30 RF: 0 Continued rosuvastatin [Crestor] 10 mg tablet 10 mg PO DAILY Qty: 30 RF: 0 Changed pantoprazole 40 mg tablet,delayed release (DR/EC) 40 mg PO DAILY Qty: 30 RF: 0 ferrous sulfate 325 mg (65 mg iron) tablet 325 mg PO QAM Qty: 30 RF: 0 Discontinued glimepiride [Amaryl] 2 mg tablet 2 mg PO QAM Qty: 30 RF: 5 lisinopril [Zestril] 5 mg tablet 5 mg PO DAILY Qty: 30 RF: 5 allopurinol [Zyloprim] 100 mg tablet 100 mg PO DAILY Qty: 30 RF: 1 Discharge Orders: Discharge Order (Routine); Ordered 04/25/20 Ordered By: Ivy Rivero/Other Patient Handouts: High Blood Sugar (Hyperglycemia), Hypoglycemia (Low Blood Sugar), Managing Type 2 Diabetes, How to Check Your Blood Sugar Admission Data Admit Date/Time: 04/09/20 00:30 Attending Provider: Ivy Romo Admit Provider: Jain Bryant Primary Care Provider: Martín Turk Other Providers: [facility], ; [place] ; [facility] ; Jani Bryant ; Jessica Pinon ; Alfonso Mayberry ; Miah Mayo ; Keith Toribio Other Interventions: Discharge Summary Assessment (RN) Last Done: 04/25/20 10:08 Coding Level of Care Code D/C Day Management >30 mins Diagnoses ESRD needing dialysis N18.6; Z99.2 Knee pain M25.569 Fever R50.9 Pneumonia due to COVID-19 virus U07.1; J12.82 Hypoxia R09.02 Hypokalemia E87.6 Diabetes mellitus with hyperglycemia E11.65 Anemia D64.9 Anemia type: unspecified type Hypocalcemia E83.51 Nausea & vomiting R11.2 Hypoalbuminemia E88.09 Homelessness Z59.0 Hypomagnesemia E83.42 GERD (gastroesophageal reflux disease) K21.9 Hypertension I10 Vertigo R42 Gout M10.9 DVT prophylaxis Z29.9
== END 2020-04-25 12:40 | DRG 177 ==
LOC: ED 21:08 → OBSVTOIN 04-09 00:30 → SUATTDRO 04-09 00:30 → INTOOBSV 04-09 00:30 → 2E 04-09 00:30 → 3W 04-16 11:54

== ENCOUNTER 2022-07-12 19:39 | Inpatient (IN) ==
[2022-07-12] MEDS ORDERED: CEFEPIME 2,000 MG/20 ML VIAL IV STA (20:00)
[2022-07-12] MEDS ORDERED: SODIUM CHLORIDE 0.9% 1000ML 500 ML IV ONE ×2 (20:00→20:53)
--- NOTE | 2022-07-12 20:05 | Emergency Department Note ---
Impression & Plan Sepsis, Hypotension, Leukocytosis, Acute UTI, Dialysis patient ED Provider Note NAME: JYOTI HARRISON AGE: 67 SEX: M : 1955 ARRIVES VIA: Ambulance INFORMANT: [Patient] ED PROVIDER(S): [Donnell Hilliard MD] CHIEF COMPLAINT: Illness HISTORY OF PRESENT ILLNESS: The patient is a 67-year-old male who presents with several days of feeling lightheaded, groggy, sleepy, dizzy. He feels like he might faint, things worsen with standing. Patient describes some headache and some left flank discomfort, the left flank pain seems worse with certain movements. The patient did have dialysis yesterday. He was told that he had a UTI. The patient is currently on oral Cipro, he has taken 1 dose so far. There is no chest pain, no fever, no cough. There has been no vomiting or diarrhea. No one-sided weakness. The patient was seen in the ED about 3 weeks ago for a fall. Brain CT at that time was negative. He denies any fall since his last ED visit. PMHx/PSHx: See Below SOCIAL HISTORY: See Below. PHYSICAL EXAM: GENERAL: Patient is in no acute distress. HEENT: No acute trauma, normocephalic atraumatic, mucous membranes moist, no nasal congestion. NECK: No stridor, no adenopathy, no meningismus, trachea is midline. LUNGS: Clear to auscultation bilaterally, no wheeze, no rhonchi, breath sounds equal. HEART: Without murmurs gallops or rubs, regular rate and rhythm. ABDOMEN: Soft, nontender, bowel sounds positive, no peritonitis. EXTREMITIES: No cyanosis or edema, full range of motion of all the joints without pain or difficulty, no signs for acute trauma. NEUROLOGIC: Oriented x 3, no acute motor or sensory deficits, no focal weakness. SKIN: No rash, no jaundice, no diaphoresis. DIFFERENTIAL DIAGNOSIS: Sepsis or bacteremia, dehydration, anemia, electrolyte imbalance, UTI, intracranial bleeding, stroke, among others. EMERGENCY DEPARTMENT COURSE/PROCEDURES: Prior/Outside records reviewed: Previous ED visit. ECG per my interpretation: Indication was weakness. The ECG shows a normal sinus rhythm with a rate of 86. There is no ST elevation, no PVCs. The QTc is 442. Continuous Cardiac Monitoring per my interpretation: An order was placed for continuous cardiac monitoring. The monitor shows a rate of 84 with normal sinus rhythm. Critical Care Note: I have personally spent 49 minutes of critical care time in the direct management of this patient. This includes bedside care, interpretation of diagnostic studies, and testing, discussion with consultants, patient, and family members, and other required patient management activities. This 49 minutes is in excess of all separately billable procedures. MEDICAL DECISION MAKING: There is a significant leukocytosis, this would be consistent with infection. The patient is anemic with a hemoglobin of 11.4. His anemia is baseline. There is a normal platelet count. INR slightly high at 1.1. Sodium was somewhat low at 132. Creatinine was elevated consistent with his dialysis need. Lactic acid level was elevated at over 4, repeat showed a downtrend to 2.6. The lactic acid elevation certainly is consistent with infection. Magnesium is slightly low at 1.6. Bilirubin mildly elevated. Alk phos mildly elevated. ECG showed a normal sinus rhythm, no ischemia. Cardiac enzyme testing x1 was slightly elevated. This troponin elevation could be secondary to mismatch, his renal disease, or cardiac injury. Procalcitonin level was elevated consistent with bacterial infection. COVID, influenza and RSV test returned negative. Chest film shows what appears to be some chronic change in the left lower lung per my review. No CHF. No obvious pneumonia. Brain CT showed no acute bleed or mass effect. CT of the abdomen pelvis showed inflammation to the bladder, no acute surgical process by CT imaging. Urinalysis result is currently pending. On exam, the patient was somewhat hypotensive, he was not toxic. The patient was aggressively managed. He received IV cefepime and IV daptomycin. He was given 1 L of IV saline. Of note, the patient did not receive 30 cc/kg of saline per sepsis parameters because of his dialysis need. There was concern for significant fluid overload with progression to heart failure. I spoke with the patient, I did contact case management. The on-call hospitalist has been consulted. The patient is currently resting comfortably. He is mentating well, he feels improved. His infection is likely urinary as he was told he had a UTI yesterday while at dialysis. He had taken 1 dose of Cipro today. DISPOSITION: Patient presentation and findings warrant a hospital stay. Past Med/Surg History Medical History Anemia Carpal tunnel syndrome of right wrist Diabetes mellitus with hyperglycemia Elevated troponin I level ESRD (end stage renal disease) on dialysis GERD (gastroesophageal reflux disease) Gout Gout of knee Hyperbilirubinemia Hypertension Osteoarthritis of knees, bilateral Vertigo Surgical History History of appendectomy History of incision and drainage Family History Mother Cancer Denies family history of Ovarian cancer Prostate cancer Myocardial infarction Breast cancer Colorectal cancer Social History Smoking Status: Never smoker Second Hand Exposure: Yes; Do You Dip or Chew Tobacco: No; Hx Alcohol Use: No Hx Substance Use: No Preferred Language: Kiswahili Communication Ability: Effective Family Physician Required: No Beliefs That Will Affect Care: None marital status: single Current Living Situation: Family current occupational status: employed Feels Safe at Home: Yes Diet: regular caffeine: Yes Dental Care, Regularly: No Seatbelt Use: always Sunscreen Use: No Assistive Devices: Walker Allergies Allergies Allergy/AdvReac Type Severity Reaction Status Date / Time atorvastatin [From Lipitor] Allergy Unknown CAN'T Verified 07/12/22 20:24 REMEMBER simvastatin [From Zocor] Allergy Unknown CAN'T Verified 07/12/22 20:24 REMEMBER codeine AdvReac Intermediate Nausea Verified 07/12/22 20:24 Home Meds Home Medications Medication Instructions Recorded Confirmed ergocalciferol (vitamin D2) 1,250 1,250 mcg PO WK 05/19/21 07/12/22 mcg (50,000 unit) capsule (Vitamin D2) vitamin B complex and vitamin C 1 cap PO DAILY 05/19/21 07/12/22 no.20-folic acid 1 mg capsule (Renal Caps) docusate sodium 100 mg capsule 100 mg PO BID 10/08/21 07/12/22 escitalopram oxalate 10 mg tablet 20 mg PO DAILY 10/08/21 07/12/22 glucagon 1 mg solution for See Rx Instructions IM .COMPLEX 10/08/21 07/12/22 injection (Glucagon Emergency Kit) meclizine 12.5 mg tablet 12.5 mg PO Q6H PRN Dizziness 10/08/21 07/12/22 carvedilol 6.25 mg tablet 6.25 mg PO DIRECTED 07/12/22 07/12/22 Previous Rx's Medication Instructions Recorded blood sugar diagnostic (WillCallTouch #50 ea 10/08/21 Verio test strips) lancets 33 gauge (Beryllium Delrashid #100 ea 10/08/21 Lancets) lancing device with lancets kit #1 ea 10/08/21 ([employer] Lancing Device kit) omeprazole 20 mg capsule,delayed 20 mg PO DAILY #90 caps 10/28/21 release sertraline 50 mg tablet (Zoloft) 50 mg PO DAILY #90 tabs 10/28/21 calcium acetate(phosphat bind) 667 667 mg PO TID #90 caps 11/22/21 mg capsule insulin glargine 100 unit/mL (3 15 unit (0.15 mL) SC QAM #15 mL 11/22/21 mL) subcutaneous pen (Lantus Solostar U-100 Insulin) rosuvastatin 10 mg tablet (Crestor) 10 mg PO HS #90 tabs 11/22/21 cetirizine 10 mg tablet 10 mg PO DAILY #90 tabs 12/23/21 pen needle, diabetic 31 gauge x #100 ea 02/04/22 5/16" (BD Ultra-Fine Short Pen Needle) pen needle, diabetic, safety 30 #100 ea 02/11/22 gauge x 3/16" (Assure ID Pen Needle) ciprofloxacin HCl 500 mg tablet 500 mg PO DAILY #7 tabs 07/11/22 Results & Data (ED) Vital Signs Vital Signs - 24 hr 07/12/22 19:47 07/12/22 20:00 07/12/22 20:54 Temperature 36.9 C Temperature Source Oral Pulse Rate 84 Pulse Rate from SpO2 Sensor Respiratory Rate 20 Respiratory Effort / Characteristics Non-Labored Respiratory Depth Normal Blood Pressure 81/57 L Blood Pressure Mean 65 Pulse Oximetry 97 93 Oxygen Delivery Method Room Air Room Air Sepsis Recent Fever Within 48 Hours No Sepsis New/Unexplained Change in Mental Status N/A Sepsis Action Taken by Nursing No Action Required 07/12/22 20:00 07/12/22 19:50 07/12/22 19:56 Temperature Temperature Source Pulse Rate 83 83 84 Pulse Rate from SpO2 Sensor 82 85 Respiratory Rate 20 16 Respiratory Effort / Characteristics Respiratory Depth Blood Pressure Blood Pressure Mean Pulse Oximetry 96 97 Oxygen Delivery Method Sepsis Recent Fever Within 48 Hours Sepsis New/Unexplained Change in Mental Status Sepsis Action Taken by Nursing 07/12/22 19:56 07/12/22 20:00 07/12/22 20:00 Temperature Temperature Source Pulse Rate 85 Pulse Rate from SpO2 Sensor 86 Respiratory Rate 21 Respiratory Effort / Characteristics Respiratory Depth Blood Pressure 103/68 95/61 L Blood Pressure Mean 79 72 Pulse Oximetry 90 Oxygen Delivery Method Sepsis Recent Fever Within 48 Hours Sepsis New/Unexplained Change in Mental Status Sepsis Action Taken by Nursing 07/12/22 20:10 07/12/22 20:20 07/12/22 20:30 Temperature Temperature Source Pulse Rate 84 84 Pulse Rate from SpO2 Sensor Respiratory Rate 19 25 H 17 Respiratory Effort / Characteristics Respiratory Depth Blood Pressure Blood Pressure Mean Pulse Oximetry Oxygen Delivery Method Sepsis Recent Fever Within 48 Hours Sepsis New/Unexplained Change in Mental Status Sepsis Action Taken by Nursing 07/12/22 20:31 07/12/22 20:31 07/12/22 20:38 Temperature Temperature Source Pulse Rate 91 H Pulse Rate from SpO2 Sensor Respiratory Rate 18 Respiratory Effort / Characteristics Respiratory Depth Blood Pressure 71/57 L 94/46 L Blood Pressure Mean 61 62 Pulse Oximetry Oxygen Delivery Method Sepsis Recent Fever Within 48 Hours Sepsis New/Unexplained Change in Mental Status Sepsis Action Taken by Nursing 07/12/22 20:38 07/12/22 20:40 07/12/22 21:10 Temperature Temperature Source Pulse Rate 85 85 83 Pulse Rate from SpO2 Sensor Respiratory Rate 17 21 20 Respiratory Effort / Characteristics Respiratory Depth Blood Pressure Blood Pressure Mean Pulse Oximetry Oxygen Delivery Method Sepsis Recent Fever Within 48 Hours Sepsis New/Unexplained Change in Mental Status Sepsis Action Taken by Nursing 07/12/22 21:11 07/12/22 21:11 07/12/22 21:20 Temperature Temperature Source Pulse Rate 85 83 Pulse Rate from SpO2 Sensor 84 Respiratory Rate 20 21 Respiratory Effort / Characteristics Respiratory Depth Blood Pressure 110/62 Blood Pressure Mean 78 Pulse Oximetry 95 Oxygen Delivery Method Sepsis Recent Fever Within 48 Hours Sepsis New/Unexplained Change in Mental Status Sepsis Action Taken by Nursing 07/12/22 21:30 07/12/22 21:31 07/12/22 21:34 Temperature Temperature Source Pulse Rate 82 83 Pulse Rate from SpO2 Sensor 83 83 Respiratory Rate 21 19 Respiratory Effort / Characteristics Respiratory Depth Blood Pressure 82/62 L Blood Pressure Mean 68 Pulse Oximetry 94 94 Oxygen Delivery Method Sepsis Recent Fever Within 48 Hours Sepsis New/Unexplained Change in Mental Status Sepsis Action Taken by Nursing 07/12/22 21:34 07/12/22 21:40 07/12/22 21:50 Temperature Temperature Source Pulse Rate 82 83 83 Pulse Rate from SpO2 Sensor 84 83 Respiratory Rate 17 18 20 Respiratory Effort / Characteristics Respiratory Depth Blood Pressure Blood Pressure Mean Pulse Oximetry 94 95 Oxygen Delivery Method Sepsis Recent Fever Within 48 Hours Sepsis New/Unexplained Change in Mental Status Sepsis Action Taken by Nursing 07/12/22 21:45 07/12/22 21:45 Temperature Temperature Source Pulse Rate Pulse Rate from SpO2 Sensor Respiratory Rate Respiratory Effort / Characteristics Non-Labored Non-Labored Respiratory Depth Normal Normal Blood Pressure Blood Pressure Mean Pulse Oximetry Oxygen Delivery Method Sepsis Recent Fever Within 48 Hours Sepsis New/Unexplained Change in Mental Status Sepsis Action Taken by [facility] Medications Current Medication List: was personally reviewed by me Laboratory Data Attestation: I reviewed the patient's lab results. 07/12/22 20:05 07/12/22 20:05 Lab Results 07/12/22 07/12/22 07/12/22 Range/Units 20:05 20:05 20:05 WBC 23.78 H (4.8-10.8) K/ul RBC 3.54 L (4.70-6.10) M/uL Hgb 11.4 L (14.0-18.0) g/dl Hct 34.3 L (42.0-52.0) % MCV 96.9 (80.0-100.0) fL MCH 32.2 (25.0-34.0) pg MCHC 33.2 (32.0-36.0) g/dL RDW Std Deviation 50.4 H (36.4-46.3) fL RDW Coeff of Inderjit 14.0 (11.5-14.5) % Plt Count 141 (130-400) K/uL MPV 10.0 (9.4-12.4) fL Immature Gran % (Auto) 2.3 % Neut % (Auto) 86.5 % Lymph % (Auto) 5.8 % [place] % (Auto) 5.0 % Eos % (Auto) 0.1 % Baso % (Auto) 0.3 % Neut # (Auto) 20.58 H (1.40-6.50) K/uL Lymph # (Auto) 1.38 (1.2-3.4) K/uL [place] # (Auto) 1.19 H (0.11-0.59) K/uL Eos # (Auto) 0.02 (0-0.50) K/uL Baso # (Auto) 0.06 (0-0.2) K/uL Immature Gran # (Auto) 0.55 H (0.01-0.20) K/uL PT 12.2 H (9.0-12.0) Seconds INR 1.1 (0.9-1.1) APTT 30.7 (21.0-31.0) Seconds PTT Ratio 1.1 Sodium 132 L (136-145) mmol/L Potassium 4.5 (3.5-5.1) mmol/L Chloride 85 L (98-107) mmol/L Carbon Dioxide 34 H (21-32) mmol/L Anion Gap 13 H (3-11) BUN 36 H (6-23) mg/dl Creatinine 8.28 H* (0.6-1.4) mg/dl Est Cr Clr Drug Dosing 10.9 ml/min Est GFR ( Amer) 7.1 ml/min Est GFR (Non-Af Amer) 6.1 ml/min BUN/Creatinine Ratio 4.3 L (10-20) Glucose 168 H (70-99(Fasting)) mg/dl Lactate (0.4-2.0) mmol/L Calcium 9.1 (8.6-10.3) mg/dl Magnesium 1.6 L (1.7-2.4) mg/dl Total Bilirubin 1.4 H (0.2-1.0) mg/dl Direct Bilirubin 0.4 H (0-0.2) mg/dl AST 13 (13-39) U/L ALT 8 (7-52) U/L Alkaline Phosphatase 108 H (34-104) U/L Troponin I High Sens 21.9 H (0-20) pg/ml Total Protein 7.3 (6.0-8.3) gm/dl Albumin 3.8 (3.4-5.0) gm/dl Procalcitonin (0-0.5) ng/ml SARS-CoV-2 (PCR) (Negative) Influenza Type A (PCR) (Neg) Influenza Type B (PCR) (Neg) RSV (RT-PCR) (Neg) 07/12/22 07/12/22 07/12/22 Range/Units 20:05 20:05 21:15 WBC (4.8-10.8) K/ul RBC (4.70-6.10) M/uL Hgb (14.0-18.0) g/dl Hct (42.0-52.0) % MCV (80.0-100.0) fL MCH (25.0-34.0) pg MCHC (32.0-36.0) g/dL RDW Std Deviation (36.4-46.3) fL RDW Coeff of Inderjit (11.5-14.5) % Plt Count (130-400) K/uL MPV (9.4-12.4) fL Immature Gran % (Auto) % Neut % (Auto) % Lymph % (Auto) % [place] % (Auto) % Eos % (Auto) % Baso % (Auto) % Neut # (Auto) (1.40-6.50) K/uL Lymph # (Auto) (1.2-3.4) K/uL [place] # (Auto) (0.11-0.59) K/uL Eos # (Auto) (0-0.50) K/uL Baso # (Auto) (0-0.2) K/uL Immature Gran # (Auto) (0.01-0.20) K/uL PT (9.0-12.0) Seconds INR (0.9-1.1) APTT (21.0-31.0) Seconds PTT Ratio Sodium (136-145) mmol/L Potassium (3.5-5.1) mmol/L Chloride (98-107) mmol/L Carbon Dioxide (21-32) mmol/L Anion Gap (3-11) BUN (6-23) mg/dl Creatinine (0.6-1.4) mg/dl Est Cr Clr Drug Dosing ml/min Est GFR ( Amer) ml/min Est GFR (Non-Af Amer) ml/min BUN/Creatinine Ratio (10-20) Glucose (70-99(Fasting)) mg/dl Lactate 4.3 H* (0.4-2.0) mmol/L Calcium (8.6-10.3) mg/dl Magnesium (1.7-2.4) mg/dl Total Bilirubin (0.2-1.0) mg/dl Direct Bilirubin (0-0.2) mg/dl AST (13-39) U/L ALT (7-52) U/L Alkaline Phosphatase (34-104) U/L Troponin I High Sens (0-20) pg/ml Total Protein (6.0-8.3) gm/dl Albumin (3.4-5.0) gm/dl Procalcitonin 7.56 H (0-0.5) ng/ml SARS-CoV-2 (PCR) NEGATIVE (Negative) Influenza Type A (PCR) Negative (Neg) Influenza Type B (PCR) Negative (Neg) RSV (RT-PCR) Negative (Neg) 07/12/22 Range/Units 21:59 WBC (4.8-10.8) K/ul RBC (4.70-6.10) M/uL Hgb (14.0-18.0) g/dl Hct (42.0-52.0) % MCV (80.0-100.0) fL MCH (25.0-34.0) pg MCHC (32.0-36.0) g/dL RDW Std Deviation (36.4-46.3) fL RDW Coeff of Inderjit (11.5-14.5) % Plt Count (130-400) K/uL MPV (9.4-12.4) fL Immature Gran % (Auto) % Neut % (Auto) % Lymph % (Auto) % [place] % (Auto) % Eos % (Auto) % Baso % (Auto) % Neut # (Auto) (1.40-6.50) K/uL Lymph # (Auto) (1.2-3.4) K/uL [place] # (Auto) (0.11-0.59) K/uL Eos # (Auto) (0-0.50) K/uL Baso # (Auto) (0-0.2) K/uL Immature Gran # (Auto) (0.01-0.20) K/uL PT (9.0-12.0) Seconds INR (0.9-1.1) APTT (21.0-31.0) Seconds PTT Ratio Sodium (136-145) mmol/L Potassium (3.5-5.1) mmol/L Chloride (98-107) mmol/L Carbon Dioxide (21-32) mmol/L Anion Gap (3-11) BUN (6-23) mg/dl Creatinine (0.6-1.4) mg/dl Est Cr Clr Drug Dosing ml/min Est GFR ( Amer) ml/min Est GFR (Non-Af Amer) ml/min BUN/Creatinine Ratio (10-20) Glucose (70-99(Fasting)) mg/dl Lactate 2.6 H* (0.4-2.0) mmol/L Calcium (8.6-10.3) mg/dl Magnesium (1.7-2.4) mg/dl Total Bilirubin (0.2-1.0) mg/dl Direct Bilirubin (0-0.2) mg/dl AST (13-39) U/L ALT (7-52) U/L Alkaline Phosphatase (34-104) U/L Troponin I High Sens (0-20) pg/ml Total Protein (6.0-8.3) gm/dl Albumin (3.4-5.0) gm/dl Procalcitonin (0-0.5) ng/ml SARS-CoV-2 (PCR) (Negative) Influenza Type A (PCR) (Neg) Influenza Type B (PCR) (Neg) RSV (RT-PCR) (Neg) Administered Medications Discontinued Medications Sodium Chloride (Nss 1000ml) 500 mls @ 999 mls/hr IV .Q31M ONE Stop: 07/12/22 20:30 Last Infusion: 07/12/22 21:16 Dose: 0 mls/hr Documented By: Admin: 07/12/22 20:45 Dose: 999 mls/hr Documented By: JESSICA Cefepime HCl (Maxipime) 2,000 mg in 20 mls @ 5 mls/min IV NOW STA; Protocol Stop: 07/12/22 20:03 Last Admin: 07/12/22 20:45 Dose: 5 mls/min Documented By: JESSICA Sodium Chloride (Nss 1000ml) 500 mls @ 999 mls/hr IV .Q31M ONE Stop: 07/12/22 21:23 Last Infusion: 07/12/22 21:48 Dose: 0 mls/hr Documented By: Admin: 07/12/22 21:17 Dose: 999 mls/hr Documented By: MJJ Imaging Data Attestation: I personally reviewed and interpreted this imaging study as follows: My Impression: Chest x-ray: Per my review, there appears to be some chronic change at the left base, no obvious pneumonia, no CHF Radiologist's Impression: Head CT 07/12/22 20:00 Exam(s): CT HEAD Without Contrast EXAM: CT Head Without Intravenous Contrast CLINICAL HISTORY: Reason for exam: weakness, falling. TECHNIQUE: Axial computed tomography images of the head/brain without intravenous contrast. CTDI is 63.23 mGy and DLP is 1100.35 mGy-cm. Automated exposure control was utilized for the study. A dose lowering technique was utilized adhering to the principles of ALARA. COMPARISON: No relevant prior studies available. FINDINGS: No acute intracranial hemorrhage. No midline shift or mass effect. The territorial nath-white matter differentiation is maintained throughout. Age-related cerebral volume loss. Periventricular and subcortical white matter hypoattenuation, consistent with chronic microangiopathy. The visualized orbits appear grossly unremarkable. The calvarium is intact. The visualized paranasal sinuses and mastoid air cells are grossly clear. IMPRESSION: No acute intracranial hemorrhage, midline shift, or mass effect. Electronically signed by: Jacob Main MD 07/12/22 21:25 PM Abdomen/Pelvis CT 07/12/22 20:19 Exam(s): CT ABDOMEN + PELVIS Without Contrast EXAM: CT Abdomen and Pelvis Without Intravenous Contrast CLINICAL HISTORY: Reason for exam: flank pain. TECHNIQUE: Axial computed tomography images of the abdomen and pelvis without intravenous contrast. CTDI is 20.72 mGy and DLP is 1070.38 mGy-cm. Automated exposure control was utilized for the study. A dose lowering technique was utilized adhering to the principles of ALARA. COMPARISON: No relevant prior studies available. FINDINGS: Lung bases: Unremarkable. No mass. No consolidation. Pleural space: RIGHT basal pleural calcifications, correlate for history of asbestos exposure. ABDOMEN: Liver: Unremarkable. Gallbladder and bile ducts: Cholelithiasis. No ductal dilation. Pancreas: Unremarkable. No ductal dilation. Spleen: Unremarkable. No splenomegaly. Adrenals: Unremarkable. No mass. Kidneys and ureters: Bilateral renal atrophy. No obstructing stones. No hydronephrosis. Stomach and bowel: Diverticulosis, without acute diverticulitis. No small bowel obstruction. No free intraperitoneal air. PELVIS: Appendix: Appendectomy. Bladder: Wall thickening of the urinary bladder with pericystic inflammation, highly concerning for UTI. Urinalysis recommended. No stones. Reproductive: Unremarkable as visualized. ABDOMEN and PELVIS: Intraperitoneal space: Unremarkable. No free air. No significant fluid collection. Bones/joints: Degenerative changes of the spine. No acute fracture. No dislocation. Soft tissues: Small fat-containing bilateral inguinal hernias. Vasculature: Atherosclerotic changes of the aorta. No abdominal aortic aneurysm. Lymph nodes: Unremarkable. No enlarged lymph nodes. IMPRESSION: Wall thickening of the urinary bladder with pericystic inflammation, highly concerning for UTI. Urinalysis recommended. Electronically signed by: Jacob Main MD 07/12/22 21:29 PM Discharge Plan Visit Data Chief Complaint: Illness Stated Complaint: DIZZINESS AND OTHER DIFUSE COMPLAINTS ED Provider: Donnell Hilliard Discharge Problem: Sepsis, Hypotension, Leukocytosis, Acute UTI, Dialysis patient Patient Disposition: Admitted As Inpatient Condition: Serious Forms Stand Alone Forms: My [facility] [employer] Prescriptions Prescriptions: No Action sertraline [Zoloft] 50 mg tablet 50 mg PO DAILY Qty: 90 3RF omeprazole 20 mg capsule,delayed release(DR/EC) 20 mg PO DAILY Qty: 90 3RF rosuvastatin [Crestor] 10 mg tablet 10 mg PO HS Qty: 90 3RF calcium acetate(phosphat bind) 667 mg capsule 667 mg PO TID Qty: 90 0RF Rx Instructions: with meals insulin glargine [Lantus Solostar U-100 Insulin] 100 unit/mL (3 mL) insulin pen 15 unit SC QAM Qty: 15 5RF cetirizine 10 mg tablet 10 mg PO DAILY Qty: 90 3RF (DME) pen needle, diabetic [BD Ultra-Fine Short Pen Needle] 31 gauge x 5/16" needle See Rx Instructions .Route Qty: 100 3RF Rx Instructions: As directed ciprofloxacin HCl 500 mg tablet 500 mg PO DAILY Qty: 7 0RF Rx Instructions: Take after dialysis. STARTED 07/12/22 FOR 7 DAYS (DME) Assure ID Pen Needle 30 gauge x 3/16" needle See Rx Instructions .Route Qty: 100 4RF Rx Instructions: as directed - daily once docusate sodium 100 mg capsule 100 mg PO BID escitalopram oxalate 10 mg tablet 20 mg PO DAILY Glucagon Emergency Kit (human) 1 mg recon soln See Rx Instructions IM .COMPLEX Rx Instructions: intramuscularly PRN NEEDED FOR HYPOGLYCEMIA BLOOD GLUCOSE <60 AND SYMPTOMATIC/UNRESPONSIVE. MAY REPEAT IN 15 MINUTES IF NEEDED.; meclizine 12.5 mg tablet 12.5 mg PO Q6H PRN (Reason: Dizziness) (DME) OneTouch Verio test strips Strip See Rx Instructions .Route Qty: 50 11RF Rx Instructions: Test once daily & as needed (DME) lancing device with lancets [[employer] Lanc Device] Kit See Rx Instructions .Route Qty: 1 0RF Rx Instructions: Test once daily & as needed (DME) lancets [WillCallTouch Delica Lancets] 33 gauge misc See Rx Instructions .Route Qty: 100 6RF Rx Instructions: Test once daily and as directed ergocalciferol (vitamin D2) [Vitamin D2] 1,250 mcg (50,000 unit) capsule 1,250 mcg PO WK Rx Instructions: Renal Caps 1 mg Capsule 1 cap PO DAILY carvedilol 6.25 mg tablet 6.25 mg PO DIRECTED Rx Instructions: give 1 tablet 2 times a day every thu,,sat,sun hold for <SBP 100 or HR<60 Referrals Referrals: Jagdeep Turk MD [Primary Care Provider] - Sepsis Qualifiers: Sepsis type: sepsis due to unspecified organism Sepsis acute organ dysfunction status: without acute organ dysfunction Qualified Code(s): A41.9 - Sepsis, unspecified organism Hypotension Qualifiers: Hypotension type: unspecified hypotension type Qualified Code(s): I95.9 - Hypotension, unspecified Leukocytosis Qualifiers: Leukocytosis type: unspecified Qualified Code(s): D72.829 - Elevated white blood cell count, unspecified
[2022-07-12 20:22] LABS: Hematocrit (blood only) 34.3 % (42.0-52.0); Hemoglobin 11.4 g/dl (14.0-18.0); Mean Corpuscular Hemoglobin 32.2 pg (25.0-34.0); Mean Corpuscular Hgb Conc 33.2 g/dL (32.0-36.0); Mean Corpuscular Volume 96.9 fL (80.0-100.0); Platelet Count 141 K/uL (130-400); RDW Standard Deviation 50.4 fL (36.4-46.3); Red Blood Count 3.54 M/uL (4.70-6.10); White Blood Count 23.78 K/ul (4.8-10.8)
[2022-07-12] MEDS ORDERED: DAPTOmycin 525 MG in SYRINGE 0 ML IV SCH (20:30)
[2022-07-12 20:38] LABS: Basophils # (auto) 0.06 K/uL (0-0.2); Basophils % (auto) 0.3 %; Eosinophils # (auto) 0.02 K/uL (0-0.50); Eosinophils % (auto) 0.1 %; Immature Granulocytes # (auto) 0.55 K/uL (0.01-0.20); Immature Granulocytes % (auto) 2.3 %; Lymphocytes # (auto) 1.38 K/uL (1.2-3.4); Lymphocytes % (auto) 5.8 %; Monocytes # (auto) 1.19 K/uL (0.11-0.59); Neutrophils # (auto) 20.58 K/uL (1.40-6.50); Neutrophils % (auto) 86.5 %
[2022-07-12 20:49] LABS: Albumin Level 3.8 gm/dl (3.4-5.0); BUN Creatinine Ratio 4.3 (10-20); Bilirubin Direct 0.4 mg/dl (0-0.2); Bilirubin,Total 1.4 mg/dl (0.2-1.0); Calcium 9.1 mg/dl (8.6-10.3); Creatinine Clr Calc Pharmacy 10.9 ml/min; Est GFR (African American) 7.1 ml/min; Est GFR (Non-African American) 6.1 ml/min; Magnesium 1.6 mg/dl (1.7-2.4); Potassium 4.5 mmol/L (3.5-5.1); Total Protein 7.3 gm/dl (6.0-8.3); Troponin I High Sensitivity 21.9 pg/ml (0-20)
[2022-07-12 20:52] LABS: INR 1.1 (0.9-1.1); Partial Thromboplastin Ratio 1.1; Partial Thromboplastin Time 30.7 Seconds (21.0-31.0); Prothrombin Time 12.2 Seconds (9.0-12.0)
--- NOTE | 2022-07-12 21:26 | CT Scan Report ---
Exam(s): CT HEAD Without Contrast EXAM: CT Head Without Intravenous Contrast CLINICAL HISTORY: Reason for exam: weakness, falling. TECHNIQUE: Axial computed tomography images of the head/brain without intravenous contrast. CTDI is 63.23 mGy and DLP is 1100.35 mGy-cm. Automated exposure control was utilized for the study. A dose lowering technique was utilized adhering to the principles of ALARA. COMPARISON: No relevant prior studies available. FINDINGS: No acute intracranial hemorrhage. No midline shift or mass effect. The territorial nath-white matter differentiation is maintained throughout. Age-related cerebral volume loss. Periventricular and subcortical white matter hypoattenuation, consistent with chronic microangiopathy. The visualized orbits appear grossly unremarkable. The calvarium is intact. The visualized paranasal sinuses and mastoid air cells are grossly clear. IMPRESSION: No acute intracranial hemorrhage, midline shift, or mass effect. Electronically signed by: Jacob Main MD 07/12/22 21:25 PM
--- NOTE | 2022-07-12 21:30 | CT Scan Report ---
Exam(s): CT ABDOMEN + PELVIS Without Contrast EXAM: CT Abdomen and Pelvis Without Intravenous Contrast CLINICAL HISTORY: Reason for exam: flank pain. TECHNIQUE: Axial computed tomography images of the abdomen and pelvis without intravenous contrast. CTDI is 20.72 mGy and DLP is 1070.38 mGy-cm. Automated exposure control was utilized for the study. A dose lowering technique was utilized adhering to the principles of ALARA. COMPARISON: No relevant prior studies available. FINDINGS: Lung bases: Unremarkable. No mass. No consolidation. Pleural space: RIGHT basal pleural calcifications, correlate for history of asbestos exposure. ABDOMEN: Liver: Unremarkable. Gallbladder and bile ducts: Cholelithiasis. No ductal dilation. Pancreas: Unremarkable. No ductal dilation. Spleen: Unremarkable. No splenomegaly. Adrenals: Unremarkable. No mass. Kidneys and ureters: Bilateral renal atrophy. No obstructing stones. No hydronephrosis. Stomach and bowel: Diverticulosis, without acute diverticulitis. No small bowel obstruction. No free intraperitoneal air. PELVIS: Appendix: Appendectomy. Bladder: Wall thickening of the urinary bladder with pericystic inflammation, highly concerning for UTI. Urinalysis recommended. No stones. Reproductive: Unremarkable as visualized. ABDOMEN and PELVIS: Intraperitoneal space: Unremarkable. No free air. No significant fluid collection. Bones/joints: Degenerative changes of the spine. No acute fracture. No dislocation. Soft tissues: Small fat-containing bilateral inguinal hernias. Vasculature: Atherosclerotic changes of the aorta. No abdominal aortic aneurysm. Lymph nodes: Unremarkable. No enlarged lymph nodes. IMPRESSION: Wall thickening of the urinary bladder with pericystic inflammation, highly concerning for UTI. Urinalysis recommended. Electronically signed by: Jacob Main MD 07/12/22 21:29 PM
[2022-07-12 22:16] LABS: Influenza A virus by PCR Negative (Neg); Influenza B virus by PCR Negative (Neg); RSV by PCR Negative (Neg); SARS CoV2 RNA(COVID-19) Ceph NEGATIVE (Negative)
[2022-07-12] MEDS ORDERED: MAGNESIUM SULFATE / D5W 1 GM/100 ML BAG IV ONE (22:38)
--- NOTE | 2022-07-12 22:39 | History & Physical Report ---
Date of Service July 12, 2022 Assessment & Plan (1) Sepsis due to urinary tract infection: (2) Hypotension: (3) ESRD (end stage renal disease) on dialysis: (4) Gout: (5) GERD (gastroesophageal reflux disease): (6) Hypoalbuminemia: (7) Diabetes mellitus with hyperglycemia: (8) Proteinuria: Plan Sepsis due to UTI/hypotension- Blood pressure slows in ED was 71/51- Patient did receive a total of 1 L of normal saline bolus with response in blood pressure to mid 80s to low 100 systolic Follow urine culture and sensitivity Continue empiric daptomycin and cefepime IV DC Cipro Continue B complex, calcium acetate, ergocalciferol Consult nephrology Dr. Marte Hypertension- Reduce carvedilol to 3.125 mg p.o. twice daily with hold parameters to systolic 110 Diabetes mellitus- Reduce glargine from 15 to 60 units subcu every morning Placed on Accu-Cheks with NovoLog SSI Anxiety with depression- Continue sertraline, escitalopram GERD- Change omeprazole to pantoprazole Allergy symptoms- Continue cetirizine History of Present Illness Chief Complaint: The patient presents to the emergency department with complaint of several days of feeling lightheaded, dizzy, gets worse with standing to the point of almost passing out. His thinking has been groggy, and he has some intermittent headaches. He also complains of some left flank pain that is sometimes worsened with movement. The patient reports he was told at dialysis yesterday that he probably had a UTI, and was started on oral Cipro 500 mg daily, of which he is taken 1 dose so far. He does still produce small volumes of urine. Primary Care Provider: Jagdeep Turk MD The patient is a 67-year-old male with past medical history including ESRD on HD, gout, anemia, hypertension, GERD, hypoalbuminemia, diabetes mellitus, hypertension, constipation, and anxiety with depression. He presents to the emergency department with symptoms as noted above. Significant abnormal laboratories: WBC 23.78, hemoglobin 11.4, hematocrit 34.3, creatinine 8.28, glucose 168, lactate 4.3, magnesium 1.6, total bili 1.4 and direct bilirubin 0.4, troponin 21.9 and Pro-Victor Manuel 7.36 CT scan of abdomen and pelvis without contrast showed wall thickening of the urinary bladder with pericystic inflammation, highly concerning for UTI Allergies Allergy/AdvReac Type Severity Reaction Status Date / Time atorvastatin [From Lipitor] Allergy Unknown CAN'T Verified 07/12/22 20:24 REMEMBER simvastatin [From Zocor] Allergy Unknown CAN'T Verified 07/12/22 20:24 REMEMBER codeine AdvReac Intermediate Nausea Verified 07/12/22 20:24 Home Medications Medication Instructions Recorded Confirmed Type ergocalciferol (vitamin D2) 1,250 1,250 mcg PO WK 05/19/21 07/12/22 History mcg (50,000 unit) capsule (Vitamin D2) vitamin B complex and vitamin C 1 cap PO DAILY 05/19/21 07/12/22 History no.20-folic acid 1 mg capsule (Renal Caps) blood sugar diagnostic ([employer] #50 ea 10/08/21 02/11/22 Rx Verio test strips) docusate sodium 100 mg capsule 100 mg PO BID 10/08/21 07/12/22 History escitalopram oxalate 10 mg tablet 20 mg PO DAILY 10/08/21 07/12/22 History glucagon 1 mg solution for See Rx Instructions IM .COMPLEX 10/08/21 07/12/22 History injection (Glucagon Emergency Kit) lancets 33 gauge ([employer] #100 ea 10/08/21 02/11/22 Rx Lancets) lancing device with lancets kit #1 ea 10/08/21 02/11/22 Rx ([employer] Lancing Device kit) meclizine 12.5 mg tablet 12.5 mg PO Q6H PRN Dizziness 10/08/21 07/12/22 History omeprazole 20 mg capsule,delayed 20 mg PO DAILY #90 caps 10/28/21 07/12/22 Rx release sertraline 50 mg tablet (Zoloft) 50 mg PO DAILY #90 tabs 10/28/21 07/12/22 Rx calcium acetate(phosphat bind) 667 667 mg PO TID #90 caps 11/22/21 07/12/22 Rx mg capsule insulin glargine 100 unit/mL (3 15 unit (0.15 mL) SC QAM #15 mL 11/22/21 07/12/22 Rx mL) subcutaneous pen (Lantus Solostar U-100 Insulin) rosuvastatin 10 mg tablet (Crestor) 10 mg PO HS #90 tabs 11/22/21 07/12/22 Rx cetirizine 10 mg tablet 10 mg PO DAILY #90 tabs 12/23/21 07/12/22 Rx pen needle, diabetic 31 gauge x #100 ea 02/04/22 02/11/22 Rx 5/16" (BD Ultra-Fine Short Pen Needle) pen needle, diabetic, safety 30 #100 ea 02/11/22 02/11/22 Rx gauge x 3/16" (Assure ID Pen Needle) ciprofloxacin HCl 500 mg tablet 500 mg PO DAILY #7 tabs 07/11/22 07/12/22 Rx carvedilol 6.25 mg tablet 6.25 mg PO DIRECTED 07/12/22 07/12/22 History Past Med/Surg History Medical History Anemia Carpal tunnel syndrome of right wrist Diabetes mellitus with hyperglycemia Elevated troponin I level ESRD (end stage renal disease) on dialysis GERD (gastroesophageal reflux disease) Gout Gout of knee Hyperbilirubinemia Hypertension Osteoarthritis of knees, bilateral Vertigo Surgical History History of appendectomy History of incision and drainage Family History Mother Cancer Denies family history of Ovarian cancer Prostate cancer Myocardial infarction Breast cancer Colorectal cancer Social History Smoking Status: Never smoker Second Hand Exposure: No; Do You Dip or Chew Tobacco: No; Hx Alcohol Use: No Hx Substance Use: No Preferred Language: Belarusian Communication Ability: Effective Slot Host Required: No Beliefs That Will Affect Care: None marital status: single Current Living Situation: Alone current occupational status: employed Other Information That Helps Us Care for You: No Feels Safe at Home: Yes Safety Concerns: Feels Safe At This Time Diet: regular caffeine: Yes Dental Care, Regularly: No Seatbelt Use: always Sunscreen Use: No Assistive Devices: Walker and Wheelchair Review of Systems Review of Systems: The patient denies chest pain, palpitations, shortness of breath, dyspnea on exertion, cough, lower extremity swelling, sore throat, fevers, chills, sweats, nausea, vomiting, diarrhea , constipation, blood in urine or stool, dysuria, urinary frequency or urgency, lightheadedness, dizziness, headache, memory loss, loss of consciousness, rash, abnormal bruising or bleeding, imbalance, focal or generalized weakness, numbness or tingling in arms or legs, neck pain, or night sweats. The review of systems is otherwise negative other than for that already noted above, and at least 10 systems have been reviewed. Physical Exam Physical Exam: The patient is awake, alert and oriented 3, well developed and well nourished, normocephalic and atraumatic, lying in bed and in no acute distress. HEENT--PERRL, EOMI, mucous membranes and oropharynx dry. Neck--supple. No JVD. No bruits. Thyroid normal, trachea midline, no adenopathy. Heart--normal S1 and S2. No murmurs, rubs or gallops. Lungs--clear bilaterally, no respiratory distress, no accessory muscle use. Abdomen--normal bowel sounds and soft. Nontender. Nondistended, no hernias or masses, no organomegaly. Extremities--no cyanosis or clubbing. No edema. Dermatologic--normal skin turgor, normal color, no abnormal lymph nodes, no rash. Neurologic--cranial nerves II through XII grossly intact. Rheumatologic--normal range of motion. Psychiatric--normal affect. Results & Data Results & Data Vital Signs (Past 12 Hours) Vital Signs Temp Pulse Resp BP Pulse Ox O2 Del Method 07/12/22 22:20 82 16 93 07/12/22 22:10 85 16 94 07/12/22 22:00 85 21 96 07/12/22 22:00 101/56 L 07/12/22 21:50 83 20 95 07/12/22 21:40 83 18 94 07/12/22 21:34 82 17 07/12/22 21:34 82/62 L 07/12/22 21:31 83 19 94 07/12/22 21:30 82 21 94 07/12/22 21:20 83 21 95 07/12/22 21:11 85 20 07/12/22 21:11 110/62 07/12/22 21:10 83 20 07/12/22 20:40 85 21 07/12/22 20:38 85 17 07/12/22 20:38 94/46 L 07/12/22 20:31 71/57 L 07/12/22 20:31 91 H 18 07/12/22 20:30 17 07/12/22 20:20 84 25 H 07/12/22 20:10 84 19 07/12/22 20:00 85 21 90 07/12/22 20:00 95/61 L 07/12/22 19:56 103/68 07/12/22 19:56 84 16 97 07/12/22 19:50 83 20 96 07/12/22 20:00 83 07/12/22 20:00 93 Room Air 07/12/22 19:47 36.9 C 84 20 81/57 L 97 Room Air Laboratory Results Laboratory Results WBC 23.78 K/ul (4.8-10.8) H 07/12/22 20:05 RBC 3.54 M/uL (4.70-6.10) L 07/12/22 20:05 Hgb 11.4 g/dl (14.0-18.0) L 07/12/22 20:05 Hct 34.3 % (42.0-52.0) L 07/12/22 20:05 MCV 96.9 fL (80.0-100.0) 07/12/22 20:05 MCH 32.2 pg (25.0-34.0) 07/12/22 20:05 MCHC 33.2 g/dL (32.0-36.0) 07/12/22 20:05 RDW Std Deviation 50.4 fL (36.4-46.3) H 07/12/22 20:05 RDW Coeff of Inderjit 14.0 % (11.5-14.5) 07/12/22 20:05 Plt Count 141 K/uL (130-400) 07/12/22 20:05 MPV 10.0 fL (9.4-12.4) 07/12/22 20:05 Immature Gran % (Auto) 2.3 % 07/12/22 20:05 Neut % (Auto) 86.5 % 07/12/22 20:05 Lymph % (Auto) 5.8 % 07/12/22 20:05 [place] % (Auto) 5.0 % 07/12/22 20:05 Eos % (Auto) 0.1 % 07/12/22 20:05 Baso % (Auto) 0.3 % 07/12/22 20:05 Neut # (Auto) 20.58 K/uL (1.40-6.50) H 07/12/22 20:05 Lymph # (Auto) 1.38 K/uL (1.2-3.4) 07/12/22 20:05 [place] # (Auto) 1.19 K/uL (0.11-0.59) H 07/12/22 20:05 Eos # (Auto) 0.02 K/uL (0-0.50) 07/12/22 20:05 Baso # (Auto) 0.06 K/uL (0-0.2) 07/12/22 20:05 Immature Gran # (Auto) 0.55 K/uL (0.01-0.20) H 07/12/22 20:05 PT 12.2 Seconds (9.0-12.0) H 07/12/22 20:05 INR 1.1 (0.9-1.1) 07/12/22 20:05 APTT 30.7 Seconds (21.0-31.0) 07/12/22 20:05 PTT Ratio 1.1 07/12/22 20:05 Sodium 132 mmol/L (136-145) L 07/12/22 20:05 Potassium 4.5 mmol/L (3.5-5.1) 07/12/22 20:05 Chloride 85 mmol/L (98-107) L 07/12/22 20:05 Carbon Dioxide 34 mmol/L (21-32) H 07/12/22 20:05 Anion Gap 13 (3-11) H 07/12/22 20:05 BUN 36 mg/dl (6-23) H 07/12/22 20:05 Creatinine 8.28 mg/dl (0.6-1.4) H* 07/12/22 20:05 Est Cr Clr Drug Dosing 10.9 ml/min 07/12/22 20:05 Est GFR ( Amer) 7.1 ml/min 07/12/22 20:05 Est GFR (Non-Af Amer) 6.1 ml/min 07/12/22 20:05 BUN/Creatinine Ratio 4.3 (10-20) L 07/12/22 20:05 Glucose 168 mg/dl (70-99(Fasting)) H 07/12/22 20:05 POC Glucose 163 mg/dl (70-99) H 07/13/22 00:59 Lactate 2.6 mmol/L (0.4-2.0) H* 07/12/22 21:59 Calcium 9.1 mg/dl (8.6-10.3) 07/12/22 20:05 Magnesium 1.6 mg/dl (1.7-2.4) L 07/12/22 20:05 Total Bilirubin 1.4 mg/dl (0.2-1.0) H 07/12/22 20:05 Direct Bilirubin 0.4 mg/dl (0-0.2) H 07/12/22 20:05 AST 13 U/L (13-39) 07/12/22 20:05 ALT 8 U/L (7-52) 07/12/22 20:05 Alkaline Phosphatase 108 U/L (34-104) H 07/12/22 20:05 Troponin I High Sens 21.9 pg/ml (0-20) H 07/12/22 20:05 Total Protein 7.3 gm/dl (6.0-8.3) 07/12/22 20:05 Albumin 3.8 gm/dl (3.4-5.0) 07/12/22 20:05 Procalcitonin 7.56 ng/ml (0-0.5) H 07/12/22 20:05 Nasal Screen MRSA (PCR) Positive (Negative) A 07/13/22 Unknown SARS-CoV-2 (PCR) NEGATIVE (Negative) 07/12/22 21:15 Influenza Type A (PCR) Negative (Neg) 07/12/22 21:15 Influenza Type B (PCR) Negative (Neg) 07/12/22 21:15 RSV (RT-PCR) Negative (Neg) 07/12/22 21:[address] 07/12/22 20:00 Exam(s): CT HEAD Without Contrast EXAM: CT Head Without Intravenous Contrast CLINICAL HISTORY: Reason for exam: weakness, falling. TECHNIQUE: Axial computed tomography images of the head/brain without intravenous contrast. CTDI is 63.23 mGy and DLP is 1100.35 mGy-cm. Automated exposure control was utilized for the study. A dose lowering technique was utilized adhering to the principles of ALARA. COMPARISON: No relevant prior studies available. FINDINGS: No acute intracranial hemorrhage. No midline shift or mass effect. The territorial nath-white matter differentiation is maintained throughout. Age-related cerebral volume loss. Periventricular and subcortical white matter hypoattenuation, consistent with chronic microangiopathy. The visualized orbits appear grossly unremarkable. The calvarium is intact. The visualized paranasal sinuses and mastoid air cells are grossly clear. IMPRESSION: No acute intracranial hemorrhage, midline shift, or mass effect. Electronically signed by: Jacob Main MD 07/12/22 21:25 PM Abdomen/Pelvis CT 07/12/22 20:19 Exam(s): CT ABDOMEN + PELVIS Without Contrast EXAM: CT Abdomen and Pelvis Without Intravenous Contrast CLINICAL HISTORY: Reason for exam: flank pain. TECHNIQUE: Axial computed tomography images of the abdomen and pelvis without intravenous contrast. CTDI is 20.72 mGy and DLP is 1070.38 mGy-cm. Automated exposure control was utilized for the study. A dose lowering technique was utilized adhering to the principles of ALARA. COMPARISON: No relevant prior studies available. FINDINGS: Lung bases: Unremarkable. No mass. No consolidation. Pleural space: RIGHT basal pleural calcifications, correlate for history of asbestos exposure. ABDOMEN: Liver: Unremarkable. Gallbladder and bile ducts: Cholelithiasis. No ductal dilation. Pancreas: Unremarkable. No ductal dilation. Spleen: Unremarkable. No splenomegaly. Adrenals: Unremarkable. No mass. Kidneys and ureters: Bilateral renal atrophy. No obstructing stones. No hydronephrosis. Stomach and bowel: Diverticulosis, without acute diverticulitis. No small bowel obstruction. No free intraperitoneal air. PELVIS: Appendix: Appendectomy. Bladder: Wall thickening of the urinary bladder with pericystic inflammation, highly concerning for UTI. Urinalysis recommended. No stones. Reproductive: Unremarkable as visualized. ABDOMEN and PELVIS: Intraperitoneal space: Unremarkable. No free air. No significant fluid collection. Bones/joints: Degenerative changes of the spine. No acute fracture. No dislocation. Soft tissues: Small fat-containing bilateral inguinal hernias. Vasculature: Atherosclerotic changes of the aorta. No abdominal aortic aneurysm. Lymph nodes: Unremarkable. No enlarged lymph nodes. IMPRESSION: Wall thickening of the urinary bladder with pericystic inflammation, highly concerning for UTI. Urinalysis recommended. Electronically signed by: Jacob Main MD 07/12/22 21:29 PM Code Status & VTE Plan Code Status Full code VTE Prophylaxis Plan VTE Prophylaxis will be ordered: Yes PG Care Time/CCT Total # of Minutes Spent Total Time Spent with Patient: Total time spent is greater than 50% in coordination of care (as documented) at patient's floor/unit and/or counseling patient: Coding Level of Care Code 18910 INT INP/OBS CARE 3/75MIN Diagnoses Sepsis due to urinary tract infection A41.9; N39.0 Hypotension I95.9 Hypotension type: unspecified hypotension type ESRD (end stage renal disease) on dialysis N18.6; Z99.2 Gout M10.9 GERD (gastroesophageal reflux disease) K21.9 Hypoalbuminemia E88.09 Diabetes mellitus with hyperglycemia E11.65 Proteinuria R80.9 (2) Hypotension Hypotension type: unspecified hypotension type Qualified Code(s): I95.9 - Hypotension, unspecified
[2022-07-13] MEDS ORDERED: CARBOHYDRATES FOR HYPOGLYCEMIA PO PRN (00:58)
[2022-07-13] MEDS ORDERED: ACETAMINOPHEN 325 MG TAB PO PRN (00:58)
[2022-07-13] MEDS ORDERED: DEXTROSE 50% 50 ML SYRINGE IV PRN (00:58)
[2022-07-13] MEDS ORDERED: GLUCOSE 10 TAB/TUBE PO PRN (00:58)
[2022-07-13] MEDS ORDERED: MECLIZINE 12.5 MG TAB PO PRN (00:58)
[2022-07-13] MEDS ORDERED: GLUCAGON FOR INJ 1 MG VIAL SQ PRN (00:58)
[2022-07-13] MEDS ORDERED: ONDANSETRON INJ 2 MG/ML 2 ML VIAL IV PRN (00:58)
[2022-07-13] MEDS ORDERED: GLUCOSE 40% GEL 15 GM TUBE PO PRN (00:58)
[2022-07-13] MEDS: NEPHROCAPS PO SCH (07:37)
[2022-07-13] MEDS: PANTOprazole 40 MG TAB PO SCH (07:38)
[2022-07-13] MEDS: SERTRALINE HCL 50 MG TABLET PO SCH (07:38)
[2022-07-13] MEDS: CALCIUM ACETATE 667 MG CAP/TAB PO SCH ×3 (07:38→18:16)
[2022-07-13] MEDS: ESCITALOPRAM OXALATE 20 MG TAB PO SCH (07:38)
[2022-07-13] MEDS: DOCUSATE SODIUM 100 MG CAP PO SCH ×2 (07:38→20:01)
[2022-07-13] MEDS: CETIRIZINE HCL 10 MG TABLET PO SCH (07:38)
[2022-07-13 08:03] LABS: Basophils # (auto) 0.04 K/uL (0-0.2); Basophils % (auto) 0.2 %; Eosinophils # (auto) 0.15 K/uL (0-0.50); Eosinophils % (auto) 0.9 %; Hematocrit (blood only) 28.4 % (42.0-52.0); Hemoglobin 9.7 g/dl (14.0-18.0); Immature Granulocytes # (auto) 0.29 K/uL (0.01-0.20); Immature Granulocytes % (auto) 1.8 %; Lymphocytes # (auto) 1.24 K/uL (1.2-3.4); Lymphocytes % (auto) 7.5 %; Mean Corpuscular Hemoglobin 31.9 pg (25.0-34.0); Mean Corpuscular Hgb Conc 34.2 g/dL (32.0-36.0); Mean Corpuscular Volume 93.4 fL (80.0-100.0); Mean Platelet Volume 10.3 fL (9.4-12.4); Monocytes # (auto) 1.01 K/uL (0.11-0.59); Monocytes % (auto) 6.1 %; Neutrophils # (auto) 13.73 K/uL (1.40-6.50); Neutrophils % (auto) 83.5 %; Platelet Count 107 K/uL (130-400); RDW Standard Deviation 47.5 fL (36.4-46.3); Red Blood Count 3.04 M/uL (4.70-6.10); White Blood Count 16.46 K/ul (4.8-10.8)
[2022-07-13] MEDS: INSULIN ASPART PER UNIT CHARGE SC SCH ×4 (08:35→20:09)
[2022-07-13] MEDS: LANTUS PER UNIT CHARGE SC SCH (08:36)
[2022-07-13 08:37] LABS: Albumin Globulin Ratio 1.1 (0.9-2); Albumin Level 3.2 gm/dl (3.4-5.0); BUN Creatinine Ratio 4.8 (10-20); Bilirubin,Total 0.9 mg/dl (0.2-1.0); Calcium 8.7 mg/dl (8.6-10.3); Creatinine Clr Calc Pharmacy 10.1 ml/min; Est GFR (African American) 6.5 ml/min; Est GFR (Non-African American) 5.6 ml/min; Globulin 2.9 gm/dl (2.5-4.0); Magnesium 1.6 mg/dl (1.7-2.4); Potassium 4.1 mmol/L (3.5-5.1); Total Protein 6.1 gm/dl (6.0-8.3); Troponin I High Sensitivity 15.9 pg/ml (0-20)
--- NOTE | 2022-07-13 09:08 | Hospitalist Progress Note ---
Date of Service July 13, 2022 Assessment & Plan (1) Sepsis due to urinary tract infection: Plan: Sepsis due to UTI/hypotension-did not get urine culture on admission, blood cultures obtained, will have st cath urine when patient able to make urine bladder scan did not show significant urine accumulation. Patient says he does urinate at home at some time. And when he did it was with dysuria pt was hypotensive on presentation, admitting reduced carvedilol now on hold Patient did receive a total of 1 L of normal saline bolus with response in blood pressure to mid 80s to low 100 systolic, total amount limited due to renal failure Given additional 500 ml in am of 07/13/22 empiric daptomycin and cefepime IV, MRSA screen positive Continue B complex, calcium acetate, ergocalciferol Consult nephrology Dr. Marte to manage renal replacement therapy (2) Diabetes mellitus with hyperglycemia: Plan: Diabetes mellitus- Reduce glargine from 15 to 6 units subcu every morning Placed on Accu-Cheks with NovoLog SSI (3) ESRD (end stage renal disease) on dialysis: Plan: continues on renal replacement therapy (4) Depression: Plan: Anxiety with depression- Continue sertraline, escitalopram Admission and Anticipated Discharge Date Admission Date: July 12, 2022 Subjective pt feels somewhat better but not near his baseline Physical Exam Physical Exam: Patient awake and alert despite lower blood pressure does not feel dizzy or lightheaded Cardiac exam is distant but regular lungs are clear abdomen NABS soft and nontender he has no suprapubic tenderness No skin changes there is no tender joints specifically his knees that he recently has had injections for arthritis Results & Data Results & Data Vital Signs (Past 12 Hours) Vital Signs Temp Pulse Pulse Resp BP BP Pulse Ox 07/13/22 09:05 83/51 L 07/13/22 08:41 99.0 F 80 19 75/46 L 94 07/13/22 06:23 94/67 L 07/13/22 03:05 98.1 F 74 18 85/50 L 97 07/13/22 02:38 80 07/13/22 01:20 07/13/22 00:58 98.1 F 78 18 124/54 L 92 07/13/22 00:15 81 07/13/22 00:30 83 17 07/13/22 00:30 103/59 L 07/13/22 00:20 88 18 07/13/22 00:10 82 14 07/13/22 00:00 81 19 07/13/22 00:00 87/54 L 07/12/22 23:50 87 18 07/12/22 23:40 84 20 07/12/22 23:30 82 22 07/12/22 23:20 83 18 07/12/22 23:10 82 20 07/12/22 23:00 81 15 07/12/22 23:00 84/53 L 07/12/22 22:50 81 17 07/12/22 22:40 83 16 07/12/22 22:33 90 17 07/12/22 22:33 111/54 L 07/12/22 22:31 88 19 07/12/22 22:30 88 20 07/12/22 22:20 82 16 93 07/12/22 22:10 85 16 94 07/12/22 22:00 85 21 96 07/12/22 22:00 101/56 L 07/12/22 21:50 83 20 95 07/12/22 21:40 83 18 94 07/12/22 21:34 82 17 07/12/22 21:34 82/62 L 07/12/22 21:31 83 19 94 07/12/22 21:30 82 21 94 07/12/22 21:20 83 21 95 07/12/22 21:11 85 20 07/12/22 21:11 110/62 07/12/22 21:10 83 20 O2 Del Method 07/13/22 09:05 07/13/22 08:41 Room Air 07/13/22 06:23 07/13/22 03:05 Room Air 07/13/22 02:38 07/13/22 01:20 Room Air 07/13/22 00:58 Room Air 07/13/22 00:15 07/13/22 00:30 07/13/22 00:30 07/13/22 00:20 07/13/22 00:10 07/13/22 00:00 07/13/22 00:00 07/12/22 23:50 07/12/22 23:40 07/12/22 23:30 07/12/22 23:20 07/12/22 23:10 07/12/22 23:00 07/12/22 23:00 07/12/22 22:50 07/12/22 22:40 07/12/22 22:33 07/12/22 22:33 07/12/22 22:31 07/12/22 22:30 07/12/22 22:20 07/12/22 22:10 07/12/22 22:00 07/12/22 22:00 07/12/22 21:50 07/12/22 21:40 07/12/22 21:34 07/12/22 21:34 07/12/22 21:31 07/12/22 21:30 07/12/22 21:20 07/12/22 21:11 07/12/22 21:11 07/12/22 21:10 Laboratory Results Reviewed CBC Reviewed PRP PG Care Time/CCT Total # of Minutes Spent Total Time Spent with Patient: Total time spent is greater than 50% in coordination of care (as documented) at patient's floor/unit and/or counseling patient: Coding Level of Care Code 42353 SUB INP/OBS CARE 2/35MIN Diagnoses Sepsis due to urinary tract infection A41.9; N39.0 Diabetes mellitus with hyperglycemia E11.65 ESRD (end stage renal disease) on dialysis N18.6; Z99.2 Depression F32.A
[2022-07-13] MEDS: carvediloL 3.125 MG TAB PO SCH ×2 (09:15→20:14)
[2022-07-13] MEDS ORDERED: SODIUM CHLORIDE 0.9% 1000ML 1,000 ML IV SCH (09:15)
--- NOTE | 2022-07-13 12:20 | Nephrology Consultation ---
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 On MWF HD. Preliminary orders for inpatient treatment tomorrow have been entered into the EHR and reviewed with the computer programmer. Volume status is currently acceptable. Electrolytes normal. Additional IVF is being provided for hypotension. Medications appropriately dosed for kidney function. Monitor CK on daptomycin. Renal diet. Phoslo QAC. Document daily AM weight. (2) Sepsis due to urinary tract infection: Remains on daptomycin. Cultures pending. Symptomatically improving. Afebrile. (3) Hypotension: Additional NSS being provided this. (4) Anemia: Hgb 10.6 on 07/07 at HD. Iron and Epogen to be provided with HD tomorrow. History of Present Illness Reason for Consultation: ESRD on HD, sepsis due to UTI Requesting Physician: Jani Bryant MD Attending Physician: Sandip Holm MD History of Present Illness Librado is a 67 year-old male with ESRD due to DKD. He is maintained on hemodialysis at [facility] under my care. Librado dialyzes on a MWF schedule. He has been tolerating dialysis well. No reported complications with treatment noted. A transposed L BC AVF placed by Dr. Pendleton has been used for treatment. Librado completed a full dialysis treatment on Thursday. He was experiencing some GI upset, including frequent loose bowel movements since . He describes some abdominal discomfort in the right side of his abdomen which progressed to a right flank pain during his dialysis treatment. He also was experiencing low grade fevers without shaking chills. Librado makes a very small amount of urine and reports burning and pain when trying to void on Thursday morning. He was evaluated by ELIU Amin during HD and an Rx for Ciprofloxacin was provided. Librado took one dose of the medication yesterday. He then presented to the ER at [facility] for additional evaluation. On presentation, Librado was found to be hypotensive and afebrile. Laboratory studies demonstrating a leukocytosis and elevated lactate of 2.6. Librado was started on daptomycin and admitted to additional monitoring and evaluation. IVF NSS infusion provided. Carvedilol held this AM due to low BP. Librado was resting comfortably in bed this morning. He is receiving an additional 500 ml of NSS. He reports some weakness but denies any pain, discomfort, or GI symptoms this morning. He has not voided any urine since admission. WBC 23,000 down to 16,000 this AM. Cultures pending. HD Rx is MWF x 240 minutes on a [employer] Revaclear 300 at Qb 450 Qd 500 K bath. EDW 115 kg. Allergies Allergy/AdvReac Type Severity Reaction Status Date / Time atorvastatin [From Lipitor] Allergy Unknown CAN'T Verified 07/12/22 20:24 REMEMBER simvastatin [From Zocor] Allergy Unknown CAN'T Verified 07/12/22 20:24 REMEMBER codeine AdvReac Intermediate Nausea Verified 07/12/22 20:24 Home Medications Medication Instructions Recorded Confirmed Type ergocalciferol (vitamin D2) 1,250 1,250 mcg PO WK 05/19/21 07/12/22 History mcg (50,000 unit) capsule (Vitamin D2) vitamin B complex and vitamin C 1 cap PO DAILY 05/19/21 07/12/22 History no.20-folic acid 1 mg capsule (Renal Caps) blood sugar diagnostic ([employer] #50 ea 10/08/21 02/11/22 Rx Verio test strips) docusate sodium 100 mg capsule 100 mg PO BID 10/08/21 07/12/22 History escitalopram oxalate 10 mg tablet 20 mg PO DAILY 10/08/21 07/12/22 History glucagon 1 mg solution for See Rx Instructions IM .COMPLEX 10/08/21 07/12/22 History injection (Glucagon Emergency Kit) lancets 33 gauge ([employer] #100 ea 10/08/21 02/11/22 Rx Lancets) lancing device with lancets kit #1 ea 10/08/21 02/11/22 Rx ([employer] Lancing Device kit) meclizine 12.5 mg tablet 12.5 mg PO Q6H PRN Dizziness 10/08/21 07/12/22 History omeprazole 20 mg capsule,delayed 20 mg PO DAILY #90 caps 10/28/21 07/12/22 Rx release sertraline 50 mg tablet (Zoloft) 50 mg PO DAILY #90 tabs 10/28/21 07/12/22 Rx calcium acetate(phosphat bind) 667 667 mg PO TID #90 caps 11/22/21 07/12/22 Rx mg capsule insulin glargine 100 unit/mL (3 15 unit (0.15 mL) SC QAM #15 mL 11/22/21 07/12/22 Rx mL) subcutaneous pen (Lantus Solostar U-100 Insulin) rosuvastatin 10 mg tablet (Crestor) 10 mg PO HS #90 tabs 11/22/21 07/12/22 Rx cetirizine 10 mg tablet 10 mg PO DAILY #90 tabs 12/23/21 07/12/22 Rx pen needle, diabetic 31 gauge x #100 ea 02/04/22 02/11/22 Rx 5/16" (BD Ultra-Fine Short Pen Needle) pen needle, diabetic, safety 30 #100 ea 02/11/22 02/11/22 Rx gauge x 3/16" (Assure ID Pen Needle) ciprofloxacin HCl 500 mg tablet 500 mg PO DAILY #7 tabs 07/11/22 07/12/22 Rx carvedilol 6.25 mg tablet 6.25 mg PO DIRECTED 07/12/22 07/12/22 History Patient History Medical History Anemia Carpal tunnel syndrome of right wrist Diabetes mellitus with hyperglycemia Elevated troponin I level ESRD (end stage renal disease) on dialysis GERD (gastroesophageal reflux disease) Gout Gout of knee Hyperbilirubinemia Hypertension Osteoarthritis of knees, bilateral Vertigo Surgical History History of appendectomy History of incision and drainage Family History Mother Cancer Denies family history of Ovarian cancer Prostate cancer Myocardial infarction Breast cancer Colorectal cancer Social History Smoking Status: Never smoker Second Hand Exposure: No; Do You Dip or Chew Tobacco: No; Hx Alcohol Use: No Hx Substance Use: No Preferred Language: Turkish Communication Ability: Effective 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 Beliefs That Will Affect Care: None marital status: single Current Living Situation: Alone current occupational status: employed Other Information That Helps Us Care for You: No Feels Safe at Home: Yes Safety Concerns: Feels Safe At This Time Diet: regular caffeine: Yes Dental Care, Regularly: No Seatbelt Use: always Sunscreen Use: No Assistive Devices: Walker and Wheelchair Review of Systems Review of Systems: All systems reviewed & are unremarkable except as noted in HPI & below Physical Exam Constitutional: well developed; no acute distress Eyes: no scleral abnormality and no corneal abnormality ENMT: Mouth: no oral mucosal abnormality and oral mucous membranes not dry Neck: normal visual inspection and trachea midline Respiratory: normal respiratory effort Auscultation: lungs clear to auscult ation bilaterally Cardiovascular: Rate/Rhythm: regular rate Heart Sounds: normal S1 and normal S2 Vessels: no JVD Extremities: + pedal edema and + AV fistula Gastrointestinal (Abdomen): Inspection/Auscultation: abdomen normal to inspection, + abdomen distended and normal bowel sounds Percussion/Palpation: abdomen soft; abdomen nontender, no guarding and abdomen not rigid Musculoskeletal: Extremities: no cyanosis and no clubbing Skin: no jaundice Neurologic: Motor/Sensory: no tremor and no asterixis Psychiatric: Orientation: alert and oriented x 3 Results & Data Vital Signs (Past 12 Hours) Vital Signs Temp Pulse Pulse Resp BP BP Pulse Ox 07/13/22 08:00 78 07/13/22 09:16 07/13/22 09:05 83/51 L 07/13/22 08:41 37.2 C 80 19 75/46 L 94 07/13/22 06:23 94/67 L 07/13/22 03:05 36.7 C 74 18 85/50 L 97 07/13/22 02:38 80 07/13/22 01:20 07/13/22 00:58 36.7 C 78 18 124/54 L 92 07/13/22 00:30 83 17 07/13/22 00:30 103/59 L 07/13/22 00:20 88 18 O2 Del Method 07/13/22 08:00 07/13/22 09:16 Room Air 07/13/22 09:05 07/13/22 08:41 Room Air 07/13/22 06:23 07/13/22 03:05 Room Air 07/13/22 02:38 07/13/22 01:20 Room Air 07/13/22 00:58 Room Air 07/13/22 00:30 07/13/22 00:30 07/13/22 00:20 Laboratory Results Laboratory Results - last 24 hr 07/12/22 07/12/22 07/12/22 20:05 20:05 20:05 WBC 23.78 H RBC 3.54 L Hgb 11.4 L Hct 34.3 L MCV 96.9 MCH 32.2 MCHC 33.2 RDW Std Deviation 50.4 H RDW Coeff of Inderjit 14.0 Plt Count 141 MPV 10.0 Immature Gran % (Auto) 2.3 Neut % (Auto) 86.5 Lymph % (Auto) 5.8 [place] % (Auto) 5.0 Eos % (Auto) 0.1 Baso % (Auto) 0.3 Neut # (Auto) 20.58 H Lymph # (Auto) 1.38 [place] # (Auto) 1.19 H Eos # (Auto) 0.02 Baso # (Auto) 0.06 Immature Gran # (Auto) 0.55 H PT 12.2 H INR 1.1 APTT 30.7 PTT Ratio 1.1 Sodium 132 L Potassium 4.5 Chloride 85 L Carbon Dioxide 34 H Anion Gap 13 H BUN 36 H Creatinine 8.28 H* Est Cr Clr Drug Dosing 10.9 Est GFR ( Amer) 7.1 Est GFR (Non-Af Amer) 6.1 BUN/Creatinine Ratio 4.3 L Glucose 168 H POC Glucose Estimat Average Glucose Hemoglobin A1c Lactate Calcium 9.1 Magnesium 1.6 L Total Bilirubin 1.4 H Direct Bilirubin 0.4 H AST 13 ALT 8 Alkaline Phosphatase 108 H Troponin I High Sens 21.9 H Total Protein 7.3 Albumin 3.8 Globulin Albumin/Globulin Ratio Procalcitonin Nasal Screen MRSA (PCR) SARS-CoV-2 (PCR) Influenza Type A (PCR) Influenza Type B (PCR) RSV (RT-PCR) 07/12/22 07/12/22 07/12/22 20:05 20:05 21:15 WBC RBC Hgb Hct MCV MCH MCHC RDW Std Deviation RDW Coeff of Inderjit Plt Count MPV Immature Gran % (Auto) Neut % (Auto) Lymph % (Auto) [place] % (Auto) Eos % (Auto) Baso % (Auto) Neut # (Auto) Lymph # (Auto) [place] # (Auto) Eos # (Auto) Baso # (Auto) Immature Gran # (Auto) PT INR APTT PTT Ratio Sodium Potassium Chloride Carbon Dioxide Anion Gap BUN Creatinine Est Cr Clr Drug Dosing Est GFR ( Amer) Est GFR (Non-Af Amer) BUN/Creatinine Ratio Glucose POC Glucose Estimat Average Glucose Hemoglobin A1c Lactate 4.3 H* Calcium Magnesium Total Bilirubin Direct Bilirubin AST ALT Alkaline Phosphatase Troponin I High Sens Total Protein Albumin Globulin Albumin/Globulin Ratio Procalcitonin 7.56 H Nasal Screen MRSA (PCR) SARS-CoV-2 (PCR) NEGATIVE Influenza Type A (PCR) Negative Influenza Type B (PCR) Negative RSV (RT-PCR) Negative 07/12/22 07/13/22 07/13/22 21:59 00:59 07:27 WBC RBC Hgb Hct MCV MCH MCHC RDW Std Deviation RDW Coeff of Inderjit Plt Count MPV Immature Gran % (Auto) Neut % (Auto) Lymph % (Auto) [place] % (Auto) Eos % (Auto) Baso % (Auto) Neut # (Auto) Lymph # (Auto) [place] # (Auto) Eos # (Auto) Baso # (Auto) Immature Gran # (Auto) PT INR APTT PTT Ratio Sodium Potassium Chloride Carbon Dioxide Anion Gap BUN Creatinine Est Cr Clr Drug Dosing Est GFR ( Amer) Est GFR (Non-Af Amer) BUN/Creatinine Ratio Glucose POC Glucose 163 H 166 H Estimat Average Glucose Hemoglobin A1c Lactate 2.6 H* Calcium Magnesium Total Bilirubin Direct Bilirubin AST ALT Alkaline Phosphatase Troponin I High Sens Total Protein Albumin Globulin Albumin/Globulin Ratio Procalcitonin Nasal Screen MRSA (PCR) SARS-CoV-2 (PCR) Influenza Type A (PCR) Influenza Type B (PCR) RSV (RT-PCR) 07/13/22 07/13/22 07/13/22 07:29 07:29 07:29 WBC 16.46 H RBC 3.04 L Hgb 9.7 L Hct 28.4 L MCV 93.4 MCH 31.9 MCHC 34.2 RDW Std Deviation 47.5 H RDW Coeff of Inderjit 14.0 Plt Count 107 L MPV 10.3 Immature Gran % (Auto) 1.8 Neut % (Auto) 83.5 Lymph % (Auto) 7.5 [place] % (Auto) 6.1 Eos % (Auto) 0.9 Baso % (Auto) 0.2 Neut # (Auto) 13.73 H Lymph # (Auto) 1.24 [place] # (Auto) 1.01 H Eos # (Auto) 0.15 Baso # (Auto) 0.04 Immature Gran # (Auto) 0.29 H PT INR APTT PTT Ratio Sodium 133 L Potassium 4.1 Chloride 90 L Carbon Dioxide 34 H Anion Gap 9 BUN 43 H Creatinine 8.93 H* D Est Cr Clr Drug Dosing 10.1 Est GFR ( Amer) 6.5 Est GFR (Non-Af Amer) 5.6 BUN/Creatinine Ratio 4.8 L Glucose 155 H POC Glucose Estimat Average Glucose Pending Hemoglobin A1c Pending Lactate Calcium 8.7 Magnesium 1.6 L Total Bilirubin 0.9 D Direct Bilirubin AST 15 ALT 8 Alkaline Phosphatase 85 Troponin I High Sens 15.9 D Total Protein 6.1 Albumin 3.2 L Globulin 2.9 Albumin/Globulin Ratio 1.1 Procalcitonin Nasal Screen MRSA (PCR) SARS-CoV-2 (PCR) Influenza Type A (PCR) Influenza Type B (PCR) RSV (RT-PCR) 07/13/22 07/13/22 07/13/22 10:45 11:14 Unknown WBC RBC Hgb Hct MCV MCH MCHC RDW Std Deviation RDW Coeff of Inderjit Plt Count MPV Immature Gran % (Auto) Neut % (Auto) Lymph % (Auto) [place] % (Auto) Eos % (Auto) Baso % (Auto) Neut # (Auto) Lymph # (Auto) [place] # (Auto) Eos # (Auto) Baso # (Auto) Immature Gran # (Auto) PT INR APTT PTT Ratio Sodium Potassium Chloride Carbon Dioxide Anion Gap BUN Creatinine Est Cr Clr Drug Dosing Est GFR ( Amer) Est GFR (Non-Af Amer) BUN/Creatinine Ratio Glucose POC Glucose 158 H Estimat Average Glucose Hemoglobin A1c Lactate Calcium Magnesium Total Bilirubin Direct Bilirubin AST ALT Alkaline Phosphatase Troponin I High Sens 16.4 Total Protein Albumin Globulin Albumin/Globulin Ratio Procalcitonin Nasal Screen MRSA (PCR) Positive A SARS-CoV-2 (PCR) Influenza Type A (PCR) Influenza Type B (PCR) RSV (RT-PCR) PG Care Time/CCT Total # of Minutes Spent Total Time Spent with Patient: Total time spent is greater than 50% in coordination of care (as documented) at patient's floor/unit and/or counseling patient: Coding Level of Care Code 93423 IN/OBS CONSULT LVL 4,60M Diagnoses ESRD (end stage renal disease) on dialysis N18.6; Z99.2 Sepsis due to urinary tract infection A41.9; N39.0 Hypotension I95.9 Hypotension type: unspecified hypotension type Anemia D64.9 Anemia type: unspecified type (3) Hypotension Hypotension type: unspecified hypotension type Qualified Code(s): I95.9 - Hypotension, unspecified (4) Anemia Anemia type: unspecified type Qualified Code(s): D64.9 - Anemia, unspecified
--- NOTE | 2022-07-13 12:43 | XRay Report ---
XR chest 1V portable CLINICAL HISTORY: Sepsis TECHNIQUE: Single frontal radiograph of the chest was obtained. Comparison: Comparison is made to chest radiograph 06/25/2022 FINDINGS: No lines and tubes are seen. Cardiomegaly is noted. The lungs are clear. There is suggestion of hiata l hernia. There is blunting of the costophrenic angles bilaterally likely due to scarring. IMPRESSION: No acute abnormalities and in particular no radiographic evidence of pneumonia. ACT 112: Negative or not required by law. Electronically signed by: Luther Pittman M.D. 07/13/2022 12:42 PM
[2022-07-13] MEDS ORDERED: MAGNESIUM SULFATE / D5W 1 GM/100 ML BAG IV ONE (16:42)
[2022-07-13] MEDS: ROSUVASTATIN CALCIUM 10 MG TAB PO SCH (20:09)
--- NOTE | 2022-07-13 21:30 | Electrocardiogram Report ---
Test Reason : Blood Pressure : / mmHG Vent. Rate : 086 BPM Atrial Rate : 086 BPM P-R Int : 148 ms QRS Dur : 092 ms QT Int : 370 ms P-R-T Axes : -17 031 073 degrees QTc Int : 442 ms Normal sinus rhythm Normal ECG When compared with ECG of 25-JUN-2022 15:03, No significant change was found Confirmed by José Miguel Marcial ([id number]) on 07/13/2022 9:29:55 PM Referred By: REFERRED SELF Confirmed By:José Miguel Marcial
[2022-07-14] MEDS ORDERED: EPOETIN ALFA 20,000 UNITS/ML VIAL IV ONE (07:00)
[2022-07-14 07:17] LABS: Appearance Urine Turbid (Clear); Bacteria Urine Automated Negative (Negative); Bilirubin Urine Negative (Negative); Blood Urine 2+ (Negative); Color Urine Yellow; Epithelial Cell Urine Auto >30 /lpf (0-5); Glucose Urine UA Negative (Negative); Ketones Urine Negative (Negative); Leukocyte Esterase Urine 2+ (Negative); Nitrite Urine Negative (Negative); Urobilinogen Urine Negative (Negative); WBC Urine Automated >30 /hpf (0-5); pH Urine >= 9.0 (4.5-7.5)
[2022-07-14 07:19] LABS: Protein Urine 3+ (Negative)
[2022-07-14 07:46] LABS: Basophils # (auto) 0.03 K/uL (0-0.2); Basophils % (auto) 0.3 %; Eosinophils # (auto) 0.22 K/uL (0-0.50); Eosinophils % (auto) 2.1 %; Hematocrit (blood only) 29.7 % (42.0-52.0); Hemoglobin 10.2 g/dl (14.0-18.0); Immature Granulocytes # (auto) 0.11 K/uL (0.01-0.20); Lymphocytes # (auto) 0.77 K/uL (1.2-3.4); Lymphocytes % (auto) 7.2 %; Mean Corpuscular Hemoglobin 31.4 pg (25.0-34.0); Mean Corpuscular Hgb Conc 34.3 g/dL (32.0-36.0); Mean Corpuscular Volume 91.4 fL (80.0-100.0); Mean Platelet Volume 10.4 fL (9.4-12.4); Monocytes # (auto) 0.66 K/uL (0.11-0.59); Monocytes % (auto) 6.2 %; Neutrophils # (auto) 8.89 K/uL (1.40-6.50); Neutrophils % (auto) 83.2 %; Platelet Count 125 K/uL (130-400); RDW Coefficient of Variation 13.3 % (11.5-14.5); RDW Standard Deviation 44.7 fL (36.4-46.3); Red Blood Count 3.25 M/uL (4.70-6.10); White Blood Count 10.68 K/ul (4.8-10.8)
[2022-07-14 08:09] LABS: Albumin Level 3.3 gm/dl (3.4-5.0); BUN Creatinine Ratio 5.4 (10-20); Bilirubin,Total 0.6 mg/dl (0.2-1.0); Creatinine Clr Calc Pharmacy 8.5 ml/min; Est GFR (African American) 5.3 ml/min; Est GFR (Non-African American) 4.5 ml/min; Globulin 3.3 gm/dl (2.5-4.0); Magnesium 1.9 mg/dl (1.7-2.4); Potassium 4.2 mmol/L (3.5-5.1); Total Protein 6.6 gm/dl (6.0-8.3)
[2022-07-14 08:18] LABS: Estimated Average Glucose 123 mg/dl; Hemoglobin A1C 5.9 % (4.5-5.6)
[2022-07-14] MEDS: SERTRALINE HCL 50 MG TABLET PO SCH (08:18)
[2022-07-14] MEDS: CALCIUM ACETATE 667 MG CAP/TAB PO SCH ×3 (08:18→17:25)
[2022-07-14] MEDS: CETIRIZINE HCL 10 MG TABLET PO SCH (08:19)
[2022-07-14] MEDS: NEPHROCAPS PO SCH (08:19)
[2022-07-14] MEDS: PANTOprazole 40 MG TAB PO SCH (08:20)
[2022-07-14] MEDS: DOCUSATE SODIUM 100 MG CAP PO SCH ×2 (08:20→20:55)
[2022-07-14] MEDS: carvediloL 3.125 MG TAB PO SCH ×2 (08:21→20:57)
[2022-07-14] MEDS: INSULIN ASPART PER UNIT CHARGE SC SCH ×4 (08:22→20:55)
[2022-07-14] MEDS: LANTUS PER UNIT CHARGE SC SCH (08:23)
[2022-07-14] MEDS ORDERED: CEFEPIME 2,000 MG in SYRINGE 0 ML IV SCH (09:00)
[2022-07-14] MEDS: ESCITALOPRAM OXALATE 20 MG TAB PO SCH (09:08)
--- NOTE | 2022-07-14 10:45 | Nephrology Progress Note ---
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 On MWF HD. Orders for HD entered into the EHR and reviewed with RN. Librado was seen and evaluated during hemodialysis. Qb slightly below goal due to high access pressure. Otherwise, treatment running well. Qb acceptable. 3 K bath. UF goal 1 L. Volume status is currently acceptable. Medications appropriately dosed for kidney function. Monitor CK on daptomycin. [facility]. Document daily AM weight. (2) Sepsis due to urinary tract infection: Plan: Remains on daptomycin. Cultures pending. Symptomatically improving. Afebrile. (3) Anemia: Plan: Hgb 10.6 on 07/07 at HD. Iron and Epogen 62508 units with HD today. Admission and Anticipated Discharge Date Admission Date: July 12, 2022 Subjective No acute events overnight. Librado was seen and evaluated during hemodialysis this AM. He is tolerating treatment well. Overall, he feels well. No fevers or chills. Denies flank or abdominal pain at this time. Review of Systems Review of Systems: All systems reviewed & are unremarkable except as noted in HPI & below Physical Exam Constitutional: well developed; no acute distress Eyes: no scleral abnormality and no corneal abnormality ENMT: Mouth: no oral mucosal abnormality and oral mucous membranes not dry Neck: normal visual inspection and trachea midline Respiratory: normal respiratory effort Auscultation: lungs clear to auscultation bilaterally Cardiovascular: Rate/Rhythm: regular rate Heart Sounds: normal S1 and normal S2 Vessels: no JVD Extremities: + pedal edema and + AV fistula Gastrointestinal (Abdomen): Inspection/Auscultation: abdomen normal to inspection, + abdomen distended and normal bowel sounds Percussion/Palpation: abdomen soft; abdomen nontender, no guarding and abdomen not rigid Musculoskeletal: Extremities: no cyanosis and no clubbing Skin: no jaundice Neurologic: Motor/Sensory: no tremor and no asterixis Psychiatric: Orientation: alert and oriented x 3 Results & Data Vital Signs (Past 12 Hours) Vital Signs Temp Pulse Pulse Resp BP Pulse Ox O2 Del Method 07/14/22 08:04 36.9 C 80 19 91/61 L 96 Room Air 07/14/22 02:06 37.0 C 79 18 122/70 92 Room Air 07/13/22 23:09 78 07/13/22 22:56 37.0 C 76 18 132/72 96 Room Air Laboratory Results Laboratory Results - last 24 hr 07/13/22 07/13/22 07/13/22 07:29 10:45 11:14 WBC RBC Hgb Hct MCV MCH MCHC RDW Std Deviation RDW Coeff of Inderjit Plt Count MPV Immature Gran % (Auto) Neut % (Auto) Lymph % (Auto) [place] % (Auto) Eos % (Auto) Baso % (Auto) Neut # (Auto) Lymph # (Auto) [place] # (Auto) Eos # (Auto) Baso # (Auto) Immature Gran # (Auto) Sodium Potassium Chloride Carbon Dioxide Anion Gap BUN Creatinine Est Cr Clr Drug Dosing Est GFR ( Amer) Est GFR (Non-Af Amer) BUN/Creatinine Ratio Glucose POC Glucose 158 H Estimat Average Glucose 123 Hemoglobin A1c 5.9 H Calcium Magnesium Total Bilirubin AST ALT Alkaline Phosphatase Troponin I High Sens 16.4 Total Protein Albumin Globulin Albumin/Globulin Ratio Urine Color Urine Appearance Urine pH Ur Specific [place] Urine Protein Urine Glucose (UA) Urine Ketones Urine Blood Urine Nitrite Urine Bilirubin Urine Urobilinogen Ur Leukocyte Esterase Urine WBC (Auto) Urine RBC (Auto) U Hyaline Cast (Auto) U Epithel Cells (Auto) Urine Bacteria (Auto) Urine Yeast Hep Bs Antigen Hep Bs Ag Confirmation Hep Bs Antibody, Quant 07/13/22 07/13/22 07/13/22 16:14 16:23 19:32 WBC RBC Hgb Hct MCV MCH MCHC RDW Std Deviation RDW Coeff of Inderjit Plt Count MPV Immature Gran % (Auto) Neut % (Auto) Lymph % (Auto) [place] % (Auto) Eos % (Auto) Baso % (Auto) Neut # (Auto) Lymph # (Auto) [place] # (Auto) Eos # (Auto) Baso # (Auto) Immature Gran # (Auto) Sodium Potassium Chloride Carbon Dioxide Anion Gap BUN Creatinine Est Cr Clr Drug Dosing Est GFR ( Amer) Est GFR (Non-Af Amer) BUN/Creatinine Ratio Glucose POC Glucose 148 H 169 H Estimat Average Glucose Hemoglobin A1c Calcium Magnesium Total Bilirubin AST ALT Alkaline Phosphatase Troponin I High Sens 18.2 Total Protein Albumin Globulin Albumin/Globulin Ratio Urine Color Urine Appearance Urine pH Ur Specific [place] Urine Protein Urine Glucose (UA) Urine Ketones Urine Blood Urine Nitrite Urine Bilirubin Urine Urobilinogen Ur Leukocyte Esterase Urine WBC (Auto) Urine RBC (Auto) U Hyaline Cast (Auto) U Epithel Cells (Auto) Urine Bacteria (Auto) Urine Yeast Hep Bs Antigen Hep Bs Ag Confirmation Hep Bs Antibody, Quant 07/14/22 07/14/22 07/14/22 06:50 06:55 06:55 WBC 10.68 RBC 3.25 L Hgb 10.2 L Hct 29.7 L MCV 91.4 MCH 31.4 MCHC 34.3 RDW Std Deviation 44.7 RDW Coeff of Inderjit 13.3 Plt Count 125 L MPV 10.4 Immature Gran % (Auto) 1.0 Neut % (Auto) 83.2 Lymph % (Auto) 7.2 [place] % (Auto) 6.2 Eos % (Auto) 2.1 Baso % (Auto) 0.3 Neut # (Auto) 8.89 H Lymph # (Auto) 0.77 L [place] # (Auto) 0.66 H Eos # (Auto) 0.22 Baso # (Auto) 0.03 Immature Gran # (Auto) 0.11 Sodium 133 L Potassium 4.2 Chloride 90 L Carbon Dioxide 30 Anion Gap 13 H BUN 57 H Creatinine 10.59 H* D Est Cr Clr Drug Dosing 8.5 Est GFR ( Amer) 5.3 Est GFR (Non-Af Amer) 4.5 BUN/Creatinine Ratio 5.4 L Glucose 116 H POC Glucose Estimat Average Glucose Hemoglobin A1c Calcium 9.0 Magnesium 1.9 Total Bilirubin 0.6 AST 19 ALT 11 Alkaline Phosphatase 105 H Troponin I High Sens Total Protein 6.6 Albumin 3.3 L Globulin 3.3 Albumin/Globulin Ratio 1.0 Urine Color Yellow Urine Appearance Turbid A Urine pH >= 9.0 H Ur Specific [place] 1.010 Urine Protein 3+ H Urine Glucose (UA) Negative Urine Ketones Negative Urine Blood 2+ H Urine Nitrite Negative Urine Bilirubin Negative Urine Urobilinogen Negative Ur Leukocyte Esterase 2+ H Urine WBC (Auto) >30 H Urine RBC (Auto) 5-10 H U Hyaline Cast (Auto) 1-5 U Epithel Cells (Auto) >30 H Urine Bacteria (Auto) Negative Urine Yeast Not Reportable Hep Bs Antigen Hep Bs Ag Confirmation Hep Bs Antibody, Quant 07/14/22 07/14/22 07:00 07:26 WBC RBC Hgb Hct MCV MCH MCHC RDW Std Deviation RDW Coeff of Inderjit Plt Count MPV Immature Gran % (Auto) Neut % (Auto) Lymph % (Auto) [place] % (Auto) Eos % (Auto) Baso % (Auto) Neut # (Auto) Lymph # (Auto) [place] # (Auto) Eos # (Auto) Baso # (Auto) Immature Gran # (Auto) Sodium Potassium Chloride Carbon Dioxide Anion Gap BUN Creatinine Est Cr Clr Drug Dosing Est GFR ( Amer) Est GFR (Non-Af Amer) BUN/Creatinine Ratio Glucose POC Glucose 127 H Estimat Average Glucose Hemoglobin A1c Calcium Magnesium Total Bilirubin AST ALT Alkaline Phosphatase Troponin I High Sens Total Protein Albumin Globulin Albumin/Globulin Ratio Urine Color Urine Appearance Urine pH Ur Specific [place] Urine Protein Urine Glucose (UA) Urine Ketones Urine Blood Urine Nitrite Urine Bilirubin Urine Urobilinogen Ur Leukocyte Esterase Urine WBC (Auto) Urine RBC (Auto) U Hyaline Cast (Auto) U Epithel Cells (Auto) Urine Bacteria (Auto) Urine Yeast Hep Bs Antigen Pending Hep Bs Ag Confirmation Pending Hep Bs Antibody, Quant Pending PG Care Time/CCT Total # of Minutes Spent Total Time Spent with Patient: Total time spent is greater than 50% in coordination of care (as documented) at patient's floor/unit and/or counseling patient: Coding Level of Care Code 04329 SUB INP/OBS CARE 3/50MIN Diagnoses ESRD (end stage renal disease) on dialysis N18.6; Z99.2 Sepsis due to urinary tract infection A41.9; N39.0 Anemia D64.9 Anemia type: unspecified type (3) Anemia Anemia type: unspecified type Qualified Code(s): D64.9 - Anemia, unspecified
--- NOTE | 2022-07-14 14:33 | Hospitalist Progress Note ---
Date of Service July 14, 2022 Assessment & Plan (1) Sepsis due to urinary tract infection: Plan: Sepsis due to UTI/hypotension-initial presentation with dysuria previous urine infections associate with sepsis treat this as sepsis source at this time continuing daptomycin and cefepime therapy if negative for organisms we will de- escalate antibiotics pt was hypotensive on presentation,, blood pressures have improved reinstituting carvedilol therapy Since MRSA screen is positive we will likely de-escalate antibiotics to medication covering MRSA consider doxycycline Continue B complex, calcium acetate, ergocalciferol Consult nephrology Dr. Marte to manage renal replacement therapy (2) Diabetes mellitus with hyperglycemia: Plan: Diabetes mellitus- Reduce glargine from 15 to 6 units subcu every morning Placed on Accu-Cheks with NovoLog SSI (3) ESRD (end stage renal disease) on dialysis: Plan: continues on renal replacement therapy (4) Depression: Plan: Anxiety with depression- Continue sertraline, escitalopram Admission and Anticipated Discharge Date Admission Date: July 12, 2022 Subjective Patient was seen in the dialysis unit. He has no complaints or problems and says he feels better than when he presented. He was able to produce urine last night and a urine sample was eventually sent Physical Exam Physical Exam: Physical exam this patient is awake alert appropriate Card exam is regular with a systolic murmur Lungs are clear Abdomen is protuberant but nontender normal active bowel sounds Extremities with trace edema Results & Data Results & Data Vital Signs (Past 12 Hours) Vital Signs Temp Pulse Pulse Pulse Resp BP BP 07/14/22 14:24 98.4 F 81 18 157/84 H 07/14/22 12:30 90 134/61 07/14/22 12:00 84 154/92 H 07/14/22 11:30 74 159/85 H 07/14/22 11:00 70 138/92 07/14/22 10:30 72 117/73 07/14/22 10:00 71 106/63 07/14/22 09:44 98.4 F 72 07/14/22 08:30 75 07/14/22 08:04 98.4 F 80 19 91/61 L Pulse Ox O2 Del Method 07/14/22 14:24 97 Room Air 07/14/22 12:30 07/14/22 12:00 07/14/22 11:30 07/14/22 11:00 07/14/22 10:30 07/14/22 10:00 07/14/22 09:44 07/14/22 08:30 07/14/22 08:04 96 Room Air Laboratory Results Reviewed CBC Reviewed PRP Reviewed [id number] glucose trending PG Care Time/CCT Total # of Minutes Spent Total Time Spent with Patient: Total time spent is greater than 50% in coordination of care (as documented) at patient's floor/unit and/or counseling patient: Coding Level of Care Code 38020 SUB INP/OBS CARE 2/35MIN Diagnoses Sepsis due to urinary tract infection A41.9; N39.0 Diabetes mellitus with hyperglycemia E11.65 ESRD (end stage renal disease) on dialysis N18.6; Z99.2 Depression F32.A
[2022-07-14] MEDS: CEFEPIME 1,000 MG in SYRINGE 0 ML IV SCH (15:14)
[2022-07-14] MEDS ORDERED: DAPTOmycin 500 MG in SYRINGE 0 ML IV SCH (18:00)
[2022-07-14] MEDS: ROSUVASTATIN CALCIUM 10 MG TAB PO SCH (21:25)
[2022-07-15 06:46] LABS: Basophils # (auto) 0.03 K/uL (0-0.2); Basophils % (auto) 0.5 %; Eosinophils # (auto) 0.17 K/uL (0-0.50); Eosinophils % (auto) 2.8 %; Hematocrit (blood only) 28.8 % (42.0-52.0); Hemoglobin 9.7 g/dl (14.0-18.0); Immature Granulocytes # (auto) 0.05 K/uL (0.01-0.20); Immature Granulocytes % (auto) 0.8 %; Lymphocytes # (auto) 0.73 K/uL (1.2-3.4); Lymphocytes % (auto) 11.9 %; Mean Corpuscular Hgb Conc 33.7 g/dL (32.0-36.0); Mean Platelet Volume 10.1 fL (9.4-12.4); Monocytes # (auto) 0.83 K/uL (0.11-0.59); Monocytes % (auto) 13.5 %; Neutrophils # (auto) 4.32 K/uL (1.40-6.50); Neutrophils % (auto) 70.5 %; Platelet Count 133 K/uL (130-400); RDW Coefficient of Variation 13.8 % (11.5-14.5); Red Blood Count 3.03 M/uL (4.70-6.10); White Blood Count 6.13 K/ul (4.8-10.8)
[2022-07-15 07:28] LABS: Albumin Globulin Ratio 1.1 (0.9-2); Albumin Level 3.3 gm/dl (3.4-5.0); BUN Creatinine Ratio 4.7 (10-20); Bilirubin,Total 0.5 mg/dl (0.2-1.0); Calcium 8.9 mg/dl (8.6-10.3); Creatinine Clr Calc Pharmacy 12.7 ml/min; Est GFR (African American) 8.6 ml/min; Est GFR (Non-African American) 7.4 ml/min; Globulin 3.1 gm/dl (2.5-4.0); Magnesium 1.9 mg/dl (1.7-2.4); Potassium 4.2 mmol/L (3.5-5.1); Total Protein 6.4 gm/dl (6.0-8.3)
[2022-07-15] MEDS: SERTRALINE HCL 50 MG TABLET PO SCH (08:43)
[2022-07-15] MEDS: PANTOprazole 40 MG TAB PO SCH (08:43)
[2022-07-15] MEDS: NEPHROCAPS PO SCH (08:43)
[2022-07-15] MEDS: carvediloL 3.125 MG TAB PO SCH (08:43)
[2022-07-15] MEDS: CETIRIZINE HCL 10 MG TABLET PO SCH (08:43)
[2022-07-15] MEDS: CALCIUM ACETATE 667 MG CAP/TAB PO SCH ×2 (08:44→12:34)
[2022-07-15] MEDS: DOCUSATE SODIUM 100 MG CAP PO SCH (08:46)
[2022-07-15] MEDS: INSULIN ASPART PER UNIT CHARGE SC SCH ×2 (08:51→12:38)
[2022-07-15] MEDS: LANTUS PER UNIT CHARGE SC SCH (08:51)
[2022-07-15 12:02] LABS: HBSAG NON-REACTIVE (NON-REACTIVE); Hepatitis B Surface Ab, Quant 14 mIU/mL (> OR = 10)
--- NOTE | 2022-07-15 12:23 | Nephrology Progress Note ---
Date of Service July 15, 2022 Assessment & Plan (1) ESRD (end stage renal disease) on dialysis: Plan: CKD due to DKD. On MWF HD. Resume outpatient Rx at [facility] tomorrow, as scheduled. Volume status is currently acceptable. Medications appropriately dosed for kidney function. Monitor CK on daptomycin. Renal diet. [facility]. Document daily AM weight. (2) Sepsis due to urinary tract infection: Plan: Cultures negative. Clinically improving with treatment. Abx per hospitalist. (3) Anemia: Plan: Hgb 10.6 on 07/07 at HD. Iron and Epogen 98600 units with HD yesterday. Admission and Anticipated Discharge Date Admission Date: July 12, 2022 Subjective No acute events overnight. No complaints this AM. Tolerated HD well yesterday. No complications with treatment. Review of Systems Review of Systems: All systems reviewed & are unremarkable except as noted in HPI & below Physical Exam Constitutional: well developed; no acute distress Eyes: no scleral abnormality and no corneal abnormality ENMT: Mouth: no oral mucosal abnormality and oral mucous membranes not dry Neck: normal visual inspection and trachea midline Respiratory: normal respiratory effort Auscultation: lungs clear to auscultation bilaterally Cardiovascular: Rate/Rhythm: regular rate Heart Sounds: normal S1 and normal S2 Vessels: no JVD Extremities: + pedal edema and + AV fistula Gastrointestinal (Abdomen): Inspection/Auscultation: abdomen normal to inspection, + abdomen distended and normal bowel sounds Percussion/Palpation: abdomen soft; abdomen nontender, no guarding and abdomen not rigid Musculoskeletal: Extremities: no cyanosis and no clubbing Skin: no jaundice Neurologic: Motor/Sensory: no tremor and no asterixis Psychiatric: Orientation: alert and oriented x 3 Results & Data Vital Signs (Past 12 Hours) Vital Signs Temp Pulse Pulse Pulse Resp BP Pulse Ox 07/15/22 11:28 107/59 L 07/15/22 11:28 92/58 L 07/15/22 11:14 36.9 C 77 18 78/48 L 97 07/15/22 09:45 36.7 C 78 80 19 146/75 H 94 07/15/22 08:00 74 07/15/22 07:20 36.7 C 78 19 146/75 H 94 07/15/22 03:00 36.9 C 72 19 114/72 95 O2 Del Method 07/15/22 11:28 07/15/22 11:28 07/15/22 11:14 Room Air 07/15/22 09:45 07/15/22 08:00 07/15/22 07:20 Room Air 07/15/22 03:00 Room Air Laboratory Results Laboratory Results - last 24 hr 07/14/22 07/14/22 07/14/22 07:00 14:40 16:20 WBC RBC Hgb Hct MCV MCH MCHC RDW Std Deviation RDW Coeff of Inderjit Plt Count MPV Immature Gran % (Auto) Neut % (Auto) Lymph % (Auto) Greene % (Auto) Eos % (Auto) Baso % (Auto) Neut # (Auto) Lymph # (Auto) Greene # (Auto) Eos # (Auto) Baso # (Auto) Immature Gran # (Auto) Sodium Potassium Chloride Carbon Dioxide Anion Gap BUN Creatinine Est Cr Clr Drug Dosing Est GFR ( Amer) Est GFR (Non-Af Amer) BUN/Creatinine Ratio Glucose POC Glucose 113 H 186 H Calcium Magnesium Total Bilirubin AST ALT Alkaline Phosphatase Total Protein Albumin Globulin Albumin/Globulin Ratio Hep Bs Antigen NON-REACTIVE Hep Bs Ag Confirmation TNP Hep Bs Antibody, Quant 14 07/14/22 07/15/22 07/15/22 20:10 05:33 05:33 WBC 6.13 RBC 3.03 L Hgb 9.7 L Hct 28.8 L MCV 95.0 MCH 32.0 MCHC 33.7 RDW Std Deviation 48.0 H RDW Coeff of Inderjit 13.8 Plt Count 133 MPV 10.1 Immature Gran % (Auto) 0.8 Neut % (Auto) 70.5 Lymph % (Auto) 11.9 Greene % (Auto) 13.5 Eos % (Auto) 2.8 Baso % (Auto) 0.5 Neut # (Auto) 4.32 Lymph # (Auto) 0.73 L Greene # (Auto) 0.83 H Eos # (Auto) 0.17 Baso # (Auto) 0.03 Immature Gran # (Auto) 0.05 Sodium 136 Potassium 4.2 Chloride 98 Carbon Dioxide 28 Anion Gap 10 BUN 33 H D Creatinine 7.08 H* D Est Cr Clr Drug Dosing 12.7 Est GFR ( Amer) 8.6 Est GFR (Non-Af Amer) 7.4 BUN/Creatinine Ratio 4.7 L Glucose 126 H POC Glucose 111 H Calcium 8.9 Magnesium 1.9 Total Bilirubin 0.5 AST 23 ALT 17 Alkaline Phosphatase 146 H Total Protein 6.4 Albumin 3.3 L Globulin 3.1 Albumin/Globulin Ratio 1.1 Hep Bs Antigen Hep Bs Ag Confirmation Hep Bs Antibody, Quant 07/15/22 07/15/22 07:19 11:11 WBC RBC Hgb Hct MCV MCH MCHC RDW Std Deviation RDW Coeff of Inderjit Plt Count MPV Immature Gran % (Auto) Neut % (Auto) Lymph % (Auto) Greene % (Auto) Eos % (Auto) Baso % (Auto) Neut # (Auto) Lymph # (Auto) Greene # (Auto) Eos # (Auto) Baso # (Auto) Immature Gran # (Auto) Sodium Potassium Chloride Carbon Dioxide Anion Gap BUN Creatinine Est Cr Clr Drug Dosing Est GFR ( Amer) Est GFR (Non-Af Amer) BUN/Creatinine Ratio Glucose POC Glucose 117 H 169 H Calcium Magnesium Total Bilirubin AST ALT Alkaline Phosphatase Total Protein Albumin Globulin Albumin/Globulin Ratio Hep Bs Antigen Hep Bs Ag Confirmation Hep Bs Antibody, Quant PG Care Time/CCT Total # of Minutes Spent Total Time Spent with Patient: Total time spent is greater than 50% in coordination of care (as documented) at patient's floor/unit and/or counseling patient: Coding Level of Care Code 97311 SUB INP/OBS CARE 3/50MIN Diagnoses ESRD (end stage renal disease) on dialysis N18.6; Z99.2 Sepsis due to urinary tract infection A41.9; N39.0 Anemia D64.9 Anemia type: unspecified type (3) Anemia Anemia type: unspecified type Qualified Code(s): D64.9 - Anemia, unspecified
[2022-07-15] MEDS: CEFEPIME 1,000 MG in SYRINGE 0 ML IV SCH (14:52)
--- NOTE | 2022-07-15 16:58 | Discharge Summary ---
Date of Service July 15, 2022 Admission HPI Per Admitting Provider The patient is a 67-year-old male with past medical history including ESRD on HD, gout, anemia, hypertension, GERD, hypoalbuminemia, diabetes mellitus, hypertension, constipation, and anxiety with depression. He presents to the emergency department with symptoms as noted above. Significant abnormal laboratories: WBC 23.78, hemoglobin 11.4, hematocrit 34.3, creatinine 8.28, glucose 168, lactate 4.3, magnesium 1.6, total bili 1.4 and direct bilirubin 0.4, troponin 21.9 and Pro-[facility] 7.36 CT scan of abdomen and pelvis without contrast showed wall thickening of the urinary bladder with pericystic inflammation, highly concerning for UTI Principal Diagnosis sepsis suspected to be from urinary source Discharge Exam pt is alert and oriented, he has returned to normal status, low blood pressures are typical and asymptomatic Discharge Data Allergies Allergy/AdvReac Type Severity Reaction Status Date / Time atorvastatin [From Lipitor] Allergy Unknown CAN'T Verified 07/12/22 20:24 REMEMBER simvastatin [From Zocor] Allergy Unknown CAN'T Verified 07/12/22 20:24 REMEMBER codeine AdvReac Intermediate Nausea Verified 07/12/22 20:24 Consultations 07/12/22 21:37 ED Decision to Admit Stat 07/13/22 00:58 Consult Nephrology Routine Ordered Studies 07/12/22 20:00 CT head/brain wo con Stat 07/12/22 20:19 CT abd pelvis wo con Stat Hospital Course (1) Sepsis due to urinary tract infection: Patient initially presented with hypotension and concerns for sepsis from urinary source however blood cultures and urine cultures did not show any significant confirmation of infection. He was initially placed on daptomycin and cefepime. MRSA screen was positive. However without pulmonary blood IV access skin joint or urine changes patient will be discharged on Augmentin as he was significantly ill when he presented. (2) Diabetes mellitus with hyperglycemia: Patient will be discharged on his diabetic regiment to avoid hypoglycemia by frequent glucose checks (3) ESRD (end stage renal disease) on dialysis: Continuing dialysis sessions (4) Depression: Continues with Zoloft and Lexapro Total Time Total Time Spent Total Time Spent (In Minutes): It required greater than 30 minutes to prepare this patient for discharge Discharge Plan Discharge Items Patient Disposition: Home - Self-Care Reason For Visit: SEPSIS DUE TO UTI, HYPOTENSION Discharge Diagnosis: sepsis suspect UTI, end stage renal disease on dialysis Condition on Discharge: Serious Activity: Per Instructions section Non-emergency contact: Primary Care Provider Call non-emergency contact if: your symptoms worsen Follow-up/Referrals: Jagdeep Turk MD [Primary Care Provider] - 07/23/22 11:00 am Diet: Regular Addtl Attending Provider Instructions: although you presented as you had a infection we did not find direct evidence of confirmed infection we will complete a total of 5 days of antibiotics to cover you at home, this will be by mouth please have the dialysis center keep tabs on you for recurrent symptoms Pending Studies at Discharge: Yes (urine culture ) Stand-Alone Forms: [employer], Smoking Cessation Medications and DC Order Prescriptions: New amoxicillin-pot clavulanate 875-125 mg tablet 1 tab PO BID Qty: 5 0RF Continued sertraline [Zoloft] 50 mg tablet 50 mg PO DAILY Qty: 90 3RF omeprazole 20 mg capsule,delayed release(DR/EC) 20 mg PO DAILY Qty: 90 3RF rosuvastatin [Crestor] 10 mg tablet 10 mg PO HS Qty: 90 3RF calcium acetate(phosphat bind) 667 mg capsule 667 mg PO TID Qty: 90 0RF Rx Instructions: with meals insulin glargine [Lantus Solostar U-100 Insulin] 100 unit/mL (3 mL) insulin pen 15 unit SC QAM Qty: 15 5RF cetirizine 10 mg tablet 10 mg PO DAILY Qty: 90 3RF (DME) pen needle, diabetic [BD Ultra-Fine Short Pen Needle] 31 gauge x 5/16" needle See Rx Instructions .Route Qty: 100 3RF Rx Instructions: As directed (DME) Assure ID Pen Needle 30 gauge x 3/16" needle See Rx Instructions .Route Qty: 100 4RF Rx Instructions: as directed - daily once docusate sodium 100 mg capsule 100 mg PO BID escitalopram oxalate 10 mg tablet 20 mg PO DAILY Glucagon Emergency Kit (human) 1 mg recon soln See Rx Instructions IM .COMPLEX Rx Instructions: intramuscularly PRN NEEDED FOR HYPOGLYCEMIA BLOOD GLUCOSE <60 AND SYMPTOMATIC/UNRESPONSIVE. MAY REPEAT IN 15 MINUTES IF NEEDED.; meclizine 12.5 mg tablet 12.5 mg PO Q6H PRN (Reason: Dizziness) (DME) OneTouch Verio test strips Strip See Rx Instructions .Route Qty: 50 11RF Rx Instructions: Test once daily & as needed (DME) lancing device with lancets [OneTouch Delica Lanc Device] Kit See Rx Instructions .Route Qty: 1 0RF Rx Instructions: Test once daily & as needed (DME) lancets [OneTouch Delica Lancets] 33 gauge misc See Rx Instructions .Route Qty: 100 6RF Rx Instructions: Test once daily and as directed ergocalciferol (vitamin D2) [Vitamin D2] 1,250 mcg (50,000 unit) capsule 1,250 mcg PO WK Rx Instructions: Renal Caps 1 mg Capsule 1 cap PO DAILY carvedilol 6.25 mg tablet 6.25 mg PO DIRECTED Rx Instructions: give 1 tablet 2 times a day every thu,,sat,sun hold for <SBP 100 or HR<60 Discontinued ciprofloxacin HCl 500 mg tablet 500 mg PO DAILY Qty: 7 0RF Rx Instructions: Take after dialysis. STARTED 07/12/22 FOR 7 DAYS Discharge Orders: Discharge Order (Routine); Ordered 07/15/22 Ordered By: Sandip Holm Admission Data Admit Date/Time: 07/12/22 22:35 Attending Provider: Sandip Holm Admit Provider: Jani Bryant Primary Care Provider: Jagdeep Turk Other Providers: Jani Bryant ; Keith Marte Other Interventions: Discharge Summary Assessment (RN) Last Done: 07/15/22 09:45 Coding Level of Care Code 77283 INP/OBS DISCH >30 MIN Diagnoses Sepsis due to urinary tract infection A41.9; N39.0 Diabetes mellitus with hyperglycemia E11.65 ESRD (end stage renal disease) on dialysis N18.6; Z99.2 Depression F32.A
[2022-07-17] MEDS ORDERED: ERGOCALCIFEROL 50,000 UNITS 1250 MCG CAP PO SCH (09:00)
== END 2022-07-15 14:53 | disposition home or self-care (01) | DRG 871 ==
LOC: ED 19:39 → 2S 22:35 → SUATTDRO 22:35 → 2S 07-13 01:43

== ENCOUNTER 2024-04-17 01:47 | Inpatient (IN) ==
[2024-04-17] MEDS: ACETAMINOPHEN 500 MG TAB PO STA (02:14)
[2024-04-17] MEDS: SODIUM CHLORIDE 0.9% 1,000 ML IV ONE ×2 (02:15→03:38)
[2024-04-17 02:24] LABS: Basophils # (auto) 0.02 K/uL (0.00-0.20); Basophils % (auto) 0.4 %; Eosinophils # (auto) 0.11 K/uL (0.00-0.50); Eosinophils % (auto) 2.1 %; Hematocrit (blood only) 31.3 % (42.0-52.0); Hemoglobin 10.6 g/dl (14.0-18.0); Immature Granulocytes # (auto) 0.02 K/uL (0.01-0.20); Immature Granulocytes % (auto) 0.4 %; Lymphocytes # (auto) 0.47 K/uL (1.20-3.40); Lymphocytes % (auto) 8.9 %; Mean Corpuscular Hemoglobin 30.3 pg (25.0-34.0); Mean Corpuscular Hgb Conc 33.9 g/dL (32.0-36.0); Mean Corpuscular Volume 89.4 fL (80.0-100.0); Mean Platelet Volume 9.8 fL (9.4-12.4); Monocytes # (auto) 0.49 K/uL (0.11-0.59); Monocytes % (auto) 9.3 %; Neutrophils # (auto) 4.16 K/uL (1.40-6.50); Neutrophils % (auto) 78.9 %; Platelet Count 140 K/uL (130-400); RDW Coefficient of Variation 13.7 % (11.5-14.5); RDW Standard Deviation 44.8 fL (36.4-46.3); White Blood Count 5.27 K/ul (4.8-10.8)
--- NOTE | 2024-04-17 02:24 | Emergency Department Note ---
Impression & Plan Septic shock, Influenza A, Right lower lobe pneumonia admit to the [facility] ED Provider Note NAME: JYOTI HARRISON AGE: 68 SEX: Male INFORMANT: Patient ED PROVIDER(S): Swati Farrell DO CHIEF COMPLAINT: cough and fever PLAN: Disposition: admit to the [facility] MEDICAL DECISION MAKING: this is a 68-year-old male patient with end-stage renal disease on dialysis who presents to the emergency department with a 3-day history of cough and fever. A septic protocol was performed. Patient was febrile. Upper respiratory bio fire testing was positive for influenza A. Laboratory studies revealed no leukocytosis. Procalcitonin was elevated at 1.44. Lactate was 1.7. Creatinine was 7.13 which is baseline for this end-stage renal disease patient on dialysis. Glucose was 181. H&H were at baseline. Patient was hypotensive initially consistent with septic shock but blood pressure responded nicely to IV crystalloids. patient was started on IV cefepime prophylactically. Chest x-ray was concerning for right lower lobe pneumonia. 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 Vital Signs: reviewed and remarkable for tachycardia and fever Chronic Medical/Social Conditions affecting care: end-stage renal disease on dialysis Prior/ Outside/ External records reviewed: previous inpatient hospitalizations were reviewed. Differential Diagnosis: sepsis, pneumonia, upper respiratory virus Diagnostics, independently interpreted by me: ECG: normal sinus rhythm at a rate of [address] segment elevation or signs of ischemia. There is no ectopy. Cardiac Monitoring: Normal sinus rhythm at a rate of 86 Imaging studies: portable chest x-ray: HPI: 68 year old Male arrives for evaluation of Fever and cough. patient describes having a pneumonia 2 weeks ago for which she took a 7-day course of antibiotics. He does receive dialysis 3 days a week and last had dialysis 24 hours ago. Patient developed a cough that is nonproductive approximately 3 days ago. He is now short of breath with a fever.. PAST MEDICAL HISTORY: See Below, PAST SURGICAL HISTORY: See Below, SOCIAL HISTORY: See Below, HOME MEDICATIONS: See list ALLERGIES: see list VITALS: See Below PHYSICAL EXAMINATION: HEENT: Head - normocephalic and atraumatic. Pupils are equal, round, and reactive to light. Extraocular eye muscles are intact, and sclera are anicteric. Nose - moist nasal mucosa without discharge. Mouth - moist buccal mucosa. Oropharynx is nonerythematous and there is no tonsillar exudate or edema noted. Neck: Supple; no JVD, nuchal rigidity, cervical lymphadenopathy, or auscultated bruits. Heart: Regular rate and rhythm. There is a normal S1 and S2 with no murmurs, clicks, or gallops appreciated. Lungs: Rhonchi at both bases. There is no wheezing. Abdomen: Soft, Nontender but mildly distended. There are no palpable pulsatile masses or hepatosplenomegaly. There is no guarding, rigidity, or rebound noted. Extremities: No evidence of cyanosis, clubbing, or edema. There are easily palpable peripheral pulses. Skin: Warm and dry with poor turgor and multiple scabbed over lesions on his arms. emergency department treatment: awake overnight monitor, IV normal saline bolus x 2, IV cefepime Emergency Department course: The patient was evaluated in room C-10. A complete history and physical was performed including a septic protocol. Upper respiratory bio fire testing was obtained. Blood cultures were obtained. The patient was bolused with IV normal saline solution. Portable chest x-ray was performed. An order was placed for continuous cardiac monitoring. Patient's in a normal sinus rhythm at a rate of 88. The patient was hypotensive. He continued to receive 30 mL/kg bolus of IV fluid per sepsis protocol. He was given a dose of IV cefepime. I have personally spent greater than 45 minutes of critical care time in the direct management of this patient. This includes bedside care, interpretation of diagnostic studies, and testing, discussion with consultants, patient, and family members, and other required patient management activities. This 45 minutes is in excess of all separately billable procedures. Past Med/Surg History Problem List (Updated 04/17/24 @ 08:11 by Swati Farrell DO) Right lower lobe pneumonia (Acute) Influenza A (Acute) Septic shock (Acute) RLL pneumonia Influenza A Xerosis cutis Bilateral knee pain Generalized weakness Ambulatory dysfunction Diabetes mellitus with hyperglycemia (Chronic) Proteinuria Anemia (Chronic) Hypoalbuminemia GERD (gastroesophageal reflux disease) (Chronic) Hypertension (Chronic) ESRD (end stage renal disease) on dialysis (Chronic) Gout (Chronic) Hypotension (Acute) Leukocytosis (Acute) Dialysis patient (Chronic) Depression Medical History (Updated 04/17/24 @ 08:11 by Swati Farrell DO) Sepsis due to urinary tract infection Acute UTI Sepsis COVID-19 Osteoarthritis of knees, bilateral Gout of knee Vertigo Elevated troponin I level Hyperbilirubinemia Carpal tunnel syndrome of right wrist Surgical History History of incision and drainage History of appendectomy Family History Mother Cancer Denies family history of Ovarian cancer Prostate cancer Myocardial infarction Breast cancer Colorectal cancer Social History (Updated 03/29/24 @ 14:28 by DENISSE Allen) Smoking Status: Never smoker Second Hand Exposure: No; Do You Dip or Chew Tobacco: No; Hx Alcohol Use: No Hx Substance Use: No Preferred Language: Russian Communication Ability: Effective 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 Beliefs That Will Affect Care: None marital status: single Current Living Situation: Alone current occupational status: retired Other Information That Helps Us Care for You: No Feels Safe at Home: Yes Safety Concerns: Feels Safe At This Time Childhood Exposure to Second-Hand Smoke: No Diet: regular caffeine: Yes Dental Care, Regularly: No Physical Activity Frequency: Does not Exercise Seatbelt Use: always Sunscreen Use: No Assistive Devices: Walker and Wheelchair Allergies Allergies Allergy/AdvReac Type Severity Reaction Status Date / Time atorvastatin [From Lipitor] Allergy Unknown CAN'T Verified 03/29/24 14:20 REMEMBER simvastatin [From Zocor] Allergy Unknown CAN'T Verified 03/29/24 14:20 REMEMBER codeine AdvReac Intermediate Nausea Verified 03/29/24 14:20 Home Meds Home Medications Medication Instructions Recorded Confirmed ergocalciferol (vitamin D2) 1,250 1,250 mcg PO WK 05/19/21 04/17/24 mcg (50,000 unit) capsule (Vitamin D2) glucagon 1 mg solution for See Rx Instructions IM .COMPLEX 10/08/21 04/17/24 injection (Glucagon Emergency Kit) sucroferric oxyhydroxide 500 mg 500 mg PO TID 01/26/24 04/17/24 chewable tablet (Velphoro) Previous Rx's Medication Instructions Recorded lancets 33 gauge (OneTouch Delica #100 ea 10/08/21 Lancets) lancing device with lancets kit #1 ea 10/08/21 (iDoc24 Lancing Device kit) Wheelchair (Manual) (Manual #1 ea 09/18/22 Wheelchair) HEAVY DUTY WHEEL CHAIR (WITH FOOT #1 ea 10/08/22 RESTS) blood sugar diagnostic (OneTouch #50 ea 04/30/23 Verio test strips) pen needle, diabetic 31 gauge x #100 ea 05/27/23 5/16" (BD Ultra-Fine Short Pen Needle) pen needle, diabetic, safety 30 #100 ea 06/03/23 gauge x 3/16" lactulose 10 gram/15 mL (15 mL) 10 g (15 mL) PO DAILY PRN 06/29/23 oral solution constipation #600 mL tramadol 50 mg tablet 50 mg PO BID PRN pain #30 tabs 10/16/23 Wheelchair (Powered) (Power #1 ea 11/03/23 Wheelchair) cetirizine 10 mg tablet 10 mg PO DAILY #90 tabs 11/03/23 insulin glargine 100 unit/mL (3 6 unit (0.06 mL) SC QAM #15 mL 11/03/23 mL) subcutaneous pen (Lantus Solostar U-100 Insulin) rosuvastatin 10 mg tablet 10 mg PO HS #90 tabs 11/03/23 sertraline 50 mg tablet (Zoloft) 50 mg PO DAILY #90 tabs 11/03/23 mupirocin 2 % topical ointment 1 applic topical BID #15 grams 12/11/23 carvedilol 6.25 mg tablet 6.25 mg PO DIRECTED #100 tabs 03/12/24 omeprazole 20 mg capsule,delayed 20 mg PO DAILY #90 caps 03/25/24 release doxycycline hyclate 100 mg capsule 100 mg PO BID #20 caps 03/29/24 Results & Data (ED) Vital Signs Vital Signs - 24 hr 04/17/24 01:51 04/17/24 01:52 04/17/24 02:00 Temperature 39.2 C H Temperature Source Oral Pulse Rate 99 H 101 H 94 H Pulse Rate [Apical] Pulse Rate from SpO2 Sensor 95 H Pulse Rhythm [Apical] Pulse Strength [Apical] Respiratory Rate 22 16 Respiratory Effort / Characteristics Short of Breath SOB on Exertion Respiratory Depth Respiratory Pattern Blood Pressure 116/67 99/56 L Blood Pressure [Right Arm] Blood Pressure Mean 83 70 Blood Pressure Mean [Right Arm] Blood Pressure Position [Right Arm] Pulse Oximetry 98 99 Oxygen Delivery Method Room Air Room Air Sepsis Recent Fever Within 48 Hours Yes Sepsis New/Unexplained Change in Mental Status No Sepsis Action Taken by Nursing Physician Notified 04/17/24 02:08 04/17/24 02:34 04/17/24 03:30 Temperature 37.1 C Temperature Source Oral Pulse Rate 92 H 99 H Pulse Rate [Apical] 84 Pulse Rate from SpO2 Sensor Pulse Rhythm [Apical] Regular Pulse Strength [Apical] Normal Respiratory Rate 19 22 Respiratory Effort / Characteristics Non-Labored Spontaneous Respiratory Depth Normal Respiratory Pattern Regular Blood Pressure 97/59 L Blood Pressure [Right Arm] 108/57 L Blood Pressure Mean 72 Blood Pressure Mean [Right Arm] 74 Blood Pressure Position [Right Arm] Lying Pulse Oximetry 93 96 95 Oxygen Delivery Method Room Air Room Air Room Air Sepsis Recent Fever Within 48 Hours Sepsis New/Unexplained Change in Mental Status Sepsis Action Taken by Nursing 04/17/24 04:00 04/17/24 04:30 Temperature Temperature Source Pulse Rate Pulse Rate [Apical] 81 83 Pulse Rate from SpO2 Sensor Pulse Rhythm [Apical] Regular Regular Pulse Strength [Apical] Normal Normal Respiratory Rate 20 22 Respiratory Effort / Characteristics Non-Labored Spontaneous Non-Labored Spontaneous Respiratory Depth Normal Normal Respiratory Pattern Regular Regular Blood Pressure Blood Pressure [Right Arm] 114/57 L 110/60 Blood Pressure Mean Blood Pressure Mean [Right Arm] 76 76 Blood Pressure Position [Right Arm] Lying Lying Pulse Oximetry 96 92 Oxygen Delivery Method Room Air Room Air Sepsis Recent Fever Within 48 Hours Sepsis New/Unexplained Change in Mental Status Sepsis Action Taken by Nursing Laboratory Data 04/17/24 01:52 04/17/24 01:52 Lab Results 04/17/24 04/17/24 Range/Units 01:52 02:47 WBC 5.27 (4.8-10.8) K/ul RBC 3.50 L (4.70-6.10) M/uL Hgb 10.6 L (14.0-18.0) g/dl Hct 31.3 L (42.0-52.0) % MCV 89.4 (80.0-100.0) fL MCH 30.3 (25.0-34.0) pg MCHC 33.9 (32.0-36.0) g/dL RDW Std Deviation 44.8 (36.4-46.3) fL RDW Coeff of Inderjit 13.7 (11.5-14.5) % Plt Count 140 (130-400) K/uL MPV 9.8 (9.4-12.4) fL Immature Gran % (Auto) 0.4 % Neut % (Auto) 78.9 % Lymph % (Auto) 8.9 % [place] % (Auto) 9.3 % Eos % (Auto) 2.1 % Baso % (Auto) 0.4 % Neut # (Auto) 4.16 (1.40-6.50) K/uL Lymph # (Auto) 0.47 L (1.20-3.40) K/uL [place] # (Auto) 0.49 (0.11-0.59) K/uL Eos # (Auto) 0.11 (0.00-0.50) K/uL Baso # (Auto) 0.02 (0.00-0.20) K/uL Immature Gran # (Auto) 0.02 (0.01-0.20) K/uL Sodium 136 (136-145) mmol/L Potassium 3.6 (3.5-5.1) mmol/L Chloride 92 L (98-107) mmol/L Carbon Dioxide 34 H (21-32) mmol/L Anion Gap 10 (3-11) BUN 32 H (6-23) mg/dl Creatinine 7.13 H* (0.6-1.4) mg/dl Est Cr Clr Drug Dosing 12.7 ml/min eGFR 7.86 BUN/Creatinine Ratio 4.5 L (10-20) Glucose 181 H (70-99(Fasting)) mg/dl Lactate 1.7 (0.4-2.0) mmol/L Calcium 9.3 (8.6-10.3) mg/dl Magnesium 1.6 L (1.7-2.4) mg/dl Total Bilirubin 0.8 (0.2-1.0) mg/dl Direct Bilirubin 0.1 (0-0.2) mg/dl AST 19 (13-39) U/L ALT 13 (7-52) U/L Alkaline Phosphatase 116 H (34-104) U/L Troponin I High Sens 15.8 (0-20) pg/ml Total Protein 7.4 (6.0-8.3) gm/dl Albumin 3.8 (3.4-5.0) gm/dl Procalcitonin 1.44 H (0-0.5) ng/ml Adenovirus (PCR) Not Detected (NotDetected) B. pertussis DNA (PCR) Not Detected (NotDetected) B.parapertussis DNA PCR Not Detected (NotDetected) C. pneumoniae DNA (PCR) Not Detected (NotDetected) Coronavirus OC43 (PCR) Not Detected (NotDetected) Coronavirus HKU1 (PCR) Not Detected (NotDetected) Coronavirus 229E (PCR) Not Detected (NotDetected) SARS-CoV-2 (PCR) Not Detected (NotDetected) Coronavirus NL63 (PCR) Not Detected (NotDetected) Human Metapneumovir PCR Not Detected (NotDetected) Influenza A (H3) PCR DETECTED A (NotDetected) Influenza Type B (PCR) Not Detected (NotDetected) M. pneumoniae (PCR) Not Detected (NotDetected) Parainfluenza 1 (PCR) Not Detected (NotDetected) Parainfluenza 2 (PCR) Not Detected (NotDetected) Parainfluenza 3 (PCR) Not Detected (NotDetected) Parainfluenza 4 (PCR) Not Detected (NotDetected) RSV (PCR) Not Detected (NotDetected) Entero/Rhino (PCR) Not Detected (NotDetected) Administered Medications Budesonide (Budesonide 0.5 Mg/2 Ml Vial (Pulmicort)) 0.5 mg NEB BIDR ELENI Stop: 05/17/24 06:59 Last Admin: 04/17/24 07:52 Dose: 0.5 mg Documented By: EM Discontinued Medications Acetaminophen (Acetaminophen 500 Mg Tab) 1,000 mg PO NOW STA Stop: 04/17/24 02:09 Last Admin: 04/17/24 02:14 Dose: 1,000 mg Documented By: CDM Sodium Chloride (Nss) 1,000 mls @ 999 mls/hr IV .Q1H1M ONE Stop: 04/17/24 03:08 Last Infusion: 04/17/24 03:34 Dose: Infused Documented By: Admin: 04/17/24 02:15 Dose: 999 mls/hr Documented By: BRIEN Sodium Chloride (Nss) 1,000 mls @ 999 mls/hr IV .Q1H1M ONE Stop: 04/17/24 04:29 Last Infusion: 04/17/24 04:39 Dose: Infused Documented By: Admin: 04/17/24 03:38 Dose: 999 mls/hr Documented By: DENIS Cefepime HCl (Maxipime 2000mg) 2,000 mg in 20 mls @ 5 mls/min IV NOW STA; Protocol Stop: 04/17/24 03:33 Last Admin: 04/17/24 03:38 Dose: 5 mls/min Documented By: DENIS Magnesium Sulfate/Dextrose (Magnesium Sulfate / D5w) 1 gm in 100 mls @ 50 mls/hr IV ONE ONE Stop: 04/17/24 07:14 Last Admin: 04/17/24 05:51 Dose: 50 mls/hr Documented By: DENIS Imaging Data Radiologist's Impression: Chest X-Ray 04/17/24 02:08 EXAM: XR chest 1V portable CLINICAL HISTORY: Sepsis TECHNIQUE: An X-ray image of the chest is obtained in AP projection. COMPARISON: comparison with the previous study dated 09/02/2022. FINDINGS: Pulmonary Parenchyma: Hazziness of the right lower lung zone with possible infiltrates suggests an ongoing infectious process. Perihilar and basal accentuated broncho vascular markings suggesting lung congestion. Oblitration of both blunting of both costophrenic angles suggesting bilateral minimal pleural effusion. Linear calcified density is noted at the right diaphragmatic pleura. Heart and Mediastinum: Cardiomegally. No mediastinal widening or masses. No hilar or mediastinal lymphadenopathy. Bony Thorax: Bony thorax appears intact without fractures or deformities. Soft Tissues: Soft tissues overlying the chest wall are unremarkable. IMPRESSION: 1. Hazziness of the right lower lung zone with possible infiltrates suggests an ongoing infectious process.(new finding) 2. Cardiomegaly with prominent perihilar and perihilar and basal broncho vascular markings suggesting lung congestion,(stable) 3. Slight resolution of the previously noted bilateral pleural effusion. 4. Cardiomegaly(stable) Electronically signed by Loida Duran 04-17-2024 03:42 AM Discharge Plan Visit Data Chief Complaint: Cough Stated Complaint: COUGH X2 DAYS ED Provider: Swati Farrell Discharge Problem: Septic shock, Influenza A, Right lower lobe pneumonia Discharge Instructions Interventions: ED Discharge Assessment Last Done: 04/17/24 05:15
[2024-04-17 02:57] LABS: Albumin Level 3.8 gm/dl (3.4-5.0); BUN Creatinine Ratio 4.5 (10-20); Bilirubin Direct 0.1 mg/dl (0-0.2); Bilirubin,Total 0.8 mg/dl (0.2-1.0); Calcium 9.3 mg/dl (8.6-10.3); Creatinine Clr Calc Pharmacy 12.7 ml/min; Magnesium 1.6 mg/dl (1.7-2.4); Potassium 3.6 mmol/L (3.5-5.1); Total Protein 7.4 gm/dl (6.0-8.3); Troponin I High Sensitivity 15.8 pg/ml (0-20)
[2024-04-17 03:14] LABS: Adenovirus PCR Not Detected (NotDetected); Bordetella parapertussis PCR Not Detected (NotDetected); Bordetella pertussis PCR Not Detected (NotDetected); Chlamydia pneumoniae PCR Not Detected (NotDetected); Coronavirus 229E PCR Not Detected (NotDetected); Coronavirus CoV-2 (COVID19)PCR Not Detected (NotDetected); Coronavirus HKU1 PCR Not Detected (NotDetected); Coronavirus NL63 PCR Not Detected (NotDetected); Coronavirus OC43PCR Not Detected (NotDetected); Human Metapneumovirus PCR Not Detected (NotDetected); Influenza A (H3) PCR DETECTED (NotDetected); Influenza B PCR Not Detected (NotDetected); Mycoplasma pneumoniae PCR Not Detected (NotDetected); Parainfluenza Virus 1 PCR Not Detected (NotDetected); Parainfluenza Virus 2 PCR Not Detected (NotDetected); Parainfluenza Virus 3 PCR Not Detected (NotDetected); Parainfluenza Virus 4 PCR Not Detected (NotDetected); Respiratory Syncytial VirusPCR Not Detected (NotDetected); Rhinovirus/Enterovirus PCR Not Detected (NotDetected)
[2024-04-17] MEDS: CEFEPIME 2000MG 2,000 MG/20 ML SYR IV STA (03:38)
--- NOTE | 2024-04-17 03:42 | XRay Report ---
EXAM: XR chest 1V portable CLINICAL HISTORY: Sepsis TECHNIQUE: An X-ray image of the chest is obtained in AP projection. COMPARISON: comparison with the previous study dated 09/02/2022. FINDINGS: Pulmonary Parenchyma: Hazziness of the right lower lung zone with possible infiltrates suggests an ongoing infectious process. Perihilar and basal accentuated broncho vascular markings suggesting lung congestion. Oblitration of both blunting of both costophrenic angles suggesting bilateral minimal pleural effusion. Linear calcified density is noted at the right diaphragmatic pleura. Heart and Mediastinum: Cardiomegally. No mediastinal widening or masses. No hilar or mediastinal lymphadenopathy. Bony Thorax: Bony thorax appears intact without fractures or deformities. Soft Tissues: Soft tissues overlying the chest wall are unremarkable. IMPRESSION: 1. Hazziness of the right lower lung zone with possible infiltrates suggests an ongoing infectious process.(new finding) 2. Cardiomegaly with prominent perihilar and perihilar and basal broncho vascular markings suggesting lung congestion,(stable) 3. Slight resolution of the previously noted bilateral pleural effusion. 4. Cardiomegaly(stable) Electronically signed by Loida Duran 04-17-2024 03:42 AM
--- NOTE | 2024-04-17 05:11 | History & Physical Report ---
Date of Service April 17, 2024 Assessment & Plan (1) Sepsis: (2) Influenza A: (3) RLL pneumonia: (4) ESRD (end stage renal disease) on dialysis: (5) Diabetes mellitus with hyperglycemia: (6) Anemia: (7) GERD (gastroesophageal reflux disease): (8) Hypertension: (9) Depression: Plan 68 y/o male with h/o that includes ESRD on hemodialysis, anemia, GERD, depression, HTN, T2DM presenting with cough and fever: #Sepsis: #Influenza A // #RLL pneumonia: T39.2, tachycardic, tachypneic on arrival Procal 1.44 Presumed respiratory source: +Flu A, CXR consistent with RLL pneumonia Blood cultures pending S/P 2L NSS - less than 30cc/kg, additional fluids deferred based on predisposition to volume overload Continue Cefepime, start vancomycin, start azithromycin -MRSA nares pending, discontinue Vanc if negative Start Tamiflu Titrate O2 to maintain SpO2>94% Pulmicort Respules BID, Mucinex, incentive spirometry AM labs: CBC, BMP, Mag Droplet precautions #ESRD on HD: HD M/W/F Nephrology consult placed for HD management #T2DM: BSG checks ACHS Basal bolus insulin #Hypomagnesemia: Mag 1.6 - repleted Check AM mag Chronic Conditions: HTN: Carvedilol held d/t relative hypotension Depression: Continue Sertraline GERD: Continue PPI B/l knee pain: Continue Tylenol, Tramadol PRN HLD: Continue Crestor Dispo: Admit PCU Diet: dialysis renal VTE ppx: Heparin Full Code History of Present Illness Chief Complaint: cough, fever Primary Care Provider: Manoj Vasquez, 68 y/o male with h/o that includes ESRD on hemodialysis, anemia, GERD, depression, HTN, T2DM presenting with cough and fever. Cough x3 days, fever started today. Patient with URI in late March, s/p treatment with Doxy x10 days. Patient notes that sx never fully cleared prior to acute worsening 3 days ago. At present, denies chest pain, shortness of breath, fevers/chills. ED Course: T39.2, tachycardic, tachypneic on arrival +Flu A CXR consistent with RLL pneumonia S/P 2L NSS S/P Cefepimex1 Allergies Allergy/AdvReac Type Severity Reaction Status Date / Time atorvastatin [From Lipitor] Allergy Unknown CAN'T Verified 03/29/24 14:20 REMEMBER simvastatin [From Zocor] Allergy Unknown CAN'T Verified 03/29/24 14:20 REMEMBER codeine AdvReac Intermediate Nausea Verified 03/29/24 14:20 Home Medications Medication Instructions Recorded Confirmed Type ergocalciferol (vitamin D2) 1,250 1,250 mcg PO WK 05/19/21 04/17/24 History mcg (50,000 unit) capsule (Vitamin D2) glucagon 1 mg solution for See Rx Instructions IM .COMPLEX 10/08/21 04/17/24 History injection (Glucagon Emergency Kit) lancets 33 gauge ([employer] #100 ea 10/08/21 04/17/24 Rx Lancets) lancing device with lancets kit #1 ea 10/08/21 04/17/24 Rx ([employer] Lancing Device kit) Wheelchair (Manual) (Manual #1 ea 09/18/22 04/17/24 Rx Wheelchair) HEAVY DUTY WHEEL CHAIR (WITH FOOT #1 ea 10/08/22 04/17/24 Rx RESTS) blood sugar diagnostic (OneTouch #50 ea 04/30/23 04/17/24 Rx Verio test strips) pen needle, diabetic 31 gauge x #100 ea 05/27/23 04/17/24 Rx 5/16" (BD Ultra-Fine Short Pen Needle) pen needle, diabetic, safety 30 #100 ea 06/03/23 04/17/24 Rx gauge x 3/16" lactulose 10 gram/15 mL (15 mL) 10 g (15 mL) PO DAILY PRN 06/29/23 04/17/24 Rx oral solution constipation #600 mL tramadol 50 mg tablet 50 mg PO BID PRN pain #30 tabs 10/16/23 04/17/24 Rx Wheelchair (Powered) (Power #1 ea 11/03/23 04/17/24 Rx Wheelchair) cetirizine 10 mg tablet 10 mg PO DAILY #90 tabs 11/03/23 04/17/24 Rx insulin glargine 100 unit/mL (3 6 unit (0.06 mL) SC QAM #15 mL 11/03/23 04/17/24 Rx mL) subcutaneous pen (Lantus Solostar U-100 Insulin) rosuvastatin 10 mg tablet 10 mg PO HS #90 tabs 11/03/23 04/17/24 Rx sertraline 50 mg tablet (Zoloft) 50 mg PO DAILY #90 tabs 11/03/23 04/17/24 Rx mupirocin 2 % topical ointment 1 applic topical BID #15 grams 12/11/23 04/17/24 Rx sucroferric oxyhydroxide 500 mg 500 mg PO TID 01/26/24 04/17/24 History chewable tablet (Velphoro) carvedilol 6.25 mg tablet 6.25 mg PO DIRECTED #100 tabs 03/12/24 04/17/24 Rx omeprazole 20 mg capsule,delayed 20 mg PO DAILY #90 caps 03/25/24 04/17/24 Rx release doxycycline hyclate 100 mg capsule 100 mg PO BID #20 caps 03/29/24 04/17/24 Rx Past Med/Surg History Problem List (Updated 04/17/24 @ 08:11 by Swati Farrell DO) Right lower lobe pneumonia (Acute) Influenza A (Acute) Septic shock (Acute) RLL pneumonia Influenza A Xerosis cutis Bilateral knee pain Generalized weakness Ambulatory dysfunction Diabetes mellitus with hyperglycemia (Chronic) Proteinuria Anemia (Chronic) Hypoalbuminemia GERD (gastroesophageal reflux disease) (Chronic) Hypertension (Chronic) ESRD (end stage renal disease) on dialysis (Chronic) Gout (Chronic) Hypotension (Acute) Leukocytosis (Acute) Dialysis patient (Chronic) Depression Medical History (Updated 04/17/24 @ 08:11 by Swati Farrell DO) Sepsis due to urinary tract infection Acute UTI Sepsis COVID-19 Osteoarthritis of knees, bilateral Gout of knee Vertigo Elevated troponin I level Hyperbilirubinemia Carpal tunnel syndrome of right wrist Surgical History History of incision and drainage History of appendectomy Family History Mother Cancer Denies family history of Ovarian cancer Prostate cancer Myocardial infarction Breast cancer Colorectal cancer Social History (Updated 03/29/24 @ 14:28 by DENISSE Allen) Smoking Status: Never smoker Second Hand Exposure: No; Do You Dip or Chew Tobacco: No; Hx Alcohol Use: No Hx Substance Use: No Preferred Language: Nigerian Communication Ability: Effective 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: No Beliefs That Will Affect Care: None marital status: single Current Living Situation: Alone current occupational status: retired Feels Safe at Home: Yes Childhood Exposure to Second-Hand Smoke: No Diet: regular caffeine: Yes Dental Care, Regularly: No Physical Activity Frequency: Does not Exercise Seatbelt Use: always Sunscreen Use: No Assistive Devices: Walker and Wheelchair Review of Systems Review of Systems: as per HPI Physical Exam Physical Exam: Constitutional: lethargic, mild distress HEENT: NCAT, no conjunctival injection CV: extremities well-perfused, 1+ LE edema Resp: Upper lung field clear to auscultation, RLL with crackles, diminished breath sounds, no wheezing appreciated GI: nondistended MSK: no gross deformities Skin: warm, dry, no rash appreciated Neuro: alert, oriented, no focal neurologic deficit appreciated Results & Data Results & Data Vital Signs (Past 12 Hours) Vital Signs Temp Pulse Pulse Resp BP BP Pulse Ox 04/17/24 04:30 83 22 110/60 92 04/17/24 04:00 81 20 114/57 L 96 04/17/24 03:30 37.1 C 84 22 108/57 L 95 04/17/24 02:34 99 H 96 04/17/24 02:08 92 H 19 97/59 L 93 04/17/24 02:00 94 H 16 99/56 L 99 04/17/24 01:52 39.2 C H 101 H 22 116/67 98 04/17/24 01:51 99 H O2 Del Method 04/17/24 04:30 Room Air 04/17/24 04:00 Room Air 04/17/24 03:30 Room Air 04/17/24 02:34 Room Air 04/17/24 02:08 Room Air 04/17/24 02:00 Room Air 04/17/24 01:52 Room Air 04/17/24 01:51 Supervising Physician Co-Signing Physician Notes Attending addendum: I have physically seen this patient, have supervised the medical residents activities, and agree with the H&P unless as otherwise noted. Assessment and Plan: The patient is a 68-year-old male with past medical history including ESRD on HD, anemia of chronic disease, depression, GERD, hypertension, diabetes mellitus type 2 insulin requiring, and morbid obesity. He presents to the emergency department with 3 days of cough, fever, generalized weakness, shortness of breath, dyspnea on exertion. He reports having been treated for a pneumonia about 2 weeks ago with 7 days of doxycycline, had briefly gotten better, but since has worsened. #Sepsis/acute respiratory failure with hypoxia/influenza A/right lower lobe pneumonia- From the ED the patient received the following: Normal saline 1 L bolus IV x 2, Tylenol 1 g p.o., cefepime 2 g IV. Continue cefepime 2 g IV every 12 hours Vancomycin IV per pharmacokinetic monitoring Azithromycin 500 mg p.o. daily Order MRSA nares, and discontinue vancomycin if negative Tamiflu 75 mg p.o. twice daily, to renally dose Nasal cannula oxygen, titrate to keep pulse ox 92-94% Pulmicort Respules 0.5 mg inhaled twice daily Mucinex 60 mg p.o. every 12 hours Incentive spirometry Droplet precautions ESRD on HD- Patient receives dialysis Thursday, Thursday and Thursday, have received dialysis 24 hours ago Consult nephrology Diabetes mellitus type 2, insulin requiring Insulin as noted Hypomagnesemia magnesium 1.6 on admission Replacement as noted and recheck laboratories in a.m. Remaining orders and notations as noted Resident Activity Tracking Resident Involvement: Resident Care Provided Care Provided: Adult Hospital Medicine (1) Sepsis Sepsis acute organ dysfunction status: without acute organ dysfunction Sepsis type: sepsis due to unspecified organism Qualified Code(s): A41.9 - Sepsis, unspecified organism (6) Anemia Anemia type: unspecified type Qualified Code(s): D64.9 - Anemia, unspecified
[2024-04-17] MEDS ORDERED: traMADol HCL 50 MG TABLET PO PRN (05:15)
[2024-04-17] MEDS ORDERED: ONDANSETRON INJ 2 MG/ML 2 ML VIAL IV PRN (05:15)
[2024-04-17] MEDS ORDERED: DEXTROSE 50% 50 ML SYRINGE IV PRN (05:15)
[2024-04-17] MEDS ORDERED: CARBOHYDRATES FOR HYPOGLYCEMIA PO PRN (05:15)
[2024-04-17] MEDS ORDERED: GLUCOSE 40% GEL 15 GM TUBE PO PRN (05:15)
[2024-04-17] MEDS ORDERED: VANCOMYCIN CONSULT ACTIVE PRN (05:15)
[2024-04-17] MEDS ORDERED: GLUCAGON FOR INJ 1 MG VIAL SQ PRN (05:15)
[2024-04-17] MEDS ORDERED: GLUCOSE 10 TAB/TUBE PO PRN (05:15)
[2024-04-17] MEDS ORDERED: LACTULOSE SYRUP 20 GM/30 ML UDC PO PRN (05:15)
[2024-04-17] MEDS: MAGNESIUM SULFATE / D5W 1 GM/100 ML BAG IV ONE (05:51)
--- NOTE | 2024-04-17 07:18 | Electrocardiogram Report ---
Test Reason : Blood Pressure : */* mmHG Vent. Rate : 89 BPM Atrial Rate : 89 BPM P-R Int : 150 ms QRS Dur : 98 ms QT Int : 380 ms P-R-T Axes : 1 18 78 degrees QTcB Int : 462 ms Normal sinus rhythm Normal ECG When compared with ECG of 02-Sep-2022 01:51, No significant change was found Confirmed by Jagdeep Villarreal ([id number]) on 04/17/2024 7:18:14 AM Referred By: REFERRED SELF Confirmed By: Jagdeep Villarreal
[2024-04-17] MEDS: BUDESONIDE 0.5 MG/2 ML VIAL (PULMICORT) NEB SCH (07:52)
[2024-04-17] MEDS: VANCOMYCIN HCL 2,500 MG in SODIUM CHLORIDE 0.9% 500 ML IV ONE (08:29)
[2024-04-17] MEDS: AZITHROMYCIN 250 MG TAB PO SCH (08:31)
[2024-04-17] MEDS: OSELTAMIVIR PHOSPHATE SUSP 30 MG/5 ML UDP PO ONE (08:31)
[2024-04-17] MEDS: guaiFENesin 600 MG TABCR PO SCH (08:32)
[2024-04-17] MEDS: SERTRALINE HCL 50 MG TABLET PO SCH (08:32)
[2024-04-17] MEDS: CETIRIZINE HCL 10 MG TABLET PO SCH (08:32)
[2024-04-17] MEDS: PANTOprazole 40 MG TAB PO SCH (08:32)
[2024-04-17] MEDS: HEPARIN SOD 5,000 UNIT/0.5 ML VIAL SQ SCH (08:33)
[2024-04-17] MEDS: OSELTAMIVIR PHOSPHATE SUSP 30 MG/5 ML UDP PO SCH (08:33)
[2024-04-17] MEDS: LANTUS PER UNIT CHARGE SQ SCH (10:28)
[2024-04-17] MEDS: INSULIN ASPART PER UNIT CHARGE SC SCH (10:28)
--- NOTE | 2024-04-17 10:42 | Nephrology Consultation ---
Date of Consultation April 17, 2024 Assessment & Plan (1) ESRD (end stage renal disease) on dialysis: (2) Anemia: (3) Right lower lobe pneumonia: (4) Influenza A: Plan Yesterday, secondary to diabetic nephropathy, has been on dialysis Thursday, , Thursday via left brachiocephalic AV fistula, dialysis at [facility] dialysis center at [place]. Had last dialysis Thursday as his regular schedule, was uneventful. Currently electrolyte, blood pressure, volume status acceptable. Admitted with more than 1 week history of cough and fever and found to be positive for influenza A and right lower lobe pneumonia. Started empirically on azithromycin and cefepime. Hemoglobin is 10.6. --Will keep on dialysis for Thursday as his regular Thursday, Thursday, Thursday schedule. --Left arm nephrology precaution, dose medication for eGFR less than 10. --Continue Nephrocaps. Thank you for allowing me to participate in your patient's care. History of Present Illness Reason for Consultation: ESRD on HD, admitted with flu and pneumonia. Attending Physician: Celestine Magdaleno MD History of Present Illness Mr. Librado Moon is a 68 year-old male with past medical history significant for end-stage kidney disease, on hemodialysis, diabetes admitted to the hospital with flu and pneumonia. Nephrology consult requested for management of hemodialysis while inpatient. EMR records are reviewed in detail during patient's visit. Librado presented to ER yesterday with fever and cough for more than a week. In ER evaluation was positive for influenza A. Chest x-ray was notable for right lower lobe infiltrate. He was impatience empirically started on azithromycin and cefepime. Blood pressure has been relatively low, historically child blood pressure low. Electrolyte acceptable. Had last dialysis Thursday. ESRD due to DKD, has been on hemodialysis at [facility] in [place] on a MWF schedule via L BC AVF . He reports overall feeling poorly mainly with cough and fever but denies shortness of breath. Allergies Allergy/AdvReac Type Severity Reaction Status Date / Time atorvastatin [From Lipitor] Allergy Unknown CAN'T Verified 03/29/24 14:20 REMEMBER simvastatin [From Zocor] Allergy Unknown CAN'T Verified 03/29/24 14:20 REMEMBER codeine AdvReac Intermediate Nausea Verified 03/29/24 14:20 Home Medications Medication Instructions Recorded Confirmed Type ergocalciferol (vitamin D2) 1,250 1,250 mcg PO WK 05/19/21 04/17/24 History mcg (50,000 unit) capsule (Vitamin D2) glucagon 1 mg solution for See Rx Instructions IM .COMPLEX 10/08/21 04/17/24 History injection (Glucagon Emergency Kit) lancets 33 gauge ([employer] #100 ea 10/08/21 04/17/24 Rx Lancets) lancing device with lancets kit #1 ea 10/08/21 04/17/24 Rx (Otterology Lancing Device kit) Wheelchair (Manual) (Manual #1 ea 09/18/22 04/17/24 Rx Wheelchair) HEAVY DUTY WHEEL CHAIR (WITH FOOT #1 ea 10/08/22 04/17/24 Rx RESTS) blood sugar diagnostic (OneTouch #50 ea 04/30/23 04/17/24 Rx Verio test strips) pen needle, diabetic 31 gauge x #100 ea 05/27/23 04/17/24 Rx 5/16" (BD Ultra-Fine Short Pen Needle) pen needle, diabetic, safety 30 #100 ea 06/03/23 04/17/24 Rx gauge x 3/16" lactulose 10 gram/15 mL (15 mL) 10 g (15 mL) PO DAILY PRN 06/29/23 04/17/24 Rx oral solution constipation #600 mL tramadol 50 mg tablet 50 mg PO BID PRN pain #30 tabs 10/16/23 04/17/24 Rx Wheelchair (Powered) (Power #1 ea 11/03/23 04/17/24 Rx Wheelchair) cetirizine 10 mg tablet 10 mg PO DAILY #90 tabs 11/03/23 04/17/24 Rx insulin glargine 100 unit/mL (3 6 unit (0.06 mL) SC QAM #15 mL 11/03/23 04/17/24 Rx mL) subcutaneous pen (Lantus Solostar U-100 Insulin) rosuvastatin 10 mg tablet 10 mg PO HS #90 tabs 11/03/23 04/17/24 Rx sertraline 50 mg tablet (Zoloft) 50 mg PO DAILY #90 tabs 11/03/23 04/17/24 Rx mupirocin 2 % topical ointment 1 applic topical BID #15 grams 12/11/23 04/17/24 Rx sucroferric oxyhydroxide 500 mg 500 mg PO TID 01/26/24 04/17/24 History chewable tablet (Velphoro) carvedilol 6.25 mg tablet 6.25 mg PO DIRECTED #100 tabs 03/12/24 04/17/24 Rx omeprazole 20 mg capsule,delayed 20 mg PO DAILY #90 caps 03/25/24 04/17/24 Rx release doxycycline hyclate 100 mg capsule 100 mg PO BID #20 caps 03/29/24 04/17/24 Rx Patient History Medical History (Updated 04/17/24 @ 08:11 by Swati Farrell DO) Sepsis due to urinary tract infection Acute UTI Sepsis COVID-19 Osteoarthritis of knees, bilateral Gout of knee Vertigo Elevated troponin I level Hyperbilirubinemia Carpal tunnel syndrome of right wrist Surgical History History of incision and drainage History of appendectomy Family History Mother Cancer Denies family history of Ovarian cancer Prostate cancer Myocardial infarction Breast cancer Colorectal cancer Social History (Updated 03/29/24 @ 14:28 by DENISSE Allen) Smoking Status: Never smoker Second Hand Exposure: No; Do You Dip or Chew Tobacco: No; Hx Alcohol Use: No Hx Substance Use: No Preferred Language: Salvadorean Communication Ability: Effective Retail Selling Specialist Required: No Beliefs That Will Affect Care: None marital status: single Current Living Situation: Alone current occupational status: retired Other Information That Helps Us Care for You: No Feels Safe at Home: Yes Safety Concerns: Feels Safe At This Time Childhood Exposure to Second-Hand Smoke: No Diet: regular caffeine: Yes Dental Care, Regularly: No Physical Activity Frequency: Does not Exercise Seatbelt Use: always Sunscreen Use: No Assistive Devices: Walker and Wheelchair Review of Systems Review of Systems: Detailed review of system was done and pertinent positives and negatives are mentioned above. Physical Exam Constitutional: WD/WN, vitals as above + ill appearing; no acute distress Eyes: + anicteric sclerae Respiratory: + cough Auscultation: + diminished lashell ng sounds and + crackles Cardiovascular: RRR, no murmur, no edema Extremities: + AV fistula (L BC AVF) Gastrointestinal (Abdomen): Inspection/Auscultation: abdomen normal to inspection Musculoskeletal: Extremities: extremities normal to inspection Skin: no rashes, warm and dry Neurologic: no focal motor deficits Psychiatric: Orientation: alert and oriented x 3 Affect: euthymic affect Results & Data Vital Signs (Past 12 Hours) Vital Signs Temp Pulse Pulse Resp BP BP Pulse Ox 04/17/24 08:00 81 21 120/61 99 04/17/24 07:54 85 14 99 04/17/24 07:33 76 04/17/24 06:16 04/17/24 06:16 36.9 C 79 20 137/49 L 98 04/17/24 06:00 78 20 132/49 L 98 04/17/24 06:00 04/17/24 04:30 83 22 110/60 92 04/17/24 04:00 81 20 114/57 L 96 04/17/24 03:30 37.1 C 84 22 108/57 L 95 04/17/24 02:34 99 H 96 04/17/24 02:08 92 H 19 97/59 L 93 04/17/24 02:00 94 H 16 99/56 L 99 04/17/24 01:52 39.2 C H 101 H 22 116/67 98 04/17/24 01:51 99 H Pulse Ox O2 Del Method O2 Del Method O2 Flow Rate 04/17/24 08:00 Nasal Cannula 2 04/17/24 07:54 Nasal Cannula 2 04/17/24 07:33 04/17/24 06:16 Room Air 04/17/24 06:16 Room Air 04/17/24 06:00 Room Air 04/17/24 06:00 92 Room Air 04/17/24 04:30 Room Air 04/17/24 04:00 Room Air 04/17/24 03:30 Room Air 04/17/24 02:34 Room Air 04/17/24 02:08 Room Air 04/17/24 02:00 Room Air 04/17/24 01:52 Room Air 04/17/24 01:51 PG Care Time/CCT Total # of Minutes Spent Total Time Spent with Patient: Total time spent is greater than 50% in coordination of care (as documented) at patient's floor/unit and/or counseling patient: Coding Level of Care Code 50373 INT INP/OBS CARE Diagnoses ESRD (end stage renal disease) on dialysis N18.6; Z99.2 Anemia D64.9 Anemia type: unspecified type Right lower lobe pneumonia J18.9 Influenza A J10.1 (2) Anemia Anemia type: unspecified type Qualified Code(s): D64.9 - Anemia, unspecified
[2024-04-17] MEDS: NEPHROCAPS PO SCH (12:59)
--- NOTE | 2024-04-17 13:18 | Pharmacy Report ---
Pharmacy PK ABX Note - Date of Service April 17, 2024 - Assessment and Plan Assessment 68 year old M receiving vancomcyin, cefepime, tamiflu for treatment of influenza A with possible secondary bacterial infection. Pertinent microbiologic data includes: Positive MRSA Nasal Swab, blood cultures pending. HD MWF, continuing current schedule. Will dose vancomycin by levels. Pre-dialysis level in AM to assist with further dosing Plan Vancomycin * Loading dose: 2500 mg IV x 1 * Maintenance dose: dose by levels, dialysis patient * Random level ordered for 04/18 AM Pharmacy will continue to follow and will adjust dose/frequency as necessary. Thank you. Pharmacy has transitioned to AUC monitoring for vancomycin. AUC/TACHO is the preferred PK/PD target and is associated with decreased risk of nephrotoxicity compared to traditional trough targets.
--- NOTE | 2024-04-17 19:23 | Billing Data ---
Date of Service April 17, 2024 Coding Level of Care Code 36436 INT INP/OBS CARE
[2024-04-17] MEDS: ROSUVASTATIN CALCIUM 10 MG TAB PO SCH (20:54)
[2024-04-17] MEDS: CEFEPIME 1000MG 1,000 MG/10 ML SYR IV SCH (20:54)
[2024-04-17] MEDS: DEXTROMETHORPHAN POLYMR COMPLX 60 MG/10 ML UDP PO PRN (23:57)
[2024-04-18] MEDS ORDERED: CEFEPIME 2 GM VIAL IV SCH (03:30)
[2024-04-18 05:57] LABS: Basophils # (auto) 0.02 K/uL (0.00-0.20); Basophils % (auto) 0.5 %; Eosinophils # (auto) 0.04 K/uL (0.00-0.50); Hemoglobin 9.8 g/dl (14.0-18.0); Immature Granulocytes # (auto) 0.03 K/uL (0.01-0.20); Immature Granulocytes % (auto) 0.8 %; Lymphocytes # (auto) 0.62 K/uL (1.20-3.40); Lymphocytes % (auto) 16.3 %; Mean Corpuscular Hemoglobin 29.6 pg (25.0-34.0); Mean Corpuscular Hgb Conc 32.7 g/dL (32.0-36.0); Mean Corpuscular Volume 90.6 fL (80.0-100.0); Monocytes # (auto) 0.59 K/uL (0.11-0.59); Monocytes % (auto) 15.5 %; Neutrophils # (auto) 2.51 K/uL (1.40-6.50); Neutrophils % (auto) 65.9 %; Platelet Count 114 K/uL (130-400); RDW Standard Deviation 46.6 fL (36.4-46.3); Red Blood Count 3.31 M/uL (4.70-6.10); White Blood Count 3.81 K/ul (4.8-10.8)
[2024-04-18 06:03] LABS: Albumin Level 3.4 gm/dl (3.4-5.0); BUN Creatinine Ratio 4.8 (10-20); Calcium 8.4 mg/dl (8.6-10.3); Creatinine Clr Calc Pharmacy 9.7 ml/min; Magnesium 1.9 mg/dl (1.7-2.4); Phosphorus 3.8 mg/dl (2.5-4.9); Potassium 3.5 mmol/L (3.5-5.1)
--- NOTE | 2024-04-18 08:13 | Pharmacy Report ---
Pharmacy PK ABX Note - Date of Service April 18, 2024 - Assessment and Plan Assessment 04/18 * Random vancomycin level this AM was ~19 mcg/ml - anticipate 30% removal of drug by dialysis today. Will give a supplemental dose of vancomycin 1000 mg iv x 1 after dialysis today to maintain therapeutic levels * Plan to recheck random vancomycin level prior to next dialysis session to assist with further dosing 04/17 * 68 year old M receiving vancomcyin, cefepime, tamiflu for treatment of influenza A with possible secondary bacterial infection. Pertinent microbiologic data includes: Positive MRSA Nasal Swab, blood cultures pending. HD MWF, continuing current schedule. Will dose vancomycin by levels. Pre- dialysis level in AM to assist with further dosing Plan Vancomycin * 1000 mg x1 after dialysis today * Will order random vancomycin level prior to next dialysis session. Pharmacy will continue to follow and will adjust dose/frequency as necessary. Thank you. Pharmacy has transitioned to AUC monitoring for vancomycin. AUC/TACHO is the preferred PK/PD target and is associated with decreased risk of nephrotoxicity compared to traditional trough targets.
--- NOTE | 2024-04-18 09:43 | Nephrology Progress Note ---
Date of Service April 18, 2024 Assessment & Plan (1) ESRD (end stage renal disease) on dialysis: (2) Anemia: (3) Right lower lobe pneumonia: (4) Influenza A: Plan ESRD secondary to diabetic nephropathy, has been on dialysis Thursday, , Thursday via left brachiocephalic AV fistula, dialysis at [facility] dialysis center at [place]. Had last dialysis Thursday as his regular schedule, was uneventful. Currently electrolyte, blood pressure, volume status acceptable. A dmitted with more than 1 week history of cough and fever and found to be positive for influenza A and right lower lobe pneumonia. Started empirically on azithromycin and cefepime. Hemoglobin is 10.6 Clinically doing better, electrolyte, volume status acceptable. Fever resolved, continue antibiotic. Hb 9.8 --tolerating HD --epogen 50886 units x 1 dose now --Left arm nephrology precaution, dose medication for eGFR less than 10. --Continue Nephrocaps. Admission and Anticipated Discharge Date Admission Date: April 17, 2024 Subjective Librado was seen and evaluated this morning. He reports overall feeling slightly better, continues to have some cough but denies shortness of breath. No fever or chills. Blood pressure slightly elevated, electrolyte acceptable. Review of Systems Review of Systems: Detailed review of system was done and pertinent positives and negatives are mentioned above. Physical Exam Constitutional: WD/WN, vitals as above no acute distress Eyes: + anicteric sclerae Respiratory: + cough Auscultation: + diminished lashell ng sounds and + crackles Cardiovascular: RRR, no murmur, no edema Extremities: + AV fistula (L BC AVF with thrill and bruit) Musculoskeletal: Extremities: extremities normal to inspection Skin: no rashes, warm and dry Neurologic: no focal motor deficits Psychiatric: Orientation: alert and oriented x 3 Affect: euthymic affect Results & Data Vital Signs (Past 12 Hours) Vital Signs Temp Pulse Pulse Pulse Resp BP Pulse Ox 04/18/24 08:00 36.9 C 97 H 18 159/65 H 98 04/18/24 06:07 84 19 96 04/18/24 04:00 37.1 C 82 20 166/64 H 97 04/18/24 00:07 161/74 H 04/17/24 23:18 37.5 C 87 20 171/74 H 94 04/17/24 21:52 80 O2 Del Method 04/18/24 08:00 Room Air 04/18/24 06:07 Room Air 04/18/24 04:00 Room Air 04/18/24 00:07 04/17/24 23:18 Room Air 04/17/24 21:52 PG Care Time/CCT Total # of Minutes Spent Total Time Spent with Patient: Total time spent is greater than 50% in coordination of care (as documented) at patient's floor/unit and/or counseling patient: Coding Level of Care Code 94899 SUB INP/OBS CARE 235MIN Diagnoses ESRD (end stage renal disease) on dialysis N18.6; Z99.2 Anemia D64.9 Anemia type: unspecified type Right lower lobe pneumonia J18.9 Influenza A J10.1 (2) Anemia Anemia type: unspecified type Qualified Code(s): D64.9 - Anemia, unspecified
--- NOTE | 2024-04-18 09:59 | Hospitalist Progress Note ---
Date of Service April 18, 2024 Assessment & Plan (1) Sepsis: Plan: 2nd to Influenza A // #RLL pneumonia: T39.2, tachycardic, tachypneic on arrival Procal 1.44 Presumed respiratory source: +Flu A, CXR consistent with RLL pneumonia Blood cultures pending S/P 2L NSS - less than 30cc/kg, additional fluids deferred based on predisposition to volume overload Continue Cefepime, started vancomycin, started azithromycin Start Tamiflu Titrate O2 to maintain SpO2>94% Pulmicort Respules BID, Mucinex, incentive spirometry Droplet precautions (2) Influenza A: Plan: Tamiflu (3) RLL pneumonia: Plan: Cefepime,vancomycin, azithromycin (4) ESRD (end stage renal disease) on dialysis: Plan: HD as per renal (5) Diabetes mellitus with hyperglycemia: Plan: BSG checks ACHS (6) Anemia: Plan: monitor h/h (7) GERD (gastroesophageal reflux disease): Plan: Continue (8) Hypertension: Plan: Carvedilol held d/t relative hypote (9) Depression: Plan: Continue Sertraline Plan 68 y/o male with h/o that includes ESRD on hemodialysis, anemia, GERD, depression, HTN, T2DM presenting with cough and fever: Admission and Anticipated Discharge Date Admission Date: April 17, 2024 Subjective No events overnight. Pt resting comfortably in bed. Review of Systems Review of Systems: CONST: Negative for fever, body aches and chills. HENT: Negative for neck pain/stiffness, headache, congestion, sore throat, swelling. EYES: Negative for discharge/pain or vision changes. RESP: Negative for cough/hemoptysis and shortness of breath. CV: Negative chest pain, difficulty breathing, palpitations. ABD: Negative pain, nausea, vomiting. : Negative increase frequency, dysuria, blood in urine or stool. MUSC: Negative for muscle aches, edema. SKIN: Negative rash, lesions/sores. NEURO: Negative headache, dizziness, weakness. Physical Exam Physical Exam: GENERAL APPEARANCE NAD, activity normal for age, well developed/ well nourished, no cyanosis, pallor, or diaphoresis. EYES lids/conjunctiva normal. EARS/NOSE/THROAT Mucous membranes moist, nares normal, lips/teeth normal uvula midline without oral pharyngeal erythema, exudate or swelling TMs normal bilaterally. No lymphangitis/lymphedema. HEAD/NECK normocephalic atraumatic, no facial trauma, neck is supple. RESPIRATORY respiratory effort normal, speaks in full sentences, no tripod position, no accessory muscle use. Lungs clear to auscultation without rhonchi, wheezes, rales CARDIAC Regular rate and rhythm, no edema. ABDOMINAL Soft, ND/NT. No evidence of fluid wave. No pulsatile masses on exam, rebound tenderness, Lopez sign or pain over Mcburney's point. MUSCLES/EXTREMITIES No abnormal range of motion, no swelling. SKIN Warm, pink and dry. No rashes, dermatoses, petechiae or lesions. NEUROLOGICAL Speech is clear and appropriate. Normal level of consciousness. Gait and coordination are normal. 5/5 strength in all extremities. PSYCH Normal mood and affect. Judgement/competence is appropriate Results & Data Results & Data Vital Signs (Past 12 Hours) Vital Signs Temp Pulse Pulse Resp BP Pulse Ox O2 Del Method 04/18/24 08:00 36.9 C 97 H 18 159/65 H 98 Room Air 04/18/24 06:07 84 19 96 Room Air 04/18/24 04:00 37.1 C 82 20 166/64 H 97 Room Air 04/18/24 00:07 161/74 H 04/17/24 23:18 37.5 C 87 20 171/74 H 94 Room Air PG Care Time/CCT Total # of Minutes Spent Total Time Spent with Patient: Total time spent is greater than 50% in coordination of care (as documented) at patient's floor/unit and/or counseling patient: Coding Level of Care Code 58464 SUB INP/OBS CARE 2/35MIN Diagnoses Sepsis A41.9 Sepsis acute organ dysfunction status: without acute organ dysfunction Sepsis type: sepsis due to unspecified organism Influenza A J10.1 RLL pneumonia J18.9 ESRD (end stage renal disease) on dialysis N18.6; Z99.2 Diabetes mellitus with hyperglycemia E11.65 Anemia D64.9 Anemia type: unspecified type GERD (gastroesophageal reflux disease) K21.9 Hypertension I10 Depression F32.A (1) Sepsis Sepsis acute organ dysfunction status: without acute organ dysfunction Sepsis type: sepsis due to unspecified organism Qualified Code(s): A41.9 - Sepsis, unspecified organism (6) Anemia Anemia type: unspecified type Qualified Code(s): D64.9 - Anemia, unspecified
[2024-04-18] MEDS: EPOETIN ALFA 10,000 UNITS/ML VIAL IV STA (13:01)
[2024-04-18] MEDS: VANCOMYCIN HCL 1,000 MG/270 ML BAG IV ONE (17:30)
[2024-04-18] MEDS: OSELTAMIVIR PHOSPHATE SUSP 30 MG/5 ML UDP PO SCH (17:33)
[2024-04-19] MEDS: ACETAMINOPHEN 325 MG TAB PO PRN (00:25)
[2024-04-19 06:38] LABS: Basophils # (auto) 0.02 K/uL (0.00-0.20); Basophils % (auto) 0.6 %; Eosinophils % (auto) 3.1 %; Hematocrit (blood only) 32.4 % (42.0-52.0); Immature Granulocytes # (auto) 0.01 K/uL (0.01-0.20); Immature Granulocytes % (auto) 0.3 %; Mean Corpuscular Hemoglobin 30.8 pg (25.0-34.0); Mean Corpuscular Volume 90.8 fL (80.0-100.0); Mean Platelet Volume 10.1 fL (9.4-12.4); Monocytes % (auto) 15.5 %; Neutrophils # (auto) 1.69 K/uL (1.40-6.50); Neutrophils % (auto) 52.5 %; Platelet Count 116 K/uL (130-400); RDW Standard Deviation 46.5 fL (36.4-46.3); Red Blood Count 3.57 M/uL (4.70-6.10); White Blood Count 3.22 K/ul (4.8-10.8)
[2024-04-19] MEDS: carvediloL 6.25 MG TAB PO SCH (08:14)
--- NOTE | 2024-04-19 10:07 | Hospitalist Progress Note ---
Date of Service April 19, 2024 Assessment & Plan (1) Sepsis: Plan: 2nd to Influenza A // #RLL pneumonia: T39.2, tachycardic, tachypneic on arrival Procal 1.44 Presumed respiratory source: +Flu A, CXR consistent with RLL pneumonia Blood cultures pending S/P 2L NSS - less than 30cc/kg, additional fluids deferred based on predisposition to volume overload Continue Cefepime, started vancomycin, started azithromycin Start Tamiflu Titrate O2 to maintain SpO2>94% Pulmicort Respules BID, Mucinex, incentive spirometry Droplet precautions (2) Influenza A: Plan: Tamiflu (3) RLL pneumonia: Plan: Cefepime,vancomycin, azithromycin (4) ESRD (end stage renal disease) on dialysis: Plan: HD as per renal (5) Diabetes mellitus with hyperglycemia: Plan: BSG checks ACHS (6) Anemia: Plan: monitor h/h (7) GERD (gastroesophageal reflux disease): Plan: Continue (8) Hypertension: Plan: Carvedilol held d/t relative hypote (9) Depression: Plan: Continue Sertraline Plan 68 y/o male with h/o that includes ESRD on hemodialysis, anemia, GERD, depression, HTN, T2DM presenting with cough and fever: Plan to d/c home 04/20 on oral abx. Admission and Anticipated Discharge Date Admission Date: April 17, 2024 Subjective No events overnight. Pt resting comfortably in bed. Review of Systems Review of Systems: CONST: Negative for fever, body aches and chills. HENT: Negative for neck pain/stiffness, headache, congestion, sore throat, swelling. EYES: Negative for discharge/pain or vision changes. RESP: Negative for cough/hemoptysis and shortness of breath. CV: Negative chest pain, difficulty breathing, palpitations. ABD: Negative pain, nausea, vomiting. : Negative increase frequency, dysuria, blood in urine or stool. MUSC: Negative for muscle aches, edema. SKIN: Negative rash, lesions/sores. NEURO: Negative headache, dizziness, weakness. Physical Exam Physical Exam: GENERAL APPEARANCE NAD, activity normal for age, well developed/ well nourished, no cyanosis, pallor, or diaphoresis. EYES lids/conjunctiva normal. EARS/NOSE/THROAT Mucous membranes moist, nares normal, lips/teeth normal uvula midline without oral pharyngeal erythema, exudate or swelling TMs normal bilaterally. No lymphangitis/lymphedema. HEAD/NECK normocephalic atraumatic, no facial trauma, neck is supple. RESPIRATORY respiratory effort normal, speaks in full sentences, no tripod position, no accessory muscle use. Lungs clear to auscultation without rhonchi, wheezes, rales CARDIAC Regular rate and rhythm, no edema. ABDOMINAL Soft, ND/NT. No evidence of fluid wave. No pulsatile masses on exam, rebound tenderness, Lopez sign or pain over Mcburney's point. MUSCLES/EXTREMITIES No abnormal range of motion, no swelling. SKIN Warm, pink and dry. No rashes, dermatoses, petechiae or lesions. NEUROLOGICAL Speech is clear and appropriate. Normal level of consciousness. Gait and coordination are normal. 5/5 strength in all extremities. PSYCH Normal mood and affect. Judgement/competence is appropriate Results & Data Results & Data Vital Signs (Past 12 Hours) Vital Signs Temp Pulse Pulse Pulse Resp BP Pulse Ox 04/19/24 07:52 74 04/19/24 07:39 36.3 C L 76 20 193/75 H 97 04/19/24 07:27 86 16 94 04/19/24 05:58 04/19/24 02:47 36.7 C 76 22 172/70 H 94 04/18/24 22:58 36.7 C 76 19 178/66 H 91 O2 Del Method O2 Del Method 04/19/24 07:52 04/19/24 07:39 Room Air 04/19/24 07:27 Room Air 04/19/24 05:58 Room Air 04/19/24 02:47 Room Air 04/18/24 22:58 Room Air PG Care Time/CCT Total # of Minutes Spent Total Time Spent with Patient: Total time spent is greater than 50% in coordination of care (as documented) at patient's floor/unit and/or counseling patient: Coding Level of Care Code 25361 SUB INP/OBS CARE 235MIN Diagnoses Sepsis A41.9 Sepsis acute organ dysfunction status: without acute organ dysfunction Sepsis type: sepsis due to unspecified organism Influenza A J10.1 RLL pneumonia J18.9 ESRD (end stage renal disease) on dialysis N18.6; Z99.2 Diabetes mellitus with hyperglycemia E11.65 Anemia D64.9 Anemia type: unspecified type GERD (gastroesophageal reflux disease) K21.9 Hypertension I10 Depression F32.A (1) Sepsis Sepsis acute organ dysfunction status: without acute organ dysfunction Sepsis type: sepsis due to unspecified organism Qualified Code(s): A41.9 - Sepsis, unspecified organism (6) Anemia Anemia type: unspecified type Qualified Code(s): D64.9 - Anemia, unspecified
--- NOTE | 2024-04-19 10:25 | Nephrology Progress Note ---
Date of Service April 19, 2024 Assessment & Plan (1) ESRD (end stage renal disease) on dialysis: (2) Anemia: (3) Right lower lobe pneumonia: (4) Influenza A: Plan ESRD secondary to diabetic nephropathy, has been on dialysis Thursday, , Thursday via left brachiocephalic AV fistula, dialysis at [facility] dialysis center at [place]. Had last dialysis Thursday as his regular schedule, was uneventful. Currently electrolyte, blood pressure, volume status acceptable. A dmitted with more than 1 week history of cough and fever and found to be positive for influenza A and right lower lobe pneumonia. Started empirically on azithromycin and cefepime. Hemoglobin is 10.6 Clinically doing better, electrolyte, volume status acceptable. Fever resolved, continue antibiotic. --HD tomorrow --epogen 23563 units x 1 dose given on 04/18/24 --Left arm nephrology precaution, dose medication for eGFR less than 10. --Continue Nephrocaps. Admission and Anticipated Discharge Date Admission Date: April 17, 2024 Subjective Librado was seen and evaluated this morning. He reports overall feeling slightly better but continues to have some cough. No fever or chills. Blood pressure fair, electrolyte acceptable. Review of Systems Review of Systems: Detailed review of system was done and pertinent positives and negatives are mentioned above. Physical Exam Constitutional: WD/WN, vitals as above + ill appearing; no acute distress Eyes: + anicteric sclerae Respiratory: + cough Auscultation: + diminished lashell ng sounds and + crackles Cardiovascular: RRR, no murmur, no edema Extremities: + AV fistula (L BC AVF with thrill and bruit) Musculoskeletal: Extremities: extremities normal to inspection Skin: no rashes, warm and dry Neurologic: no focal motor deficits Psychiatric: Orientation: alert and oriented x 3 Affect: euthymic affect Results & Data Vital Signs (Past 12 Hours) Vital Signs Temp Pulse Pulse Pulse Resp BP Pulse Ox 04/19/24 10:16 36.9 C 71 18 133/67 93 04/19/24 07:52 74 04/19/24 07:39 36.3 C L 76 20 193/75 H 97 04/19/24 07:27 86 16 94 04/19/24 05:58 04/19/24 02:47 36.7 C 76 22 172/70 H 94 04/18/24 22:58 36.7 C 76 19 178/66 H 91 O2 Del Method O2 Del Method 04/19/24 10:16 Room Air 04/19/24 07:52 04/19/24 07:39 Room Air 04/19/24 07:27 Room Air 04/19/24 05:58 Room Air 04/19/24 02:47 Room Air 04/18/24 22:58 Room Air PG Care Time/CCT Total # of Minutes Spent Total Time Spent with Patient: Total time spent is greater than 50% in coordination of care (as documented) at patient's floor/unit and/or counseling patient: Coding Level of Care Code 64777 SUB INP/OBS CARE 2/35MIN Diagnoses ESRD (end stage renal disease) on dialysis N18.6; Z99.2 Anemia D64.9 Anemia type: unspecified type Right lower lobe pneumonia J18.9 Influenza A J10.1 (2) Anemia Anemia type: unspecified type Qualified Code(s): D64.9 - Anemia, unspecified
[2024-04-20 07:19] VITALS: RESP 18
--- NOTE | 2024-04-20 09:59 | Discharge Summary ---
Discharge Summary Date of Service April 20, 2024 Principal Dx & Hospital Course #1 = Principal Diagnosis (1) Sepsis: 2nd to Influenza A // #RLL pneumonia: T39.2, tachycardic, tachypneic on arrival Procal 1.44 Presumed respiratory source: +Flu A, CXR consistent with RLL pneumonia Blood cultures pending S/P 2L NSS - less than 30cc/kg, additional fluids deferred based on predisposition to volume overload Continue Cefepime, started vancomycin, started azithromycin Start Tamiflu Titrate O2 to maintain SpO2>94% Pulmicort Respules BID, Mucinex, incentive spirometry Droplet precautions (2) Influenza A: Tamiflu (3) RLL pneumonia: Cefepime,vancomycin, azithromycin (4) ESRD (end stage renal disease) on dialysis: HD as per renal (5) Diabetes mellitus with hyperglycemia: BSG checks ACHS (6) Anemia: monitor h/h (7) GERD (gastroesophageal reflux disease): Continue (8) Hypertension: Carvedilol held d/t relative hypote (9) Depression: Continue Sertraline Plan 68 y/o male with h/o that includes ESRD on hemodialysis, anemia, GERD, depression, HTN, T2DM presenting with cough and fever: Plan to d/c home 04/20 on oral abx. Admission HPI Per Admitting Provider 68 y/o male with h/o that includes ESRD on hemodialysis, anemia, GERD, depression, HTN, T2DM presenting with cough and fever. Cough x3 days, fever started today. Patient with URI in late March, s/p treatment with Doxy x10 days. Patient notes that sx never fully cleared prior to acute worsening 3 days ago. At present, denies chest pain, shortness of breath, fevers/chills. ED Course: T39.2, tachycardic, tachypneic on arrival +Flu A CXR consistent with RLL pneumonia S/P 2L NSS S/P [id number] Discharge Exam GENERAL APPEARANCE NAD, activity normal for age, well developed/ well nourished, no cyanosis, pallor, or diaphoresis. EYES lids/conjunctiva normal. EARS/NOSE/THROAT Mucous membranes moist, nares normal, lips/teeth normal uvula midline without oral pharyngeal erythema, exudate or swelling TMs normal bilaterally. No lymphangitis/lymphedema. HEAD/NECK normocephalic atraumatic, no facial trauma, neck is supple. RESPIRATORY respiratory effort normal, speaks in full sentences, no tripod position, no accessory muscle use. Lungs clear to auscultation without rhonchi, wheezes, rales CARDIAC Regular rate and rhythm, no edema. ABDOMINAL Soft, ND/NT. No evidence of fluid wave. No pulsatile masses on exam, rebound tenderness, Lopez sign or pain over Mcburney's point. MUSCLES/EXTREMITIES No abnormal range of motion, no swelling. SKIN Warm, pink and dry. No rashes, dermatoses, petechiae or lesions. NEUROLOGICAL Speech is clear and appropriate. Normal level of consciousness. Gait and coordination are normal. 5/5 strength in all extremities. PSYCH Normal mood and affect. Judgement/competence is appropriate Discharge Plan Discharge Items Patient Disposition: Home - Self-Care Reason For Visit: COUGH / FEVER Discharge Diagnosis: PNA Activity: Resume your previous activity Non-emergency contact: Primary Care Provider Call non-emergency contact if: you have any medication questions Follow-up/Referrals: Manoj Vasquez DO [Primary Care Provider] - Diet: Carb Consistent or DM2 Addtl Attending Provider Instructions: Follow up with PMD in 2 weeks Pending Studies at Discharge: No Stand-Alone Forms: [employer], Smoking Cessation Medications and DC Order Prescriptions: New azithromycin 250 mg Tablet 500 mg PO QAM Qty: 5 0RF guaifenesin [Mucinex] 600 mg Tablet Extended Release 12hr 600 mg PO Q12 Qty: 30 0RF amoxicillin-pot clavulanate 875-125 mg tablet 1 tab PO BID Qty: 10 0RF Continued (DME) Manual Wheelchair Device See Rx Instructions .Route Qty: 1 0RF Rx Instructions: As directed - with foot rests (DME) HEAVY DUTY WHEEL CHAIR (WITH FOOT RESTS) See Rx Instructions .Route .MEDSUPPLY Qty: 1 0RF Rx Instructions: As directed to aid in patient mobility & transportation Patient weight: 260 lbs Patient Height: 5 ft 6 in (DME) OneTouch Verio test strips Strip See Rx Instructions .Route Qty: 50 11RF Rx Instructions: Test once daily & as needed E11.65 (DME) pen needle, diabetic [BD Ultra-Fine Short Pen Needle] 31 gauge x 5/16" needle See Rx Instructions .Route Qty: 100 4RF Rx Instructions: As directed (DME) pen needle, diabetic, safety 30 gauge x 3/16" needle See Rx Instructions .Route Qty: 100 4RF Rx Instructions: as directed - daily once lactulose 10 gram/15 mL (15 mL) solution 10 g PO DAILY PRN (Reason: constipation) Qty: 600 2RF tramadol 50 mg tablet 50 mg PO BID PRN (Reason: pain) Qty: 30 0RF mupirocin 2 % ointment 1 applic topical BID Qty: 15 0RF Rx Instructions: apply small amount to open area on the abdomen twice daily Velphoro 500 mg tablet,chewable 500 mg PO TID carvedilol 6.25 mg tablet 6.25 mg PO DIRECTED Qty: 100 3RF Rx Instructions: give 1 tablet 2 times a day every thu,,sat,sun hold for <SBP 100 or HR<60 omeprazole 20 mg capsule,delayed release(DR/EC) 20 mg PO DAILY Qty: 90 3RF Glucagon Emergency Kit (human) 1 mg recon soln See Rx Instructions IM .COMPLEX Rx Instructions: intramuscularly PRN NEEDED FOR HYPOGLYCEMIA BLOOD GLUCOSE <60 AND SYMPTOMATIC/UNRESPONSIVE. MAY REPEAT IN 15 MINUTES IF NEEDED.; (DME) lancing device with lancets [Epunchit Lanc Device] Kit See Rx Instructions .Route Qty: 1 0RF Rx Instructions: Test once daily & as needed (DME) lancets [OneTouch Delica Lancets] 33 gauge misc See Rx Instructions .Route Qty: 100 6RF Rx Instructions: Test once daily and as directed cetirizine 10 mg tablet 10 mg PO DAILY Qty: 90 3RF insulin glargine [Lantus Solostar U-100 Insulin] 100 unit/mL (3 mL) insulin pen 6 unit SC QAM Qty: 15 5RF rosuvastatin 10 mg tablet 10 mg PO HS Qty: 90 3RF sertraline [Zoloft] 50 mg tablet 50 mg PO DAILY Qty: 90 3RF (DME) Power Wheelchair Device See Rx Instructions .Route Qty: 1 0RF Rx Instructions: As directed ergocalciferol (vitamin D2) [Vitamin D2] 1,250 mcg (50,000 unit) capsule 1,250 mcg PO WK Rx Instructions: Discontinued doxycycline hyclate 100 mg capsule 100 mg PO BID Qty: 20 0RF Discharge Orders: Discharge Order (Routine); Ordered 04/20/24 Ordered By: Celestine Magdaleno Admission Data Admit Date/Time: 04/17/24 04:46 Attending Provider: Celestine Magdaleno Admit Provider: Francesco Ernandez Primary Care Provider: Manoj Vasquez Other Providers: Jani Bryant; Aquilino Miller; Anthony Pinon Kevin C.; Bernice Plunkett Hospital Stay Data Consultations 04/17/24 03:35 ED Decision to Admit Stat 04/17/24 05:15 Consult Nephrology Routine Pending Results Patient Have Any Pending Studies at Discharge: No Discharge Instructions Given to Patient (Per Discharging Provider) Follow up with PMD in 2 weeks Total Time Total Time Spent Total Time Spent (In Minutes): 50 Coding Level of Care Code 73315 INP/OBS DISCH >30 MIN Diagnoses Sepsis A41.9 Sepsis acute organ dysfunction status: without acute organ dysfunction Sepsis type: sepsis due to unspecified organism Influenza A J10.1 RLL pneumonia J18.9 ESRD (end stage renal disease) on dialysis N18.6; Z99.2 Diabetes mellitus with hyperglycemia E11.65 Anemia D64.9 Anemia type: unspecified type GERD (gastroesophageal reflux disease) K21.9 Hypertension I10 Depression F32.A
--- NOTE | 2024-04-20 10:15 | Nephrology Progress Note ---
Date of Service April 20, 2024 Assessment & Plan (1) ESRD (end stage renal disease) on dialysis: (2) Anemia: (3) Right lower lobe pneumonia: (4) Influenza A: Plan ESRD secondary to diabetic nephropathy, has been on dialysis Thursday, , Thursday via left brachiocephalic AV fistula, dialysis at [facility] dialysis center at [place]. Had last dialysis Thursday as his regular schedule, was uneventful. Currently electrolyte, blood pressure, volume status acceptable. A dmitted with more than 1 week history of cough and fever and found to be positive for influenza A and right lower lobe pneumonia. Started empirically on azithromycin and cefepime. Clinically doing better, electrolyte, volume status acceptable. Fever resolved, continue antibiotic. Hemoglobin stable, epogen 96692 units x 1 dose given on 04/18/24 --tolerating HD now --if discharge anticipated later today, he will have next dialysis Thursday with outpatient unit. --Left arm nephrology precaution, dose medication for eGFR less than 10. --Continue Nephrocaps. Admission and Anticipated Discharge Date Admission Date: April 17, 2024 Subjective Librado was seen and evaluated during hemodialysis this morning. He reports overall feeling better. No fever or chills. Blood pressure fair, electrolyte acceptable. Tolerating HD. Review of Systems Review of Systems: Detailed review of system was done and pertinent positives and negatives are mentioned above. Physical Exam Constitutional: WD/WN, vitals as above + obese; no acute distress Eyes: + anicteric sclerae Respiratory: Auscultation: + diminished lung sounds and + crackles Cardiovascular: RRR, no murmur, no edema Extremities: + AV fistula (L BC AVF with thrill and bruit) Musculoskeletal: Extremities: extremities normal to inspection Skin: no rashes, warm and dry Neurologic: no focal motor deficits Psychiatric: Orientation: alert and oriented x 3 Affect: euthymic affect Results & Data Vital Signs (Past 12 Hours) Vital Signs Temp Pulse Pulse Pulse Resp BP BP 04/20/24 09:30 67 135/68 04/20/24 09:21 66 150/69 H 04/20/24 09:14 36.7 C 69 04/20/24 07:43 36.8 C 68 18 176/70 H 04/20/24 07:19 65 18 04/20/24 02:42 36.7 C 66 20 166/80 H 04/19/24 22:59 36.7 C 101 H 20 150/77 H Pulse Ox O2 Del Method 04/20/24 09:30 04/20/24 09:21 04/20/24 09:14 04/20/24 07:43 96 Room Air 04/20/24 07:19 98 Room Air 04/20/24 02:42 96 Room Air 04/19/24 22:59 95 Room Air PG Care Time/CCT Total # of Minutes Spent Total Time Spent with Patient: Total time spent is greater than 50% in coordination of care (as documented) at patient's floor/unit and/or counseling patient: Coding Level of Care Code 51446 SUB INP/OBS CARE 235MIN Diagnoses ESRD (end stage renal disease) on dialysis N18.6; Z99.2 Anemia D64.9 Anemia type: unspecified type Right lower lobe pneumonia J18.9 Influenza A J10.1 (2) Anemia Anemia type: unspecified type Qualified Code(s): D64.9 - Anemia, unspecified
[2024-04-20 13:56] VITALS: BP 171/68; TEMP 98.2; O2SAT 93
[2024-04-20 16:04] VITALS: PULSE 74
== END 2024-04-20 16:03 | disposition home or self-care (01) | DRG 871 ==
LOC: SUATTDRO → ED 01:47 → EDINP 04:46 → SUATTDRO 04:46 → 2S 05:15

== ENCOUNTER 2024-04-30 17:51 | Inpatient (IN) ==
[2024-04-30 18:37] LABS: Basophils # (auto) 0.03 K/uL (0.00-0.20); Basophils % (auto) 0.3 %; Eosinophils # (auto) 0.08 K/uL (0.00-0.50); Eosinophils % (auto) 0.9 %; Hematocrit (blood only) 28.5 % (42.0-52.0); Hemoglobin 9.5 g/dl (14.0-18.0); Immature Granulocytes # (auto) 0.04 K/uL (0.01-0.20); Immature Granulocytes % (auto) 0.4 %; Lymphocytes # (auto) 1.23 K/uL (1.20-3.40); Lymphocytes % (auto) 13.5 %; Mean Corpuscular Hemoglobin 29.1 pg (25.0-34.0); Mean Corpuscular Hgb Conc 33.3 g/dL (32.0-36.0); Mean Corpuscular Volume 87.4 fL (80.0-100.0); Mean Platelet Volume 10.1 fL (9.4-12.4); Monocytes # (auto) 0.88 K/uL (0.11-0.59); Monocytes % (auto) 9.6 %; Neutrophils # (auto) 6.88 K/uL (1.40-6.50); Neutrophils % (auto) 75.3 %; Platelet Count 162 K/uL (130-400); RDW Coefficient of Variation 13.7 % (11.5-14.5); RDW Standard Deviation 43.7 fL (36.4-46.3); Red Blood Count 3.26 M/uL (4.70-6.10); White Blood Count 9.14 K/ul (4.8-10.8)
--- NOTE | 2024-04-30 18:44 | XRay Report ---
HISTORY: Chest pain. TECHNIQUE: Portable AP radiograph of the chest COMPARISON: Chest radiograph dated 04/17/2024. FINDINGS: Cardiomegaly. Pulmonary vascular congestion. Small pleural effusions. Mild left basilar/retrocardiac opacity. No pneumothorax. Left-sided aortic arch. Midline trachea. No acute osseous abnormality. Included upper abdomen is unremarkable. IMPRESSION: 1. No significant interval change. 2. Mild left lung base/retrocardiac opacity, which could reflect atelectasis or pneumonia. 3. Cardiomegaly with mild vascular congestion and small pleural effusions suggesting CHF. Electronically signed by Charlie Rowe 04-30-2024 6:44 PM
--- NOTE | 2024-04-30 18:57 | Emergency Department Note ---
Impression & Plan Pneumonia, Shortness of breath, Myalgia ED Provider Note NAME: JYOTI HARRISON AGE: 68 SEX: M : 1955 ARRIVES VIA: Ambulance INFORMANT: Patient, ED PROVIDER(S): Malou Rios MD CHIEF COMPLAINT: Fatigue, joint pain HPI: This is a 68-year-old male presenting for fatigue, joint pain and shortness of breath. Patient states that he feels similar to when he had influenza A and was admitted to the hospital. He states he has had new weakness over the past few days as well as cough, body aches/joint pain. He notes he was so tired he missed dialysis yesterday. He reports some cough and pain when coughing. Otherwise, pleurisy. He has no shortness of breath with ambulation. ROS: See above HPI for pertinent positives & negatives. A total of 10 systems reviewed and were otherwise negative. PAST MEDICAL HISTORY: See Below PAST SURGICAL HISTORY: See Below FAMILY HISTORY: See Below SOCIAL HISTORY: See Below HOME MEDICATIONS: See Below ALLERGIES: See Below VITALS: See Below PHYSICAL EXAMINATION: General: resting comfortably in no acute distress Head: Normocephalic and atraumatic Eyes: Normal inspection, extraocular muscles intact Ear, nose, throat: Normal external exam Neck: Normal range of motion Respiratory: lungs clear to auscultation bilaterally Cardiovascular: Regular rate/rhythm, no murmur GI: soft, nontender, no guarding or rebound Extremities: nontender, moves all extremities Neuro: The patient awake and alert, appropriately conversive, no focal deficits, symmetric faces Skin: Warm, dry, and intact MEDICAL DECISION MAKING: This is a 68-year-old male present for fatigue, joint pain, body aches and shortness of breath. Patient has constellation of upper respiratory symptoms. He has no obvious joint swelling. He does have current cough. He has reassuring vital signs, no hypoxia or tachypnea. No fever at this time. Will do screening blood work, pressure panel, and chest x-ray. -No leukocytosis. Hemoglobin 9.5. -Sodium 134, chloride 92, CO2 33. Creatinine 9.79, consistent with ESRD on hemodialysis. -Chest x-ray reviewed showing mild left lung opacity possible atelectasis versus pneumonia with cardiomegaly/CHF -Patient will be mate admitted d to Dr. Barrow Differential diagnosis: Pneumonia, URI, sepsis Diagnostics interpreted by me: ECG: None Cardiac Monitoring: An order was placed for continuous cardiac monitoring. The monitor shows a rate of 70 with sinus rhythm. Past Med/Surg History Problem List (Updated 05/01/24 @ 01:29 by Malou Rios MD) Myalgia (Acute) Shortness of breath (Acute) Pneumonia (Acute) Hyperuricemia Pneumonia ESRD (end stage renal disease) on dialysis Right lower lobe pneumonia (Acute) Septic shock (Acute) Xerosis cutis Bilateral knee pain Generalized weakness Ambulatory dysfunction Proteinuria Hypoalbuminemia Gout (Chronic) Hypotension (Acute) Leukocytosis (Acute) Dialysis patient (Chronic) Medical History (Updated 05/01/24 @ 01:29 by Malou Rios MD) Influenza A RLL pneumonia Influenza A Depression Hypertension GERD (gastroesophageal reflux disease) Anemia Diabetes mellitus with hyperglycemia Sepsis due to urinary tract infection Acute UTI COVID-19 Osteoarthritis of knees, bilateral Gout of knee Vertigo Elevated troponin I level Hyperbilirubinemia Carpal tunnel syndrome of right wrist Surgical History History of incision and drainage History of appendectomy Family History Mother Cancer Denies family history of Ovarian cancer Prostate cancer Myocardial infarction Breast cancer Colorectal cancer Social History (Updated 03/29/24 @ 14:28 by DENISSE Allen) Smoking Status: Never smoker Second Hand Exposure: No; Do You Dip or Chew Tobacco: No; Hx Alcohol Use: No Hx Substance Use: No Preferred Language: Occitan Communication Ability: Effective 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 Beliefs That Will Affect Care: None marital status: single Current Living Situation: Alone current occupational status: retired Feels Safe at Home: Yes Childhood Exposure to Second-Hand Smoke: No Diet: regular caffeine: Yes Dental Care, Regularly: No Physical Activity Frequency: Does not Exercise Seatbelt Use: always Sunscreen Use: No Assistive Devices: Walker and Wheelchair Allergies Allergies Allergy/AdvReac Type Severity Reaction Status Date / Time atorvastatin [From Lipitor] Allergy Unknown CAN'T Verified 03/29/24 14:20 REMEMBER simvastatin [From Zocor] Allergy Unknown CAN'T Verified 03/29/24 14:20 REMEMBER codeine AdvReac Intermediate Nausea Verified 03/29/24 14:20 Home Meds Home Medications Medication Instructions Recorded Confirmed ergocalciferol (vitamin D2) 1,250 1,250 mcg PO WK 05/19/21 04/17/24 mcg (50,000 unit) capsule (Vitamin D2) glucagon 1 mg solution for See Rx Instructions IM .COMPLEX 10/08/21 04/17/24 injection (Glucagon Emergency Kit) sucroferric oxyhydroxide 500 mg 500 mg PO TID 01/26/24 04/17/24 chewable tablet (Velphoro) Previous Rx's Medication Instructions Recorded lancets 33 gauge (FAD ? [employer]uch [employer] #100 ea 10/08/21 Lancets) lancing device with lancets kit #1 ea 10/08/21 ([employer] Lancing Device kit) Wheelchair (Manual) (Manual #1 ea 09/18/22 Wheelchair) HEAVY DUTY WHEEL CHAIR (WITH FOOT #1 ea 10/08/22 RESTS) blood sugar diagnostic (OneTouch #50 ea 04/30/23 Verio test strips) pen needle, diabetic 31 gauge x #100 ea 05/27/23 5/16" (BD Ultra-Fine Short Pen Needle) pen needle, diabetic, safety 30 #100 ea 06/03/23 gauge x 3/16" lactulose 10 gram/15 mL (15 mL) 10 g (15 mL) PO DAILY PRN 06/29/23 oral solution constipation #600 mL tramadol 50 mg tablet 50 mg PO BID PRN pain #30 tabs 10/16/23 Wheelchair (Powered) (Power #1 ea 11/03/23 Wheelchair) cetirizine 10 mg tablet 10 mg PO DAILY #90 tabs 11/03/23 insulin glargine 100 unit/mL (3 6 unit (0.06 mL) SC QAM #15 mL 11/03/23 mL) subcutaneous pen (Lantus Solostar U-100 Insulin) rosuvastatin 10 mg tablet 10 mg PO HS #90 tabs 11/03/23 sertraline 50 mg tablet (Zoloft) 50 mg PO DAILY #90 tabs 11/03/23 mupirocin 2 % topical ointment 1 applic topical BID #15 grams 12/11/23 carvedilol 6.25 mg tablet 6.25 mg PO DIRECTED #100 tabs 01/11/25 omeprazole 20 mg capsule,delayed 20 mg PO DAILY #90 caps 03/25/24 release amoxicillin 500 mg-potassium 1 tab PO BID #10 tabs 04/20/24 clavulanate 125 mg tablet (Augmentin) azithromycin 250 mg tablet 500 mg (2 x 250 mg) PO QAM #5 tabs 04/20/24 guaifenesin 600 mg tablet, 600 mg PO Q12 #30 tabs 04/20/24 extended release 12 hr (Mucinex) Results & Data (ED) Vital Signs Vital Signs - 24 hr 04/30/24 18:01 04/30/24 18:03 04/30/24 18:05 Temperature 37.3 C Temperature Source Oral Pulse Rate 84 80 Pulse Rate from SpO2 Sensor Respiratory Rate 13 Blood Pressure 168/78 H 168/78 H Blood Pressure Mean 103 108 Pulse Oximetry 98 Oxygen Delivery Method Room Air Sepsis New/Unexplained Change in Mental Status No Sepsis Action Taken by Nursing No Action Required 04/30/24 18:06 04/30/24 18:42 04/30/24 18:47 Temperature Temperature Source Pulse Rate 78 81 Pulse Rate from SpO2 Sensor 78 Respiratory Rate 26 H 23 Blood Pressure 177/80 H Blood Pressure Mean 112 Pulse Oximetry 98 94 Oxygen Delivery Method Room Air Sepsis New/Unexplained Change in Mental Status Sepsis Action Taken by Nursing Laboratory Data 04/30/24 18:05 04/30/24 18:05 Lab Results 04/30/24 04/30/24 Range/Units 18:05 18:45 WBC 9.14 (4.8-10.8) K/ul RBC 3.26 L (4.70-6.10) M/uL Hgb 9.5 L (14.0-18.0) g/dl Hct 28.5 L (42.0-52.0) % MCV 87.4 (80.0-100.0) fL MCH 29.1 (25.0-34.0) pg MCHC 33.3 (32.0-36.0) g/dL RDW Std Deviation 43.7 (36.4-46.3) fL RDW Coeff of Inderjit 13.7 (11.5-14.5) % Plt Count 162 (130-400) K/uL MPV 10.1 (9.4-12.4) fL Immature Gran % (Auto) 0.4 % Neut % (Auto) 75.3 % Lymph % (Auto) 13.5 % [place] % (Auto) 9.6 % Eos % (Auto) 0.9 % Baso % (Auto) 0.3 % Neut # (Auto) 6.88 H (1.40-6.50) K/uL Lymph # (Auto) 1.23 (1.20-3.40) K/uL [place] # (Auto) 0.88 H (0.11-0.59) K/uL Eos # (Auto) 0.08 (0.00-0.50) K/uL Baso # (Auto) 0.03 (0.00-0.20) K/uL Immature Gran # (Auto) 0.04 (0.01-0.20) K/uL Sodium 134 L (136-145) mmol/L Potassium 3.8 (3.5-5.1) mmol/L Chloride 92 L (98-107) mmol/L Carbon Dioxide 33 H (21-32) mmol/L Anion Gap 9 (3-11) BUN 43 H (6-23) mg/dl Creatinine 9.79 H* (0.6-1.4) mg/dl Est Cr Clr Drug Dosing 9.5 ml/min eGFR 5.37 BUN/Creatinine Ratio 4.4 L (10-20) Glucose 144 H (70-99(Fasting)) mg/dl Uric Acid 7.6 H (2.6-7.2) mg/dl Calcium 9.2 (8.6-10.3) mg/dl Total Bilirubin 1.0 (0.2-1.0) mg/dl AST 17 (13-39) U/L ALT 14 (7-52) U/L Alkaline Phosphatase 144 H (34-104) U/L Total Protein 6.9 (6.0-8.3) gm/dl Albumin 3.5 (3.4-5.0) gm/dl Globulin 3.4 (2.5-4.0) gm/dl Albumin/Globulin Ratio 1.0 (0.9-2) Adenovirus (PCR) Not Detected (NotDetected) B. pertussis DNA (PCR) Not Detected (NotDetected) B.parapertussis DNA PCR Not Detected (NotDetected) C. pneumoniae DNA (PCR) Not Detected (NotDetected) Coronavirus OC43 (PCR) Not Detected (NotDetected) Coronavirus HKU1 (PCR) Not Detected (NotDetected) Coronavirus 229E (PCR) Not Detected (NotDetected) SARS-CoV-2 (PCR) Not Detected (NotDetected) Coronavirus NL63 (PCR) Not Detected (NotDetected) Human Metapneumovir PCR Not Detected (NotDetected) Influenza Type A (PCR) Not Detected (NotDetected) Influenza Type B (PCR) Not Detected (NotDetected) M. pneumoniae (PCR) Not Detected (NotDetected) Parainfluenza 1 (PCR) Not Detected (NotDetected) Parainfluenza 2 (PCR) Not Detected (NotDetected) Parainfluenza 3 (PCR) Not Detected (NotDetected) Parainfluenza 4 (PCR) Not Detected (NotDetected) RSV (PCR) Not Detected (NotDetected) Entero/Rhino (PCR) Not Detected (NotDetected) Administered Medications Carvedilol (Carvedilol 6.25 Mg Tab) 6.25 mg PO BID ELENI Stop: 05/30/24 22:22 Last Admin: 05/01/24 00:23 Dose: 6.25 mg Documented By: SHAWN Guaifenesin (Guaifenesin 600 Mg Tabcr) 600 mg PO Q12 ELENI Stop: 05/30/24 22:22 Last Admin: 05/01/24 00:23 Dose: 600 mg Documented By: SHAWN Insulin Aspart (Insulin Aspart Per Unit Charge) 0 units SC ACHS ELENI Stop: 05/30/24 22:22 Last Admin: 05/01/24 00:23 Dose: Not Given Documented By: SHAWN Miscellaneous (Sucroferric Oxyhydroxide [Velphoro] 500 Mg - Order Awaiting Action) 1 each N/A QS ELENI Stop: 05/31/24 00:00 Last Admin: 05/01/24 00:51 Dose: Not Given Documented By: SHAWN Rosuvastatin Calcium (Rosuvastatin Calcium 10 Mg Tab) 10 mg PO HS ELENI Stop: 05/30/24 22:22 Last Admin: 05/01/24 00:23 Dose: 10 mg Documented By: SHAWN Discontinued Medications Carvedilol (Carvedilol 6.25 Mg Tab) 6.25 mg PO NOW ONE Stop: 04/30/24 20:44 Last Admin: 04/30/24 21:30 Dose: 6.25 mg Documented By: JASON Colchicine (Colchicine 0.6 Mg Tab) 0.6 mg PO NOW ONE Stop: 04/30/24 20:07 Last Admin: 04/30/24 20:31 Dose: 0.6 mg Documented By: JASON Doxycycline Hyclate 100 mg/ (Dextrose) 100 mls @ 50 mls/hr IV NOW STA Stop: 04/30/24 23:04 Last Infusion: 05/01/24 00:31 Dose: Infused Documented By: Admin: 04/30/24 21:30 Dose: 50 mls/hr Documented By: JASON Methylprednisolone (Methylprednisolone 125 Mg/2 Ml Vial) 60 mg IV NOW STA Stop: 04/30/24 20:07 Last Admin: 04/30/24 20:31 Dose: 60 mg Documented By: JASON Methylprednisolone (Methylprednisolone 10 Mg/Ml (For Ped Dose < 7mg)) 40 mg IV Q12H ELENI Stop: 05/30/24 20:14 Last Admin: 04/30/24 20:35 Dose: Not Given Documented By: JASON Imaging Data Radiologist's Impression: Chest X-Ray 04/30/24 18:14 HISTORY: Chest pain. TECHNIQUE: Portable AP radiograph of the chest COMPARISON: Chest radiograph dated 04/17/2024. FINDINGS: Cardiomegaly. Pulmonary vascular congestion. Small pleural effusions. Mild left basilar/retrocardiac opacity. No pneumothorax. Left-sided aortic arch. Midline trachea. No acute osseous abnormality. Included upper abdomen is unremarkable. IMPRESSION: 1. No significant interval change. 2. Mild left lung base/retrocardiac opacity, which could reflect atelectasis or pneumonia. 3. Cardiomegaly with mild vascular congestion and small pleural effusions suggesting CHF. Electronically signed by Charlie Rowe 04-30-2024 6:44 PM Discharge Plan Visit Data Chief Complaint: Flu Like Symptoms Stated Complaint: FLU SX ED Provider: Malou Rios Discharge Problem: Pneumonia, Shortness of breath, Myalgia Patient Disposition: Admitted As Inpatient Discharge Instructions Interventions: ED Discharge Assessment Last Done: 04/30/24 22:02 Discharge Problem: Pneumonia Qualifiers: Pneumonia type: due to unspecified organism Laterality: left Lung location: l ower lobe of lung Qualified Code(s): J18.9 - Pneumonia, unspecified organism
[2024-04-30 19:00] LABS: Albumin Level 3.5 gm/dl (3.4-5.0); BUN Creatinine Ratio 4.4 (10-20); Calcium 9.2 mg/dl (8.6-10.3); Creatinine Clr Calc Pharmacy 9.5 ml/min; Globulin 3.4 gm/dl (2.5-4.0); Potassium 3.8 mmol/L (3.5-5.1); Total Protein 6.9 gm/dl (6.0-8.3)
[2024-04-30 19:59] LABS: Adenovirus PCR Not Detected (NotDetected); Bordetella parapertussis PCR Not Detected (NotDetected); Bordetella pertussis PCR Not Detected (NotDetected); Chlamydia pneumoniae PCR Not Detected (NotDetected); Coronavirus 229E PCR Not Detected (NotDetected); Coronavirus CoV-2 (COVID19)PCR Not Detected (NotDetected); Coronavirus HKU1 PCR Not Detected (NotDetected); Coronavirus NL63 PCR Not Detected (NotDetected); Coronavirus OC43PCR Not Detected (NotDetected); Human Metapneumovirus PCR Not Detected (NotDetected); Influenza A PCR Not Detected (NotDetected); Influenza B PCR Not Detected (NotDetected); Mycoplasma pneumoniae PCR Not Detected (NotDetected); Parainfluenza Virus 1 PCR Not Detected (NotDetected); Parainfluenza Virus 2 PCR Not Detected (NotDetected); Parainfluenza Virus 3 PCR Not Detected (NotDetected); Parainfluenza Virus 4 PCR Not Detected (NotDetected); Respiratory Syncytial VirusPCR Not Detected (NotDetected); Rhinovirus/Enterovirus PCR Not Detected (NotDetected)
[2024-04-30] MEDS: COLCHICINE 0.6 MG TAB PO ONE (20:31)
[2024-04-30] MEDS: methylPREDNISolone 125 MG/2 ML VIAL IV STA (20:31)
[2024-04-30] MEDS: methylPREDNISolone 10 mg/mL (For Ped Dose < 7mg) IV SCH (20:35)
--- NOTE | 2024-04-30 20:51 | History & Physical Report ---
Date of Service April 30, 2024 Assessment & Plan (1) Gout attack: (2) Hyperuricemia: (3) Pneumonia: (4) ESRD (end stage renal disease) on dialysis: Plan The patient is a 68-year-old male with a past medical history including ESRD on HD, history of septic shock, ambulatory dysfunction, proteinuria, gout, hypotension, allergic symptoms, vitamin D deficiency, diabetes mellitus insulin requiring, GERD, anxiety/depression, chronic pain syndrome.The patient presents to the emergency department with complaints of worsening fatigue, joint pain in particular involving left wrist and bilateral ankles, and progressive shortness of breath, however never completely gotten back to normal after admission from 04/17-04/20/2024 for influenza A, and acute respiratory failure with hypoxia. During admission, he had missed previous dialysis due to history of worsening illness as noted. Patient again has missed dialysis yesterday, due to his persistent symptoms. The joint discomfort that is experiencing, is new compared to previous. He denies any recent trauma. [facility]. Of note, he was recently discharged on Augmentin and azithromycin for treatment of close respiratory infection, and during last admission influenza A was treated with Tamiflu. #Acute gout attack/hyperuricemia- Gout involving left hand and wrist, and bilateral ankles- Uric acid level elevated at 7.6 Start colchicine 0.6 mg p.o. twice daily Solu-Medrol 60 mg IV now, and then 40 mg IV every 12 hours Likely secondary to renal issues ESRD on dialysis- Patient typically gets dialysis on Thursday, Thursday and Thursday, having missed dialysis yesterday Thursday Will consult nephrology No indication for acute dialysis this evening Continue usual supportive medications Resolving pneumonia- Chest x-ray overall improved but not completely resolved Doxycycline 100 mg IV every 12 hours Hypertension- Continue carvedilol 6.25 mg p.o. twice daily every day Chronic medical conditions: Diabetes mellitus- Continue glargine 6 units SQ every morning. Placed on Accu-Cheks NovoLog SSI Hyperlipidemia-continue rosuvastatin Anxiety/depression-continue sertraline GERD-Continue omeprazole/pantoprazole Allergic symptoms-continue cetirizine History of Present Illness Chief Complaint: The patient presents to the emergency department with complaints of worsening fatigue, joint pain in particular involving left wrist and bilateral ankles, and progressive shortness of breath, however never completely gotten back to normal after admission from 04/17-04/20/2024 for influenza A, and acute respiratory failure with hypoxia. During admission, he had missed previous dialysis due to history of worsening illness as noted. Patient again has missed dialysis yesterday, due to his persistent symptoms. The joint discomfort that is experiencing, is new compared to previous. He denies any recent trauma. He is referred for evaluation for admission to [facility] service to address all these concerns. Primary Care Provider: Manoj Vasquez DO The patient is a 68-year-old male with a past medical history including ESRD on HD, history of septic shock, ambulatory dysfunction, proteinuria, gout, hypotension, allergic symptoms, vitamin D deficiency, diabetes mellitus insulin requiring, GERD, anxiety/depression, chronic pain syndrome.The patient presents to the emergency department with complaints of worsening fatigue, joint pain in particular involving left wrist and bilateral ankles, and progressive shortness of breath, however never completely gotten back to normal after admission from 04/17-04/20/2024 for influenza A, and acute respiratory failure with hypoxia. During admission, he had missed previous dialysis due to history of worsening illness as noted. Patient again has missed dialysis yesterday, due to his persistent symptoms. The joint discomfort that is experiencing, is new compared to previous. He denies any recent trauma. He is referred for evaluation for admission to [facility] service to address all these concerns. Of note, he was recently discharged on Augmentin and azithromycin for treatment of close respiratory infection, and during last admission influenza A was treated with Tamiflu. Allergies Allergy/AdvReac Type Severity Reaction Status Date / Time atorvastatin [From Lipitor] Allergy Unknown CAN'T Verified 03/29/24 14:20 REMEMBER simvastatin [From Zocor] Allergy Unknown CAN'T Verified 03/29/24 14:20 REMEMBER codeine AdvReac Intermediate Nausea Verified 03/29/24 14:20 Home Medications Medication Instructions Recorded Confirmed Type ergocalciferol (vitamin D2) 1,250 1,250 mcg PO WK 05/19/21 04/17/24 History mcg (50,000 unit) capsule (Vitamin D2) glucagon 1 mg solution for See Rx Instructions IM .COMPLEX 10/08/21 04/17/24 History injection (Glucagon Emergency Kit) lancets 33 gauge (OneTouch Delica #100 ea 10/08/21 04/17/24 Rx Lancets) lancing device with lancets kit #1 ea 10/08/21 04/17/24 Rx ([place] [facility] Lancing Device kit) Wheelchair (Manual) (Manual #1 ea 09/18/22 04/17/24 Rx Wheelchair) HEAVY DUTY WHEEL CHAIR (WITH FOOT #1 ea 10/08/22 04/17/24 Rx RESTS) blood sugar diagnostic (OneTouch #50 ea 04/30/23 04/17/24 Rx Verio test strips) pen needle, diabetic 31 gauge x #100 ea 05/27/23 04/17/24 Rx 5/16" (BD Ultra-Fine Short Pen Needle) pen needle, diabetic, safety 30 #100 ea 06/03/23 04/17/24 Rx gauge x 3/16" lactulose 10 gram/15 mL (15 mL) 10 g (15 mL) PO DAILY PRN 06/29/23 04/17/24 Rx oral solution constipation #600 mL tramadol 50 mg tablet 50 mg PO BID PRN pain #30 tabs 10/16/23 04/17/24 Rx Wheelchair (Powered) (Power #1 ea 11/03/23 04/17/24 Rx Wheelchair) cetirizine 10 mg tablet 10 mg PO DAILY #90 tabs 11/03/23 04/17/24 Rx insulin glargine 100 unit/mL (3 6 unit (0.06 mL) SC QAM #15 mL 11/03/23 04/17/24 Rx mL) subcutaneous pen (Lantus Solostar U-100 Insulin) rosuvastatin 10 mg tablet 10 mg PO HS #90 tabs 11/03/23 04/17/24 Rx sertraline 50 mg tablet (Zoloft) 50 mg PO DAILY #90 tabs 11/03/23 04/17/24 Rx mupirocin 2 % topical ointment 1 applic topical BID #15 grams 12/11/23 04/17/24 Rx sucroferric oxyhydroxide 500 mg 500 mg PO TID 01/26/24 04/17/24 History chewable tablet (Velphoro) carvedilol 6.25 mg tablet 6.25 mg PO DIRECTED #100 tabs 03/12/24 04/17/24 Rx omeprazole 20 mg capsule,delayed 20 mg PO DAILY #90 caps 03/25/24 04/17/24 Rx release amoxicillin 500 mg-potassium 1 tab PO BID #10 tabs 04/20/24 Rx clavulanate 125 mg tablet (Augmentin) azithromycin 250 mg tablet 500 mg (2 x 250 mg) PO QAM #5 tabs 04/20/24 Rx guaifenesin 600 mg tablet, 600 mg PO Q12 #30 tabs 04/20/24 Rx extended release 12 hr (Mucinex) Past Med/Surg History Problem List (Updated 04/30/24 @ 21:54 by Jani Bryant MD) Hyperuricemia Pneumonia ESRD (end stage renal disease) on dialysis Right lower lobe pneumonia (Acute) Septic shock (Acute) Xerosis cutis Bilateral knee pain Generalized weakness Ambulatory dysfunction Proteinuria Hypoalbuminemia Gout (Chronic) Hypotension (Acute) Leukocytosis (Acute) Dialysis patient (Chronic) Medical History (Updated 04/30/24 @ 21:54 by Jani Bryant MD) Influenza A RLL pneumonia Influenza A Depression Hypertension GERD (gastroesophageal reflux disease) Anemia Diabetes mellitus with hyperglycemia Sepsis due to urinary tract infection Acute UTI COVID-19 Osteoarthritis of knees, bilateral Gout of knee Vertigo Elevated troponin I level Hyperbilirubinemia Carpal tunnel syndrome of right wrist Surgical History History of incision and drainage History of appendectomy Family History Mother Cancer Denies family history of Ovarian cancer Prostate cancer Myocardial infarction Breast cancer Colorectal cancer Social History (Updated 03/29/24 @ 14:28 by DENISSE Allen) Smoking Status: Never smoker Second Hand Exposure: No; Do You Dip or Chew Tobacco: No; Hx Alcohol Use: No Hx Substance Use: No Preferred Language: Spanish Communication Ability: Effective Public Health Representative Required: No Beliefs That Will Affect Care: None marital status: single Current Living Situation: Alone current occupational status: retired Feels Safe at Home: Yes Childhood Exposure to Second-Hand Smoke: No Diet: regular caffeine: Yes Dental Care, Regularly: No Physical Activity Frequency: Does not Exercise Seatbelt Use: always Sunscreen Use: No Assistive Devices: Walker and Wheelchair Review of Systems Review of Systems: The patient denies chest pain, palpitations, lower extremity swelling, sore throat, fevers, chills, sweats, weight change, fatigue, nausea, vomiting, diarrhea , constipation, abdominal pain, pelvic pain, blood in urine or stool, dysuria, urinary frequency or urgency, lightheadedness, dizziness, headache, memory loss, loss of consciousness, abnormal bruising or bleeding, The review of systems is otherwise negative other than for that already noted above, and at least 10 systems have been reviewed. Physical Exam Physical Exam: The patient is awake, alert and oriented 3, well developed and well nourished, normocephalic and atraumatic, lying in bed and in no acute distress. HEENT--PERRL, EOMI, mucous membranes and oropharynx dry. Neck--supple. No JVD. No bruits. Thyroid normal, trachea midline, no adenopathy. Heart--normal S1 and S2. No murmurs, rubs or gallops. Lungs--clear bilaterally, no respiratory distress, no accessory muscle use. Abdomen--normal bowel sounds and soft. Nontender. Nondistended, no hernias or masses, no organomegaly. Extremities--no cyanosis or clubbing. No edema. There are good distal pulses b/l. Dermatologic--normal skin turgor, normal color, no abnormal lymph nodes, no rash. Neurologic--cranial nerves II through XII grossly intact. Rheumatologic--left wrist, bilateral ankles with tenderness to light touch, warmth, mild to moderate erythema, mild to moderate swelling. Psychiatric--normal affect. Results & Data Results & Data Vital Signs (Past 12 Hours) Vital Signs Temp Pulse Resp BP Pulse Ox O2 Del Method 04/30/24 18:47 Room Air 04/30/24 18:42 81 23 177/80 H 94 04/30/24 18:06 78 26 H 98 04/30/24 18:05 80 04/30/24 18:03 37.3 C 84 13 168/78 H 98 Room Air 04/30/24 18:01 168/78 H Laboratory Results Laboratory Results WBC 9.14 K/ul (4.8-10.8) 04/30/24 18:05 RBC 3.26 M/uL (4.70-6.10) L 04/30/24 18:05 Hgb 9.5 g/dl (14.0-18.0) L 04/30/24 18:05 Hct 28.5 % (42.0-52.0) L 04/30/24 18:05 MCV 87.4 fL (80.0-100.0) 04/30/24 18:05 MCH 29.1 pg (25.0-34.0) 04/30/24 18:05 MCHC 33.3 g/dL (32.0-36.0) 04/30/24 18:05 RDW Std Deviation 43.7 fL (36.4-46.3) 04/30/24 18:05 RDW Coeff of Inderjit 13.7 % (11.5-14.5) 04/30/24 18:05 Plt Count 162 K/uL (130-400) 04/30/24 18:05 MPV 10.1 fL (9.4-12.4) 04/30/24 18:05 Immature Gran % (Auto) 0.4 % 04/30/24 18:05 Neut % (Auto) 75.3 % 04/30/24 18:05 Lymph % (Auto) 13.5 % 04/30/24 18:05 [place] % (Auto) 9.6 % 04/30/24 18:05 Eos % (Auto) 0.9 % 04/30/24 18:05 Baso % (Auto) 0.3 % 04/30/24 18:05 Neut # (Auto) 6.88 K/uL (1.40-6.50) H 04/30/24 18:05 Lymph # (Auto) 1.23 K/uL (1.20-3.40) 04/30/24 18:05 [place] # (Auto) 0.88 K/uL (0.11-0.59) H 04/30/24 18:05 Eos # (Auto) 0.08 K/uL (0.00-0.50) 04/30/24 18:05 Baso # (Auto) 0.03 K/uL (0.00-0.20) 04/30/24 18:05 Immature Gran # (Auto) 0.04 K/uL (0.01-0.20) 04/30/24 18:05 Sodium 134 mmol/L (136-145) L 04/30/24 18:05 Potassium 3.8 mmol/L (3.5-5.1) 04/30/24 18:05 Chloride 92 mmol/L (98-107) L 04/30/24 18:05 Carbon Dioxide 33 mmol/L (21-32) H 04/30/24 18:05 Anion Gap 9 (3-11) 04/30/24 18:05 BUN 43 mg/dl (6-23) H 04/30/24 18:05 Creatinine 9.79 mg/dl (0.6-1.4) H* 04/30/24 18:05 Est Cr Clr Drug Dosing 9.5 ml/min 04/30/24 18:05 eGFR 5.37 04/30/24 18:05 BUN/Creatinine Ratio 4.4 (10-20) L 04/30/24 18:05 Glucose 144 mg/dl (70-99(Fasting)) H 04/30/24 18:05 Uric Acid 7.6 mg/dl (2.6-7.2) H 04/30/24 18:05 Calcium 9.2 mg/dl (8.6-10.3) 04/30/24 18:05 Total Bilirubin 1.0 mg/dl (0.2-1.0) 04/30/24 18:05 AST 17 U/L (13-39) 04/30/24 18:05 ALT 14 U/L (7-52) 04/30/24 18:05 Alkaline Phosphatase 144 U/L (34-104) H 04/30/24 18:05 Total Protein 6.9 gm/dl (6.0-8.3) 04/30/24 18:05 Albumin 3.5 gm/dl (3.4-5.0) 04/30/24 18:05 Globulin 3.4 gm/dl (2.5-4.0) 04/30/24 18:05 Albumin/Globulin Ratio 1.0 (0.9-2) 04/30/24 18:05 Adenovirus (PCR) Not Detected (NotDetected) 04/30/24 18:45 B. pertussis DNA (PCR) Not Detected (NotDetected) 04/30/24 18:45 B.parapertussis DNA PCR Not Detected (NotDetected) 04/30/24 18:45 C. pneumoniae DNA (PCR) Not Detected (NotDetected) 04/30/24 18:45 Coronavirus OC43 (PCR) Not Detected (NotDetected) 04/30/24 18:45 Coronavirus HKU1 (PCR) Not Detected (NotDetected) 04/30/24 18:45 Coronavirus 229E (PCR) Not Detected (NotDetected) 04/30/24 18:45 SARS-CoV-2 (PCR) Not Detected (NotDetected) 04/30/24 18:45 Coronavirus NL63 (PCR) Not Detected (NotDetected) 04/30/24 18:45 Human Metapneumovir PCR Not Detected (NotDetected) 04/30/24 18:45 Influenza Type A (PCR) Not Detected (NotDetected) 04/30/24 18:45 Influenza Type B (PCR) Not Detected (NotDetected) 04/30/24 18:45 M. pneumoniae (PCR) Not Detected (NotDetected) 04/30/24 18:45 Parainfluenza 1 (PCR) Not Detected (NotDetected) 04/30/24 18:45 Parainfluenza 2 (PCR) Not Detected (NotDetected) 04/30/24 18:45 Parainfluenza 3 (PCR) Not Detected (NotDetected) 04/30/24 18:45 Parainfluenza 4 (PCR) Not Detected (NotDetected) 04/30/24 18:45 RSV (PCR) Not Detected (NotDetected) 04/30/24 18:45 Entero/Rhino (PCR) Not Detected (NotDetected) 04/30/24 18:45 Impressions Chest X-Ray 04/30/24 18:14 HISTORY: Chest pain. TECHNIQUE: Portable AP radiograph of the chest COMPARISON: Chest radiograph dated 04/17/2024. FINDINGS: Cardiomegaly. Pulmonary vascular congestion. Small pleural effusions. Mild left basilar/retrocardiac opacity. No pneumothorax. Left-sided aortic arch. Midline trachea. No acute osseous abnormality. Included upper abdomen is unremarkable. IMPRESSION: 1. No significant interval change. 2. Mild left lung base/retrocardiac opacity, which could reflect atelectasis or pneumonia. 3. Cardiomegaly with mild vascular congestion and small pleural effusions suggesting CHF. Electronically signed by Charlie Rowe 04-30-2024 6:44 PM Code Status & VTE Plan Code Status Full code VTE Prophylaxis Plan VTE Prophylaxis will be ordered: Yes PG Care Time/CCT Total # of Minutes Spent Total Time Spent with Patient: Total time spent is greater than 50% in coordination of care (as documented) at patient's floor/unit and/or counseling patient: Coding Level of Care Code 06683 INT INP/OBS CARE 375MIN Diagnoses Gout attack M10.9 Gout etiology: unspecified cause Gout site: multiple sites Hyperuricemia E79.0 Pneumonia J18.9 ESRD (end stage renal disease) on dialysis N18.6; Z99.2 (1) Gout attack Gout etiology: unspecified cause Gout site: multiple sites Qualified Code(s): M10.9 - Gout, unspecified
[2024-04-30] MEDS ORDERED: COLCHICINE 0.6 MG TAB PO SCH (21:00)
[2024-04-30 21:09] LABS: Uric Acid 7.6 mg/dl (2.6-7.2)
[2024-04-30] MEDS: DOXYCYCLINE HYCLATE 100 MG in DEXTROSE 5% MINI-B 100 ML IV STA (21:30)
[2024-04-30] MEDS: carvediloL 6.25 MG TAB PO ONE (21:30)
[2024-04-30] MEDS ORDERED: traMADol HCL 50 MG TABLET PO PRN (22:23)
[2024-04-30] MEDS ORDERED: PHARMACY GLYCEMIC MGMT CONSULT PRN (22:23)
[2024-04-30] MEDS ORDERED: GLUCOSE 40% GEL 15 GM TUBE PO PRN (22:23)
[2024-04-30] MEDS ORDERED: GLUCOSE 10 TAB/TUBE PO PRN (22:23)
[2024-04-30] MEDS ORDERED: GLUCAGON FOR INJ 1 MG VIAL SQ PRN (22:23)
[2024-04-30] MEDS ORDERED: DEXTROSE 50% 50 ML SYRINGE IV PRN (22:23)
[2024-04-30] MEDS ORDERED: CARBOHYDRATES FOR HYPOGLYCEMIA PO PRN (22:23)
[2024-05-01] MEDS: ROSUVASTATIN CALCIUM 10 MG TAB PO SCH (00:23)
[2024-05-01] MEDS: guaiFENesin 600 MG TABCR PO SCH (00:23)
[2024-05-01] MEDS: INSULIN ASPART PER UNIT CHARGE SC SCH (00:23)
[2024-05-01] MEDS: carvediloL 6.25 MG TAB PO SCH (00:23)
[2024-05-01] MEDS ORDERED: methylPREDNISolone 10 mg/mL (For Ped Dose < 7mg) IV SCH (08:00)
[2024-05-01 08:01] LABS: Basophils # (auto) 0.01 K/uL (0.00-0.20); Basophils % (auto) 0.1 %; Hematocrit (blood only) 27.7 % (42.0-52.0); Hemoglobin 9.2 g/dl (14.0-18.0); Immature Granulocytes # (auto) 0.06 K/uL (0.01-0.20); Immature Granulocytes % (auto) 0.7 %; Lymphocytes # (auto) 0.74 K/uL (1.20-3.40); Lymphocytes % (auto) 8.4 %; Mean Corpuscular Hemoglobin 29.7 pg (25.0-34.0); Mean Corpuscular Hgb Conc 33.2 g/dL (32.0-36.0); Mean Corpuscular Volume 89.4 fL (80.0-100.0); Mean Platelet Volume 10.5 fL (9.4-12.4); Monocytes # (auto) 0.17 K/uL (0.11-0.59); Monocytes % (auto) 1.9 %; Neutrophils # (auto) 7.87 K/uL (1.40-6.50); Neutrophils % (auto) 88.9 %; Platelet Count 163 K/uL (130-400); RDW Coefficient of Variation 13.5 % (11.5-14.5); RDW Standard Deviation 44.2 fL (36.4-46.3); White Blood Count 8.85 K/ul (4.8-10.8)
[2024-05-01] MEDS: ACETAMINOPHEN 325 MG TAB PO PRN (08:27)
[2024-05-01 08:28] LABS: Albumin Globulin Ratio 0.9 (0.9-2); Albumin Level 3.4 gm/dl (3.4-5.0); BUN Creatinine Ratio 5.2 (10-20); Bilirubin,Total 0.8 mg/dl (0.2-1.0); Calcium 8.4 mg/dl (8.6-10.3); Globulin 3.7 gm/dl (2.5-4.0); Magnesium 1.7 mg/dl (1.7-2.4); Phosphorus 3.4 mg/dl (2.5-4.9); Potassium 4.3 mmol/L (3.5-5.1); Total Protein 7.1 gm/dl (6.0-8.3)
[2024-05-01] MEDS: methylPREDNISolone 40 MG in SYRINGE 0 ML IV SCH (08:28)
[2024-05-01] MEDS: DOXYCYCLINE HYCLATE 100 MG in DEXTROSE 5% MINI-B 100 ML IV SCH (08:29)
[2024-05-01] MEDS: LACTULOSE SYRUP 10 GM/15 ML BTL 960 ML PO PRN (08:32)
[2024-05-01] MEDS: SERTRALINE HCL 50 MG TABLET PO SCH (08:33)
[2024-05-01] MEDS: PANTOprazole 40 MG TAB PO SCH (08:33)
[2024-05-01] MEDS: CETIRIZINE HCL 10 MG TABLET PO SCH (08:33)
[2024-05-01] MEDS: COLCHICINE 0.6 MG TAB PO SCH (08:33)
[2024-05-01 08:34] LABS: Partial Thromboplastin Ratio 1.1; Partial Thromboplastin Time 30 Seconds (21-31); Prothrombin Time 11.1 Seconds (9.0-12.0)
[2024-05-01] MEDS ORDERED: AZITHROMYCIN 500 MG VIAL IV SCH (09:00)
[2024-05-01] MEDS ORDERED: LANTUS PER UNIT CHARGE SC SCH (09:00)
[2024-05-01] MEDS: LANTUS PER UNIT CHARGE SC ONE (09:09)
--- NOTE | 2024-05-01 11:16 | Nephrology Consultation ---
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 Will schedule HD for Thursday am * Nephrocaps daily * DM/HD diet * Monitor BMP (2) Pneumonia: * Recent influenza infection w/ bacterial pneumonia * Remains on doxycycline (3) Hyperuricemia: * Mild elevation in uric acid * Agree w/ steroid therapy * Recommend stop colchicine due to ESKD * Expect uric acid level to come down following HD. Will monitor History of Present Illness Reason for Consultation: ESKD-D Attending Physician: Monica Hines MD History of Present Illness Mr. Moon is a 68 year old white male who is seen at the request of the [facility] hospitalist service to provide in-patient HD and assist w/ medical care. Mr. 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 He dialyzes at [facility] (Dr. Marte - MWLauri 4hr 2K 2.5Ca Na 138 HCO3 38 Nipro dialyzed EDW 119kg). He has a functional L BC AVF in place. Mr. Moon was last hospitalized 04/17-04/20 with influenza A. Over the last several days he has experienced severe joint discomfort involving his wrists, elbows and ankles. Mr. Moon missed HD 04/29/24. He presented to [facility] last evening for evaluation of joint pain, weakness. He was diagnosed w/ gout (uric acid 7.6). CXR shows mild pulmonary congestion but patient is 96% SaO2 on RA. Electrolyte balance is acceptable. Primary service has ordered IV methylprednisolone and colchicine. Patient reports that his joint pain is mildly improved this am. PMH: AODM, HTN, TEODORO, hypercholesterolemia, gout, COVID 04/22, lung nodule, GERD, depression Allergies Allergy/AdvReac Type Severity Reaction Status Date / Time atorvastatin [From Lipitor] Allergy Unknown CAN'T Verified 03/29/24 14:20 REMEMBER simvastatin [From Zocor] Allergy Unknown CAN'T Verified 03/29/24 14:20 REMEMBER codeine AdvReac Intermediate Nausea Verified 03/29/24 14:20 Home Medications Medication Instructions Recorded Confirmed Type ergocalciferol (vitamin D2) 1,250 1,250 mcg PO WK 05/19/21 04/17/24 History mcg (50,000 unit) capsule (Vitamin D2) glucagon 1 mg solution for See Rx Instructions IM .COMPLEX 10/08/21 04/17/24 History injection (Glucagon Emergency Kit) lancets 33 gauge (AdaptivityTouch Delica #100 ea 10/08/21 04/17/24 Rx Lancets) lancing device with lancets kit #1 ea 10/08/21 04/17/24 Rx (HowGood DelLinkua Lancing Device kit) Wheelchair (Manual) (Manual #1 ea 09/18/22 04/17/24 Rx Wheelchair) HEAVY DUTY WHEEL CHAIR (WITH FOOT #1 ea 10/08/22 04/17/24 Rx RESTS) blood sugar diagnostic (OneTouch #50 ea 04/30/23 04/17/24 Rx Verio test strips) pen needle, diabetic 31 gauge x #100 ea 05/27/23 04/17/24 Rx 5/16" (BD Ultra-Fine Short Pen Needle) pen needle, diabetic, safety 30 #100 ea 06/03/23 04/17/24 Rx gauge x 3/16" lactulose 10 gram/15 mL (15 mL) 10 g (15 mL) PO DAILY PRN 06/29/23 04/17/24 Rx oral solution constipation #600 mL tramadol 50 mg tablet 50 mg PO BID PRN pain #30 tabs 10/16/23 04/17/24 Rx Wheelchair (Powered) (Power #1 ea 11/03/23 04/17/24 Rx Wheelchair) cetirizine 10 mg tablet 10 mg PO DAILY #90 tabs 11/03/23 04/17/24 Rx insulin glargine 100 unit/mL (3 6 unit (0.06 mL) SC QAM #15 mL 11/03/23 04/17/24 Rx mL) subcutaneous pen (Lantus Solostar U-100 Insulin) rosuvastatin 10 mg tablet 10 mg PO HS #90 tabs 11/03/23 04/17/24 Rx sertraline 50 mg tablet (Zoloft) 50 mg PO DAILY #90 tabs 11/03/23 04/17/24 Rx mupirocin 2 % topical ointment 1 applic topical BID #15 grams 12/11/23 04/17/24 Rx sucroferric oxyhydroxide 500 mg 500 mg PO TID 01/26/24 04/17/24 History chewable tablet (Velphoro) carvedilol 6.25 mg tablet 6.25 mg PO DIRECTED #100 tabs 03/12/24 04/17/24 Rx omeprazole 20 mg capsule,delayed 20 mg PO DAILY #90 caps 03/25/24 04/17/24 Rx release amoxicillin 500 mg-potassium 1 tab PO BID #10 tabs 04/20/24 Rx clavulanate 125 mg tablet (Augmentin) azithromycin 250 mg tablet 500 mg (2 x 250 mg) PO QAM #5 tabs 04/20/24 Rx guaifenesin 600 mg tablet, 600 mg PO Q12 #30 tabs 04/20/24 Rx extended release 12 hr (Mucinex) Patient History Medical History Influenza A RLL pneumonia Influenza A Depression Hypertension GERD (gastroesophageal reflux disease) Anemia Diabetes mellitus with hyperglycemia Sepsis due to urinary tract infection Acute UTI COVID-19 Osteoarthritis of knees, bilateral Gout of knee Vertigo Elevated troponin I level Hyperbilirubinemia Carpal tunnel syndrome of right wrist Surgical History History of incision and drainage History of appendectomy Family History Mother Cancer Denies family history of Ovarian cancer Prostate cancer Myocardial infarction Breast cancer Colorectal cancer Social History Smoking Status: Unknown if ever smoked Second Hand Exposure: No; Do You Dip or Chew Tobacco: No; Hx Alcohol Use: No Hx Substance Use: No Preferred Language: Tunisian Communication Ability: Effective 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 Beliefs That Will Affect Care: None marital status: single Current Living Situation: Alone current occupational status: retired Feels Safe at Home: Yes Childhood Exposure to Second-Hand Smoke: No Diet: regular caffeine: Yes Dental Care, Regularly: No Physical Activity Frequency: Does not Exercise Seatbelt Use: always Sunscreen Use: No Assistive Devices: Walker and Wheelchair Review of Systems Constitutional: no fever Eyes: no problem reported Ear, Nose, Mouth, Throat: no problem reported Respiratory: no cough and no dyspnea Cardiovascular: no chest pain Gastrointestinal: no abdominal pain, no nausea, no vomiting and no diarrhea/loose stools Genitourinary: no dysuria Musculoskeletal: + joint pain Integumentary: no rash Physical Exam Constitutional: no acute distress Eyes: PERRL, conjunctivae normal, anicteric sclerae Neck: trachea midline, no thyromegaly Respiratory: normal respiratory effort, lungs clear to auscultation Cardiovascular: Rate/Rhythm: regular rate and regular rhythm Extremities: no edema AVF + bruit Gastrointestinal (Abdomen): normal bowel sounds, soft, nontender, no hepatosplenomegaly Skin: no rashes, warm and dry Results & Data Vital Signs (Past 12 Hours) Vital Signs Temp Pulse Pulse Resp BP Pulse Ox O2 Del Method 05/01/24 08:00 66 05/01/24 08:00 Room Air 05/01/24 07:54 36.3 C L 62 20 163/71 H 96 Room Air 05/01/24 04:02 36.4 C L 72 18 137/78 97 Room Air Laboratory Results Laboratory Results WBC 8.85 K/ul (4.8-10.8) 05/01/24 07:25 RBC 3.10 M/uL (4.70-6.10) L 05/01/24 07:25 Hgb 9.2 g/dl (14.0-18.0) L 05/01/24 07:25 Hct 27.7 % (42.0-52.0) L 05/01/24 07:25 MCV 89.4 fL (80.0-100.0) 05/01/24 07:25 MCH 29.7 pg (25.0-34.0) 05/01/24 07:25 MCHC 33.2 g/dL (32.0-36.0) 05/01/24 07:25 RDW Std Deviation 44.2 fL (36.4-46.3) 05/01/24 07:25 RDW Coeff of Inderjit 13.5 % (11.5-14.5) 05/01/24 07:25 Plt Count 163 K/uL (130-400) 05/01/24 07:25 MPV 10.5 fL (9.4-12.4) 05/01/24 07:25 Immature Gran % (Auto) 0.7 % 05/01/24 07: Neut % (Auto) 88.9 % 05/01/24 07:25 Lymph % (Auto) 8.4 % 05/01/24 07:25 [place] % (Auto) 1.9 % 05/01/24 07:25 Eos % (Auto) 0.0 % 05/01/24 07:25 Baso % (Auto) 0.1 % 05/01/24:25 Neut # (Auto) 7.87 K/uL (1.40-6.50) H 05/01/24 07:25 Lymph # (Auto) 0.74 K/uL (1.20-3.40) L 05/01/24 07:25 [place] # (Auto) 0.17 K/uL (0.11-0.59) 05/01/24 07:25 Eos # (Auto) 0.00 K/uL (0.00-0.50) 05/01/24 07:25 Baso # (Auto) 0.01 K/uL (0.00-0.20) 05/01/24 07:25 Immature Gran # (Auto) 0.06 K/uL (0.01-0.20) 05/01/24 07:25 PT 11.1 Seconds (9.0-12.0) 05/01/24 07:25 INR 1.0 (0.9-1.1) 05/01/24 07:25 APTT 30 Seconds (21-31) 05/01/24 07:25 PTT Ratio 1.1 05/01/24 07:25 Sodium 129 mmol/L (136-145) L 05/01/24 07:25 Potassium 4.3 mmol/L (3.5-5.1) 05/01/24 07:25 Chloride 89 mmol/L (98-107) L 05/01/24 07:25 Carbon Dioxide 30 mmol/L (21-32) 05/01/24 07:25 Anion Gap 10 (3-11) 05/01/24 07:25 BUN 54 mg/dl (6-23) H 05/01/24 07:25 Creatinine 10.34 mg/dl (0.6-1.4) H* D 05/01/24 07:25 Est Cr Clr Drug Dosing 10.0 ml/min 05/01/24 07:25 eGFR 5.03 05/01/24 07:25 BUN/Creatinine Ratio 5.2 (10-20) L 05/01/24 07:25 Glucose 331 mg/dl (70-99(Fasting)) H* 05/01/24 07:25 POC Glucose 373 mg/dl (70-99) H* 05/01/24 07:52 Uric Acid 7.6 mg/dl (2.6-7.2) H 04/30/24 18:05 Calcium 8.4 mg/dl (8.6-10.3) L 05/01/24 07:25 Phosphorus 3.4 mg/dl (2.5-4.9) 05/01/24 07:25 Magnesium 1.7 mg/dl (1.7-2.4) 05/01/24 07:25 Total Bilirubin 0.8 mg/dl (0.2-1.0) 05/01/24 07:25 AST 19 U/L (13-39) 05/01/24 07:25 ALT 16 U/L (7-52) 05/01/24 07:25 Alkaline Phosphatase 141 U/L (34-104) H 05/01/24 07:25 Total Protein 7.1 gm/dl (6.0-8.3) 05/01/24 07:25 Albumin 3.4 gm/dl (3.4-5.0) 05/01/24 07:25 Globulin 3.7 gm/dl (2.5-4.0) 05/01/24 07:25 Albumin/Globulin Ratio 0.9 (0.9-2) 05/01/24 07:25 Adenovirus (PCR) Not Detected (NotDetected) 04/30/24 18:45 B. pertussis DNA (PCR) Not Detected (NotDetected) 04/30/24 18:45 B.parapertussis DNA PCR Not Detected (NotDetected) 04/30/24 18:45 C. pneumoniae DNA (PCR) Not Detected (NotDetected) 04/30/24 18:45 Coronavirus OC43 (PCR) Not Detected (NotDetected) 04/30/24 18:45 Coronavirus HKU1 (PCR) Not Detected (NotDetected) 04/30/24 18:45 Coronavirus 229E (PCR) Not Detected (NotDetected) 04/30/24 18:45 SARS-CoV-2 (PCR) Not Detected (NotDetected) 04/30/24 18:45 Coronavirus NL63 (PCR) Not Detected (NotDetected) 04/30/24 18:45 Human Metapneumovir PCR Not Detected (NotDetected) 04/30/24 18:45 Influenza Type A (PCR) Not Detected (NotDetected) 04/30/24 18:45 Influenza Type B (PCR) Not Detected (NotDetected) 04/30/24 18:45 M. pneumoniae (PCR) Not Detected (NotDetected) 04/30/24 18:45 Parainfluenza 1 (PCR) Not Detected (NotDetected) 04/30/24 18:45 Parainfluenza 2 (PCR) Not Detected (NotDetected) 04/30/24 18:45 Parainfluenza 3 (PCR) Not Detected (NotDetected) 04/30/24 18:45 Parainfluenza 4 (PCR) Not Detected (NotDetected) 04/30/24 18:45 RSV (PCR) Not Detected (NotDetected) 04/30/24 18:45 Entero/Rhino (PCR) Not Detected (NotDetected) 04/30/24 18:45 Impressions Chest X-Ray 04/30/24 18:14 HISTORY: Chest pain. TECHNIQUE: Portable AP radiograph of the chest COMPARISON: Chest radiograph dated 04/17/2024. FINDINGS: Cardiomegaly. Pulmonary vascular congestion. Small pleural effusions. Mild left basilar/retrocardiac opacity. No pneumothorax. Left-sided aortic arch. Midline trachea. No acute osseous abnormality. Included upper abdomen is unremarkable. IMPRESSION: 1. No significant interval change. 2. Mild left lung base/retrocardiac opacity, which could reflect atelectasis or pneumonia. 3. Cardiomegaly with mild vascular congestion and small pleural effusions suggesting CHF. Electronically signed by Charlie Rowe 04-30-2024 6:44 PM PG Care Time/CCT Total # of Minutes Spent Total Time Spent with Patient: Total time spent is greater than 50% in coordination of care (as documented) at patient's floor/unit and/or counseling patient: Coding Level of Care Code 16559 IN/OBS CONSULT LVL 5,80M Diagnoses ESRD (end stage renal disease) on dialysis N18.6; Z99.2 Pneumonia J18.9 Hyperuricemia E79.0
--- NOTE | 2024-05-01 11:30 | Hospitalist Progress Note ---
Date of Service May 01, 2024 Assessment & Plan (1) Gout attack: (2) Hyperuricemia: (3) Pneumonia: (4) ESRD (end stage renal disease) on dialysis: Plan The patient is a 68-year-old male with a past medical history including ESRD on HD, history of septic shock, ambulatory dysfunction, proteinuria, gout, hypotension, allergic symptoms, vitamin D deficiency, diabetes mellitus insulin requiring, GERD, anxiety/depression, chronic pain syndrome.The patient presents to the emergency department with complaints of worsening fatigue, joint pain in particular involving left wrist and bilateral ankles, and progressive shortness of breath, however never completely gotten back to normal after admission from 04/17-04/20/2024 for influenza A, and acute respiratory failure with hypoxia. During admission, he had missed previous dialysis due to history of worsening illness as noted. Patient again has missed dialysis yesterday, due to his persistent symptoms. The joint discomfort that is experiencing, is new compared to previous. He denies any recent trauma. [facility]. Of note, he was recently discharged on Augmentin and azithromycin for treatment of close respiratory infection, and during last admission influenza A was treated with Tamiflu. #Acute gout attack/hyperuricemia- Gout involving left hand and wrist, and bilateral ankles- Uric acid level elevated at 7.6 Solu-Medrol 60 mg IV now, and then 40 mg IV every 12 hours Likely secondary to renal issues Levels would improve with HD ESRD on dialysis- Patient typically gets dialysis on Thursday, Thursday and Thursday, having missed dialysis yesterday Thursday Will consult nephrology No indication for acute dialysis this evening Continue usual supportive medications Resolving pneumonia- Chest x-ray overall improved but not completely resolved Doxycycline 100 mg IV every 12 hours Hypertension- Continue carvedilol 6.25 mg p.o. twice daily every day Chronic medical conditions: Diabetes mellitus- Continue glargine 6 units SQ every morning. Placed on Accu-Cheks NovoLog SSI Hyperlipidemia-continue rosuvastatin Anxiety/depression-continue sertraline GERD-Continue omeprazole/pantoprazole Allergic symptoms-continue cetirizine Admission and Anticipated Discharge Date Admission Date: April 30, 2024 Subjective patient seen and examined, says the pain is better Review of Systems Review of Systems: All systems reviewed are negative, apart from the ones contained in the history. Physical Exam Physical Exam: The patient is awake, alert and oriented 3, well developed and well nourished, normocephalic and atraumatic, lying in bed and in no acute distress. HEENT--PERRL, EOMI, mucous membranes and oropharynx mildly dry Neck--supple. No JVD. No bruits. Thyroid normal, trachea midline, no adenopathy. Heart--normal S1 and S2. No murmurs, rubs or gallops. Lungs--clear bilaterally, no respiratory distress, no accessory muscle use. Abdomen--normal bowel sounds and soft. Extremities--no cyanosis or clubbing. No edema. Dermatologic--normal skin turgor, normal color, no abnormal lymph nodes, no rash. Neurologic--cranial nerves II through XII grossly intact. Rheumatologic--normal range of motion. Psychiatric--normal affect. Results & Data Results & Data Vital Signs (Past 12 Hours) Vital Signs Temp Pulse Pulse Resp BP Pulse Ox O2 Del Method 05/01/24 08:00 66 05/01/24 08:00 Room Air 05/01/24 07:54 97.3 F L 62 20 163/71 H 96 Room Air 05/01/24 04:02 97.5 F L 72 18 137/78 97 Room Air PG Care Time/CCT Total # of Minutes Spent Total Time Spent with Patient: Total time spent is greater than 50% in coordination of care (as documented) at patient's floor/unit and/or counseling patient: Coding Level of Care Code 48598 SUB INP/OBS CARE 2/35MIN Diagnoses Gout attack M10.9 Gout etiology: unspecified cause Gout site: multiple sites Hyperuricemia E79.0 Pneumonia J18.9 ESRD (end stage renal disease) on dialysis N18.6; Z99.2 Time Spent (min) 35 (1) Gout attack Gout etiology: unspecified cause Gout site: multiple sites Qualified Code(s): M10.9 - Gout, unspecified
--- NOTE | 2024-05-01 14:32 | Pharmacy Report ---
Pharmacy Glycemic Short Note 2 - Date of Service May 01, 2024 - Glycemic Short BSG Results (Last 24 hours): 04/30/24 05/01/24 05/01/24 18:05 07:25 07:52 Glucose 144 H 331 H* POC Glucose 373 H* 05/01/24 11:52 Glucose POC Glucose 281 H OUTPATIENT ANTIDIABETIC REGIMEN: * Lantus 6 units daily ASSESSMENT: * 68 year old admitted with pneumonia/gout. Pharmacy consulted for glycemic management. Fasting BSG >370 mg/dL this AM. Ordered solumedrol 40 mg iv q 12 hours starting now, received one time dose of solumedrol 60 mg last evening. Patient is ESRD on HD - next dialysis is tomorrow 3/3 per notes. * Will give Lantus 12 units x 1 now this AM - lunch BSG trending down slightly, will tighten novolog parameters more. Since ongoing steroids, will have scale for additional basal insulin if needed this evening. PLAN FOR INPATIENT GLYCEMIC CONTROL: * Hold outpatient oral diabetes medications * Basal insulin * Lantus 12 units x 1 * Lantus 0-12 units HS * Bolus insulin * NovoLog per scale ACHS or Q6hrs while NPO * Goal Range: Low 110 mg/dL - High 140 mg/dL * Correction Factor: 15 mg/dL/unit * Nutritional / Prandial insulin per carb ratio of 1 unit per 6 grams CHO consumed
[2024-05-01] MEDS: LANTUS PER UNIT CHARGE SC SCH (20:54)
[2024-05-02] MEDS: INSULIN ASPART PER UNIT CHARGE SC SCH ×2 (03:56→08:05)
[2024-05-02 07:26] VITALS: RESP 18
[2024-05-02] MEDS ORDERED: GLUCOSE 40% GEL 15 GM TUBE PO PRN ×2 (07:28)
[2024-05-02] MEDS ORDERED: CARBOHYDRATES FOR HYPOGLYCEMIA PO PRN (07:28)
[2024-05-02] MEDS ORDERED: GLUCAGON FOR INJ 1 MG VIAL SQ PRN ×2 (07:28)
[2024-05-02] MEDS ORDERED: DEXTROSE 50% 50 ML SYRINGE IV PRN ×2 (07:28)
[2024-05-02] MEDS ORDERED: GLUCOSE 10 TAB/TUBE PO PRN ×2 (07:28)
[2024-05-02] MEDS: LANTUS PER UNIT CHARGE SC SCH (08:05)
[2024-05-02] MEDS: NEPHROCAPS PO SCH (08:09)
[2024-05-02 08:41] LABS: Hematocrit (blood only) 28.3 % (42.0-52.0); Hemoglobin 9.6 g/dl (14.0-18.0); Mean Corpuscular Hemoglobin 29.6 pg (25.0-34.0); Mean Corpuscular Hgb Conc 33.9 g/dL (32.0-36.0); Mean Corpuscular Volume 87.3 fL (80.0-100.0); Mean Platelet Volume 10.9 fL (9.4-12.4); Platelet Count 187 K/uL (130-400); RDW Coefficient of Variation 13.4 % (11.5-14.5); RDW Standard Deviation 42.8 fL (36.4-46.3); Red Blood Count 3.24 M/uL (4.70-6.10); White Blood Count 11.44 K/ul (4.8-10.8)
--- NOTE | 2024-05-02 08:57 | Nephrology Progress Note ---
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 Orders have been placed in EMR and HD RN notified * Nephrocaps daily * DM/HD diet * Monitor BMP (2) Upper respiratory infection: Plan: * Patient c/o "cold sx" and now has sore throat, myalgias * Will repeat respiratory biofire (3) Pneumonia: Plan: * Recent influenza infection w/ bacterial pneumonia * Remains on doxycycline (4) Hyperuricemia: Plan: * Mild elevation in uric acid * Agree w/ steroid therapy * Agree w/ holding colchicine due to ESKD * Expect uric acid level to come down following HD. Will monitor Admission and Anticipated Discharge Date Admission Date: April 30, 2024 Subjective Mr. Moon was evaluated in his hospital room in preparation for HD today. He reports that his joint discomfort is improved. He denies fever, angina or dyspnea. He feels that he may have picked up a "cold" and now has a sore throat. Review of Systems Constitutional: no fever Eyes: no problem reported Ear, Nose, Mouth, Throat: no problem reported Respiratory: no cough and no dyspnea Cardiovascular: no chest pain Gastrointestinal: no abdominal pain, no nausea, no vomiting and no diarrhea/loose stools Genitourinary: no dysuria Musculoskeletal: + joint pain Integumentary: no rash Physical Exam Constitutional: no acute distress Eyes: PERRL, conjunctivae normal, anicteric sclerae Neck: trachea midline, no thyromegaly Respiratory: normal respiratory effort, lungs clear to auscultation Cardiovascular: Rate/Rhythm: regular rate and regular rhythm Extremities: no edema Gastrointestinal (Abdomen): normal bowel sounds, soft, nontender, no hepatosplenomegaly Skin: no rashes, warm and dry Results & Data Vital Signs (Past 12 Hours) Vital Signs Temp Pulse Resp BP Pulse Ox O2 Del Method 05/02/24 07:24 36.6 C 72 18 158/71 H 93 Room Air 05/02/24 03:25 36.9 C 88 17 146/86 H 96 Room Air 05/01/24 23:37 36.8 C 80 17 162/84 H 98 Room Air Laboratory Results Laboratory Results - last 24 hr 05/01/24 05/01/24 05/01/24 11:52 16:43 20:17 WBC RBC Hgb Hct MCV MCH MCHC RDW Std Deviation RDW Coeff of Inderjit Plt Count MPV POC Glucose 281 H 264 H 132 H Uric Acid Phosphorus 05/02/24 05/02/24 07:53 08:14 WBC 11.44 H RBC 3.24 L Hgb 9.6 L Hct 28.3 L MCV 87.3 MCH 29.6 MCHC 33.9 RDW Std Deviation 42.8 RDW Coeff of Inderjit 13.4 Plt Count 187 MPV 10.9 POC Glucose 306 H* Uric Acid Pending Phosphorus Pending PG Care Time/CCT Total # of Minutes Spent Total Time Spent with Patient: Total time spent is greater than 50% in coordination of care (as documented) at patient's floor/unit and/or counseling patient: Coding Level of Care Code 45067 SUB INP/OBS CARE 3/50MIN Diagnoses ESRD (end stage renal disease) on dialysis N18.6; Z99.2 Upper respiratory infection J06.9 Pneumonia J18.9 Hyperuricemia E79.0
[2024-05-02 09:07] LABS: Phosphorus 5.1 mg/dl (2.5-4.9); Uric Acid 10.1 mg/dl (2.6-7.2)
[2024-05-02 09:31] LABS: Basophils # (auto) 0.01 K/uL (0.00-0.20); Basophils % (auto) 0.1 %; Immature Granulocytes # (auto) 0.07 K/uL (0.01-0.20); Immature Granulocytes % (auto) 0.6 %; Lymphocytes # (auto) 0.73 K/uL (1.20-3.40); Lymphocytes % (auto) 6.4 %; Monocytes # (auto) 0.24 K/uL (0.11-0.59); Monocytes % (auto) 2.1 %; Neutrophils # (auto) 10.39 K/uL (1.40-6.50); Neutrophils % (auto) 90.8 %; Toxic Vacuolation 1+
--- NOTE | 2024-05-02 09:53 | Discharge Summary ---
Discharge Summary Date of Service May 02, 2024 Principal Dx & Hospital Course #1 = Principal Diagnosis (1) Gout attack: Ruled out. The patient does not have acute gout. He does have diffuse arthralgias probably from a viral illness. He was instructed to discuss treatment of hyperuricemia with his PCP (2) Hyperuricemia: Discuss treatment with PCP. He does not have acute gout. Colchicine has been discontinued (3) Pneumonia: No pneumonic infiltrate seen on chest x-ray. No indication for ongoing antibiotic therapy. Ruled out (4) ESRD (end stage renal disease) on dialysis: Continue usual HD schedule. Follow-up with general matcher as needed Plan Home today after dialysis, May 02 Admission HPI Per Admitting Provider The patient is a 68-year-old male with a past medical history including ESRD on HD, history of septic shock, ambulatory dysfunction, proteinuria, gout, hypotension, allergic symptoms, vitamin D deficiency, diabetes mellitus insulin requiring, GERD, anxiety/depression, chronic pain syndrome.The patient presents to the emergency department with complaints of worsening fatigue, joint pain in particular involving left wrist and bilateral ankles, and progressive shortness of breath, however never completely gotten back to normal after admission from 04/17-04/20/2024 for influenza A, and acute respiratory failure with hypoxia. During admission, he had missed previous dialysis due to history of worsening illness as noted. Patient again has missed dialysis yesterday, due to his persistent symptoms. The joint discomfort that is experiencing, is new compared to previous. He denies any recent trauma. [facility]. Of note, he was recently discharged on Augmentin and azithromycin for treatment of close respiratory infection, and during last admission influenza A was treated with Tamiflu. Discharge Exam General-alert and oriented x3, no fever, no chills HEENT-head atraumatic and normocephalic, pupils equal and reactive to light, extraocular muscles intact Neck-no lymphadenopathy or thyromegaly, trachea midline Chest-clear to auscultation. No rales, wheezing or rhonchi Cardiac-regular rate and rhythm, normal S1 and S2 Abdomen-normal bowel sounds, no hepatosplenomegaly Extremities-no cyanosis, clubbing, or edema Neuro-cranial nerves II through XII intact, motor and sensory function within normal limits, strength symmetrical, no focal deficits Psych-normal affect, normal mood Discharge Plan Discharge Items Patient Disposition: Home - Self-Care Reason For Visit: FATIGUE, WEAKNESS, GOUT FLARE, MISSED DIALYSIS Discharge Diagnosis: Suspected viral illness, arthralgia, elevated uric acid levels Activity: Resume your previous activity Non-emergency contact: Primary Care Provider and 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 Resume usual dialysis schedule. Discuss treatment of elevated uric acid levels with primary care provider Pending Studies at Discharge: No Stand-Alone Forms: My [employer], Smoking Cessation Medications and DC Order Prescriptions: Continued (DME) Manual Wheelchair Device See Rx Instructions .Route Qty: 1 0RF Rx Instructions: As directed - with foot rests (DME) HEAVY DUTY WHEEL CHAIR (WITH FOOT RESTS) See Rx Instructions .Route .MEDSUPPLY Qty: 1 0RF Rx Instructions: As directed to aid in patient mobility & transportation Patient weight: 260 lbs Patient Height: 5 ft 6 in (DME) OneTouch Verio test strips Strip See Rx Instructions .Route Qty: 50 11RF Rx Instructions: Test once daily & as needed E11.65 (DME) pen needle, diabetic [BD Ultra-Fine Short Pen Needle] 31 gauge x 5/16" needle See Rx Instructions .Route Qty: 100 4RF Rx Instructions: As directed (DME) pen needle, diabetic, safety 30 gauge x 3/16" needle See Rx Instructions .Route Qty: 100 4RF Rx Instructions: as directed - daily once lactulose 10 gram/15 mL (15 mL) solution 10 g PO DAILY PRN (Reason: constipation) Qty: 600 2RF tramadol 50 mg tablet 50 mg PO BID PRN (Reason: pain) Qty: 30 0RF mupirocin 2 % ointment 1 applic topical BID Qty: 15 0RF Rx Instructions: apply small amount to open area on the abdomen twice daily Velphoro 500 mg tablet,chewable 500 mg PO TID carvedilol 6.25 mg tablet 6.25 mg PO DIRECTED Qty: 100 3RF Rx Instructions: give 1 tablet 2 times a day every e,,sat,sun hold for <SBP 100 or HR<60 omeprazole 20 mg capsule,delayed release(DR/EC) 20 mg PO DAILY Qty: 90 3RF Glucagon Emergency Kit (human) 1 mg recon soln See Rx Instructions IM .COMPLEX Rx Instructions: intramuscularly PRN NEEDED FOR HYPOGLYCEMIA BLOOD GLUCOSE <60 AND SYMPTOMATIC/UNRESPONSIVE. MAY REPEAT IN 15 MINUTES IF NEEDED.; (DME) lancing device with lancets [Ethical Ocean Lanc Device] Kit See Rx Instructions .Route Qty: 1 0RF Rx Instructions: Test once daily & as needed (DME) lancets [OneTouch Delica Lancets] 33 gauge misc See Rx Instructions .Route Qty: 100 6RF Rx Instructions: Test once daily and as directed cetirizine 10 mg tablet 10 mg PO DAILY Qty: 90 3RF insulin glargine [Lantus Solostar U-100 Insulin] 100 unit/mL (3 mL) insulin pen 6 unit SC QAM Qty: 15 5RF rosuvastatin 10 mg tablet 10 mg PO HS Qty: 90 3RF sertraline [Zoloft] 50 mg tablet 50 mg PO DAILY Qty: 90 3RF (DME) Power Wheelchair Device See Rx Instructions .Route Qty: 1 0RF Rx Instructions: As directed ergocalciferol (vitamin D2) [Vitamin D2] 1,250 mcg (50,000 unit) capsule 1,250 mcg PO WK Rx Instructions: azithromycin 250 mg Tablet 500 mg PO QAM Qty: 5 0RF guaifenesin [Mucinex] 600 mg Tablet Extended Release 12hr 600 mg PO Q12 Qty: 30 0RF amoxicillin-pot clavulanate [Augmentin] 500-125 mg tablet 1 tab PO BID Qty: 10 0RF Discharge Orders: Discharge Order (Routine); Ordered 05/02/24 Ordered By: Bon Henry Admission Data Admit Date/Time: 04/30/24 20:49 Attending Provider: Bon Henry Admit Provider: Jani Bryant Primary Care Provider: Manoj Vasquez Other Providers: Jani Bryant; Aquilino Miller Hospital Stay Data Consultations 04/30/24 19:56 ED Decision to Admit Stat 04/30/24 22:23 Consult Nephrology Routine Pending Results Patient Have Any Pending Studies at Discharge: No Discharge Instructions Given to Patient (Per Discharging Provider) Home medications remain the same. Resume usual dialysis schedule. Discuss treatment of elevated uric acid levels with primary care provider Total Time Total Time Spent Total Time Spent (In Minutes): 50 minutes Coding Level of Care Code 16142 INP/OBS DISCH >30 MIN Diagnoses Gout attack M10.9 Gout etiology: unspecified cause Gout site: multiple sites Hyperuricemia E79.0 Pneumonia J18.9 ESRD (end stage renal disease) on dialysis N18.6; Z99.2
[2024-05-02] MEDS: HEPARIN SOD (PORCINE) 1000 UNIT/ML IV ONE (11:11)
[2024-05-02] MEDS: HEPARIN SOD (PORCINE) 1000 UNIT/ML IV SCH (11:11)
[2024-05-02] MEDS: EPOETIN ALFA 10,000 UNITS/ML VIAL IV ONE (12:53)
[2024-05-02 13:37] VITALS: BP 144/75; TEMP 97.7
[2024-05-02 13:40] VITALS: PULSE 65; O2SAT 95
--- NOTE | 2024-05-02 15:51 | Electrocardiogram Report ---
Test Reason : Blood Pressure : */* mmHG Vent. Rate : 80 BPM Atrial Rate : 80 BPM P-R Int : 158 ms QRS Dur : 94 ms QT Int : 388 ms P-R-T Axes : -4 30 60 degrees QTcB Int : 447 ms Normal sinus rhythm Normal ECG When compared with ECG of 17-Apr-2024 02:24, No significant change was found Confirmed by José Miguel Marcial ([id number]) on 05/02/2024 3:50:52 PM Referred By: REFERRED SELF Confirmed By: José Miguel Mracial
== END 2024-05-02 15:16 | disposition home or self-care (01) | DRG 865 ==
LOC: ED 17:51 → SUATTDRO 20:49 → 4W 20:49